=== PATIENT | female | born 1950 | race Caucasian/White ===

== ENCOUNTER 2023-12-04 13:14 | Inpatient (IN) | payer MEDICARE, OTHER ==
--- NOTE | 2023-12-04 15:15 | ED ---
Skin/Abscess/FB HPI - General Chief complaint: Skin/Abscess/Foreign Body Stated complaint: Leg wound Time Seen by Provider: 12/04/23 13:40 Source: EMS Mode of arrival: EMS Limitations: no limitations - History of Present Illness Initial comments: 73-year-old female presents emergency department with abdominal wound. She reports that on Saturday she noted that she began having some drainage from her abdominal wall. She has been attempting to cover this area but it consistently continues to drain. She denies any pain at the site. No fevers. Does admit to some generalized weakness. No history of cancer. She denies any chest pain or shortness of breath. She states that she has not been eating or drinking. She has been sitting in her chair. Normally has a friend who obtains groceries for her. EMS found the patient to have extremely malodorous drainage from her abdominal wall. Also large sacral wound is noted. No other alleviating, precipitating or modifying factors - Related Data Home Medications Medication Instructions Recorded Confirmed No Known Home Medications 12/04/23 12/04/23 Allergies Allergy/AdvReac Type Severity Reaction Status Date / Time latex Allergy Rash/Hives Verified 12/04/23 17:49 Review of Systems ROS Statement: Those systems with pertinent positive or pertinent negative responses have been documented in the HPI. ROS Other: All systems not noted in ROS Statement are negative. Past Medical History Past Medical History: Unable to Obtain History of Any Multi-Drug Resistant Organisms: None Reported Additional Past Surgical History / Comment(s): R below the knee amputation Past Psychological History: No Psychological Hx Reported - Past Family History Father Additional Family Medical History / Comment(s): Colon Cancer General Exam Limitations: no limitations General appearance: alert, in no apparent distress Head exam: Present: atraumatic, normocephalic, normal inspection Eye exam: Present: normal appearance, PERRL, EOMI. Absent: scleral icterus, conjunctival injection, periorbital swelling ENT exam: Present: normal exam, mucous membranes moist Neck exam: Present: normal inspection. Absent: tenderness, meningismus, lymphadenopathy Respiratory exam: Present: normal lung sounds bilaterally. Absent: respiratory distress, wheezes, rales, rhonchi, stridor Cardiovascular Exam: Present: regular rate, normal rhythm, normal heart sounds. Absent: systolic murmur, diastolic murmur, rubs, gallop, clicks GI/Abdominal exam: Present: other (through and through defect left lower abdominal wall spilling fecal material, malodorous). Absent: distended, guarding, rebound, rigid Extremities exam: Present: normal inspection, full ROM, normal capillary refill. Absent: tenderness, pedal edema, joint swelling, calf tenderness Back exam: Present: normal inspection Neurological exam: Present: alert, oriented X3, CN II-XII intact Psychiatric exam: Present: normal affect, normal mood Skin exam: Present: warm, dry, intact, normal color. Absent: rash Course Vital Signs 12/04/23 12/04/23 12/04/23 13:30 13:35 13:40 Temperature 98.6 F Pulse Rate 89 86 86 Respiratory 15 18 21 Rate Blood Pressure 129/51 119/63 119/63 O2 Sat by Pulse 96 Oximetry 12/04/23 12/04/23 12/04/23 18:48 19:19 20:52 Temperature Pulse Rate 81 80 Respiratory 18 14 Rate Blood Pressure 87/42 96/43 94/43 O2 Sat by Pulse 97 94 L Oximetry 12/04/23 12/04/23 12/04/23 21:18 22:00 22:20 Temperature Pulse Rate 85 79 79 Respiratory 16 16 22 Rate Blood Pressure 86/58 91/41 73/40 O2 Sat by Pulse 100 97 97 Oximetry 12/04/23 12/04/23 12/04/23 22:25 23:08 23:30 Temperature Pulse Rate 81 79 81 Respiratory 17 18 16 Rate Blood Pressure 86/38 89/39 84/54 O2 Sat by Pulse 97 98 97 Oximetry 12/05/23 12/05/23 12/05/23 01:00 02:00 04:00 Temperature Pulse Rate 82 79 84 Respiratory 18 18 18 Rate Blood Pressure 81/36 91/40 98/42 O2 Sat by Pulse 98 98 96 Oximetry 12/05/23 12/05/23 12/05/23 05:00 06:24 07:00 Temperature Pulse Rate 82 92 87 Respiratory 18 18 18 Rate Blood Pressure 99/50 101/52 102/51 O2 Sat by Pulse 98 95 97 Oximetry 12/05/23 12/05/23 12/05/23 09:17 11:00 13:40 Temperature Pulse Rate 85 85 78 Respiratory 18 18 18 Rate Blood Pressure 97/46 104/81 111/51 O2 Sat by Pulse 97 98 98 Oximetry Medical Decision Making - Medical Decision Making Was pt. sent in by a medical professional or institution (, SONAL, QUALITY AUDIT REPRESENTATIVE, urgent care, hospital, or intermediate...) When possible be specific @ -No Did you speak to anyone other than the patient for history (EMS, parent, family, police, friend...)? What history was obtained from this source @ -EMS Did you review nursing and triage notes (agree or disagree)? Why? @ -I reviewed and agree with nursing and triage notes Were old charts reviewed (outside hosp., previous admission, EMS record, old EKG, old radiological studies, urgent care reports/EKG's, intermediate records)? Report findings @ -No old charts were reviewed Differential Diagnosis (chest pain, altered mental status, abdominal pain women, abdominal pain men, vaginal bleeding, weakness, fever, dyspnea, syncope, h eadache, dizziness, GI bleed, back pain, seizure, CVA, palpatations, mental health, musculoskeletal)? @ -diverticulitis, colitis, cancer, coloenteric fistula EKG interpreted by me (3pts min.). @ -Yes and demonstrates sinus rhythm with a rate of 85. MA interval 164. QRS 84. QTc of 443. No acute ST segment elevations or depressions X-rays interpreted by me (1pt min.). @ -None done CT interpreted by me (1pt min.). @ -pending U/S interpreted by me (1pt. min.). @ -None done What testing was considered but not performed or refused? (CT, X-rays, U/S, labs)? Why? @ -None What meds were considered but not given or refused? Why? @ -None Did you discuss the management of the patient with other professionals (professionals i.e. , SONAL, QUALITY AUDIT REPRESENTATIVE, lab, RT, psych nurse, social media developer, farm tractor mechanic, teacher, ground nuclear weapons assembly officer, ed case manager)? Give summary @ -dr barakat who will follow up on ordered CT Was smoking cessation discussed for >3mins.? @ -No Was critical care preformed (if so, how long)? @ -No Were there social determinants of health that impacted care today? How? (Homelessness, low income, unemployed, alcoholism, drug addiction, transportation, low edu. Level, literacy, decrease access to med. care, prison, rehab)? @ -patient doesn't see a doctor Was there de-escalation of care discussed even if they declined (Discuss DNR or withdrawal of care, Hospice)? DNR status @ -No What co-morbidities impacted this encounter? (DM, HTN, Smoking, COPD, CAD, Cancer, CVA, ARF, Chemo, Hep., AIDS, mental health diagnosis, sleep apnea, morbid obesity)? @ -None Was patient admitted / discharged? Hospital course, mention meds given and route, prescriptions, significant lab abnormalities, going to OR and other pertinent info. @ -admitted. labs and ct ordered. patient administered antibiotics. she will be signed out to dr. barakat pending ct read Undiagnosed new problem with uncertain prognosis? @ -yes Drug Therapy requiring intensive monitoring for toxicity (Heparin, Nitro, Insulin, Cardizem)? @ -No Were any procedures done? @ -No Diagnosis/symptom? @ -acute coloenteric fistula, leukocytosis Acute, or Chronic, or Acute on Chronic? @ -acute Uncomplicated (without systemic symptoms) or Complicated (systemic symptoms)? @ -complicated Side effects of treatment? @ -No Exacerbation, Progression, or Severe Exacerbation? @ -No Poses a threat to life or bodily function? How? (Chest pain, USA, SC, pneumonia, PE, COPD, DKA, ARF, appy, cholecystitis, CVA, Diverticulitis, Homicidal, Svetlana cidal, threat to staff... and all critical care pts) @ -yes, patient has high risk of sepsis - Lab Data Result diagrams: 12/06/23 21:21 12/06/23 21:21 Lab Results 12/04/23 12/04/23 12/04/23 Range/Units 13:44 13:44 13:44 WBC 23.4 H (3.8-10.6) k/uL RBC 3.27 L (3.80-5.40) m/uL Hgb 7.4 L (11.4-16.0) gm/dL Hct 24.6 L (34.0-46.0) % MCV 75.3 L (80.0-100.0) fL MCH 22.7 L (25.0-35.0) pg MCHC 30.1 L (31.0-37.0) g/dL RDW 20.5 H (11.5-15.5) % Plt Count 763 H (150-450) k/uL MPV 6.8 Neutrophils % 94 % Lymphocytes % 4 % Monocytes % 1 % Eosinophils % 1 % Basophils % 0 % Neutrophils # 22.0 H (1.3-7.7) k/uL Lymphocytes # 0.9 L (1.0-4.8) k/uL Monocytes # 0.3 (0-1.0) k/uL Eosinophils # 0.1 (0-0.7) k/uL Basophils # 0.0 (0-0.2) k/uL Hypochromasia Marked Anisocytosis Moderate Microcytosis Moderate Sodium 139 (137-145) mmol/L Potassium 2.9 L (3.5-5.1) mmol/L Chloride 107 (98-107) mmol/L Carbon Dioxide 25 (22-30) mmol/L Anion Gap 7 mmol/L BUN 16 (7-17) mg/dL Creatinine 0.77 (0.52-1.04) mg/dL Est GFR (CKD-EPI)AfAm 89 (>60 ml/min/1.73 sqM) Est GFR (CKD-EPI)NonAf 77 (>60 ml/min/1.73 sqM) Glucose 89 (74-99) mg/dL Plasma Lactic Acid Festus (0.7-2.0) mmol/L Calcium 7.6 L (8.4-10.2) mg/dL Total Bilirubin 0.4 (0.2-1.3) mg/dL AST 16 (14-36) U/L ALT 7 (4-34) U/L Alkaline Phosphatase 169 H (38-126) U/L Troponin I (0.000-0.034) ng/mL Total Protein 4.9 L (6.3-8.2) g/dL Albumin 2.0 L (3.5-5.0) g/dL Lipase <10 L (23-300) U/L Urine Color Yellow Urine Appearance Cloudy H (Clear) Urine pH 5.5 (5.0-8.0) Ur Specific Ariton 1.020 (1.001-1.035) Urine Protein 1+ H (Negative) Urine Glucose (UA) Negative (Negative) Urine Ketones 1+ H (Negative) Urine Blood Large H (Negative) Urine Nitrite Positive H (Negative) Urine Bilirubin Negative (Negative) Urine Urobilinogen 2.0 (<2.0) mg/dL Ur Leukocyte Esterase Large H (Negative) Urine RBC 8 H (0-5) /hpf Urine WBC 13 H (0-5) /hpf Ur Squamous Epith Cells 1 (0-4) /hpf Urine Bacteria Many H (None) /hpf Urine Mucus Moderate H (None) /hpf Blood Type Confirm 12/04/23 12/04/23 12/04/23 Range/Units 13:44 13:44 13:44 WBC (3.8-10.6) k/uL RBC (3.80-5.40) m/uL Hgb (11.4-16.0) gm/dL Hct (34.0-46.0) % MCV (80.0-100.0) fL MCH (25.0-35.0) pg MCHC (31.0-37.0) g/dL RDW (11.5-15.5) % Plt Count (150-450) k/uL MPV Neutrophils % % Lymphocytes % % Monocytes % % Eosinophils % % Basophils % % Neutrophils # (1.3-7.7) k/uL Lymphocytes # (1.0-4.8) k/uL Monocytes # (0-1.0) k/uL Eosinophils # (0-0.7) k/uL Basophils # (0-0.2) k/uL Hypochromasia Anisocytosis Microcytosis Sodium (137-145) mmol/L Potassium (3.5-5.1) mmol/L Chloride (98-107) mmol/L Carbon Dioxide (22-30) mmol/L Anion Gap mmol/L BUN (7-17) mg/dL Creatinine (0.52-1.04) mg/dL Est GFR (CKD-EPI)AfAm (>60 ml/min/1.73 sqM) Est GFR (CKD-EPI)NonAf (>60 ml/min/1.73 sqM) Glucose (74-99) mg/dL Plasma Lactic Acid Festus 0.9 (0.7-2.0) mmol/L Calcium (8.4-10.2) mg/dL Total Bilirubin (0.2-1.3) mg/dL AST (14-36) U/L ALT (4-34) U/L Alkaline Phosphatase (38-126) U/L Troponin I <0.012 (0.000-0.034) ng/mL Total Protein (6.3-8.2) g/dL Albumin (3.5-5.0) g/dL Lipase (23-300) U/L Urine Color Urine Appearance (Clear) Urine pH (5.0-8.0) Ur Specific Ariton (1.001-1.035) Urine Protein (Negative) Urine Glucose (UA) (Negative) Urine Ketones (Negative) Urine Blood (Negative) Urine Nitrite (Negative) Urine Bilirubin (Negative) Urine Urobilinogen (<2.0) mg/dL Ur Leukocyte Esterase (Negative) Urine RBC (0-5) /hpf Urine WBC (0-5) /hpf Ur Squamous Epith Cells (0-4) /hpf Urine Bacteria (None) /hpf Urine Mucus (None) /hpf Blood Type Confirm A Positive Disposition Clinical Impression: Bricelyn-enteric fistula Disposition: ADMITTED IP TO THIS [facility] Condition: Critical Is patient prescribed a controlled substance at d/c from ED?: No
[2023-12-04 15:34] LABS: Anisocytosis Moderate; Basophils % (A) 0 %; Eosinophils # (A) 0.1 k/uL (0-0.7); Eosinophils % (A) 1 %; HCT 24.6 % (34.0-46.0); HGB 7.4 gm/dL (11.4-16.0); Hypochromasia Marked; Lymphocytes # (A) 0.9 k/uL (1.0-4.8); Lymphocytes % (A) 4 %; MCH 22.7 pg (25.0-35.0); MCHC 30.1 g/dL (31.0-37.0); MCV 75.3 fL (80.0-100.0); Mean Platelet Volume 6.8; Microcytosis Moderate; Monocytes # (A) 0.3 k/uL (0-1.0); Monocytes % (A) 1 %; Neutrophils % (A) 94 %; Platelet Count 763 k/uL (150-450); RBC 3.27 m/uL (3.80-5.40); RDW 20.5 % (11.5-15.5); WBC 23.4 k/uL (3.8-10.6)
[2023-12-04] MEDS: SODIUM CHLORIDE 0.9% 1,000 ML IV STA (15:38)
[2023-12-04 16:04] LABS: ALT 7 U/L (4-34); AST 16 U/L (14-36); African American GFR (CKD) 89 (>60 ml/min/1.73 sqM); Alkaline Phosphatase 169 U/L (38-126); Anion Gap 7 mmol/L; Blood Urea Nitrogen 16 mg/dL (7-17); Calcium 7.6 mg/dL (8.4-10.2); Carbon Dioxide 25 mmol/L (22-30); Chloride 107 mmol/L (98-107); Glucose 89 mg/dL (74-99); Lipase <10 U/L (23-300); Non-African American GFR(CKD) 77 (>60 ml/min/1.73 sqM); Potassium 2.9 mmol/L (3.5-5.1); Sodium 139 mmol/L (137-145); Total Bilirubin 0.4 mg/dL (0.2-1.3); Total Protein 4.9 g/dL (6.3-8.2)
[2023-12-04] MEDS: PIPERACILLIN-TAZOBACTAM 3.375 GM in SODIUM CHLORIDE 0.9% 100 ML IVPB STA (17:51)
[2023-12-04 17:54] LABS: Appearance,Urine Cloudy (Clear); Bacteria,Urine Many /hpf; Bilirubin,Urine Negative (Negative); Blood,Urine Large (Negative); Color,Urine Yellow; Glucose,Urine (UA) Negative (Negative); Ketones,Urine 1+ (Negative); Leukocyte Esterase,Urine Large (Negative); Mucus,Urine Moderate /hpf; Nitrite,Urine Positive (Negative); PH, Urine 5.5 (5.0-8.0); Protein,Urine 1+ (Negative); RBC,Urine 8 /hpf (0-5); Squamous Epithelial Cell,Urine 1 /hpf (0-4); WBC,Urine 13 /hpf (0-5)
--- NOTE | 2023-12-04 18:01 | CT ---
EXAMINATION TYPE: CT abdomen pelvis w con DATE OF EXAM: 12/04/2023 COMPARISON: NONE HISTORY: 73-year-old female Pain/drainage coming from wound on lower stomach, cancer. TECHNIQUE: Contiguous axial scanning of the abdomen and pelvis following administration of 100 ml Iso jelena 300 IV contrast. Delayed images through the kidneys and coronal/sagittal reconstructions perform ed. CT DLP: 1004.3 mGycm Automated exposure control for dose reduction was used. FINDINGS: The heart is normal size without pericardial effusion. Mild generalized anasarca unchanged. Gallbladder mildly hydropic without any surrounding inflammation. Multiple gallstones measuring up to 1.7 cm. Hydrocele related to fasting state. Some focal fat along the anterior falciform ligament. Portal venous system is patent. No biliary duct al dilatation. A 2.1 cm left adrenal nodule is noted. A 1.3 cm right adrenal nodule. Right kidney, spleen, and atrophic pancreas show no gross abnormality. Left-sided renal cortical cysts, largest measuring 4.4 cm. No dilated small bowel, free fluid, or free air. No mesenteric or retroperitoneal lymphadenopathy. Normal appendix. Scattered mild stool. There is moderate circumferential wall thickening extending from the mid sigmoid colon to the rectum and some scattered sigmoid colonic diverticulosis also noted. Possible subtle intermural phlegmon, fo r example, axial image 67 and coronal image 43 also containing small foci of air, coronal image 44. Bladder is partially distended and demonstrates focal tenting along the dome of the bladder where the re may be a fistulous tract extending superiorly to a 3 cm loculated air. There may be a second fistu lous communication with the subjacent thickened mid sigmoid colon, coronal image 36 and 37. Possible additional fistulous communication extending laterally from the thickened sigmoid colon in t he left inguinal region where the patient's wound is present, axial images 67 and 68 and coronal imag e 33. Uterus surgically absent. Questionable visualization of small bilateral ovaries. An additional midline sacral decubitus ulcer is noted. This is a nearly full-thickness wound at the l evel of the coccyx without any john osseous erosion seen at this time. Moderate multilevel spondylotic change in the lumbar spine. IMPRESSION: 1. MODERATELY THICKENED MID TO DISTAL SIGMOID COLON AND RECTUM, POSSIBLE SUBACUTE DIVERTICULITIS/COLI TIS. SOME SCATTERED INTRAMURAL PHLEGMON MAY BE PRESENT. 2. POSSIBLE FISTULOUS COMMUNICATION EXTENDING SUPERIORLY FROM THE THICKENED MID SIGMOID COLON TO A 3 CM LOCULE OF AIR. ANOTHER POSSIBLE FISTULOUS COMMUNICATION FROM THIS LOCULE OF AIR DOWN TO THE DOME O F THE BLADDER. 3. A THIRD POSSIBLE FISTULA (ENTEROCUTANEOUS) EXTENDING FROM THE LEFT LATERAL WALL OF THE MID SIGMOID TO THE LEFT INGUINAL REGION WHERE THE PATIENT'S WOUND IS LOCATED. 4. ADDITIONAL DEEP MIDLINE SACRAL DECUBITUS ULCER. THIS IS A FULL-THICKNESS ULCER CONTACTING THE UNDE RLYING COCCYX. NO JOHN BONY DESTRUCTION IS SEEN TO CLEARLY INDICATE A CONTIGUOUS OSTEOMYELITIS AT TH IS TIME. CAREFUL SURVEILLANCE FOLLOW-UP IS ADVISED FOR IMPENDING OSTEOMYELITIS. 5. RECOMMEND THREE-MONTH FOLLOW-UP ADRENAL MASS PROTOCOL CT TO REASSESS THE 2.1 CM LEFT ADRENAL NODUL E AND 1.3 CM RIGHT ADRENAL NODULE . 6. CHOLELITHIASIS, GENERALIZED ANASARCA CHANGE.
[2023-12-04] MEDS ORDERED: NALOXONE 0.4 MG/ML 1 ML VIAL IV PRN (18:04)
[2023-12-04] MEDS ORDERED: Potassium Replacement Protocol 1 EACH MISC MISCELLANE PRN ×2 (18:55→19:17)
[2023-12-04] MEDS ORDERED: Magnesium Replacement Protocol 1 EACH MISC MISCELLANE PRN (19:17)
--- NOTE | 2023-12-04 19:44 | P.HPIM ---
History of Present Illness This is a pleasant 73 years old female who presents to the emergency room for lower abdominal fistula drainage, associated with generalized weakness. Patient looks awake alert but tired looking, pale. Feels generally weak. N has mild generalized abdominal pain and tenderness. No rebound tenderness. Blood with malodorous left lower abdominal fistula drainage with fecal material coming out. Patient also with right rotation. Patient also with unstageable sacral pressure ulcer. With some evidence of cellulitis. Patient is mildly confused. But no headache or weakness in upper or lower patient was hypotensive with a blood pressure/42, currently slightly better 96/43. Potassium is low 2.9, WBC elevated 23,000, hemoglobin 7.4. Creatinine 0.7. Liver enzymes unremarkable. CT of the abdomen pelvis showing sigmoid diverticulitis and proctitis. 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 Please refer to the report for more details. Patient was ordered received normal saline boluses. Currently on Normosol at 130 mL/h She received 1 dose of Zosyn and started on Flagyl. We are going to add cefepime for gram-negative coverage. Review of Systems Review of systems CONSTITUTIONAL: No fever, no malaise, no fatigue. HEENT: No recent visual problems or hearing problems. Denied any sore throat. CARDIOVASCULAR: No orthopnea, PND, no palpitations, no syncope. PULMONARY: No shortness of breath, no cough, no hemoptysis. -GASTROINTESTINAL: As above NEUROLOGICAL: No headaches, no weakness, no numbness. HEMATOLOGICAL: Denies any bleeding or petechiae. GENITOURINARY: Denies any burning micturition, frequency, or urgency. MUSCULOSKELETAL/RHEUMATOLOGICAL: Denies any joint pain, swelling, or any muscle pain. ENDOCRINE: Denies any polyuria or polydipsia. Past Medical History Past Medical History: Unable to Obtain History of Any Multi-Drug Resistant Organisms: None Reported Additional Past Surgical History / Comment(s): R below the knee amputation Past Psychological History: No Psychological Hx Reported Medications and Allergies Home Medications Medication Instructions Recorded Confirmed Type No Known Home Medications 12/04/23 12/04/23 History Allergies Allergy/AdvReac Type Severity Reaction Status Date / Time latex Allergy Rash/Hives Verified 12/04/23 17:49 Physical Exam Vitals: Vital Signs Temp Pulse Resp BP Pulse Ox 12/04/23 13:35 98.6 F 86 18 119/63 96 Intake and Output 12/03/23 12/04/23 12/04/23 22:59 06:59 14:59 Other: Weight 81.647 kg -GENERAL: The patient is alert and oriented x3, confused, not in any acute distress. Well developed, well nourished. -HEENT: Pupils are round and equally reacting to light. EOMI. No scleral icterus. No conjunctival pallor. Normocephalic, atraumatic. No pharyngeal saray thema. No thyromegaly. CARDIOVASCULAR: S1 and S2 present. No murmurs, rubs, or gallops.., With dry mucous membrane PULMONARY: Chest is clear to auscultation, no wheezing , no crackles. -ABDOMEN: Soft, nontender, nondistended, normoactive bowel sounds. No palpable organomegaly. Left lower abdominal fistula with fecal material draining, light brown, looks formed, mildly loose. No blood. No black discoloration. No evidence of cellulitis. No significant tenderness, has generalized tenderness, mild no rebound tenderness. -MUSCULOSKELETAL: No joint swelling or deformity. Unstageable sacral pressure ulcer EXTREMITIES: No cyanosis, clubbing, or pedal edema. NEUROLOGICAL: Gross neurological examination did not reveal any focal deficits. SKIN: No rashes. no petechiae. Results CBC & Chem 7: 12/04/23 13:44 12/04/23 13:44 Assessment and Plan Assessment: Pointed colitis acute sigmoid colitis, diverticulitis with proctitis. With multiple anterior cutaneous and anterior for cycle fistulas, including to the left lower abdominal wall. Severe sepsis with leukocytosis and hypotension, present on admission. Dehydration and hypovolemia. Acute anemia, unknown baseline, chronic microcytic Full-thickness sacral pressure ulcer, with no obvious osseous erosions. Metabolic encephalopathy, with possible elements of delirium Bilateral adrenal nodule, recommend follow-up CT in 3 months. Acute urinary tract infection/cystitis Plan: Continue with IV fluid and monitor vitals Continue with antibiotic, Flagyl and add IV cefepime IV Protonix Keep n.p.o. Surgery team consult already contacted from the emergency room Replace monitor hemoglobin and transfuse for Hb less than 7 tart patient on IV Protonix. Vitamin B 1 2 Check for C. difficile ID team consult Monitor and follow-up blood culture DVT prophylaxis: Hold on anticoagulation now to rule out GI bleed. SCD GI prophylaxis: Protonix Prognosis guarded
[2023-12-04] MEDS: SODIUM CHLORIDE 0.9% 500 ML 500 ML IV ONE (20:08)
[2023-12-04] MEDS: SODIUM CHLORIDE 0.9% 1,000 ML IV SCH (20:15)
[2023-12-04] MEDS: metroNIDAZOLE-NS PMX 500 MG in SALINE 1 100ML.BAG IVPB SCH (20:16)
[2023-12-04 20:31] LABS: Anisocytosis Moderate; Basophils % (A) 0 %; Eosinophils % (A) 0 %; HCT 26.4 % (34.0-46.0); HGB 7.9 gm/dL (11.4-16.0); Hypochromasia Marked; Lymphocytes # (A) 1.1 k/uL (1.0-4.8); Lymphocytes % (A) 4 %; MCH 22.9 pg (25.0-35.0); MCV 76.4 fL (80.0-100.0); Mean Platelet Volume 6.6; Microcytosis Moderate; Monocytes # (A) 0.4 k/uL (0-1.0); Monocytes % (A) 2 %; Neutrophils # (A) 22.1 k/uL (1.3-7.7); Neutrophils % (A) 93 %; Platelet Count 735 k/uL (150-450); RBC 3.46 m/uL (3.80-5.40); RDW 20.5 % (11.5-15.5); WBC 23.7 k/uL (3.8-10.6)
[2023-12-04 20:37] LABS: INR 1.3 (<1.2); Partial Thromboplastin Time 31.8 sec (22.0-30.0); Prothrombin Time 13.8 sec (10.0-12.5)
[2023-12-04 21:20] LABS: African American GFR (CKD) >90 (>60 ml/min/1.73 sqM); Anion Gap 9 mmol/L; Blood Urea Nitrogen 16 mg/dL (7-17); Calcium 7.3 mg/dL (8.4-10.2); Carbon Dioxide 19 mmol/L (22-30); Chloride 110 mmol/L (98-107); Glucose 74 mg/dL (74-99); Non-African American GFR(CKD) 86 (>60 ml/min/1.73 sqM); Potassium 3.2 mmol/L (3.5-5.1); Sodium 138 mmol/L (137-145)
[2023-12-04] MEDS: SODIUM CHLORIDE 0.9% 1,000 ML IV ONE (23:13)
[2023-12-04] MEDS: CEFEPIME 2 GM in SODIUM CHLORIDE 0.9% 100 ML IVPB SCH (23:16)
[2023-12-05 02:14] LABS: Glucose,Whole Blood 85 mg/dL (70-110)
[2023-12-05 03:44] LABS: Erythrocyte Sedimentation Rate 75 mm/Hr (0-30)
--- NOTE | 2023-12-05 07:16 | P.GSCN ---
History of Present Illness Consult date: 12/04/23 History of present illness: Patient seen and evaluated. She reports 1 week ago rupture of drainage from the left lower quadrant. Patient has never had a colonoscopy. No prior cardiac risk assessment. No medical care. She reports mild lower lower quadrant abdominal pain. 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 Severe anemia with sepsis. Recommend immediate cardiac risk assessment. Will need colectomy with colostomy as described. Will need infectious disease management. Close follow-up. Past Medical History Past Medical History: Unable to Obtain History of Any Multi-Drug Resistant Organisms: None Reported Additional Past Surgical History / Comment(s): R below the knee amputation Past Psychological History: No Psychological Hx Reported Medications and Allergies Home Medications Medication Instructions Recorded Confirmed Type No Known Home Medications 12/04/23 12/04/23 History Allergies Allergy/AdvReac Type Severity Reaction Status Date / Time latex Allergy Rash/Hives Verified 12/04/23 17:49 Surgical - Exam Vital Signs Pulse Resp BP 89 15 129/51 12/04/23 13:30 12/04/23 13:30 12/04/23 13:30 Results - Labs 12/04/23 20:08 12/04/23 20:08 Abnormal Lab Results - Last 24 Hours (Table) 12/04/23 12/04/23 12/04/23 Range/Units 13:44 13:44 13:44 WBC 23.4 H (3.8-10.6) k/uL RBC 3.27 L (3.80-5.40) m/uL Hgb 7.4 L (11.4-16.0) gm/dL Hct 24.6 L (34.0-46.0) % MCV 75.3 L (80.0-100.0) fL MCH 22.7 L (25.0-35.0) pg MCHC 30.1 L (31.0-37.0) g/dL RDW 20.5 H (11.5-15.5) % Plt Count 763 H (150-450) k/uL Neutrophils # 22.0 H (1.3-7.7) k/uL Lymphocytes # 0.9 L (1.0-4.8) k/uL ESR (0-30) mm/Hr PT (10.0-12.5) sec INR (<1.2) APTT (22.0-30.0) sec Potassium 2.9 L (3.5-5.1) mmol/L Chloride (98-107) mmol/L Carbon Dioxide (22-30) mmol/L Calcium 7.6 L (8.4-10.2) mg/dL Alkaline Phosphatase 169 H (38-126) U/L C-Reactive Protein (<1.0) mg/dL Total Protein 4.9 L (6.3-8.2) g/dL Albumin 2.0 L (3.5-5.0) g/dL Lipase <10 L (23-300) U/L Urine Appearance Cloudy H (Clear) Urine Protein 1+ H (Negative) Urine Ketones 1+ H (Negative) Urine Blood Large H (Negative) Urine Nitrite Positive H (Negative) Ur Leukocyte Esterase Large H (Negative) Urine RBC 8 H (0-5) /hpf Urine WBC 13 H (0-5) /hpf Urine Bacteria Many H (None) /hpf Urine Mucus Moderate H (None) /hpf 12/04/23 12/04/23 12/04/23 Range/Units 20:08 20:08 20:08 WBC 23.7 H (3.8-10.6) k/uL RBC 3.46 L (3.80-5.40) m/uL Hgb 7.9 L (11.4-16.0) gm/dL Hct 26.4 L (34.0-46.0) % MCV 76.4 L (80.0-100.0) fL MCH 22.9 L (25.0-35.0) pg MCHC 30.0 L (31.0-37.0) g/dL RDW 20.5 H (11.5-15.5) % Plt Count 735 H (150-450) k/uL Neutrophils # 22.1 H (1.3-7.7) k/uL Lymphocytes # (1.0-4.8) k/uL ESR 75 H (0-30) mm/Hr PT 13.8 H (10.0-12.5) sec INR 1.3 H (<1.2) APTT 31.8 H (22.0-30.0) sec Potassium 3.2 L (3.5-5.1) mmol/L Chloride 110 H (98-107) mmol/L Carbon Dioxide 19 L (22-30) mmol/L Calcium 7.3 L (8.4-10.2) mg/dL Alkaline Phosphatase (38-126) U/L C-Reactive Protein 25.0 H (<1.0) mg/dL Total Protein (6.3-8.2) g/dL Albumin (3.5-5.0) g/dL Lipase (23-300) U/L Urine Appearance (Clear) Urine Protein (Negative) Urine Ketones (Negative) Urine Blood (Negative) Urine Nitrite (Negative) Ur Leukocyte Esterase (Negative) Urine RBC (0-5) /hpf Urine WBC (0-5) /hpf Urine Bacteria (None) /hpf Urine Mucus (None) /hpf Diabetes panel 12/04/23 12/04/23 Range/Units 13:44 20:08 Sodium 139 138 (137-145) mmol/L Potassium 2.9 L 3.2 L (3.5-5.1) mmol/L Chloride 107 110 H (98-107) mmol/L Carbon Dioxide 25 19 L (22-30) mmol/L BUN 16 16 (7-17) mg/dL Creatinine 0.77 0.71 (0.52-1.04) mg/dL Glucose 89 74 (74-99) mg/dL Calcium 7.6 L 7.3 L (8.4-10.2) mg/dL AST 16 (14-36) U/L ALT 7 (4-34) U/L Alkaline Phosphatase 169 H (38-126) U/L Total Protein 4.9 L (6.3-8.2) g/dL Albumin 2.0 L (3.5-5.0) g/dL Calcium panel 12/04/23 12/04/23 Range/Units 13:44 20:08 Calcium 7.6 L 7.3 L (8.4-10.2) mg/dL Albumin 2.0 L (3.5-5.0) g/dL Pituitary panel 12/04/23 12/04/23 Range/Units 13:44 20:08 Sodium 139 138 (137-145) mmol/L Potassium 2.9 L 3.2 L (3.5-5.1) mmol/L Chloride 107 110 H (98-107) mmol/L Carbon Dioxide 25 19 L (22-30) mmol/L BUN 16 16 (7-17) mg/dL Creatinine 0.77 0.71 (0.52-1.04) mg/dL Glucose 89 74 (74-99) mg/dL Calcium 7.6 L 7.3 L (8.4-10.2) mg/dL Adrenal panel 12/04/23 12/04/23 Range/Units 13:44 20:08 Sodium 139 138 (137-145) mmol/L Potassium 2.9 L 3.2 L (3.5-5.1) mmol/L Chloride 107 110 H (98-107) mmol/L Carbon Dioxide 25 19 L (22-30) mmol/L BUN 16 16 (7-17) mg/dL Creatinine 0.77 0.71 (0.52-1.04) mg/dL Glucose 89 74 (74-99) mg/dL Calcium 7.6 L 7.3 L (8.4-10.2) mg/dL Total Bilirubin 0.4 (0.2-1.3) mg/dL AST 16 (14-36) U/L ALT 7 (4-34) U/L Alkaline Phosphatase 169 H (38-126) U/L Total Protein 4.9 L (6.3-8.2) g/dL Albumin 2.0 L (3.5-5.0) g/dL
[2023-12-05] MEDS: PANTOPRAZOLE 40 MG/10 ML VIAL IVP SCH (09:14)
[2023-12-05 09:21] LABS: Glucose,Whole Blood 65 mg/dL (70-110)
--- NOTE | 2023-12-05 09:43 | P.PN ---
Subjective This is a pleasant 73 years old female who presents to the emergency room for lower abdominal fistula drainage, associated with generalized weakness. Patient looks awake alert but tired looking, pale. Feels generally weak. N has mild generalized abdominal pain and tenderness. No rebound tenderness. Blood with malodorous left lower abdominal fistula drainage with fecal material coming out. Patient also with right rotation. Patient also with unstageable sacral pressure ulcer. With some evidence of cellulitis. Patient is mildly confused. But no headache or weakness in upper or lower patient was hypotensive with a blood pressure/42, currently slightly better 96/43. Potassium is low 2.9, WBC elevated 23,000, hemoglobin 7.4. Creatinine 0.7. Liver enzymes unremarkable. CT of the abdomen pelvis showing sigmoid diverticulitis and proctitis. 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 Please refer to the report for more details. Patient was ordered received normal saline boluses. Currently on Normosol at 130 mL/h She received 1 dose of Zosyn and started on Flagyl. We are going to add cefepime for gram-negative coverage. 12/05/2023 Patient is awake and alert, generally weak and tired, mildly drowsy Denies abdominal pain or tenderness, she has fistula in the left lower abdomen She denies chest pain or dyspnea. No headache dizziness weakness or numbness. No breathing difficulty. And currently she is saturating well on room air. Blood pressure is still on the low side.but is improving while on IV fluid Glucose 65 and her fluids changed to D5 normal saline at 1 30 mL/h She is currently covered with cefepime and IV Flagyl and IV Protonix She has leukocytosis of 23,000, hemoglobin stable 7.9, low potassium been replaced. Magnesium is normal 2.0. B12 541, Elevated ESR 75 and CRP 25 Patient at moderate risk for her multiple medical problems. Because of this ec hocardiogram was requested and cardiology consulted for preop evaluation. Review of systems CONSTITUTIONAL: No fever, no malaise, no fatigue. HEENT: No recent visual problems or hearing problems. Denied any sore throat. CARDIOVASCULAR: No orthopnea, PND, no palpitations, no syncope. PULMONARY: No shortness of breath, no cough, no hemoptysis. GASTROINTESTINAL:no nausea, no vomiting, no abdominal pain. Normoactive bowel sounds. NEUROLOGICAL: No headaches, no weakness, no numbness. Active Medications Generic Name Dose Route Start Last Admin Trade Name Freq PRN Reason Stop Dose Admin Acetaminophen 650 mg 12/04/23 18:04 Acetaminophen Tab 325 Mg Tab PO Q6HR PRN Mild Pain or Fever > 100.5 Metronidazole 500 mg/ IV 100 mls @ 100 mls/hr 12/04/23 19:00 12/05/23 04:39 Solution IVPB 100 mls/hr Q8H [facility] Administration Protocol Cefepime HCl 2 gm/ Sodium 100 mls @ 25 mls/hr 12/05/23 00:00 12/05/23 09:16 Chloride IVPB 25 mls/hr Q8HR [facility] Administration Protocol Dextrose/Sodium Chloride 1,000 mls @ 130 mls/hr 12/05/23 09:45 Dextrose 5%-Ns Iv Soln IV .[id number] [facility] Miscellaneous Information 1 each 12/04/23 19:17 Potassium Replacement Protocol 1 Each Misc MISCELLANE DAILY PRN Per Protocol Protocol Miscellaneous Information 1 each 12/04/23 19:17 Magnesium Replacement Protocol 1 Each Misc MISCELLANE DAILY PRN Per Protocol Protocol Miscellaneous Information 1 each 12/04/23 18:55 Potassium Replacement Protocol 1 Each Misc MISCELLANE DAILY PRN Per Protocol Protocol Morphine Sulfate 4 mg 12/04/23 18:04 Morphine Sulfate 4 Mg/Ml Syringe IV Q4HR PRN Severe Pain (Scale 7 to 10) Naloxone HCl 0.2 mg 12/04/23 18:04 Naloxone 0.4 Mg/Ml 1 Ml Vial IV Q2M PRN Opioid Reversal Pantoprazole Sodium 40 mg 12/05/23 09:00 12/05/23 09:14 Pantoprazole 40 Mg/10 Ml Vial IVP 40 mg DAILY [facility] Administration Objective - Vital Signs Vital signs: Vital Signs Temp 98.6 F 12/04/23 13:35 Pulse 85 12/05/23 09:17 Resp 18 12/05/23 09:17 BP 97/46 12/05/23 09:17 Pulse Ox 97 12/05/23 09:17 FiO2 Intake & Output 12/04/23 12/05/23 12/05/23 18:59 06:59 18:59 Weight 81.647 kg - Exam -GENERAL: The patient is alert and oriented x3, mildly drowsy not in any acute distress. Well developed, well nourished. HEENT: Pupils are round and equally reacting to light. EOMI. No scleral icterus. No conjunctival pallor. Normocephalic, atraumatic. No pharyngeal erythema. No thyromegaly. CARDIOVASCULAR: S1 and S2 present. No murmurs, rubs, or gallops. PULMONARY: Chest is clear to auscultation, no wheezing , no crackles. -ABDOMEN: Soft, nontender, nondistended, normoactive bowel sounds. No palpable organomegaly. Left lower abdominal war fecal fistula MUSCULOSKELETAL: No joint swelling or deformity. -EXTREMITIES: No cyanosis, clubbing, or pedal edema. Right knee amputation, old NEUROLOGICAL: Gross neurological examination did not reveal any focal deficits. SKIN: No rashes. no petechiae. - Labs CBC & Chem 7: 12/04/23 20:08 12/04/23 20:08 Labs: Abnormal Lab Results - Last 24 Hours (Table) 12/04/23 12/04/23 12/04/23 Range/Units 13:44 13:44 13:44 WBC 23.4 H (3.8-10.6) k/uL RBC 3.27 L (3.80-5.40) m/uL Hgb 7.4 L (11.4-16.0) gm/dL Hct 24.6 L (34.0-46.0) % MCV 75.3 L (80.0-100.0) fL MCH 22.7 L (25.0-35.0) pg MCHC 30.1 L (31.0-37.0) g/dL RDW 20.5 H (11.5-15.5) % Plt Count 763 H (150-450) k/uL Neutrophils # 22.0 H (1.3-7.7) k/uL Lymphocytes # 0.9 L (1.0-4.8) k/uL ESR (0-30) mm/Hr PT (10.0-12.5) sec INR (<1.2) APTT (22.0-30.0) sec Potassium 2.9 L (3.5-5.1) mmol/L Chloride (98-107) mmol/L Carbon Dioxide (22-30) mmol/L POC Glucose (mg/dL) (70-110) mg/dL Calcium 7.6 L (8.4-10.2) mg/dL Alkaline Phosphatase 169 H (38-126) U/L C-Reactive Protein (<1.0) mg/dL Total Protein 4.9 L (6.3-8.2) g/dL Albumin 2.0 L (3.5-5.0) g/dL Lipase <10 L (23-300) U/L Urine Appearance Cloudy H (Clear) Urine Protein 1+ H (Negative) Urine Ketones 1+ H (Negative) Urine Blood Large H (Negative) Urine Nitrite Positive H (Negative) Ur Leukocyte Esterase Large H (Negative) Urine RBC 8 H (0-5) /hpf Urine WBC 13 H (0-5) /hpf Urine Bacteria Many H (None) /hpf Urine Mucus Moderate H (None) /hpf 12/04/23 12/04/23 12/04/23 Range/Units 20:08 20:08 20:08 WBC 23.7 H (3.8-10.6) k/uL RBC 3.46 L (3.80-5.40) m/uL Hgb 7.9 L (11.4-16.0) gm/dL Hct 26.4 L (34.0-46.0) % MCV 76.4 L (80.0-100.0) fL MCH 22.9 L (25.0-35.0) pg MCHC 30.0 L (31.0-37.0) g/dL RDW 20.5 H (11.5-15.5) % Plt Count 735 H (150-450) k/uL Neutrophils # 22.1 H (1.3-7.7) k/uL Lymphocytes # (1.0-4.8) k/uL ESR 75 H (0-30) mm/Hr PT 13.8 H (10.0-12.5) sec INR 1.3 H (<1.2) APTT 31.8 H (22.0-30.0) sec Potassium 3.2 L (3.5-5.1) mmol/L Chloride 110 H (98-107) mmol/L Carbon Dioxide 19 L (22-30) mmol/L POC Glucose (mg/dL) (70-110) mg/dL Calcium 7.3 L (8.4-10.2) mg/dL Alkaline Phosphatase (38-126) U/L C-Reactive Protein 25.0 H (<1.0) mg/dL Total Protein (6.3-8.2) g/dL Albumin (3.5-5.0) g/dL Lipase (23-300) U/L Urine Appearance (Clear) Urine Protein (Negative) Urine Ketones (Negative) Urine Blood (Negative) Urine Nitrite (Negative) Ur Leukocyte Esterase (Negative) Urine RBC (0-5) /hpf Urine WBC (0-5) /hpf Urine Bacteria (None) /hpf Urine Mucus (None) /hpf 12/05/23 Range/Units 09:20 WBC (3.8-10.6) k/uL RBC (3.80-5.40) m/uL Hgb (11.4-16.0) gm/dL Hct (34.0-46.0) % MCV (80.0-100.0) fL MCH (25.0-35.0) pg MCHC (31.0-37.0) g/dL RDW (11.5-15.5) % Plt Count (150-450) k/uL Neutrophils # (1.3-7.7) k/uL Lymphocytes # (1.0-4.8) k/uL ESR (0-30) mm/Hr PT (10.0-12.5) sec INR (<1.2) APTT (22.0-30.0) sec Potassium (3.5-5.1) mmol/L Chloride (98-107) mmol/L Carbon Dioxide (22-30) mmol/L POC Glucose (mg/dL) 65 L (70-110) mg/dL Calcium (8.4-10.2) mg/dL Alkaline Phosphatase (38-126) U/L C-Reactive Protein (<1.0) mg/dL Total Protein (6.3-8.2) g/dL Albumin (3.5-5.0) g/dL Lipase (23-300) U/L Urine Appearance (Clear) Urine Protein (Negative) Urine Ketones (Negative) Urine Blood (Negative) Urine Nitrite (Negative) Ur Leukocyte Esterase (Negative) Urine RBC (0-5) /hpf Urine WBC (0-5) /hpf Urine Bacteria (None) /hpf Urine Mucus (None) /hpf Assessment and Plan Assessment: Acute sigmoid sigmoid colitis, diverticulitis with proctitis. With multiple entero-cutaneous and entero-vesical fistulas, including to the left lower abdominal wall. Severe sepsis with leukocytosis and hypotension, present on admission. Dehydration and hypovolemia. Acute anemia, unknown baseline, chronic microcytic Full-thickness sacral pressure ulcer, with no obvious osseous erosions. Metabolic encephalopathy, with possible elements of delirium Bilateral adrenal nodule, recommend follow-up CT in 3 months. Acute urinary tract infection/cystitis. possible Plan: Continue with IV fluid and monitor vitals Continue with antibiotic, Flagyl and add IV cefepime IV Protonix Keep n.p.o. Surgery team consult already contacted from the emergency room Replace monitor hemoglobin and transfuse for Hb less than 7 tart patient on IV Protonix. Cardiology team consult on check echocardiogram ID team consult Monitor and follow-up blood culture DVT prophylaxis: sc heparin, SCD GI prophylaxis: Protonix Prognosis guarded
[2023-12-05] MEDS: DEXTROSE 5%-0.9% NACL 1,000 ML IV SCH (09:48)
[2023-12-05 10:38] LABS: Glucose,Whole Blood 85 mg/dL (70-110)
[2023-12-05 11:11] LABS: HCT 26.1 % (37.2-46.3); HGB 7.6 g/dL (12.0-15.0); MCH 22.3 pg (27.0-32.0); MCHC 29.1 g/dL (32.0-37.0); MCV 76.5 FL (80.0-97.0); Mean Platelet Volume 8.9 FL (9.5-12.2); NRBC Per 100 WBC 0 X 10*3/uL (0.00-0.01); Platelet Count 691 X 10*3/uL (140-440); RBC 3.41 X 10*6/uL (4.10-5.20); RDW 23.3 % (11.5-14.5); WBC 27.63 X 10*3/uL (4.50-10.00)
--- NOTE | 2023-12-05 11:28 | CA ---
Transthoracic Echo Report Name: Michelle Roca Age: 73 Gender: F : 1950 Exam Date: 12/05/2023 09:22 Exam Location: [facility] Ht (in): 67 Wt (lb): 180 Ordering Physician: Carolyne Felipe MD Attending/Referring Phys: Matteo KELLOGG Channel Cementer Rosemary Willoughby RDCS Procedure CPT: Indications: abnormal ekg, chest pain Cardiac Hx: Technical Quality: Fair Contrast 1: Total Dose (mL): Contrast 2: Total Dose (mL): MEASUREMENTS (Male / Female) Normal Values 2D ECHO LV Diastolic Diameter PLAX 4.3 cm 4.2 - 5.9 / 3.9 - 5.3 cm LV Systolic Diameter PLAX 3.2 cm IVS Diastolic Thickness 1.1 cm 0.6 - 1.0 / 0.6 - 0.9 cm LVPW Diastolic Thickness 1.2 cm 0.6 - 1.0 / 0.6 - 0.9 cm LV Relative Wall Thickness 0.5 RV Internal Dim ED PLAX 3.3 cm LA Volume 85.0 cm??? 18 - 58 / 22 - 52 cm??? LA Volume Index 42.9 cm???/m??? 16 - 28 cm???/m??? M-MODE Aortic Root Diameter MM 2.2 cm LA Systolic Diameter MM 4.0 cm LA Ao Ratio MM 1.9 AV Cusp Separation MM 1.6 cm DOPPLER AV Peak Velocity 250.6 cm/s AV Peak Gradient 25.1 mmHg AV Mean Velocity 168.8 cm/s AV Mean Gradient 13.3 mmHg AV Velocity Time Integral 49.5 cm LVOT Peak Velocity 160.1 cm/s LVOT Peak Gradient 10.2 mmHg LVOT Velocity Time Integral 33.7 cm MV Area PHT 3.2 cm??? Mitral E Point Velocity 75.9 cm/s Mitral A Point Velocity 97.7 cm/s Mitral E to A Ratio 0.8 MV Deceleration Time 238.5 ms MV E' Velocity 10.3 cm/s Mitral E to MV E' Ratio 7.4 TR Peak Velocity 320.9 cm/s TR Peak Gradient 41.2 mmHg Right Ventricular Systolic Press 46.2 mmHg FINDINGS Left Ventricle Mildly increased left ventricular wall thickness. Left ventricular cavity size normal. Normal left ventricular systolic function with no obvious regional wall motion abnormalities. Left ventricular ejection fraction is estimated at 55-60 %. Right Ventricle Normal right ventricular size and function. Mild pulmonary hypertension. Right Atrium Mild right atrial dilatation. Left Atrium Severely increased left atrial volume. Mildly increased left atrial area. Interatrial septal aneurysm. Mitral Valve Structurally normal mitral valve. Mild mitral annular calcification. Mild-to- moderate mitral regurgitation. Aortic Valve Trileaflet aortic valve. No aortic valve stenosis or regurgitation. Tricuspid Valve Structurally normal tricuspid valve. [id number] tricuspid regurgitation. Pulmonic Valve Structurally normal pulmonic valve. Trace pulmonic regurgitation. Pericardium No pericardial effusion. Aorta Normal size aortic root and proximal ascending aorta. CONCLUSIONS Normal LV function Mild to moderate mitral regurgitation Aneurysmal interatrial septum Previewed by: Dr. Rd Chapin MD (Electronically Signed) Final Date: 05 December 2023 11:27
[2023-12-05 11:30] LABS: ALT 7 U/L (8-44); AST 14 U/L (13-35); Albumin 2.1 g/dL (3.8-4.9); Albumin/Globulin Ratio 0.88 Ratio (1.60-3.17); Alkaline Phosphatase 134 U/L (41-126); Bilirubin, Conjugated <0.20 mg/dL (0.20-0.40); Blood Urea Nitrogen 15.2 mg/dL (9.0-27.0); Carbon Dioxide 20.4 mmol/L (21.6-31.8); Chloride 111 mmol/L (96-109); Globulin 2.4 g/dL (1.6-3.3); Glucose 64 mg/dL (70-110); Magnesium 1.9 mg/dL (1.5-2.4); Potassium 2.9 mmol/L (3.5-5.5); Sodium 143 mmol/L (135-145); Total Bilirubin <0.2 mg/dL (0.3-1.2); Total Protein 4.5 g/dL (6.2-8.2)
--- NOTE | 2023-12-05 11:37 | P.CRDCN ---
History of Present Illness History of present illness: HISTORY OF PRESENT ILLNESS: This is a 73-year-old female with a past medical history significant for right below the knee amputation. Patient does not follow with a supply chain manager. We have been asked to see the patient in consultation for cardiac risk assessment. Patient examined at the bedside in the emergency room. Patient presented to the hospital with a chief complaint of an abdominal wound. 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 Patient is scheduled to undergo colectomy with colostomy with Dr. Felipe. Patient denies chest pain or pressure. She denies shortness of breath. Vital signs are stable. DIAGNOSTICS: - EKG reveals sinus mechanism with no signs of acute ischemia. - Laboratory data: WBC 23.7. Hemoglobin 7.9. Platelet count 735. Sodium 138. Potassium 3.2. BUN 16. Creatinine 0.71. Troponin negative x 1. - Current home cardiac medications include none. - Echocardiogram completed this admission revealed ejection fraction 55 to 60%, mild pulmonary hypertension, mild to moderate mitral regurgitation, and aneurysmal intraatrial septum REVIEW OF SYSTEMS: At the time of my exam: CONSTITUTIONAL: Denies fever or chills. HEENT: Denies blurred vision, vision changes, or eye pain. Denies hemoptysis CARDIOVASCULAR: Denies chest pain. Denies orthopnea. Denies PND. Denies palpitations RESPIRATORY: Denies shortness of breath. GASTROINTESTINAL: Denies abdominal pain. Denies nausea or vomiting. Reports wound to abdomen. HEMATOLOGIC: Denies bleeding disorders. GENITOURINARY: Denies any blood in urine. SKIN: Denies pruitis. Denies rash. PHYSICAL EXAM: VITAL SIGNS: Reviewed. GENERAL: Well-developed in no acute distress. HEENT: Head is normocephalic. Pupils are equal, round. Sclerae anicteric. Mucous membranes of the mouth are moist. Neck supple. No JVD or thyromegaly LUNGS: Respirations even and unlabored. Lungs essentially clear to auscultation bilaterally. HEART: Regular rate and rhythm. S1 and S2 heard. ABDOMEN: Soft. Nondistended. Nontender. Wound noted to abdomen with dressing present. EXTREMITIES: Normal range of motion. No clubbing or cyanosis. Peripheral pulses intact. No lower extremity edema NEUROLOGIC: Awake and alert. 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 Felipe There are no absolute contraindications for patient to proceed with surgery from a cardiac standpoint Nurse practitioner note has been reviewed by physician. Signing provider agrees with the documented findings, assessment, and plan of care documented by FOUNDER [employer] CEO as a scribe. Past Medical History Past Medical History: Unable to Obtain History of Any Multi-Drug Resistant Organisms: None Reported Additional Past Surgical History / Comment(s): R below the knee amputation Past Psychological History: No Psychological Hx Reported Medications and Allergies Home Medications Medication Instructions Recorded Confirmed Type No Known Home Medications 12/04/23 12/04/23 History Allergies Allergy/AdvReac Type Severity Reaction Status Date / Time latex Allergy Rash/Hives Verified 12/04/23 17:49 Physical Exam Vitals: Vital Signs Temp Pulse Resp BP Pulse Ox 12/05/23 09:17 85 18 97/46 97 12/05/23 07:00 87 18 102/51 97 12/05/23 06:24 92 18 101/52 95 12/05/23 05:00 82 18 99/50 98 12/05/23 04:00 84 18 98/42 96 12/05/23 02:00 79 18 91/40 98 12/05/23 01:00 82 18 81/36 98 12/04/23 23:30 81 16 84/54 97 12/04/23 23:08 79 18 89/39 98 12/04/23 22:25 81 17 86/38 97 12/04/23 22:20 79 22 73/40 97 12/04/23 22:00 79 16 91/41 97 12/04/23 21:18 85 16 86/58 100 12/04/23 20:52 80 14 94/43 94 L 12/04/23 19:19 96/43 12/04/23 18:48 81 18 87/42 97 12/04/23 13:40 86 21 119/63 12/04/23 13:35 98.6 F 86 18 119/63 96 12/04/23 13:30 89 15 129/51 Results 12/05/23 07:12 12/05/23 07:12 Cardiac Enzymes 12/04/23 12/04/23 Range/Units 13:44 13:44 AST 16 (14-36) U/L Troponin I <0.012 (0.000-0.034) ng/mL Coagulation 12/04/23 Range/Units 20:08 PT 13.8 H (10.0-12.5) sec APTT 31.8 H (22.0-30.0) sec CBC 12/04/23 12/04/23 Range/Units 13:44 20:08 WBC 23.4 H 23.7 H (3.8-10.6) k/uL RBC 3.27 L 3.46 L (3.80-5.40) m/uL Hgb 7.4 L 7.9 L (11.4-16.0) gm/dL Hct 24.6 L 26.4 L (34.0-46.0) % Plt Count 763 H 735 H (150-450) k/uL Comprehensive Metabolic Panel 12/04/23 12/04/23 Range/Units 13:44 20:08 Sodium 139 138 (137-145) mmol/L Potassium 2.9 L 3.2 L (3.5-5.1) mmol/L Chloride 107 110 H (98-107) mmol/L Carbon Dioxide 25 19 L (22-30) mmol/L BUN 16 16 (7-17) mg/dL Creatinine 0.77 0.71 (0.52-1.04) mg/dL Glucose 89 74 (74-99) mg/dL Calcium 7.6 L 7.3 L (8.4-10.2) mg/dL AST 16 (14-36) U/L ALT 7 (4-34) U/L Alkaline Phosphatase 169 H (38-126) U/L Total Protein 4.9 L (6.3-8.2) g/dL Albumin 2.0 L (3.5-5.0) g/dL Current Medications Generic Name Dose Route Start Last Admin Trade Name Freq PRN Reason Stop Dose Admin Acetaminophen 650 mg 12/04/23 18:04 Acetaminophen Tab 325 Mg Tab PO Q6HR PRN Mild Pain or Fever > 100.5 Heparin Sodium (Porcine) 5,000 unit 12/05/23 21:00 Heparin Sodium,Porcine 5,000 Unit/Ml 1 Ml Vial SQ Q12HR [facility] Metronidazole 500 mg/ IV 100 mls @ 100 mls/hr 12/04/23 19:00 12/05/23 04:39 Solution IVPB 100 mls/hr Q8H [facility] Administration Protocol Cefepime HCl 2 gm/ Sodium 100 mls @ 25 mls/hr 12/05/23 00:00 12/05/23 09:16 Chloride IVPB 25 mls/hr Q8HR [facility] Administration Protocol Dextrose/Sodium Chloride 1,000 mls @ 130 mls/hr 12/05/23 09:45 12/05/23 09:48 Dextrose 5%-Ns Iv Soln IV 130 mls/hr .[id number] [facility] Administration Miscellaneous Information 1 each 12/04/23 19:17 Potassium Replacement Protocol 1 Each Misc MISCELLANE DAILY PRN Per Protocol Protocol Miscellaneous Information 1 each 12/04/23 19:17 Magnesium Replacement Protocol 1 Each Misc MISCELLANE DAILY PRN Per Protocol Protocol Miscellaneous Information 1 each 12/04/23 18:55 Potassium Replacement Protocol 1 Each Misc MISCELLANE DAILY PRN Per Protocol Protocol Morphine Sulfate 4 mg 12/04/23 18:04 Morphine Sulfate 4 Mg/Ml Syringe IV Q4HR PRN Severe Pain (Scale 7 to 10) Naloxone HCl 0.2 mg 12/04/23 18:04 Naloxone 0.4 Mg/Ml 1 Ml Vial IV Q2M PRN Opioid Reversal Pantoprazole Sodium 40 mg 12/05/23 09:00 12/05/23 09:14 Pantoprazole 40 Mg/10 Ml Vial IVP 40 mg DAILY [facility] Administration 12/04/23 20:08 12/04/23 20:08
[2023-12-05 12:02] LABS: Acanthocytes 2+; Basophils # (A) 0.04 X 10*3/uL (0.00-0.10); Basophils % (A) 0.1 %; Eosinophils # (A) 0.01 X 10*3/uL (0.04-0.35); Eosinophils % (A) 0 %; Lymphocytes % (A) 3.3 %; Monocytes # (A) 0.71 X 10*3/uL (0.20-1.00); Monocytes % (A) 2.6 %; Neutrophils # (A) 25.75 X 10*3/uL (1.80-7.70); Neutrophils % (A) 93.2 %
[2023-12-05 15:02] LABS: Glucose,Whole Blood 88 mg/dL (70-110)
--- NOTE | 2023-12-05 15:32 | P.PN ---
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 Patient has drainage from skin fistula. Ostomy bag over fistula. Patient denies any nausea or vomiting. Patient reports she is very thirsty. Afebrile. Patient evaluated by cardiology for cardiac risk assessment. They reported there is no absolute contraindication for surgery. Afebrile. Hypotension improving with fluids. WBC is up from 23-27.63 hemoglobin 7.6 platelets 691 potassium 2.9 creatinine 0.8 glucose 64 magnesium 1.9 stool for occult blood positive. PHYSICAL EXAM: VITAL SIGNS: Reviewed GENERAL: Well-developed in no acute distress. HEENT: No sclera icterus. Extraocular movements grossly intact. Moist buccal mucosa. Head is atraumatic, normocephalic. Hears conversational speech. No nasal drainage. NECK: Supple without lymphadenopathy. CHEST: Non-labored respirations and equal bilateral excursions. CARDIOVASCULAR: Palpable 2+ radial pulses. ABDOMEN: Soft. Nondistended. Tenderness palpation left lower quadrant. Skin fistula with significant amount of drainage noted MUSCULOSKELETAL: No clubbing or cyanosis. NEUROLOGIC: No focal or lateralizing signs. Cranial nerves II through XII grossly intact. PSYCH: Appropriate affect. Alert and oriented to person, place and time. SKIN: Well perfused. Good skin turgor. ASSESSMENT: 1. 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 Sepsis 3. Hypokalemia 4. Anemia PLAN: -Surgery canceled for today. Patient is hypokalemic. Plan for open laparotomy with ostomy tomorrow 12/06/[address] Felipe -Continue to correct hypokalemia -Continue antibiotics -Repeat labs in a.m. -Start clear liquid diet -N.p.o. after midnight -Continue IV fluids -Continue pain management Physician Boat Joiner note has been reviewed by physician. Signing provider agrees with the documented findings, assessment, and plan of care. Objective - Vital Signs Vital signs: Vital Signs Temp 97.5 F L 12/05/23 14:51 Pulse 81 12/05/23 14:51 Resp 17 12/05/23 14:51 BP 91/50 12/05/23 14:51 Pulse Ox 98 12/05/23 14:51 FiO2 Intake & Output 12/04/23 12/05/23 12/05/23 18:59 06:59 18:59 Weight 81.647 kg 81.647 kg - Labs CBC & Chem 7: 12/05/23 07:12 12/05/23 07:12 Labs: Abnormal Lab Results - Last 24 Hours (Table) 12/04/23 12/04/23 12/04/23 Range/Units 13:44 13:44 13:44 WBC 23.4 H (3.8-10.6) k/uL RBC 3.27 L (3.80-5.40) m/uL Hgb 7.4 L (11.4-16.0) gm/dL Hct 24.6 L (34.0-46.0) % MCV 75.3 L (80.0-100.0) fL MCH 22.7 L (25.0-35.0) pg MCHC 30.1 L (31.0-37.0) g/dL RDW 20.5 H (11.5-15.5) % Plt Count 763 H (150-450) k/uL MPV (9.5-12.2) FL Immature Gran # (0.00-0.04) X 10*3/uL Neutrophils # 22.0 H (1.3-7.7) k/uL Lymphocytes # 0.9 L (1.0-4.8) k/uL Eosinophils # (0.04-0.35) X 10*3/uL Acanthocytes (Spur) ESR (0-30) mm/Hr PT (10.0-12.5) sec INR (<1.2) APTT (22.0-30.0) sec Potassium 2.9 L (3.5-5.1) mmol/L Chloride (98-107) mmol/L Carbon Dioxide (22-30) mmol/L Glucose (70-110) mg/dL POC Glucose (mg/dL) (70-110) mg/dL Calcium 7.6 L (8.4-10.2) mg/dL Total Bilirubin (0.3-1.2) mg/dL ALT (8-44) U/L Alkaline Phosphatase 169 H (38-126) U/L C-Reactive Protein (<1.0) mg/dL Total Protein 4.9 L (6.3-8.2) g/dL Albumin 2.0 L (3.5-5.0) g/dL Albumin/Globulin Ratio (1.60-3.17) Ratio Lipase <10 L (23-300) U/L Urine Appearance Cloudy H (Clear) Urine Protein 1+ H (Negative) Urine Ketones 1+ H (Negative) Urine Blood Large H (Negative) Urine Nitrite Positive H (Negative) Ur Leukocyte Esterase Large H (Negative) Urine RBC 8 H (0-5) /hpf Urine WBC 13 H (0-5) /hpf Urine Bacteria Many H (None) /hpf Urine Mucus Moderate H (None) /hpf Stool Occult Blood (Negative) 12/04/23 12/04/23 12/04/23 Range/Units 19:15 20:08 20:08 WBC 23.7 H (3.8-10.6) k/uL RBC 3.46 L (3.80-5.40) m/uL Hgb 7.9 L (11.4-16.0) gm/dL Hct 26.4 L (34.0-46.0) % MCV 76.4 L (80.0-100.0) fL MCH 22.9 L (25.0-35.0) pg MCHC 30.0 L (31.0-37.0) g/dL RDW 20.5 H (11.5-15.5) % Plt Count 735 H (150-450) k/uL MPV (9.5-12.2) FL Immature Gran # (0.00-0.04) X 10*3/uL Neutrophils # 22.1 H (1.3-7.7) k/uL Lymphocytes # (1.0-4.8) k/uL Eosinophils # (0.04-0.35) X 10*3/uL Acanthocytes (Spur) ESR 75 H (0-30) mm/Hr PT 13.8 H (10.0-12.5) sec INR 1.3 H (<1.2) APTT 31.8 H (22.0-30.0) sec Potassium (3.5-5.1) mmol/L Chloride (98-107) mmol/L Carbon Dioxide (22-30) mmol/L Glucose (70-110) mg/dL POC Glucose (mg/dL) (70-110) mg/dL Calcium (8.4-10.2) mg/dL Total Bilirubin (0.3-1.2) mg/dL ALT (8-44) U/L Alkaline Phosphatase (38-126) U/L C-Reactive Protein (<1.0) mg/dL Total Protein (6.3-8.2) g/dL Albumin (3.5-5.0) g/dL Albumin/Globulin Ratio (1.60-3.17) Ratio Lipase (23-300) U/L Urine Appearance (Clear) Urine Protein (Negative) Urine Ketones (Negative) Urine Blood (Negative) Urine Nitrite (Negative) Ur Leukocyte Esterase (Negative) Urine RBC (0-5) /hpf Urine WBC (0-5) /hpf Urine Bacteria (None) /hpf Urine Mucus (None) /hpf Stool Occult Blood Positive H (Negative) 12/04/23 12/05/23 12/05/23 Range/Units 20:08 07:12 07:12 WBC 27.63 H (3.8-10.6) k/uL RBC 3.41 L (3.80-5.40) m/uL Hgb 7.6 L (11.4-16.0) gm/dL Hct 26.1 L (34.0-46.0) % MCV 76.5 L (80.0-100.0) fL MCH 22.3 L (25.0-35.0) pg MCHC 29.1 L (31.0-37.0) g/dL RDW 23.3 H (11.5-15.5) % Plt Count 691 H (150-450) k/uL MPV 8.9 L (9.5-12.2) FL Immature Gran # 0.22 H (0.00-0.04) X 10*3/uL Neutrophils # 25.75 H (1.3-7.7) k/uL Lymphocytes # (1.0-4.8) k/uL Eosinophils # 0.01 L (0.04-0.35) X 10*3/uL Acanthocytes (Spur) 2+ A ESR (0-30) mm/Hr PT (10.0-12.5) sec INR (<1.2) APTT (22.0-30.0) sec Potassium 3.2 L 2.9 L (3.5-5.1) mmol/L Chloride 110 H 111 H (98-107) mmol/L Carbon Dioxide 19 L 20.4 L (22-30) mmol/L Glucose 64 L (70-110) mg/dL POC Glucose (mg/dL) (70-110) mg/dL Calcium 7.3 L 7.0 L (8.4-10.2) mg/dL Total Bilirubin <0.2 L (0.3-1.2) mg/dL ALT 7 L (8-44) U/L Alkaline Phosphatase 134 H (38-126) U/L C-Reactive Protein 25.0 H (<1.0) mg/dL Total Protein 4.5 L (6.3-8.2) g/dL Albumin 2.1 L (3.5-5.0) g/dL Albumin/Globulin Ratio 0.88 L (1.60-3.17) Ratio Lipase (23-300) U/L Urine Appearance (Clear) Urine Protein (Negative) Urine Ketones (Negative) Urine Blood (Negative) Urine Nitrite (Negative) Ur Leukocyte Esterase (Negative) Urine RBC (0-5) /hpf Urine WBC (0-5) /hpf Urine Bacteria (None) /hpf Urine Mucus (None) /hpf Stool Occult Blood (Negative) 12/05/23 Range/Units 09:20 WBC (3.8-10.6) k/uL RBC (3.80-5.40) m/uL Hgb (11.4-16.0) gm/dL Hct (34.0-46.0) % MCV (80.0-100.0) fL MCH (25.0-35.0) pg MCHC (31.0-37.0) g/dL RDW (11.5-15.5) % Plt Count (150-450) k/uL MPV (9.5-12.2) FL Immature Gran # (0.00-0.04) X 10*3/uL Neutrophils # (1.3-7.7) k/uL Lymphocytes # (1.0-4.8) k/uL Eosinophils # (0.04-0.35) X 10*3/uL Acanthocytes (Spur) ESR (0-30) mm/Hr PT (10.0-12.5) sec INR (<1.2) APTT (22.0-30.0) sec Potassium (3.5-5.1) mmol/L Chloride (98-107) mmol/L Carbon Dioxide (22-30) mmol/L Glucose (70-110) mg/dL POC Glucose (mg/dL) 65 L (70-110) mg/dL Calcium (8.4-10.2) mg/dL Total Bilirubin (0.3-1.2) mg/dL ALT (8-44) U/L Alkaline Phosphatase (38-126) U/L C-Reactive Protein (<1.0) mg/dL Total Protein (6.3-8.2) g/dL Albumin (3.5-5.0) g/dL Albumin/Globulin Ratio (1.60-3.17) Ratio Lipase (23-300) U/L Urine Appearance (Clear) Urine Protein (Negative) Urine Ketones (Negative) Urine Blood (Negative) Urine Nitrite (Negative) Ur Leukocyte Esterase (Negative) Urine RBC (0-5) /hpf Urine WBC (0-5) /hpf Urine Bacteria (None) /hpf Urine Mucus (None) /hpf Stool Occult Blood (Negative)
[2023-12-05] MEDS ORDERED: LIDOCAINE 1% INJ 10MG/ML (20 ML MDV) ONE (15:57)
[2023-12-05] MEDS: LIDOCAINE 1% INJ 10MG/ML (20 ML MDV) SQ ONE (16:15)
[2023-12-05 16:20] LABS: % Iron Saturation 6.73 (12.00-45.00)
--- NOTE | 2023-12-05 16:34 | P.OP ---
Date of Procedure: 12/05/23 Preoperative Diagnosis: Need for long-term IV antibiotic therapy. Postoperative Diagnosis: Same. Procedure(s) Performed: Insertion of a PICC line with ultrasound and fluoroscopic guidance. Anesthesia: local (1% Xylocaine.) Surgeon: Ja Dailey Estimated Blood Loss (ml): 5 IV fluids (ml): 0 Urine output (ml): 0 Pathology: none sent Condition: stable Disposition: no change Indications for Procedure: Patient is a 71-year-old female who has a lower extremity wound who is in need of long-term intravenously administered antibiotic therapy as an outpatient. Patient is thus offered a PICC line for outpatient IV antibiotic therapy. Description of Procedure: Patient was brought to the cardiac catheterization laboratory. The left upper extremity was sterilely prepped and draped in usual manner. Utilizing ultrasound the basilic vein was identified. 1% Xylocaine was utilized for local anesthesia tissues overlying the basilic vein. Through this anesthetized area with the aid of ultrasound a micropuncture needle was utilized to cannulate the vein. Once cannulated soft tipped guidewire was advanced into the vein. The needle was withdrawn and a micropuncture sheath and dilator were advanced over the guidewire. Guidewire was withdrawn as well as the dilator and the PICC guidewires were advanced into the central venous system and it measured 45 cm to the atrial level. The catheter was then cut to the 45 cm length and advanced over the guidewire. The sheath was peeled away and the guidewire was removed. Fluoroscopy demonstrated the catheter to be in good position. Blood was easily aspirated through the catheter and was then flushed with heparinized saline solution. The catheter was secured to the skin with nylon suture. Appropriate dressings were applied. Patient tolerated the procedure well and was returned to her room in satisfactory and stable condition. Total fluoroscopy time: 6 seconds.
[2023-12-05] MEDS: POTASSIUM CHLORIDE ER 20 MEQ TAB.ER PO SCH (16:40)
[2023-12-05 17:06] LABS: Glucose,Whole Blood 91 mg/dL (70-110)
[2023-12-05] MEDS: HEPARIN SODIUM,PORCINE 5,000 UNIT/ML 1 ML VIAL SQ SCH (20:39)
[2023-12-05] MEDS: metroNIDAZOLE-NS PMX 500 MG in SALINE 1 100ML.BAG IVPB SCH (20:43)
--- NOTE | 2023-12-05 22:36 | P.CONS ---
History of Present Illness - Reason for Consult Consult date: 12/05/23 Sacral pressure ulcer and colitis Requesting physician: Tong E Sheet - Chief Complaint Painful ulcer to the back and drainage from the left abdomen x days - History of Present Illness Patient is a 73-year-old female who was brought into the ER at [facility] for the patient complaining of generalized weakness has been complaining of pain to the sacral area and a draining sinus from the left lower abdominal patient symptom has been getting worse for couple of weeks mostly complaining of pain to the sacral area describing it to be sharp moderate intensity without any radiation and the patient also complaining of a malodorous drainage from the left lower abdominal area that initially started with a blood and now fecal material is coming out patient denies high-grade fever or any chills with this, the patient has been evaluated on presentation to the hospital patient was afebrile and no fever has been recorded subsequently patient was not tachycardic or hypotensive no significant hypoxemia documented patient did have a white count of 27.63 creatinine has been normal liver isms are normal CRP elevated at 25 urine has been positive blood cultures obtained which are currently pending patient did have a CT of abdominal pelvis moderately thickened mid to distal sigmoid colon and rectum and there was a fistulous communication to the dome of the bladder as well as to the left lateral wall of the mid sigmoid colon to the left inguinal area patient was started on cefepime and Scott infectious disease was consulted for further management of antibiotic therapy Review of Systems Positive point and negatives has been mentioned in the HPI, complete review of systems was performed and all other systems are negative Past Medical History Past Medical History: Unable to Obtain History of Any Multi-Drug Resistant Organisms: None Reported Additional Past Surgical History / Comment(s): R below the knee amputation Past Psychological History: No Psychological Hx Reported - Past Family History Father Additional Family Medical History / Comment(s): Colon Cancer Medications and Allergies Home Medications Medication Instructions Recorded Confirmed Type Acetaminophen Tab [Tylenol] 650 mg PO Q6HR PRN tab 01/01/24 Rx Amiodarone [Cordarone] 200 mg PO DAILY tab 01/01/24 Rx Ampicillin-Sulbactam [Unasyn 3 gm 3 gm IVPB Q6HR 21 Days #84 each 01/01/24 Rx vial] Ferrous Sulfate [Feosol] 325 mg PO DAILY #30 tab 01/01/24 Rx Folic Acid 1 mg PO DAILY@1200 tab 01/01/24 Rx Furosemide [Lasix] 40 mg PO DAILY #30 tablet 01/01/24 Rx HYDROcodone/APAP 5-325MG [Lucan 1 each PO Q6HR PRN #4 tab 01/01/24 Rx 5-325] Heparin Sodium,Porcine (1 ml) 5,000 unit SQ Q12HR each 01/01/24 Rx [Heparin Sodium] Multivitamins, Thera [Multivitamin 1 each PO DAILY@1200 tab 01/01/24 Rx (formulary)] Nystatin 100,000 Unit/gm Powd 1 applic TOPICAL BID each 01/01/24 Rx [Mycostatin Powder] Thiamine [Vitamin B-1] 100 mg PO DAILY@1200 tab 01/01/24 Rx guaiFENesin SYRUP 100MG/5ML 400 mg PO TID PRN ml 01/01/24 Rx [Robitussin] Allergies Allergy/AdvReac Type Severity Reaction Status Date / Time latex Allergy Rash/Hives Verified 12/26/23 14:03 Physical Exam Vitals: Vital Signs Temp Pulse Resp BP Pulse Ox 12/05/23 09:17 85 18 97/46 97 12/05/23 07:00 87 18 102/51 97 12/05/23 06:24 92 18 101/52 95 12/05/23 05:00 82 18 99/50 98 12/05/23 04:00 84 18 98/42 96 12/05/23 02:00 79 18 91/40 98 12/05/23 01:00 82 18 81/36 98 12/04/23 23:30 81 16 84/54 97 12/04/23 23:08 79 18 89/39 98 12/04/23 22:25 81 17 86/38 97 12/04/23 22:20 79 22 73/40 97 12/04/23 22:00 79 16 91/41 97 12/04/23 21:18 85 16 86/58 100 12/04/23 20:52 80 14 94/43 94 L 12/04/23 19:19 96/43 12/04/23 18:48 81 18 87/42 97 12/04/23 13:40 86 21 119/63 12/04/23 13:35 98.6 F 86 18 119/63 96 12/04/23 13:30 89 15 129/51 GENERAL DESCRIPTION: Elderly female lying in bed, no distress. No tachypnea or accessory muscle of respiration use. HEENT: Shows Pallor , no scleral icterus. Oral mucous membrane is dry. NECK: Trachea central, no thyromegaly. LUNGS: Unlabored breathing. Clear to auscultation anteriorly. No wheeze or crackle. HEART: S1, S2, regular rate and rhythm. No loud murmur ABDOMEN: Soft, did have a draining sinus to the left lower abdominal area with some tenderness EXTREMITIES: No edema of feet. SKIN: Patient did have a stage III sacral ulcer with some slough tissue but no redness or foul-smelling drainage NEUROLOGICAL: The patient is awake, alert,mood and affect normal. Results CBC & Chem 7: 12/31/23 06:07 12/31/23 06:07 Labs: Abnormal Lab Results - Last 24 Hours (Table) 12/04/23 12/04/23 12/04/23 Range/Units 13:44 13:44 13:44 WBC 23.4 H (3.8-10.6) k/uL RBC 3.27 L (3.80-5.40) m/uL Hgb 7.4 L (11.4-16.0) gm/dL Hct 24.6 L (34.0-46.0) % MCV 75.3 L (80.0-100.0) fL MCH 22.7 L (25.0-35.0) pg MCHC 30.1 L (31.0-37.0) g/dL RDW 20.5 H (11.5-15.5) % Plt Count 763 H (150-450) k/uL Neutrophils # 22.0 H (1.3-7.7) k/uL Lymphocytes # 0.9 L (1.0-4.8) k/uL ESR (0-30) mm/Hr PT (10.0-12.5) sec INR (<1.2) APTT (22.0-30.0) sec Potassium 2.9 L (3.5-5.1) mmol/L Chloride (98-107) mmol/L Carbon Dioxide (22-30) mmol/L POC Glucose (mg/dL) (70-110) mg/dL Calcium 7.6 L (8.4-10.2) mg/dL Alkaline Phosphatase 169 H (38-126) U/L C-Reactive Protein (<1.0) mg/dL Total Protein 4.9 L (6.3-8.2) g/dL Albumin 2.0 L (3.5-5.0) g/dL Lipase <10 L (23-300) U/L Urine Appearance Cloudy H (Clear) Urine Protein 1+ H (Negative) Urine Ketones 1+ H (Negative) Urine Blood Large H (Negative) Urine Nitrite Positive H (Negative) Ur Leukocyte Esterase Large H (Negative) Urine RBC 8 H (0-5) /hpf Urine WBC 13 H (0-5) /hpf Urine Bacteria Many H (None) /hpf Urine Mucus Moderate H (None) /hpf 12/04/23 12/04/23 12/04/23 Range/Units 20:08 20:08 20:08 WBC 23.7 H (3.8-10.6) k/uL RBC 3.46 L (3.80-5.40) m/uL Hgb 7.9 L (11.4-16.0) gm/dL Hct 26.4 L (34.0-46.0) % MCV 76.4 L (80.0-100.0) fL MCH 22.9 L (25.0-35.0) pg MCHC 30.0 L (31.0-37.0) g/dL RDW 20.5 H (11.5-15.5) % Plt Count 735 H (150-450) k/uL Neutrophils # 22.1 H (1.3-7.7) k/uL Lymphocytes # (1.0-4.8) k/uL ESR 75 H (0-30) mm/Hr PT 13.8 H (10.0-12.5) sec INR 1.3 H (<1.2) APTT 31.8 H (22.0-30.0) sec Potassium 3.2 L (3.5-5.1) mmol/L Chloride 110 H (98-107) mmol/L Carbon Dioxide 19 L (22-30) mmol/L POC Glucose (mg/dL) (70-110) mg/dL Calcium 7.3 L (8.4-10.2) mg/dL Alkaline Phosphatase (38-126) U/L C-Reactive Protein 25.0 H (<1.0) mg/dL Total Protein (6.3-8.2) g/dL Albumin (3.5-5.0) g/dL Lipase (23-300) U/L Urine Appearance (Clear) Urine Protein (Negative) Urine Ketones (Negative) Urine Blood (Negative) Urine Nitrite (Negative) Ur Leukocyte Esterase (Negative) Urine RBC (0-5) /hpf Urine WBC (0-5) /hpf Urine Bacteria (None) /hpf Urine Mucus (None) /hpf 12/05/23 Range/Units 09:20 WBC (3.8-10.6) k/uL RBC (3.80-5.40) m/uL Hgb (11.4-16.0) gm/dL Hct (34.0-46.0) % MCV (80.0-100.0) fL MCH (25.0-35.0) pg MCHC (31.0-37.0) g/dL RDW (11.5-15.5) % Plt Count (150-450) k/uL Neutrophils # (1.3-7.7) k/uL Lymphocytes # (1.0-4.8) k/uL ESR (0-30) mm/Hr PT (10.0-12.5) sec INR (<1.2) APTT (22.0-30.0) sec Potassium (3.5-5.1) mmol/L Chloride (98-107) mmol/L Carbon Dioxide (22-30) mmol/L POC Glucose (mg/dL) 65 L (70-110) mg/dL Calcium (8.4-10.2) mg/dL Alkaline Phosphatase (38-126) U/L C-Reactive Protein (<1.0) mg/dL Total Protein (6.3-8.2) g/dL Albumin (3.5-5.0) g/dL Lipase (23-300) U/L Urine Appearance (Clear) Urine Protein (Negative) Urine Ketones (Negative) Urine Blood (Negative) Urine Nitrite (Negative) Ur Leukocyte Esterase (Negative) Urine RBC (0-5) /hpf Urine WBC (0-5) /hpf Urine Bacteria (None) /hpf Urine Mucus (None) /hpf Assessment and Plan (1) Riva-enteric fistula Status: Acute Code(s): K63.2 - FISTULA OF INTESTINE SNOMED Code(s): 848856855 (2) Diverticulitis Status: Acute Code(s): K57.92 - DVTRCLI OF INTEST, PART UNSP, W/O PERF OR ABSCESS W/O BLEED SNOMED Code(s): 431761901 (3) Leukocytosis Status: Acute Code(s): D72.829 - ELEVATED WHITE BLOOD CELL COUNT, UNSPECIFIED SNOMED Code(s): 170795222 Plan: 1patient with complicated diverticulitis with evidence of fistulous communication to the skin left lower quadrant area and concern for possible extension to the bladder, will need to cover for the polymicrobial jessie associated with such condition including enteric gram-negative both aerobes and anaerobes 2-patient also have a stage III sacral pressure ulcer but no significant s urrounding cellulitis 3-patient will need extensive surgery and deep culture at the time of surgical procedure 4-cefepime and Flagyl should provide adequate antibiotic coverage at this point and will be continued We will follow on clinical condition and cultures to further adjust medication if needed Thank you for this consultation we will follow the patient along with you Dictation was produced using [employer] dictation software. please excuse any grammatical, word or spelling errors. Time with Patient: Greater than 30
[2023-12-06 02:45] LABS: Glucose,Whole Blood 119 mg/dL (70-110)
[2023-12-06 06:52] LABS: Anisocytosis Moderate; Basophils % (A) 0 %; Eosinophils % (A) 0 %; HCT 26.6 % (34.0-46.0); HGB 7.9 gm/dL (11.4-16.0); Hypochromasia Marked; Lymphocytes % (A) 4 %; MCH 23.2 pg (25.0-35.0); MCHC 29.6 g/dL (31.0-37.0); MCV 78.5 fL (80.0-100.0); Mean Platelet Volume 7.3; Microcytosis Slight; Monocytes # (A) 0.9 k/uL (0-1.0); Monocytes % (A) 4 %; Neutrophils # (A) 20.8 k/uL (1.3-7.7); Neutrophils % (A) 91 %; Platelet Count 699 k/uL (150-450); RDW 20.7 % (11.5-15.5); WBC 22.8 k/uL (3.8-10.6)
--- NOTE | 2023-12-06 08:45 | IR ---
EXAMINATION TYPE: IR cvc insert >=5 years Intraoperative/procedural fluoroscopic services were provid ed. CLINICAL INDICATION:Female, 73 years old with history of ABX, 45cm, left basilic vein, 0.1min fluoro, 0.5104Vanr1; , [facility] Total fluoroscopy time is 0.1 min. DAP: 0.0793 Gycm2 Please see the operative/procedural note for further details.
[2023-12-06] MEDS: SODIUM FERRIC GLUCONAT-SUCROSE 125 MG in SODIUM CHLORIDE 0.9% 100 ML IVPB ONE (09:10)
[2023-12-06 09:14] LABS: Blood Urea Nitrogen 17.5 mg/dL (9.0-27.0); Calcium 7.3 mg/dL (8.7-10.3); Carbon Dioxide 19.1 mmol/L (21.6-31.8); Chloride 113 mmol/L (96-109); Glucose 116 mg/dL (70-110); Potassium 3.4 mmol/L (3.5-5.5); Sodium 143 mmol/L (135-145)
[2023-12-06] MEDS: MIDODRINE 5 MG TAB PO SCH (10:05)
[2023-12-06] MEDS: SODIUM CHLORIDE 0.9% 500 ML 500 ML IV ONE (10:16)
--- NOTE | 2023-12-06 10:20 | P.CONS ---
History of Present Illness - Reason for Consult Consult date: 12/06/23 wound care - History of Present Illness This is a 73-year-old patient with past medical history significant for right below the knee amputation. Patient is being seen for unstageable pressure ulcer to the left buttocks. Ulceration has significant amount of eschar in place with tunneling noted at 3 cm. Patient does not know how long the ulceration has been there. She is a poor historian. Review Of Systems: Constitutional: No fever, no chills, no night sweats. No weight change. No weakness, fatigue or lethargy. No daytime sleepiness. Integumentary:reports wounds, no lesions. No rash or pruritus. No unusual br uising. No change in hair or nails. Physical exam: General Appearance: Alert, cooperative, no distress, appears stated age. Skin: See HPI all other Skin color, texture, tugor normal, no rashes or lesions. Neurologic: Alert oriented x3 Assessment: 1. Unstageable pressure ulcer left buttocks Plan: 1. Apply honey gel and bordered foam to the site. Patient would benefit from debridement to remove eschar and possible negative pressure wound VAC placement. Prognosis is guarded. Thank you for the consultation any questions please contact the wound care center DNP note has been reviewed and discussed with Dr. Hines and the impression and plan of care has been directed as dictated. Past Medical History Past Medical History: Unable to Obtain Additional Past Medical History / Comment(s): Sepsis History of Any Multi-Drug Resistant Organisms: None Reported Additional Past Surgical History / Comment(s): R below the knee amputation Past Psychological History: No Psychological Hx Reported - Past Family History Father Additional Family Medical History / Comment(s): Colon Cancer Medications and Allergies Home Medications Medication Instructions Recorded Confirmed Type No Known Home Medications 12/04/23 12/04/23 History Allergies Allergy/AdvReac Type Severity Reaction Status Date / Time latex Allergy Rash/Hives Verified 12/04/23 17:49 Physical Exam Vitals: Vital Signs Temp Pulse Pulse Resp BP BP Pulse Ox 12/06/23 09:55 97.7 F 78 20 68/32 95 12/06/23 09:18 81/40 12/06/23 06:55 97.6 F 80 18 96/54 91 L 12/06/23 02:00 98.2 F 82 87/55 96 12/05/23 20:00 98.2 F 83 88/50 98 12/05/23 14:51 97.5 F L 81 17 91/50 98 12/05/23 13:40 78 18 111/51 98 12/05/23 11:00 85 18 104/81 98 Intake and Output 12/05/23 12/06/23 12/06/23 22:59 06:59 14:59 Intake Total 1340 Output Total 800 Balance -800 1340 Intake: Intake, IV Titration 1340 Amount Cefepime 2 gm In Sodium 100 Chloride 0.9% 100 ml @ 25 mls/hr IVPB Q8HR [facility] Rx# :[id number] Dextrose 5%-0.9% NaCl 1, 1040 000 ml @ 130 mls/hr IV . Q7H42M [facility] Rx#:[id number] metroNIDAZOLE-NS PMX 500 200 mg In Saline 1 100ml.bag @ 100 mls/hr IVPB Q8H [facility] Rx#:[id number] Output: Urine 800 Other: Voiding Method Indwelling Catheter # Bowel Movements 1 Results CBC & Chem 7: 12/06/23 06:05 12/06/23 06:05 Labs: Abnormal Lab Results - Last 24 Hours (Table) 12/04/23 12/05/23 12/05/23 Range/Units 19:15 07:12 07:12 WBC 27.63 H (4.50-10.00) X 10*3/uL RBC 3.41 L (4.10-5.20) X 10*6/uL Hgb 7.6 L (12.0-15.0) g/dL Hct 26.1 L (37.2-46.3) % MCV 76.5 L (80.0-97.0) FL MCH 22.3 L (27.0-32.0) pg MCHC 29.1 L (32.0-37.0) g/dL RDW 23.3 H (11.5-14.5) % Plt Count 691 H (140-440) X 10*3/uL MPV 8.9 L (9.5-12.2) FL Immature Gran # 0.22 H (0.00-0.04) X 10*3/uL Neutrophils # 25.75 H (1.80-7.70) X 10*3/uL Eosinophils # 0.01 L (0.04-0.35) X 10*3/uL Acanthocytes (Spur) 2+ A Potassium 2.9 L (3.5-5.5) mmol/L Chloride 111 H (96-109) mmol/L Carbon Dioxide 20.4 L (21.6-31.8) mmol/L Glucose 64 L (70-110) mg/dL POC Glucose (mg/dL) (70-110) mg/dL Calcium 7.0 L (8.7-10.3) mg/dL Iron (50-170) UG/DL TIBC (228-460) UG/DL % Saturation (12.00-45.00) Transferrin (204.0-354.0) mg/dL Total Bilirubin <0.2 L (0.3-1.2) mg/dL ALT 7 L (8-44) U/L Alkaline Phosphatase 134 H (41-126) U/L Total Protein 4.5 L (6.2-8.2) g/dL Albumin 2.1 L (3.8-4.9) g/dL Albumin/Globulin Ratio 0.88 L (1.60-3.17) Ratio Stool Occult Blood Positive H (Negative) 12/05/23 12/06/23 12/06/23 Range/Units 09:52 02:43 06:05 WBC 22.8 H (4.50-10.00) X 10*3/uL RBC 3.40 L (4.10-5.20) X 10*6/uL Hgb 7.9 L (12.0-15.0) g/dL Hct 26.6 L (37.2-46.3) % MCV 78.5 L (80.0-97.0) FL MCH 23.2 L (27.0-32.0) pg MCHC 29.6 L (32.0-37.0) g/dL RDW 20.7 H (11.5-14.5) % Plt Count 699 H (140-440) X 10*3/uL MPV (9.5-12.2) FL Immature Gran # (0.00-0.04) X 10*3/uL Neutrophils # 20.8 H (1.80-7.70) X 10*3/uL Eosinophils # (0.04-0.35) X 10*3/uL Acanthocytes (Spur) Potassium (3.5-5.5) mmol/L Chloride (96-109) mmol/L Carbon Dioxide (21.6-31.8) mmol/L Glucose (70-110) mg/dL POC Glucose (mg/dL) 119 H (70-110) mg/dL Calcium (8.7-10.3) mg/dL Iron 7 L (50-170) UG/DL TIBC 104 L (228-460) UG/DL % Saturation 6.73 L (12.00-45.00) Transferrin 74.4 L (204.0-354.0) mg/dL Total Bilirubin (0.3-1.2) mg/dL ALT (8-44) U/L Alkaline Phosphatase (41-126) U/L Total Protein (6.2-8.2) g/dL Albumin (3.8-4.9) g/dL Albumin/Globulin Ratio (1.60-3.17) Ratio Stool Occult Blood (Negative) 12/06/23 Range/Units 06:05 WBC (4.50-10.00) X 10*3/uL RBC (4.10-5.20) X 10*6/uL Hgb (12.0-15.0) g/dL Hct (37.2-46.3) % MCV (80.0-97.0) FL MCH (27.0-32.0) pg MCHC (32.0-37.0) g/dL RDW (11.5-14.5) % Plt Count (140-440) X 10*3/uL MPV (9.5-12.2) FL Immature Gran # (0.00-0.04) X 10*3/uL Neutrophils # (1.80-7.70) X 10*3/uL Eosinophils # (0.04-0.35) X 10*3/uL Acanthocytes (Spur) Potassium 3.4 L (3.5-5.5) mmol/L Chloride 113 H (96-109) mmol/L Carbon Dioxide 19.1 L (21.6-31.8) mmol/L Glucose 116 H (70-110) mg/dL POC Glucose (mg/dL) (70-110) mg/dL Calcium 7.3 L (8.7-10.3) mg/dL Iron (50-170) UG/DL TIBC (228-460) UG/DL % Saturation (12.00-45.00) Transferrin (204.0-354.0) mg/dL Total Bilirubin (0.3-1.2) mg/dL ALT (8-44) U/L Alkaline Phosphatase (41-126) U/L Total Protein (6.2-8.2) g/dL Albumin (3.8-4.9) g/dL Albumin/Globulin Ratio (1.60-3.17) Ratio Stool Occult Blood (Negative) Microbiology - Last 24 Hours (Table) 12/04/23 15:45 Blood Culture - Preliminary Blood 12/04/23 16:00 Blood Culture - Preliminary Blood Assessment and Plan (1) Unstageable pressure ulcer of left buttock Current Visit: Yes Status: Acute Code(s): L89.320 - PRESSURE ULCER OF LEFT BUTTOCK, UNSTAGEABLE SNOMED Code(s): 14112295596961861
[2023-12-06] MEDS: POTASSIUM CHLORIDE ER 20 MEQ TAB.ER PO STA (10:37)
[2023-12-06] MEDS: SODIUM CHLORIDE 0.9% 1,000 ML IV ONE ×3 (11:13→21:29)
[2023-12-06 11:38] LABS: Glucose,Whole Blood 126 mg/dL (70-110)
--- NOTE | 2023-12-06 12:41 | P.PN ---
Subjective This is a pleasant 73 years old female who presents to the emergency room for lower abdominal fistula drainage, associated with generalized weakness. Patient looks awake alert but tired looking, pale. Feels generally weak. N has mild generalized abdominal pain and tenderness. No rebound tenderness. Blood with malodorous left lower abdominal fistula drainage with fecal material coming out. Patient also with right rotation. Patient also with unstageable sacral pressure ulcer. With some evidence of cellulitis. Patient is mildly confused. But no headache or weakness in upper or lower patient was hypotensive with a blood pressure/42, currently slightly better 96/43. Potassium is low 2.9, WBC elevated 23,000, hemoglobin 7.4. Creatinine 0.7. Liver enzymes unremarkable. CT of the abdomen pelvis showing sigmoid diverticulitis and proctitis. 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 Please refer to the report for more details. Patient was ordered received normal saline boluses. Currently on Normosol at 130 mL/h She received 1 dose of Zosyn and started on Flagyl. We are going to add cefepime for gram-negative coverage. 12/05/2023 Patient is awake and alert, generally weak and tired, mildly drowsy Denies abdominal pain or tenderness, she has fistula in the left lower abdomen She denies chest pain or dyspnea. No headache dizziness weakness or numbness. No breathing difficulty. And currently she is saturating well on room air. Blood pressure is still on the low side.but is improving while on IV fluid Glucose 65 and her fluids changed to D5 normal saline at 1 30 mL/h She is currently covered with cefepime and IV Flagyl and IV Protonix She has leukocytosis of 23,000, hemoglobin stable 7.9, low potassium been replaced. Magnesium is normal 2.0. B12 541, Elevated ESR 75 and CRP 25 Patient at moderate risk for her multiple medical problems. Because of this ec hocardiogram was requested and cardiology consulted for preop evaluation. 12/06/2023 Patient remains awake and oriented, mildly lethargic Patient today was supposed to go for surgery to fix her enteric fistula Blood pressure was on the low side this morning I got a call from the bedside nurse blood pressure was 68/32, a bolus of normal saline is provided as well as midodrine Blood pressure a little low after first bolus, where going to give her another bolus of 1 L follow-up with the blood pressure. 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 [employer] Operator eval into the patient for preop assessment and there is no contraindication to proceed with surgery. Patient remains on normal saline with 30 mL/h, cefepime, IV Flagyl and IV Protonix Review of systems CONSTITUTIONAL: No fever, no malaise, no fatigue. HEENT: No recent visual problems or hearing problems. Denied any sore throat. CARDIOVASCULAR: No orthopnea, PND, no palpitations, no syncope. PULMONARY: No shortness of breath, no cough, no hemoptysis. Active Medications Generic Name Dose Route Start Last Admin Trade Name Freq PRN Reason Stop Dose Admin Acetaminophen 650 mg 12/04/23 18:04 Acetaminophen Tab 325 Mg Tab PO Q6HR PRN Mild Pain or Fever > 100.5 Heparin Sodium (Porcine) 5,000 unit 12/05/23 21:00 12/06/23 09:16 Heparin Sodium,Porcine 5,000 Unit/Ml 1 Ml Vial SQ Not Given Q12HR [facility] Cefepime HCl 2 gm/ Sodium 100 mls @ 25 mls/hr 12/05/23 00:00 12/06/23 12:20 Chloride IVPB 25 mls/hr Q8HR [facility] Administration Protocol Dextrose/Sodium Chloride 1,000 mls @ 130 mls/hr 12/05/23 09:45 12/06/23 09:16 Dextrose 5%-Ns Iv Soln IV 130 mls/hr .Q7H42M [facility] Administration Metronidazole 500 mg/ IV 100 mls @ 100 mls/hr 12/05/23 22:00 12/06/23 05:29 Solution IVPB 100 mls/hr Q8H [facility] Administration Protocol Midodrine 5 mg 12/06/23 10:00 12/06/23 11:09 Midodrine 5 Mg Tab PO Not Given AC-TID [facility] Miscellaneous Information 1 each 12/04/23 19:17 Potassium Replacement Protocol 1 Each Misc MISCELLANE DAILY PRN Per Protocol Protocol Miscellaneous Information 1 each 12/04/23 19:17 Magnesium Replacement Protocol 1 Each Misc MISCELLANE DAILY PRN Per Protocol Protocol Miscellaneous Information 1 each 12/04/23 18:55 Potassium Replacement Protocol 1 Each Misc MISCELLANE DAILY PRN Per Protocol Protocol Morphine Sulfate 4 mg 12/04/23 18:04 Morphine Sulfate 4 Mg/Ml Syringe IV Q4HR PRN Severe Pain (Scale 7 to 10) Naloxone HCl 0.2 mg 12/04/23 18:04 Naloxone 0.4 Mg/Ml 1 Ml Vial IV Q2M PRN Opioid Reversal Pantoprazole Sodium 40 mg 12/05/23 09:00 12/06/23 10:05 Pantoprazole 40 Mg/10 Ml Vial IVP 40 mg DAILY [facility] Administration Objective - Vital Signs Vital signs: Vital Signs Temp 97.7 F 12/06/23 09:55 Pulse 80 12/06/23 11:06 Resp 20 12/06/23 11:06 BP 68/32 12/06/23 09:55 Pulse Ox 95 12/06/23 09:55 FiO2 Intake & Output 12/05/23 12/06/23 12/06/23 18:59 06:59 18:59 Intake Total 1340 Output Total 800 Balance -800 1340 Weight 81.647 kg Intake: Intake, IV Titration 1340 Amount Cefepime 2 gm In Sodium 100 Chloride 0.9% 100 ml @ 25 mls/hr IVPB Q8HR [facility] Rx# :[id number] Dextrose 5%-0.9% NaCl 1, 1040 000 ml @ 130 mls/hr IV . Q7H42M [facility] Rx#:[id number] metroNIDAZOLE-NS PMX 500 200 mg In Saline 1 100ml.bag @ 100 mls/hr IVPB Q8H [facility] Rx#:[id number] Output: Urine 800 Other: Voiding Method Indwelling Catheter Indwelling Catheter # Bowel Movements 1 - Exam -GENERAL: The patient is alert and oriented x3, mildly drowsy not in any acute distress. Well developed, well nourished. HEENT: Pupils are round and equally reacting to light. EOMI. No scleral icterus. No conjunctival pallor. Normocephalic, atraumatic. No pharyngeal erythema. No thyromegaly. CARDIOVASCULAR: S1 and S2 present. No murmurs, rubs, or gallops. PULMONARY: Chest is clear to auscultation, no wheezing , no crackles. -ABDOMEN: Soft, nontender, nondistended, normoactive bowel sounds. No palpable organomegaly. Left lower abdominal war fecal fistula MUSCULOSKELETAL: No joint swelling or deformity. -EXTREMITIES: No cyanosis, clubbing, or pedal edema. Right knee amputation, old NEUROLOGICAL: Gross neurological examination did not reveal any focal deficits. SKIN: No rashes. no petechiae. - Labs CBC & Chem 7: 12/06/23 06:05 12/06/23 06:05 Labs: Abnormal Lab Results - Last 24 Hours (Table) 12/04/23 12/05/23 12/06/23 Range/Units 19:15 09:52 02:43 WBC (3.8-10.6) k/uL RBC (3.80-5.40) m/uL Hgb (11.4-16.0) gm/dL Hct (34.0-46.0) % MCV (80.0-100.0) fL MCH (25.0-35.0) pg MCHC (31.0-37.0) g/dL RDW (11.5-15.5) % Plt Count (150-450) k/uL Neutrophils # (1.3-7.7) k/uL Potassium (3.5-5.5) mmol/L Chloride (96-109) mmol/L Carbon Dioxide (21.6-31.8) mmol/L Glucose (70-110) mg/dL POC Glucose (mg/dL) 119 H (70-110) mg/dL Calcium (8.7-10.3) mg/dL Iron 7 L (50-170) UG/DL TIBC 104 L (228-460) UG/DL % Saturation 6.73 L (12.00-45.00) Transferrin 74.4 L (204.0-354.0) mg/dL Stool Occult Blood Positive H (Negative) 12/06/23 12/06/23 12/06/23 Range/Units 06:05 06:05 11:35 WBC 22.8 H (3.8-10.6) k/uL RBC 3.40 L (3.80-5.40) m/uL Hgb 7.9 L (11.4-16.0) gm/dL Hct 26.6 L (34.0-46.0) % MCV 78.5 L (80.0-100.0) fL MCH 23.2 L (25.0-35.0) pg MCHC 29.6 L (31.0-37.0) g/dL RDW 20.7 H (11.5-15.5) % Plt Count 699 H (150-450) k/uL Neutrophils # 20.8 H (1.3-7.7) k/uL Potassium 3.4 L (3.5-5.5) mmol/L Chloride 113 H (96-109) mmol/L Carbon Dioxide 19.1 L (21.6-31.8) mmol/L Glucose 116 H (70-110) mg/dL POC Glucose (mg/dL) 126 H (70-110) mg/dL Calcium 7.3 L (8.7-10.3) mg/dL Iron (50-170) UG/DL TIBC (228-460) UG/DL % Saturation (12.00-45.00) Transferrin (204.0-354.0) mg/dL Stool Occult Blood (Negative) Microbiology - Last 24 Hours (Table) 12/04/23 15:45 Blood Culture - Preliminary Blood 12/04/23 16:00 Blood Culture - Preliminary Blood Assessment and Plan Assessment: Acute sigmoid sigmoid colitis, diverticulitis with proctitis. With multiple entero-cutaneous and entero-vesical fistulas, including to the left lower abdominal wall. Severe sepsis with leukocytosis and hypotension, present on admission. Dehydration and hypovolemia. Acute anemia, unknown baseline, chronic microcytic Full-thickness sacral pressure ulcer, with no obvious osseous erosions. Metabolic encephalopathy, with possible elements of delirium Bilateral adrenal nodule, recommend follow-up CT in 3 months. Acute urinary tract infection/cystitis. possible Plan: Continue with IV fluid and monitor vitals Continue with antibiotic, Flagyl and add IV cefepime IV Protonix Keep n.p.o. Surgery team consult already contacted from the emergency room Replace monitor hemoglobin and transfuse for Hb less than 7 tart patient on IV Protonix. Cardiology team consult on check echocardiogram ID team consult Monitor and follow-up blood culture DVT prophylaxis: sc heparin, SCD GI prophylaxis: Protonix Prognosis guarded
--- NOTE | 2023-12-06 13:56 | PN ---
PROGRESS NOTE SUBJECTIVE: A 73-year-old lady with history of right below-knee amputation, who presented to hospital with fistula and is to undergo surgery by Dr. Hardy, who consulted us for preop cardiac evaluation. On an echocardiogram I performed she has normal LV systolic function. She is otherwise free of symptoms today. She is to have surgery later today. Blood pressure is on the lower side and she is has received midodrine and is receiving fluid boluses. OBJECTIVE: VITAL SIGNS: On exam, blood pressure is 90/60. CHEST: Reveals good air entry bilaterally. HEART: Reveals first and second heart sounds. No gallop. EXTREMITIES: Did not reveal any edema. ASSESSMENT AND PLAN: Preop cardiac evaluation. The patient is at increased but acceptable risk for surgery under anesthesia. Continue with fluid boluses and midodrine as needed for hypotension. MMODL / IJN: [id number] /
[2023-12-06] MEDS: IV FLUID CONTINUATION 1,000 ML IV ONE (15:16)
--- NOTE | 2023-12-06 15:41 | P.PN ---
Subjective Progress Note Date: 12/06/23 Principal diagnosis: Reason for follow-up is complicated diverticulitis with colocutaneous fistula Patient is a 73-year-old female who was brought into the ER at [facility] for the patient complaining of generalized weakness patient noticed to have sacral pressure ulcer and also complicate diverticulitis with a fistula to the left lower abdominal wall. On today's visit that is 12/06/2023,the patient denies any fever or any chills, patient is breathing comfortably on room air, the patient denies chest pain shortness of breath and no significant cough, patient denies abdominal pain, no nausea vomiting has been complaining of pain mostly to the sacral wound area. Patient white count is down to 22.8, creatinine is 1.0 urine is growing gram-negative blood cultures are pending Objective - Vital Signs Vital signs: Vital Signs Temp 97 F L 12/06/23 15:16 Pulse 72 12/06/23 15:16 Resp 14 12/06/23 15:16 BP 86/51 12/06/23 15:16 Pulse Ox 99 12/06/23 15:16 FiO2 Intake & Output 12/05/23 12/06/23 12/06/23 18:59 06:59 18:59 Intake Total 1340 Output Total 800 600 Balance -800 1340 -600 Weight 81.647 kg 81.647 kg Intake: Intake, IV Titration 1340 Amount Cefepime 2 gm In Sodium 100 Chloride 0.9% 100 ml @ 25 mls/hr IVPB Q8HR [facility] Rx# :[id number] Dextrose 5%-0.9% NaCl 1, 1040 000 ml @ 130 mls/hr IV . Q7H42M [facility] Rx#:[id number] metroNIDAZOLE-NS PMX 500 200 mg In Saline 1 100ml.bag @ 100 mls/hr IVPB Q8H [facility] Rx#:[id number] Output: Urine 800 600 Other: Voiding Method Indwelling Catheter Indwelling Catheter # Bowel Movements 1 - Exam GENERAL DESCRIPTION: An elderly female lying in bed in no distress RESPIRATORY SYSTEM: Unlabored breathing , decreased breath sounds at bases HEART: S1 S2 regular rate and rhythm , ABDOMEN: Soft , no tenderness EXTREMITIES: No edema feet - Labs CBC & Chem 7: 12/06/23 06:05 12/06/23 06:05 Labs: Abnormal Lab Results - Last 24 Hours (Table) 12/05/23 12/06/23 12/06/23 Range/Units 09:52 02:43 06:05 WBC 22.8 H (3.8-10.6) k/uL RBC 3.40 L (3.80-5.40) m/uL Hgb 7.9 L (11.4-16.0) gm/dL Hct 26.6 L (34.0-46.0) % MCV 78.5 L (80.0-100.0) fL MCH 23.2 L (25.0-35.0) pg MCHC 29.6 L (31.0-37.0) g/dL RDW 20.7 H (11.5-15.5) % Plt Count 699 H (150-450) k/uL Neutrophils # 20.8 H (1.3-7.7) k/uL Potassium (3.5-5.5) mmol/L Chloride (96-109) mmol/L Carbon Dioxide (21.6-31.8) mmol/L Glucose (70-110) mg/dL POC Glucose (mg/dL) 119 H (70-110) mg/dL Calcium (8.7-10.3) mg/dL Iron 7 L (50-170) UG/DL TIBC 104 L (228-460) UG/DL % Saturation 6.73 L (12.00-45.00) Transferrin 74.4 L (204.0-354.0) mg/dL 12/06/23 12/06/23 Range/Units 06:05 11:35 WBC (3.8-10.6) k/uL RBC (3.80-5.40) m/uL Hgb (11.4-16.0) gm/dL Hct (34.0-46.0) % MCV (80.0-100.0) fL MCH (25.0-35.0) pg MCHC (31.0-37.0) g/dL RDW (11.5-15.5) % Plt Count (150-450) k/uL Neutrophils # (1.3-7.7) k/uL Potassium 3.4 L (3.5-5.5) mmol/L Chloride 113 H (96-109) mmol/L Carbon Dioxide 19.1 L (21.6-31.8) mmol/L Glucose 116 H (70-110) mg/dL POC Glucose (mg/dL) 126 H (70-110) mg/dL Calcium 7.3 L (8.7-10.3) mg/dL Iron (50-170) UG/DL TIBC (228-460) UG/DL % Saturation (12.00-45.00) Transferrin (204.0-354.0) mg/dL Microbiology - Last 24 Hours (Table) 12/04/23 23:44 Urine Culture - Preliminary Urine,Catheterized Gram Neg Bacilli 12/04/23 15:45 Blood Culture - Preliminary Blood 12/04/23 16:00 Blood Culture - Preliminary Blood Assessment and Plan (1) Diverticulitis of intestine, part unspecified, without perforation or abscess without bleeding Current Visit: Yes Status: Acute Code(s): K57.92 - DVTRCLI OF INTEST, PART UNSP, W/O PERF OR ABSCESS W/O BLEED SNOMED Code(s): 496884540 (2) Leukocytosis Current Visit: Yes Status: Acute Code(s): D72.829 - ELEVATED WHITE BLOOD CELL COUNT, UNSPECIFIED SNOMED Code(s): 300862054 Plan: 1patient with complicated diverticulitis with evidence of fistulous communication to the skin left lower quadrant area and concern for possible extension to the bladder, will need to cover for the polymicrobial jessie associated with such condition including enteric gram-negative both aerobes and anaerobes 2-patient also have a pressure ulcer but no significant surrounding cellulitis, wound care has been consulted continue local wound care per them 3-patient surgery has been postponed today because of hypokalemia and hypertension, patient to continue with cefepime and Flagyl and monitor clinical course closely Family at the bedside questions answered Dictation was produced using [employer] dictation software. please excuse any grammatical, word or spelling errors. Time with Patient: Less than 30
[2023-12-06] MEDS: MIDAZOLAM 2 MG/2 ML VIAL IVP ONE (16:00)
--- NOTE | 2023-12-06 16:08 | P.PN ---
Subjective Progress Note Date: 12/06/23 CHIEF COMPLAINT: Left lower quadrant colonic fistula HISTORY OF PRESENT ILLNESS: The patient is a 64-lync-dlb-year-old female with no previous medical care and extremely hard of hearing who presents with leukocytosis including left lower quadrant abdominal pain. In the last 6 hours, patient has been hypotensive with persistent leukocytosis and intermittent fevers consistent with septic shock. She has barely responded to 3 L normal saline bolus. Urgent surgical aspiration described to the patient and family. Cardiac risk assessment has been obtained ROS: No reports of nausea and vomiting. No new chest pain. No productive sputum PHYSICAL EXAM: VITAL SIGNS: Reviewed CONSTITUTIONAL: Well developed and in no acute distress. EYES: Conjuctivae without sclera icterus. Extraocular movements grossly intact. HEAD, EARS, NOSE, THROAT: Moist buccal mucosa. Head is atraumatic, normocephalic . Extremely hard of hearing. No nasal drainage. RESPIRATORY: Non-labored respirations and equal bilateral excursions. CARDIOVASCULAR: Palpable 2+ radial pulses. ABDOMEN: Ostomy at the left lower quadrant with fecal matter imaging through skin from [place] cutaneous fistula MUSCULOSKELETAL: No gross deformity of the lower extremities noted. No clubbing. No cyanosis. SKIN: Good skin turgor. Well perfused. NEUROLOGIC: Cranial nerves II through XII grossly intact. No focal or lateralizing signs. PSYCH: Appropriate affect. Alert and oriented to person, place and time. CLINICAL LABS: Reviewed. WBC elevated at 22,000. Hemoglobin less than 8.0, anemic. Iron panel confirms chronic iron deficiency anemia. ECHO: Reviewed left ventricular ejection fraction over 55% with intraseptal an eurysm of the atrial wall. ASSESSMENT: 1. 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 Sensorineural hearing loss, moderate to extreme 3. No previous medical care 4. Severe iron deficiency anemia PLAN: 1. Due to patient persistent hypotension despite fluid bolus and septic shock, arterial line and invasive lines being placed perioperatively 2. Discussion with user experience lead and anesthesiologist performed with postoperative recovery in intensive care unit. 3. Overall, prognosis guarded and patient extremely high risk. Objective - Vital Signs Vital signs: Vital Signs Temp 97 F L 12/06/23 15:16 Pulse 72 12/06/23 15:16 Resp 14 12/06/23 15:16 BP 86/51 12/06/23 15:16 Pulse Ox 99 12/06/23 15:16 FiO2 Intake & Output 12/05/23 12/06/23 12/06/23 18:59 06:59 18:59 Intake Total 1340 Output Total 800 600 Balance -800 1340 -600 Weight 81.647 kg 81.647 kg Intake: Intake, IV Titration 1340 Amount Cefepime 2 gm In Sodium 100 Chloride 0.9% 100 ml @ 25 mls/hr IVPB Q8HR [facility] Rx# :[id number] Dextrose 5%-0.9% NaCl 1, 1040 000 ml @ 130 mls/hr IV . Q7H42M [facility] Rx#:[id number] metroNIDAZOLE-NS PMX 500 200 mg In Saline 1 100ml.bag @ 100 mls/hr IVPB Q8H [facility] Rx#:[id number] Output: Urine 800 600 Other: Voiding Method Indwelling Catheter Indwelling Catheter # Bowel Movements 1 - Labs CBC & Chem 7: 12/06/23 06:05 12/06/23 06:05 Labs: Abnormal Lab Results - Last 24 Hours (Table) 12/05/23 12/06/23 12/06/23 Range/Units 09:52 02:43 06:05 WBC 22.8 H (3.8-10.6) k/uL RBC 3.40 L (3.80-5.40) m/uL Hgb 7.9 L (11.4-16.0) gm/dL Hct 26.6 L (34.0-46.0) % MCV 78.5 L (80.0-100.0) fL MCH 23.2 L (25.0-35.0) pg MCHC 29.6 L (31.0-37.0) g/dL RDW 20.7 H (11.5-15.5) % Plt Count 699 H (150-450) k/uL Neutrophils # 20.8 H (1.3-7.7) k/uL Potassium (3.5-5.5) mmol/L Chloride (96-109) mmol/L Carbon Dioxide (21.6-31.8) mmol/L Glucose (70-110) mg/dL POC Glucose (mg/dL) 119 H (70-110) mg/dL Calcium (8.7-10.3) mg/dL Iron 7 L (50-170) UG/DL TIBC 104 L (228-460) UG/DL % Saturation 6.73 L (12.00-45.00) Transferrin 74.4 L (204.0-354.0) mg/dL 12/06/23 12/06/23 Range/Units 06:05 11:35 WBC (3.8-10.6) k/uL RBC (3.80-5.40) m/uL Hgb (11.4-16.0) gm/dL Hct (34.0-46.0) % MCV (80.0-100.0) fL MCH (25.0-35.0) pg MCHC (31.0-37.0) g/dL RDW (11.5-15.5) % Plt Count (150-450) k/uL Neutrophils # (1.3-7.7) k/uL Potassium 3.4 L (3.5-5.5) mmol/L Chloride 113 H (96-109) mmol/L Carbon Dioxide 19.1 L (21.6-31.8) mmol/L Glucose 116 H (70-110) mg/dL POC Glucose (mg/dL) 126 H (70-110) mg/dL Calcium 7.3 L (8.7-10.3) mg/dL Iron (50-170) UG/DL TIBC (228-460) UG/DL % Saturation (12.00-45.00) Transferrin (204.0-354.0) mg/dL Microbiology - Last 24 Hours (Table) 12/04/23 23:44 Urine Culture - Preliminary Urine,Catheterized Gram Neg Bacilli 12/04/23 15:45 Blood Culture - Preliminary Blood 12/04/23 16:00 Blood Culture - Preliminary Blood
--- NOTE | 2023-12-06 16:34 | P.ANPRN ---
Procedure Note - Anesthesia - Invasive Line Right Arterial Line Time Out Performed: Yes Date of Procedure: 12/06/23 Time of Procedure: 15:40 Location of Patient: PreOp Preparation: Sterile Prep Arterial Line Location: Radial Ultrasound Used: Yes Purpose - Visualization and Identification of Vasculature: Yes Image Stored and Saved: Yes Narrative: Invasive line placement per sterile protocol utilized.
[2023-12-06] MEDS ORDERED: ETOMIDATE 2 MG/ML 10 ML VIAL ONE (16:36)
[2023-12-06] MEDS ORDERED: SUCCINYLCHOLINE CHLORIDE 200 MG/10 ML VIAL IV ONE (16:36)
[2023-12-06] MEDS ORDERED: PHENYLEPHRINE 10 MG/ML VIAL ONE (16:36)
[2023-12-06] MEDS ORDERED: ROCURONIUM 10 MG/ML (5 ML VIAL) IV ONE (16:36)
[2023-12-06] MEDS ORDERED: SODIUM BICARB 8.4% 50 ML SYR (1 MEQ/ML) ONE (16:36)
[2023-12-06] MEDS ORDERED: fentaNYL (PF) 50 MCG/ML 2 ML AMP ONE (16:36)
[2023-12-06] MEDS ORDERED: CALCIUM CHLORIDE 100 MG/ML 10 ML SYRINGE ONE (16:36)
[2023-12-06] MEDS ORDERED: LIDOCAINE 1% INJ 10MG/ML (20 ML MDV) ONE (16:36)
--- NOTE | 2023-12-06 16:36 | P.ANPRN ---
Procedure Note - Anesthesia - Invasive Line Right Central Line Time Out Performed: Yes Date of Procedure: 12/06/23 Time of Procedure: 15:51 Location of Patient: PreOp Central Line Location: Internal Jugular Ultrasound Used: Yes Purpose - Visualization and Identification of Vasculature: Yes Image Stored and Saved: Yes Narrative: Invasive line placement per sterile protocol utilized.
[2023-12-06 16:40] LABS: ABG Base Excess -4.7 mmol/L; ABG HCO3 20 mmol/L (21-25); ABG Oxygen Saturation 95.4 % (94-97); ABG PCO2 29 mmHg (35-45); ABG PH 7.43 (7.35-7.45); ABG PO2 73 mmHg (83-108); ABG TCO2 21 mmol/L (19-24); Allen Test Performed? Yes
[2023-12-06] MEDS: LACTATED RINGERS 1,000 ML IV ONE (16:41)
--- NOTE | 2023-12-06 16:57 | XR ---
EXAMINATION TYPE: XR chest 1V portable DATE OF EXAM: 12/06/2023 4:43 PM CLINICAL INDICATION:Female, 73 years old with history of POST CENTRAL LINE; [facility] COMPARISON: None TECHNIQUE: XR chest 1V portable Frontal view of the chest. FINDINGS: Lungs/Pleura: There is no evidence of pleural effusion, focal consolidation, or pneumothorax. Pulmonary vascularity: Unremarkable. Heart/mediastinum: Cardiomediastinal silhouette is unremarkable. Musculoskeletal: No acute osseous pathology. Other findings: None Lines/Tubes: Right internal jugular central venous catheter with distal tip at the cavoatrial junction. Left-sided PICC with distal tip at the superior vena cava. IMPRESSION: 1. No acute cardiopulmonary disease/process. 2. Support lines in appropriate position.
[2023-12-06 19:52] LABS: Glucose,Whole Blood 113 mg/dL (70-110)
[2023-12-06 20:33] LABS: ABG Base Excess -6.6 mmol/L; ABG HCO3 21 mmol/L (21-25); ABG Oxygen Saturation 98.1 % (94-97); ABG PCO2 51 mmHg (35-45); ABG PH 7.22 (7.35-7.45); ABG PO2 255 mmHg (83-108); ABG TCO2 23 mmol/L (19-24)
[2023-12-06 20:36] LABS: Allen Test Performed? no
[2023-12-06] MEDS: propofoL 100 ML IV ONE (20:45)
--- NOTE | 2023-12-06 21:23 | P.CNPUL ---
History of Present Illness Consult date: 12/06/23 Chief complaint: laparotomy exploratory History of present illness: This is a 74-year-old female patient who was brought into the intensive care unit after an extensive abdominal surgery. The patient underwent exploratory laparotomy and sigmoid colectomy and diverging colostomy. The patient was emergently taken to the operating room this afternoon as the patient was becoming hypotensive and she had developed persistent leukocytosis intermittent fevers consistent with sepsis and septic shock. The patient was also becoming hypotensive despite being resuscitated with IV fluids and the patient preoperatively received a total of 3 L of IV fluids. An emergent surgical exploration was indicated. 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 At this point in time, the patient is sedated and the patient is currently on p ropofol. She is intubated on mechanical ventilator and she is on assist-control mode at a rate of 12, tidal volume of 400, FiO2 of 100% and a PEEP of 5. Chest x-ray shows a right IJ triple-lumen catheter. ET tube is in good location. No airspace disease or consolidation. The blood gases showed a pH of 7.22 with a pCO2 of 51 and pO2 of 255. The patient is currently on no pressors and urine ou tput is quite diminished in the order of 10 to 20 cc since arrival from the operating room. The patient is on IV cefepime and Flagyl. Received a total of 2 unit PRBC intraop Review of Systems ROS unobtainable: due to endotracheal tube Past Medical History Past Medical History: Unable to Obtain Additional Past Medical History / Comment(s): impaired hearing and the previous right BKA History of Any Multi-Drug Resistant Organisms: None Reported Additional Past Surgical History / Comment(s): R below the knee amputation Past Psychological History: No Psychological Hx Reported - Past Family History Father Additional Family Medical History / Comment(s): Colon Cancer Medications and Allergies Home Medications Medication Instructions Recorded Confirmed Type No Known Home Medications 12/04/23 12/04/23 History Allergies Allergy/AdvReac Type Severity Reaction Status Date / Time latex Allergy Rash/Hives Verified 12/04/23 17:49 Physical Exam Vitals: Vital Signs Temp Pulse Pulse Resp BP BP Pulse Ox 12/06/23 20:03 12/06/23 20:00 98.1 F 80 14 106/52 98 12/06/23 19:48 12/06/23 16:35 72 16 102/48 100 12/06/23 16:20 71 16 76/34 100 12/06/23 15:16 97 F L 72 14 86/51 99 12/06/23 15:15 97.6 F 78 16 85/49 96 12/06/23 14:00 77/42 12/06/23 11:06 80 20 12/06/23 10:30 70 80/41 12/06/23 09:55 97.7 F 78 20 68/32 95 12/06/23 09:18 81/40 12/06/23 06:55 97.6 F 80 18 96/54 91 L 12/06/23 02:00 98.2 F 82 87/55 96 FiO2 12/06/23 20:03 100 12/06/23 20:00 100 12/06/23 19:48 100 12/06/23 16:35 12/06/23 16:20 12/06/23 15:16 12/06/23 15:15 12/06/23 14:00 12/06/23 11:06 12/06/23 10:30 12/06/23 09:55 12/06/23 09:18 12/06/23 06:55 12/06/23 02:00 Intake and Output 12/06/23 12/06/23 12/06/23 06:59 14:59 22:59 Intake Total 1340 620 Output Total 600 Balance 1340 20 Intake: IV 0 Intake, IV Titration 1340 Amount Cefepime 2 gm In Sodium 100 Chloride 0.9% 100 ml @ 25 mls/hr IVPB Q8HR [facility] Rx# :[id number] Dextrose 5%-0.9% NaCl 1, 1040 000 ml @ 130 mls/hr IV . Q7H42M [facility] Rx#:[id number] metroNIDAZOLE-NS PMX 500 200 mg In Saline 1 100ml.bag @ 100 mls/hr IVPB Q8H [facility] Rx#:[id number] Blood Product 620 Rc As-1 Unit 310 [id number] Rc As-1 Unit 310 [id number] Output: Urine 600 Other: Voiding Method Indwelling Catheter Indwelling Catheter # Bowel Movements 1 Weight 81.647 kg General appearance the patient is sedated and patient is calm. NG tube are both in place and the patient has been adequately sedated with propofol. Head exam was generally normal. There was no scleral icterus or corneal arcus. Mucous membranes were moist. Neck was supple and without jugular venous distension, thyromegaly, or carotid bruits. Carotids were easily palpable bilaterally. There was no adenopathy. Patient has a right IJ triple-lumen catheter in place. Lungs were clear to auscultation and percussion, and with normal diaphragmatic excursion. No wheezes or rales were noted. Cardiac exam revealed the PMI to be normally situated and sized. The rhythm was regular and no extrasystoles were noted during several minutes of auscultation. The first and second heart sounds were normal and physiologic splitting of the second heart sound was noted. There were no murmurs, rubs, clicks, or gallops. Abdomen is soft. Bowel sounds are hypoactive/absent. There is a mid abdominal wound and the surgical scar is clean and the wound VAC has been applied. No direct tenderness. No rebound tenderness. Extremities reveal a below-knee amputation on the right. The patient also has a wound in the left groin at the site of the enterocutaneous fistula and the wound has been debrided. Pulses are present in the present limbs. No cyanosis or clubbing. Neurologically, the patient is sedated. Results - Laboratory Findings CBC and BMP: 12/06/23 06:05 12/06/23 06:05 ABG ABG pH 7.22 (7.35-7.45) L 12/06/23 20:32 ABG pCO2 51 mmHg (35-45) H 12/06/23 20:32 ABG pO2 255 mmHg (83-108) H 12/06/23 20:32 ABG O2 Saturation 98.1 % (94-97) H 12/06/23 20:32 PT/INR, D-dimer PT 13.8 sec (10.0-12.5) H 12/04/23 20:08 INR 1.3 (<1.2) H 12/04/23 20:08 Abnormal lab findings: Abnormal Labs 12/04/23 12/04/23 12/04/23 13:44 13:44 13:44 WBC 23.4 H RBC 3.27 L Hgb 7.4 L Hct 24.6 L MCV 75.3 L MCH 22.7 L MCHC 30.1 L RDW 20.5 H Plt Count 763 H MPV Immature Gran # Neutrophils # 22.0 H Lymphocytes # 0.9 L Eosinophils # Acanthocytes (Spur) ESR PT INR APTT ABG pH ABG pCO2 ABG pO2 ABG HCO3 ABG O2 Saturation Potassium 2.9 L Chloride Carbon Dioxide Glucose POC Glucose (mg/dL) Calcium 7.6 L Iron TIBC % Saturation Transferrin Total Bilirubin ALT Alkaline Phosphatase 169 H C-Reactive Protein Total Protein 4.9 L Albumin 2.0 L Albumin/Globulin Ratio Lipase <10 L Urine Appearance Cloudy H Urine Protein 1+ H Urine Ketones 1+ H Urine Blood Large H Urine Nitrite Positive H Ur Leukocyte Esterase Large H Urine RBC 8 H Urine WBC 13 H Urine Bacteria Many H Urine Mucus Moderate H Stool Occult Blood Crossmatch 12/04/23 12/04/23 12/04/23 18:28 19:15 20:08 WBC RBC Hgb Hct MCV MCH MCHC RDW Plt Count MPV Immature Gran # Neutrophils # Lymphocytes # Eosinophils # Acanthocytes (Spur) ESR PT 13.8 H INR 1.3 H APTT 31.8 H ABG pH ABG pCO2 ABG pO2 ABG HCO3 ABG O2 Saturation Potassium Chloride Carbon Dioxide Glucose POC Glucose (mg/dL) Calcium Iron TIBC % Saturation Transferrin Total Bilirubin ALT Alkaline Phosphatase C-Reactive Protein Total Protein Albumin Albumin/Globulin Ratio Lipase Urine Appearance Urine Protein Urine Ketones Urine Blood Urine Nitrite Ur Leukocyte Esterase Urine RBC Urine WBC Urine Bacteria Urine Mucus Stool Occult Blood Positive H Crossmatch See Detail 12/04/23 12/04/23 12/05/23 20:08 20:08 07:12 WBC 23.7 H RBC 3.46 L Hgb 7.9 L Hct 26.4 L MCV 76.4 L MCH 22.9 L MCHC 30.0 L RDW 20.5 H Plt Count 735 H MPV Immature Gran # Neutrophils # 22.1 H Lymphocytes # Eosinophils # Acanthocytes (Spur) ESR 75 H PT INR APTT ABG pH ABG pCO2 ABG pO2 ABG HCO3 ABG O2 Saturation Potassium 3.2 L 2.9 L Chloride 110 H 111 H Carbon Dioxide 19 L 20.4 L Glucose 64 L POC Glucose (mg/dL) Calcium 7.3 L 7.0 L Iron TIBC % Saturation Transferrin Total Bilirubin <0.2 L ALT 7 L Alkaline Phosphatase 134 H C-Reactive Protein 25.0 H Total Protein 4.5 L Albumin 2.1 L Albumin/Globulin Ratio 0.88 L Lipase Urine Appearance Urine Protein Urine Ketones Urine Blood Urine Nitrite Ur Leukocyte Esterase Urine RBC Urine WBC Urine Bacteria Urine Mucus Stool Occult Blood Crossmatch 12/05/23 12/05/23 12/05/23 07:12 09:20 09:52 WBC 27.63 H RBC 3.41 L Hgb 7.6 L Hct 26.1 L MCV 76.5 L MCH 22.3 L MCHC 29.1 L RDW 23.3 H Plt Count 691 H MPV 8.9 L Immature Gran # 0.22 H Neutrophils # 25.75 H Lymphocytes # Eosinophils # 0.01 L Acanthocytes (Spur) 2+ A ESR PT INR APTT ABG pH ABG pCO2 ABG pO2 ABG HCO3 ABG O2 Saturation Potassium Chloride Carbon Dioxide Glucose POC Glucose (mg/dL) 65 L Calcium Iron 7 L TIBC 104 L % Saturation 6.73 L Transferrin 74.4 L Total Bilirubin ALT Alkaline Phosphatase C-Reactive Protein Total Protein Albumin Albumin/Globulin Ratio Lipase Urine Appearance Urine Protein Urine Ketones Urine Blood Urine Nitrite Ur Leukocyte Esterase Urine RBC Urine WBC Urine Bacteria Urine Mucus Stool Occult Blood Crossmatch 12/06/23 12/06/23 12/06/23 02:43 06:05 06:05 WBC 22.8 H RBC 3.40 L Hgb 7.9 L Hct 26.6 L MCV 78.5 L MCH 23.2 L MCHC 29.6 L RDW 20.7 H Plt Count 699 H MPV Immature Gran # Neutrophils # 20.8 H Lymphocytes # Eosinophils # Acanthocytes (Spur) ESR PT INR APTT ABG pH ABG pCO2 ABG pO2 ABG HCO3 ABG O2 Saturation Potassium 3.4 L Chloride 113 H Carbon Dioxide 19.1 L Glucose 116 H POC Glucose (mg/dL) 119 H Calcium 7.3 L Iron TIBC % Saturation Transferrin Total Bilirubin ALT Alkaline Phosphatase C-Reactive Protein Total Protein Albumin Albumin/Globulin Ratio Lipase Urine Appearance Urine Protein Urine Ketones Urine Blood Urine Nitrite Ur Leukocyte Esterase Urine RBC Urine WBC Urine Bacteria Urine Mucus Stool Occult Blood Crossmatch 12/06/23 12/06/23 12/06/23 11:35 16:36 19:50 WBC RBC Hgb Hct MCV MCH MCHC RDW Plt Count MPV Immature Gran # Neutrophils # Lymphocytes # Eosinophils # Acanthocytes (Spur) ESR PT INR APTT ABG pH ABG pCO2 29 L ABG pO2 73 L ABG HCO3 20 L ABG O2 Saturation Potassium Chloride Carbon Dioxide Glucose POC Glucose (mg/dL) 126 H 113 H Calcium Iron TIBC % Saturation Transferrin Total Bilirubin ALT Alkaline Phosphatase C-Reactive Protein Total Protein Albumin Albumin/Globulin Ratio Lipase Urine Appearance Urine Protein Urine Ketones Urine Blood Urine Nitrite Ur Leukocyte Esterase Urine RBC Urine WBC Urine Bacteria Urine Mucus Stool Occult Blood Crossmatch 12/06/23 20:32 WBC RBC Hgb Hct MCV MCH MCHC RDW Plt Count MPV Immature Gran # Neutrophils # Lymphocytes # Eosinophils # Acanthocytes (Spur) ESR PT INR APTT ABG pH 7.22 L ABG pCO2 51 H ABG pO2 255 H ABG HCO3 ABG O2 Saturation 98.1 H Potassium Chloride Carbon Dioxide Glucose POC Glucose (mg/dL) Calcium Iron TIBC % Saturation Transferrin Total Bilirubin ALT Alkaline Phosphatase C-Reactive Protein Total Protein Albumin Albumin/Globulin Ratio Lipase Urine Appearance Urine Protein Urine Ketones Urine Blood Urine Nitrite Ur Leukocyte Esterase Urine RBC Urine WBC Urine Bacteria Urine Mucus Stool Occult Blood Crossmatch - Diagnostic Findings Chest x-ray: image reviewed Assessment and Plan Plan: Septic shock secondary to complication of a perforated diverticulitis and development of a colocutaneous fistula. Patient underwent a total laparotomy, colectomy and diverting colostomy and debridement of a cutaneous fistula. Pat ient is currently postop day #0 Sepsis secondary to above, adequately resuscitated and the patient is currently on no pressors Leukocytosis Acute hypercapnic/hypoxic respiratory failure, and the patient has been kept intubated postop. Chest x-ray was normal. Blood gas was noted. Oxygenation is stable for now. The patient continues to have some respiratory acidosis while being on a mechanical ventilator. Chest x-ray findings are stable Previous right below-knee amputation Unstageable pressure ulcer on the left buttocks with significant eschar in place with tunneling noted up to 3 cm in size. Hydropic gallbladder with multiple gallstones Left adrenal nodule 2.1 cm Right adrenal nodule 1.3 cm Left renal cortical cyst measuring 4.4 cm Mild generalized anasarca Plan Continue vent support and decrease respiratory rate to 24 gradually down FiO2 to maintain saturation above 90% keep the patient sedated on propofol Give the patient another bolus of normal saline and start normal citrate of 100 cc an hour Use norepinephrine if needed continue cefepime and Flagyl combination Monitor cultures including blood culture Monitor the white cell count Keep NG tube in place to monitor the output Monitor functionality of the colostomy Wound care to the unstageable left coccygeal/buttocks and the patient will be having chronic gel applied with subsequent debridement and possible wound VAC to that area Heparin subcu for DVT prophylaxis IV Protonix Will continue to follow along with the surgical team. The patient will be kept in the ICU for now. She will be kept intubated overnight.
[2023-12-06] MEDS: SODIUM CHLORIDE 0.9% 1,000 ML IV SCH (21:29)
[2023-12-06] MEDS: CHLORHEXIDINE GLUCONATE 15 ML CUP MUCOUS MEM SCH (21:40)
[2023-12-06 22:10] LABS: Anisocytosis Moderate; Basophils % (A) 0 %; Eosinophils % (A) 0 %; HCT 35.2 % (34.0-46.0); HGB 10.8 gm/dL (11.4-16.0); Hypochromasia Marked; Lymphocytes # (A) 0.8 k/uL (1.0-4.8); Lymphocytes % (A) 3 %; MCH 25.5 pg (25.0-35.0); MCHC 30.7 g/dL (31.0-37.0); MCV 83.2 fL (80.0-100.0); Microcytosis Slight; Monocytes # (A) 0.4 k/uL (0-1.0); Monocytes % (A) 1 %; Neutrophils # (A) 27.8 k/uL (1.3-7.7); Neutrophils % (A) 96 %; Platelet Count 547 k/uL (150-450); Poikilocytosis Slight; RBC 4.23 m/uL (3.80-5.40); RDW 20.2 % (11.5-15.5)
--- NOTE | 2023-12-06 22:17 | P.OP ---
Date of Procedure: 12/06/23 Description of Procedure: SURGEON: JANIS ELENA MD PREOPERATIVE DIAGNOSES: 1. Septic shock 2. Colocutaneous fistula, left lower quadrant 3. Lack of general medical care 4. Complicated left groin wound POSTOPERATIVE DIAGNOSES: 1. Septic shock 2. 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 Lack of general medical care 4. Complicated left groin wound, 4 cm 5. Intermesenteric abscess, pelvis 6. Left inguinal hernia OPERATION: 1. Exploratory laparotomy with sigmoid colectomy 2. Takedown of colocutaneous fistula, left lower quadrant 3. Left inguinal hernia repair without mesh 4. Descending colostomy creation with defunctionalized rectum, Magaña's procedure 5. Peritoneal lavage 1 L 6. Application of universal incisional wound VAC, Prevena 30-cm 7. Debridement of left inguinal complicated using water jet pulse lavage, 3 L normal saline. Anesthesia: GETA, Estimated Blood Loss (ml): 100 Pathology: Sigmoid colon Condition: Guarded Disposition: Intensive care unit COMPLICATIONS: None. FINDINGS: 1. Purulent complicated left groin wound 4 x 2 cm, left inguinal area 2. Sigmoid colon fistula via left inguinal hernia to skin 3. Colocutaneous fistula takedown with rectal stump tagged with 2-0 Prolene 4. Intermesenteric abscess, pelvis divided due to perforated sigmoid diverticulitis 5. Distended gallbladder 6. Small caliber descending colon with small caliber ostomy 7. Septic shock requiring placement of arterial line preoperatively INDICATIONS: The patient is a 73-year-old female who presented to the hospital with left lower quadrant pain including draining purulent left inguinal complicated wound full of stool. Patient has been absent for medical care for over 20+ years. Presented with leukocytosis. Cardiac risk assessment was obtained. Attempted optimization prior to surgery was performed. Patient went into septic shock despite antibiotics and with persistent hypotension despite volume replacement. Exploratory laparotomy, sigmoid colectomy, ostomy creation including placement of invasive lines and recovery in intensive care unit was described to the patient and her family. Patient agreed to proceed with surgery. Informed consent was obtained. DESCRIPTION: An arterial line was placed perioperatively. Patient was brought to the operating room.The patient was placed in supine position whereby general induction wasperformed. Abdomen had been prepped and draped in the standard sterile fashion with placement of nasogastric tube.Gill catheter was previously present. Ioban draping was also placed to minimize any contamination to the skin. A timeout protocol was performed. Next, using #10 blade, the abdomen was entered along the midline whereby an incision was made just above the umbilicus down to the pubis. The peritoneum was entered. Next, self-retaining retractor was placed. The abdomen was explored where along the lower midline, intermesenteric abscess of the pelvis was found. The small bowel was unremarkable. The sigmoid colon was found adherent to the left pelvis. The descending colon was also mobilized along the white line of Toldt. The sigmoid colon was mobilized along the medial and lateral attachments with care to avoid any injury to the ureters along the usual anatomical landmarks. Proximal to the left lower quadrant colocutaneous fistula, a window was created on the mesentery. The colon was divided using a powered Ethicon stapler 60 mm, green staple load. The rest of the descending colon and rectum was dissected free from surrounding tissue. Sigmoid mesentery was mobilized. Distal to the colocutaneous fistula, the colon was edematous. Initial firing was performed using a powered 60-mm stapler black load followed by curved contour stapler, green load. The rectal stump was oversewn using 2-0 V-Loc suture. The externalized rectum was at using 2-0 Prolene. At the left inguinal canal, the colon was mobilized from the left pelvis. Small fistula was found from a left inguinal hernia and divided. Small purulent drainage was found. The left inguinal hernia was oversewn with 2-0 V-Loc, green close in the left inguinal hernia. The left round ligament was most in the process. The bladder and uterus was intact. The descending colon was prepared for maturation of a colostomy. Next, the rest of the colon was mobilized down to the rectum. Next, attention was brought to delivering and creating the descending colostomy. A point along the abdominal wall and rectus muscle was selected for colostomy. Leeanne was used to elevate the skin and a #10 blade was taken across in tangential manner to create the skin defect of approximately quarter-size. The fat of the skin was mobilized using a small rich. The rectus muscle was identified and scored with a cruciate scoring of electro- Bovie cautery. Next, using a muscle-splitting technique with a hemostat, the peritoneum was entered. The peritoneum was widened such that 2 fingerbreadths could easily pass for delivering and evaginating the descending portion of the colon through the skin. The abdominal cavity was copiously irrigated using 1 liter of warm normal saline solution until completely clear and dry. The midline incision was closed using double-stranded 0 PDS. Next, the subcutaneous tissue was copiously irrigated with normal saline and dilute hydrogen peroxide. Skin was closed using stainless skin umang. Attention was brought to preparation of the colostomy. The staple edge was divided and removed. Next quadrant sutures at 12 o'clock, 3 o'clock, 6 o'clock, and 9 o'clock position was made using serosa, mucosal and dermal bites using 3-0 Vicryl. Interrupted 3-0 Vicryl was placed in between all quadrants sutures to completely mature the ostomy. Hemostasis was checked. A Coloplast was then placed. At the left groin, a small 5 mm defect was found and closed using umang. The wound was explored revealing a pocket of 8 cm medial to lateral and 4 cm superior to inferior subcutaneous pocket of the left groin. The wound eroded to the muscle. The wound was debrided using water jet pulse lavage 3 L normal saline until clear. The skin defect was 4 cm x 2 cm. A vacuum system was prepared to close the space. An universal incisional wound VAC system was applied along the midline and extended to the left groin. At the end of the procedure, needle, sponge, and instrument count had been verified correct by surgical nurse practitioner. The patient's family was updated on level of care.
[2023-12-06 22:18] LABS: ALT 10 U/L (4-34); AST 25 U/L (14-36); African American GFR (CKD) 82 (>60 ml/min/1.73 sqM); Albumin 1.5 g/dL (3.5-5.0); Albumin/Globulin Ratio 0.6; Alkaline Phosphatase 132 U/L (38-126); Anion Gap 3 mmol/L; Blood Urea Nitrogen 15 mg/dL (7-17); Calcium 7.5 mg/dL (8.4-10.2); Carbon Dioxide 19 mmol/L (22-30); Chloride 121 mmol/L (98-107); Globulin 2.4 g/dL; Glucose 105 mg/dL (74-99); Magnesium 1.7 mg/dL (1.6-2.3); Non-African American GFR(CKD) 71 (>60 ml/min/1.73 sqM); Phosphorus 3.4 mg/dL (2.5-4.5); Potassium 3.2 mmol/L (3.5-5.1); Sodium 143 mmol/L (137-145); Total Bilirubin 0.4 mg/dL (0.2-1.3); Total Protein 3.9 g/dL (6.3-8.2)
[2023-12-06] MEDS ORDERED: Potassium Replacement Protocol 1 EACH MISC MISCELLANE PRN (22:34)
[2023-12-06] MEDS: POTASSIUM CHLORIDE 20 MEQ in WATER FOR INJECTION 1 100ML.BAG IVPB SCH (22:54)
[2023-12-06] MEDS: MAGNESIUM SULFATE-D5W PMX 1 GM in DEXTROSE/WATER 1 100ML.BAG IVPB ONE (22:54)
[2023-12-07] MEDS: NOREPINEPHRINE 4 MG in SODIUM CHLORIDE 0.9% 250 ML IV SCH (00:06)
[2023-12-07] MEDS: CEFEPIME 2 GM in SODIUM CHLORIDE 0.9% 100 ML IVPB SCH (00:30)
[2023-12-07 01:21] LABS: Glucose,Whole Blood 115 mg/dL (70-110)
[2023-12-07 05:54] LABS: ABG Base Excess -6.8 mmol/L; ABG HCO3 18 mmol/L (21-25); ABG Oxygen Saturation 97.4 % (94-97); ABG PCO2 31 mmHg (35-45); ABG PH 7.38 (7.35-7.45); ABG PO2 119 mmHg (83-108); ABG TCO2 19 mmol/L (19-24)
[2023-12-07 06:05] LABS: Glucose,Whole Blood 96 mg/dL (70-110)
--- NOTE | 2023-12-07 06:05 | XR ---
EXAMINATION TYPE: XR chest 1V portable DATE OF EXAM: 12/07/2023 CLINICAL HISTORY: Difficulty breathing progress study. TECHNIQUE: Single AP portable semiupright view of the chest is obtained. COMPARISON: Chest x-ray from one day earlier FINDINGS: There is new endotracheal tube terminating at level of the clavicles approximately 4 to 5 c m above the odilon. There is new orogastric tube projecting below diaphragm. There is stable right in ternal jugular central venous catheter. Stable left-sided PICC line. Stable small bilateral pleural effusions. Cardiac silhouette size stable and within normal limits. Os seous structures are intact. IMPRESSION: 1. New endotracheal and orogastric tubes satisfactory position. 2. Small bilateral pleural effusions with associated left basilar opacity favoring compressive atelec tasis redemonstrated. No significant change from one day earlier.
[2023-12-07 06:14] LABS: Allen Test Performed? no
[2023-12-07 07:20] LABS: Anisocytosis Moderate; HCT 34.7 % (34.0-46.0); HGB 10.7 gm/dL (11.4-16.0); Hypochromasia Marked; MCHC 30.7 g/dL (31.0-37.0); MCV 81.4 fL (80.0-100.0); Mean Platelet Volume 6.9; Microcytosis Slight; Platelet Count 499 k/uL (150-450); Poikilocytosis Moderate; RBC 4.26 m/uL (3.80-5.40); RDW 20.6 % (11.5-15.5); WBC 37.4 k/uL (3.8-10.6)
[2023-12-07 07:43] LABS: Anisocytosis (M) Present; Hypochromasia (M) Present; Lymphocytes # (M) 1.12 k/uL (1.0-4.8); Monocytes # (M) 0.37 k/uL (0-1.0); Neutrophils % (M) 96 %; Nucleated Red Blood Cells 0 /100 WBC (0-0); Polychromasia Present; Total Cells Counted 100
[2023-12-07 08:01] LABS: African American GFR (CKD) 80 (>60 ml/min/1.73 sqM); Anion Gap 4 mmol/L; Blood Urea Nitrogen 16 mg/dL (7-17); Calcium 7.3 mg/dL (8.4-10.2); Carbon Dioxide 17 mmol/L (22-30); Chloride 122 mmol/L (98-107); Glucose 98 mg/dL (74-99); Magnesium 1.9 mg/dL (1.6-2.3); Non-African American GFR(CKD) 69 (>60 ml/min/1.73 sqM); Potassium 3.6 mmol/L (3.5-5.1); Sodium 143 mmol/L (137-145)
--- NOTE | 2023-12-07 08:03 | P.PN ---
Subjective Progress Note Date: 12/07/23 This is a 74-year-old female patient who was brought into the intensive care unit after an extensive abdominal surgery. The patient underwent exploratory laparotomy and sigmoid colectomy and diverging colostomy. The patient was emergently taken to the operating room this afternoon as the patient was be coming hypotensive and she had developed persistent leukocytosis intermittent fevers consistent with sepsis and septic shock. The patient was also becoming hypotensive despite being resuscitated with IV fluids and the patient preoperatively received a total of 3 L of IV fluids. An emergent surgical exploration was indicated. 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 At this point in time, the patient is sedated and the patient is currently on propofol. She is intubated on mechanical ventilator and she is on assist- control mode at a rate of 12, tidal volume of 400, FiO2 of 100% and a PEEP of 5. Chest x-ray shows a right IJ triple-lumen catheter. ET tube is in good loc ation. No airspace disease or consolidation. The blood gases showed a pH of 7.22 with a pCO2 of 51 and pO2 of 255. The patient is currently on no pressors and urine output is quite diminished in the order of 10 to 20 cc since arrival from the operating room. The patient is on IV cefepime and Flagyl. Received a total of 2 unit PRBC intraop 12/07/2023, I am seeing the patient for a follow-up in the intensive care unit. The patient is currently postop day #1. The patient remains intubated on the mechanical ventilator. This morning, the patient is on propofol which is running at 30 mcg/kg/min. She was resuscitated with IV fluids. She was maintained on normal saline at rate of 150 cc an hour and norepinephrine was also added overnight and currently norepinephrine is running at 0.07 mcg/kg/min. Her urine output is in the order of 10 to 20 cc an hour. Overall fluid balance over the past 24 hours has been +3.6 L. The patient remains on a combination of cefepime and Flagyl. The blood work from today shows a WBC count of 37.4, hemoglobin 10.7 and platelet count of 499. BUN is at 15 with a creatinine of 0.8. Sodium is at 143 from yesterday. Repeat electrolytes are still pending for now. Meanwhile, the patient remains intubated on mechanical ventilator. This morning, she is on assist-control mode at rate of 24, tidal volume of 400, FiO2 is at 55% with a PEEP of 5. The blood gas shows a pH of 7.38 with a pCO2 of 31 and pO2 of 119. Review of the chest x-ray from this morning shows adequate positioning of the orotracheal tube. This may need to be pushed in by 1 cm. The patient has a small atelectasis/left-sided pleural effusion. Otherwise, the right lung is essentially clear at this point in time. Antibiotic coverage includes a combination of cefepime and Flagyl. The patient will need Dilaudid for pain control. She is on heparin subcu for DVT prophylaxis. She is resting comfortably in bed. No other significant events overnight. Currently she is afebrile. The wound VAC is in place. Colostomy site is not fully functional at this point in time. Abdomen is soft. Objective - Vital Signs Vital signs: Vital Signs Temp 97.3 F L 12/07/23 00:00 Pulse 86 12/07/23 07:00 Resp 24 12/07/23 07:00 BP 92/60 12/07/23 07:00 Pulse Ox 98 12/07/23 07:00 FiO2 55 12/07/23 07:30 Intake & Output 12/06/23 12/07/23 12/07/23 18:59 06:59 18:59 Intake Total 1220 3433.647 Output Total 600 418 Balance 620 3015.647 Weight 81.647 kg 90.7 kg Intake: IV 600 3249 Cefepime 2 gm In Sodium 100 Chloride 0.9% 100 ml @ 25 mls/hr IVPB Q8HR [facility] Rx# :[id number] Magnesium Sulfate-D5w Pmx 100 1 gm In Dextrose/Water 1 100ml.bag @ 100 mls/hr IVPB ONCE ONE Rx#: [id number] Potassium Chloride 20 meq 200 In Water For Injection 1 100ml.bag @ 50 mls/hr IVPB Q2H [facility] Rx#: [id number] Sodium Chloride 0.9% 1, 1650 000 ml @ 150 mls/hr IV . Q6H40M [facility] Rx#:[id number] Sodium Chloride 0.9% 1, 999 000 ml @ 999 mls/hr IV . Q1H1M [facility] Rx#:[id number] metroNIDAZOLE-NS PMX 500 200 mg In Saline 1 100ml.bag @ 100 mls/hr IVPB Q8H [facility] Rx#:[id number] Intake, IV Titration 184.647 Amount Norepinephrine 4 mg In 22.501 Sodium Chloride 0.9% 250 ml @ 0.03 MCG/KG/MIN 9. 332 mls/hr IV .Q24H [facility] Rx#:[id number] propofoL 1,000 mg In 162.146 Empty Bag 1 bag @ 15 MCG/ KG/MIN 7.348 mls/hr IV . [id number] [facility] Rx#:[id number] Blood Product 620 Rc As-1 Unit 310 [id number] Rc As-1 Unit 310 [id number] Output: Urine 600 318 Estimated Blood Loss 100 Other: Voiding Method Indwelling Catheter Indwelling Catheter ABP, PAP, CO, CI - Last Documented Arterial Blood Pressure 50/39 - Exam General appearance the patient is sedated and patient is calm. NG tube are both in place and the patient has been adequately sedated with propofol. Head exam was generally normal. There was no scleral icterus or corneal arcus. Mucous membranes were moist. Neck was supple and without jugular venous distension, thyromegaly, or carotid bruits. Carotids were easily palpable bilaterally. There was no adenopathy. Patient has a right IJ triple-lumen catheter in place. Lungs were clear to auscultation and percussion, and with normal diaphragmatic excursion. No wheezes or rales were noted. Cardiac exam revealed the PMI to be normally situated and sized. The rhythm was regular and no extrasystoles were noted during several minutes of auscultation. The first and second heart sounds were normal and physiologic splitting of the second heart sound was noted. There were no murmurs, rubs, clicks, or gallops. Abdomen is soft. Bowel sounds are hypoactive/absent. There is a mid abdominal wound and the surgical scar is clean and the wound VAC has been applied. No direct tenderness. No rebound tenderness. Extremities reveal a below-knee amputation on the right. The patient also has a wound in the left groin at the site of the enterocutaneous fistula and the wound has been debrided. Pulses are present in the present limbs. No cyanosis or clubbing. Neurologically, the patient is sedated. - Labs CBC & Chem 7: 12/07/23 06:26 12/06/23 21:21 Labs: Abnormal Lab Results - Last 24 Hours (Table) 12/04/23 12/06/23 12/06/23 Range/Units 18:28 06:05 11:35 WBC (3.8-10.6) k/uL Hgb (11.4-16.0) gm/dL MCHC (31.0-37.0) g/dL RDW (11.5-15.5) % Plt Count (150-450) k/uL Neutrophils # (1.3-7.7) k/uL Neutrophils # (Manual) (1.3-7.7) k/uL Lymphocytes # (1.0-4.8) k/uL ABG pH (7.35-7.45) ABG pCO2 (35-45) mmHg ABG pO2 (83-108) mmHg ABG HCO3 (21-25) mmol/L ABG O2 Saturation (94-97) % Potassium 3.4 L (3.5-5.5) mmol/L Chloride 113 H (96-109) mmol/L Carbon Dioxide 19.1 L (21.6-31.8) mmol/L Glucose 116 H (70-110) mg/dL POC Glucose (mg/dL) 126 H (70-110) mg/dL Calcium 7.3 L (8.7-10.3) mg/dL Alkaline Phosphatase (38-126) U/L Total Protein (6.3-8.2) g/dL Albumin (3.5-5.0) g/dL Crossmatch See Detail 12/06/23 12/06/23 12/06/23 Range/Units 16:36 19:50 20:32 WBC (3.8-10.6) k/uL Hgb (11.4-16.0) gm/dL MCHC (31.0-37.0) g/dL RDW (11.5-15.5) % Plt Count (150-450) k/uL Neutrophils # (1.3-7.7) k/uL Neutrophils # (Manual) (1.3-7.7) k/uL Lymphocytes # (1.0-4.8) k/uL ABG pH 7.22 L (7.35-7.45) ABG pCO2 29 L 51 H (35-45) mmHg ABG pO2 73 L 255 H (83-108) mmHg ABG HCO3 20 L (21-25) mmol/L ABG O2 Saturation 98.1 H (94-97) % Potassium (3.5-5.5) mmol/L Chloride (96-109) mmol/L Carbon Dioxide (21.6-31.8) mmol/L Glucose (70-110) mg/dL POC Glucose (mg/dL) 113 H (70-110) mg/dL Calcium (8.7-10.3) mg/dL Alkaline Phosphatase (38-126) U/L Total Protein (6.3-8.2) g/dL Albumin (3.5-5.0) g/dL Crossmatch 12/06/23 12/06/23 12/07/23 Range/Units 21:21 21:21 01:19 WBC 29.0 H (3.8-10.6) k/uL Hgb 10.8 L (11.4-16.0) gm/dL MCHC 30.7 L (31.0-37.0) g/dL RDW 20.2 H (11.5-15.5) % Plt Count 547 H (150-450) k/uL Neutrophils # 27.8 H (1.3-7.7) k/uL Neutrophils # (Manual) (1.3-7.7) k/uL Lymphocytes # 0.8 L (1.0-4.8) k/uL ABG pH (7.35-7.45) ABG pCO2 (35-45) mmHg ABG pO2 (83-108) mmHg ABG HCO3 (21-25) mmol/L ABG O2 Saturation (94-97) % Potassium 3.2 L (3.5-5.5) mmol/L Chloride 121 H (96-109) mmol/L Carbon Dioxide 19 L (21.6-31.8) mmol/L Glucose 105 H (70-110) mg/dL POC Glucose (mg/dL) 115 H (70-110) mg/dL Calcium 7.5 L (8.7-10.3) mg/dL Alkaline Phosphatase 132 H (38-126) U/L Total Protein 3.9 L (6.3-8.2) g/dL Albumin 1.5 L (3.5-5.0) g/dL Crossmatch 12/07/23 12/07/23 Range/Units 05:53 06:26 WBC 37.4 H (3.8-10.6) k/uL Hgb 10.7 L (11.4-16.0) gm/dL MCHC 30.7 L (31.0-37.0) g/dL RDW 20.6 H (11.5-15.5) % Plt Count 499 H (150-450) k/uL Neutrophils # (1.3-7.7) k/uL Neutrophils # (Manual) 35.90 H (1.3-7.7) k/uL Lymphocytes # (1.0-4.8) k/uL ABG pH (7.35-7.45) ABG pCO2 31 L (35-45) mmHg ABG pO2 119 H (83-108) mmHg ABG HCO3 18 L (21-25) mmol/L ABG O2 Saturation 97.4 H (94-97) % Potassium (3.5-5.5) mmol/L Chloride (96-109) mmol/L Carbon Dioxide (21.6-31.8) mmol/L Glucose (70-110) mg/dL POC Glucose (mg/dL) (70-110) mg/dL Calcium (8.7-10.3) mg/dL Alkaline Phosphatase (38-126) U/L Total Protein (6.3-8.2) g/dL Albumin (3.5-5.0) g/dL Crossmatch Microbiology - Last 24 Hours (Table) 12/04/23 16:00 Blood Culture Gram Stain - Preliminary Blood Blood Culture - Preliminary 12/04/23 15:45 Blood Culture - Preliminary Blood 12/04/23 23:44 Urine Culture - Preliminary Urine,Catheterized Gram Neg Bacilli Assessment and Plan Plan: Septic shock secondary to complication of a perforated diverticulitis and development of a colocutaneous fistula. Patient underwent a total laparotomy, colectomy and diverting colostomy and debridement of a cutaneous fistula. Patient is currently postop day #1. This was a complication of a sigmoid diverticulitis. Noted the patient had developed colocutaneous fistula and the patient had a complicated left groin wound that was around 4 cm in size and the fistula was taken down intraoperatively. Patient also underwent a peritoneal la vage with a total of 1 L, descending colostomy creation and a Magaña's pouch. Currently the patient has a incisional wound VAC in place. Sepsis secondary to above, adequately resuscitated and the patient is currently on low-dose norepinephrine. The patient is also on normal saline at rate of 150 cc an hour Leukocytosis, secondary to above Acute hypercapnic/hypoxic respiratory failure, and the patient has been kept intubated postop. Chest x-ray is showing a small atelectasis/effusion left lung base. Blood gas shows improvement in oxygenation and improvement in the acid- base status. Previous right below-knee amputation Unstageable pressure ulcer on the left buttocks with significant eschar in place with tunneling noted up to 3 cm in size. Hydropic gallbladder with multiple gallstones Left adrenal nodule 2.1 cm Right adrenal nodule 1.3 cm Left renal cortical cyst measuring 4.4 cm Mild generalized anasarca Plan Continue vent support and no ventilator changes for today. keep the patient sedated on propofol Give the patient another bolus of normal saline and start normal saline at rate of 150 cc an hour r Use norepinephrine i for hemodynamic support continue cefepime and Flagyl combination Monitor cultures including blood culture Monitor the white cell count Monitor intra-abdominal cultures Keep NG tube in place to monitor the output Monitor functionality of the colostomy and keep the wound VAC in place Add Dilaudid for pain control 1 mg every 3 hours Not ready for any weaning at this point in time. Will discuss nutrition with general surgery The patient has a right IJ triple-lumen catheter in the left upper extremity PICC line Wound care to the unstageable left coccygeal/buttocks and the patient will be having chronic gel applied with subsequent debridement and possible wound VAC to that area Heparin subcu for DVT prophylaxis IV Protonix Will continue to follow along with the surgical team. The patient will be kept in the ICU for now. Critical care evaluation >30 min Time with Patient: Greater than 30
[2023-12-07] MEDS: MAGNESIUM SULFATE-D5W PMX 1 GM in DEXTROSE/WATER 1 100ML.BAG IVPB ONE (10:07)
[2023-12-07] MEDS: POTASSIUM CHLORIDE 10 MEQ in WATER FOR INJECTION 1 100ML.BAG IVPB SCH (10:08)
[2023-12-07 10:27] LABS: Glucose,Whole Blood 121 mg/dL (70-110)
--- NOTE | 2023-12-07 11:42 | P.PN ---
Subjective Progress Note Date: 12/07/23 No acute events overnight. Patient remains intubated and sedated on pressor support. Fevers documented per nursing staff Objective - Vital Signs Vital signs: Vital Signs Temp 97.6 F 12/07/23 08:00 Pulse 101 H 12/07/23 11:00 Resp 17 12/07/23 11:00 BP 94/70 12/07/23 11:00 Pulse Ox 97 12/07/23 11:00 FiO2 50 12/07/23 11:25 Intake & Output 12/06/23 12/07/23 12/07/23 18:59 06:59 18:59 Intake Total 1220 3433.647 1126.574 Output Total 600 418 59 Balance 620 3015.647 1067.574 Weight 81.647 kg 90.7 kg Intake: IV 600 3249 900 Cefepime 2 gm In Sodium 100 Chloride 0.9% 100 ml @ 25 mls/hr IVPB Q8HR [facility] Rx# :[id number] Magnesium Sulfate-D5w Pmx 100 100 1 gm In Dextrose/Water 1 100ml.bag @ 100 mls/hr IVPB ONCE ONE Rx#: [id number] Potassium Chloride 20 meq 200 200 In Water For Injection 1 100ml.bag @ 50 mls/hr IVPB Q2H [facility] Rx#: [id number] Sodium Chloride 0.9% 1, 1650 600 000 ml @ 150 mls/hr IV . Q6H40M [facility] Rx#:[id number] Sodium Chloride 0.9% 1, 999 000 ml @ 999 mls/hr IV . Q1H1M [facility] Rx#:[id number] metroNIDAZOLE-NS PMX 500 200 mg In Saline 1 100ml.bag @ 100 mls/hr IVPB Q8H [facility] Rx#:[id number] Intake, IV Titration 184.647 226.574 Amount Norepinephrine 4 mg In 22.501 168.035 Sodium Chloride 0.9% 250 ml @ 0.03 MCG/KG/MIN 9. 332 mls/hr IV .Q24H [facility] Rx#:[id number] propofoL 1,000 mg In 162.146 58.539 Empty Bag 1 bag @ 15 MCG/ KG/MIN 7.348 mls/hr IV . [id number] [facility] Rx#:[id number] Blood Product 620 Rc As-1 Unit 310 [id number] Rc As-1 Unit 310 [id number] Output: Urine 600 318 59 Estimated Blood Loss 100 Other: Voiding Method Indwelling Catheter Indwelling Catheter ABP, PAP, CO, CI - Last Documented Arterial Blood Pressure 77/74 - Exam Gen: Intubated and Sedated Pulm: mechincally ventillated Cardio: RRR on telemetry Abd: soft, moderately distended, no wincing to palpation. No guarding/rebound/rigidity Incisions: C/D/I no erythema or drainage seen Ostomy: pink and patent, small amount of stool seen, no gas appreciated in ostomy appliance Gill: intact producing dark yellow UOP Extrem: no edema seen - Labs CBC & Chem 7: 12/07/23 06:26 12/07/23 06:26 Labs: Abnormal Lab Results - Last 24 Hours (Table) 12/04/23 12/06/23 12/06/23 Range/Units 18:28 11:35 16:36 WBC (3.8-10.6) k/uL Hgb (11.4-16.0) gm/dL MCHC (31.0-37.0) g/dL RDW (11.5-15.5) % Plt Count (150-450) k/uL Neutrophils # (1.3-7.7) k/uL Neutrophils # (Manual) (1.3-7.7) k/uL Lymphocytes # (1.0-4.8) k/uL ABG pH (7.35-7.45) ABG pCO2 29 L (35-45) mmHg ABG pO2 73 L (83-108) mmHg ABG HCO3 20 L (21-25) mmol/L ABG O2 Saturation (94-97) % Potassium (3.5-5.1) mmol/L Chloride (98-107) mmol/L Carbon Dioxide (22-30) mmol/L Glucose (74-99) mg/dL POC Glucose (mg/dL) 126 H (70-110) mg/dL Calcium (8.4-10.2) mg/dL Alkaline Phosphatase (38-126) U/L Total Protein (6.3-8.2) g/dL Albumin (3.5-5.0) g/dL Crossmatch See Detail 12/06/23 12/06/23 12/06/23 Range/Units 19:50 20:32 21:21 WBC 29.0 H (3.8-10.6) k/uL Hgb 10.8 L (11.4-16.0) gm/dL MCHC 30.7 L (31.0-37.0) g/dL RDW 20.2 H (11.5-15.5) % Plt Count 547 H (150-450) k/uL Neutrophils # 27.8 H (1.3-7.7) k/uL Neutrophils # (Manual) (1.3-7.7) k/uL Lymphocytes # 0.8 L (1.0-4.8) k/uL ABG pH 7.22 L (7.35-7.45) ABG pCO2 51 H (35-45) mmHg ABG pO2 255 H (83-108) mmHg ABG HCO3 (21-25) mmol/L ABG O2 Saturation 98.1 H (94-97) % Potassium (3.5-5.1) mmol/L Chloride (98-107) mmol/L Carbon Dioxide (22-30) mmol/L Glucose (74-99) mg/dL POC Glucose (mg/dL) 113 H (70-110) mg/dL Calcium (8.4-10.2) mg/dL Alkaline Phosphatase (38-126) U/L Total Protein (6.3-8.2) g/dL Albumin (3.5-5.0) g/dL Crossmatch 12/06/23 12/07/23 12/07/23 Range/Units 21:21 01:19 05:53 WBC (3.8-10.6) k/uL Hgb (11.4-16.0) gm/dL MCHC (31.0-37.0) g/dL RDW (11.5-15.5) % Plt Count (150-450) k/uL Neutrophils # (1.3-7.7) k/uL Neutrophils # (Manual) (1.3-7.7) k/uL Lymphocytes # (1.0-4.8) k/uL ABG pH (7.35-7.45) ABG pCO2 31 L (35-45) mmHg ABG pO2 119 H (83-108) mmHg ABG HCO3 18 L (21-25) mmol/L ABG O2 Saturation 97.4 H (94-97) % Potassium 3.2 L (3.5-5.1) mmol/L Chloride 121 H (98-107) mmol/L Carbon Dioxide 19 L (22-30) mmol/L Glucose 105 H (74-99) mg/dL POC Glucose (mg/dL) 115 H (70-110) mg/dL Calcium 7.5 L (8.4-10.2) mg/dL Alkaline Phosphatase 132 H (38-126) U/L Total Protein 3.9 L (6.3-8.2) g/dL Albumin 1.5 L (3.5-5.0) g/dL Crossmatch 12/07/23 12/07/23 12/07/23 Range/Units 06:26 06:26 10:26 WBC 37.4 H (3.8-10.6) k/uL Hgb 10.7 L (11.4-16.0) gm/dL MCHC 30.7 L (31.0-37.0) g/dL RDW 20.6 H (11.5-15.5) % Plt Count 499 H (150-450) k/uL Neutrophils # (1.3-7.7) k/uL Neutrophils # (Manual) 35.90 H (1.3-7.7) k/uL Lymphocytes # (1.0-4.8) k/uL ABG pH (7.35-7.45) ABG pCO2 (35-45) mmHg ABG pO2 (83-108) mmHg ABG HCO3 (21-25) mmol/L ABG O2 Saturation (94-97) % Potassium (3.5-5.1) mmol/L Chloride 122 H (98-107) mmol/L Carbon Dioxide 17 L (22-30) mmol/L Glucose (74-99) mg/dL POC Glucose (mg/dL) 121 H (70-110) mg/dL Calcium 7.3 L (8.4-10.2) mg/dL Alkaline Phosphatase (38-126) U/L Total Protein (6.3-8.2) g/dL Albumin (3.5-5.0) g/dL Crossmatch Microbiology - Last 24 Hours (Table) 12/04/23 16:00 Blood Culture Gram Stain - Preliminary Blood Blood Culture - Preliminary 12/04/23 15:45 Blood Culture - Preliminary Blood 12/04/23 23:44 Urine Culture - Preliminary Urine,Catheterized Gram Neg Bacilli Assessment and Plan Assessment: Patient is a 73 year old female who is s/p Gabriel's procedure for perforated diverticulitis Plan: -NPO -IVF -IV abx -PRN pain and nausea control -Wean pressor support as tolerated -DVT/GI PPx -Wean vent as tolerated Cooper Westfall MD General Surgery
--- NOTE | 2023-12-07 13:08 | P.PN ---
Subjective Progress Note Date: 12/07/23 Principal diagnosis: Reason for follow-up is complicated diverticulitis with colocutaneous fistula Patient is a 73-year-old female who was brought into the ER at [facility] for the patient complaining of generalized weakness patient noticed to have sacral pressure ulcer and also complicate diverticulitis with a fistula to the left lower abdominal wall.Patient was taken to the OR on 12/06/2023 and this patient was status post exploratory laparotomy with sigmoid colectomy takedown of the colocutaneous fistula left inguinal hernia repair and peritoneal lavage. On today's visit that is 12/07/2023 the patient is on the vent postsurgery the patient is afebrile patient is currently requiring pressor to maintain her blood pressure patient is on 50% FiO2 no significant purulent secretions through the ET or any other changes reported by the nursing staff Patient did have a white count of 37.4 creatinine 0.85 blood culture with gram- positive bacilli Objective - Vital Signs Vital signs: Vital Signs Temp 96.6 F L 12/07/23 12:00 Pulse 82 12/07/23 13:00 Resp 25 H 12/07/23 13:00 BP 114/52 12/07/23 13:00 Pulse Ox 96 12/07/23 13:00 FiO2 85 12/07/23 12:00 Intake & Output 12/06/23 12/07/23 12/07/23 18:59 06:59 18:59 Intake Total 1220 3433.647 1621.899 Output Total 600 418 87 Balance 620 3015.647 1534.899 Weight 81.647 kg 90.7 kg Intake: IV 600 3249 1300 Cefepime 2 gm In Sodium 100 Chloride 0.9% 100 ml @ 25 mls/hr IVPB Q8HR [facility] Rx# :[id number] Magnesium Sulfate-D5w Pmx 100 100 1 gm In Dextrose/Water 1 100ml.bag @ 100 mls/hr IVPB ONCE ONE Rx#: [id number] Potassium Chloride 20 meq 200 200 In Water For Injection 1 100ml.bag @ 50 mls/hr IVPB Q2H [facility] Rx#: [id number] Sodium Chloride 0.9% 1, 1650 900 000 ml @ 150 mls/hr IV . Q6H40M [facility] Rx#:[id number] Sodium Chloride 0.9% 1, 999 000 ml @ 999 mls/hr IV . Q1H1M [facility] Rx#:[id number] metroNIDAZOLE-NS PMX 500 200 100 mg In Saline 1 100ml.bag @ 100 mls/hr IVPB Q8H [facility] Rx#:[id number] Intake, IV Titration 184.647 321.899 Amount Norepinephrine 4 mg In 22.501 224.496 Sodium Chloride 0.9% 250 ml @ 0.03 MCG/KG/MIN 9. 332 mls/hr IV .Q24H [facility] Rx#:[id number] propofoL 1,000 mg In 162.146 97.403 Empty Bag 1 bag @ 15 MCG/ KG/MIN 7.348 mls/hr IV . [id number] [facility] Rx#:[id number] Blood Product 620 Rc As-1 Unit 310 [id number] Rc As-1 Unit 310 [id number] Output: Urine 600 318 87 Estimated Blood Loss 100 Other: Voiding Method Indwelling Catheter Indwelling Catheter ABP, PAP, CO, CI - Last Documented Arterial Blood Pressure 44/44 - Exam GENERAL DESCRIPTION: An elderly female lying in bed in no distress RESPIRATORY SYSTEM: Unlabored breathing , decreased breath sounds at bases HEART: S1 S2 regular rate and rhythm , ABDOMEN: Soft , no tenderness EXTREMITIES: No edema feet - Labs CBC & Chem 7: 12/07/23 06:26 12/07/23 06:26 Labs: Abnormal Lab Results - Last 24 Hours (Table) 12/04/23 12/06/23 12/06/23 Range/Units 18:28 16:36 19:50 WBC (3.8-10.6) k/uL Hgb (11.4-16.0) gm/dL MCHC (31.0-37.0) g/dL RDW (11.5-15.5) % Plt Count (150-450) k/uL Neutrophils # (1.3-7.7) k/uL Neutrophils # (Manual) (1.3-7.7) k/uL Lymphocytes # (1.0-4.8) k/uL ABG pH (7.35-7.45) ABG pCO2 29 L (35-45) mmHg ABG pO2 73 L (83-108) mmHg ABG HCO3 20 L (21-25) mmol/L ABG O2 Saturation (94-97) % Potassium (3.5-5.1) mmol/L Chloride (98-107) mmol/L Carbon Dioxide (22-30) mmol/L Glucose (74-99) mg/dL POC Glucose (mg/dL) 113 H (70-110) mg/dL Calcium (8.4-10.2) mg/dL Alkaline Phosphatase (38-126) U/L Total Protein (6.3-8.2) g/dL Albumin (3.5-5.0) g/dL Crossmatch See Detail 12/06/23 12/06/23 12/06/23 Range/Units 20:32 21:21 21:21 WBC 29.0 H (3.8-10.6) k/uL Hgb 10.8 L (11.4-16.0) gm/dL MCHC 30.7 L (31.0-37.0) g/dL RDW 20.2 H (11.5-15.5) % Plt Count 547 H (150-450) k/uL Neutrophils # 27.8 H (1.3-7.7) k/uL Neutrophils # (Manual) (1.3-7.7) k/uL Lymphocytes # 0.8 L (1.0-4.8) k/uL ABG pH 7.22 L (7.35-7.45) ABG pCO2 51 H (35-45) mmHg ABG pO2 255 H (83-108) mmHg ABG HCO3 (21-25) mmol/L ABG O2 Saturation 98.1 H (94-97) % Potassium 3.2 L (3.5-5.1) mmol/L Chloride 121 H (98-107) mmol/L Carbon Dioxide 19 L (22-30) mmol/L Glucose 105 H (74-99) mg/dL POC Glucose (mg/dL) (70-110) mg/dL Calcium 7.5 L (8.4-10.2) mg/dL Alkaline Phosphatase 132 H (38-126) U/L Total Protein 3.9 L (6.3-8.2) g/dL Albumin 1.5 L (3.5-5.0) g/dL Crossmatch 12/07/23 12/07/23 12/07/23 Range/Units 01:19 05:53 06:26 WBC 37.4 H (3.8-10.6) k/uL Hgb 10.7 L (11.4-16.0) gm/dL MCHC 30.7 L (31.0-37.0) g/dL RDW 20.6 H (11.5-15.5) % Plt Count 499 H (150-450) k/uL Neutrophils # (1.3-7.7) k/uL Neutrophils # (Manual) 35.90 H (1.3-7.7) k/uL Lymphocytes # (1.0-4.8) k/uL ABG pH (7.35-7.45) ABG pCO2 31 L (35-45) mmHg ABG pO2 119 H (83-108) mmHg ABG HCO3 18 L (21-25) mmol/L ABG O2 Saturation 97.4 H (94-97) % Potassium (3.5-5.1) mmol/L Chloride (98-107) mmol/L Carbon Dioxide (22-30) mmol/L Glucose (74-99) mg/dL POC Glucose (mg/dL) 115 H (70-110) mg/dL Calcium (8.4-10.2) mg/dL Alkaline Phosphatase (38-126) U/L Total Protein (6.3-8.2) g/dL Albumin (3.5-5.0) g/dL Crossmatch 12/07/23 12/07/23 Range/Units 06:26 10:26 WBC (3.8-10.6) k/uL Hgb (11.4-16.0) gm/dL MCHC (31.0-37.0) g/dL RDW (11.5-15.5) % Plt Count (150-450) k/uL Neutrophils # (1.3-7.7) k/uL Neutrophils # (Manual) (1.3-7.7) k/uL Lymphocytes # (1.0-4.8) k/uL ABG pH (7.35-7.45) ABG pCO2 (35-45) mmHg ABG pO2 (83-108) mmHg ABG HCO3 (21-25) mmol/L ABG O2 Saturation (94-97) % Potassium (3.5-5.1) mmol/L Chloride 122 H (98-107) mmol/L Carbon Dioxide 17 L (22-30) mmol/L Glucose (74-99) mg/dL POC Glucose (mg/dL) 121 H (70-110) mg/dL Calcium 7.3 L (8.4-10.2) mg/dL Alkaline Phosphatase (38-126) U/L Total Protein (6.3-8.2) g/dL Albumin (3.5-5.0) g/dL Crossmatch Microbiology - Last 24 Hours (Table) 12/04/23 16:00 Blood Culture Gram Stain - Preliminary Blood Blood Culture - Preliminary 12/04/23 15:45 Blood Culture - Preliminary Blood 12/04/23 23:44 Urine Culture - Preliminary Urine,Catheterized Gram Neg Bacilli Assessment and Plan (1) Diverticulitis of intestine, part unspecified, without perforation or abscess without bleeding Current Visit: Yes Status: Acute Code(s): K57.92 - DVTRCLI OF INTEST, PART UNSP, W/O PERF OR ABSCESS W/O BLEED SNOMED Code(s): 163672765 (2) Leukocytosis Current Visit: Yes Status: Acute Code(s): D72.829 - ELEVATED WHITE BLOOD CELL COUNT, UNSPECIFIED SNOMED Code(s): 546227299 Plan: 1patient with complicated diverticulitis with evidence of fistulous communication to the skin left lower quadrant area and concern for possible extension to the bladder, will need to cover for the polymicrobial jessie associated with such condition including enteric gram-negative both aerobes and anaerobes 2-patient also have a pressure ulcer but no significant surrounding cellulitis, wound care has been consulted continue local wound care per them 3-patient is status post extensive surgery including 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, patient to continue with cefepime and Flagyl and monitor clinical course closely Prognosis guarded Dictation was produced using [employer] dictation software. please excuse any grammatical, word or spelling errors. Time with Patient: Less than 30
--- NOTE | 2023-12-07 14:44 | P.PCN ---
Date of Procedure: 12/07/23 Preoperative Diagnosis: Septic shock Postoperative Diagnosis: Same Procedure(s) Performed: Arterial line Anesthesia: local Surgeon: Tre Reeec Estimated Blood Loss (ml): 0 Pathology: none sent Condition: critical Disposition: ICU Operative Findings: Indication: Hemodynamic monitoring. A time-out was completed verifying correct patient, procedure, site, positioning, and implant(s) or special equipment if applicable. Allens test was performed to ensure adequate perfusion. The patients left wrist was prepped and draped in sterile fashion. 1% Lidocaine was used to anesthetize the area. An 18G Arrow arterial line was introduced into the left radial artery. The catheter was threaded over the guide wire and the needle was removed with appropriate pulsatile blood return. Blood loss was minimal. The catheter was then sutured in place to the skin and a sterile dressing applied. Perfusion to the extremity distal to the point of catheter insertion was checked and found to be adequate. The patient tolerated the procedure well and there were no complications.
[2023-12-07] MEDS: HYDROmorphone 1 MG/ML 1 ML SYRINGE IVP PRN (15:24)
[2023-12-07 18:02] LABS: Glucose,Whole Blood 113 mg/dL (70-110)
[2023-12-07 21:08] LABS: Glucose,Whole Blood 118 mg/dL (70-110)
[2023-12-08] MEDS: DEXTROSE 5% IN WATER 100 ML with AMIODARONE 150 MG IV ONE ×2 (00:28→07:47)
[2023-12-08] MEDS: AMIODARONE 360 MG in DEXTROSE 5% IN WATER 200 ML IV ONE (00:40)
[2023-12-08 04:04] LABS: Glucose,Whole Blood 140 mg/dL (70-110)
[2023-12-08 05:13] LABS: ABG Base Excess -11.7 mmol/L; ABG HCO3 15 mmol/L (21-25); ABG PCO2 32 mmHg (35-45); ABG PH 7.28 (7.35-7.45); ABG PO2 105 mmHg (83-108); ABG TCO2 16 mmol/L (19-24)
[2023-12-08 05:52] LABS: African American GFR (CKD) 80 (>60 ml/min/1.73 sqM); Anion Gap 6 mmol/L; Anisocytosis Moderate; Blood Urea Nitrogen 17 mg/dL (7-17); Calcium 7.2 mg/dL (8.4-10.2); Carbon Dioxide 12 mmol/L (22-30); Chloride 125 mmol/L (98-107); Glucose 139 mg/dL (74-99); HCT 39.6 % (34.0-46.0); HGB 12.1 gm/dL (11.4-16.0); Hypochromasia Marked; MCH 25.5 pg (25.0-35.0); MCHC 30.6 g/dL (31.0-37.0); MCV 83.6 fL (80.0-100.0); Magnesium 1.9 mg/dL (1.6-2.3); Mean Platelet Volume 7.1; Microcytosis Slight; Non-African American GFR(CKD) 70 (>60 ml/min/1.73 sqM); Platelet Count 412 k/uL (150-450); Poikilocytosis Moderate; Potassium 3.4 mmol/L (3.5-5.1); RBC 4.74 m/uL (3.80-5.40); RDW 20.8 % (11.5-15.5); Sodium 143 mmol/L (137-145); WBC 33.3 k/uL (3.8-10.6)
[2023-12-08 05:55] LABS: Allen Test Performed? no
[2023-12-08] MEDS: NOREPINEPHRINE 8 MG in SODIUM CHLORIDE 0.9% 250 ML IV SCH (06:04)
[2023-12-08 06:43] LABS: Glucose,Whole Blood 127 mg/dL (70-110)
[2023-12-08] MEDS: POTASSIUM CHLORIDE 20 MEQ in WATER FOR INJECTION 1 100ML.BAG IVPB SCH (06:54)
[2023-12-08] MEDS: MAGNESIUM SULFATE-D5W PMX 1 GM in DEXTROSE/WATER 1 100ML.BAG IVPB ONE ×2 (06:54→20:14)
[2023-12-08] MEDS: AMIODARONE 450 MG in DEXTROSE 5% IN WATER 250 ML IV SCH (06:55)
[2023-12-08 07:41] LABS: Anisocytosis (M) Present; Eosinophils # (M) 0.33 k/uL (0-0.7); Hypochromasia (M) Present; Lymphocytes # (M) 1.67 k/uL (1.0-4.8); Neutrophils % (M) 91 %; Nucleated Red Blood Cells 0 /100 WBC (0-0); Total Cells Counted 100
[2023-12-08] MEDS: SODIUM CHLORIDE 0.9% 1,000 ML IV ONE ×2 (07:45→09:07)
--- NOTE | 2023-12-08 07:55 | P.PN ---
Subjective Progress Note Date: 12/08/23 This is a 74-year-old female patient who was brought into the intensive care unit after an extensive abdominal surgery. The patient underwent exploratory laparotomy and sigmoid colectomy and diverging colostomy. The patient was emergently taken to the operating room this afternoon as the patient was be coming hypotensive and she had developed persistent leukocytosis intermittent fevers consistent with sepsis and septic shock. The patient was also becoming hypotensive despite being resuscitated with IV fluids and the patient preoperatively received a total of 3 L of IV fluids. An emergent surgical exploration was indicated. 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 At this point in time, the patient is sedated and the patient is currently on propofol. She is intubated on mechanical ventilator and she is on assist- control mode at a rate of 12, tidal volume of 400, FiO2 of 100% and a PEEP of 5. Chest x-ray shows a right IJ triple-lumen catheter. ET tube is in good loc ation. No airspace disease or consolidation. The blood gases showed a pH of 7.22 with a pCO2 of 51 and pO2 of 255. The patient is currently on no pressors and urine output is quite diminished in the order of 10 to 20 cc since arrival from the operating room. The patient is on IV cefepime and Flagyl. Received a total of 2 unit PRBC intraop 12/07/2023, I am seeing the patient for a follow-up in the intensive care unit. The patient is currently postop day #1. The patient remains intubated on the mechanical ventilator. This morning, the patient is on propofol which is running at 30 mcg/kg/min. She was resuscitated with IV fluids. She was maintained on normal saline at rate of 150 cc an hour and norepinephrine was also added overnight and currently norepinephrine is running at 0.07 mcg/kg/min. Her urine output is in the order of 10 to 20 cc an hour. Overall fluid balance over the past 24 hours has been +3.6 L. The patient remains on a combination of cefepime and Flagyl. The blood work from today shows a WBC count of 37.4, hemoglobin 10.7 and platelet count of 499. BUN is at 15 with a creatinine of 0.8. Sodium is at 143 from yesterday. Repeat electrolytes are still pending for now. Meanwhile, the patient remains intubated on mechanical ventilator. This morning, she is on assist-control mode at rate of 24, tidal volume of 400, FiO2 is at 55% with a PEEP of 5. The blood gas shows a pH of 7.38 with a pCO2 of 31 and pO2 of 119. Review of the chest x-ray from this morning shows adequate positioning of the orotracheal tube. This may need to be pushed in by 1 cm. The patient has a small atelectasis/left-sided pleural effusion. Otherwise, the right lung is essentially clear at this point in time. Antibiotic coverage includes a combination of cefepime and Flagyl. The patient will need Dilaudid for pain control. She is on heparin subcu for DVT prophylaxis. She is resting comfortably in bed. No other significant events overnight. Currently she is afebrile. The wound VAC is in place. Colostomy site is not fully functional at this point in time. Abdomen is soft. 12/08/2023, the patient remains intubated on mechanical ventilator and she is in the intensive care unit postop day #2. The patient remains on a mechanical ventilator. She is currently on assist-control mode with rate of 24, tidal volume of 400, FiO2 of 50% with a PEEP of 5. The blood gases from this morning showed a pH of 7.28 with a pCO2 of 32 and pO2 of 105. The chest x-ray was reviewed and shows evidence of left basilar effusion/atelectasis. Orotracheal tube is in good location. The patient is triple-lumen catheter in her right IJ. Unfortunately, at around 3 AM this morning, the patient went into A-fib RVR and the patient became profoundly hypotensive. The patient progressively required higher dose of norepinephrine and currently norepinephrine is running at 0.2 mcg /kg/min and her mean arterial pressure is around 64. At the same time, the patient received treatment for her new onset atrial fibrillation. She was given an amiodarone bolus and currently she is on amiodarone at 0.5 mg/min. Based on her underlying hypotension. The patient was thought to hemodynamically unstable with A-fib RVR. The patient received cardioversion on 3 separate occasions using 120 J, 150 J and 200 J. Those attempts failed and the patient remained in atrial fibrillation. Her current heart rate is running at around 150 beats a minute, irregular. Urine output has dropped and the patient is producing only 10 cc an hour. At the same time, the patient's white cell count is up to 33.3 with a hemoglobin 12.1 and platelet count of 412. NG tube is in place. Output is minimal. Abdomen remains soft. The wound VAC is still in place. There is some liquidy stool material in the colostomy bag. No abdominal distention. The patient has been developing progressive edema and upper extremities in the left lower extremity. 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 Rest of the electrolytes show a sodium level of 143, serum bicarb is down to 12, anion gap is at 6, BUN is at 17 with a creatinine of 0.8. Magnesium level is at 1.9 with a calcium level of 7.9. The patient remains on IV cefepime and Flagyl. Urine culture from 12/04/2023 was positive for Klebsiella pneumoniae. She is currently afebrile. Propofol is running at 35 mcg/kg/min. The patient has been adequately sedated for now. Objective - Vital Signs Vital signs: Vital Signs Temp 97.8 F 12/08/23 04:00 Pulse 154 H 12/08/23 07:00 Resp 24 12/08/23 07:00 BP 113/57 12/07/23 19:00 Pulse Ox 90 L 12/08/23 07:00 FiO2 50 12/08/23 07:22 Intake & Output 12/07/23 12/08/23 12/08/23 18:59 06:59 18:59 Intake Total 2556.622 2764.946 355.056 Output Total 167 230 10 Balance 2389.622 2534.946 345.056 Weight 93.8 kg Intake: IV 0 1800 300 Magnesium Sulfate-D5w Pmx 100 1 gm In Dextrose/Water 1 100ml.bag @ 100 mls/hr IVPB ONCE ONE Rx#: [id number] Magnesium Sulfate-D5w Pmx 100 1 gm In Dextrose/Water 1 100ml.bag @ 100 mls/hr IVPB ONCE ONE Rx#: [id number] Potassium Chloride 20 meq 200 In Water For Injection 1 100ml.bag @ 50 mls/hr IVPB Q2H [facility] Rx#: [id number] Potassium Chloride 20 meq 50 In Water For Injection 1 100ml.bag @ 50 mls/hr IVPB Q2H [facility] Rx#: [id number] Sodium Chloride 0.9% 1, 1650 1800 150 000 ml @ 150 mls/hr IV . Q6H40M [facility] Rx#:[id number] metroNIDAZOLE-NS PMX 500 100 mg In Saline 1 100ml.bag @ 100 mls/hr IVPB Q8H [facility] Rx#:[id number] Intake, IV Titration 506.622 964.946 55.056 Amount Norepinephrine 4 mg In 321.448 771.482 Sodium Chloride 0.9% 250 ml @ 0.03 MCG/KG/MIN 9. 332 mls/hr IV .Q24H [facility] Rx#:[id number] Norepinephrine 8 mg In 55.056 Sodium Chloride 0.9% 250 ml @ 0.03 MCG/KG/MIN 5. 445 mls/hr IV .Q24H [facility] Rx#:[id number] propofoL 1,000 mg In 185.174 193.464 Empty Bag 1 bag @ 15 MCG/ KG/MIN 7.348 mls/hr IV . Q84A24L [facility] Rx#:[id number] Output: Urine 167 230 10 Other: Voiding Method Indwelling Catheter Indwelling Catheter ABP, PAP, CO, CI - Last Documented Arterial Blood Pressure 110/53 - Exam General appearance the patient is sedated and patient is calm. NG tube are both in place and the patient has been adequately sedated with propofol. Head exam was generally normal. There was no scleral icterus or corneal arcus. Mucous membranes were moist. Neck was supple and without jugular venous distension, thyromegaly, or carotid bruits. Carotids were easily palpable bilaterally. There was no adenopathy. Patient has a right IJ triple-lumen catheter in place. Lungs were clear to auscultation and percussion, and with normal diaphragmatic excursion. No wheezes or rales were noted. Cardiac exam revealed the PMI to be normally situated and sized. The rhythm was regular and no extrasystoles were noted during several minutes of auscultation. The first and second heart sounds were normal and physiologic splitting of the second heart sound was noted. There were no murmurs, rubs, clicks, or gallops. Abdomen is soft. Bowel sounds are hypoactive/absent. There is a mid abdominal wound and the surgical scar is clean and the wound VAC has been applied. No direct tenderness. No rebound tenderness. Extremities reveal a below-knee amputation on the right. The patient also has a wound in the left groin at the site of the enterocutaneous fistula and the wound has been debrided. Pulses are present in the present limbs. No cyanosis or clubbing. Neurologically, the patient is sedated. - Labs CBC & Chem 7: 12/08/23 05:28 12/08/23 05:28 Labs: Abnormal Lab Results - Last 24 Hours (Table) 12/07/23 12/07/23 12/07/23 Range/Units 06:26 10:26 18:01 WBC (3.8-10.6) k/uL MCHC (31.0-37.0) g/dL RDW (11.5-15.5) % Neutrophils # (Manual) (1.3-7.7) k/uL ABG pH (7.35-7.45) ABG pCO2 (35-45) mmHg ABG HCO3 (21-25) mmol/L ABG Total CO2 (19-24) mmol/L Potassium (3.5-5.1) mmol/L Chloride 122 H (98-107) mmol/L Carbon Dioxide 17 L (22-30) mmol/L Glucose (74-99) mg/dL POC Glucose (mg/dL) 121 H 113 H (70-110) mg/dL Calcium 7.3 L (8.4-10.2) mg/dL 12/07/23 12/08/23 12/08/23 Range/Units 21:07 04:02 05:12 WBC (3.8-10.6) k/uL MCHC (31.0-37.0) g/dL RDW (11.5-15.5) % Neutrophils # (Manual) (1.3-7.7) k/uL ABG pH 7.28 L (7.35-7.45) ABG pCO2 32 L (35-45) mmHg ABG HCO3 15 L (21-25) mmol/L ABG Total CO2 16 L (19-24) mmol/L Potassium (3.5-5.1) mmol/L Chloride (98-107) mmol/L Carbon Dioxide (22-30) mmol/L Glucose (74-99) mg/dL POC Glucose (mg/dL) 118 H 140 H (70-110) mg/dL Calcium (8.4-10.2) mg/dL 12/08/23 12/08/23 12/08/23 Range/Units 05:28 05:28 06:42 WBC 33.3 H (3.8-10.6) k/uL MCHC 30.6 L (31.0-37.0) g/dL RDW 20.8 H (11.5-15.5) % Neutrophils # (Manual) 30.30 H (1.3-7.7) k/uL ABG pH (7.35-7.45) ABG pCO2 (35-45) mmHg ABG HCO3 (21-25) mmol/L ABG Total CO2 (19-24) mmol/L Potassium 3.4 L (3.5-5.1) mmol/L Chloride 125 H (98-107) mmol/L Carbon Dioxide 12 L (22-30) mmol/L Glucose 139 H (74-99) mg/dL POC Glucose (mg/dL) 127 H (70-110) mg/dL Calcium 7.2 L (8.4-10.2) mg/dL Microbiology - Last 24 Hours (Table) 12/04/23 15:45 Blood Culture - Preliminary Blood 12/04/23 23:44 Urine Culture - Preliminary Urine,Catheterized Klebsiella pneumoniae Assessment and Plan Plan: Septic shock secondary to complication of a perforated diverticulitis and development of a colocutaneous fistula. Patient underwent a total laparotomy, colectomy and diverting colostomy and debridement of a cutaneous fistula. Patient is currently postop day #2. This was a complication of a sigmoid diverticulitis. Noted the patient had developed colocutaneous fistula and the patient had a complicated left groin wound that was around 4 cm in size and the fistula was taken down intraoperatively. Patient also underwent a peritoneal lavage with a total of 1 L, descending colostomy creation and a Magaña's pouch. Currently the patient has a incisional wound VAC in place. Sepsis with profound hypotension. The patient is quite hemodynamically unstable at this point in time. Pressors are running at a higher dose of 0.2 mcg/kg/min. New onset A-fib with RVR, the patient's heart rate has been unresponsive to amiodarone. The patient also failed cardioversion. Currently amiodarone drip is running at 0.5 mg/min. Leukocytosis, secondary to above Non-anion gap metabolic acidosis Acute hypercapnic/hypoxic respiratory failure, and the patient has been kept intubated postop. Chest x-ray is showing a small atelectasis/effusion left lung base. Previous right below-knee amputation Unstageable pressure ulcer on the left buttocks with significant eschar in place with tunneling noted up to 3 cm in size. Hydropic gallbladder with multiple gallstones Left adrenal nodule 2.1 cm Right adrenal nodule 1.3 cm Left renal cortical cyst measuring 4.4 cm Mild generalized anasarca Plan Continue vent support and no ventilator changes for today. keep the patient sedated on propofol Give the patient a total of 2 L of normal saline bolus and start the patient on a bicarb infusion at rate of 150 cc an hour Use norepinephrine for hemodynamic support continue amiodarone drip at 0.5 mg/min, give the patient additional dose of 150 mg of IV amiodarone bolus Add vasopressin for hemodynamic support at physiologic dose Antibiotic modification will be done and the patient will be covered with a combination of meropenem, Flagyl and daptomycin will be also added Repeat blood cultures Obtained lactic acid level Keep the patient n.p.o. for now Obtain a 2D echocardiogram Keep NG tube in place to monitor the output Monitor functionality of the colostomy and keep the wound VAC in place Dilaudid for pain control 1 mg every 3 hours The patient has a right IJ triple-lumen catheter in the left upper extremity PICC line Wound care to the unstageable left coccygeal/buttocks and the patient will be having chronic gel applied with subsequent debridement and possible wound VAC to that area Heparin subcu for DVT prophylaxis IV Protonix Will continue to follow along with the surgical team. The patient will be kept in the ICU for now. Critical care evaluation >30 min Time with Patient: Greater than 30
[2023-12-08] MEDS ORDERED: VANCOMYCIN IV PER PHARMACY 1 EACH MISC MISCELLANE PRN (07:57)
[2023-12-08] MEDS: VASOPRESSIN 20 UNIT in SODIUM CHLORIDE 0.9% 50 ML IV SCH (08:09)
[2023-12-08] MEDS: DEXTROSE 5% IN WATER 1,000 ML with SODIUM BICARB (1 MEQ/ML) 150 ML IV SCH (08:11)
[2023-12-08] MEDS: VANCOMYCIN 1,500 MG in SODIUM CHLORIDE 0.9% 500 ML 500 ML IVPB SCH (08:11)
[2023-12-08] MEDS: MEROPENEM 1 GM in SODIUM CHLORIDE 0.9% 100 ML IVPB SCH (08:12)
--- NOTE | 2023-12-08 08:58 | XR ---
EXAM: XR chest 1V portable CLINICAL INDICATION:Female, 73 years old with history of Tube placement; [facility] COMPARISON: 12/07/2023 and 12/06/2023 TECHNIQUE: Chest single view. FINDINGS: Lines/tubes/devices: ET tube tip just below the level of the clavicles about 5.1 cm above odilon. NG/ OG tube traverses below the diaphragm, tip terminating over the gastric body. Left arm PICC with its tip over the mid SVC. Right IJ central venous line with its tip over the mid to superior SVC. EKG jackie ds and other extrinsic structures overlie the chest. Cardiomediastinum: Cardiac silhouette appears normal in size. Stable mediastinal silhouette. Atherosclerotic calcifications of the aorta. Vasculature: No increased pulmonary vasculature. Lungs/pleura: Right lung remains clear. Right costophrenic angle is relatively sharp. Similar appearance of pleural /parenchymal opacity in the left lung base. Bones/soft tissues: Bony thorax appears grossly unchanged as seen. Regional soft tissues appear unremarkable. IMPRESSION: 1. Lines and tubes in place, as above. 2. Stable left basilar opacity, likely small to moderate pleural effusion with adjacent atelectasis/ airspace disease.
[2023-12-08 09:26] LABS: Glucose,Whole Blood 151 mg/dL (70-110)
--- NOTE | 2023-12-08 10:24 | P.PN ---
Subjective Progress Note Date: 12/08/23 Principal diagnosis: Reason for follow-up is complicated diverticulitis with colocutaneous fistula Patient is a 73-year-old female who was brought into the ER at [facility] for the patient complaining of generalized weakness patient noticed to have sacral pressure ulcer and also complicate diverticulitis with a fistula to the left lower abdominal wall.Patient was taken to the OR on 12/06/2023 and this patient was status post exploratory laparotomy with sigmoid colectomy takedown of the colocutaneous fistula left inguinal hernia repair and peritoneal lavage. On today's visit that is 12/08/2023, the patient continues to be afebrile, the patient is on 50% FiO2 and no significant appearance the patient to the ED reported by nursing staff, the Pt remains to be on pressor support quite well this morning, no significant purulent secretions through the ET or any other changes reported by the nursing staff. Patient white count is slightly down to 33.3 from 37.4 yesterday, creatinine 0.84, blood culture with gram-negative bacilli, urine with Klebsiella pneumoniae Objective - Vital Signs Vital signs: Vital Signs Temp 97.5 F L 12/08/23 08:00 Pulse 129 H 12/08/23 10:00 Resp 24 12/08/23 10:00 BP 135/78 12/08/23 10:00 Pulse Ox 100 12/08/23 10:00 FiO2 50 12/08/23 08:15 Intake & Output 12/07/23 12/08/23 12/08/23 18:59 06:59 18:59 Intake Total 2556.622 2764.946 3733.307 Output Total 167 230 368 Balance 2389.622 2534.946 3365.307 Weight 93.8 kg Intake: IV 0 1800 3501 Dextrose 5% in Water 1, 450 000 ml @ 150 mls/hr IV . Q7H40M [facility] with Sodium Bicarb (1 Meq/ml) 150 ml Rx#:[id number] Magnesium Sulfate-D5w Pmx 100 1 gm In Dextrose/Water 1 100ml.bag @ 100 mls/hr IVPB ONCE ONE Rx#: [id number] Magnesium Sulfate-D5w Pmx 100 1 gm In Dextrose/Water 1 100ml.bag @ 100 mls/hr IVPB ONCE ONE Rx#: [id number] Meropenem 1 gm In Sodium 100 Chloride 0.9% 100 ml @ 33 .3 mls/hr IVPB Q8HR [facility] Rx#:[id number] Potassium Chloride 20 meq 200 In Water For Injection 1 100ml.bag @ 50 mls/hr IVPB Q2H [facility] Rx#: [id number] Potassium Chloride 20 meq 200 In Water For Injection 1 100ml.bag @ 50 mls/hr IVPB Q2H [facility] Rx#: [id number] Sodium Chloride 0.9% 1, 1650 1800 150 000 ml @ 150 mls/hr IV . Q6H40M [facility] Rx#:[id number] Sodium Chloride 0.9% 1, 1000 000 ml @ 999 mls/hr IV . Q1H1M [facility] Rx#:[id number] Sodium Chloride 0.9% 1, 1000 000 ml @ 999 mls/hr IV . Q1H1M [facility] Rx#:[id number] Vancomycin 1,500 mg In 501 Sodium Chloride 0.9% 500 ml 500 ml @ 167 mls/hr IVPB Q12HR [facility] Rx#: [id number] metroNIDAZOLE-NS PMX 500 100 mg In Saline 1 100ml.bag @ 100 mls/hr IVPB Q8H [facility] Rx#:[id number] Intake, IV Titration 506.622 964.946 232.307 Amount Norepinephrine 4 mg In 321.448 771.482 Sodium Chloride 0.9% 250 ml @ 0.03 MCG/KG/MIN 9. 332 mls/hr IV .Q24H [facility] Rx#:[id number] Norepinephrine 8 mg In 162.294 Sodium Chloride 0.9% 250 ml @ 0.03 MCG/KG/MIN 5. 445 mls/hr IV .Q24H [facility] Rx#:[id number] propofoL 1,000 mg In 185.174 193.464 70.013 Empty Bag 1 bag @ 15 MCG/ KG/MIN 7.348 mls/hr IV . [id number] [facility] Rx#:[id number] Output: Gastric Drainage 150 Urine 167 230 218 Other: Voiding Method Indwelling Catheter Indwelling Catheter Indwelling Catheter ABP, PAP, CO, CI - Last Documented Arterial Blood Pressure 121/57 - Exam GENERAL DESCRIPTION: An elderly female intubated on the vent RESPIRATORY SYSTEM: Unlabored breathing , decreased breath sounds at bases HEART: S1 S2 regular rate and rhythm , ABDOMEN: Soft , no tenderness EXTREMITIES: No edema feet - Labs CBC & Chem 7: 12/08/23 05:28 12/08/23 05:28 Labs: Abnormal Lab Results - Last 24 Hours (Table) 12/07/23 12/07/23 12/07/23 Range/Units 10:26 18:01 21:07 WBC (3.8-10.6) k/uL MCHC (31.0-37.0) g/dL RDW (11.5-15.5) % Neutrophils # (Manual) (1.3-7.7) k/uL ABG pH (7.35-7.45) ABG pCO2 (35-45) mmHg ABG HCO3 (21-25) mmol/L ABG Total CO2 (19-24) mmol/L Potassium (3.5-5.1) mmol/L Chloride (98-107) mmol/L Carbon Dioxide (22-30) mmol/L Glucose (74-99) mg/dL POC Glucose (mg/dL) 121 H 113 H 118 H (70-110) mg/dL Calcium (8.4-10.2) mg/dL 12/08/23 12/08/23 12/08/23 Range/Units 04:02 05:12 05:28 WBC (3.8-10.6) k/uL MCHC (31.0-37.0) g/dL RDW (11.5-15.5) % Neutrophils # (Manual) (1.3-7.7) k/uL ABG pH 7.28 L (7.35-7.45) ABG pCO2 32 L (35-45) mmHg ABG HCO3 15 L (21-25) mmol/L ABG Total CO2 16 L (19-24) mmol/L Potassium 3.4 L (3.5-5.1) mmol/L Chloride 125 H (98-107) mmol/L Carbon Dioxide 12 L (22-30) mmol/L Glucose 139 H (74-99) mg/dL POC Glucose (mg/dL) 140 H (70-110) mg/dL Calcium 7.2 L (8.4-10.2) mg/dL 12/08/23 12/08/23 12/08/23 Range/Units 05:28 06:42 09:25 WBC 33.3 H (3.8-10.6) k/uL MCHC 30.6 L (31.0-37.0) g/dL RDW 20.8 H (11.5-15.5) % Neutrophils # (Manual) 30.30 H (1.3-7.7) k/uL ABG pH (7.35-7.45) ABG pCO2 (35-45) mmHg ABG HCO3 (21-25) mmol/L ABG Total CO2 (19-24) mmol/L Potassium (3.5-5.1) mmol/L Chloride (98-107) mmol/L Carbon Dioxide (22-30) mmol/L Glucose (74-99) mg/dL POC Glucose (mg/dL) 127 H 151 H (70-110) mg/dL Calcium (8.4-10.2) mg/dL Microbiology - Last 24 Hours (Table) 12/04/23 15:45 Blood Culture - Preliminary Blood 12/04/23 23:44 Urine Culture - Preliminary Urine,Catheterized Klebsiella pneumoniae Assessment and Plan (1) Diverticulitis of intestine, part unspecified, without perforation or a bscess without bleeding Current Visit: Yes Status: Acute Code(s): K57.92 - DVTRCLI OF INTEST, PART UNSP, W/O PERF OR ABSCESS W/O BLEED SNOMED Code(s): 252454543 (2) Leukocytosis Current Visit: Yes Status: Acute Code(s): D72.829 - ELEVATED WHITE BLOOD CELL COUNT, UNSPECIFIED SNOMED Code(s): 407234778 (3) Sepsis Current Visit: Yes Status: Acute Code(s): A41.9 - SEPSIS, UNSPECIFIED ORGANISM SNOMED Code(s): 01042894 (4) Gram-negative bacteremia Current Visit: Yes Status: Acute Code(s): R78.81 - BACTEREMIA SNOMED Code(s): 924794454728 Plan: 1patient with complicated diverticulitis with evidence of fistulous communication to the skin left lower quadrant area and concern for possible exte nsion to the bladder, will need to cover for the polymicrobial jessie associated with such condition including enteric gram-negative both aerobes and anaerobes 2-patient also have a pressure ulcer but no significant surrounding cellulitis, wound care has been consulted continue local wound care per them 3gram-negative 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 with ID sensitivities pending 3-patient is status post extensive surgery including 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 5patient antibiotic has been adjusted to meropenem by pulmonary per Suggestion of the pharmacist we will wait for the ID of this pathogen vancomycin has been added as well discontinue Flagyl will repeat blood cultures document clearance of bacteremia Prognosis remains to be guarded Dictation was produced using [employer] dictation software. please excuse any grammatical, word or spelling errors. Time with Patient: Greater than 30
--- NOTE | 2023-12-08 10:59 | P.PN ---
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 Ostomy is functioning this morning. Patient went into atrial fibrillation with rapid ventricular response this morning. Discussion with nurse also revealed incisional wound VAC no longer working in the past 2 hours. Patient's antibiotic has been adjusted. She has full ventilatory support. Patient was an uric. Now she is making urine. ROS: No reports of nausea and vomiting. No new chest pain. No productive sputum PHYSICAL EXAM: VITAL SIGNS: Reviewed CONSTITUTIONAL: Well developed and in no acute distress. EYES: Conjuctivae without sclera icterus. Extraocular movements grossly intact. HEAD, EARS, NOSE, THROAT: Moist buccal mucosa. Head is atraumatic, normocephalic. Extremely hard of hearing. No nasal drainage. RESPIRATORY: Non-labored respirations and equal bilateral excursions. CARDIOVASCULAR: Palpable 2+ radial pulses. ABDOMEN: Ostomy functioning with stool. Midline dressing with incisional wound VAC suction malfunction. MUSCULOSKELETAL: Has right [id number] amputation. SKIN: Good skin turgor. Well perfused. NEUROLOGIC: Cranial nerves II through XII grossly intact. No focal or lateralizing signs. PSYCH: Appropriate affect. Alert and oriented to person, place and time. CLINICAL LABS: Reviewed. WBC elevated over 30,000. ASSESSMENT: 1. 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 Sensorineural hearing loss, moderate to extreme 3. No previous medical care 4. Severe iron deficiency anemia 5. Generalized malnutrition 6. Oliguric PLAN: 1. Continue ICU care due to multiple pressures and septic shock 2. May start enteral tube feeds via OG tube 3. Connect incisional wound VAC system to wall suction high suction, continuous due to moderate anticipated drainage 4. Overall, prognosis guarded. Nurse in contact with family regarding care. 5. Please notate on patient's bedside extremely hard of hearing. Objective - Vital Signs Vital signs: Vital Signs Temp 97.5 F L 12/08/23 08:00 Pulse 129 H 12/08/23 10:00 Resp 24 12/08/23 10:00 BP 135/78 12/08/23 10:00 Pulse Ox 100 12/08/23 10:00 FiO2 50 12/08/23 08:15 Intake & Output 12/07/23 12/08/23 12/08/23 18:59 06:59 18:59 Intake Total 2556.622 2764.946 3733.307 Output Total 167 230 368 Balance 2389.622 2534.946 3365.307 Weight 93.8 kg Intake: IV 2050 1800 3501 Dextrose 5% in Water 1, 450 000 ml @ 150 mls/hr IV . Q7H40M [facility] with Sodium Bicarb (1 Meq/ml) 150 ml Rx#:[id number] Magnesium Sulfate-D5w Pmx 100 1 gm In Dextrose/Water 1 100ml.bag @ 100 mls/hr IVPB ONCE ONE Rx#: [id number] Magnesium Sulfate-D5w Pmx 100 1 gm In Dextrose/Water 1 100ml.bag @ 100 mls/hr IVPB ONCE ONE Rx#: [id number] Meropenem 1 gm In Sodium 100 Chloride 0.9% 100 ml @ 33 .3 mls/hr IVPB Q8HR REPLACED BY [facility] Rx#:[id number] Potassium Chloride 20 meq 200 In Water For Injection 1 100ml.bag @ 50 mls/hr IVPB Q2H [facility] Rx#: [id number] Potassium Chloride 20 meq 200 In Water For Injection 1 100ml.bag @ 50 mls/hr IVPB Q2H REPLACED BY [facility] Rx#: [id number] Sodium Chloride 0.9% 1, 1650 1800 150 000 ml @ 150 mls/hr IV . Q6H40M REPLACED BY [facility] Rx#:[id number] Sodium Chloride 0.9% 1, 1000 000 ml @ 999 mls/hr IV . Q1H1M ONE Rx#:[id number] Sodium Chloride 0.9% 1, 1000 000 ml @ 999 mls/hr IV . Q1H1M ONE Rx#:[id number] Vancomycin 1,500 mg In 501 Sodium Chloride 0.9% 500 ml 500 ml @ 167 mls/hr IVPB Q12HR REPLACED BY [facility] Rx#: [id number] metroNIDAZOLE-NS PMX 500 100 mg In Saline 1 100ml.bag @ 100 mls/hr IVPB Q8H REPLACED BY [facility] Rx#:[id number] Intake, IV Titration 506.622 964.946 232.307 Amount Norepinephrine 4 mg In 321.448 771.482 Sodium Chloride 0.9% 250 ml @ 0.03 MCG/KG/MIN 9. 332 mls/hr IV .Q24H [facility] Rx#:[id number] Norepinephrine 8 mg In 162.294 Sodium Chloride 0.9% 250 ml @ 0.03 MCG/KG/MIN 5. 445 mls/hr IV .Q24H [facility] Rx#:[id number] propofoL 1,000 mg In 185.174 193.464 70.013 Empty Bag 1 bag @ 15 MCG/ KG/MIN 7.348 mls/hr IV . [id number] [facility] Rx#:[id number] Output: Gastric Drainage 150 Urine 167 230 218 Other: Voiding Method Indwelling Catheter Indwelling Catheter Indwelling Catheter ABP, PAP, CO, CI - Last Documented Arterial Blood Pressure 121/57 - Labs CBC & Chem 7: 12/08/23 05:28 12/08/23 05:28 Labs: Abnormal Lab Results - Last 24 Hours (Table) 12/07/23 12/07/23 12/08/23 Range/Units 18:01 21:07 04:02 WBC (3.8-10.6) k/uL MCHC (31.0-37.0) g/dL RDW (11.5-15.5) % Neutrophils # (Manual) (1.3-7.7) k/uL ABG pH (7.35-7.45) ABG pCO2 (35-45) mmHg ABG HCO3 (21-25) mmol/L ABG Total CO2 (19-24) mmol/L Potassium (3.5-5.1) mmol/L Chloride (98-107) mmol/L Carbon Dioxide (22-30) mmol/L Glucose (74-99) mg/dL POC Glucose (mg/dL) 113 H 118 H 140 H (70-110) mg/dL Calcium (8.4-10.2) mg/dL 12/08/23 12/08/23 12/08/23 Range/Units 05:12 05:28 05:28 WBC 33.3 H (3.8-10.6) k/uL MCHC 30.6 L (31.0-37.0) g/dL RDW 20.8 H (11.5-15.5) % Neutrophils # (Manual) 30.30 H (1.3-7.7) k/uL ABG pH 7.28 L (7.35-7.45) ABG pCO2 32 L (35-45) mmHg ABG HCO3 15 L (21-25) mmol/L ABG Total CO2 16 L (19-24) mmol/L Potassium 3.4 L (3.5-5.1) mmol/L Chloride 125 H (98-107) mmol/L Carbon Dioxide 12 L (22-30) mmol/L Glucose 139 H (74-99) mg/dL POC Glucose (mg/dL) (70-110) mg/dL Calcium 7.2 L (8.4-10.2) mg/dL 12/08/23 12/08/23 Range/Units 06:42 09:25 WBC (3.8-10.6) k/uL MCHC (31.0-37.0) g/dL RDW (11.5-15.5) % Neutrophils # (Manual) (1.3-7.7) k/uL ABG pH (7.35-7.45) ABG pCO2 (35-45) mmHg ABG HCO3 (21-25) mmol/L ABG Total CO2 (19-24) mmol/L Potassium (3.5-5.1) mmol/L Chloride (98-107) mmol/L Carbon Dioxide (22-30) mmol/L Glucose (74-99) mg/dL POC Glucose (mg/dL) 127 H 151 H (70-110) mg/dL Calcium (8.4-10.2) mg/dL Microbiology - Last 24 Hours (Table) 12/04/23 15:45 Blood Culture - Preliminary Blood 12/04/23 23:44 Urine Culture - Preliminary Urine,Catheterized Klebsiella pneumoniae
[2023-12-08] MEDS: HEPARIN SOD,PORK IN 0.45% NACL 25,000 UNIT in 0.45% NACL 1 250ML.BAG IV SCH (11:45)
[2023-12-08 11:57] LABS: Glucose,Whole Blood 182 mg/dL (70-110)
[2023-12-08 12:13] LABS: INR 1.4 (<1.2); Partial Thromboplastin Time 42.9 sec (22.0-30.0); Prothrombin Time 14.1 sec (10.0-12.5)
[2023-12-08 15:41] LABS: Glucose,Whole Blood 201 mg/dL (70-110)
--- NOTE | 2023-12-08 16:03 | P.PN ---
Subjective Progress Note Date: 12/08/23 Principal diagnosis: Atrial fibrillation This is a 73-year-old female patient was admitted to the hospital initially with perforated diverticulitis complicated by Colocutaneous fistula and subsequently she underwent surgery. The surgery was complicated by cardiogenic shock. The patient currently is on 2 vasopressors including vasopressin's as well as norepinephrine. We initially seen the patient and signed off on her before. We saw her for preop cardiac assessment for noncardiac surgery. We requested to see the patient again because she developed atrial fibrillation with RVR. Her pressure continues to be low. She was started on amiodarone IV which I would agree on. She also was started on heparin IV which I would agree on. The echo during the hospital stay showed mildly impaired LV function with EF around 45%. Another echo was requested and performed and we are in process to have the results. The examination is remarkable for the patient being intubated on mechanical ventilation currently on 2 vasopressors as well as regular rate and rhythm with a distant heart sounds and diminished breathing sounds bilaterally Assessment Perforated diverticulitis complicated by [place] cutaneous fistula status post surgery Septic shock Paroxysmal atrial fibrillation and this is a new diagnosis to the patient Multiple comorbid conditions Cardiomyopathy on the most recent echocardiogram Plan Agree with the amiodarone and heparin Consider switching the patient to oral amiodarone Consider switching the patient to oral anticoagulation down the line if there is no need for any further surgical intervention Follow-up on the most recent echocardiogram Objective - Vital Signs Vital signs: Vital Signs Temp 97.5 F L 12/08/23 12:00 Pulse 72 12/08/23 15:42 Resp 24 12/08/23 15:00 BP 133/93 12/08/23 15:00 Pulse Ox 100 12/08/23 15:00 FiO2 50 12/08/23 15:42 Intake & Output 12/07/23 12/08/23 12/08/23 18:59 06:59 18:59 Intake Total 2556.622 2764.946 4694.865 Output Total 167 230 656 Balance 2389.622 2534.946 4038.865 Weight 93.8 kg Intake: IV 2049 1800 4251 Dextrose 5% in Water 1, 1200 000 ml @ 150 mls/hr IV . Q7H40M [facility] with Sodium Bicarb (1 Meq/ml) 150 ml Rx#:[id number] Magnesium Sulfate-D5w Pmx 100 1 gm In Dextrose/Water 1 100ml.bag @ 100 mls/hr IVPB ONCE ONE Rx#: [id number] Magnesium Sulfate-D5w Pmx 100 1 gm In Dextrose/Water 1 100ml.bag @ 100 mls/hr IVPB ONCE ONE Rx#: [id number] Meropenem 1 gm In Sodium 100 Chloride 0.9% 100 ml @ 33 .3 mls/hr IVPB Q8HR ON LICENSE OF [facility] Rx#:[id number] Potassium Chloride 20 meq 200 In Water For Injection 1 100ml.bag @ 50 mls/hr IVPB Q2H ON LICENSE OF [facility] Rx#: [id number] Potassium Chloride 20 meq 200 In Water For Injection 1 100ml.bag @ 50 mls/hr IVPB Q2H ON LICENSE OF [facility] Rx#: [id number] Sodium Chloride 0.9% 1, 1650 1800 150 000 ml @ 150 mls/hr IV . Q6H40M ON LICENSE OF [facility] Rx#:[id number] Sodium Chloride 0.9% 1, 1000 000 ml @ 999 mls/hr IV . Q1H1M ONE Rx#:[id number] Sodium Chloride 0.9% 1, 1000 000 ml @ 999 mls/hr IV . Q1H1M ONE Rx#:[id number] Vancomycin 1,500 mg In 501 Sodium Chloride 0.9% 500 ml 500 ml @ 167 mls/hr IVPB Q12HR ON LICENSE OF [facility] Rx#: [id number] metroNIDAZOLE-NS PMX 500 100 mg In Saline 1 100ml.bag @ 100 mls/hr IVPB Q8H ON LICENSE OF [facility] Rx#:[id number] Intake, IV Titration 506.622 964.946 393.865 Amount Norepinephrine 4 mg In 321.448 771.482 Sodium Chloride 0.9% 250 ml @ 0.03 MCG/KG/MIN 9. 332 mls/hr IV .Q24H ON LICENSE OF [facility] Rx#:[id number] Norepinephrine 8 mg In 233.835 Sodium Chloride 0.9% 250 ml @ 0.03 MCG/KG/MIN 5. 445 mls/hr IV .Q24H ON LICENSE OF [facility] Rx#:[id number] propofoL 1,000 mg In 185.174 193.464 160.030 Empty Bag 1 bag @ 15 MCG/ KG/MIN 7.348 mls/hr IV . [id number] ON LICENSE OF [facility] Rx#:[id number] Tube Feeding 20 Other 30 Output: Gastric Drainage 150 Drainage 20 Abdomen 20 Urine 167 230 486 Other: Voiding Method Indwelling Catheter Indwelling Catheter Indwelling Catheter ABP, PAP, CO, CI - Last Documented Arterial Blood Pressure 121/61 - Labs CBC & Chem 7: 12/08/23 05:28 12/08/23 05:28 Labs: Abnormal Lab Results - Last 24 Hours (Table) 12/07/23 12/07/23 12/08/23 Range/Units 18:01 21:07 04:02 WBC (3.8-10.6) k/uL MCHC (31.0-37.0) g/dL RDW (11.5-15.5) % Neutrophils # (Manual) (1.3-7.7) k/uL PT (10.0-12.5) sec INR (<1.2) APTT (22.0-30.0) sec ABG pH (7.35-7.45) ABG pCO2 (35-45) mmHg ABG HCO3 (21-25) mmol/L ABG Total CO2 (19-24) mmol/L Potassium (3.5-5.1) mmol/L Chloride (98-107) mmol/L Carbon Dioxide (22-30) mmol/L Glucose (74-99) mg/dL POC Glucose (mg/dL) 113 H 118 H 140 H (70-110) mg/dL Calcium (8.4-10.2) mg/dL 12/08/23 12/08/23 12/08/23 Range/Units 05:12 05:28 05:28 WBC 33.3 H (3.8-10.6) k/uL MCHC 30.6 L (31.0-37.0) g/dL RDW 20.8 H (11.5-15.5) % Neutrophils # (Manual) 30.30 H (1.3-7.7) k/uL PT (10.0-12.5) sec INR (<1.2) APTT (22.0-30.0) sec ABG pH 7.28 L (7.35-7.45) ABG pCO2 32 L (35-45) mmHg ABG HCO3 15 L (21-25) mmol/L ABG Total CO2 16 L (19-24) mmol/L Potassium 3.4 L (3.5-5.1) mmol/L Chloride 125 H (98-107) mmol/L Carbon Dioxide 12 L (22-30) mmol/L Glucose 139 H (74-99) mg/dL POC Glucose (mg/dL) (70-110) mg/dL Calcium 7.2 L (8.4-10.2) mg/dL 12/08/23 12/08/23 12/08/23 Range/Units 06:42 09:25 11:56 WBC (3.8-10.6) k/uL MCHC (31.0-37.0) g/dL RDW (11.5-15.5) % Neutrophils # (Manual) (1.3-7.7) k/uL PT (10.0-12.5) sec INR (<1.2) APTT (22.0-30.0) sec ABG pH (7.35-7.45) ABG pCO2 (35-45) mmHg ABG HCO3 (21-25) mmol/L ABG Total CO2 (19-24) mmol/L Potassium (3.5-5.1) mmol/L Chloride (98-107) mmol/L Carbon Dioxide (22-30) mmol/L Glucose (74-99) mg/dL POC Glucose (mg/dL) 127 H 151 H 182 H (70-110) mg/dL Calcium (8.4-10.2) mg/dL 12/08/23 12/08/23 Range/Units 11:57 15:39 WBC (3.8-10.6) k/uL MCHC (31.0-37.0) g/dL RDW (11.5-15.5) % Neutrophils # (Manual) (1.3-7.7) k/uL PT 14.1 H (10.0-12.5) sec INR 1.4 H (<1.2) APTT 42.9 H (22.0-30.0) sec ABG pH (7.35-7.45) ABG pCO2 (35-45) mmHg ABG HCO3 (21-25) mmol/L ABG Total CO2 (19-24) mmol/L Potassium (3.5-5.1) mmol/L Chloride (98-107) mmol/L Carbon Dioxide (22-30) mmol/L Glucose (74-99) mg/dL POC Glucose (mg/dL) 201 H (70-110) mg/dL Calcium (8.4-10.2) mg/dL Microbiology - Last 24 Hours (Table) 12/04/23 23:44 Urine Culture - Final Urine,Catheterized Klebsiella pneumoniae 12/04/23 15:45 Blood Culture - Preliminary Blood
[2023-12-08 18:40] LABS: ALT 8 U/L (4-34); AST 18 U/L (14-36); African American GFR (CKD) >90 (>60 ml/min/1.73 sqM); Albumin 1.2 g/dL (3.5-5.0); Alkaline Phosphatase 134 U/L (38-126); Anion Gap 4 mmol/L; Blood Urea Nitrogen 15 mg/dL (7-17); Calcium 6.6 mg/dL (8.4-10.2); Carbon Dioxide 15 mmol/L (22-30); Chloride 122 mmol/L (98-107); Glucose 211 mg/dL (74-99); Magnesium 1.8 mg/dL (1.6-2.3); Non-African American GFR(CKD) 89 (>60 ml/min/1.73 sqM); Sodium 141 mmol/L (137-145); Total Bilirubin 0.6 mg/dL (0.2-1.3); Total Protein 3.4 g/dL (6.3-8.2)
[2023-12-08 19:39] LABS: Potassium 3.4 mmol/L (3.5-5.1)
--- NOTE | 2023-12-08 19:41 | CA ---
Transthoracic Echo Report Name: Michelle Roca Age: 73 Gender: F : 1950 Exam Date: 12/08/2023 09:34 Exam Location: [facility] Ht (in): 67 Wt (lb): 206 Ordering Physician: Tre Reece MD Attending/Referring Phys: Nurse Auditor ML Procedure CPT: Indications: LV function Cardiac Hx: Technical Quality: Contrast 1: Total Dose (mL): Contrast 2: Total Dose (mL): MEASUREMENTS (Male / Female) Normal Values 2D ECHO LV Diastolic Diameter PLAX 2.9 cm 4.2 - 5.9 / 3.9 - 5.3 cm LV Systolic Diameter PLAX 1.6 cm IVS Diastolic Thickness 1.2 cm 0.6 - 1.0 / 0.6 - 0.9 cm LVPW Diastolic Thickness 1.2 cm 0.6 - 1.0 / 0.6 - 0.9 cm LV Relative Wall Thickness 0.9 DOPPLER Mitral E Point Velocity 105.7 cm/s Mitral A Point Velocity 45.0 cm/s Mitral E to A Ratio 2.3 MV Deceleration Time 149.6 ms FINDINGS Left Ventricle Mildly increased septal wall thickness. Mildly increased posterior wall thickness. EF is at 50% Right Ventricle Right Atrium Left Atrium Mitral Valve Aortic Valve Tricuspid Valve Pulmonic Valve Pericardium Aorta CONCLUSIONS Limited study, previous echo recorded on 12/05/2023. Low-normal LV systolic function with EF at 50% Mild to moderate MR Previewed by: Dr. Domenic Barker MD (Electronically Signed) Final Date: 08 December 2023 19:41
[2023-12-08] MEDS: POTASSIUM BICARBONATE/CIT AC 20 MEQ TABLET.EFF NG-TUBE SCH (20:15)
[2023-12-08 21:24] LABS: Glucose,Whole Blood 244 mg/dL (70-110)
[2023-12-08] MEDS: ALBUMIN HUMAN 25% 50 ML in EMPTY BAG 1 BAG IVPB SCH (21:36)
--- NOTE | 2023-12-08 21:43 | P.PN ---
Subjective This is a pleasant 73 years old female who presents to the emergency room for lower abdominal fistula drainage, associated with generalized weakness. Patient looks awake alert but tired looking, pale. Feels generally weak. N has mild generalized abdominal pain and tenderness. No rebound tenderness. Blood with malodorous left lower abdominal fistula drainage with fecal material coming out. Patient also with right rotation. Patient also with unstageable sacral pressure ulcer. With some evidence of cellulitis. Patient is mildly confused. But no headache or weakness in upper or lower patient was hypotensive with a blood pressure/42, currently slightly better 96/43. Potassium is low 2.9, WBC elevated 23,000, hemoglobin 7.4. Creatinine 0.7. Liver enzymes unremarkable. CT of the abdomen pelvis showing sigmoid diverticulitis and proctitis. 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 Please refer to the report for more details. Patient was ordered received normal saline boluses. Currently on Normosol at 130 mL/h She received 1 dose of Zosyn and started on Flagyl. We are going to add cefepime for gram-negative coverage. 12/05/2023 Patient is awake and alert, generally weak and tired, mildly drowsy Denies abdominal pain or tenderness, she has fistula in the left lower abdomen She denies chest pain or dyspnea. No headache dizziness weakness or numbness. No breathing difficulty. And currently she is saturating well on room air. Blood pressure is still on the low side.but is improving while on IV fluid Glucose 65 and her fluids changed to D5 normal saline at 1 30 mL/h She is currently covered with cefepime and IV Flagyl and IV Protonix She has leukocytosis of 23,000, hemoglobin stable 7.9, low potassium been replaced. Magnesium is normal 2.0. B12 541, Elevated ESR 75 and CRP 25 Patient at moderate risk for her multiple medical problems. Because of this ec hocardiogram was requested and cardiology consulted for preop evaluation. 12/06/2023 Patient remains awake and oriented, mildly lethargic Patient today was supposed to go for surgery to fix her enteric fistula Blood pressure was on the low side this morning I got a call from the bedside nurse blood pressure was 68/32, a bolus of normal saline is provided as well as midodrine Blood pressure a little low after first bolus, where going to give her another bolus of 1 L follow-up with the blood pressure. 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 [employer] eval into the patient for preop assessment and there is no contraindication to proceed with surgery. Patient remains on normal saline with 30 mL/h, cefepime, IV Flagyl and IV Protonix 12/07/2023 Patient s/p sigmoid colectomy and taken down the fistula with peritoneal lavage, creatinine descending colostomy pouch with rectum Gabriel procedure by surgery team Postoperatively and perioperatively patient was hypotensive, after the procedure she got intubated and sent to the intensive care unit and started on pressors Patient remains on excessive hydration She is making about 10 to 20 mL of urine output She remains on broad-spectrum antibiotics with IV cefepime and Flagyl Patient labs and vitals are reviewed Active Medications Generic Name Dose Route Start Last Admin Trade Name Freq PRN Reason Stop Dose Admin Acetaminophen 650 mg 12/04/23 18:04 Acetaminophen Tab 325 Mg Tab PO Q6HR PRN Mild Pain or Fever > 100.5 Amiodarone HCl 400 mg 12/09/23 09:00 Amiodarone 200 Mg Tab NG-TUBE 12/14/23 21:00 BID HARRIS Chlorhexidine Gluconate 15 ml 12/06/23 21:00 12/08/23 20:15 Chlorhexidine Gluconate 15 Ml Cup MUCOUS MEM 15 ml BID HARRIS Administration Heparin Sodium (Porcine) 0 unit 12/08/23 11:28 Heparin Sodium 1,000 Un/Ml (10ml Vl) IV PER PROTOCOL PRN Low PTT Protocol Hydromorphone HCl 1 mg 12/07/23 07:57 12/08/23 03:00 Hydromorphone 1 Mg/Ml 1 Ml Syringe IVP 1 mg Q3HR PRN Administration Pain Propofol 1,000 mg/ IV Solution 100 mls @ 7.348 mls/hr 12/06/23 20:00 12/08/23 20:17 IV 35 mcg/kg/min .[id number] HARRIS 17.146 mls/hr Administration Protocol 15 MCG/KG/MIN Amiodarone HCl 450 mg/ 250 mls @ 16.667 mls/hr 12/08/23 07:00 12/08/23 06:55 Dextrose/Water IV 12/09/23 00:59 0.5 mg/min .Q15H HARRIS 16.667 mls/hr Administration Protocol 0.5 MG/MIN Norepinephrine Bitartrate 8 mg 258 mls @ 5.445 mls/hr 12/08/23 06:00 12/08/23 19:13 / Sodium Chloride IV Infused .Q24H HARRIS Titration Protocol 0.03 MCG/KG/MIN Meropenem 1 gm/ Sodium 100 mls @ 33.3 mls/hr 12/08/23 08:00 12/08/23 15:29 Chloride IVPB 33.3 mls/hr Q8HR HARRIS Administration Protocol Vasopressin 20 unit/ Sodium 51 mls @ 4.59 mls/hr 12/08/23 08:00 12/08/23 17:37 Chloride IV 0.03 units/min .Q11H7M HARRIS 4.59 mls/hr Administration Protocol 0.03 UNITS/MIN Sodium Bicarbonate 150 ml/ 1,150 mls @ 150 mls/hr 12/08/23 08:00 12/08/23 15:31 Dextrose/Water IV 150 mls/hr .Q7H40M HARRIS Administration Vancomycin HCl 1,500 mg/ 500 mls @ 167 mls/hr 12/08/23 09:00 12/08/23 20:15 Sodium Chloride IVPB 167 mls/hr Q12HR HARRIS Administration Heparin Sodium/Sodium Chloride 250 mls @ 10 mls/hr 12/08/23 11:30 12/08/23 20:45 25,000 unit/ Sodium Chloride IV 6.66 units/kg/hr .Q24H HARRIS 6.247 mls/hr Titration Protocol 10.661 UNITS/KG/HR Albumin Human 50 ml/ IV 50 mls @ 50 mls/hr 12/08/23 21:30 12/08/23 21:36 Solution IVPB 12/08/23 23:29 50 mls/hr Q1H HARRIS Administration Insulin Aspart 0 unit 12/08/23 21:00 Insulin Aspart (Novolog) 100 Unit/Ml Vial SQ ACHS HARRIS Protocol Midodrine 5 mg 12/06/23 10:00 12/08/23 17:37 Midodrine 5 Mg Tab PO 5 mg AC-TID HARIRS Administration Miscellaneous Information 1 each 12/04/23 19:17 Magnesium Replacement Protocol 1 Each Misc MISCELLANE DAILY PRN Per Protocol Protocol Miscellaneous Information 1 each 12/06/23 22:34 Potassium Replacement Protocol 1 Each Misc MISCELLANE DAILY PRN Per Protocol Protocol Morphine Sulfate 4 mg 12/04/23 18:04 Morphine Sulfate 4 Mg/Ml Syringe IV Q4HR PRN Severe Pain (Scale 7 to 10) Naloxone HCl 0.2 mg 12/04/23 18:04 Naloxone 0.4 Mg/Ml 1 Ml Vial IV Q2M PRN Opioid Reversal Pantoprazole Sodium 40 mg 12/05/23 09:00 12/08/23 08:27 Pantoprazole 40 Mg/10 Ml Vial IVP 40 mg DAILY HARRIS Administration Objective - Vital Signs Vital signs: Vital Signs Temp 97.6 F 12/07/23 08:00 Pulse 101 H 12/07/23 11:00 Resp 17 12/07/23 11:00 BP 94/70 12/07/23 11:00 Pulse Ox 97 12/07/23 11:00 FiO2 85 12/07/23 08:00 Intake & Output 12/06/23 12/07/23 12/07/23 18:59 06:59 18:59 Intake Total 1220 3433.647 1126.574 Output Total 600 418 59 Balance 620 3015.647 1067.574 Weight 81.647 kg 90.7 kg Intake: IV 600 3249 900 Cefepime 2 gm In Sodium 100 Chloride 0.9% 100 ml @ 25 mls/hr IVPB Q8HR [facility] Rx# :[id number] Magnesium Sulfate-D5w Pmx 100 100 1 gm In Dextrose/Water 1 100ml.bag @ 100 mls/hr IVPB ONCE ONE Rx#: [id number] Potassium Chloride 20 meq 200 200 In Water For Injection 1 100ml.bag @ 50 mls/hr IVPB Q2H [facility] Rx#: [id number] Sodium Chloride 0.9% 1, 1650 600 000 ml @ 150 mls/hr IV . Q6H40M [facility] Rx#:[id number] Sodium Chloride 0.9% 1, 999 000 ml @ 999 mls/hr IV . Q1H1M ONE Rx#:[id number] metroNIDAZOLE-NS PMX 500 200 mg In Saline 1 100ml.bag @ 100 mls/hr IVPB Q8H [facility] Rx#:[id number] Intake, IV Titration 184.647 226.574 Amount Norepinephrine 4 mg In 22.501 168.035 Sodium Chloride 0.9% 250 ml @ 0.03 MCG/KG/MIN 9. 332 mls/hr IV .Q24H [facility] Rx#:[id number] propofoL 1,000 mg In 162.146 58.539 Empty Bag 1 bag @ 15 MCG/ KG/MIN 7.348 mls/hr IV . [id number] [facility] Rx#:[id number] Blood Product 620 Rc As-1 Unit 310 [id number] Rc As-1 Unit 310 [id number] Output: Urine 600 318 59 Estimated Blood Loss 100 Other: Voiding Method Indwelling Catheter Indwelling Catheter ABP, PAP, CO, CI - Last Documented Arterial Blood Pressure 77/74 - Exam -GENERAL: The patient is intubated and sedated HEENT: Pupils are round and equally reacting to light. EOMI. No scleral icterus. No conjunctival pallor. Normocephalic, atraumatic. No pharyngeal erythema. No thyromegaly. CARDIOVASCULAR: S1 and S2 present. No murmurs, rubs, or gallops. PULMONARY: Chest is clear to auscultation, no wheezing , no crackles. -ABDOMEN: Soft, nontender, nondistended, normoactive bowel sounds. No palpable organomegaly. Left lower abdominal colostomy bag MUSCULOSKELETAL: No joint swelling or deformity. -EXTREMITIES: No cyanosis, clubbing, or pedal edema. Right knee amputation, old NEUROLOGICAL: Gross neurological examination did not reveal any focal deficits. SKIN: No rashes. no petechiae. - Labs CBC & Chem 7: 12/08/23 05:28 12/08/23 17:40 Labs: Abnormal Lab Results - Last 24 Hours (Table) 12/04/23 12/06/23 12/06/23 Range/Units 18:28 11:35 16:36 WBC (3.8-10.6) k/uL Hgb (11.4-16.0) gm/dL MCHC (31.0-37.0) g/dL RDW (11.5-15.5) % Plt Count (150-450) k/uL Neutrophils # (1.3-7.7) k/uL Neutrophils # (Manual) (1.3-7.7) k/uL Lymphocytes # (1.0-4.8) k/uL ABG pH (7.35-7.45) ABG pCO2 29 L (35-45) mmHg ABG pO2 73 L (83-108) mmHg ABG HCO3 20 L (21-25) mmol/L ABG O2 Saturation (94-97) % Potassium (3.5-5.1) mmol/L Chloride (98-107) mmol/L Carbon Dioxide (22-30) mmol/L Glucose (74-99) mg/dL POC Glucose (mg/dL) 126 H (70-110) mg/dL Calcium (8.4-10.2) mg/dL Alkaline Phosphatase (38-126) U/L Total Protein (6.3-8.2) g/dL Albumin (3.5-5.0) g/dL Crossmatch See Detail 12/06/23 12/06/23 12/06/23 Range/Units 19:50 20:32 21:21 WBC 29.0 H (3.8-10.6) k/uL Hgb 10.8 L (11.4-16.0) gm/dL MCHC 30.7 L (31.0-37.0) g/dL RDW 20.2 H (11.5-15.5) % Plt Count 547 H (150-450) k/uL Neutrophils # 27.8 H (1.3-7.7) k/uL Neutrophils # (Manual) (1.3-7.7) k/uL Lymphocytes # 0.8 L (1.0-4.8) k/uL ABG pH 7.22 L (7.35-7.45) ABG pCO2 51 H (35-45) mmHg ABG pO2 255 H (83-108) mmHg ABG HCO3 (21-25) mmol/L ABG O2 Saturation 98.1 H (94-97) % Potassium (3.5-5.1) mmol/L Chloride (98-107) mmol/L Carbon Dioxide (22-30) mmol/L Glucose (74-99) mg/dL POC Glucose (mg/dL) 113 H (70-110) mg/dL Calcium (8.4-10.2) mg/dL Alkaline Phosphatase (38-126) U/L Total Protein (6.3-8.2) g/dL Albumin (3.5-5.0) g/dL Crossmatch 12/06/23 12/07/23 12/07/23 Range/Units 21:21 01:19 05:53 WBC (3.8-10.6) k/uL Hgb (11.4-16.0) gm/dL MCHC (31.0-37.0) g/dL RDW (11.5-15.5) % Plt Count (150-450) k/uL Neutrophils # (1.3-7.7) k/uL Neutrophils # (Manual) (1.3-7.7) k/uL Lymphocytes # (1.0-4.8) k/uL ABG pH (7.35-7.45) ABG pCO2 31 L (35-45) mmHg ABG pO2 119 H (83-108) mmHg ABG HCO3 18 L (21-25) mmol/L ABG O2 Saturation 97.4 H (94-97) % Potassium 3.2 L (3.5-5.1) mmol/L Chloride 121 H (98-107) mmol/L Carbon Dioxide 19 L (22-30) mmol/L Glucose 105 H (74-99) mg/dL POC Glucose (mg/dL) 115 H (70-110) mg/dL Calcium 7.5 L (8.4-10.2) mg/dL Alkaline Phosphatase 132 H (38-126) U/L Total Protein 3.9 L (6.3-8.2) g/dL Albumin 1.5 L (3.5-5.0) g/dL Crossmatch 12/07/23 12/07/23 12/07/23 Range/Units 06:26 06:26 10:26 WBC 37.4 H (3.8-10.6) k/uL Hgb 10.7 L (11.4-16.0) gm/dL MCHC 30.7 L (31.0-37.0) g/dL RDW 20.6 H (11.5-15.5) % Plt Count 499 H (150-450) k/uL Neutrophils # (1.3-7.7) k/uL Neutrophils # (Manual) 35.90 H (1.3-7.7) k/uL Lymphocytes # (1.0-4.8) k/uL ABG pH (7.35-7.45) ABG pCO2 (35-45) mmHg ABG pO2 (83-108) mmHg ABG HCO3 (21-25) mmol/L ABG O2 Saturation (94-97) % Potassium (3.5-5.1) mmol/L Chloride 122 H (98-107) mmol/L Carbon Dioxide 17 L (22-30) mmol/L Glucose (74-99) mg/dL POC Glucose (mg/dL) 121 H (70-110) mg/dL Calcium 7.3 L (8.4-10.2) mg/dL Alkaline Phosphatase (38-126) U/L Total Protein (6.3-8.2) g/dL Albumin (3.5-5.0) g/dL Crossmatch Microbiology - Last 24 Hours (Table) 12/04/23 16:00 Blood Culture Gram Stain - Preliminary Blood Blood Culture - Preliminary 12/04/23 15:45 Blood Culture - Preliminary Blood 12/04/23 23:44 Urine Culture - Preliminary Urine,Catheterized Gram Neg Bacilli Assessment and Plan Assessment: Acute sigmoid sigmoid colitis, diverticulitis with proctitis. With multiple entero-cutaneous and entero-vesical fistulas, including to the left lower abdominal wall. Septic shock Acute hypoxic respiratory failure requiring intubation and mechanical ventilation Acute kidney injury Acute anemia, unknown baseline, chronic microcytic. Status post 2 units of blood transfusion currently improved Full-thickness sacral pressure ulcer, with no obvious osseous erosions. Metabolic encephalopathy, with possible elements of delirium Bilateral adrenal nodule, recommend follow-up CT in 3 months. Acute urinary tract infection/cystitis. Culture is growing Klebsiella Anasarca With severe hypoalbuminemia Plan: Continue with IV fluid and monitor vitals. Continue with pressors Continue with ICU management with pulmonary/critical care team consult Continue with mechanical ventilation Continue with antibiotic, ID team on the case Continue with wound care and wound VAC in place with surgery team following closely Cardiology team following closely IV Protonix Monitor and follow-up blood culture DVT prophylaxis: heparin, SCD GI prophylaxis: Protonix Prognosis guarded,
--- NOTE | 2023-12-08 21:45 | P.PN ---
Subjective This is a pleasant 73 years old female who presents to the emergency room for lower abdominal fistula drainage, associated with generalized weakness. Patient looks awake alert but tired looking, pale. Feels generally weak. N has mild generalized abdominal pain and tenderness. No rebound tenderness. Blood with malodorous left lower abdominal fistula drainage with fecal material coming out. Patient also with right rotation. Patient also with unstageable sacral pressure ulcer. With some evidence of cellulitis. Patient is mildly confused. But no headache or weakness in upper or lower patient was hypotensive with a blood pressure/42, currently slightly better 96/43. Potassium is low 2.9, WBC elevated 23,000, hemoglobin 7.4. Creatinine 0.7. Liver enzymes unremarkable. CT of the abdomen pelvis showing sigmoid diverticulitis and proctitis. 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 Please refer to the report for more details. Patient was ordered received normal saline boluses. Currently on Normosol at 130 mL/h She received 1 dose of Zosyn and started on Flagyl. We are going to add cefepime for gram-negative coverage. 12/05/2023 Patient is awake and alert, generally weak and tired, mildly drowsy Denies abdominal pain or tenderness, she has fistula in the left lower abdomen She denies chest pain or dyspnea. No headache dizziness weakness or numbness. No breathing difficulty. And currently she is saturating well on room air. Blood pressure is still on the low side.but is improving while on IV fluid Glucose 65 and her fluids changed to D5 normal saline at 1 30 mL/h She is currently covered with cefepime and IV Flagyl and IV Protonix She has leukocytosis of 23,000, hemoglobin stable 7.9, low potassium been replaced. Magnesium is normal 2.0. B12 541, Elevated ESR 75 and CRP 25 Patient at moderate risk for her multiple medical problems. Because of this ec hocardiogram was requested and cardiology consulted for preop evaluation. 12/06/2023 Patient remains awake and oriented, mildly lethargic Patient today was supposed to go for surgery to fix her enteric fistula Blood pressure was on the low side this morning I got a call from the bedside nurse blood pressure was 68/32, a bolus of normal saline is provided as well as midodrine Blood pressure a little low after first bolus, where going to give her another bolus of 1 L follow-up with the blood pressure. 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 Gin Operator eval into the patient for preop assessment and there is no contraindication to proceed with surgery. Patient remains on normal saline with 30 mL/h, cefepime, IV Flagyl and IV Protonix 12/07/2023 Patient s/p sigmoid colectomy and taken down the fistula with peritoneal lavage, creatinine descending colostomy pouch with rectum Gabriel procedure by surgery team Postoperatively and perioperatively patient was hypotensive, after the procedure she got intubated and sent to the intensive care unit and started on pressors Patient remains on excessive hydration She is making about 10 to 20 mL of urine output She remains on broad-spectrum antibiotics with IV cefepime and Flagyl Patient labs and vitals are reviewed 12/08/2023 Patient remains in the ICU in critical condition product planner around 3:00 she 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 Patient was started on amiodarone and heparin drip Also patient abdomen soft but she is becoming more anuric She still intubated on mechanical ventilation with assist-control Her leukocytosis is worse at 33,000 urine cultures grewing Klebsiella. Blood cultures positive for gram negative bacilli Her antibiotics was adjusted to meropenem and IV vancomycin. Her fluids running normal saline changed to sodium bicarb at 150 mL/h She is still on IV Protonix Her albumin is low so they are going to give her 1 dose of albumin IV if no imp rovement Review of systems: Unable to obtain due to intubation Active Medications Generic Name Dose Route Start Last Admin Trade Name Joséq PRN Reason Stop Dose Admin Acetaminophen 650 mg 12/04/23 18:04 Acetaminophen Tab 325 Mg Tab PO Q6HR PRN Mild Pain or Fever > 100.5 Amiodarone HCl 400 mg 12/09/23 09:00 Amiodarone 200 Mg Tab NG-TUBE 12/14/23 21:00 BID H[facility]IS Chlorhexidine Gluconate 15 ml 12/06/23 21:00 12/08/23 20:15 Chlorhexidine Gluconate 15 Ml Cup MUCOUS MEM 15 ml BID HARRIS Administration Heparin Sodium (Porcine) 0 unit 12/08/23 11:28 Heparin Sodium 1,000 Un/Ml (10ml Vl) IV PER PROTOCOL PRN Low PTT Protocol Hydromorphone HCl 1 mg 12/07/23 07:57 12/08/23 03:00 Hydromorphone 1 Mg/Ml 1 Ml Syringe IVP 1 mg Q3HR PRN Administration Pain Propofol 1,000 mg/ IV Solution 100 mls @ 7.348 mls/hr 12/06/23 20:00 12/08/23 20:17 IV 35 mcg/kg/min .[id number] HARRIS 17.146 mls/hr Administration Protocol 15 MCG/KG/MIN Amiodarone HCl 450 mg/ 250 mls @ 16.667 mls/hr 12/08/23 07:00 12/08/23 06:55 Dextrose/Water IV 12/09/23 00:59 0.5 mg/min .Q15H [facility]IS 16.667 mls/hr Administration Protocol 0.5 MG/MIN Norepinephrine Bitartrate 8 mg 258 mls @ 5.445 mls/hr 12/08/23 06:00 12/08/23 19:13 / Sodium Chloride IV Infused .Q24H [facility] Titration Protocol 0.03 MCG/KG/MIN Meropenem 1 gm/ Sodium 100 mls @ 33.3 mls/hr 12/08/23 08:00 12/08/23 15:29 Chloride IVPB 33.3 mls/hr Q8HR [facility] Administration Protocol Vasopressin 20 unit/ Sodium 51 mls @ 4.59 mls/hr 12/08/23 08:00 12/08/23 17:37 Chloride IV 0.03 units/min .Q11H7M [facility] 4.59 mls/hr Administration Protocol 0.03 UNITS/MIN Sodium Bicarbonate 150 ml/ 1,150 mls @ 150 mls/hr 12/08/23 08:00 12/08/23 15:31 Dextrose/Water IV 150 mls/hr .Q7H40M [facility] Administration Vancomycin HCl 1,500 mg/ 500 mls @ 167 mls/hr 12/08/23 09:00 12/08/23 20:15 Sodium Chloride IVPB 167 mls/hr Q12HR [facility] Administration Heparin Sodium/Sodium Chloride 250 mls @ 10 mls/hr 12/08/23 11:30 12/08/23 20:45 25,000 unit/ Sodium Chloride IV 6.66 units/kg/hr .Q24H [facility] 6.247 mls/hr Titration Protocol 10.661 UNITS/KG/HR Albumin Human 50 ml/ IV 50 mls @ 50 mls/hr 12/08/23 21:30 Solution IVPB 12/08/23 23:29 Q1H [facility] Midodrine 5 mg 12/06/23 10:00 12/08/23 17:37 Midodrine 5 Mg Tab PO 5 mg AC-TID [facility]IS Administration Miscellaneous Information 1 each 12/04/23 19:17 Magnesium Replacement Protocol 1 Each Misc MISCELLANE DAILY PRN Per Protocol Protocol Miscellaneous Information 1 each 12/06/23 22:34 Potassium Replacement Protocol 1 Each Misc MISCELLANE DAILY PRN Per Protocol Protocol Morphine Sulfate 4 mg 12/04/23 18:04 Morphine Sulfate 4 Mg/Ml Syringe IV Q4HR PRN Severe Pain (Scale 7 to 10) Naloxone HCl 0.2 mg 12/04/23 18:04 Naloxone 0.4 Mg/Ml 1 Ml Vial IV Q2M PRN Opioid Reversal Pantoprazole Sodium 40 mg 12/05/23 09:00 12/08/23 08:27 Pantoprazole 40 Mg/10 Ml Vial IVP 40 mg DAILY [facility]ARRIS Administration Objective - Vital Signs Vital signs: Vital Signs Temp 97.5 F L 12/08/23 08:00 Pulse 130 H 12/08/23 11:00 Resp 24 12/08/23 11:00 BP 125/80 12/08/23 11:00 Pulse Ox 100 12/08/23 11:00 FiO2 50 12/08/23 11:34 Intake & Output 12/07/23 12/08/23 12/08/23 18:59 06:59 18:59 Intake Total 2556.622 2764.946 3760.260 Output Total 167 230 368 Balance 2389.622 2534.946 3392.260 Weight 93.8 kg Intake: IV 2050 1800 3501 Dextrose 5% in Water 1, 450 000 ml @ 150 mls/hr IV . Q7H40M [facility] with Sodium Bicarb (1 Meq/ml) 150 ml Rx#:[id number] Magnesium Sulfate-D5w Pmx 100 1 gm In Dextrose/Water 1 100ml.bag @ 100 mls/hr IVPB ONCE ONE Rx#: [id number] Magnesium Sulfate-D5w Pmx 100 1 gm In Dextrose/Water 1 100ml.bag @ 100 mls/hr IVPB ONCE ONE Rx#: [id number] Meropenem 1 gm In Sodium 100 Chloride 0.9% 100 ml @ 33 .3 mls/hr IVPB Q8HR [facility] Rx#:[id number] Potassium Chloride 20 meq 200 In Water For Injection 1 100ml.bag @ 50 mls/hr IVPB Q2H [facility] Rx#: [id number] Potassium Chloride 20 meq 200 In Water For Injection 1 100ml.bag @ 50 mls/hr IVPB Q2H [facility] Rx#: [id number] Sodium Chloride 0.9% 1, 1650 1800 150 000 ml @ 150 mls/hr IV . Q6H40M [facility] Rx#:[id number] Sodium Chloride 0.9% 1, 1000 000 ml @ 999 mls/hr IV . Q1H1M [facility] Rx#:[id number] Sodium Chloride 0.9% 1, 1000 000 ml @ 999 mls/hr IV . Q1H1M [facility] Rx#:[id number] Vancomycin 1,500 mg In 501 Sodium Chloride 0.9% 500 ml 500 ml @ 167 mls/hr IVPB Q12HR [facility] Rx#: [id number] metroNIDAZOLE-NS PMX 500 100 mg In Saline 1 100ml.bag @ 100 mls/hr IVPB Q8H [facility] Rx#:[id number] Intake, IV Titration 506.622 964.946 259.260 Amount Norepinephrine 4 mg In 321.448 771.482 Sodium Chloride 0.9% 250 ml @ 0.03 MCG/KG/MIN 9. 332 mls/hr IV .Q24H [facility] Rx#:[id number] Norepinephrine 8 mg In 189.247 Sodium Chloride 0.9% 250 ml @ 0.03 MCG/KG/MIN 5. 445 mls/hr IV .Q24H [facility] Rx#:[id number] propofoL 1,000 mg In 185.174 193.464 70.013 Empty Bag 1 bag @ 15 MCG/ KG/MIN 7.348 mls/hr IV . [id number] [facility] Rx#:[id number] Output: Gastric Drainage 150 Urine 167 230 218 Other: Voiding Method Indwelling Catheter Indwelling Catheter Indwelling Catheter ABP, PAP, CO, CI - Last Documented Arterial Blood Pressure 127/63 - Exam -GENERAL: The patient is intubated and sedated HEENT: Pupils are round and equally reacting to light. EOMI. No scleral icterus. No conjunctival pallor. Normocephalic, atraumatic. No pharyngeal erythema. No thyromegaly. CARDIOVASCULAR: S1 and S2 present. No murmurs, rubs, or gallops. PULMONARY: Chest is clear to auscultation, no wheezing , no crackles. -ABDOMEN: Soft, nontender, nondistended, normoactive bowel sounds. No palpable organomegaly. Left lower abdominal colostomy bag MUSCULOSKELETAL: No joint swelling or deformity. -EXTREMITIES: No cyanosis, clubbing, or pedal edema. Right knee amputation, old NEUROLOGICAL: Gross neurological examination did not reveal any focal deficits. SKIN: No rashes. no petechiae. - Labs CBC & Chem 7: 12/08/23 05:28 12/08/23 17:40 Labs: Abnormal Lab Results - Last 24 Hours (Table) 12/07/23 12/07/23 12/08/23 Range/Units 18:01 21:07 04:02 WBC (3.8-10.6) k/uL MCHC (31.0-37.0) g/dL RDW (11.5-15.5) % Neutrophils # (Manual) (1.3-7.7) k/uL ABG pH (7.35-7.45) ABG pCO2 (35-45) mmHg ABG HCO3 (21-25) mmol/L ABG Total CO2 (19-24) mmol/L Potassium (3.5-5.1) mmol/L Chloride (98-107) mmol/L Carbon Dioxide (22-30) mmol/L Glucose (74-99) mg/dL POC Glucose (mg/dL) 113 H 118 H 140 H (70-110) mg/dL Calcium (8.4-10.2) mg/dL 12/08/23 12/08/23 12/08/23 Range/Units 05:12 05:28 05:28 WBC 33.3 H (3.8-10.6) k/uL MCHC 30.6 L (31.0-37.0) g/dL RDW 20.8 H (11.5-15.5) % Neutrophils # (Manual) 30.30 H (1.3-7.7) k/uL ABG pH 7.28 L (7.35-7.45) ABG pCO2 32 L (35-45) mmHg ABG HCO3 15 L (21-25) mmol/L ABG Total CO2 16 L (19-24) mmol/L Potassium 3.4 L (3.5-5.1) mmol/L Chloride 125 H (98-107) mmol/L Carbon Dioxide 12 L (22-30) mmol/L Glucose 139 H (74-99) mg/dL POC Glucose (mg/dL) (70-110) mg/dL Calcium 7.2 L (8.4-10.2) mg/dL 12/08/23 12/08/23 Range/Units 06:42 09:25 WBC (3.8-10.6) k/uL MCHC (31.0-37.0) g/dL RDW (11.5-15.5) % Neutrophils # (Manual) (1.3-7.7) k/uL ABG pH (7.35-7.45) ABG pCO2 (35-45) mmHg ABG HCO3 (21-25) mmol/L ABG Total CO2 (19-24) mmol/L Potassium (3.5-5.1) mmol/L Chloride (98-107) mmol/L Carbon Dioxide (22-30) mmol/L Glucose (74-99) mg/dL POC Glucose (mg/dL) 127 H 151 H (70-110) mg/dL Calcium (8.4-10.2) mg/dL Microbiology - Last 24 Hours (Table) 12/04/23 15:45 Blood Culture - Preliminary Blood 12/04/23 23:44 Urine Culture - Preliminary Urine,Catheterized Klebsiella pneumoniae Assessment and Plan Assessment: Acute sigmoid sigmoid colitis, diverticulitis with proctitis. With multiple entero-cutaneous and entero-vesical fistulas, including to the left lower abdominal wall. Septic shock Acute hypoxic respiratory failure requiring intubation and mechanical ventilation Gram-negative bacteremia Acute kidney injury, oliguric Acute anemia, unknown baseline, chronic microcytic Full-thickness sacral pressure ulcer, with no obvious osseous erosions. Metabolic encephalopathy, with possible elements of delirium Bilateral adrenal nodule, recommend follow-up CT in 3 months. Acute urinary tract infection/cystitis. Culture is growing Klebsiella Anasarca With severe hypoalbuminemia Plan: Continue with IV fluid and monitor vitals. currently on sodium bicarb at 150 Continue with antibiotic, meropenem and IV vancomycin, ID team on the case Continue with wound care and wound VAC in place with surgery team following closely Patient remains intubated on mechanical ventilation with pulmonary/critical care team consult Cardiology team following closely IV Protonix Give albumin for hypoalbuminemia Monitor and follow-up blood culture DVT prophylaxis: heparin, SCD GI prophylaxis: Protonix Prognosis guarded,
[2023-12-08] MEDS: INSULIN ASPART (NovoLOG) 100 UNIT/ML VIAL SQ SCH (21:47)
[2023-12-09] MEDS ORDERED: ZINC OXIDE PASTE (Z-GUARD) 1 APPLIC TOPICAL PRN (03:33)
[2023-12-09 03:50] LABS: Glucose,Whole Blood 205 mg/dL (70-110)
[2023-12-09 03:52] LABS: Anisocytosis Moderate; Basophils % (A) 0 %; Eosinophils # (A) 0.4 k/uL (0-0.7); Eosinophils % (A) 1 %; HCT 31.1 % (34.0-46.0); Hypochromasia Marked; Lymphocytes # (A) 1.7 k/uL (1.0-4.8); Lymphocytes % (A) 6 %; MCH 26.1 pg (25.0-35.0); MCHC 31.3 g/dL (31.0-37.0); MCV 83.2 fL (80.0-100.0); Mean Platelet Volume 7.8; Microcytosis Slight; Monocytes % (A) 4 %; Neutrophils # (A) 25.3 k/uL (1.3-7.7); Neutrophils % (A) 89 %; Platelet Count 284 k/uL (150-450); Poikilocytosis Moderate; RBC 3.74 m/uL (3.80-5.40); RDW 21.3 % (11.5-15.5); WBC 28.5 k/uL (3.8-10.6)
[2023-12-09 03:53] LABS: HGB 9.8 gm/dL (11.4-16.0)
[2023-12-09 04:02] LABS: INR 1.4 (<1.2); Prothrombin Time 14.7 sec (10.0-12.5)
[2023-12-09 04:07] LABS: African American GFR (CKD) >90 (>60 ml/min/1.73 sqM); Anion Gap 8 mmol/L; Blood Urea Nitrogen 15 mg/dL (7-17); Calcium 6.6 mg/dL (8.4-10.2); Carbon Dioxide 16 mmol/L (22-30); Chloride 117 mmol/L (98-107); Glucose 183 mg/dL (74-99); Non-African American GFR(CKD) 90 (>60 ml/min/1.73 sqM); Sodium 141 mmol/L (137-145)
[2023-12-09] MEDS: POTASSIUM CHLORIDE 20 MEQ in WATER FOR INJECTION 1 100ML.BAG IVPB SCH (04:47)
[2023-12-09 05:44] LABS: ABG Base Excess -4.2 mmol/L; ABG HCO3 21 mmol/L (21-25); ABG PCO2 35 mmHg (35-45); ABG PH 7.39 (7.35-7.45); ABG PO2 128 mmHg (83-108); ABG TCO2 22 mmol/L (19-24)
[2023-12-09 06:06] LABS: Glucose,Whole Blood 163 mg/dL (70-110)
--- NOTE | 2023-12-09 07:49 | XR ---
EXAMINATION TYPE: XR chest 1V portable DATE OF EXAM: 12/09/2023 COMPARISON: 12/08/2023 HISTORY: SOB, Follow Up FINDINGS: Indwelling tubes and catheters are unchanged. No change in bibasilar opacities. Stable appearance of the cardio-mediastinal structures at this time. Pleural effusion unchanged. IMPRESSION: 1. Stable portable chest. Clinical correlation and follow up until resolution is recommended.
[2023-12-09] MEDS: AMIODARONE 200 MG TAB NG-TUBE SCH (08:31)
[2023-12-09 08:50] LABS: Albumin 1.5 g/dL (3.5-5.0); Bilirubin, Delta 0.4 mg/dL (0.0-0.2); Total Bilirubin 0.4 mg/dL (0.2-1.3); Total Protein 3.6 g/dL (6.3-8.2)
[2023-12-09] MEDS: ALBUMIN HUMAN 25% 50 ML in EMPTY BAG 1 BAG IVPB SCH (10:50)
[2023-12-09 11:40] LABS: Glucose,Whole Blood 209 mg/dL (70-110)
[2023-12-09] MEDS: INSULIN ASPART (NovoLOG) 100 UNIT/ML VIAL SQ SCH (11:43)
--- NOTE | 2023-12-09 12:36 | P.PN ---
Subjective Progress Note Date: 12/09/23 Principal diagnosis: Abdominal sepsis, diverticulitis, gram-negative bacteremia This is a 74-year-old female patient who was brought into the intensive care unit after an extensive abdominal surgery. The patient underwent exploratory laparotomy and sigmoid colectomy and diverging colostomy. The patient was emergently taken to the operating room this afternoon as the patient was becoming hypotensive and she had developed persistent leukocytosis intermittent fevers consistent with sepsis and septic shock. The patient was also becoming hypotensive despite being resuscitated with IV fluids and the patient preoperatively received a total of 3 L of IV fluids. An emergent surgical exploration was indicated. 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 At this point in time, the patient is sedated and the patient is currently on propofol. She is intubated on mechanical ventilator and she is on assist- control mode at a rate of 12, tidal volume of 400, FiO2 of 100% and a PEEP of 5. Chest x-ray shows a right IJ triple-lumen catheter. ET tube is in good location. No airspace disease or consolidation. The blood gases showed a pH of 7.22 with a pCO2 of 51 and pO2 of 255. The patient is currently on no pressors and urine output is quite diminished in the order of 10 to 20 cc since arrival from the operating room. The patient is on IV cefepime and Flagyl. Received a total of 2 unit PRBC intraop 12/07/2023, I am seeing the patient for a follow-up in the intensive care unit. The patient is currently postop day #1. The patient remains intubated on the mechanical ventilator. This morning, the patient is on propofol which is running at 30 mcg/kg/min. She was resuscitated with IV fluids. She was maintained on normal saline at rate of 150 cc an hour and norepinephrine was also added overnight and currently norepinephrine is running at 0.07 mcg/kg/min. Her urine output is in the order of 10 to 20 cc an hour. Overall fluid balance over the past 24 hours has been +3.6 L. The patient remains on a combination of cefepime and Flagyl. The blood work from today shows a WBC count of 37.4, hemoglobin 10.7 and platelet count of 499. BUN is at 15 with a creatinine of 0.8. Sodium is at 143 from yesterday. Repeat electrolytes are still pending for now. Meanwhile, the patient remains intubated on mechanical ventilator. This morning, she is on assist-control mode at rate of 24, tidal volume of 400, FiO2 is at 55% with a PEEP of 5. The blood gas shows a pH of 7.38 with a pCO2 of 31 and pO2 of 119. Review of the chest x-ray from this morning shows adequate positioning of the orotracheal tube. This may need to be pushed in by 1 cm. The patient has a small atelectasis/left-sided pleural effusion. Otherwise, the right lung is essentially clear at this point in time. Antibiotic coverage includes a combination of cefepime and Flagyl. The patient will need Dilaudid for pain control. She is on heparin subcu for DVT prophy laxis. She is resting comfortably in bed. No other significant events overnight. Currently she is afebrile. The wound VAC is in place. Colostomy site is not fully functional at this point in time. Abdomen is soft. 12/08/2023, the patient remains intubated on mechanical ventilator and she is in the intensive care unit postop day #2. The patient remains on a mechanical ventilator. She is currently on assist-control mode with rate of 24, tidal volume of 400, FiO2 of 50% with a PEEP of 5. The blood gases from this morning showed a pH of 7.28 with a pCO2 of 32 and pO2 of 105. The chest x-ray was reviewed and shows evidence of left basilar effusion/atelectasis. Orotracheal tube is in good location. The patient is triple-lumen catheter in her right IJ. Unfortunately, at around 3 AM this morning, the patient went into A-fib RVR and the patient became profoundly hypotensive. The patient progressively required higher dose of norepinephrine and currently norepinephrine is running at 0.2 mcg/kg/min and her mean arterial pressure is around 64. At the same time, the patient received treatment for her new onset atrial fibrillation. She was given an amiodarone bolus and currently she is on amiodarone at 0.5 mg/min. Based on her underlying hypotension. The patient was thought to hemodynamically unstable with A-fib RVR. The patient received cardioversion on 3 separate occasions using 120 J, 150 J and 200 J. Those attempts failed and the patient remained in atrial fibrillation. Her current heart rate is running at around 150 beats a minute, irregular. Urine output has dropped and the patient is producing only 10 cc an hour. At the same time, the patient's white cell count is up to 33.3 with a hemoglobin 12.1 and platelet count of 412. NG tube is in place. Output is minimal. Abdomen remains soft. The wound VAC is still in place. There is some liquidy stool material in the colostomy bag. No abdominal distention. The patient has been developing progressive edema and upper extremities in the left lower extremity. 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 Rest of the electrolytes show a sodium level of 143, serum bicarb is down to 12, anion gap is at 6, BUN is at 17 with a creatinine of 0.8. Magnesium level is at 1.9 with a calcium level of 7.9. The patient remains on IV cefepime and Flagyl. Urine culture from 12/04/2023 was positive for Klebsiella pneumoniae. She is currently afebrile. Propofol is running at 35 mcg/kg/min. The patient has been adequately sedated for now. Patient was reevaluated today on 12/09/2023, remains intubated and mechanically ventilated. On assist-control rate of 24 tidal volume 400 FiO2 50% and PEEP of 5. ABG showed a pO2 of 128 pCO2 35 pH 7.39. His FiO2 was cut down to 40% instead of 50%. Patient remained on multiple drips including norepinephrine, 0.04 mcg/kg/min, propofol at 35 mcg/kg/min, vasopressin at 0.03 units/min, D5W with 3 A of bicarb running at 150 cc/h. Patient is receiving vancomycin and Merrem. Patient has a left IJ triple-lumen catheter and left radial arterial line. Urine is positive Klebsiella, blood cultures were noted to be also positive for gram-negative bacilli. Most likely Klebsiella. Patient is on Merrem and she is on vancomycin patient is now postoperative day #3. Patient received 2 units of packed RBCs, since admission, hemoglobin now is 9.8, hemoglobin went as low as 7.4 on 12/04 labs today showed PTT of 57.4, basic metabolic profile is normal except for low potassium of 3.0 bicarb is 16, renal profile is normal WBC count is 28.5 hemoglobin is 9.8 urine cultures are positive for Klebsiella pneumoniae. Nutrition hicks the patient is receiving vit al HP 10 cc/h. Patient remains in atrial fibrillation, rate seems to be reasonably controlled Objective - Vital Signs Vital signs: Vital Signs Temp 96.3 F L 12/09/23 08:00 Pulse 79 12/09/23 11:00 Resp 25 H 12/09/23 11:00 BP 105/54 12/09/23 11:00 Pulse Ox 92 L 12/09/23 11:00 FiO2 40 12/09/23 11:09 Intake & Output 12/08/23 12/09/23 12/09/23 18:59 06:59 18:59 Intake Total 5368.717 3582.719 1351.011 Output Total 757 396 210 Balance 4611.717 3186.719 1141.011 Weight 101.4 kg Intake: IV 4800.9 2700 1150 Albumin Human 25% 50 ml 100 50 In Empty Bag 1 bag @ 50 mls/hr IVPB Q1H [facility] Rx#: [id number] Dextrose 5% in Water 1, 1650 1800 300 000 ml @ 150 mls/hr IV . Q7H40M [facility] with Sodium Bicarb (1 Meq/ml) 150 ml Rx#:[id number] Magnesium Sulfate-D5w Pmx 100 100 1 gm In Dextrose/Water 1 100ml.bag @ 100 mls/hr IVPB ONCE ONE Rx#: [id number] Meropenem 1 gm In Sodium 199.9 99 100 Chloride 0.9% 100 ml @ 33 .3 mls/hr IVPB Q8HR [facility] Rx#:[id number] Potassium Chloride 20 meq 200 100 200 In Water For Injection 1 100ml.bag @ 50 mls/hr IVPB Q2H [facility] Rx#: [id number] Sodium Chloride 0.9% 1, 150 000 ml @ 150 mls/hr IV . Q6H40M [facility] Rx#:[id number] Sodium Chloride 0.9% 1, 1000 000 ml @ 999 mls/hr IV . Q1H1M [facility] Rx#:[id number] Sodium Chloride 0.9% 1, 1000 000 ml @ 999 mls/hr IV . Q1H1M [facility] Rx#:[id number] Vancomycin 1,500 mg In 501 501 500 Sodium Chloride 0.9% 500 ml 500 ml @ 167 mls/hr IVPB Q12HR [facility] Rx#: [id number] Intake, IV Titration 507.817 672.719 71.011 Amount Amiodarone 450 mg In 304.729 Dextrose 5% in Water 250 ml @ 0.5 MG/MIN 16.667 mls/hr IV .Q15H [facility] Rx#: [id number] Heparin Sod,Pork in 0.45% 70.5 46.228 NaCl 25,000 unit In 0.45 % NaCl 1 250ml.bag @ 10. 661 UNITS/KG/HR 10 mls/hr IV .Q24H [facility] Rx#: [id number] Norepinephrine 8 mg In 233.835 74.744 28.677 Sodium Chloride 0.9% 250 ml @ 0.03 MCG/KG/MIN 5. 445 mls/hr IV .Q24H [facility] Rx#:[id number] Vasopressin 20 unit In 43.452 51 Sodium Chloride 0.9% 50 ml @ 0.03 UNITS/MIN 4.59 mls/hr IV .Q11H7M [facility] Rx# :[id number] propofoL 1,000 mg In 160.030 196.018 42.334 Empty Bag 1 bag @ 15 MCG/ KG/MIN 7.348 mls/hr IV . [id number] [facility] Rx#:[id number] Tube Feeding 30 120 40 Other 30 90 90 Output: Gastric Drainage 150 Drainage 20 100 Abdomen 20 100 Urine 587 396 110 Other: Voiding Method Indwelling Catheter Indwelling Catheter Indwelling Catheter ABP, PAP, CO, CI - Last Documented Arterial Blood Pressure 135/55 - Exam General: Reveals 71-year-old female intubated mechanically ventilated sedated Skin: Skin is warm and dry and no rashes or lesions are noted. Eye: Pupils are equal, round and reactive to light, extra-ocular movements are intact; there is normal conjunctiva bilaterally. Ears, nose, mouth and throat: There are moist mucous membranes and no oral lesions. Endotracheal tube and orogastric tube are intact Neck: The neck is supple, there is no tenderness or JVD. Cardiovascular: There is a regular rate and rhythm. No murmur, rub or gallop is appreciated. Respiratory: Chest breath sound bilaterally no crackles rhonchi or wheezes Gastrointestinal: Bowel sounds are hypoactive/absent. There is a mid abdominal wound and the surgical scar is clean and the wound VAC has been applied. No direct tenderness. No rebound tenderness. Musculoskeletal: Right above-knee amputation is noted otherwise unremarkable. Neurological: Could not assess, patient is sedated. Psychiatric: Not assessed - Labs CBC & Chem 7: 12/09/23 02:30 12/09/23 02:30 Labs: Abnormal Lab Results - Last 24 Hours (Table) 12/04/23 12/08/23 12/08/23 Range/Units 18:28 15:39 17:40 WBC (3.8-10.6) k/uL RBC (3.80-5.40) m/uL Hgb (11.4-16.0) gm/dL Hct (34.0-46.0) % RDW (11.5-15.5) % Neutrophils # (1.3-7.7) k/uL PT (10.0-12.5) sec INR (<1.2) APTT (22.0-30.0) sec ABG pO2 (83-108) mmHg ABG O2 Saturation (94-97) % Potassium 3.4 L (3.5-5.1) mmol/L Chloride 122 H (98-107) mmol/L Carbon Dioxide 15 L (22-30) mmol/L Glucose 211 H (74-99) mg/dL POC Glucose (mg/dL) 201 H (70-110) mg/dL Calcium 6.6 L (8.4-10.2) mg/dL Delta Bilirubin (0.0-0.2) mg/dL Alkaline Phosphatase 134 H (38-126) U/L Total Protein 3.4 L (6.3-8.2) g/dL Albumin 1.2 L (3.5-5.0) g/dL Crossmatch See Detail 12/08/23 12/08/23 12/09/23 Range/Units 17:40 21:23 02:30 WBC 28.5 H (3.8-10.6) k/uL RBC 3.74 L (3.80-5.40) m/uL Hgb 9.8 L D (11.4-16.0) gm/dL Hct 31.1 L (34.0-46.0) % RDW 21.3 H (11.5-15.5) % Neutrophils # 25.3 H (1.3-7.7) k/uL PT (10.0-12.5) sec INR (<1.2) APTT >200.0 H* (22.0-30.0) sec ABG pO2 (83-108) mmHg ABG O2 Saturation (94-97) % Potassium (3.5-5.1) mmol/L Chloride (98-107) mmol/L Carbon Dioxide (22-30) mmol/L Glucose (74-99) mg/dL POC Glucose (mg/dL) 244 H (70-110) mg/dL Calcium (8.4-10.2) mg/dL Delta Bilirubin (0.0-0.2) mg/dL Alkaline Phosphatase (38-126) U/L Total Protein (6.3-8.2) g/dL Albumin (3.5-5.0) g/dL Crossmatch 12/09/23 12/09/23 12/09/23 Range/Units 02:30 02:30 02:30 WBC (3.8-10.6) k/uL RBC (3.80-5.40) m/uL Hgb (11.4-16.0) gm/dL Hct (34.0-46.0) % RDW (11.5-15.5) % Neutrophils # (1.3-7.7) k/uL PT 14.7 H (10.0-12.5) sec INR 1.4 H (<1.2) APTT 85.0 H (22.0-30.0) sec ABG pO2 (83-108) mmHg ABG O2 Saturation (94-97) % Potassium 3.0 L (3.5-5.1) mmol/L Chloride 117 H (98-107) mmol/L Carbon Dioxide 16 L (22-30) mmol/L Glucose 183 H (74-99) mg/dL POC Glucose (mg/dL) (70-110) mg/dL Calcium 6.6 L (8.4-10.2) mg/dL Delta Bilirubin 0.4 H (0.0-0.2) mg/dL Alkaline Phosphatase (38-126) U/L Total Protein 3.6 L (6.3-8.2) g/dL Albumin 1.5 L (3.5-5.0) g/dL Crossmatch 12/09/23 12/09/23 12/09/23 Range/Units 03:48 05:40 06:05 WBC (3.8-10.6) k/uL RBC (3.80-5.40) m/uL Hgb (11.4-16.0) gm/dL Hct (34.0-46.0) % RDW (11.5-15.5) % Neutrophils # (1.3-7.7) k/uL PT (10.0-12.5) sec INR (<1.2) APTT (22.0-30.0) sec ABG pO2 128 H (83-108) mmHg ABG O2 Saturation 98.0 H (94-97) % Potassium (3.5-5.1) mmol/L Chloride (98-107) mmol/L Carbon Dioxide (22-30) mmol/L Glucose (74-99) mg/dL POC Glucose (mg/dL) 205 H 163 H (70-110) mg/dL Calcium (8.4-10.2) mg/dL Delta Bilirubin (0.0-0.2) mg/dL Alkaline Phosphatase (38-126) U/L Total Protein (6.3-8.2) g/dL Albumin (3.5-5.0) g/dL Crossmatch 12/09/23 12/09/23 Range/Units 10:00 11:38 WBC (3.8-10.6) k/uL RBC (3.80-5.40) m/uL Hgb (11.4-16.0) gm/dL Hct (34.0-46.0) % RDW (11.5-15.5) % Neutrophils # (1.3-7.7) k/uL PT (10.0-12.5) sec INR (<1.2) APTT 57.4 H (22.0-30.0) sec ABG pO2 (83-108) mmHg ABG O2 Saturation (94-97) % Potassium (3.5-5.1) mmol/L Chloride (98-107) mmol/L Carbon Dioxide (22-30) mmol/L Glucose (74-99) mg/dL POC Glucose (mg/dL) 209 H (70-110) mg/dL Calcium (8.4-10.2) mg/dL Delta Bilirubin (0.0-0.2) mg/dL Alkaline Phosphatase (38-126) U/L Total Protein (6.3-8.2) g/dL Albumin (3.5-5.0) g/dL Crossmatch Microbiology - Last 24 Hours (Table) 12/07/23 11:32 Gram Stain - Preliminary Sputum 12/04/23 23:44 Urine Culture - Final Urine,Catheterized Klebsiella pneumoniae Assessment and Plan Assessment: Impression: Status post exploratory laparotomy colectomy and diverting colostomy and debridement of cutaneous fistula postoperative day #3 Abdominal sepsis and septic shock New onset atrial fibrillation with RVR Gram-negative bacteremia Klebsiella pneumonia urinary tract infection Leukocytosis secondary to above Acute hypoxic and hypercapnic respiratory failure secondary to above Left basilar atelectasis and effusion None anion gap metabolic acidosis, on bicarb drip. History of previous right above-knee amputation Left buttocks unstageable pressure ulcer Hydropic gallbladder with multiple gallstones Adrenal nodules Recommendation: Continue ventilatory support, cut down FiO2 down to 40%. Continue hemodynamic support, patient is requiring norepinephrine and vasopressin Continue antibiotics as per infectious disease on the case. Patient is now on Merrem and vancomycin Continue nutritional support Continue bicarb drip for now. Continue GI and DVT prophylaxis continue amiodarone and heparin for atrial fibrillation Daily assessment of weaning and sedation interruption including today with assessment of mental status Continue to monitor in the ICU Daily labs and daily x-rays of the chest while intubated and mechanically ventilated Patient remains critically ill. Critical care time is over 30 minutes Time with Patient: Greater than 30
--- NOTE | 2023-12-09 14:34 | P.PN ---
Subjective Progress Note Date: 12/09/23 CHIEF COMPLAINT: Perforated diverticular disease with fistulization to the skin HISTORY OF PRESENT ILLNESS: The patient is a 84-djkn-dna-year-old female status post exploratory laparotomy, Magaña's procedure for colocutaneous fistula and septic shock. Patient remains in the ICU intubated and on mechanical ventilation. Patient off of sedation this morning. She still requiring the levo and vasopressin. Also remains on IV heparin. She did have SVT yesterday. She has follow-up with cardiology. They did start her on tube feeds at 10 mL/h. Afebrile. WBC is down from 33-28 hemoglobin 12 down to 9.8 PHYSICAL EXAM: VITAL SIGNS: Reviewed GENERAL: no acute distress. HEENT: No sclera icterus. Extraocular movements grossly intact. Moist buccal mucosa. Head is atraumatic, normocephalic. Hears conversational speech. No nasal drainage. NECK: Supple without lymphadenopathy. CHEST: Non-labored respirations and equal bilateral excursions. CARDIOVASCULAR: Palpable 2+ radial pulses. ABDOMEN: Soft. Nondistended. Prevana wound vac intact and to wall suction. Stoma beefy red. Stool in ostomy bag MUSCULOSKELETAL: No clubbing or cyanosis. NEUROLOGIC: No focal or lateralizing signs. Cranial nerves II through XII grossly intact. PSYCH: Intubated SKIN: Well perfused. Good skin turgor. ASSESSMENT: 1. 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 Sensorineural hearing loss, moderate to extreme 3. No previous medical care 4. Severe iron deficiency anemia 5. Generalized malnutrition 6. Oliguric PLAN: -Continue ICU management -Vent management per critical care service -Continue tube feeds through NG tube -Continue Prevana wound VAC system to high wall suction -Continue pain management -Continue antibiotics Physician Computer System Specialist note has been reviewed by physician. Signing provider agrees with the documented findings, assessment, and plan of care. Objective - Vital Signs Vital signs: Vital Signs Temp 96.7 F L 12/09/23 12:00 Pulse 81 12/09/23 13:45 Resp 39 H 12/09/23 13:45 BP 118/60 12/09/23 13:45 Pulse Ox 97 12/09/23 13:45 FiO2 40 12/09/23 12:00 Intake & Output 12/08/23 12/09/23 12/09/23 18:59 06:59 18:59 Intake Total 5368.717 3582.719 1515.574 Output Total 757 396 270 Balance 4611.717 3186.719 1245.574 Weight 101.4 kg 101.4 kg Intake: IV 4800.9 2700 1200 Albumin Human 25% 50 ml 100 100 In Empty Bag 1 bag @ 50 mls/hr IVPB Q1H [facility] Rx#: [id number] Dextrose 5% in Water 1, 1650 1800 300 000 ml @ 150 mls/hr IV . Q7H40M [facility] with Sodium Bicarb (1 Meq/ml) 150 ml Rx#:[id number] Magnesium Sulfate-D5w Pmx 100 100 1 gm In Dextrose/Water 1 100ml.bag @ 100 mls/hr IVPB ONCE ONE Rx#: [id number] Meropenem 1 gm In Sodium 199.9 99 100 Chloride 0.9% 100 ml @ 33 .3 mls/hr IVPB Q8HR [facility] Rx#:[id number] Potassium Chloride 20 meq 200 100 200 In Water For Injection 1 100ml.bag @ 50 mls/hr IVPB Q2H [facility] Rx#: [id number] Sodium Chloride 0.9% 1, 150 000 ml @ 150 mls/hr IV . Q6H40M [facility] Rx#:[id number] Sodium Chloride 0.9% 1, 1000 000 ml @ 999 mls/hr IV . Q1H1M [facility] Rx#:[id number] Sodium Chloride 0.9% 1, 1000 000 ml @ 999 mls/hr IV . Q1H1M [facility] Rx#:[id number] Vancomycin 1,500 mg In 501 501 500 Sodium Chloride 0.9% 500 ml 500 ml @ 167 mls/hr IVPB Q12HR [facility] Rx#: [id number] Intake, IV Titration 507.817 672.719 95.574 Amount Amiodarone 450 mg In 304.729 Dextrose 5% in Water 250 ml @ 0.5 MG/MIN 16.667 mls/hr IV .Q15H [facility] Rx#: [id number] Heparin Sod,Pork in 0.45% 70.5 46.228 NaCl 25,000 unit In 0.45 % NaCl 1 250ml.bag @ 10. 661 UNITS/KG/HR 10 mls/hr IV .Q24H [facility] Rx#: [id number] Norepinephrine 8 mg In 233.835 74.744 53.240 Sodium Chloride 0.9% 250 ml @ 0.03 MCG/KG/MIN 5. 445 mls/hr IV .Q24H [facility] Rx#:[id number] Vasopressin 20 unit In 43.452 51 Sodium Chloride 0.9% 50 ml @ 0.03 UNITS/MIN 4.59 mls/hr IV .Q11H7M [facility] Rx# :[id number] propofoL 1,000 mg In 160.030 196.018 42.334 Empty Bag 1 bag @ 15 MCG/ KG/MIN 7.348 mls/hr IV . [id number] [facility] Rx#:[id number] Tube Feeding 30 120 80 Other 30 90 140 Output: Gastric Drainage 150 Drainage 20 100 Abdomen 20 100 Urine 587 396 170 Other: Voiding Method Indwelling Catheter Indwelling Catheter Indwelling Catheter ABP, PAP, CO, CI - Last Documented Arterial Blood Pressure 112/43 - Labs CBC & Chem 7: 12/09/23 02:30 12/09/23 02:30 Labs: Abnormal Lab Results - Last 24 Hours (Table) 12/04/23 12/08/23 12/08/23 Range/Units 18:28 15:39 17:40 WBC (3.8-10.6) k/uL RBC (3.80-5.40) m/uL Hgb (11.4-16.0) gm/dL Hct (34.0-46.0) % RDW (11.5-15.5) % Neutrophils # (1.3-7.7) k/uL PT (10.0-12.5) sec INR (<1.2) APTT (22.0-30.0) sec ABG pO2 (83-108) mmHg ABG O2 Saturation (94-97) % Potassium 3.4 L (3.5-5.1) mmol/L Chloride 122 H (98-107) mmol/L Carbon Dioxide 15 L (22-30) mmol/L Glucose 211 H (74-99) mg/dL POC Glucose (mg/dL) 201 H (70-110) mg/dL Calcium 6.6 L (8.4-10.2) mg/dL Delta Bilirubin (0.0-0.2) mg/dL Alkaline Phosphatase 134 H (38-126) U/L Total Protein 3.4 L (6.3-8.2) g/dL Albumin 1.2 L (3.5-5.0) g/dL Crossmatch See Detail 12/08/23 12/08/23 12/09/23 Range/Units 17:40 21:23 02:30 WBC 28.5 H (3.8-10.6) k/uL RBC 3.74 L (3.80-5.40) m/uL Hgb 9.8 L D (11.4-16.0) gm/dL Hct 31.1 L (34.0-46.0) % RDW 21.3 H (11.5-15.5) % Neutrophils # 25.3 H (1.3-7.7) k/uL PT (10.0-12.5) sec INR (<1.2) APTT >200.0 H* (22.0-30.0) sec ABG pO2 (83-108) mmHg ABG O2 Saturation (94-97) % Potassium (3.5-5.1) mmol/L Chloride (98-107) mmol/L Carbon Dioxide (22-30) mmol/L Glucose (74-99) mg/dL POC Glucose (mg/dL) 244 H (70-110) mg/dL Calcium (8.4-10.2) mg/dL Delta Bilirubin (0.0-0.2) mg/dL Alkaline Phosphatase (38-126) U/L Total Protein (6.3-8.2) g/dL Albumin (3.5-5.0) g/dL Crossmatch 12/09/23 12/09/23 12/09/23 Range/Units 02:30 02:30 02:30 WBC (3.8-10.6) k/uL RBC (3.80-5.40) m/uL Hgb (11.4-16.0) gm/dL Hct (34.0-46.0) % RDW (11.5-15.5) % Neutrophils # (1.3-7.7) k/uL PT 14.7 H (10.0-12.5) sec INR 1.4 H (<1.2) APTT 85.0 H (22.0-30.0) sec ABG pO2 (83-108) mmHg ABG O2 Saturation (94-97) % Potassium 3.0 L (3.5-5.1) mmol/L Chloride 117 H (98-107) mmol/L Carbon Dioxide 16 L (22-30) mmol/L Glucose 183 H (74-99) mg/dL POC Glucose (mg/dL) (70-110) mg/dL Calcium 6.6 L (8.4-10.2) mg/dL Delta Bilirubin 0.4 H (0.0-0.2) mg/dL Alkaline Phosphatase (38-126) U/L Total Protein 3.6 L (6.3-8.2) g/dL Albumin 1.5 L (3.5-5.0) g/dL Crossmatch 12/09/23 12/09/23 12/09/23 Range/Units 03:48 05:40 06:05 WBC (3.8-10.6) k/uL RBC (3.80-5.40) m/uL Hgb (11.4-16.0) gm/dL Hct (34.0-46.0) % RDW (11.5-15.5) % Neutrophils # (1.3-7.7) k/uL PT (10.0-12.5) sec INR (<1.2) APTT (22.0-30.0) sec ABG pO2 128 H (83-108) mmHg ABG O2 Saturation 98.0 H (94-97) % Potassium (3.5-5.1) mmol/L Chloride (98-107) mmol/L Carbon Dioxide (22-30) mmol/L Glucose (74-99) mg/dL POC Glucose (mg/dL) 205 H 163 H (70-110) mg/dL Calcium (8.4-10.2) mg/dL Delta Bilirubin (0.0-0.2) mg/dL Alkaline Phosphatase (38-126) U/L Total Protein (6.3-8.2) g/dL Albumin (3.5-5.0) g/dL Crossmatch 12/09/23 12/09/23 Range/Units 10:00 11:38 WBC (3.8-10.6) k/uL RBC (3.80-5.40) m/uL Hgb (11.4-16.0) gm/dL Hct (34.0-46.0) % RDW (11.5-15.5) % Neutrophils # (1.3-7.7) k/uL PT (10.0-12.5) sec INR (<1.2) APTT 57.4 H (22.0-30.0) sec ABG pO2 (83-108) mmHg ABG O2 Saturation (94-97) % Potassium (3.5-5.1) mmol/L Chloride (98-107) mmol/L Carbon Dioxide (22-30) mmol/L Glucose (74-99) mg/dL POC Glucose (mg/dL) 209 H (70-110) mg/dL Calcium (8.4-10.2) mg/dL Delta Bilirubin (0.0-0.2) mg/dL Alkaline Phosphatase (38-126) U/L Total Protein (6.3-8.2) g/dL Albumin (3.5-5.0) g/dL Crossmatch Microbiology - Last 24 Hours (Table) 12/07/23 11:32 Gram Stain - Preliminary Sputum 12/04/23 23:44 Urine Culture - Final Urine,Catheterized Klebsiella pneumoniae
--- NOTE | 2023-12-09 15:41 | P.PN ---
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 The surgery was complicated by cardiogenic shock. The patient currently is on 2 vasopressors including vasopressin's as well as norepinephrine. We initially seen the patient and signed off on her before. We saw her for preop cardiac assessment for noncardiac surgery. We requested to see the patient again because she developed atrial fibrillation with RVR. Her pressure continues to be low. She was started on amiodarone IV which I would agree on. She also was started on heparin IV which I would agree on. The echo during the hospital stay showed mildly impaired LV function with EF around 45%. Another echo was requested and performed and we are in process to have the results. The examination is remarkable for the patient being intubated on mechanical ventilation currently on 2 vasopressors as well as regular rate and rhythm with a distant heart sounds and diminished breathing sounds bilaterally Progress note 12/09/2023 Patient is on Levophed 0.05, vasopressin 0.03. Patient has continued to be in sinus rhythm in last 24 hours with no atrial fibrillation activity. Left ostomy and a midline in place. Echo shows an EF of 50%, mild to moderate MR Labs shows hemoglobin 9.8, sodium 141, potassium 3.0, creatinine 0.6 Assessment Perforated diverticulitis complicated by [place] cutaneous fistula status post surgery Septic shock Paroxysmal atrial fibrillation and this is a new diagnosis to the patient Multiple comorbid conditions Plan Continue amiodarone 400 mg twice daily for 7 days (12/15/23). After 7 days cut down to 200 mg twice daily. Continue IV heparin drip. Once patient is extubated and have more recovery and we do not anticipate any procedures, will transition to oral anticoagulation Due to being off pressors. Once off pressors, will add low-dose metoprolol Objective - Vital Signs Vital signs: Vital Signs Temp 96.7 F L 12/09/23 12:00 Pulse 84 12/09/23 15:00 Resp 25 H 12/09/23 15:00 BP 119/54 12/09/23 15:00 Pulse Ox 97 12/09/23 15:00 FiO2 40 12/09/23 15:00 Intake & Output 12/08/23 12/09/23 12/09/23 18:59 06:59 18:59 Intake Total 5368.717 3582.719 2305.574 Output Total 757 396 330 Balance 4611.717 3186.719 1975.574 Weight 101.4 kg 101.4 kg Intake: IV 4800.9 2700 1950 Albumin Human 25% 50 ml 100 100 In Empty Bag 1 bag @ 50 mls/hr IVPB Q1H [facility] Rx#: [id number] Dextrose 5% in Water 1, 1650 1800 1050 000 ml @ 150 mls/hr IV . Q7H40M [facility] with Sodium Bicarb (1 Meq/ml) 150 ml Rx#:[id number] Magnesium Sulfate-D5w Pmx 100 100 1 gm In Dextrose/Water 1 100ml.bag @ 100 mls/hr IVPB ONCE [facility] Rx#: [id number] Meropenem 1 gm In Sodium 199.9 99 100 Chloride 0.9% 100 ml @ 33 .3 mls/hr IVPB Q8HR [facility] Rx#:[id number] Potassium Chloride 20 meq 200 100 200 In Water For Injection 1 100ml.bag @ 50 mls/hr IVPB Q2H [facility] Rx#: [id number] Sodium Chloride 0.9% 1, 150 000 ml @ 150 mls/hr IV . Q6H40M [facility] Rx#:[id number] Sodium Chloride 0.9% 1, 1000 000 ml @ 999 mls/hr IV . Q1H1M [facility] Rx#:[id number] Sodium Chloride 0.9% 1, 1000 000 ml @ 999 mls/hr IV . Q1H1M [facility] Rx#:[id number] Vancomycin 1,500 mg In 501 501 500 Sodium Chloride 0.9% 500 ml 500 ml @ 167 mls/hr IVPB Q12HR [facility] Rx#: [id number] Intake, IV Titration 507.817 672.719 95.574 Amount Amiodarone 450 mg In 304.729 Dextrose 5% in Water 250 ml @ 0.5 MG/MIN 16.667 mls/hr IV .Q15H [facility] Rx#: [id number] Heparin Sod,Pork in 0.45% 70.5 46.228 NaCl 25,000 unit In 0.45 % NaCl 1 250ml.bag @ 10. 661 UNITS/KG/HR 10 mls/hr IV .Q24H [facility] Rx#: [id number] Norepinephrine 8 mg In 233.835 74.744 53.240 Sodium Chloride 0.9% 250 ml @ 0.03 MCG/KG/MIN 5. 445 mls/hr IV .Q24H [facility] Rx#:[id number] Vasopressin 20 unit In 43.452 51 Sodium Chloride 0.9% 50 ml @ 0.03 UNITS/MIN 4.59 mls/hr IV .Q11H7M [facility] Rx# :[id number] propofoL 1,000 mg In 160.030 196.018 42.334 Empty Bag 1 bag @ 15 MCG/ KG/MIN 7.348 mls/hr IV . [id number] [facility] Rx#:[id number] Tube Feeding 30 120 120 Other 30 90 140 Output: Gastric Drainage 150 Drainage 20 100 Abdomen 20 100 Urine 587 396 230 Other: Voiding Method Indwelling Catheter Indwelling Catheter Indwelling Catheter ABP, PAP, CO, CI - Last Documented Arterial Blood Pressure 112/44 - Labs CBC & Chem 7: 12/09/23 02:30 12/09/23 02:30 Labs: Abnormal Lab Results - Last 24 Hours (Table) 12/04/23 12/08/23 12/08/23 Range/Units 18:28 15:39 17:40 WBC (3.8-10.6) k/uL RBC (3.80-5.40) m/uL Hgb (11.4-16.0) gm/dL Hct (34.0-46.0) % RDW (11.5-15.5) % Neutrophils # (1.3-7.7) k/uL PT (10.0-12.5) sec INR (<1.2) APTT (22.0-30.0) sec ABG pO2 (83-108) mmHg ABG O2 Saturation (94-97) % Potassium 3.4 L (3.5-5.1) mmol/L Chloride 122 H (98-107) mmol/L Carbon Dioxide 15 L (22-30) mmol/L Glucose 211 H (74-99) mg/dL POC Glucose (mg/dL) 201 H (70-110) mg/dL Calcium 6.6 L (8.4-10.2) mg/dL Delta Bilirubin (0.0-0.2) mg/dL Alkaline Phosphatase 134 H (38-126) U/L Total Protein 3.4 L (6.3-8.2) g/dL Albumin 1.2 L (3.5-5.0) g/dL Crossmatch See Detail 12/08/23 12/08/23 12/09/23 Range/Units 17:40 21:23 02:30 WBC 28.5 H (3.8-10.6) k/uL RBC 3.74 L (3.80-5.40) m/uL Hgb 9.8 L D (11.4-16.0) gm/dL Hct 31.1 L (34.0-46.0) % RDW 21.3 H (11.5-15.5) % Neutrophils # 25.3 H (1.3-7.7) k/uL PT (10.0-12.5) sec INR (<1.2) APTT >200.0 H* (22.0-30.0) sec ABG pO2 (83-108) mmHg ABG O2 Saturation (94-97) % Potassium (3.5-5.1) mmol/L Chloride (98-107) mmol/L Carbon Dioxide (22-30) mmol/L Glucose (74-99) mg/dL POC Glucose (mg/dL) 244 H (70-110) mg/dL Calcium (8.4-10.2) mg/dL Delta Bilirubin (0.0-0.2) mg/dL Alkaline Phosphatase (38-126) U/L Total Protein (6.3-8.2) g/dL Albumin (3.5-5.0) g/dL Crossmatch 12/09/23 12/09/23 12/09/23 Range/Units 02:30 02:30 02:30 WBC (3.8-10.6) k/uL RBC (3.80-5.40) m/uL Hgb (11.4-16.0) gm/dL Hct (34.0-46.0) % RDW (11.5-15.5) % Neutrophils # (1.3-7.7) k/uL PT 14.7 H (10.0-12.5) sec INR 1.4 H (<1.2) APTT 85.0 H (22.0-30.0) sec ABG pO2 (83-108) mmHg ABG O2 Saturation (94-97) % Potassium 3.0 L (3.5-5.1) mmol/L Chloride 117 H (98-107) mmol/L Carbon Dioxide 16 L (22-30) mmol/L Glucose 183 H (74-99) mg/dL POC Glucose (mg/dL) (70-110) mg/dL Calcium 6.6 L (8.4-10.2) mg/dL Delta Bilirubin 0.4 H (0.0-0.2) mg/dL Alkaline Phosphatase (38-126) U/L Total Protein 3.6 L (6.3-8.2) g/dL Albumin 1.5 L (3.5-5.0) g/dL Crossmatch 12/09/23 12/09/23 12/09/23 Range/Units 03:48 05:40 06:05 WBC (3.8-10.6) k/uL RBC (3.80-5.40) m/uL Hgb (11.4-16.0) gm/dL Hct (34.0-46.0) % RDW (11.5-15.5) % Neutrophils # (1.3-7.7) k/uL PT (10.0-12.5) sec INR (<1.2) APTT (22.0-30.0) sec ABG pO2 128 H (83-108) mmHg ABG O2 Saturation 98.0 H (94-97) % Potassium (3.5-5.1) mmol/L Chloride (98-107) mmol/L Carbon Dioxide (22-30) mmol/L Glucose (74-99) mg/dL POC Glucose (mg/dL) 205 H 163 H (70-110) mg/dL Calcium (8.4-10.2) mg/dL Delta Bilirubin (0.0-0.2) mg/dL Alkaline Phosphatase (38-126) U/L Total Protein (6.3-8.2) g/dL Albumin (3.5-5.0) g/dL Crossmatch 12/09/23 12/09/23 Range/Units 10:00 11:38 WBC (3.8-10.6) k/uL RBC (3.80-5.40) m/uL Hgb (11.4-16.0) gm/dL Hct (34.0-46.0) % RDW (11.5-15.5) % Neutrophils # (1.3-7.7) k/uL PT (10.0-12.5) sec INR (<1.2) APTT 57.4 H (22.0-30.0) sec ABG pO2 (83-108) mmHg ABG O2 Saturation (94-97) % Potassium (3.5-5.1) mmol/L Chloride (98-107) mmol/L Carbon Dioxide (22-30) mmol/L Glucose (74-99) mg/dL POC Glucose (mg/dL) 209 H (70-110) mg/dL Calcium (8.4-10.2) mg/dL Delta Bilirubin (0.0-0.2) mg/dL Alkaline Phosphatase (38-126) U/L Total Protein (6.3-8.2) g/dL Albumin (3.5-5.0) g/dL Crossmatch Microbiology - Last 24 Hours (Table) 12/07/23 11:32 Gram Stain - Preliminary Sputum Sputum Culture - Preliminary Romelia albicans 12/04/23 23:44 Urine Culture - Final Urine,Catheterized Klebsiella pneumoniae
[2023-12-09 15:49] LABS: African American GFR (CKD) >90 (>60 ml/min/1.73 sqM); Anion Gap 4 mmol/L; Blood Urea Nitrogen 14 mg/dL (7-17); Calcium 6.8 mg/dL (8.4-10.2); Carbon Dioxide 20 mmol/L (22-30); Chloride 115 mmol/L (98-107); Glucose 114 mg/dL (74-99); Magnesium 1.8 mg/dL (1.6-2.3); Non-African American GFR(CKD) >90 (>60 ml/min/1.73 sqM); Potassium 3.5 mmol/L (3.5-5.1); Sodium 139 mmol/L (137-145)
[2023-12-09] MEDS ORDERED: Magnesium Replacement Protocol 1 EACH MISC MISCELLANE PRN (16:36)
[2023-12-09] MEDS: MAGNESIUM SULFATE-D5W PMX 1 GM in DEXTROSE/WATER 1 100ML.BAG IVPB ONE (16:47)
[2023-12-09] MEDS: POTASSIUM BICARBONATE/CIT AC 20 MEQ TABLET.EFF NG-TUBE SCH (16:47)
[2023-12-09 18:09] LABS: Glucose,Whole Blood 145 mg/dL (70-110)
--- NOTE | 2023-12-09 19:34 | P.PN ---
Subjective This is a pleasant 73 years old female who presents to the emergency room for lower abdominal fistula drainage, associated with generalized weakness. Patient looks awake alert but tired looking, pale. Feels generally weak. N has mild generalized abdominal pain and tenderness. No rebound tenderness. Blood with malodorous left lower abdominal fistula drainage with fecal material coming out. Patient also with right rotation. Patient also with unstageable sacral pressure ulcer. With some evidence of cellulitis. Patient is mildly confused. But no headache or weakness in upper or lower patient was hypotensive with a blood pressure/42, currently slightly better 96/43. Potassium is low 2.9, WBC elevated 23,000, hemoglobin 7.4. Creatinine 0.7. Liver enzymes unremarkable. CT of the abdomen pelvis showing sigmoid diverticulitis and proctitis. 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 Please refer to the report for more details. Patient was ordered received normal saline boluses. Currently on Normosol at 130 mL/h She received 1 dose of Zosyn and started on Flagyl. We are going to add cefepime for gram-negative coverage. 12/05/2023 Patient is awake and alert, generally weak and tired, mildly drowsy Denies abdominal pain or tenderness, she has fistula in the left lower abdomen She denies chest pain or dyspnea. No headache dizziness weakness or numbness. No breathing difficulty. And currently she is saturating well on room air. Blood pressure is still on the low side.but is improving while on IV fluid Glucose 65 and her fluids changed to D5 normal saline at 1 30 mL/h She is currently covered with cefepime and IV Flagyl and IV Protonix She has leukocytosis of 23,000, hemoglobin stable 7.9, low potassium been replaced. Magnesium is normal 2.0. B12 541, Elevated ESR 75 and CRP 25 Patient at moderate risk for her multiple medical problems. Because of this ec hocardiogram was requested and cardiology consulted for preop evaluation. 12/06/2023 Patient remains awake and oriented, mildly lethargic Patient today was supposed to go for surgery to fix her enteric fistula Blood pressure was on the low side this morning I got a call from the bedside nurse blood pressure was 68/32, a bolus of normal saline is provided as well as midodrine Blood pressure a little low after first bolus, where going to give her another bolus of 1 L follow-up with the blood pressure. 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 [employer] eval into the patient for preop assessment and there is no contraindication to proceed with surgery. Patient remains on normal saline with 30 mL/h, cefepime, IV Flagyl and IV Protonix 12/07/2023 Patient s/p sigmoid colectomy and taken down the fistula with peritoneal lavage, creatinine descending colostomy pouch with rectum Gabriel procedure by surgery team Postoperatively and perioperatively patient was hypotensive, after the procedure she got intubated and sent to the intensive care unit and started on pressors Patient remains on excessive hydration She is making about 10 to 20 mL of urine output She remains on broad-spectrum antibiotics with IV cefepime and Flagyl Patient labs and vitals are reviewed 12/08/2023 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 Patient was started on amiodarone and heparin drip Also patient abdomen soft but she is becoming more anuric She still intubated on mechanical ventilation with assist-control Her leukocytosis is worse at 33,000 urine cultures grewing Klebsiella. Blood cultures positive for gram negative bacilli Her antibiotics was adjusted to meropenem and IV vancomycin. Her fluids running normal saline changed to sodium bicarb at 150 mL/h She is still on IV Protonix Her albumin is low so they are going to give her 1 dose of albumin IV if no imp rovement 12/09/2023 Patient remains in the ICU intubated and sedated She was still on pressors this morning on Levophed at 0.09, bicarbonate drip at 150 mL also vasopressin 0.03. She still has wound VAC in his abdomen. Patient blood pressure started improving 115/45 Potassium 3.4, WBC trending down to 28,000, hemoglobin 9.8. Albumin is 1.5 and patient 2 more bags of albumin 25 g to support her system as she has anasarca and significant swelling of the lower extremities. Patient remains also on broad-spectrum antibiotics with IV vancomycin and meropenem. She is also on Protonix. Discussed with staff. Review of systems: Unable to obtain due to intubation Active Medications Generic Name Dose Route Start Last Admin Trade Name Freq PRN Reason Stop Dose Admin Acetaminophen 650 mg 12/04/23 18:04 Acetaminophen Tab 325 Mg Tab PO Q6HR PRN Mild Pain or Fever > 100.5 Amiodarone HCl 400 mg 12/09/23 09:00 12/09/23 08:31 Amiodarone 200 Mg Tab NG-TUBE 12/14/23 21:00 400 mg BID [facility] Administration Chlorhexidine Gluconate 15 ml 12/06/23 21:00 12/09/23 08:31 Chlorhexidine Gluconate 15 Ml Cup MUCOUS MEM 15 ml BID [facility] Administration Heparin Sodium (Porcine) 0 unit 12/08/23 11:28 Heparin Sodium 1,000 Un/Ml (10ml Vl) IV PER PROTOCOL PRN Low PTT Protocol Hydromorphone HCl 1 mg 12/07/23 07:57 12/08/23 03:00 Hydromorphone 1 Mg/Ml 1 Ml Syringe IVP 1 mg Q3HR PRN Administration Pain Propofol 1,000 mg/ IV Solution 100 mls @ 7.348 mls/hr 12/06/23 20:00 12/09/23 17:03 IV 15 mcg/kg/min .[id number] [facility] 7.348 mls/hr Administration Protocol 15 MCG/KG/MIN Norepinephrine Bitartrate 8 mg 258 mls @ 5.445 mls/hr 12/08/23 06:00 12/09/23 18:59 / Sodium Chloride IV 0.03 mcg/kg/min .Q24H [facility] 5.445 mls/hr Titration Protocol 0.03 MCG/KG/MIN Meropenem 1 gm/ Sodium 100 mls @ 33.3 mls/hr 12/08/23 08:00 12/09/23 16:13 Chloride IVPB 33.3 mls/hr Q8HR [facility] Administration Protocol Vasopressin 20 unit/ Sodium 51 mls @ 4.59 mls/hr 12/08/23 08:00 12/09/23 16:12 Chloride IV 0.03 units/min .Q11H7M [facility] 4.59 mls/hr Administration Protocol 0.03 UNITS/MIN Sodium Bicarbonate 150 ml/ 1,150 mls @ 150 mls/hr 12/08/23 08:00 12/09/23 14:00 Dextrose/Water IV 150 mls/hr .Q7H40M [facility] Administration Vancomycin HCl 1,500 mg/ 500 mls @ 167 mls/hr 12/08/23 09:00 12/09/23 08:32 Sodium Chloride IVPB 167 mls/hr Q12HR [facility] Administration Heparin Sodium/Sodium Chloride 250 mls @ 10 mls/hr 12/08/23 11:30 12/09/23 11:40 25,000 unit/ Sodium Chloride IV Not Given .Q24H [facility] Protocol 10.661 UNITS/KG/HR Insulin Aspart 0 unit 12/09/23 12:00 12/09/23 18:19 Insulin Aspart (Novolog) 100 Unit/Ml Vial SQ Not Given Q6H [facility] Protocol Midodrine 5 mg 12/06/23 10:00 12/09/23 16:55 Midodrine 5 Mg Tab PO 5 mg AC-TID [facility] Administration Miscellaneous Information 1 each 12/04/23 19:17 Magnesium Replacement Protocol 1 Each Misc MISCELLANE DAILY PRN Per Protocol Protocol Miscellaneous Information 1 each 12/06/23 22:34 Potassium Replacement Protocol 1 Each Misc MISCELLANE DAILY PRN Per Protocol Protocol Miscellaneous Information 0 each 12/10/23 08:00 Vancomycin Trough Due 1 Each Misc MISCELLANE 12/10/23 08:01 DIRECTED ONE Miscellaneous Information 1 each 12/09/23 16:36 Magnesium Replacement Protocol 1 Each Misc MISCELLANE DAILY PRN Per Protocol Protocol Morphine Sulfate 4 mg 12/04/23 18:04 Morphine Sulfate 4 Mg/Ml Syringe IV Q4HR PRN Severe Pain (Scale 7 to 10) Naloxone HCl 0.2 mg 12/04/23 18:04 Naloxone 0.4 Mg/Ml 1 Ml Vial IV Q2M PRN Opioid Reversal Pantoprazole Sodium 40 mg 12/05/23 09:00 12/09/23 08:31 Pantoprazole 40 Mg/10 Ml Vial IVP 40 mg DAILY [facility] Administration Petrolatum 1 applic 12/09/23 03:33 Zinc Oxide Paste (Z-Guard) 1 Applic TOPICAL BID PRN [facility] Protocol Objective - Vital Signs Vital signs: Vital Signs Temp 96.3 F L 12/09/23 08:00 Pulse 78 12/09/23 10:15 Resp 27 H 12/09/23 10:15 BP 97/55 12/09/23 10:15 Pulse Ox 95 12/09/23 10:15 FiO2 40 12/09/23 08:17 Intake & Output 12/08/23 12/09/23 12/09/23 18:59 06:59 18:59 Intake Total 5368.717 3582.719 1291.011 Output Total 757 396 190 Balance 4611.717 3186.719 1101.011 Weight 101.4 kg Intake: IV 4800.9 2700 1100 Albumin Human 25% 50 ml 100 In Empty Bag 1 bag @ 50 mls/hr IVPB Q1H [facility] Rx#: [id number] Dextrose 5% in Water 1, 1650 1800 300 000 ml @ 150 mls/hr IV . Q7H40M [facility] with Sodium Bicarb (1 Meq/ml) 150 ml Rx#:[id number] Magnesium Sulfate-D5w Pmx 100 100 1 gm In Dextrose/Water 1 100ml.bag @ 100 mls/hr IVPB ONCE [facility] Rx#: [id number] Meropenem 1 gm In Sodium 199.9 99 100 Chloride 0.9% 100 ml @ 33 .3 mls/hr IVPB Q8HR [facility] Rx#:[id number] Potassium Chloride 20 meq 200 100 200 In Water For Injection 1 100ml.bag @ 50 mls/hr IVPB Q2H [facility] Rx#: [id number] Sodium Chloride 0.9% 1, 150 000 ml @ 150 mls/hr IV . Q6H40M [facility] Rx#:[id number] Sodium Chloride 0.9% 1, 1000 000 ml @ 999 mls/hr IV . Q1H1M [facility] Rx#:[id number] Sodium Chloride 0.9% 1, 1000 000 ml @ 999 mls/hr IV . Q1H1M [facility] Rx#:[id number] Vancomycin 1,500 mg In 501 501 500 Sodium Chloride 0.9% 500 ml 500 ml @ 167 mls/hr IVPB Q12HR [facility] Rx#: [id number] Intake, IV Titration 507.817 672.719 71.011 Amount Amiodarone 450 mg In 304.729 Dextrose 5% in Water 250 ml @ 0.5 MG/MIN 16.667 mls/hr IV .Q15H [facility] Rx#: [id number] Heparin Sod,Pork in 0.45% 70.5 46.228 NaCl 25,000 unit In 0.45 % NaCl 1 250ml.bag @ 10. 661 UNITS/KG/HR 10 mls/hr IV .Q24H [facility] Rx#: [id number] Norepinephrine 8 mg In 233.835 74.744 28.677 Sodium Chloride 0.9% 250 ml @ 0.03 MCG/KG/MIN 5. 445 mls/hr IV .Q24H [facility] Rx#:[id number] Vasopressin 20 unit In 43.452 51 Sodium Chloride 0.9% 50 ml @ 0.03 UNITS/MIN 4.59 mls/hr IV .Q11H7M [facility] Rx# :[id number] propofoL 1,000 mg In 160.030 196.018 42.334 Empty Bag 1 bag @ 15 MCG/ KG/MIN 7.348 mls/hr IV . [id number] [facility] Rx#:[id number] Tube Feeding 30 120 30 Other 30 90 90 Output: Gastric Drainage 150 Drainage 20 100 Abdomen 20 100 Urine 587 396 90 Other: Voiding Method Indwelling Catheter Indwelling Catheter Indwelling Catheter ABP, PAP, CO, CI - Last Documented Arterial Blood Pressure 98/43 - Labs CBC & Chem 7: 12/09/23 02:30 12/09/23 15:10 Labs: Abnormal Lab Results - Last 24 Hours (Table) 12/04/23 12/08/23 12/08/23 Range/Units 18:28 11:56 11:57 WBC (3.8-10.6) k/uL RBC (3.80-5.40) m/uL Hgb (11.4-16.0) gm/dL Hct (34.0-46.0) % RDW (11.5-15.5) % Neutrophils # (1.3-7.7) k/uL PT 14.1 H (10.0-12.5) sec INR 1.4 H (<1.2) APTT 42.9 H (22.0-30.0) sec ABG pO2 (83-108) mmHg ABG O2 Saturation (94-97) % Potassium (3.5-5.1) mmol/L Chloride (98-107) mmol/L Carbon Dioxide (22-30) mmol/L Glucose (74-99) mg/dL POC Glucose (mg/dL) 182 H (70-110) mg/dL Calcium (8.4-10.2) mg/dL Delta Bilirubin (0.0-0.2) mg/dL Alkaline Phosphatase (38-126) U/L Total Protein (6.3-8.2) g/dL Albumin (3.5-5.0) g/dL Crossmatch See Detail 12/08/23 12/08/23 12/08/23 Range/Units 15:39 17:40 17:40 WBC (3.8-10.6) k/uL RBC (3.80-5.40) m/uL Hgb (11.4-16.0) gm/dL Hct (34.0-46.0) % RDW (11.5-15.5) % Neutrophils # (1.3-7.7) k/uL PT (10.0-12.5) sec INR (<1.2) APTT >200.0 H* (22.0-30.0) sec ABG pO2 (83-108) mmHg ABG O2 Saturation (94-97) % Potassium 3.4 L (3.5-5.1) mmol/L Chloride 122 H (98-107) mmol/L Carbon Dioxide 15 L (22-30) mmol/L Glucose 211 H (74-99) mg/dL POC Glucose (mg/dL) 201 H (70-110) mg/dL Calcium 6.6 L (8.4-10.2) mg/dL Delta Bilirubin (0.0-0.2) mg/dL Alkaline Phosphatase 134 H (38-126) U/L Total Protein 3.4 L (6.3-8.2) g/dL Albumin 1.2 L (3.5-5.0) g/dL Crossmatch 12/08/23 12/09/23 12/09/23 Range/Units 21:23 02:30 02:30 WBC 28.5 H (3.8-10.6) k/uL RBC 3.74 L (3.80-5.40) m/uL Hgb 9.8 L D (11.4-16.0) gm/dL Hct 31.1 L (34.0-46.0) % RDW 21.3 H (11.5-15.5) % Neutrophils # 25.3 H (1.3-7.7) k/uL PT 14.7 H (10.0-12.5) sec INR 1.4 H (<1.2) APTT 85.0 H (22.0-30.0) sec ABG pO2 (83-108) mmHg ABG O2 Saturation (94-97) % Potassium (3.5-5.1) mmol/L Chloride (98-107) mmol/L Carbon Dioxide (22-30) mmol/L Glucose (74-99) mg/dL POC Glucose (mg/dL) 244 H (70-110) mg/dL Calcium (8.4-10.2) mg/dL Delta Bilirubin (0.0-0.2) mg/dL Alkaline Phosphatase (38-126) U/L Total Protein (6.3-8.2) g/dL Albumin (3.5-5.0) g/dL Crossmatch 12/09/23 12/09/23 12/09/23 Range/Units 02:30 02:30 03:48 WBC (3.8-10.6) k/uL RBC (3.80-5.40) m/uL Hgb (11.4-16.0) gm/dL Hct (34.0-46.0) % RDW (11.5-15.5) % Neutrophils # (1.3-7.7) k/uL PT (10.0-12.5) sec INR (<1.2) APTT (22.0-30.0) sec ABG pO2 (83-108) mmHg ABG O2 Saturation (94-97) % Potassium 3.0 L (3.5-5.1) mmol/L Chloride 117 H (98-107) mmol/L Carbon Dioxide 16 L (22-30) mmol/L Glucose 183 H (74-99) mg/dL POC Glucose (mg/dL) 205 H (70-110) mg/dL Calcium 6.6 L (8.4-10.2) mg/dL Delta Bilirubin 0.4 H (0.0-0.2) mg/dL Alkaline Phosphatase (38-126) U/L Total Protein 3.6 L (6.3-8.2) g/dL Albumin 1.5 L (3.5-5.0) g/dL Crossmatch 12/09/23 12/09/23 12/09/23 Range/Units 05:40 06:05 10:00 WBC (3.8-10.6) k/uL RBC (3.80-5.40) m/uL Hgb (11.4-16.0) gm/dL Hct (34.0-46.0) % RDW (11.5-15.5) % Neutrophils # (1.3-7.7) k/uL PT (10.0-12.5) sec INR (<1.2) APTT 57.4 H (22.0-30.0) sec ABG pO2 128 H (83-108) mmHg ABG O2 Saturation 98.0 H (94-97) % Potassium (3.5-5.1) mmol/L Chloride (98-107) mmol/L Carbon Dioxide (22-30) mmol/L Glucose (74-99) mg/dL POC Glucose (mg/dL) 163 H (70-110) mg/dL Calcium (8.4-10.2) mg/dL Delta Bilirubin (0.0-0.2) mg/dL Alkaline Phosphatase (38-126) U/L Total Protein (6.3-8.2) g/dL Albumin (3.5-5.0) g/dL Crossmatch Microbiology - Last 24 Hours (Table) 12/07/23 11:32 Gram Stain - Preliminary Sputum 12/04/23 23:44 Urine Culture - Final Urine,Catheterized Klebsiella pneumoniae Assessment and Plan Assessment: Acute sigmoid sigmoid colitis, diverticulitis with proctitis. With multiple entero-cutaneous and entero-vesical fistulas, including to the left lower abdominal wall. Septic shock Acute hypoxic respiratory failure requiring intubation and mechanical ventilation Gram-negative bacteremia A-fib and RVR Acute kidney injury, oliguric Acute anemia, unknown baseline, chronic microcytic Full-thickness sacral pressure ulcer, with no obvious osseous erosions. Metabolic encephalopathy, with possible elements of delirium Bilateral adrenal nodule, recommend follow-up CT in 3 months. Acute urinary tract infection/cystitis. Culture is growing Klebsiella Anasarca With severe hypoalbuminemia Plan: Continue with IV fluid and monitor vitals. 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
[2023-12-10 00:21] LABS: Glucose,Whole Blood 175 mg/dL (70-110)
[2023-12-10 04:22] LABS: African American GFR (CKD) >90 (>60 ml/min/1.73 sqM); Anion Gap -2 mmol/L; Blood Urea Nitrogen 13 mg/dL (7-17); Carbon Dioxide 27 mmol/L (22-30); Chloride 112 mmol/L (98-107); Glucose 144 mg/dL (74-99); Magnesium 1.8 mg/dL (1.6-2.3); Non-African American GFR(CKD) >90 (>60 ml/min/1.73 sqM); Potassium 2.8 mmol/L (3.5-5.1); Sodium 137 mmol/L (137-145)
[2023-12-10 04:40] LABS: Calcium 6.4 mg/dL (8.4-10.2)
[2023-12-10] MEDS: MAGNESIUM SULFATE-D5W PMX 1 GM in DEXTROSE/WATER 1 100ML.BAG IVPB ONE ×2 (04:49→22:10)
[2023-12-10] MEDS: POTASSIUM CHLORIDE 20 MEQ in WATER FOR INJECTION 1 100ML.BAG IVPB SCH (04:49)
[2023-12-10 05:13] LABS: Anisocytosis Moderate; Basophils % (A) 0 %; Eosinophils # (A) 0.2 k/uL (0-0.7); Eosinophils % (A) 1 %; HCT 28.1 % (34.0-46.0); HGB 9.1 gm/dL (11.4-16.0); Hypochromasia Marked; Lymphocytes # (A) 1.5 k/uL (1.0-4.8); Lymphocytes % (A) 8 %; MCH 26.2 pg (25.0-35.0); MCHC 32.5 g/dL (31.0-37.0); MCV 80.7 fL (80.0-100.0); Mean Platelet Volume 8.1; Microcytosis Slight; Monocytes # (A) 0.9 k/uL (0-1.0); Monocytes % (A) 4 %; Neutrophils # (A) 17.1 k/uL (1.3-7.7); Neutrophils % (A) 87 %; Platelet Count 253 k/uL (150-450); Poikilocytosis Slight; RBC 3.49 m/uL (3.80-5.40); RDW 21.3 % (11.5-15.5); WBC 19.7 k/uL (3.8-10.6)
[2023-12-10] MEDS: CALCIUM GLUCONATE IN NACL 1 GM in SALINE 1 100ML.BAG IVPB ONE (06:11)
[2023-12-10] MEDS: DEXTROSE 5% IN WATER 100 ML with AMIODARONE 150 MG IV ONE (06:16)
[2023-12-10 06:43] LABS: Glucose,Whole Blood 202 mg/dL (70-110)
[2023-12-10] MEDS: DILTIAZEM DRIP BOLUS FROM BAG 1 MG SOLN IV ONE (07:11)
[2023-12-10] MEDS: DILTIAZEM 125 MG in SODIUM CHLORIDE 0.9% 100 ML IV SCH (07:11)
[2023-12-10] MEDS: CISATRACURIUM 2 MG/ML 5 ML VIAL IV ONE (07:20)
[2023-12-10] MEDS: VANCOMYCIN TROUGH DUE 1 EACH MISC MISCELLANE ONE (07:58)
--- NOTE | 2023-12-10 08:12 | XR ---
EXAMINATION TYPE: XR chest 1V portable DATE OF EXAM: 12/10/2023 HISTORY: Status post bronchoscopy COMPARISON: 12/10/2023 TECHNIQUE: Single view of the chest is submitted. FINDINGS: Demonstrated are scattered senescent parenchymal change. Much improved aeration throughout the left lung with left suprahilar atelectasis and/or infiltrate. U nderlying mass is not excluded. Small right basilar effusion. Endotracheal tube, NG tube and right-sided central venous line as well as left-sided PICC line are un changed. The heart is stable. Hilar and mediastinal structures are within normal limits. Degenerative changes are seen of the dorsal spine. IMPRESSION: 1. Much improved aeration throughout the left lung with left suprahilar atelectasis and/or infiltrat e. Underlying mass is not excluded. Small right basilar effusion.
--- NOTE | 2023-12-10 08:27 | XR ---
EXAMINATION TYPE: XR chest 1V portable DATE OF EXAM: 12/10/2023 HISTORY: Shortness of breath. COMPARISON: 12/09/2023 TECHNIQUE: Single view of the chest is submitted. FINDINGS: Demonstrated are scattered senescent parenchymal change. Complete opacification left hemithorax. The right lung is clear. Indwelling tubes and catheters are u nchanged. The heart is stable. Hilar and mediastinal structures are within normal limits. Degenerative changes are seen of the dorsal spine. IMPRESSION: 1. Complete opacification left hemithorax. The right lung is clear. Indwelling tubes and catheters a re unchanged.
[2023-12-10 09:33] LABS: ABG Base Excess 3.9 mmol/L; ABG HCO3 29 mmol/L (21-25); ABG PCO2 48 mmHg (35-45); ABG PH 7.39 (7.35-7.45); ABG TCO2 30 mmol/L (19-24)
[2023-12-10 09:37] LABS: ABG Oxygen Saturation 87.6 % (94-97); ABG PO2 55 mmHg (83-108); Allen Test Performed? no
[2023-12-10] MEDS: POTASSIUM BICARBONATE/CIT AC 20 MEQ TABLET.EFF NG-TUBE SCH ×2 (09:58→13:27)
[2023-12-10 11:38] LABS: Glucose,Whole Blood 133 mg/dL (70-110)
--- NOTE | 2023-12-10 12:18 | P.PN ---
Subjective Progress Note Date: 12/10/23 Principal diagnosis: Abdominal sepsis, diverticulitis, gram-negative bacteremia This is a 74-year-old female patient who was brought into the intensive care unit after an extensive abdominal surgery. The patient underwent exploratory laparotomy and sigmoid colectomy and diverging colostomy. The patient was emergently taken to the operating room this afternoon as the patient was becoming hypotensive and she had developed persistent leukocytosis intermittent fevers consistent with sepsis and septic shock. The patient was also becoming hypotensive despite being resuscitated with IV fluids and the patient preoperatively received a total of 3 L of IV fluids. An emergent surgical exploration was indicated. 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 At this point in time, the patient is sedated and the patient is currently on propofol. She is intubated on mechanical ventilator and she is on assist- control mode at a rate of 12, tidal volume of 400, FiO2 of 100% and a PEEP of 5. Chest x-ray shows a right IJ triple-lumen catheter. ET tube is in good location. No airspace disease or consolidation. The blood gases showed a pH of 7.22 with a pCO2 of 51 and pO2 of 255. The patient is currently on no pressors and urine output is quite diminished in the order of 10 to 20 cc since arrival from the operating room. The patient is on IV cefepime and Flagyl. Received a total of 2 unit PRBC intraop 12/07/2023, I am seeing the patient for a follow-up in the intensive care unit. The patient is currently postop day #1. The patient remains intubated on the mechanical ventilator. This morning, the patient is on propofol which is running at 30 mcg/kg/min. She was resuscitated with IV fluids. She was maintained on normal saline at rate of 150 cc an hour and norepinephrine was also added overnight and currently norepinephrine is running at 0.07 mcg/kg/min. Her urine output is in the order of 10 to 20 cc an hour. Overall fluid balance over the past 24 hours has been +3.6 L. The patient remains on a combination of cefepime and Flagyl. The blood work from today shows a WBC count of 37.4, hemoglobin 10.7 and platelet count of 499. BUN is at 15 with a creatinine of 0.8. Sodium is at 143 from yesterday. Repeat electrolytes are still pending for now. Meanwhile, the patient remains intubated on mechanical ventilator. This morning, she is on assist-control mode at rate of 24, tidal volume of 400, FiO2 is at 55% with a PEEP of 5. The blood gas shows a pH of 7.38 with a pCO2 of 31 and pO2 of 119. Review of the chest x-ray from this morning shows adequate positioning of the orotracheal tube. This may need to be pushed in by 1 cm. The patient has a small atelectasis/left-sided pleural effusion. Otherwise, the right lung is essentially clear at this point in time. Antibiotic coverage includes a combination of cefepime and Flagyl. The patient will need Dilaudid for pain control. She is on heparin subcu for DVT prophy laxis. She is resting comfortably in bed. No other significant events overnight. Currently she is afebrile. The wound VAC is in place. Colostomy site is not fully functional at this point in time. Abdomen is soft. 12/08/2023, the patient remains intubated on mechanical ventilator and she is in the intensive care unit postop day #2. The patient remains on a mechanical ventilator. She is currently on assist-control mode with rate of 24, tidal volume of 400, FiO2 of 50% with a PEEP of 5. The blood gases from this morning showed a pH of 7.28 with a pCO2 of 32 and pO2 of 105. The chest x-ray was reviewed and shows evidence of left basilar effusion/atelectasis. Orotracheal tube is in good location. The patient is triple-lumen catheter in her right IJ. Unfortunately, at around 3 AM this morning, the patient went into A-fib RVR and the patient became profoundly hypotensive. The patient progressively required higher dose of norepinephrine and currently norepinephrine is running at 0.2 mcg/kg/min and her mean arterial pressure is around 64. At the same time, the patient received treatment for her new onset atrial fibrillation. She was given an amiodarone bolus and currently she is on amiodarone at 0.5 mg/min. Based on her underlying hypotension. The patient was thought to hemodynamically unstable with A-fib RVR. The patient received cardioversion on 3 separate occasions using 120 J, 150 J and 200 J. Those attempts failed and the patient remained in atrial fibrillation. Her current heart rate is running at around 150 beats a minute, irregular. Urine output has dropped and the patient is producing only 10 cc an hour. At the same time, the patient's white cell count is up to 33.3 with a hemoglobin 12.1 and platelet count of 412. NG tube is in place. Output is minimal. Abdomen remains soft. The wound VAC is still in place. There is some liquidy stool material in the colostomy bag. No abdominal distention. The patient has been developing progressive edema and upper extremities in the left lower extremity. 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 Rest of the electrolytes show a sodium level of 143, serum bicarb is down to 12, anion gap is at 6, BUN is at 17 with a creatinine of 0.8. Magnesium level is at 1.9 with a calcium level of 7.9. The patient remains on IV cefepime and Flagyl. Urine culture from 12/04/2023 was positive for Klebsiella pneumoniae. She is currently afebrile. Propofol is running at 35 mcg/kg/min. The patient has been adequately sedated for now. Patient was reevaluated today on 12/09/2023, remains intubated and mechanically ventilated. On assist-control rate of 24 tidal volume 400 FiO2 50% and PEEP of 5. ABG showed a pO2 of 128 pCO2 35 pH 7.39. His FiO2 was cut down to 40% instead of 50%. Patient remained on multiple drips including norepinephrine, 0.04 mcg/kg/min, propofol at 35 mcg/kg/min, vasopressin at 0.03 units/min, D5W with 3 A of bicarb running at 150 cc/h. Patient is receiving vancomycin and Merrem. Patient has a left IJ triple-lumen catheter and left radial arterial line. Urine is positive Klebsiella, blood cultures were noted to be also positive for gram-negative bacilli. Most likely Klebsiella. Patient is on Merrem and she is on vancomycin patient is now postoperative day #3. Patient received 2 units of packed RBCs, since admission, hemoglobin now is 9.8, hemoglobin went as low as 7.4 on 12/04 labs today showed PTT of 57.4, basic metabolic profile is normal except for low potassium of 3.0 bicarb is 16, renal profile is normal WBC count is 28.5 hemoglobin is 9.8 urine cultures are positive for Klebsiella pneumoniae. Nutrition hicks the patient is receiving vit al HP 10 cc/h. Patient remains in atrial fibrillation, rate seems to be reasonably controlled Patient was reevaluated today on 12/10/2023, remains in the ICU, intubated and mechanically ventilated. Earlier this morning I was made aware of the patient's chest x-ray showing complete collapse of the left lung, and tracheal deviation to the ipsilateral side. This was clearly consistent with mucous plugging involving the left mainstem bronchus. Hence the patient underwent bronchoscopy, suctioning of the mucous plugs, and bronchoalveolar lavage of the left upper lobe lingula and left lower lobe. Please refer to the full operative report regarding this procedure. Patient remains intubated, mechanically ventilated, she is on assist-control rate of 24 tidal volume 400 FiO2 is now 50% PEEP of 10 and I cut it down to 8. Patient remains on multiple drips including norepinephrine at 0.06 mcg/kg/min vasopressin at 0.04 units/h, bicarb drip which I have discontinued today, Cardizem drip at 5 mg/h. Patient is also on heparin drip, propofol at 15 mcg/kg/min. Antibiotics hicks remains on Merrem for Klebsiella infection involving urine and blood. Chest x-ray as noted above, patient had complete opacification of the left lung, however after bronchoscopy and BAL significant improvement was noted and aeration of left lung significantly improved. ABG this morning on 40% showed a pO2 of 55 pCO2 48 and pH of 7.39 BBC count is 19.7, improving hemoglobin is 9.1. Platelets 253. ASIC metabolic profile is normal and renal profile is normal Objective - Vital Signs Vital signs: Vital Signs Temp 97.7 F 12/10/23 08:00 Pulse 156 H 12/10/23 11:00 Resp 24 12/10/23 11:00 BP 124/96 12/10/23 11:00 Pulse Ox 91 L 12/10/23 11:00 FiO2 50 12/10/23 10:29 Intake & Output 12/09/23 12/10/23 12/10/23 18:59 06:59 18:59 Intake Total 3027.587 3436.272 1458.102 Output Total 680 755 195 Balance 2347.587 2681.272 1263.102 Weight 101.4 kg 104.9 kg Intake: IV 2350 2700 1102 0.9 40 Albumin Human 25% 50 ml 100 In Empty Bag 1 bag @ 50 mls/hr IVPB Q1H [facility] Rx#: [id number] Calcium Gluconate in NaCl 100 1 gm In Saline 1 100ml. bag @ 100 mls/hr IVPB ONCE ONE Rx#:[id number] Dextrose 5% in Water 1, 1350 1800 450 000 ml @ 150 mls/hr IV . Q7H40M [facility] with Sodium Bicarb (1 Meq/ml) 150 ml Rx#:[id number] Magnesium Sulfate-D5w Pmx 100 1 gm In Dextrose/Water 1 100ml.bag @ 100 mls/hr IVPB ONCE ONE Rx#: [id number] Meropenem 1 gm In Sodium 200 100 100 Chloride 0.9% 100 ml @ 33 .3 mls/hr IVPB Q8HR [facility] Rx#:[id number] Potassium Chloride 20 meq 200 In Water For Injection 1 100ml.bag @ 50 mls/hr IVPB Q2H [facility] Rx#: [id number] Potassium Chloride 20 meq 100 In Water For Injection 1 100ml.bag @ 50 mls/hr IVPB Q2H [facility] Rx#: [id number] Vancomycin 1,500 mg In 500 500 500 Sodium Chloride 0.9% 500 ml 500 ml @ 167 mls/hr IVPB Q12HR [facility] Rx#: [id number] pressure bag 12 Intake, IV Titration 237.587 262.272 198.102 Amount Diltiazem 125 mg In 22.5 Sodium Chloride 0.9% 100 ml @ 5 MG/HR 5 mls/hr IV .Q24H [facility] Rx#:[id number] Heparin Sod,Pork in 0.45% 114.739 NaCl 25,000 unit In 0.45 % NaCl 1 250ml.bag @ 10. 661 UNITS/KG/HR 10 mls/hr IV .Q24H [facility] Rx#: [id number] Norepinephrine 8 mg In 99.553 52.635 50.549 Sodium Chloride 0.9% 250 ml @ 0.03 MCG/KG/MIN 5. 445 mls/hr IV .Q24H [facility] Rx#:[id number] Vasopressin 20 unit In 51 43.095 48.144 Sodium Chloride 0.9% 50 ml @ 0.03 UNITS/MIN 4.59 mls/hr IV .Q11H7M [facility] Rx# :[id number] propofoL 1,000 mg In 87.034 51.803 76.909 Empty Bag 1 bag @ 15 MCG/ KG/MIN 7.348 mls/hr IV . [id number] [facility] Rx#:[id number] Tube Feeding 180 384 128 Other 260 90 30 Output: Drainage 150 150 Abdomen 150 150 Urine 380 605 195 Stool 150 Other: Voiding Method Indwelling Catheter Indwelling Catheter ABP, PAP, CO, CI - Last Documented Arterial Blood Pressure 106/51 - Exam General: Reveals 71-year-old female intubated mechanically ventilated sedated Skin: No rashes. Eye: Pupils are equal, round and reactive to light, extra-ocular movements are intact; there is normal conjunctiva bilaterally. Ears, nose, mouth and throat: There are moist mucous membranes and no oral lesions. Neck: The neck is supple, there is no tenderness or JVD. Cardiovascular: There is a regular rate and rhythm. No murmur, rub or gallop is appreciated. Respiratory: Diminished breath sounds on the left side, right side is clear. Gastrointestinal: Bowel sounds are hypoactive/absent. There is a mid abdominal wound and the surgical scar is clean and the wound VAC has been applied. No direct tenderness. No rebound tenderness. Musculoskeletal: Right above-knee amputation is noted otherwise unremarkable. Neurological: Could not assess, patient is sedated. Psychiatric: Not assessed - Labs CBC & Chem 7: 12/10/23 03:54 12/10/23 11:45 Labs: Abnormal Lab Results - Last 24 Hours (Table) 12/09/23 12/09/23 12/10/23 Range/Units 15:10 18:08 00:20 WBC (3.8-10.6) k/uL RBC (3.80-5.40) m/uL Hgb (11.4-16.0) gm/dL Hct (34.0-46.0) % RDW (11.5-15.5) % Neutrophils # (1.3-7.7) k/uL APTT (22.0-30.0) sec ABG pCO2 (35-45) mmHg ABG pO2 (83-108) mmHg ABG HCO3 (21-25) mmol/L ABG Total CO2 (19-24) mmol/L ABG O2 Saturation (94-97) % Potassium (3.5-5.1) mmol/L Chloride 115 H (98-107) mmol/L Carbon Dioxide 20 L (22-30) mmol/L Glucose 114 H (74-99) mg/dL POC Glucose (mg/dL) 145 H 175 H (70-110) mg/dL Calcium 6.8 L (8.4-10.2) mg/dL 12/10/23 12/10/23 12/10/23 Range/Units 03:54 03:54 03:54 WBC 19.7 H (3.8-10.6) k/uL RBC 3.49 L (3.80-5.40) m/uL Hgb 9.1 L (11.4-16.0) gm/dL Hct 28.1 L (34.0-46.0) % RDW 21.3 H (11.5-15.5) % Neutrophils # 17.1 H (1.3-7.7) k/uL APTT 55.7 H (22.0-30.0) sec ABG pCO2 (35-45) mmHg ABG pO2 (83-108) mmHg ABG HCO3 (21-25) mmol/L ABG Total CO2 (19-24) mmol/L ABG O2 Saturation (94-97) % Potassium 2.8 L (3.5-5.1) mmol/L Chloride 112 H (98-107) mmol/L Carbon Dioxide (22-30) mmol/L Glucose 144 H (74-99) mg/dL POC Glucose (mg/dL) (70-110) mg/dL Calcium 6.4 L* (8.4-10.2) mg/dL 12/10/23 12/10/23 12/10/23 Range/Units 06:42 09:31 11:36 WBC (3.8-10.6) k/uL RBC (3.80-5.40) m/uL Hgb (11.4-16.0) gm/dL Hct (34.0-46.0) % RDW (11.5-15.5) % Neutrophils # (1.3-7.7) k/uL APTT (22.0-30.0) sec ABG pCO2 48 H (35-45) mmHg ABG pO2 55 L* (83-108) mmHg ABG HCO3 29 H (21-25) mmol/L ABG Total CO2 30 H (19-24) mmol/L ABG O2 Saturation 87.6 L (94-97) % Potassium (3.5-5.1) mmol/L Chloride (98-107) mmol/L Carbon Dioxide (22-30) mmol/L Glucose (74-99) mg/dL POC Glucose (mg/dL) 202 H 133 H (70-110) mg/dL Calcium (8.4-10.2) mg/dL Microbiology - Last 24 Hours (Table) 12/09/23 16:45 Gram Stain - Preliminary Aspirate 12/04/23 15:45 Blood Culture - Final Blood 12/08/23 08:46 Blood Culture - Preliminary Blood 12/04/23 16:00 Blood Culture Gram Stain - Final Blood Blood Culture - Preliminary 12/07/23 11:32 Gram Stain - Preliminary Sputum Sputum Culture - Preliminary Romelia albicans Assessment and Plan Assessment: Impression: Status post exploratory laparotomy colectomy and diverting colostomy and debridement of cutaneous fistula postoperative day 4 Abdominal sepsis and septic shock New onset atrial fibrillation with RVR Gram-negative bacteremia Klebsiella pneumonia urinary tract infection Leukocytosis secondary to above, improving. Acute hypoxic and hypercapnic respiratory failure secondary to above Left basilar atelectasis and effusion None anion gap metabolic acidosis, resolved, bicarb drip was discontinued today History of previous right above-knee amputation Left buttocks unstageable pressure ulcer Hydropic gallbladder with multiple gallstones Adrenal nodules Left lung collapse secondary to mucous plugging, status post bronchoscopy mucous plug suctioning and lavage of left lung, done 12/10/2023 Recommendation: Continue ventilatory support, decrease PEEP to 8 continue FiO2 at 50% Continue hemodynamic support, patient is requiring norepinephrine and vasopressin hopefully taper down and discontinue norepinephrine if possible today. Continue antibiotics as per infectious disease on the case. Patient is now on Merrem, vancomycin was discontinued Continue nutritional support Continue bicarb drip. Continue GI and DVT prophylaxis continue amiodarone and heparin for atrial fibrillation Daily assessment of weaning and sedation interruption including today with as sessment of mental status Patient does not seem to be ready for weaning considering all the medical issues and the relative hemodynamic instability requiring pressors Patient remains critically ill. Critical care time is over 30 minutes Time with Patient: Greater than 30
--- NOTE | 2023-12-10 12:26 | P.PN ---
Subjective Progress Note Date: 12/09/23 Principal diagnosis: Reason for follow-up is complicated diverticulitis with colocutaneous fistula Patient is a 73-year-old female who was brought into the ER at [facility] for the patient complaining of generalized weakness patient noticed to have sacral pressure ulcer and also complicate diverticulitis with a fistula to the left lower abdominal wall.Patient was taken to the OR on 12/06/2023 and this patient was status post exploratory laparotomy with sigmoid colectomy takedown of the colocutaneous fistula left inguinal hernia repair and peritoneal lavage. On today's visit that is 12/09/2023, Patient is afebrile patient is on the vent with FiO2 of 40% no significant purulent secretions through the ET or any other changes reported by the nursing staff the patient remains to be pressor dependent. Patient white count is 28.5 less than yesterday of 33.7, creatinine is 0.60 Objective - Vital Signs Vital signs: Vital Signs Temp 96.3 F L 12/09/23 08:00 Pulse 79 12/09/23 11:00 Resp 25 H 12/09/23 11:00 BP 105/54 12/09/23 11:00 Pulse Ox 92 L 12/09/23 11:00 FiO2 40 12/09/23 11:09 Intake & Output 12/08/23 12/09/23 12/09/23 18:59 06:59 18:59 Intake Total 5368.717 3582.719 1351.011 Output Total 757 396 210 Balance 4611.717 3186.719 1141.011 Weight 101.4 kg Intake: IV 4800.9 2700 1150 Albumin Human 25% 50 ml 100 50 In Empty Bag 1 bag @ 50 mls/hr IVPB Q1H [facility] Rx#: [id number] Dextrose 5% in Water 1, 1650 1800 300 000 ml @ 150 mls/hr IV . Q7H40M [facility] with Sodium Bicarb (1 Meq/ml) 150 ml Rx#:[id number] Magnesium Sulfate-D5w Pmx 100 100 1 gm In Dextrose/Water 1 100ml.bag @ 100 mls/hr IVPB ONCE [facility] Rx#: [id number] Meropenem 1 gm In Sodium 199.9 99 100 Chloride 0.9% 100 ml @ 33 .3 mls/hr IVPB Q8HR [facility] Rx#:[id number] Potassium Chloride 20 meq 200 100 200 In Water For Injection 1 100ml.bag @ 50 mls/hr IVPB Q2H [facility] Rx#: [id number] Sodium Chloride 0.9% 1, 150 000 ml @ 150 mls/hr IV . Q6H40M [facility] Rx#:[id number] Sodium Chloride 0.9% 1, 1000 000 ml @ 999 mls/hr IV . Q1H1M [facility] Rx#:[id number] Sodium Chloride 0.9% 1, 1000 000 ml @ 999 mls/hr IV . Q1H1M [facility] Rx#:[id number] Vancomycin 1,500 mg In 501 501 500 Sodium Chloride 0.9% 500 ml 500 ml @ 167 mls/hr IVPB Q12HR [facility] Rx#: [id number] Intake, IV Titration 507.817 672.719 71.011 Amount Amiodarone 450 mg In 304.729 Dextrose 5% in Water 250 ml @ 0.5 MG/MIN 16.667 mls/hr IV .Q15H [facility] Rx#: [id number] Heparin Sod,Pork in 0.45% 70.5 46.228 NaCl 25,000 unit In 0.45 % NaCl 1 250ml.bag @ 10. 661 UNITS/KG/HR 10 mls/hr IV .Q24H [facility] Rx#: [id number] Norepinephrine 8 mg In 233.835 74.744 28.677 Sodium Chloride 0.9% 250 ml @ 0.03 MCG/KG/MIN 5. 445 mls/hr IV .Q24H [facility] Rx#:[id number] Vasopressin 20 unit In 43.452 51 Sodium Chloride 0.9% 50 ml @ 0.03 UNITS/MIN 4.59 mls/hr IV .Q11H7M [facility] Rx# :[id number] propofoL 1,000 mg In 160.030 196.018 42.334 Empty Bag 1 bag @ 15 MCG/ KG/MIN 7.348 mls/hr IV . Q58L16U [facility] Rx#:[id number] Tube Feeding 30 120 40 Other 30 90 90 Output: Gastric Drainage 150 Drainage 20 100 Abdomen 20 100 Urine 587 396 110 Other: Voiding Method Indwelling Catheter Indwelling Catheter Indwelling Catheter ABP, PAP, CO, CI - Last Documented Arterial Blood Pressure 135/55 - Exam GENERAL DESCRIPTION: An elderly female intubated on the vent RESPIRATORY SYSTEM: Unlabored breathing , decreased breath sounds at bases HEART: S1 S2 regular rate and rhythm , ABDOMEN: Soft , no tenderness EXTREMITIES: No edema feet - Labs CBC & Chem 7: 12/10/23 03:54 12/10/23 11:45 Labs: Abnormal Lab Results - Last 24 Hours (Table) 12/04/23 12/08/23 12/08/23 Range/Units 18:28 11:57 15:39 WBC (3.8-10.6) k/uL RBC (3.80-5.40) m/uL Hgb (11.4-16.0) gm/dL Hct (34.0-46.0) % RDW (11.5-15.5) % Neutrophils # (1.3-7.7) k/uL PT 14.1 H (10.0-12.5) sec INR 1.4 H (<1.2) APTT 42.9 H (22.0-30.0) sec ABG pO2 (83-108) mmHg ABG O2 Saturation (94-97) % Potassium (3.5-5.1) mmol/L Chloride (98-107) mmol/L Carbon Dioxide (22-30) mmol/L Glucose (74-99) mg/dL POC Glucose (mg/dL) 201 H (70-110) mg/dL Calcium (8.4-10.2) mg/dL Delta Bilirubin (0.0-0.2) mg/dL Alkaline Phosphatase (38-126) U/L Total Protein (6.3-8.2) g/dL Albumin (3.5-5.0) g/dL Crossmatch See Detail 12/08/23 12/08/23 12/08/23 Range/Units 17:40 17:40 21:23 WBC (3.8-10.6) k/uL RBC (3.80-5.40) m/uL Hgb (11.4-16.0) gm/dL Hct (34.0-46.0) % RDW (11.5-15.5) % Neutrophils # (1.3-7.7) k/uL PT (10.0-12.5) sec INR (<1.2) APTT >200.0 H* (22.0-30.0) sec ABG pO2 (83-108) mmHg ABG O2 Saturation (94-97) % Potassium 3.4 L (3.5-5.1) mmol/L Chloride 122 H (98-107) mmol/L Carbon Dioxide 15 L (22-30) mmol/L Glucose 211 H (74-99) mg/dL POC Glucose (mg/dL) 244 H (70-110) mg/dL Calcium 6.6 L (8.4-10.2) mg/dL Delta Bilirubin (0.0-0.2) mg/dL Alkaline Phosphatase 134 H (38-126) U/L Total Protein 3.4 L (6.3-8.2) g/dL Albumin 1.2 L (3.5-5.0) g/dL Crossmatch 12/09/23 12/09/23 12/09/23 Range/Units 02:30 02:30 02:30 WBC 28.5 H (3.8-10.6) k/uL RBC 3.74 L (3.80-5.40) m/uL Hgb 9.8 L D (11.4-16.0) gm/dL Hct 31.1 L (34.0-46.0) % RDW 21.3 H (11.5-15.5) % Neutrophils # 25.3 H (1.3-7.7) k/uL PT 14.7 H (10.0-12.5) sec INR 1.4 H (<1.2) APTT 85.0 H (22.0-30.0) sec ABG pO2 (83-108) mmHg ABG O2 Saturation (94-97) % Potassium 3.0 L (3.5-5.1) mmol/L Chloride 117 H (98-107) mmol/L Carbon Dioxide 16 L (22-30) mmol/L Glucose 183 H (74-99) mg/dL POC Glucose (mg/dL) (70-110) mg/dL Calcium 6.6 L (8.4-10.2) mg/dL Delta Bilirubin (0.0-0.2) mg/dL Alkaline Phosphatase (38-126) U/L Total Protein (6.3-8.2) g/dL Albumin (3.5-5.0) g/dL Crossmatch 12/09/23 12/09/23 12/09/23 Range/Units 02:30 03:48 05:40 WBC (3.8-10.6) k/uL RBC (3.80-5.40) m/uL Hgb (11.4-16.0) gm/dL Hct (34.0-46.0) % RDW (11.5-15.5) % Neutrophils # (1.3-7.7) k/uL PT (10.0-12.5) sec INR (<1.2) APTT (22.0-30.0) sec ABG pO2 128 H (83-108) mmHg ABG O2 Saturation 98.0 H (94-97) % Potassium (3.5-5.1) mmol/L Chloride (98-107) mmol/L Carbon Dioxide (22-30) mmol/L Glucose (74-99) mg/dL POC Glucose (mg/dL) 205 H (70-110) mg/dL Calcium (8.4-10.2) mg/dL Delta Bilirubin 0.4 H (0.0-0.2) mg/dL Alkaline Phosphatase (38-126) U/L Total Protein 3.6 L (6.3-8.2) g/dL Albumin 1.5 L (3.5-5.0) g/dL Crossmatch 12/09/23 12/09/23 12/09/23 Range/Units 06:05 10:00 11:38 WBC (3.8-10.6) k/uL RBC (3.80-5.40) m/uL Hgb (11.4-16.0) gm/dL Hct (34.0-46.0) % RDW (11.5-15.5) % Neutrophils # (1.3-7.7) k/uL PT (10.0-12.5) sec INR (<1.2) APTT 57.4 H (22.0-30.0) sec ABG pO2 (83-108) mmHg ABG O2 Saturation (94-97) % Potassium (3.5-5.1) mmol/L Chloride (98-107) mmol/L Carbon Dioxide (22-30) mmol/L Glucose (74-99) mg/dL POC Glucose (mg/dL) 163 H 209 H (70-110) mg/dL Calcium (8.4-10.2) mg/dL Delta Bilirubin (0.0-0.2) mg/dL Alkaline Phosphatase (38-126) U/L Total Protein (6.3-8.2) g/dL Albumin (3.5-5.0) g/dL Crossmatch Microbiology - Last 24 Hours (Table) 12/07/23 11:32 Gram Stain - Preliminary Sputum 12/04/23 23:44 Urine Culture - Final Urine,Catheterized Klebsiella pneumoniae Assessment and Plan (1) Diverticulitis of intestine, part unspecified, without perforation or abscess without bleeding Current Visit: Yes Status: Acute Code(s): K57.92 - DVTRCLI OF INTEST, PART UNSP, W/O PERF OR ABSCESS W/O BLEED SNOMED Code(s): 831984757 (2) Leukocytosis Current Visit: Yes Status: Acute Code(s): D72.829 - ELEVATED WHITE BLOOD CELL COUNT, UNSPECIFIED SNOMED Code(s): 590042283 (3) Sepsis Current Visit: Yes Status: Acute Code(s): A41.9 - SEPSIS, UNSPECIFIED ORGANISM SNOMED Code(s): 43046772 (4) Gram-negative bacteremia Current Visit: Yes Status: Acute Code(s): R78.81 - BACTEREMIA SNOMED Code(s): 679782031977 Plan: 1patient with complicated diverticulitis with evidence of fistulous communication to the skin left lower quadrant area and concern for possible extension to the bladder, will need to cover for the polymicrobial jessie associated with such condition including enteric gram-negative both aerobes and anaerobes 2-patient also have a pressure ulcer but no significant surrounding cellulitis, wound care has been consulted continue local wound care per them 3gram-negative 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 with ID sensitivities pending 3-patient is status post extensive surgery including 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 5patient to continue with meropenem, vancomycin while waiting for the culture to finalize and monitor clinical course closely Dictation was produced using [employer] dictation software. please excuse any grammatical, word or spelling errors. Time with Patient: Less than 30
--- NOTE | 2023-12-10 12:27 | P.PN ---
Subjective Progress Note Date: 12/10/23 Principal diagnosis: Reason for follow-up is complicated diverticulitis with colocutaneous fistula Patient is a 73-year-old female who was brought into the ER at [facility] for the patient complaining of generalized weakness patient noticed to have sacral pressure ulcer and also complicate diverticulitis with a fistula to the left lower abdominal wall.Patient was taken to the OR on 12/06/2023 and this patient was status post exploratory laparotomy with sigmoid colectomy takedown of the colocutaneous fistula left inguinal hernia repair and peritoneal lavage. On today's visit that is 12/10/2023,the patient did have a low-grade fever 100.3 at midnight patient is afebrile since then patient remains to be intubated on the vent did have bronchoscopy this morning with lavage patient requiring less pressor support with the nursing staff also reported foul-smelling sacral pressure ulcer patient is currently on the vent FiO2 at 50%. Her patient white count is down to 19.7 and creatinine is stable at 0.56, final on the blood culture still pending repeat blood culture so far pending Objective - Vital Signs Vital signs: Vital Signs Temp 97.7 F 12/10/23 08:00 Pulse 156 H 12/10/23 11:00 Resp 24 12/10/23 11:00 BP 124/96 12/10/23 11:00 Pulse Ox 91 L 12/10/23 11:00 FiO2 50 12/10/23 10:29 Intake & Output 12/09/23 12/10/23 12/10/23 18:59 06:59 18:59 Intake Total 3027.587 3436.272 1458.102 Output Total 680 755 195 Balance 2347.587 2681.272 1263.102 Weight 101.4 kg 104.9 kg Intake: IV 2350 2700 1102 0.9 40 Albumin Human 25% 50 ml 100 In Empty Bag 1 bag @ 50 mls/hr IVPB Q1H [facility] Rx#: [id number] Calcium Gluconate in NaCl 100 1 gm In Saline 1 100ml. bag @ 100 mls/hr IVPB ONCE [facility] Rx#:[id number] Dextrose 5% in Water 1, 1350 1800 450 000 ml @ 150 mls/hr IV . Q7H40M [facility] with Sodium Bicarb (1 Meq/ml) 150 ml Rx#:[id number] Magnesium Sulfate-D5w Pmx 100 1 gm In Dextrose/Water 1 100ml.bag @ 100 mls/hr IVPB ONCE [facility] Rx#: [id number] Meropenem 1 gm In Sodium 200 100 100 Chloride 0.9% 100 ml @ 33 .3 mls/hr IVPB Q8HR [facility] Rx#:[id number] Potassium Chloride 20 meq 200 In Water For Injection 1 100ml.bag @ 50 mls/hr IVPB Q2H [facility] Rx#: [id number] Potassium Chloride 20 meq 100 In Water For Injection 1 100ml.bag @ 50 mls/hr IVPB Q2H [facility] Rx#: [id number] Vancomycin 1,500 mg In 500 500 500 Sodium Chloride 0.9% 500 ml 500 ml @ 167 mls/hr IVPB Q12HR [facility] Rx#: [id number] pressure bag 12 Intake, IV Titration 237.587 262.272 198.102 Amount Diltiazem 125 mg In 22.5 Sodium Chloride 0.9% 100 ml @ 5 MG/HR 5 mls/hr IV .Q24H [facility] Rx#:[id number] Heparin Sod,Pork in 0.45% 114.739 NaCl 25,000 unit In 0.45 % NaCl 1 250ml.bag @ 10. 661 UNITS/KG/HR 10 mls/hr IV .Q24H [facility] Rx#: [id number] Norepinephrine 8 mg In 99.553 52.635 50.549 Sodium Chloride 0.9% 250 ml @ 0.03 MCG/KG/MIN 5. 445 mls/hr IV .Q24H [facility] Rx#:[id number] Vasopressin 20 unit In 51 43.095 48.144 Sodium Chloride 0.9% 50 ml @ 0.03 UNITS/MIN 4.59 mls/hr IV .Q11H7M [facility] Rx# :[id number] propofoL 1,000 mg In 87.034 51.803 76.909 Empty Bag 1 bag @ 15 MCG/ KG/MIN 7.348 mls/hr IV . [id number] [facility] Rx#:[id number] Tube Feeding 180 384 128 Other 260 90 30 Output: Drainage 150 150 Abdomen 150 150 Urine 380 605 195 Stool 150 Other: Voiding Method Indwelling Catheter Indwelling Catheter ABP, PAP, CO, CI - Last Documented Arterial Blood Pressure 106/51 - Exam GENERAL DESCRIPTION: An elderly female intubated on the vent RESPIRATORY SYSTEM: Unlabored breathing , decreased breath sounds at bases HEART: S1 S2 regular rate and rhythm , ABDOMEN: Soft , no tenderness EXTREMITIES: No edema feet - Labs CBC & Chem 7: 12/10/23 03:54 12/10/23 11:45 Labs: Abnormal Lab Results - Last 24 Hours (Table) 12/09/23 12/09/23 12/10/23 Range/Units 15:10 18:08 00:20 WBC (3.8-10.6) k/uL RBC (3.80-5.40) m/uL Hgb (11.4-16.0) gm/dL Hct (34.0-46.0) % RDW (11.5-15.5) % Neutrophils # (1.3-7.7) k/uL APTT (22.0-30.0) sec ABG pCO2 (35-45) mmHg ABG pO2 (83-108) mmHg ABG HCO3 (21-25) mmol/L ABG Total CO2 (19-24) mmol/L ABG O2 Saturation (94-97) % Potassium (3.5-5.1) mmol/L Chloride 115 H (98-107) mmol/L Carbon Dioxide 20 L (22-30) mmol/L Glucose 114 H (74-99) mg/dL POC Glucose (mg/dL) 145 H 175 H (70-110) mg/dL Calcium 6.8 L (8.4-10.2) mg/dL 12/10/23 12/10/23 12/10/23 Range/Units 03:54 03:54 03:54 WBC 19.7 H (3.8-10.6) k/uL RBC 3.49 L (3.80-5.40) m/uL Hgb 9.1 L (11.4-16.0) gm/dL Hct 28.1 L (34.0-46.0) % RDW 21.3 H (11.5-15.5) % Neutrophils # 17.1 H (1.3-7.7) k/uL APTT 55.7 H (22.0-30.0) sec ABG pCO2 (35-45) mmHg ABG pO2 (83-108) mmHg ABG HCO3 (21-25) mmol/L ABG Total CO2 (19-24) mmol/L ABG O2 Saturation (94-97) % Potassium 2.8 L (3.5-5.1) mmol/L Chloride 112 H (98-107) mmol/L Carbon Dioxide (22-30) mmol/L Glucose 144 H (74-99) mg/dL POC Glucose (mg/dL) (70-110) mg/dL Calcium 6.4 L* (8.4-10.2) mg/dL 12/10/23 12/10/23 12/10/23 Range/Units 06:42 09:31 11:36 WBC (3.8-10.6) k/uL RBC (3.80-5.40) m/uL Hgb (11.4-16.0) gm/dL Hct (34.0-46.0) % RDW (11.5-15.5) % Neutrophils # (1.3-7.7) k/uL APTT (22.0-30.0) sec ABG pCO2 48 H (35-45) mmHg ABG pO2 55 L* (83-108) mmHg ABG HCO3 29 H (21-25) mmol/L ABG Total CO2 30 H (19-24) mmol/L ABG O2 Saturation 87.6 L (94-97) % Potassium (3.5-5.1) mmol/L Chloride (98-107) mmol/L Carbon Dioxide (22-30) mmol/L Glucose (74-99) mg/dL POC Glucose (mg/dL) 202 H 133 H (70-110) mg/dL Calcium (8.4-10.2) mg/dL Microbiology - Last 24 Hours (Table) 12/09/23 16:45 Gram Stain - Preliminary Aspirate 12/04/23 15:45 Blood Culture - Final Blood 12/08/23 08:46 Blood Culture - Preliminary Blood 12/04/23 16:00 Blood Culture Gram Stain - Final Blood Blood Culture - Preliminary 12/07/23 11:32 Gram Stain - Preliminary Sputum Sputum Culture - Preliminary Romelia albicans Assessment and Plan (1) Diverticulitis of intestine, part unspecified, without perforation or abs cess without bleeding Current Visit: Yes Status: Acute Code(s): K57.92 - DVTRCLI OF INTEST, PART UNSP, W/O PERF OR ABSCESS W/O BLEED SNOMED Code(s): 428271769 (2) Leukocytosis Current Visit: Yes Status: Acute Code(s): D72.829 - ELEVATED WHITE BLOOD CELL COUNT, UNSPECIFIED SNOMED Code(s): 256266427 (3) Sepsis Current Visit: Yes Status: Acute Code(s): A41.9 - SEPSIS, UNSPECIFIED ORGANISM SNOMED Code(s): 21645158 (4) Gram-negative bacteremia Current Visit: Yes Status: Acute Code(s): R78.81 - BACTEREMIA SNOMED Code(s): 927853957425 Plan: 1patient with complicated diverticulitis with evidence of fistulous communication to the skin left lower quadrant area and concern for possible extension to the bladder, will need to cover for the polymicrobial jessie associated with such condition including enteric gram-negative both aerobes and anaerobes 2-patient also have a pressure ulcer but no significant surrounding cellulitis, wound care has been consulted continue local wound care per them 3gram-negative 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 with ID sensitivities pending 3-patient is status post extensive surgery including 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 5patient sputum culture grew Romelia patient is status post bronchoscopy with culture this morning results will be followed for now continue with the meropenem and vancomycin adjust antibiotic further on the basis of BAL culture Dictation was produced using [email or web address] dictation software. please excuse any grammatical, word or spelling errors. Time with Patient: Less than 30
--- NOTE | 2023-12-10 12:38 | OP ---
OPERATIVE REPORT DATE OF SERVICE : PROCEDURES PERFORMED: Emergent bronchoscopy and bronchoalveolar lavage, suctioning of mucus plugs from left mainstem bronchus and left lower lobe as well as left upper lobe and lingula. PREOPERATIVE DIAGNOSIS: Left lung collapse with indication of mucus plugging involving the left mainstem bronchus. POSTOPERATIVE DIAGNOSIS: Left lung collapse with indication of mucus plugging involving the left mainstem bronchus. ANESTHESIA USED: The patient was already on mechanical ventilation, and she received. She was on the propofol drip, received 10 mg of Nimbex just prior to the procedure. DESCRIPTION OF PROCEDURE: The patient was placed in a supine position, an adapter was applied to the endotracheal tube and connected to mechanical ventilation. FiO2 was placed at 100% during the bronchoscopy procedure. In the meantime, we monitored her O2 saturation continuously, blood pressure was continuously monitored via arterial line, and pulse oximetry was continuously monitored. The bronchoscope was placed through the adapter down to the distal end of the endotracheal tube. As we reached the distal end of the endotracheal tube, I could visualize mucous plugs in the left mainstem bronchus. Bronchoalveolar lavage was done and suctioning of mucus plugs from the left mainstem bronchus was done. Also lavage of the left upper lobe lingula and left lower lobe until all cleared from mucus plugging. Then we moved to the right side, examination of the right side showed no evidence of any significant secretions, hence did not require any BAL or suctioning of secretions. The procedure was well tolerated, fluid was sent for different diagnostic studies. Chest x-ray postoperatively showed significant improvement in aeration of the left lung. MMODL / IJN: [id number] /
--- NOTE | 2023-12-10 13:02 | P.PN ---
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 Patient remains in the ICU intubated and on mechanical ventilation. Patient remains on Levophed and vasopressin. She had A-fib with RVR currently on Cardizem and amiodarone. She had bronchoscopy this morning. She is on tube feeds for nutrition support. She did have a low-grade temp of 100.3 last night. WBC is down from 28-19 hemoglobin 9.1 potassium 2.8 and being replaced. PHYSICAL EXAM: VITAL SIGNS: Reviewed GENERAL: no acute distress. HEENT: No sclera icterus. Extraocular movements grossly intact. Moist buccal mucosa. Head is atraumatic, normocephalic. Hears conversational speech. No nasal drainage. NECK: Supple without lymphadenopathy. CHEST: Non-labored respirations and equal bilateral excursions. CARDIOVASCULAR: Palpable 2+ radial pulses. ABDOMEN: Soft. Nondistended. Prevana wound vac intact and to wall suction. S hola beefy red. Stool in ostomy bag MUSCULOSKELETAL: No clubbing or cyanosis. NEUROLOGIC: No focal or lateralizing signs. Cranial nerves II through XII grossly intact. PSYCH: Intubated SKIN: Well perfused. Good skin turgor. ASSESSMENT: 1. 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 Sensorineural hearing loss, moderate to extreme 3. No previous medical care 4. Severe iron deficiency anemia 5. Generalized malnutrition 6. Oliguric 7. Atrial fibrillation with rapid ventricular response PLAN: -Continue ICU management -Vent management per critical care service -Continue tube feeds through NG tube -Continue Prevana wound VAC system to high wall suction -Continue pain management -Continue antibiotics Physician Department Coordinator note has been reviewed by physician. Signing provider agrees with the documented findings, assessment, and plan of care. Objective - Vital Signs Vital signs: Vital Signs Temp 97.7 F 12/10/23 08:00 Pulse 156 H 12/10/23 11:00 Resp 24 12/10/23 11:00 BP 124/96 12/10/23 11:00 Pulse Ox 91 L 12/10/23 11:00 FiO2 50 12/10/23 10:29 Intake & Output 12/09/23 12/10/23 12/10/23 18:59 06:59 18:59 Intake Total 3027.587 3436.272 1458.102 Output Total 680 755 195 Balance 2347.587 2681.272 1263.102 Weight 101.4 kg 104.9 kg Intake: IV 2350 2700 1102 0.9 40 Albumin Human 25% 50 ml 100 In Empty Bag 1 bag @ 50 mls/hr IVPB Q1H [facility] Rx#: [id number] Calcium Gluconate in NaCl 100 1 gm In Saline 1 100ml. bag @ 100 mls/hr IVPB ONCE ONE Rx#:[id number] Dextrose 5% in Water 1, 1350 1800 450 000 ml @ 150 mls/hr IV . Q7H40M [facility] with Sodium Bicarb (1 Meq/ml) 150 ml Rx#:[id number] Magnesium Sulfate-D5w Pmx 100 1 gm In Dextrose/Water 1 100ml.bag @ 100 mls/hr IVPB ONCE ONE Rx#: [id number] Meropenem 1 gm In Sodium 200 100 100 Chloride 0.9% 100 ml @ 33 .3 mls/hr IVPB Q8HR [facility] Rx#:[id number] Potassium Chloride 20 meq 200 In Water For Injection 1 100ml.bag @ 50 mls/hr IVPB Q2H [facility] Rx#: [id number] Potassium Chloride 20 meq 100 In Water For Injection 1 100ml.bag @ 50 mls/hr IVPB Q2H [facility] Rx#: [id number] Vancomycin 1,500 mg In 500 500 500 Sodium Chloride 0.9% 500 ml 500 ml @ 167 mls/hr IVPB Q12HR [facility] Rx#: [id number] pressure bag 12 Intake, IV Titration 237.587 262.272 198.102 Amount Diltiazem 125 mg In 22.5 Sodium Chloride 0.9% 100 ml @ 5 MG/HR 5 mls/hr IV .Q24H [facility] Rx#:[id number] Heparin Sod,Pork in 0.45% 114.739 NaCl 25,000 unit In 0.45 % NaCl 1 250ml.bag @ 10. 661 UNITS/KG/HR 10 mls/hr IV .Q24H [facility] Rx#: [id number] Norepinephrine 8 mg In 99.553 52.635 50.549 Sodium Chloride 0.9% 250 ml @ 0.03 MCG/KG/MIN 5. 445 mls/hr IV .Q24H [facility] Rx#:[id number] Vasopressin 20 unit In 51 43.095 48.144 Sodium Chloride 0.9% 50 ml @ 0.03 UNITS/MIN 4.59 mls/hr IV .Q11H7M [facility] Rx# :[id number] propofoL 1,000 mg In 87.034 51.803 76.909 Empty Bag 1 bag @ 15 MCG/ KG/MIN 7.348 mls/hr IV . [id number] [facility] Rx#:[id number] Tube Feeding 180 384 128 Other 260 90 30 Output: Drainage 150 150 Abdomen 150 150 Urine 380 605 195 Stool 150 Other: Voiding Method Indwelling Catheter Indwelling Catheter ABP, PAP, CO, CI - Last Documented Arterial Blood Pressure 106/51 - Labs CBC & Chem 7: 12/10/23 03:54 12/10/23 11:45 Labs: Abnormal Lab Results - Last 24 Hours (Table) 12/09/23 12/09/23 12/10/23 Range/Units 15:10 18:08 00:20 WBC (3.8-10.6) k/uL RBC (3.80-5.40) m/uL Hgb (11.4-16.0) gm/dL Hct (34.0-46.0) % RDW (11.5-15.5) % Neutrophils # (1.3-7.7) k/uL APTT (22.0-30.0) sec ABG pCO2 (35-45) mmHg ABG pO2 (83-108) mmHg ABG HCO3 (21-25) mmol/L ABG Total CO2 (19-24) mmol/L ABG O2 Saturation (94-97) % Potassium (3.5-5.1) mmol/L Chloride 115 H (98-107) mmol/L Carbon Dioxide 20 L (22-30) mmol/L Glucose 114 H (74-99) mg/dL POC Glucose (mg/dL) 145 H 175 H (70-110) mg/dL Calcium 6.8 L (8.4-10.2) mg/dL 12/10/23 12/10/23 12/10/23 Range/Units 03:54 03:54 03:54 WBC 19.7 H (3.8-10.6) k/uL RBC 3.49 L (3.80-5.40) m/uL Hgb 9.1 L (11.4-16.0) gm/dL Hct 28.1 L (34.0-46.0) % RDW 21.3 H (11.5-15.5) % Neutrophils # 17.1 H (1.3-7.7) k/uL APTT 55.7 H (22.0-30.0) sec ABG pCO2 (35-45) mmHg ABG pO2 (83-108) mmHg ABG HCO3 (21-25) mmol/L ABG Total CO2 (19-24) mmol/L ABG O2 Saturation (94-97) % Potassium 2.8 L (3.5-5.1) mmol/L Chloride 112 H (98-107) mmol/L Carbon Dioxide (22-30) mmol/L Glucose 144 H (74-99) mg/dL POC Glucose (mg/dL) (70-110) mg/dL Calcium 6.4 L* (8.4-10.2) mg/dL 12/10/23 12/10/23 12/10/23 Range/Units 06:42 09:31 11:36 WBC (3.8-10.6) k/uL RBC (3.80-5.40) m/uL Hgb (11.4-16.0) gm/dL Hct (34.0-46.0) % RDW (11.5-15.5) % Neutrophils # (1.3-7.7) k/uL APTT (22.0-30.0) sec ABG pCO2 48 H (35-45) mmHg ABG pO2 55 L* (83-108) mmHg ABG HCO3 29 H (21-25) mmol/L ABG Total CO2 30 H (19-24) mmol/L ABG O2 Saturation 87.6 L (94-97) % Potassium (3.5-5.1) mmol/L Chloride (98-107) mmol/L Carbon Dioxide (22-30) mmol/L Glucose (74-99) mg/dL POC Glucose (mg/dL) 202 H 133 H (70-110) mg/dL Calcium (8.4-10.2) mg/dL Microbiology - Last 24 Hours (Table) 12/09/23 16:45 Gram Stain - Preliminary Aspirate 12/04/23 15:45 Blood Culture - Final Blood 12/08/23 08:46 Blood Culture - Preliminary Blood 12/04/23 16:00 Blood Culture Gram Stain - Final Blood Blood Culture - Preliminary 12/07/23 11:32 Gram Stain - Preliminary Sputum Sputum Culture - Preliminary Romelia albicans
--- NOTE | 2023-12-10 16:45 | P.PN ---
Subjective Progress Note Date: 12/10/23 Atrial fibrillation This is a 73-year-old female patient was admitted to the hospital initially with perforated diverticulitis complicated by Colocutaneous fistula and subsequently she underwent surgery. The surgery was complicated by cardiogenic shock. The patient currently is on 2 vasopressors including vasopressin's as well as norepinephrine. We initially seen the patient and signed off on her before. We saw her for preop cardiac assessment for noncardiac surgery. We requested to see the patient again because she developed atrial fibrillation with RVR. Her pressure continues to be low. She was started on amiodarone IV which I would agree on. She also was started on heparin IV which I would agree on. The echo during the hospital stay showed mildly impaired LV function with EF around 45%. Another echo was requested and performed and we are in process to have the results. The examination is remarkable for the patient being intubated on mechanical ventilation currently on 2 vasopressors as well as regular rate and rhythm with a distant heart sounds and diminished breathing sounds bilaterally Progress note 12/09/2023 Patient is on Levophed 0.05, vasopressin 0.03. Patient has continued to be in sinus rhythm in last 24 hours with no atrial fibrillation activity. Left ostomy and a midline in place. Echo shows an EF of 50%, mild to moderate MR Labs shows hemoglobin 9.8, sodium 141, potassium 3.0, creatinine 0.6 12/10/2023 Patient is on norepinephrine 0.04, vasopressin 0.04, Cardizem 5. Admitted to atrial fibrillation last night. Patient is continue to be on p.o. amiodarone and IV heparin drip. Labs shows hemoglobin 9.1, WBC 19.7, creatinine 0.5 Assessment Perforated diverticulitis complicated by [place] cutaneous fistula status post surgery Septic shock Paroxysmal atrial fibrillation and this is a new diagnosis to the patient Multiple comorbid conditions Plan Continue amiodarone 400 mg twice daily for 7 days (12/15/23). After 7 days cut down to 200 mg twice daily. Continue IV heparin drip. Once patient is extubated and have more recovery and we do not anticipate any procedures, will transition to oral anticoagulation Discontinue Cardizem. Only do Cardizem if heart rate is sustaining above 130 to 140 bpm. Cut down norepinephrine first and then vasopressin if needed. Once off pressors, will add low-dose metoprolol Objective - Vital Signs Vital signs: Vital Signs Temp 97.7 F 12/10/23 16:00 Pulse 68 12/10/23 16:00 Resp 24 12/10/23 16:00 BP 108/48 12/10/23 14:00 Pulse Ox 99 12/10/23 16:00 FiO2 50 12/10/23 15:32 Intake & Output 12/09/23 12/10/23 12/10/23 18:59 06:59 18:59 Intake Total 3027.587 3436.272 1926.413 Output Total 680 755 345 Balance 2347.587 2681.272 1581.413 Weight 101.4 kg 104.9 kg 104.9 kg Intake: IV 2350 2700 1267 0.9 90 Albumin Human 25% 50 ml 100 In Empty Bag 1 bag @ 50 mls/hr IVPB Q1H [facility] Rx#: [id number] Calcium Gluconate in NaCl 100 1 gm In Saline 1 100ml. bag @ 100 mls/hr IVPB ONCE ONE Rx#:[id number] Dextrose 5% in Water 1, 1350 1800 450 000 ml @ 150 mls/hr IV . Q7H40M [facility] with Sodium Bicarb (1 Meq/ml) 150 ml Rx#:[id number] Magnesium Sulfate-D5w Pmx 100 1 gm In Dextrose/Water 1 100ml.bag @ 100 mls/hr IVPB ONCE ONE Rx#: [id number] Meropenem 1 gm In Sodium 200 100 200 Chloride 0.9% 100 ml @ 33 .3 mls/hr IVPB Q8HR [facility] Rx#:[id number] Potassium Chloride 20 meq 200 In Water For Injection 1 100ml.bag @ 50 mls/hr IVPB Q2H [facility] Rx#: [id number] Potassium Chloride 20 meq 100 In Water For Injection 1 100ml.bag @ 50 mls/hr IVPB Q2H [facility] Rx#: [id number] Vancomycin 1,500 mg In 500 500 500 Sodium Chloride 0.9% 500 ml 500 ml @ 167 mls/hr IVPB Q12HR [facility] Rx#: [id number] pressure bag 27 Intake, IV Titration 237.587 262.272 270.413 Amount Diltiazem 125 mg In 22.5 Sodium Chloride 0.9% 100 ml @ Titrate IV .Q24H [facility] Rx#:[id number] Heparin Sod,Pork in 0.45% 114.739 NaCl 25,000 unit In 0.45 % NaCl 1 250ml.bag @ 10. 661 UNITS/KG/HR 10 mls/hr IV .Q24H [facility] Rx#: [id number] Norepinephrine 8 mg In 99.553 52.635 83.794 Sodium Chloride 0.9% 250 ml @ 0.03 MCG/KG/MIN 5. 445 mls/hr IV .Q24H [facility] Rx#:[id number] Vasopressin 20 unit In 51 43.095 87.210 Sodium Chloride 0.9% 50 ml @ 0.03 UNITS/MIN 4.59 mls/hr IV .Q11H7M [facility] Rx# :[id number] propofoL 1,000 mg In 87.034 51.803 76.909 Empty Bag 1 bag @ 15 MCG/ KG/MIN 7.348 mls/hr IV . [id number] [facility] Rx#:[id number] Tube Feeding 180 384 299 Other 260 90 90 Output: Drainage 150 150 Abdomen 150 150 Urine 380 605 345 Stool 150 Other: Voiding Method Indwelling Catheter Indwelling Catheter Indwelling Catheter ABP, PAP, CO, CI - Last Documented Arterial Blood Pressure 114/57 - Labs CBC & Chem 7: 12/10/23 03:54 12/10/23 11:45 Labs: Abnormal Lab Results - Last 24 Hours (Table) 12/09/23 12/10/23 12/10/23 Range/Units 18:08 00:20 03:54 WBC (3.8-10.6) k/uL RBC (3.80-5.40) m/uL Hgb (11.4-16.0) gm/dL Hct (34.0-46.0) % RDW (11.5-15.5) % Neutrophils # (1.3-7.7) k/uL APTT (22.0-30.0) sec ABG pCO2 (35-45) mmHg ABG pO2 (83-108) mmHg ABG HCO3 (21-25) mmol/L ABG Total CO2 (19-24) mmol/L ABG O2 Saturation (94-97) % Potassium 2.8 L (3.5-5.1) mmol/L Chloride 112 H (98-107) mmol/L Glucose 144 H (74-99) mg/dL POC Glucose (mg/dL) 145 H 175 H (70-110) mg/dL Calcium 6.4 L* (8.4-10.2) mg/dL 12/10/23 12/10/23 12/10/23 Range/Units 03:54 03:54 06:42 WBC 19.7 H (3.8-10.6) k/uL RBC 3.49 L (3.80-5.40) m/uL Hgb 9.1 L (11.4-16.0) gm/dL Hct 28.1 L (34.0-46.0) % RDW 21.3 H (11.5-15.5) % Neutrophils # 17.1 H (1.3-7.7) k/uL APTT 55.7 H (22.0-30.0) sec ABG pCO2 (35-45) mmHg ABG pO2 (83-108) mmHg ABG HCO3 (21-25) mmol/L ABG Total CO2 (19-24) mmol/L ABG O2 Saturation (94-97) % Potassium (3.5-5.1) mmol/L Chloride (98-107) mmol/L Glucose (74-99) mg/dL POC Glucose (mg/dL) 202 H (70-110) mg/dL Calcium (8.4-10.2) mg/dL 12/10/23 12/10/23 Range/Units 09:31 11:36 WBC (3.8-10.6) k/uL RBC (3.80-5.40) m/uL Hgb (11.4-16.0) gm/dL Hct (34.0-46.0) % RDW (11.5-15.5) % Neutrophils # (1.3-7.7) k/uL APTT (22.0-30.0) sec ABG pCO2 48 H (35-45) mmHg ABG pO2 55 L* (83-108) mmHg ABG HCO3 29 H (21-25) mmol/L ABG Total CO2 30 H (19-24) mmol/L ABG O2 Saturation 87.6 L (94-97) % Potassium (3.5-5.1) mmol/L Chloride (98-107) mmol/L Glucose (74-99) mg/dL POC Glucose (mg/dL) 133 H (70-110) mg/dL Calcium (8.4-10.2) mg/dL Microbiology - Last 24 Hours (Table) 12/07/23 11:32 Gram Stain - Final Sputum Sputum Culture - Final Romelia albicans 12/09/23 16:45 Gram Stain - Preliminary Aspirate 12/04/23 15:45 Blood Culture - Final Blood 12/08/23 08:46 Blood Culture - Preliminary Blood 12/04/23 16:00 Blood Culture Gram Stain - Final Blood Blood Culture - Preliminary
[2023-12-10 18:06] LABS: Glucose,Whole Blood 127 mg/dL (70-110)
--- NOTE | 2023-12-10 19:03 | P.PN ---
Subjective This is a pleasant 73 years old female who presents to the emergency room for lower abdominal fistula drainage, associated with generalized weakness. Patient looks awake alert but tired looking, pale. Feels generally weak. N has mild generalized abdominal pain and tenderness. No rebound tenderness. Blood with malodorous left lower abdominal fistula drainage with fecal material coming out. Patient also with right rotation. Patient also with unstageable sacral pressure ulcer. With some evidence of cellulitis. Patient is mildly confused. But no headache or weakness in upper or lower patient was hypotensive with a blood pressure/42, currently slightly better 96/43. Potassium is low 2.9, WBC elevated 23,000, hemoglobin 7.4. Creatinine 0.7. Liver enzymes unremarkable. CT of the abdomen pelvis showing sigmoid diverticulitis and proctitis. 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 Please refer to the report for more details. Patient was ordered received normal saline boluses. Currently on Normosol at 130 mL/h She received 1 dose of Zosyn and started on Flagyl. We are going to add cefepime for gram-negative coverage. 12/05/2023 Patient is awake and alert, generally weak and tired, mildly drowsy Denies abdominal pain or tenderness, she has fistula in the left lower abdomen She denies chest pain or dyspnea. No headache dizziness weakness or numbness. No breathing difficulty. And currently she is saturating well on room air. Blood pressure is still on the low side.but is improving while on IV fluid Glucose 65 and her fluids changed to D5 normal saline at 1 30 mL/h She is currently covered with cefepime and IV Flagyl and IV Protonix She has leukocytosis of 23,000, hemoglobin stable 7.9, low potassium been replaced. Magnesium is normal 2.0. B12 541, Elevated ESR 75 and CRP 25 Patient at moderate risk for her multiple medical problems. Because of this ec hocardiogram was requested and cardiology consulted for preop evaluation. 12/06/2023 Patient remains awake and oriented, mildly lethargic Patient today was supposed to go for surgery to fix her enteric fistula Blood pressure was on the low side this morning I got a call from the bedside nurse blood pressure was 68/32, a bolus of normal saline is provided as well as midodrine Blood pressure a little low after first bolus, where going to give her another bolus of 1 L follow-up with the blood pressure. 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 Plant Etiologist eval into the patient for preop assessment and there is no contraindication to proceed with surgery. Patient remains on normal saline with 30 mL/h, cefepime, IV Flagyl and IV Protonix 12/07/2023 Patient s/p sigmoid colectomy and taken down the fistula with peritoneal lavage, creatinine descending colostomy pouch with rectum Gabriel procedure by surgery team Postoperatively and perioperatively patient was hypotensive, after the procedure she got intubated and sent to the intensive care unit and started on pressors Patient remains on excessive hydration She is making about 10 to 20 mL of urine output She remains on broad-spectrum antibiotics with IV cefepime and Flagyl Patient labs and vitals are reviewed 12/08/2023 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 Patient was started on amiodarone and heparin drip Also patient abdomen soft but she is becoming more anuric She still intubated on mechanical ventilation with assist-control Her leukocytosis is worse at 33,000 urine cultures grewing Klebsiella. Blood cultures positive for gram negative bacilli Her antibiotics was adjusted to meropenem and IV vancomycin. Her fluids running normal saline changed to sodium bicarb at 150 mL/h She is still on IV Protonix Her albumin is low so they are going to give her 1 dose of albumin IV if no imp rovement 12/09/2023 Patient remains in the ICU intubated and sedated She was still on pressors this morning on Levophed at 0.09, bicarbonate drip at 150 mL also vasopressin 0.03. She still has wound VAC in his abdomen. Patient blood pressure started improving 115/45 Potassium 3.4, WBC trending down to 28,000, hemoglobin 9.8. Albumin is 1.5 and patient 2 more bags of albumin 25 g to support her system as she has anasarca and significant swelling of the lower extremities. Patient remains also on broad-spectrum antibiotics with IV vancomycin and meropenem. She is also on Protonix. Discussed with staff. 12/10/2023 pt remains in the icu intubated and sedated pt chest xray showing left hemilthorax collapse pt requiring pressors, planning to wean down if possible c'w treatment for a fib with amiodaron and heparin drip still on broad spectrum antibioitc Review of systems: Unable to obtain due to intubation Active Medications Generic Name Dose Route Start Last Admin Trade Name Freq PRN Reason Stop Dose Admin Acetaminophen 650 mg 12/04/23 18:04 Acetaminophen Tab 325 Mg Tab PO Q6HR PRN Mild Pain or Fever > 100.5 Amiodarone HCl 400 mg 12/09/23 09:00 12/10/23 08:10 Amiodarone 200 Mg Tab NG-TUBE 12/14/23 21:00 400 mg BID [facility] Administration Chlorhexidine Gluconate 15 ml 12/06/23 21:00 12/10/23 08:10 Chlorhexidine Gluconate 15 Ml Cup MUCOUS MEM 15 ml BID [facility] Administration Heparin Sodium (Porcine) 0 unit 12/08/23 11:28 Heparin Sodium 1,000 Un/Ml (10ml Vl) IV PER PROTOCOL PRN Low PTT Protocol Hydromorphone HCl 1 mg 12/07/23 07:57 12/10/23 02:36 Hydromorphone 1 Mg/Ml 1 Ml Syringe IVP 1 mg Q3HR PRN Administration Pain Propofol 1,000 mg/ IV Solution 100 mls @ 7.348 mls/hr 12/06/23 20:00 12/10/23 10:46 IV 15 mcg/kg/min .[id number] [facility] 7.348 mls/hr Titration Protocol 15 MCG/KG/MIN Norepinephrine Bitartrate 8 mg 258 mls @ 5.445 mls/hr 12/08/23 06:00 12/10/23 16:29 / Sodium Chloride IV 0.02 mcg/kg/min .Q24H [facility] 3.63 mls/hr Titration Protocol 0.03 MCG/KG/MIN Meropenem 1 gm/ Sodium 100 mls @ 33.3 mls/hr 12/08/23 08:00 12/10/23 15:51 Chloride IVPB 33.3 mls/hr Q8HR [facility] Administration Protocol Vasopressin 20 unit/ Sodium 51 mls @ 4.59 mls/hr 12/08/23 08:00 12/10/23 14:22 Chloride IV 0.04 units/min .Q11H7M [facility] 6.12 mls/hr Administration Protocol 0.03 UNITS/MIN Heparin Sodium/Sodium Chloride 250 mls @ 10 mls/hr 12/08/23 11:30 12/10/23 06:24 25,000 unit/ Sodium Chloride IV 4.66 units/kg/hr .Q24H [facility] 4.371 mls/hr Administration Protocol 10.661 UNITS/KG/HR Diltiazem HCl 125 mg/ Sodium 125 mls @ 0 mls/hr 12/10/23 07:30 12/10/23 11:41 Chloride IV 0 mg/hr .Q24H [facility] 0 mls/hr Titration Titrate Vancomycin HCl 1,250 mg/ 250 mls @ 125 mls/hr 12/10/23 21:00 Sodium Chloride IVPB Q12HR [facility] Insulin Aspart 0 unit 12/09/23 12:00 12/10/23 18:05 Insulin Aspart (Novolog) 100 Unit/Ml Vial SQ Not Given Q6H [facility] Protocol Midodrine 5 mg 12/06/23 10:00 12/10/23 18:09 Midodrine 5 Mg Tab PO 5 mg AC-TID [facility] Administration Miscellaneous Information 1 each 12/04/23 19:17 Magnesium Replacement Protocol 1 Each Misc MISCELLANE DAILY PRN Per Protocol Protocol Miscellaneous Information 1 each 12/06/23 22:34 Potassium Replacement Protocol 1 Each Misc MISCELLANE DAILY PRN Per Protocol Protocol Morphine Sulfate 4 mg 12/04/23 18:04 Morphine Sulfate 4 Mg/Ml Syringe IV Q4HR PRN Severe Pain (Scale 7 to 10) Naloxone HCl 0.2 mg 12/04/23 18:04 Naloxone 0.4 Mg/Ml 1 Ml Vial IV Q2M PRN Opioid Reversal Pantoprazole Sodium 40 mg 12/05/23 09:00 12/10/23 08:09 Pantoprazole 40 Mg/10 Ml Vial IVP 40 mg DAILY [facility] Administration Petrolatum 1 applic 12/09/23 03:33 Zinc Oxide Paste (Z-Guard) 1 Applic TOPICAL BID PRN Wound Healing Protocol Objective - Vital Signs Vital signs: Vital Signs Temp 98.5 F 12/10/23 04:00 Pulse 154 H 12/10/23 07:00 Resp 24 12/10/23 07:00 BP 115/70 12/10/23 07:00 Pulse Ox 100 12/10/23 07:00 FiO2 50 12/10/23 10:29 Intake & Output 12/09/23 12/10/23 12/10/23 18:59 06:59 18:59 Intake Total 3027.587 3436.272 348.159 Output Total 680 755 60 Balance 2347.587 2681.272 288.159 Weight 101.4 kg 104.9 kg Intake: IV 2350 2700 150 Albumin Human 25% 50 ml 100 In Empty Bag 1 bag @ 50 mls/hr IVPB Q1H [facility] Rx#: [id number] Calcium Gluconate in NaCl 100 1 gm In Saline 1 100ml. bag @ 100 mls/hr IVPB ONCE ONE Rx#:[id number] Dextrose 5% in Water 1, 1350 1800 150 000 ml @ 150 mls/hr IV . Q7H40M [facility] with Sodium Bicarb (1 Meq/ml) 150 ml Rx#:[id number] Magnesium Sulfate-D5w Pmx 100 1 gm In Dextrose/Water 1 100ml.bag @ 100 mls/hr IVPB ONCE ONE Rx#: [id number] Meropenem 1 gm In Sodium 200 100 Chloride 0.9% 100 ml @ 33 .3 mls/hr IVPB Q8HR [facility] Rx#:[id number] Potassium Chloride 20 meq 200 In Water For Injection 1 100ml.bag @ 50 mls/hr IVPB Q2H [facility] Rx#: [id number] Potassium Chloride 20 meq 100 In Water For Injection 1 100ml.bag @ 50 mls/hr IVPB Q2H [facility] Rx#: [id number] Vancomycin 1,500 mg In 500 500 Sodium Chloride 0.9% 500 ml 500 ml @ 167 mls/hr IVPB Q12HR [facility] Rx#: [id number] Intake, IV Titration 237.587 262.272 166.159 Amount Heparin Sod,Pork in 0.45% 114.739 NaCl 25,000 unit In 0.45 % NaCl 1 250ml.bag @ 10. 661 UNITS/KG/HR 10 mls/hr IV .Q24H [facility] Rx#: [id number] Norepinephrine 8 mg In 99.553 52.635 44.045 Sodium Chloride 0.9% 250 ml @ 0.03 MCG/KG/MIN 5. 445 mls/hr IV .Q24H [facility] Rx#:[id number] Vasopressin 20 unit In 51 43.095 48.144 Sodium Chloride 0.9% 50 ml @ 0.03 UNITS/MIN 4.59 mls/hr IV .Q11H7M [facility] Rx# :[id number] propofoL 1,000 mg In 87.034 51.803 73.97 Empty Bag 1 bag @ 15 MCG/ KG/MIN 7.348 mls/hr IV . [id number] [facility] Rx#:[id number] Tube Feeding 180 384 32 Other 260 90 Output: Drainage 150 150 Abdomen 150 150 Urine 380 605 60 Stool 150 Other: Voiding Method Indwelling Catheter Indwelling Catheter ABP, PAP, CO, CI - Last Documented Arterial Blood Pressure 108/62 - Exam -GENERAL: The patient is intubated and sedated HEENT: Pupils are round and equally reacting to light. EOMI. No scleral icterus. No conjunctival pallor. Normocephalic, atraumatic. No pharyngeal erythema. No thyromegaly. CARDIOVASCULAR: S1 and S2 present. No murmurs, rubs, or gallops. PULMONARY: Chest is clear to auscultation, no wheezing , no crackles. -ABDOMEN: Soft, nontender, nondistended, normoactive bowel sounds. No palpable organomegaly. Left lower abdominal colostomy bag MUSCULOSKELETAL: No joint swelling or deformity. -EXTREMITIES: No cyanosis, clubbing, or pedal edema. Right knee amputation, old NEUROLOGICAL: Gross neurological examination did not reveal any focal deficits. SKIN: No rashes. no petechiae. - Labs CBC & Chem 7: 12/10/23 03:54 12/10/23 11:45 Labs: Abnormal Lab Results - Last 24 Hours (Table) 12/09/23 12/09/23 12/09/23 Range/Units 11:38 15:10 18:08 WBC (3.8-10.6) k/uL RBC (3.80-5.40) m/uL Hgb (11.4-16.0) gm/dL Hct (34.0-46.0) % RDW (11.5-15.5) % Neutrophils # (1.3-7.7) k/uL APTT (22.0-30.0) sec ABG pCO2 (35-45) mmHg ABG pO2 (83-108) mmHg ABG HCO3 (21-25) mmol/L ABG Total CO2 (19-24) mmol/L ABG O2 Saturation (94-97) % Potassium (3.5-5.1) mmol/L Chloride 115 H (98-107) mmol/L Carbon Dioxide 20 L (22-30) mmol/L Glucose 114 H (74-99) mg/dL POC Glucose (mg/dL) 209 H 145 H (70-110) mg/dL Calcium 6.8 L (8.4-10.2) mg/dL 12/10/23 12/10/23 12/10/23 Range/Units 00:20 03:54 03:54 WBC (3.8-10.6) k/uL RBC (3.80-5.40) m/uL Hgb (11.4-16.0) gm/dL Hct (34.0-46.0) % RDW (11.5-15.5) % Neutrophils # (1.3-7.7) k/uL APTT 55.7 H (22.0-30.0) sec ABG pCO2 (35-45) mmHg ABG pO2 (83-108) mmHg ABG HCO3 (21-25) mmol/L ABG Total CO2 (19-24) mmol/L ABG O2 Saturation (94-97) % Potassium 2.8 L (3.5-5.1) mmol/L Chloride 112 H (98-107) mmol/L Carbon Dioxide (22-30) mmol/L Glucose 144 H (74-99) mg/dL POC Glucose (mg/dL) 175 H (70-110) mg/dL Calcium 6.4 L* (8.4-10.2) mg/dL 12/10/23 12/10/23 12/10/23 Range/Units 03:54 06:42 09:31 WBC 19.7 H (3.8-10.6) k/uL RBC 3.49 L (3.80-5.40) m/uL Hgb 9.1 L (11.4-16.0) gm/dL Hct 28.1 L (34.0-46.0) % RDW 21.3 H (11.5-15.5) % Neutrophils # 17.1 H (1.3-7.7) k/uL APTT (22.0-30.0) sec ABG pCO2 48 H (35-45) mmHg ABG pO2 55 L* (83-108) mmHg ABG HCO3 29 H (21-25) mmol/L ABG Total CO2 30 H (19-24) mmol/L ABG O2 Saturation 87.6 L (94-97) % Potassium (3.5-5.1) mmol/L Chloride (98-107) mmol/L Carbon Dioxide (22-30) mmol/L Glucose (74-99) mg/dL POC Glucose (mg/dL) 202 H (70-110) mg/dL Calcium (8.4-10.2) mg/dL Microbiology - Last 24 Hours (Table) 12/04/23 15:45 Blood Culture - Final Blood 12/08/23 08:46 Blood Culture - Preliminary Blood 12/04/23 16:00 Blood Culture Gram Stain - Final Blood Blood Culture - Preliminary 12/07/23 11:32 Gram Stain - Preliminary Sputum Sputum Culture - Preliminary Romelia albicans Assessment and Plan Assessment: Acute sigmoid sigmoid colitis, diverticulitis with proctitis. With multiple entero-cutaneous and entero-vesical fistulas, including to the left lower abdominal wall. Septic shock Acute hypoxic respiratory failure requiring intubation and mechanical ventilation Gram-negative bacteremia A-fib and RVR Acute kidney injury, oliguric Acute anemia, unknown baseline, chronic microcytic Full-thickness sacral pressure ulcer, with no obvious osseous erosions. Metabolic encephalopathy, with possible elements of delirium Bilateral adrenal nodule, recommend follow-up CT in 3 months. Acute urinary tract infection/cystitis. Culture is growing Klebsiella Anasarca With severe hypoalbuminemia Plan: Continue with IV fluid and monitor vitals. currently on sodium bicarb at 150 Continue with antibiotic, meropenem and IV vancomycin, ID team on the case Continue with wound care and wound VAC in place with surgery team following closely Patient remains intubated on mechanical ventilation with pulmonary/critical care team consult Cardiology team following closely Continue with amiodarone pills and heparin drip per toolroom helper IV Protonix Give albumin for hypoalbuminemia Monitor and follow-up blood culture DVT prophylaxis: heparin, SCD GI prophylaxis: Protonix Prognosis guarded,
[2023-12-10 19:35] LABS: Appearance,BF Cloudy (Clear); RBC, Body Fluid 70 /UL (0-2000)
[2023-12-10] MEDS: VANCOMYCIN 1,250 MG in SODIUM CHLORIDE 0.9% 250 ML IVPB SCH (20:16)
[2023-12-10 20:45] LABS: African American GFR (CKD) >90 (>60 ml/min/1.73 sqM); Anion Gap -2 mmol/L; Blood Urea Nitrogen 15 mg/dL (7-17); Calcium 6.6 mg/dL (8.4-10.2); Carbon Dioxide 27 mmol/L (22-30); Chloride 111 mmol/L (98-107); Glucose 149 mg/dL (74-99); Magnesium 1.9 mg/dL (1.6-2.3); Non-African American GFR(CKD) >90 (>60 ml/min/1.73 sqM); Potassium 3.9 mmol/L (3.5-5.1); Sodium 136 mmol/L (137-145)
[2023-12-10] MEDS: POTASSIUM CHLORIDE 10 MEQ in WATER FOR INJECTION 1 100ML.BAG IVPB SCH (22:09)
[2023-12-10 23:53] LABS: Glucose,Whole Blood 148 mg/dL (70-110)
[2023-12-11 00:18] LABS: Glucose,Whole Blood 191 mg/dL (70-110)
[2023-12-11 04:16] LABS: Anisocytosis Moderate; Basophils % (A) 0 %; Eosinophils # (A) 0.2 k/uL (0-0.7); Eosinophils % (A) 1 %; HCT 31.9 % (34.0-46.0); HGB 9.9 gm/dL (11.4-16.0); Hypochromasia Marked; Lymphocytes # (A) 1.2 k/uL (1.0-4.8); Lymphocytes % (A) 6 %; MCH 25.5 pg (25.0-35.0); MCV 82.3 fL (80.0-100.0); Mean Platelet Volume 8.3; Microcytosis Slight; Monocytes # (A) 0.4 k/uL (0-1.0); Monocytes % (A) 2 %; Neutrophils # (A) 18.4 k/uL (1.3-7.7); Neutrophils % (A) 90 %; Platelet Count 235 k/uL (150-450); Poikilocytosis Slight; RBC 3.88 m/uL (3.80-5.40); RDW 21.1 % (11.5-15.5); WBC 20.4 k/uL (3.8-10.6)
[2023-12-11 04:22] LABS: ALT 8 U/L (4-34); AST 13 U/L (14-36); African American GFR (CKD) >90 (>60 ml/min/1.73 sqM); Albumin 1.6 g/dL (3.5-5.0); Alkaline Phosphatase 123 U/L (38-126); Anion Gap -1 mmol/L; Bilirubin, Delta 0.4 mg/dL (0.0-0.2); Bilirubin,Unconjugated 0.2 mg/dL (0.0-1.1); Blood Urea Nitrogen 16 mg/dL (7-17); Calcium 6.7 mg/dL (8.4-10.2); Carbon Dioxide 27 mmol/L (22-30); Chloride 110 mmol/L (98-107); Glucose 135 mg/dL (74-99); Non-African American GFR(CKD) >90 (>60 ml/min/1.73 sqM); Sodium 136 mmol/L (137-145); Total Bilirubin 0.6 mg/dL (0.2-1.3); Total Protein 3.6 g/dL (6.3-8.2)
[2023-12-11] MEDS: HEPARIN SODIUM 1,000 UN/ML (10ML VL) IV PRN (04:34)
[2023-12-11] MEDS: POTASSIUM CHLORIDE 10 MEQ in WATER FOR INJECTION 1 100ML.BAG IVPB SCH (05:04)
[2023-12-11 05:50] LABS: Glucose,Whole Blood 154 mg/dL (70-110)
[2023-12-11 05:57] LABS: ABG Base Excess 5.4 mmol/L; ABG HCO3 29 mmol/L (21-25); ABG Oxygen Saturation 97.6 % (94-97); ABG PCO2 39 mmHg (35-45); ABG PH 7.48 (7.35-7.45); ABG PO2 96 mmHg (83-108); ABG TCO2 30 mmol/L (19-24); Allen Test Performed? Yes
--- NOTE | 2023-12-11 07:35 | XR ---
EXAMINATION TYPE: XR chest 1V portable DATE OF EXAM: 12/11/2023 COMPARISON: 12/10/2023 HISTORY: SOB, Follow Up FINDINGS: Indwelling tubes and catheters are unchanged. No change in bibasilar opacities. Improving aeration left upper lobe. Stable appearance of the cardio-mediastinal structures at this time. Pleural effusion unchanged. IMPRESSION: 1. Stable portable chest. Clinical correlation and follow up until resolution is recommended.
[2023-12-11] MEDS: FUROSEMIDE 10 MG/ML 4 ML VIAL IV STA (08:48)
[2023-12-11 09:54] LABS: Nucleated Cells, Body Fluid 280 /UL
[2023-12-11 12:07] LABS: Glucose,Whole Blood 169 mg/dL (70-110)
--- NOTE | 2023-12-11 12:33 | P.PN ---
Subjective Progress Note Date: 12/11/23 Principal diagnosis: Abdominal sepsis, diverticulitis, gram-negative bacteremia This is a 74-year-old female patient who was brought into the intensive care unit after an extensive abdominal surgery. The patient underwent exploratory laparotomy and sigmoid colectomy and diverging colostomy. The patient was emergently taken to the operating room this afternoon as the patient was becoming hypotensive and she had developed persistent leukocytosis intermittent fevers consistent with sepsis and septic shock. The patient was also becoming hypotensive despite being resuscitated with IV fluids and the patient preoperatively received a total of 3 L of IV fluids. An emergent surgical exploration was indicated. 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 At this point in time, the patient is sedated and the patient is currently on propofol. She is intubated on mechanical ventilator and she is on assist- control mode at a rate of 12, tidal volume of 400, FiO2 of 100% and a PEEP of 5. Chest x-ray shows a right IJ triple-lumen catheter. ET tube is in good location. No airspace disease or consolidation. The blood gases showed a pH of 7.22 with a pCO2 of 51 and pO2 of 255. The patient is currently on no pressors and urine output is quite diminished in the order of 10 to 20 cc since arrival from the operating room. The patient is on IV cefepime and Flagyl. Received a total of 2 unit PRBC intraop 12/07/2023, I am seeing the patient for a follow-up in the intensive care unit. The patient is currently postop day #1. The patient remains intubated on the mechanical ventilator. This morning, the patient is on propofol which is running at 30 mcg/kg/min. She was resuscitated with IV fluids. She was maintained on normal saline at rate of 150 cc an hour and norepinephrine was also added overnight and currently norepinephrine is running at 0.07 mcg/kg/min. Her urine output is in the order of 10 to 20 cc an hour. Overall fluid balance over the past 24 hours has been +3.6 L. The patient remains on a combination of cefepime and Flagyl. The blood work from today shows a WBC count of 37.4, hemoglobin 10.7 and platelet count of 499. BUN is at 15 with a creatinine of 0.8. Sodium is at 143 from yesterday. Repeat electrolytes are still pending for now. Meanwhile, the patient remains intubated on mechanical ventilator. This morning, she is on assist-control mode at rate of 24, tidal volume of 400, FiO2 is at 55% with a PEEP of 5. The blood gas shows a pH of 7.38 with a pCO2 of 31 and pO2 of 119. Review of the chest x-ray from this morning shows adequate positioning of the orotracheal tube. This may need to be pushed in by 1 cm. The patient has a small atelectasis/left-sided pleural effusion. Otherwise, the right lung is essentially clear at this point in time. Antibiotic coverage includes a combination of cefepime and Flagyl. The patient will need Dilaudid for pain control. She is on heparin subcu for DVT prophy laxis. She is resting comfortably in bed. No other significant events overnight. Currently she is afebrile. The wound VAC is in place. Colostomy site is not fully functional at this point in time. Abdomen is soft. 12/08/2023, the patient remains intubated on mechanical ventilator and she is in the intensive care unit postop day #2. The patient remains on a mechanical ventilator. She is currently on assist-control mode with rate of 24, tidal volume of 400, FiO2 of 50% with a PEEP of 5. The blood gases from this morning showed a pH of 7.28 with a pCO2 of 32 and pO2 of 105. The chest x-ray was reviewed and shows evidence of left basilar effusion/atelectasis. Orotracheal tube is in good location. The patient is triple-lumen catheter in her right IJ. Unfortunately, at around 3 AM this morning, the patient went into A-fib RVR and the patient became profoundly hypotensive. The patient progressively required higher dose of norepinephrine and currently norepinephrine is running at 0.2 mcg/kg/min and her mean arterial pressure is around 64. At the same time, the patient received treatment for her new onset atrial fibrillation. She was given an amiodarone bolus and currently she is on amiodarone at 0.5 mg/min. Based on her underlying hypotension. The patient was thought to hemodynamically unstable with A-fib RVR. The patient received cardioversion on 3 separate occasions using 120 J, 150 J and 200 J. Those attempts failed and the patient remained in atrial fibrillation. Her current heart rate is running at around 150 beats a minute, irregular. Urine output has dropped and the patient is producing only 10 cc an hour. At the same time, the patient's white cell count is up to 33.3 with a hemoglobin 12.1 and platelet count of 412. NG tube is in place. Output is minimal. Abdomen remains soft. The wound VAC is still in place. There is some liquidy stool material in the colostomy bag. No abdominal distention. The patient has been developing progressive edema and upper extremities in the left lower extremity. 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 Rest of the electrolytes show a sodium level of 143, serum bicarb is down to 12, anion gap is at 6, BUN is at 17 with a creatinine of 0.8. Magnesium level is at 1.9 with a calcium level of 7.9. The patient remains on IV cefepime and Flagyl. Urine culture from 12/04/2023 was positive for Klebsiella pneumoniae. She is currently afebrile. Propofol is running at 35 mcg/kg/min. The patient has been adequately sedated for now. Patient was reevaluated today on 12/09/2023, remains intubated and mechanically ventilated. On assist-control rate of 24 tidal volume 400 FiO2 50% and PEEP of 5. ABG showed a pO2 of 128 pCO2 35 pH 7.39. His FiO2 was cut down to 40% instead of 50%. Patient remained on multiple drips including norepinephrine, 0.04 mcg/kg/min, propofol at 35 mcg/kg/min, vasopressin at 0.03 units/min, D5W with 3 A of bicarb running at 150 cc/h. Patient is receiving vancomycin and Merrem. Patient has a left IJ triple-lumen catheter and left radial arterial line. Urine is positive Klebsiella, blood cultures were noted to be also positive for gram-negative bacilli. Most likely Klebsiella. Patient is on Merrem and she is on vancomycin patient is now postoperative day #3. Patient received 2 units of packed RBCs, since admission, hemoglobin now is 9.8, hemoglobin went as low as 7.4 on 12/04 labs today showed PTT of 57.4, basic metabolic profile is normal except for low potassium of 3.0 bicarb is 16, renal profile is normal WBC count is 28.5 hemoglobin is 9.8 urine cultures are positive for Klebsiella pneumoniae. Nutrition hicks the patient is receiving vit al HP 10 cc/h. Patient remains in atrial fibrillation, rate seems to be reasonably controlled Patient was reevaluated today on 12/10/2023, remains in the ICU, intubated and mechanically ventilated. Earlier this morning I was made aware of the patient's chest x-ray showing complete collapse of the left lung, and tracheal deviation to the ipsilateral side. This was clearly consistent with mucous plugging involving the left mainstem bronchus. Hence the patient underwent bronchoscopy, suctioning of the mucous plugs, and bronchoalveolar lavage of the left upper lobe lingula and left lower lobe. Please refer to the full operative report regarding this procedure. Patient remains intubated, mechanically ventilated, she is on assist-control rate of 24 tidal volume 400 FiO2 is now 50% PEEP of 10 and I cut it down to 8. Patient remains on multiple drips including norepinephrine at 0.06 mcg/kg/min vasopressin at 0.04 units/h, bicarb drip which I have discontinued today, Cardizem drip at 5 mg/h. Patient is also on heparin drip, propofol at 15 mcg/kg/min. Antibiotics hicks remains on Merrem for Klebsiella infection involving urine and blood. Chest x-ray as noted above, patient had complete opacification of the left lung, however after bronchoscopy and BAL significant improvement was noted and aeration of left lung significantly improved. ABG this morning on 40% showed a pO2 of 55 pCO2 48 and pH of 7.39 BBC count is 19.7, improving hemoglobin is 9.1. Platelets 253. ASIC metabolic profile is normal and renal profile is normal Patient was placed today on 12/11/2023, remains in the ICU, intubated and mechanically ventilated, sedated. On assist-control rate of 24 tidal volume 400 FiO2 50% and PEEP of 8 patient is requiring hemodynamic support with vasopressin 0.04 units, norepinephrine at 0.03 mcg/kg/min, patient is nutritionally supported with vital HP at 53 mL/h. ABG showed a pO2 of 96 pCO2 39 pH of 7.48. Patient remains on vancomycin and Merrem, urine output is about 40 cc/h hence I recommended Lasix to be given today 40 mg IV push x 1. Patient has a functioning ostomy, and she continues to have a wound VAC in place. CODE STATUS has been changed to DNR, yesterday, the patient underwent a bronchoscopy for complete opacification of the left lung, cultures from the BAL are pending, on today's chest x-ray there is minimal atelectasis in the left midlung, left lung remains relatively fully expanded Objective - Vital Signs Vital signs: Vital Signs Temp 99.7 F H 12/11/23 08:00 Pulse 90 12/11/23 11:00 Resp 27 H 12/11/23 11:00 BP 113/65 12/11/23 10:30 Pulse Ox 96 12/11/23 11:00 FiO2 45 12/11/23 11:07 Intake & Output 12/10/23 12/11/23 12/11/23 18:59 06:59 18:59 Intake Total 7128.369 8399.947 436.550 Output Total 146 318 9860 Balance 8715.022 4453.947 -783.450 Weight 104.9 kg 104.9 kg Intake: IV 1287 1100 100 0.9 110 200 100 Dextrose 5% in Water 1, 450 000 ml @ 150 mls/hr IV . Q7H40M [facility] with Sodium Bicarb (1 Meq/ml) 150 ml Rx#:[id number] Magnesium Sulfate-D5w Pmx 100 1 gm In Dextrose/Water 1 100ml.bag @ 100 mls/hr IVPB ONCE ONE Rx#: [id number] Meropenem 1 gm In Sodium 200 Chloride 0.9% 100 ml @ 33 .3 mls/hr IVPB Q8HR [facility] Rx#:[id number] Potassium Chloride 10 meq 300 In Water For Injection 1 100ml.bag @ 100 mls/hr IVPB Q1H [facility] Rx#: [id number] Vancomycin 1,500 mg In 500 500 Sodium Chloride 0.9% 500 ml 500 ml @ 167 mls/hr IVPB Q12HR [facility] Rx#: [id number] pressure bag 27 Intake, IV Titration 270.413 375.947 51.550 Amount Diltiazem 125 mg In 22.5 Sodium Chloride 0.9% 100 ml @ Titrate IV .Q24H [facility] Rx#:[id number] Heparin Sod,Pork in 0.45% 96.963 NaCl 25,000 unit In 0.45 % NaCl 1 250ml.bag @ 10. 661 UNITS/KG/HR 10 mls/hr IV .Q24H [facility] Rx#: [id number] Norepinephrine 8 mg In 83.794 41.08 38.569 Sodium Chloride 0.9% 250 ml @ 0.03 MCG/KG/MIN 5. 445 mls/hr IV .Q24H [facility] Rx#:[id number] Vasopressin 20 unit In 87.210 89.352 Sodium Chloride 0.9% 50 ml @ 0.03 UNITS/MIN 4.59 mls/hr IV .Q11H7M [facility] Rx# :[id number] propofoL 1,000 mg In 76.909 148.552 12.981 Empty Bag 1 bag @ 15 MCG/ KG/MIN 7.348 mls/hr IV . [id number] [facility] Rx#:[id number] Tube Feeding 299 523 265 Other 90 90 20 Output: Drainage 200 Abdomen 200 Urine 420 380 920 Stool 300 Other: Voiding Method Indwelling Catheter Indwelling Catheter Indwelling Catheter ABP, PAP, CO, CI - Last Documented Arterial Blood Pressure 102/47 - Exam General: Reveals 71-year-old female intubated mechanically ventilated sedated, patient will be given a sedation holiday today to assess mental status. Skin: No rashes. Eye: Pupils are equal, round and reactive to light, extra-ocular movements are intact; there is normal conjunctiva bilaterally. Ears, nose, mouth and throat: There are moist mucous membranes and no oral lesions. Neck: The neck is supple, there is no tenderness or JVD. Cardiovascular: There is a regular rate and rhythm. No murmur, rub or gallop is appreciated. Respiratory: Good breath sound bilaterally no crackles rhonchi or wheezes Gastrointestinal: Bowel sounds are hypoactive/absent. There is a mid abdominal wound and the surgical scar is clean and the wound VAC noted. Musculoskeletal: Right above-knee amputation is noted otherwise unremarkable. Neurological: Could not assess, patient is sedated. Psychiatric: Not assessed - Labs CBC & Chem 7: 12/11/23 03:53 12/11/23 03:53 Labs: Abnormal Lab Results - Last 24 Hours (Table) 12/10/23 12/10/23 12/10/23 Range/Units 07:20 18:04 19:50 WBC (3.8-10.6) k/uL Hgb (11.4-16.0) gm/dL Hct (34.0-46.0) % RDW (11.5-15.5) % Neutrophils # (1.3-7.7) k/uL APTT (22.0-30.0) sec ABG pH (7.35-7.45) ABG HCO3 (21-25) mmol/L ABG Total CO2 (19-24) mmol/L ABG O2 Saturation (94-97) % Sodium 136 L (137-145) mmol/L Chloride 111 H (98-107) mmol/L Creatinine 0.51 L (0.52-1.04) mg/dL Glucose 149 H (74-99) mg/dL POC Glucose (mg/dL) 127 H (70-110) mg/dL Calcium 6.6 L (8.4-10.2) mg/dL Delta Bilirubin (0.0-0.2) mg/dL AST (14-36) U/L Total Protein (6.3-8.2) g/dL Albumin (3.5-5.0) g/dL Fluid Appearance Cloudy A (Clear) 12/10/23 12/11/23 12/11/23 Range/Units 23:51 00:17 03:53 WBC 20.4 H (3.8-10.6) k/uL Hgb 9.9 L (11.4-16.0) gm/dL Hct 31.9 L (34.0-46.0) % RDW 21.1 H (11.5-15.5) % Neutrophils # 18.4 H (1.3-7.7) k/uL APTT (22.0-30.0) sec ABG pH (7.35-7.45) ABG HCO3 (21-25) mmol/L ABG Total CO2 (19-24) mmol/L ABG O2 Saturation (94-97) % Sodium (137-145) mmol/L Chloride (98-107) mmol/L Creatinine (0.52-1.04) mg/dL Glucose (74-99) mg/dL POC Glucose (mg/dL) 148 H 191 H (70-110) mg/dL Calcium (8.4-10.2) mg/dL Delta Bilirubin (0.0-0.2) mg/dL AST (14-36) U/L Total Protein (6.3-8.2) g/dL Albumin (3.5-5.0) g/dL Fluid Appearance (Clear) 12/11/23 12/11/23 12/11/23 Range/Units 03:53 03:53 05:47 WBC (3.8-10.6) k/uL Hgb (11.4-16.0) gm/dL Hct (34.0-46.0) % RDW (11.5-15.5) % Neutrophils # (1.3-7.7) k/uL APTT 36.6 H (22.0-30.0) sec ABG pH 7.48 H (7.35-7.45) ABG HCO3 29 H (21-25) mmol/L ABG Total CO2 30 H (19-24) mmol/L ABG O2 Saturation 97.6 H (94-97) % Sodium 136 L (137-145) mmol/L Chloride 110 H (98-107) mmol/L Creatinine 0.51 L (0.52-1.04) mg/dL Glucose 135 H (74-99) mg/dL POC Glucose (mg/dL) (70-110) mg/dL Calcium 6.7 L (8.4-10.2) mg/dL Delta Bilirubin 0.4 H (0.0-0.2) mg/dL AST 13 L (14-36) U/L Total Protein 3.6 L (6.3-8.2) g/dL Albumin 1.6 L (3.5-5.0) g/dL Fluid Appearance (Clear) 12/11/23 12/11/23 12/11/23 Range/Units 05:48 10:50 12:06 WBC (3.8-10.6) k/uL Hgb (11.4-16.0) gm/dL Hct (34.0-46.0) % RDW (11.5-15.5) % Neutrophils # (1.3-7.7) k/uL APTT 50.2 H (22.0-30.0) sec ABG pH (7.35-7.45) ABG HCO3 (21-25) mmol/L ABG Total CO2 (19-24) mmol/L ABG O2 Saturation (94-97) % Sodium (137-145) mmol/L Chloride (98-107) mmol/L Creatinine (0.52-1.04) mg/dL Glucose (74-99) mg/dL POC Glucose (mg/dL) 154 H 169 H (70-110) mg/dL Calcium (8.4-10.2) mg/dL Delta Bilirubin (0.0-0.2) mg/dL AST (14-36) U/L Total Protein (6.3-8.2) g/dL Albumin (3.5-5.0) g/dL Fluid Appearance (Clear) Microbiology - Last 24 Hours (Table) 12/10/23 07:20 Gram Stain - Preliminary Bronchoalviolar Lavage - Left Bronchial Washings Culture - Preliminary 12/09/23 16:45 Gram Stain - Preliminary Aspirate Body Fluid Culture - Preliminary Romelia albicans 12/08/23 08:46 Blood Culture - Preliminary Blood 12/07/23 11:32 Gram Stain - Final Sputum Sputum Culture - Final Romelia albicans Assessment and Plan Assessment: Impression: Status post exploratory laparotomy colectomy and diverting colostomy and debridement of cutaneous fistula postoperative day #5 Abdominal sepsis and septic shock New onset atrial fibrillation with RVR Gram-negative bacteremia Klebsiella pneumonia urinary tract infection Leukocytosis secondary to above, improving. Acute hypoxic and hypercapnic respiratory failure secondary to above Left basilar atelectasis and effusion None anion gap metabolic acidosis, resolved, bicarb drip was discontinued today History of previous right above-knee amputation Left buttocks unstageable pressure ulcer Hydropic gallbladder with multiple gallstones Adrenal nodules Left lung collapse secondary to mucous plugging, status post bronchoscopy mucous plug suctioning and lavage of left lung, done 12/10/2023 Recommendation: Continue ventilatory changes and vent settings made today. Continue hemodynamic support, patient is requiring norepinephrine and vasopressin Continue antibiotics as per infectious disease on the case. Merrem and vancomycin Continue nutritional support, patient is on enteral feeding Continue GI and DVT prophylaxis continue amiodarone and heparin for atrial fibrillation, patient is in sinus rhythm today Daily assessment of weaning and sedation interruption including today with assessment of mental status, this will be attempted again of sedation to assess mental status, patient is not ready for any weaning trials Patient does not seem to be ready for weaning considering all the medical issues and the relative hemodynamic instability requiring pressors Patient remains critically ill. Critical care time is over 30 minutes Time with Patient: Greater than 30
--- NOTE | 2023-12-11 12:41 | P.PN ---
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 The surgery was complicated by cardiogenic shock. The patient currently is on 2 vasopressors including vasopressin's as well as norepinephrine. We initially seen the patient and signed off on her before. We saw her for preop cardiac assessment for noncardiac surgery. We requested to see the patient again because she developed atrial fibrillation with RVR. Her pressure continues to be low. She was started on amiodarone IV which I would agree on. She also was started on heparin IV which I would agree on. The echo during the hospital stay showed mildly impaired LV function with EF around 45%. Another echo was requested and performed and we are in process to have the results. The examination is remarkable for the patient being intubated on mechanical ventilation currently on 2 vasopressors as well as regular rate and rhythm with a distant heart sounds and diminished breathing sounds bilaterally Progress note 12/09/2023 Patient is on Levophed 0.05, vasopressin 0.03. Patient has continued to be in sinus rhythm in last 24 hours with no atrial fibrillation activity. Left ostomy and a midline in place. Echo shows an EF of 50%, mild to moderate MR Labs shows hemoglobin 9.8, sodium 141, potassium 3.0, creatinine 0.6 12/10/2023 Patient is on norepinephrine 0.04, vasopressin 0.04, Cardizem 5. Admitted to atrial fibrillation last night. Patient is continue to be on p.o. amiodarone and IV heparin drip. Labs shows hemoglobin 9.1, WBC 19.7, creatinine 0.5 12/11/23 BP 104/45, heart rate 85 bpm. Patient intermittently goes into atrial fibrillation on and off but does not sustain in atrial fibrillation. Currently patient is in sinus rhythm. Hemoglobin 9.9, WBC 20, creatinine 0.5 Patient is still on norepinephrine and vasopressin. Will try to wean her off norepinephrine today. Patient has failed weaning trial today. Patient is no code Assessment Perforated diverticulitis complicated by [employer] cutaneous fistula status post surgery Septic shock Paroxysmal atrial fibrillation and this is a new diagnosis to the patient Multiple comorbid conditions Plan Continue amiodarone 400 mg twice daily for 7 days (12/15/23). After 7 days cut down to 200 mg twice daily. Continue IV heparin drip. Once patient is extubated and have more recovery and we do not anticipate any procedures, will transition to oral anticoagulation Discontinue Cardizem. Only do Cardizem if heart rate is sustaining above 130 to 140 bpm. Cut down norepinephrine first and then vasopressin if needed. Once off pressors, will add low-dose metoprolol Objective - Vital Signs Vital signs: Vital Signs Temp 97.6 F 12/11/23 12:00 Pulse 96 12/11/23 12:30 Resp 22 12/11/23 12:30 BP 98/54 12/11/23 12:30 Pulse Ox 97 12/11/23 12:30 FiO2 45 12/11/23 12:37 Intake & Output 12/10/23 12/11/23 12/11/23 18:59 06:59 18:59 Intake Total 1602.717 4776.947 569.550 Output Total 431 386 1835 Balance 2332.745 0492.947 -825.450 Weight 104.9 kg 104.9 kg Intake: IV 1287 1100 120 0.9 110 200 120 Dextrose 5% in Water 1, 450 000 ml @ 150 mls/hr IV . Q7H40M [facility] with Sodium Bicarb (1 Meq/ml) 150 ml Rx#:[id number] Magnesium Sulfate-D5w Pmx 100 1 gm In Dextrose/Water 1 100ml.bag @ 100 mls/hr IVPB ONCE ONE Rx#: [id number] Meropenem 1 gm In Sodium 200 Chloride 0.9% 100 ml @ 33 .3 mls/hr IVPB Q8HR [facility] Rx#:[id number] Potassium Chloride 10 meq 300 In Water For Injection 1 100ml.bag @ 100 mls/hr IVPB Q1H [facility] Rx#: [id number] Vancomycin 1,500 mg In 500 500 Sodium Chloride 0.9% 500 ml 500 ml @ 167 mls/hr IVPB Q12HR [facility] Rx#: [id number] pressure bag 27 Intake, IV Titration 270.413 375.947 51.550 Amount Diltiazem 125 mg In 22.5 Sodium Chloride 0.9% 100 ml @ Titrate IV .Q24H [facility] Rx#:[id number] Heparin Sod,Pork in 0.45% 96.963 NaCl 25,000 unit In 0.45 % NaCl 1 250ml.bag @ 10. 661 UNITS/KG/HR 10 mls/hr IV .Q24H [facility] Rx#: [id number] Norepinephrine 8 mg In 83.794 41.08 38.569 Sodium Chloride 0.9% 250 ml @ 0.03 MCG/KG/MIN 5. 445 mls/hr IV .Q24H [facility] Rx#:[id number] Vasopressin 20 unit In 87.210 89.352 Sodium Chloride 0.9% 50 ml @ 0.03 UNITS/MIN 4.59 mls/hr IV .Q11H7M [facility] Rx# :[id number] propofoL 1,000 mg In 76.909 148.552 12.981 Empty Bag 1 bag @ 15 MCG/ KG/MIN 7.348 mls/hr IV . [id number] [facility] Rx#:[id number] Tube Feeding 299 523 318 Other 90 90 80 Output: Drainage 200 Abdomen 200 Urine 428 828 3917 Stool 300 Other: Voiding Method Indwelling Catheter Indwelling Catheter Indwelling Catheter ABP, PAP, CO, CI - Last Documented Arterial Blood Pressure 104/45 - Labs CBC & Chem 7: 12/11/23 03:53 12/11/23 03:53 Labs: Abnormal Lab Results - Last 24 Hours (Table) 12/10/23 12/10/23 12/10/23 Range/Units 07:20 18:04 19:50 WBC (3.8-10.6) k/uL Hgb (11.4-16.0) gm/dL Hct (34.0-46.0) % RDW (11.5-15.5) % Neutrophils # (1.3-7.7) k/uL APTT (22.0-30.0) sec ABG pH (7.35-7.45) ABG HCO3 (21-25) mmol/L ABG Total CO2 (19-24) mmol/L ABG O2 Saturation (94-97) % Sodium 136 L (137-145) mmol/L Chloride 111 H (98-107) mmol/L Creatinine 0.51 L (0.52-1.04) mg/dL Glucose 149 H (74-99) mg/dL POC Glucose (mg/dL) 127 H (70-110) mg/dL Calcium 6.6 L (8.4-10.2) mg/dL Delta Bilirubin (0.0-0.2) mg/dL AST (14-36) U/L Total Protein (6.3-8.2) g/dL Albumin (3.5-5.0) g/dL Fluid Appearance Cloudy A (Clear) 12/10/23 12/11/23 12/11/23 Range/Units 23:51 00:17 03:53 WBC 20.4 H (3.8-10.6) k/uL Hgb 9.9 L (11.4-16.0) gm/dL Hct 31.9 L (34.0-46.0) % RDW 21.1 H (11.5-15.5) % Neutrophils # 18.4 H (1.3-7.7) k/uL APTT (22.0-30.0) sec ABG pH (7.35-7.45) ABG HCO3 (21-25) mmol/L ABG Total CO2 (19-24) mmol/L ABG O2 Saturation (94-97) % Sodium (137-145) mmol/L Chloride (98-107) mmol/L Creatinine (0.52-1.04) mg/dL Glucose (74-99) mg/dL POC Glucose (mg/dL) 148 H 191 H (70-110) mg/dL Calcium (8.4-10.2) mg/dL Delta Bilirubin (0.0-0.2) mg/dL AST (14-36) U/L Total Protein (6.3-8.2) g/dL Albumin (3.5-5.0) g/dL Fluid Appearance (Clear) 12/11/23 12/11/23 12/11/23 Range/Units 03:53 03:53 05:47 WBC (3.8-10.6) k/uL Hgb (11.4-16.0) gm/dL Hct (34.0-46.0) % RDW (11.5-15.5) % Neutrophils # (1.3-7.7) k/uL APTT 36.6 H (22.0-30.0) sec ABG pH 7.48 H (7.35-7.45) ABG HCO3 29 H (21-25) mmol/L ABG Total CO2 30 H (19-24) mmol/L ABG O2 Saturation 97.6 H (94-97) % Sodium 136 L (137-145) mmol/L Chloride 110 H (98-107) mmol/L Creatinine 0.51 L (0.52-1.04) mg/dL Glucose 135 H (74-99) mg/dL POC Glucose (mg/dL) (70-110) mg/dL Calcium 6.7 L (8.4-10.2) mg/dL Delta Bilirubin 0.4 H (0.0-0.2) mg/dL AST 13 L (14-36) U/L Total Protein 3.6 L (6.3-8.2) g/dL Albumin 1.6 L (3.5-5.0) g/dL Fluid Appearance (Clear) 12/11/23 12/11/23 12/11/23 Range/Units 05:48 10:50 12:06 WBC (3.8-10.6) k/uL Hgb (11.4-16.0) gm/dL Hct (34.0-46.0) % RDW (11.5-15.5) % Neutrophils # (1.3-7.7) k/uL APTT 50.2 H (22.0-30.0) sec ABG pH (7.35-7.45) ABG HCO3 (21-25) mmol/L ABG Total CO2 (19-24) mmol/L ABG O2 Saturation (94-97) % Sodium (137-145) mmol/L Chloride (98-107) mmol/L Creatinine (0.52-1.04) mg/dL Glucose (74-99) mg/dL POC Glucose (mg/dL) 154 H 169 H (70-110) mg/dL Calcium (8.4-10.2) mg/dL Delta Bilirubin (0.0-0.2) mg/dL AST (14-36) U/L Total Protein (6.3-8.2) g/dL Albumin (3.5-5.0) g/dL Fluid Appearance (Clear) Microbiology - Last 24 Hours (Table) 12/10/23 07:20 Gram Stain - Preliminary Bronchoalviolar Lavage - Left Bronchial Washings Culture - Preliminary 12/09/23 16:45 Gram Stain - Preliminary Aspirate Body Fluid Culture - Preliminary Romelia albicans 12/08/23 08:46 Blood Culture - Preliminary Blood 12/07/23 11:32 Gram Stain - Final Sputum Sputum Culture - Final Romelia albicans
--- NOTE | 2023-12-11 15:15 | P.PN ---
Subjective Progress Note Date: 12/11/23 CHIEF COMPLAINT: Perforated diverticular disease with fistulization to the skin HISTORY OF PRESENT ILLNESS: The patient is a 89-[id number]-year-old female status post exploratory laparotomy, Magaña's procedure for colocutaneous fistula and septic shock. Patient remains in the ICU intubated and on mechanical ventilation. Patient did receive a dose of IV Lasix today for low urine output. She is very edematous. Patient remains on Levophed. Ostomy is functioning. Prevana wound vac fluid culture with Romelia albicans PHYSICAL EXAM: VITAL SIGNS: Reviewed GENERAL: no acute distress. HEENT: No sclera icterus. Extraocular movements grossly intact. Moist buccal mucosa. Head is atraumatic, normocephalic. Hears conversational speech. No nasal drainage. NECK: Supple without lymphadenopathy. CHEST: Non-labored respirations and equal bilateral excursions. CARDIOVASCULAR: Palpable 2+ radial pulses. ABDOMEN: Soft. Nondistended. Prevana wound vac intact and to wall suction. Stoma beefy red. Stool in ostomy bag MUSCULOSKELETAL: No clubbing or cyanosis. NEUROLOGIC: No focal or lateralizing signs. Cranial nerves II through XII grossly intact. PSYCH: Intubated SKIN: Well perfused. Good skin turgor. ASSESSMENT: 1. Septic shock 2. 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 Lack of general medical care 4. Complicated left groin wound, 4 cm 5. Intermesenteric abscess, pelvis 6. Left inguinal hernia 7. Oliguric 8. Atrial fibrillation with rapid ventricular response PLAN: -Continue ICU management -Vent management per critical care service -Continue tube feeds through NG tube -Continue Prevana wound VAC system to high wall suction -Wound vac to be changed per Dr. Felipe at bedside tomorrow -Continue pain management -Continue antibiotics per ID service Physician Operator Cavity Pump note has been reviewed by physician. Signing provider agrees with the documented findings, assessment, and plan of care. Objective - Vital Signs Vital signs: Vital Signs Temp 97.6 F 12/11/23 12:00 Pulse 96 12/11/23 12:30 Resp 22 12/11/23 12:30 BP 98/54 12/11/23 12:30 Pulse Ox 97 12/11/23 12:30 FiO2 45 12/11/23 12:37 Intake & Output 0312/11/23 12/11/23 18:59 06:59 18:59 Intake Total 3494.317 0172.947 586.490 Output Total 125 236 9686 Balance 1175.286 0213.947 -808.510 Weight 104.9 kg 104.9 kg Intake: IV 1287 1100 120 0.9 110 200 120 Dextrose 5% in Water 1, 450 000 ml @ 150 mls/hr IV . Q7H40M [facility] with Sodium Bicarb (1 Meq/ml) 150 ml Rx#:[id number] Magnesium Sulfate-D5w Pmx 100 1 gm In Dextrose/Water 1 100ml.bag @ 100 mls/hr IVPB ONCE ONE Rx#: [id number] Meropenem 1 gm In Sodium 200 Chloride 0.9% 100 ml @ 33 .3 mls/hr IVPB Q8HR [facility] Rx#:[id number] Potassium Chloride 10 meq 300 In Water For Injection 1 100ml.bag @ 100 mls/hr IVPB Q1H [facility] Rx#: [id number] Vancomycin 1,500 mg In 500 500 Sodium Chloride 0.9% 500 ml 500 ml @ 167 mls/hr IVPB Q12HR [facility] Rx#: [id number] pressure bag 27 Intake, IV Titration 270.413 375.947 68.490 Amount Diltiazem 125 mg In 22.5 Sodium Chloride 0.9% 100 ml @ Titrate IV .Q24H [facility] Rx#:[id number] Heparin Sod,Pork in 0.45% 96.963 NaCl 25,000 unit In 0.45 % NaCl 1 250ml.bag @ 10. 661 UNITS/KG/HR 10 mls/hr IV .Q24H [facility] Rx#: [id number] Norepinephrine 8 mg In 83.794 41.08 55.509 Sodium Chloride 0.9% 250 ml @ 0.03 MCG/KG/MIN 5. 445 mls/hr IV .Q24H [facility] Rx#:[id number] Vasopressin 20 unit In 87.210 89.352 Sodium Chloride 0.9% 50 ml @ 0.03 UNITS/MIN 4.59 mls/hr IV .Q11H7M [facility] Rx# :[id number] propofoL 1,000 mg In 76.909 148.552 12.981 Empty Bag 1 bag @ 15 MCG/ KG/MIN 7.348 mls/hr IV . [id number] [facility] Rx#:[id number] Tube Feeding 299 523 318 Other 90 90 80 Output: Drainage 200 Abdomen 200 Urine 455 541 8590 Stool 300 Other: Voiding Method Indwelling Catheter Indwelling Catheter Indwelling Catheter ABP, PAP, CO, CI - Last Documented Arterial Blood Pressure 104/45 - Labs CBC & Chem 7: 12/11/23 03:53 12/11/23 03:53 Labs: Abnormal Lab Results - Last 24 Hours (Table) 12/10/23 12/10/23 12/10/23 Range/Units 07:20 18:04 19:50 WBC (3.8-10.6) k/uL Hgb (11.4-16.0) gm/dL Hct (34.0-46.0) % RDW (11.5-15.5) % Neutrophils # (1.3-7.7) k/uL APTT (22.0-30.0) sec ABG pH (7.35-7.45) ABG HCO3 (21-25) mmol/L ABG Total CO2 (19-24) mmol/L ABG O2 Saturation (94-97) % Sodium 136 L (137-145) mmol/L Chloride 111 H (98-107) mmol/L Creatinine 0.51 L (0.52-1.04) mg/dL Glucose 149 H (74-99) mg/dL POC Glucose (mg/dL) 127 H (70-110) mg/dL Calcium 6.6 L (8.4-10.2) mg/dL Delta Bilirubin (0.0-0.2) mg/dL AST (14-36) U/L Total Protein (6.3-8.2) g/dL Albumin (3.5-5.0) g/dL Fluid Appearance Cloudy A (Clear) 12/10/23 12/11/23 12/11/23 Range/Units 23:51 00:17 03:53 WBC 20.4 H (3.8-10.6) k/uL Hgb 9.9 L (11.4-16.0) gm/dL Hct 31.9 L (34.0-46.0) % RDW 21.1 H (11.5-15.5) % Neutrophils # 18.4 H (1.3-7.7) k/uL APTT (22.0-30.0) sec ABG pH (7.35-7.45) ABG HCO3 (21-25) mmol/L ABG Total CO2 (19-24) mmol/L ABG O2 Saturation (94-97) % Sodium (137-145) mmol/L Chloride (98-107) mmol/L Creatinine (0.52-1.04) mg/dL Glucose (74-99) mg/dL POC Glucose (mg/dL) 148 H 191 H (70-110) mg/dL Calcium (8.4-10.2) mg/dL Delta Bilirubin (0.0-0.2) mg/dL AST (14-36) U/L Total Protein (6.3-8.2) g/dL Albumin (3.5-5.0) g/dL Fluid Appearance (Clear) 12/11/23 12/11/23 12/11/23 Range/Units 03:53 03:53 05:47 WBC (3.8-10.6) k/uL Hgb (11.4-16.0) gm/dL Hct (34.0-46.0) % RDW (11.5-15.5) % Neutrophils # (1.3-7.7) k/uL APTT 36.6 H (22.0-30.0) sec ABG pH 7.48 H (7.35-7.45) ABG HCO3 29 H (21-25) mmol/L ABG Total CO2 30 H (19-24) mmol/L ABG O2 Saturation 97.6 H (94-97) % Sodium 136 L (137-145) mmol/L Chloride 110 H (98-107) mmol/L Creatinine 0.51 L (0.52-1.04) mg/dL Glucose 135 H (74-99) mg/dL POC Glucose (mg/dL) (70-110) mg/dL Calcium 6.7 L (8.4-10.2) mg/dL Delta Bilirubin 0.4 H (0.0-0.2) mg/dL AST 13 L (14-36) U/L Total Protein 3.6 L (6.3-8.2) g/dL Albumin 1.6 L (3.5-5.0) g/dL Fluid Appearance (Clear) 12/11/23 12/11/23 12/11/23 Range/Units 05:48 10:50 12:06 WBC (3.8-10.6) k/uL Hgb (11.4-16.0) gm/dL Hct (34.0-46.0) % RDW (11.5-15.5) % Neutrophils # (1.3-7.7) k/uL APTT 50.2 H (22.0-30.0) sec ABG pH (7.35-7.45) ABG HCO3 (21-25) mmol/L ABG Total CO2 (19-24) mmol/L ABG O2 Saturation (94-97) % Sodium (137-145) mmol/L Chloride (98-107) mmol/L Creatinine (0.52-1.04) mg/dL Glucose (74-99) mg/dL POC Glucose (mg/dL) 154 H 169 H (70-110) mg/dL Calcium (8.4-10.2) mg/dL Delta Bilirubin (0.0-0.2) mg/dL AST (14-36) U/L Total Protein (6.3-8.2) g/dL Albumin (3.5-5.0) g/dL Fluid Appearance (Clear) Microbiology - Last 24 Hours (Table) 12/10/23 07:20 Gram Stain - Preliminary Bronchoalviolar Lavage - Left Bronchial Washings Culture - Preliminary 12/09/23 16:45 Gram Stain - Preliminary Aspirate Body Fluid Culture - Preliminary Romelia albicans 12/08/23 08:46 Blood Culture - Preliminary Blood 12/07/23 11:32 Gram Stain - Final Sputum Sputum Culture - Final Romelia albicans
[2023-12-11] MEDS: ANIDULAFUNGIN 200 MG in SODIUM CHLORIDE 0.9% 200 ML IVPB ONE (16:05)
[2023-12-11 17:11] LABS: Glucose,Whole Blood 158 mg/dL (70-110)
--- NOTE | 2023-12-11 21:32 | P.PN ---
Subjective This is a pleasant 73 years old female who presents to the emergency room for lower abdominal fistula drainage, associated with generalized weakness. Patient looks awake alert but tired looking, pale. Feels generally weak. N has mild generalized abdominal pain and tenderness. No rebound tenderness. Blood with malodorous left lower abdominal fistula drainage with fecal material coming out. Patient also with right rotation. Patient also with unstageable sacral pressure ulcer. With some evidence of cellulitis. Patient is mildly confused. But no headache or weakness in upper or lower patient was hypotensive with a blood pressure/42, currently slightly better 96/43. Potassium is low 2.9, WBC elevated 23,000, hemoglobin 7.4. Creatinine 0.7. Liver enzymes unremarkable. CT of the abdomen pelvis showing sigmoid diverticulitis and proctitis. 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 Please refer to the report for more details. Patient was ordered received normal saline boluses. Currently on Normosol at 130 mL/h She received 1 dose of Zosyn and started on Flagyl. We are going to add cefepime for gram-negative coverage. 12/05/2023 Patient is awake and alert, generally weak and tired, mildly drowsy Denies abdominal pain or tenderness, she has fistula in the left lower abdomen She denies chest pain or dyspnea. No headache dizziness weakness or numbness. No breathing difficulty. And currently she is saturating well on room air. Blood pressure is still on the low side.but is improving while on IV fluid Glucose 65 and her fluids changed to D5 normal saline at 1 30 mL/h She is currently covered with cefepime and IV Flagyl and IV Protonix She has leukocytosis of 23,000, hemoglobin stable 7.9, low potassium been replaced. Magnesium is normal 2.0. B12 541, Elevated ESR 75 and CRP 25 Patient at moderate risk for her multiple medical problems. Because of this ec hocardiogram was requested and cardiology consulted for preop evaluation. 12/06/2023 Patient remains awake and oriented, mildly lethargic Patient today was supposed to go for surgery to fix her enteric fistula Blood pressure was on the low side this morning I got a call from the bedside nurse blood pressure was 68/32, a bolus of normal saline is provided as well as midodrine Blood pressure a little low after first bolus, where going to give her another bolus of 1 L follow-up with the blood pressure. 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 Panel Sewer eval into the patient for preop assessment and there is no contraindication to proceed with surgery. Patient remains on normal saline with 30 mL/h, cefepime, IV Flagyl and IV Protonix 12/07/2023 Patient s/p sigmoid colectomy and taken down the fistula with peritoneal lavage, creatinine descending colostomy pouch with rectum Gabriel procedure by surgery team Postoperatively and perioperatively patient was hypotensive, after the procedure she got intubated and sent to the intensive care unit and started on pressors Patient remains on excessive hydration She is making about 10 to 20 mL of urine output She remains on broad-spectrum antibiotics with IV cefepime and Flagyl Patient labs and vitals are reviewed 12/08/2023 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 Patient was started on amiodarone and heparin drip Also patient abdomen soft but she is becoming more anuric She still intubated on mechanical ventilation with assist-control Her leukocytosis is worse at 33,000 urine cultures grewing Klebsiella. Blood cultures positive for gram negative bacilli Her antibiotics was adjusted to meropenem and IV vancomycin. Her fluids running normal saline changed to sodium bicarb at 150 mL/h She is still on IV Protonix Her albumin is low so they are going to give her 1 dose of albumin IV if no imp rovement 12/09/2023 Patient remains in the ICU intubated and sedated She was still on pressors this morning on Levophed at 0.09, bicarbonate drip at 150 mL also vasopressin 0.03. She still has wound VAC in his abdomen. Patient blood pressure started improving 115/45 Potassium 3.4, WBC trending down to 28,000, hemoglobin 9.8. Albumin is 1.5 and patient 2 more bags of albumin 25 g to support her system as she has anasarca and significant swelling of the lower extremities. Patient remains also on broad-spectrum antibiotics with IV vancomycin and meropenem. She is also on Protonix. Discussed with staff. 12/10/2023 pt remains in the icu intubated and sedated pt chest xray showing left hemilthorax collapse pt requiring pressors, planning to wean down if possible c'w treatment for a fib with amiodaron and heparin drip still on broad spectrum antibioitc 12/11/2023 Patient felt to be improving although she still intubated in the ICU in critical condition and followed closely by pulmonary/critical care team Levophed dose decreased from yesterday 0.09 down to 0.03. Bicarb drip was stopped. Vasopressin dose actually slightly increased from 0.03 up to 0.04. Heparin drip was continued. Patient continued on tube feeding Antibiotic with vancomycin and meropenem, Eraxis added today Objective - Vital Signs Vital signs: Vital Signs Temp 97.6 F 12/11/23 12:00 Pulse 96 12/11/23 12:30 Resp 22 12/11/23 12:30 BP 98/54 12/11/23 12:30 Pulse Ox 97 12/11/23 12:30 FiO2 45 12/11/23 12:37 Intake & Output 12/10/23 12/11/23 12/11/23 18:59 06:59 18:59 Intake Total 7787.118 8246.947 569.550 Output Total 113 240 0057 Balance 0477.036 5662.947 -825.450 Weight 104.9 kg 104.9 kg Intake: IV 1287 1100 120 0.9 110 200 120 Dextrose 5% in Water 1, 450 000 ml @ 150 mls/hr IV . Q7H40M [facility] with Sodium Bicarb (1 Meq/ml) 150 ml Rx#:[id number] Magnesium Sulfate-D5w Pmx 100 1 gm In Dextrose/Water 1 100ml.bag @ 100 mls/hr IVPB ONCE ONE Rx#: [id number] Meropenem 1 gm In Sodium 200 Chloride 0.9% 100 ml @ 33 .3 mls/hr IVPB Q8HR [facility] Rx#:[id number] Potassium Chloride 10 meq 300 In Water For Injection 1 100ml.bag @ 100 mls/hr IVPB Q1H [facility] Rx#: [id number] Vancomycin 1,500 mg In 500 500 Sodium Chloride 0.9% 500 ml 500 ml @ 167 mls/hr IVPB Q12HR [facility] Rx#: [id number] pressure bag 27 Intake, IV Titration 270.413 375.947 51.550 Amount Diltiazem 125 mg In 22.5 Sodium Chloride 0.9% 100 ml @ Titrate IV .Q24H [facility] Rx#:[id number] Heparin Sod,Pork in 0.45% 96.963 NaCl 25,000 unit In 0.45 % NaCl 1 250ml.bag @ 10. 661 UNITS/KG/HR 10 mls/hr IV .Q24H [facility] Rx#: [id number] Norepinephrine 8 mg In 83.794 41.08 38.569 Sodium Chloride 0.9% 250 ml @ 0.03 MCG/KG/MIN 5. 445 mls/hr IV .Q24H [facility] Rx#:[id number] Vasopressin 20 unit In 87.210 89.352 Sodium Chloride 0.9% 50 ml @ 0.03 UNITS/MIN 4.59 mls/hr IV .Q11H7M [facility] Rx# :[id number] propofoL 1,000 mg In 76.909 148.552 12.981 Empty Bag 1 bag @ 15 MCG/ KG/MIN 7.348 mls/hr IV . [id number] [facility] Rx#:[id number] Tube Feeding 299 523 318 Other 90 90 80 Output: Drainage 200 Abdomen 200 Urine 575 066 7163 Stool 300 Other: Voiding Method Indwelling Catheter Indwelling Catheter Indwelling Catheter ABP, PAP, CO, CI - Last Documented Arterial Blood Pressure 104/45 - Exam -GENERAL: The patient is intubated and sedated HEENT: Pupils are round and equally reacting to light. EOMI. No scleral icterus. No conjunctival pallor. Normocephalic, atraumatic. No pharyngeal erythema. No thyromegaly. CARDIOVASCULAR: S1 and S2 present. No murmurs, rubs, or gallops. PULMONARY: Chest is clear to auscultation, no wheezing , no crackles. -ABDOMEN: Soft, nontender, nondistended, normoactive bowel sounds. No palpable organomegaly. Left lower abdominal colostomy bag MUSCULOSKELETAL: No joint swelling or deformity. -EXTREMITIES: No cyanosis, clubbing, or pedal edema. Right knee amputation, old NEUROLOGICAL: Gross neurological examination did not reveal any focal deficits. SKIN: No rashes. no petechiae. - Labs CBC & Chem 7: 12/11/23 03:53 12/11/23 03:53 Labs: Abnormal Lab Results - Last 24 Hours (Table) 12/10/23 12/10/23 12/10/23 Range/Units 07:20 18:04 19:50 WBC (3.8-10.6) k/uL Hgb (11.4-16.0) gm/dL Hct (34.0-46.0) % RDW (11.5-15.5) % Neutrophils # (1.3-7.7) k/uL APTT (22.0-30.0) sec ABG pH (7.35-7.45) ABG HCO3 (21-25) mmol/L ABG Total CO2 (19-24) mmol/L ABG O2 Saturation (94-97) % Sodium 136 L (137-145) mmol/L Chloride 111 H (98-107) mmol/L Creatinine 0.51 L (0.52-1.04) mg/dL Glucose 149 H (74-99) mg/dL POC Glucose (mg/dL) 127 H (70-110) mg/dL Calcium 6.6 L (8.4-10.2) mg/dL Delta Bilirubin (0.0-0.2) mg/dL AST (14-36) U/L Total Protein (6.3-8.2) g/dL Albumin (3.5-5.0) g/dL Fluid Appearance Cloudy A (Clear) 12/10/23 12/11/23 12/11/23 Range/Units 23:51 00:17 03:53 WBC 20.4 H (3.8-10.6) k/uL Hgb 9.9 L (11.4-16.0) gm/dL Hct 31.9 L (34.0-46.0) % RDW 21.1 H (11.5-15.5) % Neutrophils # 18.4 H (1.3-7.7) k/uL APTT (22.0-30.0) sec ABG pH (7.35-7.45) ABG HCO3 (21-25) mmol/L ABG Total CO2 (19-24) mmol/L ABG O2 Saturation (94-97) % Sodium (137-145) mmol/L Chloride (98-107) mmol/L Creatinine (0.52-1.04) mg/dL Glucose (74-99) mg/dL POC Glucose (mg/dL) 148 H 191 H (70-110) mg/dL Calcium (8.4-10.2) mg/dL Delta Bilirubin (0.0-0.2) mg/dL AST (14-36) U/L Total Protein (6.3-8.2) g/dL Albumin (3.5-5.0) g/dL Fluid Appearance (Clear) 12/11/23 12/11/23 12/11/23 Range/Units 03:53 03:53 05:47 WBC (3.8-10.6) k/uL Hgb (11.4-16.0) gm/dL Hct (34.0-46.0) % RDW (11.5-15.5) % Neutrophils # (1.3-7.7) k/uL APTT 36.6 H (22.0-30.0) sec ABG pH 7.48 H (7.35-7.45) ABG HCO3 29 H (21-25) mmol/L ABG Total CO2 30 H (19-24) mmol/L ABG O2 Saturation 97.6 H (94-97) % Sodium 136 L (137-145) mmol/L Chloride 110 H (98-107) mmol/L Creatinine 0.51 L (0.52-1.04) mg/dL Glucose 135 H (74-99) mg/dL POC Glucose (mg/dL) (70-110) mg/dL Calcium 6.7 L (8.4-10.2) mg/dL Delta Bilirubin 0.4 H (0.0-0.2) mg/dL AST 13 L (14-36) U/L Total Protein 3.6 L (6.3-8.2) g/dL Albumin 1.6 L (3.5-5.0) g/dL Fluid Appearance (Clear) 12/11/23 12/11/23 12/11/23 Range/Units 05:48 10:50 12:06 WBC (3.8-10.6) k/uL Hgb (11.4-16.0) gm/dL Hct (34.0-46.0) % RDW (11.5-15.5) % Neutrophils # (1.3-7.7) k/uL APTT 50.2 H (22.0-30.0) sec ABG pH (7.35-7.45) ABG HCO3 (21-25) mmol/L ABG Total CO2 (19-24) mmol/L ABG O2 Saturation (94-97) % Sodium (137-145) mmol/L Chloride (98-107) mmol/L Creatinine (0.52-1.04) mg/dL Glucose (74-99) mg/dL POC Glucose (mg/dL) 154 H 169 H (70-110) mg/dL Calcium (8.4-10.2) mg/dL Delta Bilirubin (0.0-0.2) mg/dL AST (14-36) U/L Total Protein (6.3-8.2) g/dL Albumin (3.5-5.0) g/dL Fluid Appearance (Clear) Microbiology - Last 24 Hours (Table) 12/10/23 07:20 Gram Stain - Preliminary Bronchoalviolar Lavage - Left Bronchial Washings Culture - Preliminary 12/09/23 16:45 Gram Stain - Preliminary Aspirate Body Fluid Culture - Preliminary Romelia albicans 12/08/23 08:46 Blood Culture - Preliminary Blood 12/07/23 11:32 Gram Stain - Final Sputum Sputum Culture - Final Romelia albicans Assessment and Plan Assessment: Acute sigmoid sigmoid colitis, diverticulitis with proctitis. With multiple entero-cutaneous and entero-vesical fistulas, including to the left lower abdominal wall. Septic shock Acute hypoxic respiratory failure requiring intubation and mechanical ventilat ion Gram-negative bacteremia A-fib and RVR Acute kidney injury, oliguric Acute anemia, unknown baseline, chronic microcytic Full-thickness sacral pressure ulcer, with no obvious osseous erosions. Metabolic encephalopathy, with possible elements of delirium Bilateral adrenal nodule, recommend follow-up CT in 3 months. Acute urinary tract infection/cystitis. Culture is growing Klebsiella Anasarca With severe hypoalbuminemia Plan: Continue with IV fluid and monitor vitals. 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
[2023-12-12 01:23] LABS: Glucose,Whole Blood 140 mg/dL (70-110)
[2023-12-12 05:18] LABS: Anisocytosis Moderate; Basophils % (A) 0 %; Eosinophils # (A) 0.2 k/uL (0-0.7); Eosinophils % (A) 1 %; HCT 27.3 % (34.0-46.0); HGB 8.6 gm/dL (11.4-16.0); Hypochromasia Marked; Lymphocytes % (A) 6 %; MCH 26.5 pg (25.0-35.0); MCHC 31.6 g/dL (31.0-37.0); MCV 83.7 fL (80.0-100.0); Mean Platelet Volume 8.7; Microcytosis Slight; Monocytes # (A) 0.8 k/uL (0-1.0); Monocytes % (A) 5 %; Neutrophils # (A) 13.9 k/uL (1.3-7.7); Neutrophils % (A) 87 %; Platelet Count 210 k/uL (150-450); RBC 3.26 m/uL (3.80-5.40); WBC 16.1 k/uL (3.8-10.6)
[2023-12-12 05:20] LABS: ABG Base Excess 7.1 mmol/L; ABG HCO3 30 mmol/L (21-25); ABG PCO2 37 mmHg (35-45); ABG PH 7.52 (7.35-7.45); ABG PO2 105 mmHg (83-108); ABG TCO2 31 mmol/L (19-24); Allen Test Performed? Yes
[2023-12-12 05:36] LABS: African American GFR (CKD) >90 (>60 ml/min/1.73 sqM); Anion Gap -3 mmol/L; Blood Urea Nitrogen 23 mg/dL (7-17); Calcium 6.7 mg/dL (8.4-10.2); Carbon Dioxide 27 mmol/L (22-30); Chloride 112 mmol/L (98-107); Glucose 142 mg/dL (74-99); Non-African American GFR(CKD) >90 (>60 ml/min/1.73 sqM); Potassium 3.3 mmol/L (3.5-5.1); Sodium 136 mmol/L (137-145)
[2023-12-12 06:16] LABS: Glucose,Whole Blood 155 mg/dL (70-110)
[2023-12-12] MEDS: POTASSIUM BICARBONATE/CIT AC 20 MEQ TABLET.EFF NG-TUBE SCH (06:24)
--- NOTE | 2023-12-12 07:57 | XR ---
EXAMINATION TYPE: XR chest 1V portable DATE OF EXAM: 12/12/2023 COMPARISON: 12/11/2023 HISTORY: SOB, Follow Up FINDINGS: Indwelling tubes and catheters are unchanged. No change in bibasilar opacities. Stable appearance of the cardio-mediastinal structures at this time. Pleural effusion unchanged. IMPRESSION: 1. Stable portable chest. Clinical correlation and follow up until resolution is recommended.
[2023-12-12 11:55] LABS: Glucose,Whole Blood 154 mg/dL (70-110)
--- NOTE | 2023-12-12 12:16 | P.PN ---
Subjective Progress Note Date: 12/11/23 Principal diagnosis: Reason for follow-up is complicated diverticulitis with colocutaneous fistula Patient is a 73-year-old female who was brought into the ER at [facility] for the patient complaining of generalized weakness patient noticed to have sacral pressure ulcer and also complicate diverticulitis with a fistula to the left lower abdominal wall.Patient was taken to the OR on 12/06/2023 and this patient was status post exploratory laparotomy with sigmoid colectomy takedown of the colocutaneous fistula left inguinal hernia repair and peritoneal lavage. On today's visit that is 12/11/2023,the patient remains to be afebrile, patient is on the vent FiO2 stable at 45%, patient is requiring pressor support to maintain her blood pressure no significant purulent secretion through the ET or any other changes reported by the nursing staff Patient white count is 20.4 creatinine 0.51 abdominal aspirate culture growing Romelia Objective - Vital Signs Vital signs: Vital Signs Temp 99.7 F H 12/11/23 08:00 Pulse 90 12/11/23 11:00 Resp 27 H 12/11/23 11:00 BP 113/65 12/11/23 10:30 Pulse Ox 96 12/11/23 11:00 FiO2 45 12/11/23 11:07 Intake & Output 12/10/23 12/11/23 12/11/23 18:59 06:59 18:59 Intake Total 4610.923 1710.947 436.550 Output Total 981 768 8961 Balance 1265.939 1186.947 -783.450 Weight 104.9 kg 104.9 kg Intake: IV 1287 1100 100 0.9 110 200 100 Dextrose 5% in Water 1, 450 000 ml @ 150 mls/hr IV . Q7H40M [facility] with Sodium Bicarb (1 Meq/ml) 150 ml Rx#:[id number] Magnesium Sulfate-D5w Pmx 100 1 gm In Dextrose/Water 1 100ml.bag @ 100 mls/hr IVPB ONCE ONE Rx#: [id number] Meropenem 1 gm In Sodium 200 Chloride 0.9% 100 ml @ 33 .3 mls/hr IVPB Q8HR [facility] Rx#:[id number] Potassium Chloride 10 meq 300 In Water For Injection 1 100ml.bag @ 100 mls/hr IVPB Q1H [facility] Rx#: [id number] Vancomycin 1,500 mg In 500 500 Sodium Chloride 0.9% 500 ml 500 ml @ 167 mls/hr IVPB Q12HR [facility] Rx#: [id number] pressure bag 27 Intake, IV Titration 270.413 375.947 51.550 Amount Diltiazem 125 mg In 22.5 Sodium Chloride 0.9% 100 ml @ Titrate IV .Q24H [facility] Rx#:[id number] Heparin Sod,Pork in 0.45% 96.963 NaCl 25,000 unit In 0.45 % NaCl 1 250ml.bag @ 10. 661 UNITS/KG/HR 10 mls/hr IV .Q24H [facility] Rx#: [id number] Norepinephrine 8 mg In 83.794 41.08 38.569 Sodium Chloride 0.9% 250 ml @ 0.03 MCG/KG/MIN 5. 445 mls/hr IV .Q24H [facility] Rx#:[id number] Vasopressin 20 unit In 87.210 89.352 Sodium Chloride 0.9% 50 ml @ 0.03 UNITS/MIN 4.59 mls/hr IV .Q11H7M [facility] Rx# :[id number] propofoL 1,000 mg In 76.909 148.552 12.981 Empty Bag 1 bag @ 15 MCG/ KG/MIN 7.348 mls/hr IV . [id number] [facility] Rx#:[id number] Tube Feeding 299 523 265 Other 90 90 20 Output: Drainage 200 Abdomen 200 Urine 420 380 920 Stool 300 Other: Voiding Method Indwelling Catheter Indwelling Catheter Indwelling Catheter ABP, PAP, CO, CI - Last Documented Arterial Blood Pressure 102/47 - Exam GENERAL DESCRIPTION: An elderly female intubated on the vent RESPIRATORY SYSTEM: Unlabored breathing , decreased breath sounds at bases HEART: S1 S2 regular rate and rhythm , ABDOMEN: Soft , no tenderness EXTREMITIES: No edema feet - Labs CBC & Chem 7: 12/12/23 04:54 12/12/23 04:54 Labs: Abnormal Lab Results - Last 24 Hours (Table) 12/10/23 12/10/23 12/10/23 Range/Units 07:20 18:04 19:50 WBC (3.8-10.6) k/uL Hgb (11.4-16.0) gm/dL Hct (34.0-46.0) % RDW (11.5-15.5) % Neutrophils # (1.3-7.7) k/uL APTT (22.0-30.0) sec ABG pH (7.35-7.45) ABG HCO3 (21-25) mmol/L ABG Total CO2 (19-24) mmol/L ABG O2 Saturation (94-97) % Sodium 136 L (137-145) mmol/L Chloride 111 H (98-107) mmol/L Creatinine 0.51 L (0.52-1.04) mg/dL Glucose 149 H (74-99) mg/dL POC Glucose (mg/dL) 127 H (70-110) mg/dL Calcium 6.6 L (8.4-10.2) mg/dL Delta Bilirubin (0.0-0.2) mg/dL AST (14-36) U/L Total Protein (6.3-8.2) g/dL Albumin (3.5-5.0) g/dL Fluid Appearance Cloudy A (Clear) 12/10/23 12/11/23 12/11/23 Range/Units 23:51 00:17 03:53 WBC 20.4 H (3.8-10.6) k/uL Hgb 9.9 L (11.4-16.0) gm/dL Hct 31.9 L (34.0-46.0) % RDW 21.1 H (11.5-15.5) % Neutrophils # 18.4 H (1.3-7.7) k/uL APTT (22.0-30.0) sec ABG pH (7.35-7.45) ABG HCO3 (21-25) mmol/L ABG Total CO2 (19-24) mmol/L ABG O2 Saturation (94-97) % Sodium (137-145) mmol/L Chloride (98-107) mmol/L Creatinine (0.52-1.04) mg/dL Glucose (74-99) mg/dL POC Glucose (mg/dL) 148 H 191 H (70-110) mg/dL Calcium (8.4-10.2) mg/dL Delta Bilirubin (0.0-0.2) mg/dL AST (14-36) U/L Total Protein (6.3-8.2) g/dL Albumin (3.5-5.0) g/dL Fluid Appearance (Clear) 12/11/23 12/11/23 12/11/23 Range/Units 03:53 03:53 05:47 WBC (3.8-10.6) k/uL Hgb (11.4-16.0) gm/dL Hct (34.0-46.0) % RDW (11.5-15.5) % Neutrophils # (1.3-7.7) k/uL APTT 36.6 H (22.0-30.0) sec ABG pH 7.48 H (7.35-7.45) ABG HCO3 29 H (21-25) mmol/L ABG Total CO2 30 H (19-24) mmol/L ABG O2 Saturation 97.6 H (94-97) % Sodium 136 L (137-145) mmol/L Chloride 110 H (98-107) mmol/L Creatinine 0.51 L (0.52-1.04) mg/dL Glucose 135 H (74-99) mg/dL POC Glucose (mg/dL) (70-110) mg/dL Calcium 6.7 L (8.4-10.2) mg/dL Delta Bilirubin 0.4 H (0.0-0.2) mg/dL AST 13 L (14-36) U/L Total Protein 3.6 L (6.3-8.2) g/dL Albumin 1.6 L (3.5-5.0) g/dL Fluid Appearance (Clear) 12/11/23 12/11/23 12/11/23 Range/Units 05:48 10:50 12:06 WBC (3.8-10.6) k/uL Hgb (11.4-16.0) gm/dL Hct (34.0-46.0) % RDW (11.5-15.5) % Neutrophils # (1.3-7.7) k/uL APTT 50.2 H (22.0-30.0) sec ABG pH (7.35-7.45) ABG HCO3 (21-25) mmol/L ABG Total CO2 (19-24) mmol/L ABG O2 Saturation (94-97) % Sodium (137-145) mmol/L Chloride (98-107) mmol/L Creatinine (0.52-1.04) mg/dL Glucose (74-99) mg/dL POC Glucose (mg/dL) 154 H 169 H (70-110) mg/dL Calcium (8.4-10.2) mg/dL Delta Bilirubin (0.0-0.2) mg/dL AST (14-36) U/L Total Protein (6.3-8.2) g/dL Albumin (3.5-5.0) g/dL Fluid Appearance (Clear) Microbiology - Last 24 Hours (Table) 12/10/23 07:20 Gram Stain - Preliminary Bronchoalviolar Lavage - Left Bronchial Washings Culture - Preliminary 12/09/23 16:45 Gram Stain - Preliminary Aspirate Body Fluid Culture - Preliminary Romelia albicans 12/08/23 08:46 Blood Culture - Preliminary Blood 12/07/23 11:32 Gram Stain - Final Sputum Sputum Culture - Final Romelia albicans Assessment and Plan (1) Diverticulitis of intestine, part unspecified, without perforation or abscess without bleeding Current Visit: Yes Status: Acute Code(s): K57.92 - DVTRCLI OF INTEST, PART UNSP, W/O PERF OR ABSCESS W/O BLEED SNOMED Code(s): 812708240 (2) Leukocytosis Current Visit: Yes Status: Acute Code(s): D72.829 - ELEVATED WHITE BLOOD CELL COUNT, UNSPECIFIED SNOMED Code(s): 709976046 (3) Sepsis Current Visit: Yes Status: Acute Code(s): A41.9 - SEPSIS, UNSPECIFIED ORGANISM SNOMED Code(s): 17834772 (4) Gram-negative bacteremia Current Visit: Yes Status: Acute Code(s): R78.81 - BACTEREMIA SNOMED Code(s): 614118809959 Plan: 1patient with complicated diverticulitis with evidence of fistulous communication to the skin left lower quadrant area and concern for possible extension to the bladder, will need to cover for the polymicrobial jessie a ssociated with such condition including enteric gram-negative both aerobes and anaerobes 2-patient also have a pressure ulcer but no significant surrounding cellulitis, wound care has been consulted continue local wound care per them 3gram-negative 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 with ID sensitivities pending, repeat blood culture has been negative so far 3-patient is status post extensive surgery including 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 5patient sputum culture grew Romelia patient is status post bronchoscopy with culture which are currently pending abdominal cultures growing Romelia as well we will continue patient on meropenem and Eraxis and has been unable to use Diflucan because of drug interaction and discontinue vancomycin Dictation was produced using [employer] dictation software. please excuse any grammatical, word or spelling errors.
--- NOTE | 2023-12-12 12:17 | P.PN ---
Subjective Progress Note Date: 12/12/23 Principal diagnosis: Reason for follow-up is complicated diverticulitis with colocutaneous fistula Patient is a 73-year-old female who was brought into the ER at [facility] for the patient complaining of generalized weakness patient noticed to have sacral pressure ulcer and also complicate diverticulitis with a fistula to the left lower abdominal wall.Patient was taken to the OR on 12/06/2023 and this patient was status post exploratory laparotomy with sigmoid colectomy takedown of the colocutaneous fistula left inguinal hernia repair and peritoneal lavage. On today's visit that is 12/12/2023, the patient continues to be afebrile, the patient is intubated on the vent currently on 45% FiO2 no significant purulent secretions through the ET patient is requiring pressor support but they are slowly weaning off and the patient is slowly waking up and apparently responded to the nursing staff and pool nurse. Patient white count is down to 16.1, creatinine 0.48 bronchial lavage sputum culture growing Romelia and abdominal respiratory is Romelia albicans Objective - Vital Signs Vital signs: Vital Signs Temp 97.6 F 12/12/23 12:00 Pulse 65 12/12/23 12:00 Resp 22 12/12/23 12:00 BP 119/51 12/12/23 12:00 Pulse Ox 98 12/12/23 12:00 FiO2 45 12/12/23 12:00 Intake & Output 12/11/23 12/12/23 12/12/23 18:59 06:59 18:59 Intake Total 3948.435 7005.713 668.083 Output Total 2845 1165 180 Balance -1319.222 109.713 488.083 Weight 98 kg Intake: IV 343 273 188 0.9 240 240 120 Meropenem 1 gm In Sodium 100 50 Chloride 0.9% 100 ml @ 33 .3 mls/hr IVPB Q8HR [facility] Rx#:[id number] pressure bag 3 33 18 Intake, IV Titration 436.778 298.713 102.083 Amount Anidulafungin 100 mg In 260 Sodium Chloride 0.9% 100 ml @ 84 mls/hr IVPB DAILY @1600 [facility] Rx#:[id number] Diltiazem 125 mg In 5.833 49.667 Sodium Chloride 0.9% 100 ml @ Titrate IV .Q24H [facility] Rx#:[id number] Heparin Sod,Pork in 0.45% 147.429 26.342 NaCl 25,000 unit In 0.45 % NaCl 1 250ml.bag @ 10. 661 UNITS/KG/HR 10 mls/hr IV .Q24H [facility] Rx#: [id number] Norepinephrine 8 mg In 106.964 56.023 14.184 Sodium Chloride 0.9% 250 ml @ 0.03 MCG/KG/MIN 5. 445 mls/hr IV .Q24H [facility] Rx#:[id number] Vasopressin 20 unit In 51 45.594 61.557 Sodium Chloride 0.9% 50 ml @ 0.03 UNITS/MIN 4.59 mls/hr IV .Q11H7M [facility] Rx# :[id number] propofoL 1,000 mg In 12.981 Empty Bag 1 bag @ 15 MCG/ KG/MIN 7.348 mls/hr IV . [id number] [facility] Rx#:[id number] Tube Feeding 636 583 318 Other 110 120 60 Output: Urine 2345 1015 180 Stool 500 150 Other: Voiding Method Indwelling Catheter Indwelling Catheter Indwelling Catheter ABP, PAP, CO, CI - Last Documented Arterial Blood Pressure 111/40 - Exam GENERAL DESCRIPTION: An elderly female intubated on the vent RESPIRATORY SYSTEM: Unlabored breathing , decreased breath sounds at bases HEART: S1 S2 regular rate and rhythm , ABDOMEN: Soft , no tenderness EXTREMITIES: No edema feet - Labs CBC & Chem 7: 12/12/23 04:54 12/12/23 04:54 Labs: Abnormal Lab Results - Last 24 Hours (Table) 12/11/23 12/12/23 12/12/23 Range/Units 17:09 01:21 04:54 WBC 16.1 H (3.8-10.6) k/uL RBC 3.26 L (3.80-5.40) m/uL Hgb 8.6 L (11.4-16.0) gm/dL Hct 27.3 L (34.0-46.0) % RDW 21.0 H (11.5-15.5) % Neutrophils # 13.9 H (1.3-7.7) k/uL APTT (22.0-30.0) sec ABG pH (7.35-7.45) ABG HCO3 (21-25) mmol/L ABG Total CO2 (19-24) mmol/L ABG O2 Saturation (94-97) % Sodium (137-145) mmol/L Potassium (3.5-5.1) mmol/L Chloride (98-107) mmol/L BUN (7-17) mg/dL Creatinine (0.52-1.04) mg/dL Glucose (74-99) mg/dL POC Glucose (mg/dL) 158 H 140 H (70-110) mg/dL Calcium (8.4-10.2) mg/dL 12/12/23 12/12/23 12/12/23 Range/Units 04:54 05:20 06:14 WBC (3.8-10.6) k/uL RBC (3.80-5.40) m/uL Hgb (11.4-16.0) gm/dL Hct (34.0-46.0) % RDW (11.5-15.5) % Neutrophils # (1.3-7.7) k/uL APTT (22.0-30.0) sec ABG pH 7.52 H (7.35-7.45) ABG HCO3 30 H (21-25) mmol/L ABG Total CO2 31 H (19-24) mmol/L ABG O2 Saturation 98.0 H (94-97) % Sodium 136 L (137-145) mmol/L Potassium 3.3 L (3.5-5.1) mmol/L Chloride 112 H (98-107) mmol/L BUN 23 H (7-17) mg/dL Creatinine 0.48 L (0.52-1.04) mg/dL Glucose 142 H (74-99) mg/dL POC Glucose (mg/dL) 155 H (70-110) mg/dL Calcium 6.7 L (8.4-10.2) mg/dL 12/12/23 12/12/23 Range/Units 06:23 11:53 WBC (3.8-10.6) k/uL RBC (3.80-5.40) m/uL Hgb (11.4-16.0) gm/dL Hct (34.0-46.0) % RDW (11.5-15.5) % Neutrophils # (1.3-7.7) k/uL APTT 36.3 H (22.0-30.0) sec ABG pH (7.35-7.45) ABG HCO3 (21-25) mmol/L ABG Total CO2 (19-24) mmol/L ABG O2 Saturation (94-97) % Sodium (137-145) mmol/L Potassium (3.5-5.1) mmol/L Chloride (98-107) mmol/L BUN (7-17) mg/dL Creatinine (0.52-1.04) mg/dL Glucose (74-99) mg/dL POC Glucose (mg/dL) 154 H (70-110) mg/dL Calcium (8.4-10.2) mg/dL Microbiology - Last 24 Hours (Table) 12/10/23 07:20 Gram Stain - Final Bronchoalviolar Lavage - Left Bronchial Washings Culture - Final Romelia albicans 12/10/23 07:20 Acid Fast Bacilli Smear - Preliminary Bronchoalviolar Lavage - Left 12/08/23 08:46 Blood Culture - Preliminary Blood Assessment and Plan (1) Diverticulitis of intestine, part unspecified, without perforation or abscess without bleeding Current Visit: Yes Status: Acute Code(s): K57.92 - DVTRCLI OF INTEST, PART UNSP, W/O PERF OR ABSCESS W/O BLEED SNOMED Code(s): 674170470 (2) Leukocytosis Current Visit: Yes Status: Acute Code(s): D72.829 - ELEVATED WHITE BLOOD CELL COUNT, UNSPECIFIED SNOMED Code(s): 768821574 (3) Sepsis Current Visit: Yes Status: Acute Code(s): A41.9 - SEPSIS, UNSPECIFIED ORGANISM SNOMED Code(s): 56536362 (4) Gram-negative bacteremia Current Visit: Yes Status: Acute Code(s): R78.81 - BACTEREMIA SNOMED Code( s): 817759883442 Plan: 1patient with complicated diverticulitis with evidence of fistulous communication to the skin left lower quadrant area and concern for possible extension to the bladder, will need to cover for the polymicrobial jessie associated with such condition including enteric gram-negative both aerobes and anaerobes 2-patient also have a pressure ulcer but no significant surrounding cellulitis, wound care has been consulted continue local wound care per them 3gram-negative 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 with ID sensitivities pending , repeat blood culture has been negative so far 3-patient is status post extensive surgery including 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 5patient sputum culture grew Romelia bronchoscopy culture also grew Romelia as well as abdominal culture growing Romelia albicans patient is currently covered with meropenem pending sensitivities of the gram-negative in the blood, Eraxis was added yesterday the patient white count is trending down and we will monitor closely Dictation was produced using [employer] dictation software. please excuse any grammatical, word or spelling errors.
--- NOTE | 2023-12-12 13:08 | P.PN ---
Subjective Progress Note Date: 12/12/23 Principal diagnosis: Abdominal sepsis, diverticulitis, gram-negative bacteremia This is a 74-year-old female patient who was brought into the intensive care unit after an extensive abdominal surgery. The patient underwent exploratory laparotomy and sigmoid colectomy and diverging colostomy. The patient was emergently taken to the operating room this afternoon as the patient was becoming hypotensive and she had developed persistent leukocytosis intermittent fevers consistent with sepsis and septic shock. The patient was also becoming hypotensive despite being resuscitated with IV fluids and the patient preoperatively received a total of 3 L of IV fluids. An emergent surgical exploration was indicated. 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 At this point in time, the patient is sedated and the patient is currently on propofol. She is intubated on mechanical ventilator and she is on assist- control mode at a rate of 12, tidal volume of 400, FiO2 of 100% and a PEEP of 5. Chest x-ray shows a right IJ triple-lumen catheter. ET tube is in good location. No airspace disease or consolidation. The blood gases showed a pH of 7.22 with a pCO2 of 51 and pO2 of 255. The patient is currently on no pressors and urine output is quite diminished in the order of 10 to 20 cc since arrival from the operating room. The patient is on IV cefepime and Flagyl. Received a total of 2 unit PRBC intraop 12/07/2023, I am seeing the patient for a follow-up in the intensive care unit. The patient is currently postop day #1. The patient remains intubated on the mechanical ventilator. This morning, the patient is on propofol which is running at 30 mcg/kg/min. She was resuscitated with IV fluids. She was maintained on normal saline at rate of 150 cc an hour and norepinephrine was also added overnight and currently norepinephrine is running at 0.07 mcg/kg/min. Her urine output is in the order of 10 to 20 cc an hour. Overall fluid balance over the past 24 hours has been +3.6 L. The patient remains on a combination of cefepime and Flagyl. The blood work from today shows a WBC count of 37.4, hemoglobin 10.7 and platelet count of 499. BUN is at 15 with a creatinine of 0.8. Sodium is at 143 from yesterday. Repeat electrolytes are still pending for now. Meanwhile, the patient remains intubated on mechanical ventilator. This morning, she is on assist-control mode at rate of 24, tidal volume of 400, FiO2 is at 55% with a PEEP of 5. The blood gas shows a pH of 7.38 with a pCO2 of 31 and pO2 of 119. Review of the chest x-ray from this morning shows adequate positioning of the orotracheal tube. This may need to be pushed in by 1 cm. The patient has a small atelectasis/left-sided pleural effusion. Otherwise, the right lung is essentially clear at this point in time. Antibiotic coverage includes a combination of cefepime and Flagyl. The patient will need Dilaudid for pain control. She is on heparin subcu for DVT prophy laxis. She is resting comfortably in bed. No other significant events overnight. Currently she is afebrile. The wound VAC is in place. Colostomy site is not fully functional at this point in time. Abdomen is soft. 12/08/2023, the patient remains intubated on mechanical ventilator and she is in the intensive care unit postop day #2. The patient remains on a mechanical ventilator. She is currently on assist-control mode with rate of 24, tidal volume of 400, FiO2 of 50% with a PEEP of 5. The blood gases from this morning showed a pH of 7.28 with a pCO2 of 32 and pO2 of 105. The chest x-ray was reviewed and shows evidence of left basilar effusion/atelectasis. Orotracheal tube is in good location. The patient is triple-lumen catheter in her right IJ. Unfortunately, at around 3 AM this morning, the patient went into A-fib RVR and the patient became profoundly hypotensive. The patient progressively required higher dose of norepinephrine and currently norepinephrine is running at 0.2 mcg/kg/min and her mean arterial pressure is around 64. At the same time, the patient received treatment for her new onset atrial fibrillation. She was given an amiodarone bolus and currently she is on amiodarone at 0.5 mg/min. Based on her underlying hypotension. The patient was thought to hemodynamically unstable with A-fib RVR. The patient received cardioversion on 3 separate occasions using 120 J, 150 J and 200 J. Those attempts failed and the patient remained in atrial fibrillation. Her current heart rate is running at around 150 beats a minute, irregular. Urine output has dropped and the patient is producing only 10 cc an hour. At the same time, the patient's white cell count is up to 33.3 with a hemoglobin 12.1 and platelet count of 412. NG tube is in place. Output is minimal. Abdomen remains soft. The wound VAC is still in place. There is some liquidy stool material in the colostomy bag. No abdominal distention. The patient has been developing progressive edema and upper extremities in the left lower extremity. 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 Rest of the electrolytes show a sodium level of 143, serum bicarb is down to 12, anion gap is at 6, BUN is at 17 with a creatinine of 0.8. Magnesium level is at 1.9 with a calcium level of 7.9. The patient remains on IV cefepime and Flagyl. Urine culture from 12/04/2023 was positive for Klebsiella pneumoniae. She is currently afebrile. Propofol is running at 35 mcg/kg/min. The patient has been adequately sedated for now. Patient was reevaluated today on 12/09/2023, remains intubated and mechanically ventilated. On assist-control rate of 24 tidal volume 400 FiO2 50% and PEEP of 5. ABG showed a pO2 of 128 pCO2 35 pH 7.39. His FiO2 was cut down to 40% instead of 50%. Patient remained on multiple drips including norepinephrine, 0.04 mcg/kg/min, propofol at 35 mcg/kg/min, vasopressin at 0.03 units/min, D5W with 3 A of bicarb running at 150 cc/h. Patient is receiving vancomycin and Merrem. Patient has a left IJ triple-lumen catheter and left radial arterial line. Urine is positive Klebsiella, blood cultures were noted to be also positive for gram-negative bacilli. Most likely Klebsiella. Patient is on Merrem and she is on vancomycin patient is now postoperative day #3. Patient received 2 units of packed RBCs, since admission, hemoglobin now is 9.8, hemoglobin went as low as 7.4 on 12/04 labs today showed PTT of 57.4, basic metabolic profile is normal except for low potassium of 3.0 bicarb is 16, renal profile is normal WBC count is 28.5 hemoglobin is 9.8 urine cultures are positive for Klebsiella pneumoniae. Nutrition hicks the patient is receiving vit al HP 10 cc/h. Patient remains in atrial fibrillation, rate seems to be reasonably controlled Patient was reevaluated today on 12/10/2023, remains in the ICU, intubated and mechanically ventilated. Earlier this morning I was made aware of the patient's chest x-ray showing complete collapse of the left lung, and tracheal deviation to the ipsilateral side. This was clearly consistent with mucous plugging involving the left mainstem bronchus. Hence the patient underwent bronchoscopy, suctioning of the mucous plugs, and bronchoalveolar lavage of the left upper lobe lingula and left lower lobe. Please refer to the full operative report regarding this procedure. Patient remains intubated, mechanically ventilated, she is on assist-control rate of 24 tidal volume 400 FiO2 is now 50% PEEP of 10 and I cut it down to 8. Patient remains on multiple drips including norepinephrine at 0.06 mcg/kg/min vasopressin at 0.04 units/h, bicarb drip which I have discontinued today, Cardizem drip at 5 mg/h. Patient is also on heparin drip, propofol at 15 mcg/kg/min. Antibiotics hicks remains on Merrem for Klebsiella infection involving urine and blood. Chest x-ray as noted above, patient had complete opacification of the left lung, however after bronchoscopy and BAL significant improvement was noted and aeration of left lung significantly improved. ABG this morning on 40% showed a pO2 of 55 pCO2 48 and pH of 7.39 BBC count is 19.7, improving hemoglobin is 9.1. Platelets 253. ASIC metabolic profile is normal and renal profile is normal Patient was placed today on 12/11/2023, remains in the ICU, intubated and mechanically ventilated, sedated. On assist-control rate of 24 tidal volume 400 FiO2 50% and PEEP of 8 patient is requiring hemodynamic support with vasopressin 0.04 units, norepinephrine at 0.03 mcg/kg/min, patient is nutritionally supported with vital HP at 53 mL/h. ABG showed a pO2 of 96 pCO2 39 pH of 7.48. Patient remains on vancomycin and Merrem, urine output is about 40 cc/h hence I recommended Lasix to be given today 40 mg IV push x 1. Patient has a functioning ostomy, and she continues to have a wound VAC in place. CODE STATUS has been changed to DNR, yesterday, the patient underwent a bronchoscopy for complete opacification of the left lung, cultures from the BAL are pending, on today's chest x-ray there is minimal atelectasis in the left midlung, left lung remains relatively fully expanded Patient was reevaluated today on 12/12/2023, remains in the ICU intubated and mechanically ventilated. Patient is still requiring pressors, still on assist- control rate of 24 tidal volume 400 FiO2 45% PEEP is 8 and I cut it down to 6 today. ABG showed a pO2 of 105 pCO2 37 pH of 7.52 patient has been off propofol for the last 24 hours, still receiving heparin, she is on vasopressin at 0.02, and on norepinephrine at 0.01 mcg/kg/min. Antibiotics hicks, patient remains on Merrem and Eraxis. Patient is arousable, opens her eyes, extremely weak, however she is able to squeeze hands only. Continues to have leukocytosis with WBC count of 16.1 hemoglobin is 8.6, basic metabolic profile is normal. Nutrition hicks, patient remains on vital HP at 53/53 cc/h. Plan today on this patient is to continue patient off any sedation, and hopefully give the patient a trial of pressure support and CPAP, I do not believe the patient is ready to be extubated, but will start at least at times of weaning trials with pressure support mode of mechanical ventilation Objective - Vital Signs Vital signs: Vital Signs Temp 97.6 F 12/12/23 12:00 Pulse 65 12/12/23 12:00 Resp 22 12/12/23 12:00 BP 119/51 12/12/23 12:00 Pulse Ox 98 12/12/23 12:00 FiO2 45 12/12/23 12:00 Intake & Output 12/11/23 12/12/23 12/12/23 18:59 06:59 18:59 Intake Total 1701.608 6021.713 678.028 Output Total 2845 1165 180 Balance -1319.222 109.713 498.028 Weight 98 kg Intake: IV 343 273 188 0.9 240 240 120 Meropenem 1 gm In Sodium 100 50 Chloride 0.9% 100 ml @ 33 .3 mls/hr IVPB Q8HR [facility] Rx#:[id number] pressure bag 3 33 18 Intake, IV Titration 436.778 298.713 112.028 Amount Anidulafungin 100 mg In 260 Sodium Chloride 0.9% 100 ml @ 84 mls/hr IVPB DAILY @1600 [facility] Rx#:[id number] Diltiazem 125 mg In 5.833 49.667 Sodium Chloride 0.9% 100 ml @ Titrate IV .Q24H [facility] Rx#:[id number] Heparin Sod,Pork in 0.45% 147.429 26.342 NaCl 25,000 unit In 0.45 % NaCl 1 250ml.bag @ 10. 661 UNITS/KG/HR 10 mls/hr IV .Q24H [facility] Rx#: [id number] Norepinephrine 8 mg In 106.964 56.023 14.184 Sodium Chloride 0.9% 250 ml @ 0.03 MCG/KG/MIN 5. 445 mls/hr IV .Q24H [facility] Rx#:[id number] Vasopressin 20 unit In 51 45.594 71.502 Sodium Chloride 0.9% 50 ml @ 0.03 UNITS/MIN 4.59 mls/hr IV .Q11H7M [facility] Rx# :[id number] propofoL 1,000 mg In 12.981 Empty Bag 1 bag @ 15 MCG/ KG/MIN 7.348 mls/hr IV . [id number] [facility] Rx#:[id number] Tube Feeding 636 583 318 Other 110 120 60 Output: Urine 2345 1015 180 Stool 500 150 Other: Voiding Method Indwelling Catheter Indwelling Catheter Indwelling Catheter ABP, PAP, CO, CI - Last Documented Arterial Blood Pressure 111/40 - Exam General: Reveals 71-year-old female intubated mechanically ventilated off sedation, awake, follows very simple instructions like squeezing hands. Skin: No rashes. Eye: Pupils are equal, round and reactive to light, extra-ocular movements are intact; there is normal conjunctiva bilaterally. Ears, nose, mouth and throat: There are moist mucous membranes and no oral lesions. Endotracheal tube is intact. Neck: The neck is supple, there is no tenderness or JVD. Cardiovascular: Distant S1-S2, no S3 gallop, no murmur. Respiratory: Good breath sound bilaterally no crackles rhonchi or wheezes Abdomen: Bowel sounds are hypoactive/absent. There is a mid abdominal wound and the surgical scar is clean and the wound VAC noted. Colostomy seems to be functional Musculoskeletal: Right above-knee amputation is noted otherwise unremarkable. Neurological: Arousable, follows instructions, but seems to be extremely and profoundly weak Psychiatric: Could not assess - Labs CBC & Chem 7: 12/12/23 04:54 12/12/23 04:54 Labs: Abnormal Lab Results - Last 24 Hours (Table) 12/11/23 12/12/23 12/12/23 Range/Units 17:09 01:21 04:54 WBC 16.1 H (3.8-10.6) k/uL RBC 3.26 L (3.80-5.40) m/uL Hgb 8.6 L (11.4-16.0) gm/dL Hct 27.3 L (34.0-46.0) % RDW 21.0 H (11.5-15.5) % Neutrophils # 13.9 H (1.3-7.7) k/uL APTT (22.0-30.0) sec ABG pH (7.35-7.45) ABG HCO3 (21-25) mmol/L ABG Total CO2 (19-24) mmol/L ABG O2 Saturation (94-97) % Sodium (137-145) mmol/L Potassium (3.5-5.1) mmol/L Chloride (98-107) mmol/L BUN (7-17) mg/dL Creatinine (0.52-1.04) mg/dL Glucose (74-99) mg/dL POC Glucose (mg/dL) 158 H 140 H (70-110) mg/dL Calcium (8.4-10.2) mg/dL 12/12/23 12/12/23 12/12/23 Range/Units 04:54 05:20 06:14 WBC (3.8-10.6) k/uL RBC (3.80-5.40) m/uL Hgb (11.4-16.0) gm/dL Hct (34.0-46.0) % RDW (11.5-15.5) % Neutrophils # (1.3-7.7) k/uL APTT (22.0-30.0) sec ABG pH 7.52 H (7.35-7.45) ABG HCO3 30 H (21-25) mmol/L ABG Total CO2 31 H (19-24) mmol/L ABG O2 Saturation 98.0 H (94-97) % Sodium 136 L (137-145) mmol/L Potassium 3.3 L (3.5-5.1) mmol/L Chloride 112 H (98-107) mmol/L BUN 23 H (7-17) mg/dL Creatinine 0.48 L (0.52-1.04) mg/dL Glucose 142 H (74-99) mg/dL POC Glucose (mg/dL) 155 H (70-110) mg/dL Calcium 6.7 L (8.4-10.2) mg/dL 12/12/23 12/12/23 Range/Units 06:23 11:53 WBC (3.8-10.6) k/uL RBC (3.80-5.40) m/uL Hgb (11.4-16.0) gm/dL Hct (34.0-46.0) % RDW (11.5-15.5) % Neutrophils # (1.3-7.7) k/uL APTT 36.3 H (22.0-30.0) sec ABG pH (7.35-7.45) ABG HCO3 (21-25) mmol/L ABG Total CO2 (19-24) mmol/L ABG O2 Saturation (94-97) % Sodium (137-145) mmol/L Potassium (3.5-5.1) mmol/L Chloride (98-107) mmol/L BUN (7-17) mg/dL Creatinine (0.52-1.04) mg/dL Glucose (74-99) mg/dL POC Glucose (mg/dL) 154 H (70-110) mg/dL Calcium (8.4-10.2) mg/dL Microbiology - Last 24 Hours (Table) 12/10/23 07:20 Gram Stain - Final Bronchoalviolar Lavage - Left Bronchial Washings Culture - Final Romelia albicans 12/10/23 07:20 Acid Fast Bacilli Smear - Preliminary Bronchoalviolar Lavage - Left 12/08/23 08:46 Blood Culture - Preliminary Blood Assessment and Plan Assessment: Impression: Status post exploratory laparotomy colectomy and diverting colostomy and debridement of cutaneous fistula postoperative day #6 Abdominal sepsis and septic shock New onset atrial fibrillation with RVR Gram-negative bacteremia Klebsiella pneumonia urinary tract infection Leukocytosis secondary to above, improving. 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 Merrem and Eraxis. Bronchial washings came back positive for Romelia albicans Continue nutritional support, patient is on enteral feeding, up to goal. 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 Will continue to hold sedation. Patient remains critically ill. Critical care time is over 30 minutes Time with Patient: Greater than 30
--- NOTE | 2023-12-12 13:58 | P.PN ---
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 The surgery was complicated by cardiogenic shock. The patient currently is on 2 vasopressors including vasopressin's as well as norepinephrine. We initially seen the patient and signed off on her before. We saw her for preop cardiac assessment for noncardiac surgery. We requested to see the patient again because she developed atrial fibrillation with RVR. Her pressure continues to be low. She was started on amiodarone IV which I would agree on. She also was started on heparin IV which I would agree on. The echo during the hospital stay showed mildly impaired LV function with EF around 45%. Another echo was requested and performed and we are in process to have the results. The examination is remarkable for the patient being intubated on mechanical ventilation currently on 2 vasopressors as well as regular rate and rhythm with a distant heart sounds and diminished breathing sounds bilaterally Progress note 12/11/23 BP 104/45, heart rate 85 bpm. Patient intermittently goes into atrial fibrillation on and off but does not sustain in atrial fibrillation. Currently patient is in sinus rhythm. Hemoglobin 9.9, WBC 20, creatinine 0.5 Patient is still on norepinephrine and vasopressin. Will try to wean her off norepinephrine today. Patient has failed weaning trial today. Patient is no code 12/12/2023 Patient is on very low pressors norepinephrine 0.02, vasopressin 0.02. Patient has generalized swelling and was in positive fluid balance. She has received 1 dose of IV Lasix 40 mg yesterday. Blood pressure 113/40, pulse 66 bpm. Last night patient did go into atrial fibrillation with RVR for which she was placed on Cardizem drip. Since 10 PM yesterday it has been discontinued. Patient is currently getting sedation vacation and spontaneous breathing trial. No plans for extubation today as per pulmonary team Hemoglobin 8.6, creatinine 0.4, Metabolic alkalosis, ABG 7.5, bicarb 27, anion gap is -3, Impression S/p exploratory laparotomy, colectomy, diverting colostomy, debridement of cutaneous fistula New onset atrial fibrillation, currently sinus rhythm. Having paroxysms on and off Septic shock with gram-negative bacteremia Klebsiella pneumonia and urinary tract infection Ventilator dependent respiratory failure Metabolic alkalosis with negative anion gap Echocardiogram showed EF of 50%, mild to moderate MR, Plan Reduce amiodarone to 200 mg twice daily due to low resting heart rate. Will continue amiodarone as patient still has paroxysms of atrial fibrillation which compromises her hemodynamics. Wean down vasopressin. Continue norepinephrine, continue to wean slowly Discontinue Cardizem. Only do Cardizem if heart rate is sustaining above 130 to 140 bpm. Metabolic alkalosis, vent management, sepsis management as per primary team and ICU team Consider using IV Lasix as needed for maintaining fluid balance. Currently appears clinically volume overloaded Objective - Vital Signs Vital signs: Vital Signs Temp 97.6 F 12/12/23 12:00 Pulse 63 12/12/23 13:00 Resp 17 12/12/23 13:00 BP 114/49 12/12/23 13:00 Pulse Ox 100 12/12/23 13:00 FiO2 45 12/12/23 12:00 Intake & Output 12/11/23 12/12/23 12/12/23 18:59 06:59 18:59 Intake Total 4840.777 9634.713 756.297 Output Total 2845 1165 210 Balance -1319.222 109.713 546.297 Weight 98 kg Intake: IV 343 273 211 0.9 240 240 140 Meropenem 1 gm In Sodium 100 50 Chloride 0.9% 100 ml @ 33 .3 mls/hr IVPB Q8HR [facility] Rx#:[id number] pressure bag 3 33 21 Intake, IV Titration 436.778 298.713 114.297 Amount Anidulafungin 100 mg In 260 Sodium Chloride 0.9% 100 ml @ 84 mls/hr IVPB DAILY @1600 [facility] Rx#:[id number] Diltiazem 125 mg In 5.833 49.667 Sodium Chloride 0.9% 100 ml @ Titrate IV .Q24H [facility] Rx#:[id number] Heparin Sod,Pork in 0.45% 147.429 26.342 NaCl 25,000 unit In 0.45 % NaCl 1 250ml.bag @ 10. 661 UNITS/KG/HR 10 mls/hr IV .Q24H [facility] Rx#: [id number] Norepinephrine 8 mg In 106.964 56.023 16.453 Sodium Chloride 0.9% 250 ml @ 0.03 MCG/KG/MIN 5. 445 mls/hr IV .Q24H [facility] Rx#:[id number] Vasopressin 20 unit In 51 45.594 71.502 Sodium Chloride 0.9% 50 ml @ 0.03 UNITS/MIN 4.59 mls/hr IV .Q11H7M [facility] Rx# :[id number] propofoL 1,000 mg In 12.981 Empty Bag 1 bag @ 15 MCG/ KG/MIN 7.348 mls/hr IV . [id number] [facility] Rx#:[id number] Tube Feeding 636 583 371 Other 110 120 60 Output: Urine 2345 1015 210 Stool 500 150 Other: Voiding Method Indwelling Catheter Indwelling Catheter Indwelling Catheter ABP, PAP, CO, CI - Last Documented Arterial Blood Pressure 98/34 - Labs CBC & Chem 7: 12/12/23 04:54 12/12/23 04:54 Labs: Abnormal Lab Results - Last 24 Hours (Table) 12/11/23 12/12/23 12/12/23 Range/Units 17:09 01:21 04:54 WBC 16.1 H (3.8-10.6) k/uL RBC 3.26 L (3.80-5.40) m/uL Hgb 8.6 L (11.4-16.0) gm/dL Hct 27.3 L (34.0-46.0) % RDW 21.0 H (11.5-15.5) % Neutrophils # 13.9 H (1.3-7.7) k/uL APTT (22.0-30.0) sec ABG pH (7.35-7.45) ABG HCO3 (21-25) mmol/L ABG Total CO2 (19-24) mmol/L ABG O2 Saturation (94-97) % Sodium (137-145) mmol/L Potassium (3.5-5.1) mmol/L Chloride (98-107) mmol/L BUN (7-17) mg/dL Creatinine (0.52-1.04) mg/dL Glucose (74-99) mg/dL POC Glucose (mg/dL) 158 H 140 H (70-110) mg/dL Calcium (8.4-10.2) mg/dL 12/12/23 12/12/23 12/12/23 Range/Units 04:54 05:20 06:14 WBC (3.8-10.6) k/uL RBC (3.80-5.40) m/uL Hgb (11.4-16.0) gm/dL Hct (34.0-46.0) % RDW (11.5-15.5) % Neutrophils # (1.3-7.7) k/uL APTT (22.0-30.0) sec ABG pH 7.52 H (7.35-7.45) ABG HCO3 30 H (21-25) mmol/L ABG Total CO2 31 H (19-24) mmol/L ABG O2 Saturation 98.0 H (94-97) % Sodium 136 L (137-145) mmol/L Potassium 3.3 L (3.5-5.1) mmol/L Chloride 112 H (98-107) mmol/L BUN 23 H (7-17) mg/dL Creatinine 0.48 L (0.52-1.04) mg/dL Glucose 142 H (74-99) mg/dL POC Glucose (mg/dL) 155 H (70-110) mg/dL Calcium 6.7 L (8.4-10.2) mg/dL 12/12/23 12/12/23 Range/Units 06:23 11:53 WBC (3.8-10.6) k/uL RBC (3.80-5.40) m/uL Hgb (11.4-16.0) gm/dL Hct (34.0-46.0) % RDW (11.5-15.5) % Neutrophils # (1.3-7.7) k/uL APTT 36.3 H (22.0-30.0) sec ABG pH (7.35-7.45) ABG HCO3 (21-25) mmol/L ABG Total CO2 (19-24) mmol/L ABG O2 Saturation (94-97) % Sodium (137-145) mmol/L Potassium (3.5-5.1) mmol/L Chloride (98-107) mmol/L BUN (7-17) mg/dL Creatinine (0.52-1.04) mg/dL Glucose (74-99) mg/dL POC Glucose (mg/dL) 154 H (70-110) mg/dL Calcium (8.4-10.2) mg/dL Microbiology - Last 24 Hours (Table) 12/10/23 07:20 Gram Stain - Final Bronchoalviolar Lavage - Left Bronchial Washings Culture - Final Romelia albicans 12/10/23 07:20 Acid Fast Bacilli Smear - Preliminary Bronchoalviolar Lavage - Left 12/08/23 08:46 Blood Culture - Preliminary Blood
--- NOTE | 2023-12-12 14:21 | P.PN ---
Subjective Progress Note Date: 12/12/23 CHIEF COMPLAINT: Perforated diverticular disease with fistulization to the skin HISTORY OF PRESENT ILLNESS: The patient is a 68-[id number]-year-old female status post exploratory laparotomy, Magaña's procedure for colocutaneous fistula and septic shock. Patient remains in the ICU intubated and on mechanical ventilation. Infectious disease did add antifungal to her antibiotic regimen. White count did decrease from 20-16. She is on tube feeds for nutrition support. She still requiring the Levophed and vasopressin. She is on IV heparin. She is undergoing a CPAP trial today. PHYSICAL EXAM: VITAL SIGNS: Reviewed GENERAL: no acute distress. HEENT: No sclera icterus. Extraocular movements grossly intact. Moist buccal mucosa. Head is atraumatic, normocephalic. Hears conversational speech. No nasal drainage. NECK: Supple without lymphadenopathy. CHEST: Non-labored respirations and equal bilateral excursions. CARDIOVASCULAR: Palpable 2+ radial pulses. ABDOMEN: Soft. Nondistended. Prevana wound vac intact and to wall suction. Stoma beefy red. Stool in ostomy bag MUSCULOSKELETAL: No clubbing or cyanosis. NEUROLOGIC: No focal or lateralizing signs. Cranial nerves II through XII grossly intact. PSYCH: Intubated SKIN: Well perfused. Good skin turgor. ASSESSMENT: 1. Septic shock 2. 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 Lack of general medical care 4. Complicated left groin wound, 4 cm 5. Intermesenteric abscess, pelvis 6. Left inguinal hernia 7. Oliguric 8. Atrial fibrillation with rapid ventricular response 9. Hypokalemia PLAN: -Continue ICU management -Vent management per critical care service -Continue tube feeds through NG tube -Continue Prevana wound VAC system to high wall suction -Wound vac to be changed per Dr. Felipe at bedside tomorrow -Continue pain management -Continue antibiotics per ID service -Potassium being replaced Physician Chief Business Officer note has been reviewed by physician. Signing provider agrees with the documented findings, assessment, and plan of care. Objective - Vital Signs Vital signs: Vital Signs Temp 97.6 F 12/12/23 12:00 Pulse 64 12/12/23 14:00 Resp 15 12/12/23 14:00 BP 107/50 12/12/23 14:00 Pulse Ox 94 L 12/12/23 14:00 FiO2 45 12/12/23 12:00 Intake & Output 12/11/23 12/12/23 12/12/23 18:59 06:59 18:59 Intake Total 7462.320 4514.713 832.297 Output Total 2845 1165 240 Balance -1319.222 109.713 592.297 Weight 98 kg Intake: IV 343 273 234 0.9 240 240 160 Meropenem 1 gm In Sodium 100 50 Chloride 0.9% 100 ml @ 33 .3 mls/hr IVPB Q8HR [facility] Rx#:[id number] pressure bag 3 33 24 Intake, IV Titration 436.778 298.713 114.297 Amount Anidulafungin 100 mg In 260 Sodium Chloride 0.9% 100 ml @ 84 mls/hr IVPB DAILY @1600 [facility] Rx#:[id number] Diltiazem 125 mg In 5.833 49.667 Sodium Chloride 0.9% 100 ml @ Titrate IV .Q24H [facility] Rx#:[id number] Heparin Sod,Pork in 0.45% 147.429 26.342 NaCl 25,000 unit In 0.45 % NaCl 1 250ml.bag @ 10. 661 UNITS/KG/HR 10 mls/hr IV .Q24H [facility] Rx#: [id number] Norepinephrine 8 mg In 106.964 56.023 16.453 Sodium Chloride 0.9% 250 ml @ 0.03 MCG/KG/MIN 5. 445 mls/hr IV .Q24H [facility] Rx#:[id number] Vasopressin 20 unit In 51 45.594 71.502 Sodium Chloride 0.9% 50 ml @ 0.03 UNITS/MIN 4.59 mls/hr IV .Q11H7M [facility] Rx# :[id number] propofoL 1,000 mg In 12.981 Empty Bag 1 bag @ 15 MCG/ KG/MIN 7.348 mls/hr IV . [id number] [facility] Rx#:[id number] Tube Feeding 636 583 424 Other 110 120 60 Output: Urine 2345 1015 240 Stool 500 150 Other: Voiding Method Indwelling Catheter Indwelling Catheter Indwelling Catheter ABP, PAP, CO, CI - Last Documented Arterial Blood Pressure 104/34 - Labs CBC & Chem 7: 12/12/23 04:54 12/12/23 04:54 Labs: Abnormal Lab Results - Last 24 Hours (Table) 12/11/23 12/12/23 12/12/23 Range/Units 17:09 01:21 04:54 WBC 16.1 H (3.8-10.6) k/uL RBC 3.26 L (3.80-5.40) m/uL Hgb 8.6 L (11.4-16.0) gm/dL Hct 27.3 L (34.0-46.0) % RDW 21.0 H (11.5-15.5) % Neutrophils # 13.9 H (1.3-7.7) k/uL APTT (22.0-30.0) sec ABG pH (7.35-7.45) ABG HCO3 (21-25) mmol/L ABG Total CO2 (19-24) mmol/L ABG O2 Saturation (94-97) % Sodium (137-145) mmol/L Potassium (3.5-5.1) mmol/L Chloride (98-107) mmol/L BUN (7-17) mg/dL Creatinine (0.52-1.04) mg/dL Glucose (74-99) mg/dL POC Glucose (mg/dL) 158 H 140 H (70-110) mg/dL Calcium (8.4-10.2) mg/dL 12/12/23 12/12/23 12/12/23 Range/Units 04:54 05:20 06:14 WBC (3.8-10.6) k/uL RBC (3.80-5.40) m/uL Hgb (11.4-16.0) gm/dL Hct (34.0-46.0) % RDW (11.5-15.5) % Neutrophils # (1.3-7.7) k/uL APTT (22.0-30.0) sec ABG pH 7.52 H (7.35-7.45) ABG HCO3 30 H (21-25) mmol/L ABG Total CO2 31 H (19-24) mmol/L ABG O2 Saturation 98.0 H (94-97) % Sodium 136 L (137-145) mmol/L Potassium 3.3 L (3.5-5.1) mmol/L Chloride 112 H (98-107) mmol/L BUN 23 H (7-17) mg/dL Creatinine 0.48 L (0.52-1.04) mg/dL Glucose 142 H (74-99) mg/dL POC Glucose (mg/dL) 155 H (70-110) mg/dL Calcium 6.7 L (8.4-10.2) mg/dL 12/12/23 12/12/23 Range/Units 06:23 11:53 WBC (3.8-10.6) k/uL RBC (3.80-5.40) m/uL Hgb (11.4-16.0) gm/dL Hct (34.0-46.0) % RDW (11.5-15.5) % Neutrophils # (1.3-7.7) k/uL APTT 36.3 H (22.0-30.0) sec ABG pH (7.35-7.45) ABG HCO3 (21-25) mmol/L ABG Total CO2 (19-24) mmol/L ABG O2 Saturation (94-97) % Sodium (137-145) mmol/L Potassium (3.5-5.1) mmol/L Chloride (98-107) mmol/L BUN (7-17) mg/dL Creatinine (0.52-1.04) mg/dL Glucose (74-99) mg/dL POC Glucose (mg/dL) 154 H (70-110) mg/dL Calcium (8.4-10.2) mg/dL Microbiology - Last 24 Hours (Table) 12/10/23 07:20 Gram Stain - Final Bronchoalviolar Lavage - Left Bronchial Washings Culture - Final Romelia albicans 12/10/23 07:20 Acid Fast Bacilli Smear - Preliminary Bronchoalviolar Lavage - Left 12/08/23 08:46 Blood Culture - Preliminary Blood
[2023-12-12] MEDS: POTASSIUM BICARBONATE/CIT AC 20 MEQ TABLET.EFF PO SCH ×2 (15:22→16:55)
[2023-12-12] MEDS: ANIDULAFUNGIN 100 MG in SODIUM CHLORIDE 0.9% 100 ML IVPB SCH (15:29)
[2023-12-12 18:00] LABS: Glucose,Whole Blood 115 mg/dL (70-110)
--- NOTE | 2023-12-12 21:53 | P.PN ---
Subjective This is a pleasant 73 years old female who presents to the emergency room for lower abdominal fistula drainage, associated with generalized weakness. Patient looks awake alert but tired looking, pale. Feels generally weak. N has mild generalized abdominal pain and tenderness. No rebound tenderness. Blood with malodorous left lower abdominal fistula drainage with fecal material coming out. Patient also with right rotation. Patient also with unstageable sacral pressure ulcer. With some evidence of cellulitis. Patient is mildly confused. But no headache or weakness in upper or lower patient was hypotensive with a blood pressure/42, currently slightly better 96/43. Potassium is low 2.9, WBC elevated 23,000, hemoglobin 7.4. Creatinine 0.7. Liver enzymes unremarkable. CT of the abdomen pelvis showing sigmoid diverticulitis and proctitis. 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 Please refer to the report for more details. Patient was ordered received normal saline boluses. Currently on Normosol at 130 mL/h She received 1 dose of Zosyn and started on Flagyl. We are going to add cefepime for gram-negative coverage. 12/05/2023 Patient is awake and alert, generally weak and tired, mildly drowsy Denies abdominal pain or tenderness, she has fistula in the left lower abdomen She denies chest pain or dyspnea. No headache dizziness weakness or numbness. No breathing difficulty. And currently she is saturating well on room air. Blood pressure is still on the low side.but is improving while on IV fluid Glucose 65 and her fluids changed to D5 normal saline at 1 30 mL/h She is currently covered with cefepime and IV Flagyl and IV Protonix She has leukocytosis of 23,000, hemoglobin stable 7.9, low potassium been replaced. Magnesium is normal 2.0. B12 541, Elevated ESR 75 and CRP 25 Patient at moderate risk for her multiple medical problems. Because of this ec hocardiogram was requested and cardiology consulted for preop evaluation. 12/06/2023 Patient remains awake and oriented, mildly lethargic Patient today was supposed to go for surgery to fix her enteric fistula Blood pressure was on the low side this morning I got a call from the bedside nurse blood pressure was 68/32, a bolus of normal saline is provided as well as midodrine Blood pressure a little low after first bolus, where going to give her another bolus of 1 L follow-up with the blood pressure. 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 Biology Internship eval into the patient for preop assessment and there is no contraindication to proceed with surgery. Patient remains on normal saline with 30 mL/h, cefepime, IV Flagyl and IV Protonix 12/07/2023 Patient s/p sigmoid colectomy and taken down the fistula with peritoneal lavage, creatinine descending colostomy pouch with rectum Gabriel procedure by surgery team Postoperatively and perioperatively patient was hypotensive, after the procedure she got intubated and sent to the intensive care unit and started on pressors Patient remains on excessive hydration She is making about 10 to 20 mL of urine output She remains on broad-spectrum antibiotics with IV cefepime and Flagyl Patient labs and vitals are reviewed 12/08/2023 Patient remains in the ICU in critical condition 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 Patient was started on amiodarone and heparin drip Also patient abdomen soft but she is becoming more anuric She still intubated on mechanical ventilation with assist-control Her leukocytosis is worse at 33,000 urine cultures grewing Klebsiella. Blood cultures positive for gram negative bacilli Her antibiotics was adjusted to meropenem and IV vancomycin. Her fluids running normal saline changed to sodium bicarb at 150 mL/h She is still on IV Protonix Her albumin is low so they are going to give her 1 dose of albumin IV if no imp rovement 12/09/2023 Patient remains in the ICU intubated and sedated She was still on pressors this morning on Levophed at 0.09, bicarbonate drip at 150 mL also vasopressin 0.03. She still has wound VAC in his abdomen. Patient blood pressure started improving 115/45 Potassium 3.4, WBC trending down to 28,000, hemoglobin 9.8. Albumin is 1.5 and patient 2 more bags of albumin 25 g to support her system as she has anasarca and significant swelling of the lower extremities. Patient remains also on broad-spectrum antibiotics with IV vancomycin and meropenem. She is also on Protonix. Discussed with staff. 12/10/2023 pt remains in the icu intubated and sedated pt chest xray showing left hemilthorax collapse pt requiring pressors, planning to wean down if possible c'w treatment for a fib with amiodaron and heparin drip still on broad spectrum antibioitc 12/11/2023 Patient felt to be improving although she still intubated in the ICU in critical condition and followed closely by pulmonary/critical care team Levophed dose decreased from yesterday 0.09 down to 0.03. Bicarb drip was stopped. Vasopressin dose actually slightly increased from 0.03 up to 0.04. Heparin drip was continued. Patient continued on tube feeding Antibiotic with vancomycin and meropenem, Eraxis added today 12/12/2023 Patient remains intubated in the ICU Patient showing signs of improving gradually. She is requiring less pressors of Levophed today was down to 0.01, she was on vasopressin 0.04 trying to wean it down to 0.0 3 in the morning and see the response of the patient through the day. Her leukocytosis also coming down 20,000 down to 16,000, Patient continued on broad-spectrum antibiotics of meropenem, IV vancomycin and Eraxis. Also she is on oral amiodarone with cardiology following closely. Objective - Vital Signs Vital signs: Vital Signs Temp 97.6 F 12/12/23 12:00 Pulse 65 12/12/23 12:00 Resp 22 12/12/23 12:00 BP 119/51 12/12/23 12:00 Pulse Ox 98 12/12/23 12:00 FiO2 45 12/12/23 12:00 Intake & Output 12/11/23 12/12/23 12/12/23 18:59 06:59 18:59 Intake Total 0127.834 8488.713 668.083 Output Total 2845 1165 180 Balance -1319.222 109.713 488.083 Weight 98 kg Intake: IV 343 273 188 0.9 240 240 120 Meropenem 1 gm In Sodium 100 50 Chloride 0.9% 100 ml @ 33 .3 mls/hr IVPB Q8HR [facility] Rx#:[id number] pressure bag 3 33 18 Intake, IV Titration 436.778 298.713 102.083 Amount Anidulafungin 100 mg In 260 Sodium Chloride 0.9% 100 ml @ 84 mls/hr IVPB DAILY @1600 [facility] Rx#:[id number] Diltiazem 125 mg In 5.833 49.667 Sodium Chloride 0.9% 100 ml @ Titrate IV .Q24H [facility] Rx#:[id number] Heparin Sod,Pork in 0.45% 147.429 26.342 NaCl 25,000 unit In 0.45 % NaCl 1 250ml.bag @ 10. 661 UNITS/KG/HR 10 mls/hr IV .Q24H [facility] Rx#: [id number] Norepinephrine 8 mg In 106.964 56.023 14.184 Sodium Chloride 0.9% 250 ml @ 0.03 MCG/KG/MIN 5. 445 mls/hr IV .Q24H [facility] Rx#:[id number] Vasopressin 20 unit In 51 45.594 61.557 Sodium Chloride 0.9% 50 ml @ 0.03 UNITS/MIN 4.59 mls/hr IV .Q11H7M [facility] Rx# :[id number] propofoL 1,000 mg In 12.981 Empty Bag 1 bag @ 15 MCG/ KG/MIN 7.348 mls/hr IV . [id number] [facility] Rx#:[id number] Tube Feeding 636 583 318 Other 110 120 60 Output: Urine 2345 1015 180 Stool 500 150 Other: Voiding Method Indwelling Catheter Indwelling Catheter Indwelling Catheter ABP, PAP, CO, CI - Last Documented Arterial Blood Pressure 111/40 - Exam -GENERAL: The patient is intubated and sedated HEENT: Pupils are round and equally reacting to light. EOMI. No scleral icterus. No conjunctival pallor. Normocephalic, atraumatic. No pharyngeal erythema. No thyromegaly. CARDIOVASCULAR: S1 and S2 present. No murmurs, rubs, or gallops. PULMONARY: Chest is clear to auscultation, no wheezing , no crackles. -ABDOMEN: Soft, nontender, nondistended, normoactive bowel sounds. No palpable organomegaly. Left lower abdominal colostomy bag MUSCULOSKELETAL: No joint swelling or deformity. -EXTREMITIES: No cyanosis, clubbing, or pedal edema. Right knee amputation, old NEUROLOGICAL: Gross neurological examination did not reveal any focal deficits. SKIN: No rashes. no petechiae. - Labs CBC & Chem 7: 12/12/23 04:54 12/12/23 14:18 Labs: Abnormal Lab Results - Last 24 Hours (Table) 12/11/23 12/12/23 12/12/23 Range/Units 17:09 01:21 04:54 WBC 16.1 H (3.8-10.6) k/uL RBC 3.26 L (3.80-5.40) m/uL Hgb 8.6 L (11.4-16.0) gm/dL Hct 27.3 L (34.0-46.0) % RDW 21.0 H (11.5-15.5) % Neutrophils # 13.9 H (1.3-7.7) k/uL APTT (22.0-30.0) sec ABG pH (7.35-7.45) ABG HCO3 (21-25) mmol/L ABG Total CO2 (19-24) mmol/L ABG O2 Saturation (94-97) % Sodium (137-145) mmol/L Potassium (3.5-5.1) mmol/L Chloride (98-107) mmol/L BUN (7-17) mg/dL Creatinine (0.52-1.04) mg/dL Glucose (74-99) mg/dL POC Glucose (mg/dL) 158 H 140 H (70-110) mg/dL Calcium (8.4-10.2) mg/dL 12/12/23 12/12/23 12/12/23 Range/Units 04:54 05:20 06:14 WBC (3.8-10.6) k/uL RBC (3.80-5.40) m/uL Hgb (11.4-16.0) gm/dL Hct (34.0-46.0) % RDW (11.5-15.5) % Neutrophils # (1.3-7.7) k/uL APTT (22.0-30.0) sec ABG pH 7.52 H (7.35-7.45) ABG HCO3 30 H (21-25) mmol/L ABG Total CO2 31 H (19-24) mmol/L ABG O2 Saturation 98.0 H (94-97) % Sodium 136 L (137-145) mmol/L Potassium 3.3 L (3.5-5.1) mmol/L Chloride 112 H (98-107) mmol/L BUN 23 H (7-17) mg/dL Creatinine 0.48 L (0.52-1.04) mg/dL Glucose 142 H (74-99) mg/dL POC Glucose (mg/dL) 155 H (70-110) mg/dL Calcium 6.7 L (8.4-10.2) mg/dL 12/12/23 12/12/23 Range/Units 06:23 11:53 WBC (3.8-10.6) k/uL RBC (3.80-5.40) m/uL Hgb (11.4-16.0) gm/dL Hct (34.0-46.0) % RDW (11.5-15.5) % Neutrophils # (1.3-7.7) k/uL APTT 36.3 H (22.0-30.0) sec ABG pH (7.35-7.45) ABG HCO3 (21-25) mmol/L ABG Total CO2 (19-24) mmol/L ABG O2 Saturation (94-97) % Sodium (137-145) mmol/L Potassium (3.5-5.1) mmol/L Chloride (98-107) mmol/L BUN (7-17) mg/dL Creatinine (0.52-1.04) mg/dL Glucose (74-99) mg/dL POC Glucose (mg/dL) 154 H (70-110) mg/dL Calcium (8.4-10.2) mg/dL Microbiology - Last 24 Hours (Table) 12/10/23 07:20 Gram Stain - Final Bronchoalviolar Lavage - Left Bronchial Washings Culture - Final Romelia albicans 12/10/23 07:20 Acid Fast Bacilli Smear - Preliminary Bronchoalviolar Lavage - Left 12/08/23 08:46 Blood Culture - Preliminary Blood Assessment and Plan Assessment: Acute sigmoid sigmoid colitis, diverticulitis with proctitis. With multiple entero-cutaneous and entero-vesical fistulas, including to the left lower abdominal wall. Septic shock Acute hypoxic respiratory failure requiring intubation and mechanical ventilation Gram-negative bacteremia A-fib and RVR Acute kidney injury, oliguric Acute anemia, unknown baseline, chronic microcytic Full-thickness sacral pressure ulcer, with no obvious osseous erosions. Metabolic encephalopathy, with possible elements of delirium Bilateral adrenal nodule, recommend follow-up CT in 3 months. Acute urinary tract infection/cystitis. Culture is growing Klebsiella Anasarca With severe hypoalbuminemia Plan: Continue with IV fluid and monitor vitals. currently on sodium bicarb at 150 Continue with antibiotic, meropenem and IV vancomycin, ID team on the case Continue with wound care and wound VAC in place with surgery team following closely Patient remains intubated on mechanical ventilation with pulmonary/critical care team consult Cardiology team following closely Continue with amiodarone pills and heparin drip per private household worker IV Protonix Give albumin for hypoalbuminemia Monitor and follow-up blood culture DVT prophylaxis: heparin, SCD GI prophylaxis: Protonix Prognosis guarded,
[2023-12-12] MEDS: AMIODARONE 200 MG TAB PO SCH (21:56)
[2023-12-13 01:09] LABS: Glucose,Whole Blood 112 mg/dL (70-110)
[2023-12-13 02:52] LABS: African American GFR (CKD) >90 (>60 ml/min/1.73 sqM); Anion Gap -3 mmol/L; Blood Urea Nitrogen 29 mg/dL (7-17); Carbon Dioxide 30 mmol/L (22-30); Chloride 111 mmol/L (98-107); Glucose 113 mg/dL (74-99); Non-African American GFR(CKD) >90 (>60 ml/min/1.73 sqM); Sodium 138 mmol/L (137-145)
[2023-12-13 02:55] LABS: Potassium 5.4 mmol/L (3.5-5.1)
[2023-12-13 05:43] LABS: Anisocytosis Moderate; Basophils # (A) 0.1 k/uL (0-0.2); Basophils % (A) 0 %; Eosinophils # (A) 0.3 k/uL (0-0.7); Eosinophils % (A) 2 %; HCT 26.3 % (34.0-46.0); HGB 8.6 gm/dL (11.4-16.0); Hypochromasia Moderate; Lymphocytes # (A) 1.2 k/uL (1.0-4.8); Lymphocytes % (A) 8 %; MCH 26.6 pg (25.0-35.0); MCHC 32.5 g/dL (31.0-37.0); Mean Platelet Volume 10.1; Microcytosis Slight; Monocytes # (A) 0.5 k/uL (0-1.0); Monocytes % (A) 3 %; Neutrophils # (A) 12.9 k/uL (1.3-7.7); Neutrophils % (A) 86 %; Platelet Count 191 k/uL (150-450); RBC 3.21 m/uL (3.80-5.40); RDW 21.7 % (11.5-15.5); WBC 15.1 k/uL (3.8-10.6)
--- NOTE | 2023-12-13 07:57 | XR ---
EXAMINATION TYPE: XR chest 1V portable DATE OF EXAM: 12/13/2023 COMPARISON: 12/12/2023 HISTORY: SOB, Follow Up FINDINGS: Indwelling tubes and catheters are unchanged. No change in bibasilar opacities. Stable appearance of the cardio-mediastinal structures at this time. Pleural effusion unchanged. IMPRESSION: 1. Stable portable chest. Clinical correlation and follow up until resolution is recommended.
[2023-12-13] MEDS: FUROSEMIDE 10 MG/ML 4 ML VIAL IV STA (09:07)
--- NOTE | 2023-12-13 11:33 | P.PN ---
Subjective Progress Note Date: 12/13/23 Principal diagnosis: Abdominal sepsis, diverticulitis, gram-negative bacteremia This is a 74-year-old female patient who was brought into the intensive care unit after an extensive abdominal surgery. The patient underwent exploratory laparotomy and sigmoid colectomy and diverging colostomy. The patient was emergently taken to the operating room this afternoon as the patient was becoming hypotensive and she had developed persistent leukocytosis intermittent fevers consistent with sepsis and septic shock. The patient was also becoming hypotensive despite being resuscitated with IV fluids and the patient preoperatively received a total of 3 L of IV fluids. An emergent surgical exploration was indicated. 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 At this point in time, the patient is sedated and the patient is currently on propofol. She is intubated on mechanical ventilator and she is on assist- control mode at a rate of 12, tidal volume of 400, FiO2 of 100% and a PEEP of 5. Chest x-ray shows a right IJ triple-lumen catheter. ET tube is in good location. No airspace disease or consolidation. The blood gases showed a pH of 7.22 with a pCO2 of 51 and pO2 of 255. The patient is currently on no pressors and urine output is quite diminished in the order of 10 to 20 cc since arrival from the operating room. The patient is on IV cefepime and Flagyl. Received a total of 2 unit PRBC intraop 12/07/2023, I am seeing the patient for a follow-up in the intensive care unit. The patient is currently postop day #1. The patient remains intubated on the mechanical ventilator. This morning, the patient is on propofol which is running at 30 mcg/kg/min. She was resuscitated with IV fluids. She was maintained on normal saline at rate of 150 cc an hour and norepinephrine was also added overnight and currently norepinephrine is running at 0.07 mcg/kg/min. Her urine output is in the order of 10 to 20 cc an hour. Overall fluid balance over the past 24 hours has been +3.6 L. The patient remains on a combination of cefepime and Flagyl. The blood work from today shows a WBC count of 37.4, hemoglobin 10.7 and platelet count of 499. BUN is at 15 with a creatinine of 0.8. Sodium is at 143 from yesterday. Repeat electrolytes are still pending for now. Meanwhile, the patient remains intubated on mechanical ventilator. This morning, she is on assist-control mode at rate of 24, tidal volume of 400, FiO2 is at 55% with a PEEP of 5. The blood gas shows a pH of 7.38 with a pCO2 of 31 and pO2 of 119. Review of the chest x-ray from this morning shows adequate positioning of the orotracheal tube. This may need to be pushed in by 1 cm. The patient has a small atelectasis/left-sided pleural effusion. Otherwise, the right lung is essentially clear at this point in time. Antibiotic coverage includes a combination of cefepime and Flagyl. The patient will need Dilaudid for pain control. She is on heparin subcu for DVT prophy laxis. She is resting comfortably in bed. No other significant events overnight. Currently she is afebrile. The wound VAC is in place. Colostomy site is not fully functional at this point in time. Abdomen is soft. 12/08/2023, the patient remains intubated on mechanical ventilator and she is in the intensive care unit postop day #2. The patient remains on a mechanical ventilator. She is currently on assist-control mode with rate of 24, tidal volume of 400, FiO2 of 50% with a PEEP of 5. The blood gases from this morning showed a pH of 7.28 with a pCO2 of 32 and pO2 of 105. The chest x-ray was reviewed and shows evidence of left basilar effusion/atelectasis. Orotracheal tube is in good location. The patient is triple-lumen catheter in her right IJ. Unfortunately, at around 3 AM this morning, the patient went into A-fib RVR and the patient became profoundly hypotensive. The patient progressively required higher dose of norepinephrine and currently norepinephrine is running at 0.2 mcg/kg/min and her mean arterial pressure is around 64. At the same time, the patient received treatment for her new onset atrial fibrillation. She was given an amiodarone bolus and currently she is on amiodarone at 0.5 mg/min. Based on her underlying hypotension. The patient was thought to hemodynamically unstable with A-fib RVR. The patient received cardioversion on 3 separate occasions using 120 J, 150 J and 200 J. Those attempts failed and the patient remained in atrial fibrillation. Her current heart rate is running at around 150 beats a minute, irregular. Urine output has dropped and the patient is producing only 10 cc an hour. At the same time, the patient's white cell count is up to 33.3 with a hemoglobin 12.1 and platelet count of 412. NG tube is in place. Output is minimal. Abdomen remains soft. The wound VAC is still in place. There is some liquidy stool material in the colostomy bag. No abdominal distention. The patient has been developing progressive edema and upper extremities in the left lower extremity. 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 Rest of the electrolytes show a sodium level of 143, serum bicarb is down to 12, anion gap is at 6, BUN is at 17 with a creatinine of 0.8. Magnesium level is at 1.9 with a calcium level of 7.9. The patient remains on IV cefepime and Flagyl. Urine culture from 12/04/2023 was positive for Klebsiella pneumoniae. She is currently afebrile. Propofol is running at 35 mcg/kg/min. The patient has been adequately sedated for now. Patient was reevaluated today on 12/09/2023, remains intubated and mechanically ventilated. On assist-control rate of 24 tidal volume 400 FiO2 50% and PEEP of 5. ABG showed a pO2 of 128 pCO2 35 pH 7.39. His FiO2 was cut down to 40% instead of 50%. Patient remained on multiple drips including norepinephrine, 0.04 mcg/kg/min, propofol at 35 mcg/kg/min, vasopressin at 0.03 units/min, D5W with 3 A of bicarb running at 150 cc/h. Patient is receiving vancomycin and Merrem. Patient has a left IJ triple-lumen catheter and left radial arterial line. Urine is positive Klebsiella, blood cultures were noted to be also positive for gram-negative bacilli. Most likely Klebsiella. Patient is on Merrem and she is on vancomycin patient is now postoperative day #3. Patient received 2 units of packed RBCs, since admission, hemoglobin now is 9.8, hemoglobin went as low as 7.4 on 12/04 labs today showed PTT of 57.4, basic metabolic profile is normal except for low potassium of 3.0 bicarb is 16, renal profile is normal WBC count is 28.5 hemoglobin is 9.8 urine cultures are positive for Klebsiella pneumoniae. Nutrition hicks the patient is receiving vit al HP 10 cc/h. Patient remains in atrial fibrillation, rate seems to be reasonably controlled Patient was reevaluated today on 12/10/2023, remains in the ICU, intubated and mechanically ventilated. Earlier this morning I was made aware of the patient's chest x-ray showing complete collapse of the left lung, and tracheal deviation to the ipsilateral side. This was clearly consistent with mucous plugging involving the left mainstem bronchus. Hence the patient underwent bronchoscopy, suctioning of the mucous plugs, and bronchoalveolar lavage of the left upper lobe lingula and left lower lobe. Please refer to the full operative report regarding this procedure. Patient remains intubated, mechanically ventilated, she is on assist-control rate of 24 tidal volume 400 FiO2 is now 50% PEEP of 10 and I cut it down to 8. Patient remains on multiple drips including norepinephrine at 0.06 mcg/kg/min vasopressin at 0.04 units/h, bicarb drip which I have discontinued today, Cardizem drip at 5 mg/h. Patient is also on heparin drip, propofol at 15 mcg/kg/min. Antibiotics hicks remains on Merrem for Klebsiella infection involving urine and blood. Chest x-ray as noted above, patient had complete opacification of the left lung, however after bronchoscopy and BAL significant improvement was noted and aeration of left lung significantly improved. ABG this morning on 40% showed a pO2 of 55 pCO2 48 and pH of 7.39 BBC count is 19.7, improving hemoglobin is 9.1. Platelets 253. ASIC metabolic profile is normal and renal profile is normal Patient was placed today on 12/11/2023, remains in the ICU, intubated and mechanically ventilated, sedated. On assist-control rate of 24 tidal volume 400 FiO2 50% and PEEP of 8 patient is requiring hemodynamic support with vasopressin 0.04 units, norepinephrine at 0.03 mcg/kg/min, patient is nutritionally supported with vital HP at 53 mL/h. ABG showed a pO2 of 96 pCO2 39 pH of 7.48. Patient remains on vancomycin and Merrem, urine output is about 40 cc/h hence I recommended Lasix to be given today 40 mg IV push x 1. Patient has a functioning ostomy, and she continues to have a wound VAC in place. CODE STATUS has been changed to DNR, yesterday, the patient underwent a bronchoscopy for complete opacification of the left lung, cultures from the BAL are pending, on today's chest x-ray there is minimal atelectasis in the left midlung, left lung remains relatively fully expanded Patient was reevaluated today on 12/12/2023, remains in the ICU intubated and mechanically ventilated. Patient is still requiring pressors, still on assist- control rate of 24 tidal volume 400 FiO2 45% PEEP is 8 and I cut it down to 6 today. ABG showed a pO2 of 105 pCO2 37 pH of 7.52 patient has been off propofol for the last 24 hours, still receiving heparin, she is on vasopressin at 0.02, and on norepinephrine at 0.01 mcg/kg/min. Antibiotics hicks, patient remains on Merrem and Eraxis. Patient is arousable, opens her eyes, extremely weak, however she is able to squeeze hands only. Continues to have leukocytosis with WBC count of 16.1 hemoglobin is 8.6, basic metabolic profile is normal. Nutrition hicks, patient remains on vital HP at 53/53 cc/h. Plan today on this patient is to continue patient off any sedation, and hopefully give the patient a trial of pressure support and CPAP, I do not believe the patient is ready to be extubated, but will start at least at times of weaning trials with pressure support mode of mechanical ventilation Patient was evaluated today on 12/13/2023, remains in the ICU, intubated and mechanically ventilated, patient is on assist-control rate of 24 tidal volume 400 FiO2 45% and PEEP of 6. ABG was done this morning. Overall the patient has not shown any significant change in the last few days, remains off sedation, patient is arousable, follows simple instructions like squeezing hands and wiggling toes. Hence I plan to give the patient today a trial of pressure support of 12 and CPAP, patient is still requiring a tiny bit of norepinephrine at 0.01 mcg/kg/min, patient remains on vital HP at 53 cc/h, and on heparin drip. Cardiac hicks, patient is on Merrem. Patient looks edematous and swollen, I recommended Lasix 40 mg IV push x 1 today chest x-ray is showing small left pleural effusion and atelectasis.WBC count is 15.1 hemoglobin 8.6. Basic metabolic profile is normal. BUN and creatinine are normal. Objective - Vital Signs Vital signs: Vital Signs Temp 97.9 F 12/13/23 08:00 Pulse 71 12/13/23 11:00 Resp 21 12/13/23 11:00 BP 96/48 12/13/23 11:00 Pulse Ox 96 12/13/23 11:00 FiO2 45 12/13/23 10:44 Intake & Output 12/12/23 12/13/23 12/13/23 18:59 06:59 18:59 Intake Total 1447.520 893 787.071 Output Total 605 1075 1075 Balance 842.520 -182 -287.929 Weight 95.9 kg Intake: IV 384 220 180 0.9 260 220 80 Meropenem 1 gm In Sodium 100 100 Chloride 0.9% 100 ml @ 33 .3 mls/hr IVPB Q8HR [facility] Rx#:[id number] pressure bag 24 Intake, IV Titration 284.520 282.071 Amount Anidulafungin 200 mg In 130 Sodium Chloride 0.9% 200 ml @ 84 mls/hr IVPB ONCE ONE Rx#:[id number] Heparin Sod,Pork in 0.45% 26.342 203.481 NaCl 25,000 unit In 0.45 % NaCl 1 250ml.bag @ 10. 661 UNITS/KG/HR 10 mls/hr IV .Q24H [facility] Rx#: [id number] Norepinephrine 8 mg In 50.938 78.590 Sodium Chloride 0.9% 250 ml @ 0.03 MCG/KG/MIN 5. 445 mls/hr IV .Q24H [facility] Rx#:[id number] Vasopressin 20 unit In 77.240 Sodium Chloride 0.9% 50 ml @ 0.03 UNITS/MIN 4.59 mls/hr IV .Q11H7M [facility] Rx# :[id number] Tube Feeding 689 583 265 Other 90 90 60 Output: Urine 427 246 8191 Stool 150 Other: Voiding Method Indwelling Catheter Indwelling Catheter ABP, PAP, CO, CI - Last Documented Arterial Blood Pressure 95/53 - Exam General: Reveals 71-year-old female intubated mechanically ventilated, awake, follows very simple instructions but she seems to be generally weak. Skin: No rashes. Eye: Pupils are equal, round and reactive to light, extra-ocular movements are intact; there is normal conjunctiva bilaterally. Ears, nose, mouth and throat: There are moist mucous membranes and no oral lesions. Endotracheal tube is intact. Neck: The neck is supple, there is no tenderness or JVD. Cardiovascular: Distant S1-S2, no S3 gallop, no murmur. Respiratory: Good breath sound bilaterally no crackles rhonchi or wheezes Abdomen: Soft, nontender, no megaly, wound VAC is noted, colostomy is functional. Musculoskeletal: Right above-knee amputation is noted otherwise unremarkable. Swelling noted in both lower extremities Neurological: Arousable, follows instructions, but seems to be extremely and profoundly weak Psychiatric: Could not assess - Labs CBC & Chem 7: 12/13/23 05:04 12/13/23 02:28 Labs: Abnormal Lab Results - Last 24 Hours (Table) 12/12/23 12/12/23 12/12/23 Range/Units 11:53 14:18 14:18 WBC (3.8-10.6) k/uL RBC (3.80-5.40) m/uL Hgb (11.4-16.0) gm/dL Hct (34.0-46.0) % RDW (11.5-15.5) % Neutrophils # (1.3-7.7) k/uL APTT 52.5 H (22.0-30.0) sec Potassium 2.4 L* (3.5-5.1) mmol/L Chloride (98-107) mmol/L BUN (7-17) mg/dL Creatinine (0.52-1.04) mg/dL Glucose (74-99) mg/dL POC Glucose (mg/dL) 154 H (70-110) mg/dL Calcium (8.4-10.2) mg/dL 12/12/23 12/13/23 12/13/23 Range/Units 17:59 01:08 02:28 WBC (3.8-10.6) k/uL RBC (3.80-5.40) m/uL Hgb (11.4-16.0) gm/dL Hct (34.0-46.0) % RDW (11.5-15.5) % Neutrophils # (1.3-7.7) k/uL APTT (22.0-30.0) sec Potassium 5.4 H (3.5-5.1) mmol/L Chloride 111 H (98-107) mmol/L BUN 29 H (7-17) mg/dL Creatinine 0.40 L (0.52-1.04) mg/dL Glucose 113 H (74-99) mg/dL POC Glucose (mg/dL) 115 H 112 H (70-110) mg/dL Calcium 7.0 L (8.4-10.2) mg/dL 12/13/23 12/13/23 Range/Units 05:04 08:20 WBC 15.1 H (3.8-10.6) k/uL RBC 3.21 L (3.80-5.40) m/uL Hgb 8.6 L (11.4-16.0) gm/dL Hct 26.3 L (34.0-46.0) % RDW 21.7 H (11.5-15.5) % Neutrophils # 12.9 H (1.3-7.7) k/uL APTT 35.0 H (22.0-30.0) sec Potassium (3.5-5.1) mmol/L Chloride (98-107) mmol/L BUN (7-17) mg/dL Creatinine (0.52-1.04) mg/dL Glucose (74-99) mg/dL POC Glucose (mg/dL) (70-110) mg/dL Calcium (8.4-10.2) mg/dL Microbiology - Last 24 Hours (Table) 12/09/23 16:45 Gram Stain - Final Aspirate Body Fluid Culture - Final Romelia albicans 12/10/23 07:20 Gram Stain - Final Bronchoalviolar Lavage - Left Bronchial Washings Culture - Final Romelia albicans Assessment and Plan Assessment: Impression: Status post exploratory laparotomy colectomy and diverting colostomy and debridement of cutaneous fistula postoperative day #7 Abdominal sepsis and septic shock New onset atrial fibrillation with RVR Gram-negative bacteremia Klebsiella pneumonia urinary tract infection Leukocytosis secondary to above, improving. 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 Merrem and Eraxis. Bronchial washings came back positive for Romelia albicans Continue enteral feedings/nutritional support Continue amiodarone and heparin Continue GI prophylaxis Continue to hold sedation Patient remains critically ill. Critical care time is over 30 minutes CODE STATUS is DNR, and if the patient is extubated, not to be reintubated as per family's wishes Time with Patient: Greater than 30
[2023-12-13 12:16] LABS: Glucose,Whole Blood 113 mg/dL (70-110)
--- NOTE | 2023-12-13 14:18 | P.PN ---
Subjective This is a pleasant 73 years old female who presents to the emergency room for lower abdominal fistula drainage, associated with generalized weakness. Patient looks awake alert but tired looking, pale. Feels generally weak. N has mild generalized abdominal pain and tenderness. No rebound tenderness. Blood with malodorous left lower abdominal fistula drainage with fecal material coming out. Patient also with right rotation. Patient also with unstageable sacral pressure ulcer. With some evidence of cellulitis. Patient is mildly confused. But no headache or weakness in upper or lower patient was hypotensive with a blood pressure/42, currently slightly better 96/43. Potassium is low 2.9, WBC elevated 23,000, hemoglobin 7.4. Creatinine 0.7. Liver enzymes unremarkable. CT of the abdomen pelvis showing sigmoid diverticulitis and proctitis. 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 Please refer to the report for more details. Patient was ordered received normal saline boluses. Currently on Normosol at 130 mL/h She received 1 dose of Zosyn and started on Flagyl. We are going to add cefepime for gram-negative coverage. 12/05/2023 Patient is awake and alert, generally weak and tired, mildly drowsy Denies abdominal pain or tenderness, she has fistula in the left lower abdomen She denies chest pain or dyspnea. No headache dizziness weakness or numbness. No breathing difficulty. And currently she is saturating well on room air. Blood pressure is still on the low side.but is improving while on IV fluid Glucose 65 and her fluids changed to D5 normal saline at 1 30 mL/h She is currently covered with cefepime and IV Flagyl and IV Protonix She has leukocytosis of 23,000, hemoglobin stable 7.9, low potassium been replaced. Magnesium is normal 2.0. B12 541, Elevated ESR 75 and CRP 25 Patient at moderate risk for her multiple medical problems. Because of this ec hocardiogram was requested and cardiology consulted for preop evaluation. 12/06/2023 Patient remains awake and oriented, mildly lethargic Patient today was supposed to go for surgery to fix her enteric fistula Blood pressure was on the low side this morning I got a call from the bedside nurse blood pressure was 68/32, a bolus of normal saline is provided as well as midodrine Blood pressure a little low after first bolus, where going to give her another bolus of 1 L follow-up with the blood pressure. 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 Portable Irrigation Operator eval into the patient for preop assessment and there is no contraindication to proceed with surgery. Patient remains on normal saline with 30 mL/h, cefepime, IV Flagyl and IV Protonix 12/07/2023 Patient s/p sigmoid colectomy and taken down the fistula with peritoneal lavage, creatinine descending colostomy pouch with rectum Gabriel procedure by surgery team Postoperatively and perioperatively patient was hypotensive, after the procedure she got intubated and sent to the intensive care unit and started on pressors Patient remains on excessive hydration She is making about 10 to 20 mL of urine output She remains on broad-spectrum antibiotics with IV cefepime and Flagyl Patient labs and vitals are reviewed 12/08/2023 Patient remains in the ICU in critical condition blanket maker around 3:00 she 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 Patient was started on amiodarone and heparin drip Also patient abdomen soft but she is becoming more anuric She still intubated on mechanical ventilation with assist-control Her leukocytosis is worse at 33,000 urine cultures grewing Klebsiella. Blood cultures positive for gram negative bacilli Her antibiotics was adjusted to meropenem and IV vancomycin. Her fluids running normal saline changed to sodium bicarb at 150 mL/h She is still on IV Protonix Her albumin is low so they are going to give her 1 dose of albumin IV if no imp rovement 12/09/2023 Patient remains in the ICU intubated and sedated She was still on pressors this morning on Levophed at 0.09, bicarbonate drip at 150 mL also vasopressin 0.03. She still has wound VAC in his abdomen. Patient blood pressure started improving 115/45 Potassium 3.4, WBC trending down to 28,000, hemoglobin 9.8. Albumin is 1.5 and patient 2 more bags of albumin 25 g to support her system as she has anasarca and significant swelling of the lower extremities. Patient remains also on broad-spectrum antibiotics with IV vancomycin and meropenem. She is also on Protonix. Discussed with staff. 12/10/2023 pt remains in the icu intubated and sedated pt chest xray showing left hemilthorax collapse pt requiring pressors, planning to wean down if possible c'w treatment for a fib with amiodaron and heparin drip still on broad spectrum antibioitc 12/11/2023 Patient felt to be improving although she still intubated in the ICU in critical condition and followed closely by pulmonary/critical care team Levophed dose decreased from yesterday 0.09 down to 0.03. Bicarb drip was stopped. Vasopressin dose actually slightly increased from 0.03 up to 0.04. Heparin drip was continued. Patient continued on tube feeding Antibiotic with vancomycin and meropenem, Eraxis added today 12/12/2023 Patient remains intubated in the ICU Patient showing signs of improving gradually. She is requiring less pressors of Levophed today was down to 0.01, she was on vasopressin 0.04 trying to wean it down to 0.0 3 in the morning and see the response of the patient through the day. Her leukocytosis also coming down 20,000 down to 16,000, Patient continued on broad-spectrum antibiotics of meropenem, IV vancomycin and Eraxis. Also she is on oral amiodarone with cardiology following closely. 12/13/2023 Patient remains in the ICU intubated and sedated with pulmonary/critical care team following closely and help with the vent management. Actually today there were trying sedation holiday and patient has been waking up and follows simple commands. Patient could come off pressors today and her blood pressure remained stable. She remains on heparin drip for her A-fib about amiodarone drip switched to oral amiodarone 200 mg by her well surveying engineer Labs look stable or slightly fluctuating. Remains on IV vancomycin, meropenem and Eraxis Objective - Vital Signs Vital signs: Vital Signs Temp 97.9 F 12/13/23 08:00 Pulse 70 12/13/23 09:00 Resp 21 12/13/23 09:00 BP 107/52 12/13/23 09:00 Pulse Ox 98 12/13/23 09:00 FiO2 45 12/13/23 10:44 Intake & Output 12/12/23 12/13/23 12/13/23 18:59 06:59 18:59 Intake Total 1447.520 893 724.071 Output Total 605 1075 450 Balance 842.520 -182 274.071 Weight 95.9 kg Intake: IV 384 220 170 0.9 260 220 70 Meropenem 1 gm In Sodium 100 100 Chloride 0.9% 100 ml @ 33 .3 mls/hr IVPB Q8HR [facility] Rx#:[id number] pressure bag 24 Intake, IV Titration 284.520 282.071 Amount Anidulafungin 200 mg In 130 Sodium Chloride 0.9% 200 ml @ 84 mls/hr IVPB ONCE ONE Rx#:[id number] Heparin Sod,Pork in 0.45% 26.342 203.481 NaCl 25,000 unit In 0.45 % NaCl 1 250ml.bag @ 10. 661 UNITS/KG/HR 10 mls/hr IV .Q24H [facility] Rx#: [id number] Norepinephrine 8 mg In 50.938 78.590 Sodium Chloride 0.9% 250 ml @ 0.03 MCG/KG/MIN 5. 445 mls/hr IV .Q24H [facility] Rx#:[id number] Vasopressin 20 unit In 77.240 Sodium Chloride 0.9% 50 ml @ 0.03 UNITS/MIN 4.59 mls/hr IV .Q11H7M [facility] Rx# :[id number] Tube Feeding 689 583 212 Other 90 90 60 Output: Urine 605 925 450 Stool 150 Other: Voiding Method Indwelling Catheter Indwelling Catheter ABP, PAP, CO, CI - Last Documented Arterial Blood Pressure 95/53 - Exam -GENERAL: The patient is intubated and sedated HEENT: Pupils are round and equally reacting to light. EOMI. No scleral icterus. No conjunctival pallor. Normocephalic, atraumatic. No pharyngeal erythema. No thyromegaly. CARDIOVASCULAR: S1 and S2 present. No murmurs, rubs, or gallops. PULMONARY: Chest is clear to auscultation, no wheezing , no crackles. -ABDOMEN: Soft, nontender, nondistended, normoactive bowel sounds. No palpable organomegaly. Left lower abdominal colostomy bag MUSCULOSKELETAL: No joint swelling or deformity. -EXTREMITIES: No cyanosis, clubbing, or pedal edema. Right knee amputation, old NEUROLOGICAL: Gross neurological examination did not reveal any focal deficits. SKIN: No rashes. no petechiae. - Labs CBC & Chem 7: 12/13/23 05:04 12/13/23 02:28 Labs: Abnormal Lab Results - Last 24 Hours (Table) 12/12/23 12/12/23 12/12/23 Range/Units 11:53 14:18 14:18 WBC (3.8-10.6) k/uL RBC (3.80-5.40) m/uL Hgb (11.4-16.0) gm/dL Hct (34.0-46.0) % RDW (11.5-15.5) % Neutrophils # (1.3-7.7) k/uL APTT 52.5 H (22.0-30.0) sec Potassium 2.4 L* (3.5-5.1) mmol/L Chloride (98-107) mmol/L BUN (7-17) mg/dL Creatinine (0.52-1.04) mg/dL Glucose (74-99) mg/dL POC Glucose (mg/dL) 154 H (70-110) mg/dL Calcium (8.4-10.2) mg/dL 12/12/23 12/13/23 12/13/23 Range/Units 17:59 01:08 02:28 WBC (3.8-10.6) k/uL RBC (3.80-5.40) m/uL Hgb (11.4-16.0) gm/dL Hct (34.0-46.0) % RDW (11.5-15.5) % Neutrophils # (1.3-7.7) k/uL APTT (22.0-30.0) sec Potassium 5.4 H (3.5-5.1) mmol/L Chloride 111 H (98-107) mmol/L BUN 29 H (7-17) mg/dL Creatinine 0.40 L (0.52-1.04) mg/dL Glucose 113 H (74-99) mg/dL POC Glucose (mg/dL) 115 H 112 H (70-110) mg/dL Calcium 7.0 L (8.4-10.2) mg/dL 12/13/23 12/13/23 Range/Units 05:04 08:20 WBC 15.1 H (3.8-10.6) k/uL RBC 3.21 L (3.80-5.40) m/uL Hgb 8.6 L (11.4-16.0) gm/dL Hct 26.3 L (34.0-46.0) % RDW 21.7 H (11.5-15.5) % Neutrophils # 12.9 H (1.3-7.7) k/uL APTT 35.0 H (22.0-30.0) sec Potassium (3.5-5.1) mmol/L Chloride (98-107) mmol/L BUN (7-17) mg/dL Creatinine (0.52-1.04) mg/dL Glucose (74-99) mg/dL POC Glucose (mg/dL) (70-110) mg/dL Calcium (8.4-10.2) mg/dL Microbiology - Last 24 Hours (Table) 12/09/23 16:45 Gram Stain - Final Aspirate Body Fluid Culture - Final Romelia albicans 12/10/23 07:20 Gram Stain - Final Bronchoalviolar Lavage - Left Bronchial Washings Culture - Final Romelia albicans Assessment and Plan Assessment: Acute sigmoid sigmoid colitis, diverticulitis with proctitis. With multiple entero-cutaneous and entero-vesical fistulas, including to the left lower abdominal wall. Septic shock Acute hypoxic respiratory failure requiring intubation and mechanical ventilation Gram-negative bacteremia A-fib and RVR Acute kidney injury, oliguric Acute anemia, unknown baseline, chronic microcytic Full-thickness sacral pressure ulcer, with no obvious osseous erosions. Metabolic encephalopathy, with possible elements of delirium Bilateral adrenal nodule, recommend follow-up CT in 3 months. Acute urinary tract infection/cystitis. Culture is growing Klebsiella Anasarca With severe hypoalbuminemia Plan: Keep monitoring off IV fluids Continue with antibiotic, meropenem and IV vancomycin, Eraxis ID team on the case Continue with wound care and wound VAC in place with surgery team following closely Patient remains intubated on mechanical ventilation with pulmonary/critical care team consult Cardiology team following closely. Continue with heparin drip and oral amiodarone IV Protonix Monitor and follow-up blood culture DVT prophylaxis: heparin, SCD GI prophylaxis: Protonix Prognosis guarded,
--- NOTE | 2023-12-13 14:20 | P.PN ---
Subjective Progress Note Date: 12/13/23 CHIEF COMPLAINT: Perforated diverticular disease with fistulization to the skin HISTORY OF PRESENT ILLNESS: The patient is a 46-gv[age]-year-old female status post exploratory laparotomy, Magaña's procedure for colocutaneous fistula and septic shock. Patient remains in the ICU intubated and on mechanical ventilation. Patient receiving another dose of Lasix today. She is maintained on tube feeds for nutrition support. She is off of the Levophed. She is undergoing a CPAP trial today. Afebrile. WBC down from 16.1-15.1 PHYSICAL EXAM: VITAL SIGNS: Reviewed GENERAL: no acute distress. HEENT: No sclera icterus. Extraocular movements grossly intact. Moist buccal mucosa. Head is atraumatic, normocephalic. Hears conversational speech. No nasal drainage. NECK: Supple without lymphadenopathy. CHEST: Non-labored respirations and equal bilateral excursions. CARDIOVASCULAR: Palpable 2+ radial pulses. ABDOMEN: Soft. Nondistended. Prevana wound vac intact and to wall suction. Stoma beefy red. Stool in ostomy bag. Left lower abdomen below ostomy is also a wound VAC. MUSCULOSKELETAL: No clubbing or cyanosis. NEUROLOGIC: No focal or lateralizing signs. Cranial nerves II through XII grossly intact. PSYCH: Intubated SKIN: Well perfused. Good skin turgor. ASSESSMENT: 1. Septic shock 2. 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 Lack of general medical care 4. Complicated left groin wound, 4 cm 5. Intermesenteric abscess, pelvis 6. Left inguinal hernia 7. Oliguric 8. Atrial fibrillation with rapid ventricular response 9. Hypokalemia resolved PLAN: -Continue ICU management -Vent management per critical care service -Continue tube feeds through NG tube -Continue Prevana wound VAC system to high wall suction -Wound vac to be changed per Dr. Felipe at bedside today -Continue pain management -Continue antibiotics per ID service Physician Information Technology Auditor note has been reviewed by physician. Signing provider agrees with the documented findings, assessment, and plan of care. Objective - Vital Signs Vital signs: Vital Signs Temp 97.9 F 12/13/23 08:00 Pulse 71 12/13/23 11:00 Resp 21 12/13/23 11:00 BP 96/48 12/13/23 11:00 Pulse Ox 96 12/13/23 11:00 FiO2 45 12/13/23 12:10 Intake & Output 12/12/23 12/13/23 12/13/23 18:59 06:59 18:59 Intake Total 1447.520 893 845.071 Output Total 605 1075 1375 Balance 842.520 -182 -529.929 Weight 95.9 kg Intake: IV 384 220 190 0.9 260 220 90 Meropenem 1 gm In Sodium 100 100 Chloride 0.9% 100 ml @ 33 .3 mls/hr IVPB Q8HR [facility] Rx#:[id number] pressure bag 24 Intake, IV Titration 284.520 282.071 Amount Anidulafungin 200 mg In 130 Sodium Chloride 0.9% 200 ml @ 84 mls/hr IVPB ONCE ONE Rx#:[id number] Heparin Sod,Pork in 0.45% 26.342 203.481 NaCl 25,000 unit In 0.45 % NaCl 1 250ml.bag @ 10. 661 UNITS/KG/HR 10 mls/hr IV .Q24H [facility] Rx#: [id number] Norepinephrine 8 mg In 50.938 78.590 Sodium Chloride 0.9% 250 ml @ 0.03 MCG/KG/MIN 5. 445 mls/hr IV .Q24H [facility] Rx#:[id number] Vasopressin 20 unit In 77.240 Sodium Chloride 0.9% 50 ml @ 0.03 UNITS/MIN 4.59 mls/hr IV .Q11H7M [facility] Rx# :[id number] Tube Feeding 689 583 313 Other 90 90 60 Output: Urine 612 892 1692 Stool 150 Other: Voiding Method Indwelling Catheter Indwelling Catheter ABP, PAP, CO, CI - Last Documented Arterial Blood Pressure 95/53 - Labs CBC & Chem 7: 12/13/23 05:04 12/13/23 02:28 Labs: Abnormal Lab Results - Last 24 Hours (Table) 12/12/23 12/12/23 12/12/23 Range/Units 14:18 14:18 17:59 WBC (3.8-10.6) k/uL RBC (3.80-5.40) m/uL Hgb (11.4-16.0) gm/dL Hct (34.0-46.0) % RDW (11.5-15.5) % Neutrophils # (1.3-7.7) k/uL APTT 52.5 H (22.0-30.0) sec Potassium 2.4 L* (3.5-5.1) mmol/L Chloride (98-107) mmol/L BUN (7-17) mg/dL Creatinine (0.52-1.04) mg/dL Glucose (74-99) mg/dL POC Glucose (mg/dL) 115 H (70-110) mg/dL Calcium (8.4-10.2) mg/dL 12/13/23 12/13/23 12/13/23 Range/Units 01:08 02:28 05:04 WBC 15.1 H (3.8-10.6) k/uL RBC 3.21 L (3.80-5.40) m/uL Hgb 8.6 L (11.4-16.0) gm/dL Hct 26.3 L (34.0-46.0) % RDW 21.7 H (11.5-15.5) % Neutrophils # 12.9 H (1.3-7.7) k/uL APTT (22.0-30.0) sec Potassium 5.4 H (3.5-5.1) mmol/L Chloride 111 H (98-107) mmol/L BUN 29 H (7-17) mg/dL Creatinine 0.40 L (0.52-1.04) mg/dL Glucose 113 H (74-99) mg/dL POC Glucose (mg/dL) 112 H (70-110) mg/dL Calcium 7.0 L (8.4-10.2) mg/dL 12/13/23 12/13/23 Range/Units 08:20 12:15 WBC (3.8-10.6) k/uL RBC (3.80-5.40) m/uL Hgb (11.4-16.0) gm/dL Hct (34.0-46.0) % RDW (11.5-15.5) % Neutrophils # (1.3-7.7) k/uL APTT 35.0 H (22.0-30.0) sec Potassium (3.5-5.1) mmol/L Chloride (98-107) mmol/L BUN (7-17) mg/dL Creatinine (0.52-1.04) mg/dL Glucose (74-99) mg/dL POC Glucose (mg/dL) 113 H (70-110) mg/dL Calcium (8.4-10.2) mg/dL Microbiology - Last 24 Hours (Table) 12/10/23 07:20 Fungal Culture - Preliminary Bronchoalviolar Lavage - Left Romelia albicans 12/09/23 16:45 Gram Stain - Final Aspirate Body Fluid Culture - Final Romelia albicans 12/10/23 07:20 Gram Stain - Final Bronchoalviolar Lavage - Left Bronchial Washings Culture - Final Romelia albicans
--- NOTE | 2023-12-13 15:43 | P.PN ---
Subjective Progress Note Date: 12/13/23 Atrial fibrillation This is a 73-year-old female patient was admitted to the hospital initially with perforated diverticulitis complicated by Colocutaneous fistula and subsequently she underwent surgery. The surgery was complicated by cardiogenic shock. The patient currently is on 2 vasopressors including vasopressin's as well as norepinephrine. We initially seen the patient and signed off on her before. We saw her for preop cardiac assessment for noncardiac surgery. We requested to see the patient again because she developed atrial fibrillation with RVR. Her pressure continues to be low. She was started on amiodarone IV which I would agree on. She also was started on heparin IV which I would agree on. The echo during the hospital stay showed mildly impaired LV function with EF around 45%. Another echo was requested and performed and we are in process to have the results. The examination is remarkable for the patient being intubated on mechanical ventilation currently on 2 vasopressors as well as regular rate and rhythm with a distant heart sounds and diminished breathing sounds bilaterally Progress note 12/11/23 BP 104/45, heart rate 85 bpm. Patient intermittently goes into atrial fibrillation on and off but does not sustain in atrial fibrillation. Currently patient is in sinus rhythm. Hemoglobin 9.9, WBC 20, creatinine 0.5 Patient is still on norepinephrine and vasopressin. Will try to wean her off norepinephrine today. Patient has failed weaning trial today. Patient is no code 12/12/2023 Patient is on very low pressors norepinephrine 0.02, vasopressin 0.02. Patient has generalized swelling and was in positive fluid balance. She has received 1 dose of IV Lasix 40 mg yesterday. Blood pressure 113/40, pulse 66 bpm. Last night patient did go into atrial fibrillation with RVR for which she was placed on Cardizem drip. Since 10 PM yesterday it has been discontinued. Patient is currently getting sedation vacation and spontaneous breathing trial. No plans for extubation today as per pulmonary team Hemoglobin 8.6, creatinine 0.4, Metabolic alkalosis, ABG 7.5, bicarb 27, anion gap is -3, 12/13/2023 Patient remains on ventilator support. BP 101/54, heart rate 76, sinus rhythm. Intermittent atrial fibrillation On 0.01 mcg of norepinephrine. Negative fluid balance of 4 L yesterday. Made 3.3 L of urine yesterday. Responded well to IV diuretics. Hemoglobin 8.6, creatinine 0.4 Continues to have bicarb of 30, anion gap of -3. Impression S/p exploratory laparotomy, colectomy, diverting colostomy, debridement of cutaneous fistula New onset atrial fibrillation, currently sinus rhythm. Having paroxysms on and off Septic shock with gram-negative bacteremia Klebsiella pneumonia and urinary tract infection Ventilator dependent respiratory failure Metabolic alkalosis with negative anion gap Echocardiogram showed EF of 50%, mild to moderate MR, Plan Amiodarone to 200 mg twice daily due to low resting heart rate. Will continue amiodarone as patient still has paroxysms of atrial fibrillation which compromises her hemodynamics. Wean down vasopressin. Continue norepinephrine, continue to wean slowly Discontinue Cardizem. Only do Cardizem if heart rate is sustaining above 130 to 140 bpm. Metabolic alkalosis, vent management, sepsis management as per primary team and ICU team Agree with IV Lasix as needed for maintaining fluid balance. Currently appears clinically volume overloaded. Objective - Vital Signs Vital signs: Vital Signs Temp 98.2 F 12/13/23 12:00 Pulse 77 12/13/23 15:15 Resp 21 12/13/23 15:15 BP 101/50 12/13/23 15:15 Pulse Ox 99 12/13/23 15:15 FiO2 35 12/13/23 15:31 Intake & Output 12/12/23 12/13/23 12/13/23 18:59 06:59 18:59 Intake Total 1447.520 893 943.071 Output Total 605 1075 1675 Balance 842.520 -182 -731.929 Weight 95.9 kg 95.9 kg Intake: IV 384 220 210 0.9 260 220 110 Meropenem 1 gm In Sodium 100 100 Chloride 0.9% 100 ml @ 33 .3 mls/hr IVPB Q8HR [facility] Rx#:[id number] pressure bag 24 Intake, IV Titration 284.520 282.071 Amount Anidulafungin 200 mg In 130 Sodium Chloride 0.9% 200 ml @ 84 mls/hr IVPB ONCE ONE Rx#:[id number] Heparin Sod,Pork in 0.45% 26.342 203.481 NaCl 25,000 unit In 0.45 % NaCl 1 250ml.bag @ 10. 661 UNITS/KG/HR 10 mls/hr IV .Q24H [facility] Rx#: [id number] Norepinephrine 8 mg In 50.938 78.590 Sodium Chloride 0.9% 250 ml @ 0.03 MCG/KG/MIN 5. 445 mls/hr IV .Q24H [facility] Rx#:[id number] Vasopressin 20 unit In 77.240 Sodium Chloride 0.9% 50 ml @ 0.03 UNITS/MIN 4.59 mls/hr IV .Q11H7M [facility] Rx# :[id number] Tube Feeding 689 583 361 Other 90 90 90 Output: Urine 253 136 7489 Stool 150 Other: Voiding Method Indwelling Catheter Indwelling Catheter Indwelling Catheter ABP, PAP, CO, CI - Last Documented Arterial Blood Pressure 95/53 - Labs CBC & Chem 7: 12/13/23 05:04 12/13/23 02:28 Labs: Abnormal Lab Results - Last 24 Hours (Table) 12/12/23 12/13/23 12/13/23 Range/Units 17:59 01:08 02:28 WBC (3.8-10.6) k/uL RBC (3.80-5.40) m/uL Hgb (11.4-16.0) gm/dL Hct (34.0-46.0) % RDW (11.5-15.5) % Neutrophils # (1.3-7.7) k/uL APTT (22.0-30.0) sec Potassium 5.4 H (3.5-5.1) mmol/L Chloride 111 H (98-107) mmol/L BUN 29 H (7-17) mg/dL Creatinine 0.40 L (0.52-1.04) mg/dL Glucose 113 H (74-99) mg/dL POC Glucose (mg/dL) 115 H 112 H (70-110) mg/dL Calcium 7.0 L (8.4-10.2) mg/dL 12/13/23 12/13/23 12/13/23 Range/Units 05:04 08:20 12:15 WBC 15.1 H (3.8-10.6) k/uL RBC 3.21 L (3.80-5.40) m/uL Hgb 8.6 L (11.4-16.0) gm/dL Hct 26.3 L (34.0-46.0) % RDW 21.7 H (11.5-15.5) % Neutrophils # 12.9 H (1.3-7.7) k/uL APTT 35.0 H (22.0-30.0) sec Potassium (3.5-5.1) mmol/L Chloride (98-107) mmol/L BUN (7-17) mg/dL Creatinine (0.52-1.04) mg/dL Glucose (74-99) mg/dL POC Glucose (mg/dL) 113 H (70-110) mg/dL Calcium (8.4-10.2) mg/dL Microbiology - Last 24 Hours (Table) 12/10/23 07:20 Fungal Culture - Preliminary Bronchoalviolar Lavage - Left Romelia albicans 12/09/23 16:45 Gram Stain - Final Aspirate Body Fluid Culture - Final Romelia albicans 12/10/23 07:20 Gram Stain - Final Bronchoalviolar Lavage - Left Bronchial Washings Culture - Final Romelia albicans
--- NOTE | 2023-12-13 16:09 | P.PN ---
Subjective Progress Note Date: 12/13/23 Principal diagnosis: Reason for follow-up is complicated diverticulitis with colocutaneous fistula Patient is a 73-year-old female who was brought into the ER at [facility] for the patient complaining of generalized weakness patient noticed to have sacral pressure ulcer and also complicate diverticulitis with a fistula to the left lower abdominal wall.Patient was taken to the OR on 12/06/2023 and this patient was status post exploratory laparotomy with sigmoid colectomy takedown of the colocutaneous fistula left inguinal hernia repair and peritoneal lavage. On today's visit that is 12/13/2023, Patient is afebrile patient is currently on the vent FiO2 35% no significant purulent secretions through the ET on repeat changes reported by the nursing staff. Patient white count is down to 15.1, creatinine 0.40 Objective - Vital Signs Vital signs: Vital Signs Temp 97.9 F 12/13/23 08:00 Pulse 71 12/13/23 11:00 Resp 21 12/13/23 11:00 BP 96/48 12/13/23 11:00 Pulse Ox 96 12/13/23 11:00 FiO2 45 12/13/23 12:10 Intake & Output 12/12/23 12/13/23 12/13/23 18:59 06:59 18:59 Intake Total 1447.520 893 845.071 Output Total 605 1075 1375 Balance 842.520 -182 -529.929 Weight 95.9 kg Intake: IV 384 220 190 0.9 260 220 90 Meropenem 1 gm In Sodium 100 100 Chloride 0.9% 100 ml @ 33 .3 mls/hr IVPB Q8HR [facility] Rx#:[id number] pressure bag 24 Intake, IV Titration 284.520 282.071 Amount Anidulafungin 200 mg In 130 Sodium Chloride 0.9% 200 ml @ 84 mls/hr IVPB ONCE ONE Rx#:[id number] Heparin Sod,Pork in 0.45% 26.342 203.481 NaCl 25,000 unit In 0.45 % NaCl 1 250ml.bag @ 10. 661 UNITS/KG/HR 10 mls/hr IV .Q24H [facility] Rx#: [id number] Norepinephrine 8 mg In 50.938 78.590 Sodium Chloride 0.9% 250 ml @ 0.03 MCG/KG/MIN 5. 445 mls/hr IV .Q24H [facility] Rx#:[id number] Vasopressin 20 unit In 77.240 Sodium Chloride 0.9% 50 ml @ 0.03 UNITS/MIN 4.59 mls/hr IV .Q11H7M [facility] Rx# :[id number] Tube Feeding 689 583 313 Other 90 90 60 Output: Urine 587 131 2693 Stool 150 Other: Voiding Method Indwelling Catheter Indwelling Catheter ABP, PAP, CO, CI - Last Documented Arterial Blood Pressure 95/53 - Exam GENERAL DESCRIPTION: An elderly female intubated on the vent RESPIRATORY SYSTEM: Unlabored breathing , decreased breath sounds at bases HEART: S1 S2 regular rate and rhythm , ABDOMEN: Soft , no tenderness EXTREMITIES: No edema feet - Labs CBC & Chem 7: 12/13/23 05:04 12/13/23 02:28 Labs: Abnormal Lab Results - Last 24 Hours (Table) 12/12/23 12/12/23 12/12/23 Range/Units 14:18 14:18 17:59 WBC (3.8-10.6) k/uL RBC (3.80-5.40) m/uL Hgb (11.4-16.0) gm/dL Hct (34.0-46.0) % RDW (11.5-15.5) % Neutrophils # (1.3-7.7) k/uL APTT 52.5 H (22.0-30.0) sec Potassium 2.4 L* (3.5-5.1) mmol/L Chloride (98-107) mmol/L BUN (7-17) mg/dL Creatinine (0.52-1.04) mg/dL Glucose (74-99) mg/dL POC Glucose (mg/dL) 115 H (70-110) mg/dL Calcium (8.4-10.2) mg/dL 12/13/23 12/13/23 12/13/23 Range/Units 01:08 02:28 05:04 WBC 15.1 H (3.8-10.6) k/uL RBC 3.21 L (3.80-5.40) m/uL Hgb 8.6 L (11.4-16.0) gm/dL Hct 26.3 L (34.0-46.0) % RDW 21.7 H (11.5-15.5) % Neutrophils # 12.9 H (1.3-7.7) k/uL APTT (22.0-30.0) sec Potassium 5.4 H (3.5-5.1) mmol/L Chloride 111 H (98-107) mmol/L BUN 29 H (7-17) mg/dL Creatinine 0.40 L (0.52-1.04) mg/dL Glucose 113 H (74-99) mg/dL POC Glucose (mg/dL) 112 H (70-110) mg/dL Calcium 7.0 L (8.4-10.2) mg/dL 12/13/23 12/13/23 Range/Units 08:20 12:15 WBC (3.8-10.6) k/uL RBC (3.80-5.40) m/uL Hgb (11.4-16.0) gm/dL Hct (34.0-46.0) % RDW (11.5-15.5) % Neutrophils # (1.3-7.7) k/uL APTT 35.0 H (22.0-30.0) sec Potassium (3.5-5.1) mmol/L Chloride (98-107) mmol/L BUN (7-17) mg/dL Creatinine (0.52-1.04) mg/dL Glucose (74-99) mg/dL POC Glucose (mg/dL) 113 H (70-110) mg/dL Calcium (8.4-10.2) mg/dL Microbiology - Last 24 Hours (Table) 12/09/23 16:45 Gram Stain - Final Aspirate Body Fluid Culture - Final Romelia albicans 12/10/23 07:20 Gram Stain - Final Bronchoalviolar Lavage - Left Bronchial Washings Culture - Final Romelia albicans Assessment and Plan (1) Diverticulitis of intestine, part unspecified, without perforation or abscess without bleeding Current Visit: Yes Status: Acute Code(s): K57.92 - DVTRCLI OF INTEST, PART UNSP, W/O PERF OR ABSCESS W/O BLEED SNOMED Code(s): 274431514 (2) Leukocytosis Current Visit: Yes Status: Acute Code(s): D72.829 - ELEVATED WHITE BLOOD CELL COUNT, UNSPECIFIED SNOMED Code(s): 141589546 (3) Sepsis Current Visit: Yes Status: Acute Code(s): A41.9 - SEPSIS, UNSPECIFIED ORGANISM SNOMED Code(s): 29767317 (4) Gram-negative bacteremia Current Visit: Yes Status: Acute Code(s): R78.81 - BACTEREMIA SNOMED Code(s): 731006001967 Plan: 1patient with complicated diverticulitis with evidence of fistulous communication to the skin left lower quadrant area and concern for possible extension to the bladder, will need to cover for the polymicrobial jessie associated with such condition including enteric gram-negative both aerobes and anaerobes 2-patient also have a pressure ulcer but no significant surrounding cellulitis, wound care has been consulted continue local wound care per them 3gram-negative 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 with ID sensitivities pending, repeat blood culture has been negative so far 3-patient is status post extensive surgery including 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 5patient sputum culture grew Romelia bronchoscopy culture also grew Romelia as well as abdominal culture growing Romelia albicans 6-patient to continue with meropenem pending sensitivities of the gram-negative in the blood along with Eraxis and monitor clinical course closely Dictation was produced using [employer] dictation software. please excuse any grammatical, word or spelling errors. Time with Patient: Less than 30
[2023-12-13 18:48] LABS: Glucose,Whole Blood 138 mg/dL (70-110)
[2023-12-13 23:58] LABS: Glucose,Whole Blood 114 mg/dL (70-110)
[2023-12-14 06:44] LABS: Glucose,Whole Blood 110 mg/dL (70-110)
[2023-12-14 07:34] LABS: Anisocytosis Moderate; Basophils % (A) 0 %; Eosinophils # (A) 0.2 k/uL (0-0.7); Eosinophils % (A) 2 %; HCT 27.8 % (34.0-46.0); HGB 8.8 gm/dL (11.4-16.0); Hypochromasia Marked; Lymphocytes # (A) 1.3 k/uL (1.0-4.8); Lymphocytes % (A) 10 %; MCH 26.9 pg (25.0-35.0); MCHC 31.7 g/dL (31.0-37.0); Mean Platelet Volume 9.5; Microcytosis Slight; Monocytes # (A) 0.5 k/uL (0-1.0); Monocytes % (A) 4 %; Neutrophils # (A) 11.3 k/uL (1.3-7.7); Neutrophils % (A) 84 %; Platelet Count 271 k/uL (150-450); RBC 3.27 m/uL (3.80-5.40); RDW 22.2 % (11.5-15.5); WBC 13.5 k/uL (3.8-10.6)
[2023-12-14 08:09] LABS: ALT 18 U/L (4-34); AST 44 U/L (14-36); African American GFR (CKD) >90 (>60 ml/min/1.73 sqM); Albumin 1.7 g/dL (3.5-5.0); Alkaline Phosphatase 147 U/L (38-126); Anion Gap -2 mmol/L; Bilirubin, Delta 0.2 mg/dL (0.0-0.2); Blood Urea Nitrogen 29 mg/dL (7-17); Calcium 7.4 mg/dL (8.4-10.2); Carbon Dioxide 31 mmol/L (22-30); Chloride 110 mmol/L (98-107); Glucose 102 mg/dL (74-99); Non-African American GFR(CKD) >90 (>60 ml/min/1.73 sqM); Potassium 4.1 mmol/L (3.5-5.1); Sodium 139 mmol/L (137-145); Total Bilirubin 0.2 mg/dL (0.2-1.3); Total Protein 3.9 g/dL (6.3-8.2)
--- NOTE | 2023-12-14 09:17 | XR ---
EXAMINATION TYPE: XR chest 1V portable DATE OF EXAM: 12/14/2023 Comparison: 12/23/2023 Clinical History: 73-year-old female Intubated Findings: ET tube tip at the level of the medial clavicular heads. NG tube is in place. Sidehole just below the GE junction. Right IJ CVC tip mid SVC level. Left PICC tip lower SVC level. Patient rotated toward t he left. There is some volume loss in the left hemithorax with retrocardiac and left basilar opacity. Impression: Ongoing small left pleural effusion with prominent adjacent left basilar retrocardiac atelectasis and /or consolidation. Effusion slightly smaller from prior.
[2023-12-14] MEDS: FUROSEMIDE 10 MG/ML 4 ML VIAL IV STA (11:29)
--- NOTE | 2023-12-14 11:31 | P.PN ---
Subjective Progress Note Date: 12/14/23 Atrial fibrillation This is a 73-year-old female patient was admitted to the hospital initially with perforated diverticulitis complicated by Colocutaneous fistula and subsequently she underwent surgery. The surgery was complicated by cardiogenic shock. The patient currently is on 2 vasopressors including vasopressin's as well as norepinephrine. We initially seen the patient and signed off on her before. We saw her for preop cardiac assessment for noncardiac surgery. We requested to see the patient again because she developed atrial fibrillation with RVR. Her pressure continues to be low. She was started on amiodarone IV which I would agree on. She also was started on heparin IV which I would agree on. The echo during the hospital stay showed mildly impaired LV function with EF around 45%. Another echo was requested and performed and we are in process to have the results. The examination is remarkable for the patient being intubated on mechanical ventilation currently on 2 vasopressors as well as regular rate and rhythm with a distant heart sounds and diminished breathing sounds bilaterally Progress note 12/11/23 BP 104/45, heart rate 85 bpm. Patient intermittently goes into atrial fibrillation on and off but does not sustain in atrial fibrillation. Currently patient is in sinus rhythm. Hemoglobin 9.9, WBC 20, creatinine 0.5 Patient is still on norepinephrine and vasopressin. Will try to wean her off norepinephrine today. Patient has failed weaning trial today. Patient is no code 12/12/2023 Patient is on very low pressors norepinephrine 0.02, vasopressin 0.02. Patient has generalized swelling and was in positive fluid balance. She has received 1 dose of IV Lasix 40 mg yesterday. Blood pressure 113/40, pulse 66 bpm. Last night patient did go into atrial fibrillation with RVR for which she was placed on Cardizem drip. Since 10 PM yesterday it has been discontinued. Patient is currently getting sedation vacation and spontaneous breathing trial. No plans for extubation today as per pulmonary team Hemoglobin 8.6, creatinine 0.4, Metabolic alkalosis, ABG 7.5, bicarb 27, anion gap is -3, 12/13/2023 Patient remains on ventilator support. BP 101/54, heart rate 76, sinus rhythm. Intermittent atrial fibrillation On 0.01 mcg of norepinephrine. Negative fluid balance of 4 L yesterday. Made 3.3 L of urine yesterday. Responded well to IV diuretics. Hemoglobin 8.6, creatinine 0.4 Continues to have bicarb of 30, anion gap of -3. 12/14/2023 Patient was successfully extubated and currently is on BiPAP support. She is off pressors. BP 108/48, heart rate 77, currently in normal sinus rhythm. Clinically appears volume overloaded in bilateral lower extremity due to 3+ pitting edema I's and O's 2.7 L of urine last 24 hours. Creatinine 0.49 hemoglobin 8.8, WBC 13.5 Impression S/p exploratory laparotomy, colectomy, diverting colostomy, debridement of cutaneous fistula VDRF s/p extubation 12/14/2023 New onset atrial fibrillation, currently sinus rhythm. Having paroxysms on and off Septic shock with gram-negative bacteremia, resolving Klebsiella pneumonia and urinary tract infection Metabolic alkalosis with negative anion gap Echocardiogram showed EF of 50%, mild to moderate MR, Plan Amiodarone to 200 mg twice daily due to low resting heart rate. Reduce to 200mg daily from 12/19/2023. Monitor liver and thyroid function outpatient with PCP after discharge. Will continue amiodarone as patient still has paroxysms of atrial fibrillation which compromises her hemodynamics. Discontinue Cardizem. Only do Cardizem if heart rate is sustaining above 130 to 140 bpm. Metabolic alkalosis, vent management, sepsis management as per primary team and ICU team Agree with IV Lasix as needed for maintaining fluid balance. Currently appears clinically volume overloaded. Objective - Vital Signs Vital signs: Vital Signs Temp 98.0 F 12/14/23 08:00 Pulse 75 12/14/23 11:00 Resp 18 12/14/23 11:00 BP 103/51 12/14/23 11:00 Pulse Ox 94 L 12/14/23 11:00 FiO2 40 12/14/23 11:06 Intake & Output 12/13/23 12/14/23 12/14/23 18:59 06:59 18:59 Intake Total 1563.563 967.193 470 Output Total 2130 820 195 Balance -566.437 147.193 275 Weight 95.9 kg 95 kg Intake: IV 480 150 170 0.9 180 150 70 Anidulafungin 100 mg In 100 Sodium Chloride 0.9% 100 ml @ 84 mls/hr IVPB DAILY @1600 [facility] Rx#:[id number] Meropenem 1 gm In Sodium 200 100 Chloride 0.9% 100 ml @ 33 .3 mls/hr IVPB Q8HR [facility] Rx#:[id number] Intake, IV Titration 362.563 151.193 Amount Heparin Sod,Pork in 0.45% 283.973 151.193 NaCl 25,000 unit In 0.45 % NaCl 1 250ml.bag @ 10. 661 UNITS/KG/HR 10 mls/hr IV .Q24H [facility] Rx#: [id number] Norepinephrine 8 mg In 78.590 Sodium Chloride 0.9% 250 ml @ 0.03 MCG/KG/MIN 5. 445 mls/hr IV .Q24H [facility] Rx#:[id number] Tube Feeding 601 576 240 Other 120 90 60 Output: Urine 2130 645 195 Stool 175 Other: Voiding Method Indwelling Catheter Indwelling Catheter ABP, PAP, CO, CI - Last Documented Arterial Blood Pressure 95/53 - Labs CBC & Chem 7: 12/14/23 06:48 12/14/23 06:48 Labs: Abnormal Lab Results - Last 24 Hours (Table) 12/13/23 12/13/23 12/13/23 Range/Units 12:15 15:45 18:47 WBC (3.8-10.6) k/uL RBC (3.80-5.40) m/uL Hgb (11.4-16.0) gm/dL Hct (34.0-46.0) % RDW (11.5-15.5) % Neutrophils # (1.3-7.7) k/uL APTT 33.2 H (22.0-30.0) sec Chloride (98-107) mmol/L Carbon Dioxide (22-30) mmol/L BUN (7-17) mg/dL Creatinine (0.52-1.04) mg/dL Glucose (74-99) mg/dL POC Glucose (mg/dL) 113 H 138 H (70-110) mg/dL Calcium (8.4-10.2) mg/dL AST (14-36) U/L Alkaline Phosphatase (38-126) U/L Total Protein (6.3-8.2) g/dL Albumin (3.5-5.0) g/dL 12/13/23 12/14/23 12/14/23 Range/Units 23:56 01:02 06:48 WBC 13.5 H (3.8-10.6) k/uL RBC 3.27 L (3.80-5.40) m/uL Hgb 8.8 L (11.4-16.0) gm/dL Hct 27.8 L (34.0-46.0) % RDW 22.2 H (11.5-15.5) % Neutrophils # 11.3 H (1.3-7.7) k/uL APTT 56.6 H (22.0-30.0) sec Chloride (98-107) mmol/L Carbon Dioxide (22-30) mmol/L BUN (7-17) mg/dL Creatinine (0.52-1.04) mg/dL Glucose (74-99) mg/dL POC Glucose (mg/dL) 114 H (70-110) mg/dL Calcium (8.4-10.2) mg/dL AST (14-36) U/L Alkaline Phosphatase (38-126) U/L Total Protein (6.3-8.2) g/dL Albumin (3.5-5.0) g/dL 24 12/14/23 Range/Units 06:48 06:48 WBC (3.8-10.6) k/uL RBC (3.80-5.40) m/uL Hgb (11.4-16.0) gm/dL Hct (34.0-46.0) % RDW (11.5-15.5) % Neutrophils # (1.3-7.7) k/uL APTT 44.0 H (22.0-30.0) sec Chloride 110 H (98-107) mmol/L Carbon Dioxide 31 H (22-30) mmol/L BUN 29 H (7-17) mg/dL Creatinine 0.49 L (0.52-1.04) mg/dL Glucose 102 H (74-99) mg/dL POC Glucose (mg/dL) (70-110) mg/dL Calcium 7.4 L (8.4-10.2) mg/dL AST 44 H (14-36) U/L Alkaline Phosphatase 147 H (38-126) U/L Total Protein 3.9 L (6.3-8.2) g/dL Albumin 1.7 L (3.5-5.0) g/dL Microbiology - Last 24 Hours (Table) 12/08/23 08:46 Blood Culture - Final Blood 12/10/23 07:20 Fungal Culture - Preliminary Bronchoalviolar Lavage - Left Romelia albicans
[2023-12-14 11:33] LABS: Glucose,Whole Blood 114 mg/dL (70-110)
--- NOTE | 2023-12-14 11:43 | P.PN ---
Subjective Progress Note Date: 12/14/23 Principal diagnosis: Abdominal sepsis, diverticulitis, gram-negative bacteremia This is a 74-year-old female patient who was brought into the intensive care unit after an extensive abdominal surgery. The patient underwent exploratory laparotomy and sigmoid colectomy and diverging colostomy. The patient was emergently taken to the operating room this afternoon as the patient was becoming hypotensive and she had developed persistent leukocytosis intermittent fevers consistent with sepsis and septic shock. The patient was also becoming hypotensive despite being resuscitated with IV fluids and the patient preoperatively received a total of 3 L of IV fluids. An emergent surgical exploration was indicated. 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 At this point in time, the patient is sedated and the patient is currently on propofol. She is intubated on mechanical ventilator and she is on assist- control mode at a rate of 12, tidal volume of 400, FiO2 of 100% and a PEEP of 5. Chest x-ray shows a right IJ triple-lumen catheter. ET tube is in good location. No airspace disease or consolidation. The blood gases showed a pH of 7.22 with a pCO2 of 51 and pO2 of 255. The patient is currently on no pressors and urine output is quite diminished in the order of 10 to 20 cc since arrival from the operating room. The patient is on IV cefepime and Flagyl. Received a total of 2 unit PRBC intraop 12/07/2023, I am seeing the patient for a follow-up in the intensive care unit. The patient is currently postop day #1. The patient remains intubated on the mechanical ventilator. This morning, the patient is on propofol which is running at 30 mcg/kg/min. She was resuscitated with IV fluids. She was maintained on normal saline at rate of 150 cc an hour and norepinephrine was also added overnight and currently norepinephrine is running at 0.07 mcg/kg/min. Her urine output is in the order of 10 to 20 cc an hour. Overall fluid balance over the past 24 hours has been +3.6 L. The patient remains on a combination of cefepime and Flagyl. The blood work from today shows a WBC count of 37.4, hemoglobin 10.7 and platelet count of 499. BUN is at 15 with a creatinine of 0.8. Sodium is at 143 from yesterday. Repeat electrolytes are still pending for now. Meanwhile, the patient remains intubated on mechanical ventilator. This morning, she is on assist-control mode at rate of 24, tidal volume of 400, FiO2 is at 55% with a PEEP of 5. The blood gas shows a pH of 7.38 with a pCO2 of 31 and pO2 of 119. Review of the chest x-ray from this morning shows adequate positioning of the orotracheal tube. This may need to be pushed in by 1 cm. The patient has a small atelectasis/left-sided pleural effusion. Otherwise, the right lung is essentially clear at this point in time. Antibiotic coverage includes a combination of cefepime and Flagyl. The patient will need Dilaudid for pain control. She is on heparin subcu for DVT prophy laxis. She is resting comfortably in bed. No other significant events overnight. Currently she is afebrile. The wound VAC is in place. Colostomy site is not fully functional at this point in time. Abdomen is soft. 12/08/2023, the patient remains intubated on mechanical ventilator and she is in the intensive care unit postop day #2. The patient remains on a mechanical ventilator. She is currently on assist-control mode with rate of 24, tidal volume of 400, FiO2 of 50% with a PEEP of 5. The blood gases from this morning showed a pH of 7.28 with a pCO2 of 32 and pO2 of 105. The chest x-ray was reviewed and shows evidence of left basilar effusion/atelectasis. Orotracheal tube is in good location. The patient is triple-lumen catheter in her right IJ. Unfortunately, at around 3 AM this morning, the patient went into A-fib RVR and the patient became profoundly hypotensive. The patient progressively required higher dose of norepinephrine and currently norepinephrine is running at 0.2 mcg/kg/min and her mean arterial pressure is around 64. At the same time, the patient received treatment for her new onset atrial fibrillation. She was given an amiodarone bolus and currently she is on amiodarone at 0.5 mg/min. Based on her underlying hypotension. The patient was thought to hemodynamically unstable with A-fib RVR. The patient received cardioversion on 3 separate occasions using 120 J, 150 J and 200 J. Those attempts failed and the patient remained in atrial fibrillation. Her current heart rate is running at around 150 beats a minute, irregular. Urine output has dropped and the patient is producing only 10 cc an hour. At the same time, the patient's white cell count is up to 33.3 with a hemoglobin 12.1 and platelet count of 412. NG tube is in place. Output is minimal. Abdomen remains soft. The wound VAC is still in place. There is some liquidy stool material in the colostomy bag. No abdominal distention. The patient has been developing progressive edema and upper extremities in the left lower extremity. 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 Rest of the electrolytes show a sodium level of 143, serum bicarb is down to 12, anion gap is at 6, BUN is at 17 with a creatinine of 0.8. Magnesium level is at 1.9 with a calcium level of 7.9. The patient remains on IV cefepime and Flagyl. Urine culture from 12/04/2023 was positive for Klebsiella pneumoniae. She is currently afebrile. Propofol is running at 35 mcg/kg/min. The patient has been adequately sedated for now. Patient was reevaluated today on 12/09/2023, remains intubated and mechanically ventilated. On assist-control rate of 24 tidal volume 400 FiO2 50% and PEEP of 5. ABG showed a pO2 of 128 pCO2 35 pH 7.39. His FiO2 was cut down to 40% instead of 50%. Patient remained on multiple drips including norepinephrine, 0.04 mcg/kg/min, propofol at 35 mcg/kg/min, vasopressin at 0.03 units/min, D5W with 3 A of bicarb running at 150 cc/h. Patient is receiving vancomycin and Merrem. Patient has a left IJ triple-lumen catheter and left radial arterial line. Urine is positive Klebsiella, blood cultures were noted to be also positive for gram-negative bacilli. Most likely Klebsiella. Patient is on Merrem and she is on vancomycin patient is now postoperative day #3. Patient received 2 units of packed RBCs, since admission, hemoglobin now is 9.8, hemoglobin went as low as 7.4 on 12/04 labs today showed PTT of 57.4, basic metabolic profile is normal except for low potassium of 3.0 bicarb is 16, renal profile is normal WBC count is 28.5 hemoglobin is 9.8 urine cultures are positive for Klebsiella pneumoniae. Nutrition hicks the patient is receiving vit al HP 10 cc/h. Patient remains in atrial fibrillation, rate seems to be reasonably controlled Patient was reevaluated today on 12/10/2023, remains in the ICU, intubated and mechanically ventilated. Earlier this morning I was made aware of the patient's chest x-ray showing complete collapse of the left lung, and tracheal deviation to the ipsilateral side. This was clearly consistent with mucous plugging involving the left mainstem bronchus. Hence the patient underwent bronchoscopy, suctioning of the mucous plugs, and bronchoalveolar lavage of the left upper lobe lingula and left lower lobe. Please refer to the full operative report regarding this procedure. Patient remains intubated, mechanically ventilated, she is on assist-control rate of 24 tidal volume 400 FiO2 is now 50% PEEP of 10 and I cut it down to 8. Patient remains on multiple drips including norepinephrine at 0.06 mcg/kg/min vasopressin at 0.04 units/h, bicarb drip which I have discontinued today, Cardizem drip at 5 mg/h. Patient is also on heparin drip, propofol at 15 mcg/kg/min. Antibiotics hicks remains on Merrem for Klebsiella infection involving urine and blood. Chest x-ray as noted above, patient had complete opacification of the left lung, however after bronchoscopy and BAL significant improvement was noted and aeration of left lung significantly improved. ABG this morning on 40% showed a pO2 of 55 pCO2 48 and pH of 7.39 BBC count is 19.7, improving hemoglobin is 9.1. Platelets 253. ASIC metabolic profile is normal and renal profile is normal Patient was placed today on 12/11/2023, remains in the ICU, intubated and mechanically ventilated, sedated. On assist-control rate of 24 tidal volume 400 FiO2 50% and PEEP of 8 patient is requiring hemodynamic support with vasopressin 0.04 units, norepinephrine at 0.03 mcg/kg/min, patient is nutritionally supported with vital HP at 53 mL/h. ABG showed a pO2 of 96 pCO2 39 pH of 7.48. Patient remains on vancomycin and Merrem, urine output is about 40 cc/h hence I recommended Lasix to be given today 40 mg IV push x 1. Patient has a functioning ostomy, and she continues to have a wound VAC in place. CODE STATUS has been changed to DNR, yesterday, the patient underwent a bronchoscopy for complete opacification of the left lung, cultures from the BAL are pending, on today's chest x-ray there is minimal atelectasis in the left midlung, left lung remains relatively fully expanded Patient was reevaluated today on 12/12/2023, remains in the ICU intubated and mechanically ventilated. Patient is still requiring pressors, still on assist- control rate of 24 tidal volume 400 FiO2 45% PEEP is 8 and I cut it down to 6 today. ABG showed a pO2 of 105 pCO2 37 pH of 7.52 patient has been off propofol for the last 24 hours, still receiving heparin, she is on vasopressin at 0.02, and on norepinephrine at 0.01 mcg/kg/min. Antibiotics hicks, patient remains on Merrem and Eraxis. Patient is arousable, opens her eyes, extremely weak, however she is able to squeeze hands only. Continues to have leukocytosis with WBC count of 16.1 hemoglobin is 8.6, basic metabolic profile is normal. Nutrition hicks, patient remains on vital HP at 53/53 cc/h. Plan today on this patient is to continue patient off any sedation, and hopefully give the patient a trial of pressure support and CPAP, I do not believe the patient is ready to be extubated, but will start at least at times of weaning trials with pressure support mode of mechanical ventilation Patient was evaluated today on 12/13/2023, remains in the ICU, intubated and mechanically ventilated, patient is on assist-control rate of 24 tidal volume 400 FiO2 45% and PEEP of 6. ABG was done this morning. Overall the patient has not shown any significant change in the last few days, remains off sedation, patient is arousable, follows simple instructions like squeezing hands and wiggling toes. Hence I plan to give the patient today a trial of pressure support of 12 and CPAP, patient is still requiring a tiny bit of norepinephrine at 0.01 mcg/kg/min, patient remains on vital HP at 53 cc/h, and on heparin drip. Cardiac hicks, patient is on Merrem. Patient looks edematous and swollen, I recommended Lasix 40 mg IV push x 1 today chest x-ray is showing small left pleural effusion and atelectasis.WBC count is 15.1 hemoglobin 8.6. Basic metabolic profile is normal. BUN and creatinine are normal. Patient presented today on 12/14/2023, patient remains in the ICU, remains intubated and mechanically ventilated, on assist-control rate of 24 tidal volume 400 FiO2 35% and PEEP of 6. ABG not done today. Patient remains on antibiotics in the form of Eraxis and Merrem.Patient had Romelia and bronchoalveolar lavage, and she had Klebsiella pneumonia in her urine chest x-ray continues to show some minimal left basilar atelectasis. WBC count is 13.5 hemoglobin is 8.8, PTT is 44 basic metabolic profile is normal renal profile is normal, patient is not requiring any pressors anymore. Continues to improve with intermittent Lasix and should be given more Lasix today. Patient went on pressure support and CPAP almost 8 hours yesterday, she was transitioned to assist-control mode of mechanical ventilation overnight, and this morning early this morning, she was placed back on pressure support and CPAP. Hence the patient will be extubated to BiPAP, and we will continue to monitor the patient in the ICU. Although patient's CODE STATUS has been changed to no code, and not to reintubate if she fails extubation Objective - Vital Signs Vital signs: Vital Signs Temp 98.0 F 12/14/23 08:00 Pulse 75 12/14/23 11:00 Resp 18 12/14/23 11:00 BP 103/51 12/14/23 11:00 Pulse Ox 94 L 12/14/23 11:00 FiO2 40 12/14/23 11:06 Intake & Output 12/13/23 12/14/23 12/14/23 18:59 06:59 18:59 Intake Total 1563.563 967.193 470 Output Total 2130 820 195 Balance -566.437 147.193 275 Weight 95.9 kg 95 kg Intake: IV 480 150 170 0.9 180 150 70 Anidulafungin 100 mg In 100 Sodium Chloride 0.9% 100 ml @ 84 mls/hr IVPB DAILY @1600 [facility] Rx#:[id number] Meropenem 1 gm In Sodium 200 100 Chloride 0.9% 100 ml @ 33 .3 mls/hr IVPB Q8HR [facility] Rx#:[id number] Intake, IV Titration 362.563 151.193 Amount Heparin Sod,Pork in 0.45% 283.973 151.193 NaCl 25,000 unit In 0.45 % NaCl 1 250ml.bag @ 10. 661 UNITS/KG/HR 10 mls/hr IV .Q24H [facility] Rx#: [id number] Norepinephrine 8 mg In 78.590 Sodium Chloride 0.9% 250 ml @ 0.03 MCG/KG/MIN 5. 445 mls/hr IV .Q24H [facility] Rx#:[id number] Tube Feeding 601 576 240 Other 120 90 60 Output: Urine 2130 645 195 Stool 175 Other: Voiding Method Indwelling Catheter Indwelling Catheter ABP, PAP, CO, CI - Last Documented Arterial Blood Pressure 95/53 - Exam General: Reveals 71-year-old female intubated mechanically ventilated, patient is awake, follows simple instructions. Skin: No rashes. Eye: Pupils are equal, round and reactive to light, extra-ocular movements are intact; there is normal conjunctiva bilaterally. Ears, nose, mouth and throat: There are moist mucous membranes and no oral lesions. Endotracheal tube is intact. Neck: The neck is supple, there is no tenderness or JVD. Cardiovascular: Distant S1-S2, no S3 gallop, no murmur. Respiratory: Slightly diminished breath sounds at the left base, no crackles rhonchi or wheezes Abdomen: Soft, nontender, no megaly, wound VAC is noted, colostomy is functional. Musculoskeletal: Right above-knee amputation is noted otherwise unremarkable. Swelling noted in both lower extremities Neurological: Awake, follows simple instructions. Psychiatric: Normal mood, flat affect, normal mental status for - Labs CBC & Chem 7: 12/14/23 06:48 12/14/23 06:48 Labs: Abnormal Lab Results - Last 24 Hours (Table) 12/13/23 12/13/23 12/13/23 Range/Units 12:15 15:45 18:47 WBC (3.8-10.6) k/uL RBC (3.80-5.40) m/uL Hgb (11.4-16.0) gm/dL Hct (34.0-46.0) % RDW (11.5-15.5) % Neutrophils # (1.3-7.7) k/uL APTT 33.2 H (22.0-30.0) sec Chloride (98-107) mmol/L Carbon Dioxide (22-30) mmol/L BUN (7-17) mg/dL Creatinine (0.52-1.04) mg/dL Glucose (74-99) mg/dL POC Glucose (mg/dL) 113 H 138 H (70-110) mg/dL Calcium (8.4-10.2) mg/dL AST (14-36) U/L Alkaline Phosphatase (38-126) U/L Total Protein (6.3-8.2) g/dL Albumin (3.5-5.0) g/dL 12/13/23 12/14/23 12/14/23 Range/Units 23:56 01:02 06:48 WBC 13.5 H (3.8-10.6) k/uL RBC 3.27 L (3.80-5.40) m/uL Hgb 8.8 L (11.4-16.0) gm/dL Hct 27.8 L (34.0-46.0) % RDW 22.2 H (11.5-15.5) % Neutrophils # 11.3 H (1.3-7.7) k/uL APTT 56.6 H (22.0-30.0) sec Chloride (98-107) mmol/L Carbon Dioxide (22-30) mmol/L BUN (7-17) mg/dL Creatinine (0.52-1.04) mg/dL Glucose (74-99) mg/dL POC Glucose (mg/dL) 114 H (70-110) mg/dL Calcium (8.4-10.2) mg/dL AST (14-36) U/L Alkaline Phosphatase (38-126) U/L Total Protein (6.3-8.2) g/dL Albumin (3.5-5.0) g/dL 12/14/23 12/14/23 12/14/23 Range/Units 06:48 06:48 11:32 WBC (3.8-10.6) k/uL RBC (3.80-5.40) m/uL Hgb (11.4-16.0) gm/dL Hct (34.0-46.0) % RDW (11.5-15.5) % Neutrophils # (1.3-7.7) k/uL APTT 44.0 H (22.0-30.0) sec Chloride 110 H (98-107) mmol/L Carbon Dioxide 31 H (22-30) mmol/L BUN 29 H (7-17) mg/dL Creatinine 0.49 L (0.52-1.04) mg/dL Glucose 102 H (74-99) mg/dL POC Glucose (mg/dL) 114 H (70-110) mg/dL Calcium 7.4 L (8.4-10.2) mg/dL AST 44 H (14-36) U/L Alkaline Phosphatase 147 H (38-126) U/L Total Protein 3.9 L (6.3-8.2) g/dL Albumin 1.7 L (3.5-5.0) g/dL Microbiology - Last 24 Hours (Table) 12/08/23 08:46 Blood Culture - Final Blood 12/10/23 07:20 Fungal Culture - Preliminary Bronchoalviolar Lavage - Left Romelia albicans Assessment and Plan Assessment: Impression: Status post exploratory laparotomy colectomy and diverting colostomy and debridement of cutaneous fistula postoperative day #8 Abdominal sepsis and septic shock New onset atrial fibrillation with RVR Gram-negative bacteremia Klebsiella pneumonia urinary tract infection Leukocytosis secondary to above, improving. 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 No need for norepinephrine today since the patient is hemodynamically stable, this was discontinued Continue Eraxis and Merrem Continue enteral feedings/nutritional support Continue amiodarone and heparin Continue GI prophylaxis Continue to hold sedation and narcotics especially after extubation. Patient remains critically ill. Critical care time is over 30 minutes Will continue to follow Time with Patient: Greater than 30
--- NOTE | 2023-12-14 12:15 | P.PN ---
Subjective This is a pleasant 73 years old female who presents to the emergency room for lower abdominal fistula drainage, associated with generalized weakness. Patient looks awake alert but tired looking, pale. Feels generally weak. N has mild generalized abdominal pain and tenderness. No rebound tenderness. Blood with malodorous left lower abdominal fistula drainage with fecal material coming out. Patient also with right rotation. Patient also with unstageable sacral pressure ulcer. With some evidence of cellulitis. Patient is mildly confused. But no headache or weakness in upper or lower patient was hypotensive with a blood pressure/42, currently slightly better 96/43. Potassium is low 2.9, WBC elevated 23,000, hemoglobin 7.4. Creatinine 0.7. Liver enzymes unremarkable. CT of the abdomen pelvis showing sigmoid diverticulitis and proctitis. 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 Please refer to the report for more details. Patient was ordered received normal saline boluses. Currently on Normosol at 130 mL/h She received 1 dose of Zosyn and started on Flagyl. We are going to add cefepime for gram-negative coverage. 12/05/2023 Patient is awake and alert, generally weak and tired, mildly drowsy Denies abdominal pain or tenderness, she has fistula in the left lower abdomen She denies chest pain or dyspnea. No headache dizziness weakness or numbness. No breathing difficulty. And currently she is saturating well on room air. Blood pressure is still on the low side.but is improving while on IV fluid Glucose 65 and her fluids changed to D5 normal saline at 1 30 mL/h She is currently covered with cefepime and IV Flagyl and IV Protonix She has leukocytosis of 23,000, hemoglobin stable 7.9, low potassium been replaced. Magnesium is normal 2.0. B12 541, Elevated ESR 75 and CRP 25 Patient at moderate risk for her multiple medical problems. Because of this ec hocardiogram was requested and cardiology consulted for preop evaluation. 12/06/2023 Patient remains awake and oriented, mildly lethargic Patient today was supposed to go for surgery to fix her enteric fistula Blood pressure was on the low side this morning I got a call from the bedside nurse blood pressure was 68/32, a bolus of normal saline is provided as well as midodrine Blood pressure a little low after first bolus, where going to give her another bolus of 1 L follow-up with the blood pressure. 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 Geophysical Drafter eval into the patient for preop assessment and there is no contraindication to proceed with surgery. Patient remains on normal saline with 30 mL/h, cefepime, IV Flagyl and IV Protonix 12/07/2023 Patient s/p sigmoid colectomy and taken down the fistula with peritoneal lavage, creatinine descending colostomy pouch with rectum Gabriel procedure by surgery team Postoperatively and perioperatively patient was hypotensive, after the procedure she got intubated and sent to the intensive care unit and started on pressors Patient remains on excessive hydration She is making about 10 to 20 mL of urine output She remains on broad-spectrum antibiotics with IV cefepime and Flagyl Patient labs and vitals are reviewed 12/08/2023 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 Patient was started on amiodarone and heparin drip Also patient abdomen soft but she is becoming more anuric She still intubated on mechanical ventilation with assist-control Her leukocytosis is worse at 33,000 urine cultures grewing Klebsiella. Blood cultures positive for gram negative bacilli Her antibiotics was adjusted to meropenem and IV vancomycin. Her fluids running normal saline changed to sodium bicarb at 150 mL/h She is still on IV Protonix Her albumin is low so they are going to give her 1 dose of albumin IV if no imp rovement 12/09/2023 Patient remains in the ICU intubated and sedated She was still on pressors this morning on Levophed at 0.09, bicarbonate drip at 150 mL also vasopressin 0.03. She still has wound VAC in his abdomen. Patient blood pressure started improving 115/45 Potassium 3.4, WBC trending down to 28,000, hemoglobin 9.8. Albumin is 1.5 and patient 2 more bags of albumin 25 g to support her system as she has anasarca and significant swelling of the lower extremities. Patient remains also on broad-spectrum antibiotics with IV vancomycin and meropenem. She is also on Protonix. Discussed with staff. 12/10/2023 pt remains in the icu intubated and sedated pt chest xray showing left hemilthorax collapse pt requiring pressors, planning to wean down if possible c'w treatment for a fib with amiodaron and heparin drip still on broad spectrum antibioitc 12/11/2023 Patient felt to be improving although she still intubated in the ICU in critical condition and followed closely by pulmonary/critical care team Levophed dose decreased from yesterday 0.09 down to 0.03. Bicarb drip was stopped. Vasopressin dose actually slightly increased from 0.03 up to 0.04. Heparin drip was continued. Patient continued on tube feeding Antibiotic with vancomycin and meropenem, Eraxis added today 12/12/2023 Patient remains intubated in the ICU Patient showing signs of improving gradually. She is requiring less pressors of Levophed today was down to 0.01, she was on vasopressin 0.04 trying to wean it down to 0.0 3 in the morning and see the response of the patient through the day. Her leukocytosis also coming down 20,000 down to 16,000, Patient continued on broad-spectrum antibiotics of meropenem, IV vancomycin and Eraxis. Also she is on oral amiodarone with cardiology following closely. 12/13/2023 Patient remains in the ICU intubated and sedated with pulmonary/critical care team following closely and help with the vent management. Actually today there were trying sedation holiday and patient has been waking up and follows simple commands. Patient could come off pressors today and her blood pressure remained stable. 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 Remains on IV vancomycin, meropenem and Eraxis 12/14/2023 Patient is still intubated in the ICU, she is off sedation. She open eyes to verbal commands and trying to follow commands. She is off pressors She remains on meropenem and Eraxis Patient significantly edematous His heart rate is controlled regarding his A-fib Objective - Vital Signs Vital signs: Vital Signs Temp 98.0 F 12/14/23 08:00 Pulse 75 12/14/23 11:00 Resp 18 12/14/23 11:00 BP 103/51 12/14/23 11:00 Pulse Ox 94 L 12/14/23 11:00 FiO2 40 12/14/23 11:06 Intake & Output 12/13/23 12/14/23 12/14/23 18:59 06:59 18:59 Intake Total 1563.563 967.193 470 Output Total 2130 820 195 Balance -566.437 147.193 275 Weight 95.9 kg 95 kg Intake: IV 480 150 170 0.9 180 150 70 Anidulafungin 100 mg In 100 Sodium Chloride 0.9% 100 ml @ 84 mls/hr IVPB DAILY @1600 [facility] Rx#:[id number] Meropenem 1 gm In Sodium 200 100 Chloride 0.9% 100 ml @ 33 .3 mls/hr IVPB Q8HR [facility] Rx#:[id number] Intake, IV Titration 362.563 151.193 Amount Heparin Sod,Pork in 0.45% 283.973 151.193 NaCl 25,000 unit In 0.45 % NaCl 1 250ml.bag @ 10. 661 UNITS/KG/HR 10 mls/hr IV .Q24H [facility] Rx#: [id number] Norepinephrine 8 mg In 78.590 Sodium Chloride 0.9% 250 ml @ 0.03 MCG/KG/MIN 5. 445 mls/hr IV .Q24H [facility] Rx#:[id number] Tube Feeding 601 576 240 Other 120 90 60 Output: Urine 2130 645 195 Stool 175 Other: Voiding Method Indwelling Catheter Indwelling Catheter ABP, PAP, CO, CI - Last Documented Arterial Blood Pressure 95/53 - Exam -GENERAL: The patient is intubated and sedated HEENT: Pupils are round and equally reacting to light. EOMI. No scleral icterus. No conjunctival pallor. Normocephalic, atraumatic. No pharyngeal erythema. No thyromegaly. CARDIOVASCULAR: S1 and S2 present. No murmurs, rubs, or gallops. PULMONARY: Chest is clear to auscultation, no wheezing , no crackles. -ABDOMEN: Soft, nontender, nondistended, normoactive bowel sounds. No palpable organomegaly. Left lower abdominal colostomy bag MUSCULOSKELETAL: No joint swelling or deformity. -EXTREMITIES: No cyanosis, clubbing, or pedal edema. Right knee amputation, old NEUROLOGICAL: Gross neurological examination did not reveal any focal deficits. SKIN: No rashes. no petechiae. - Labs CBC & Chem 7: 12/14/23 06:48 12/14/23 06:48 Labs: Abnormal Lab Results - Last 24 Hours (Table) 12/13/23 12/13/23 12/13/23 Range/Units 12:15 15:45 18:47 WBC (3.8-10.6) k/uL RBC (3.80-5.40) m/uL Hgb (11.4-16.0) gm/dL Hct (34.0-46.0) % RDW (11.5-15.5) % Neutrophils # (1.3-7.7) k/uL APTT 33.2 H (22.0-30.0) sec Chloride (98-107) mmol/L Carbon Dioxide (22-30) mmol/L BUN (7-17) mg/dL Creatinine (0.52-1.04) mg/dL Glucose (74-99) mg/dL POC Glucose (mg/dL) 113 H 138 H (70-110) mg/dL Calcium (8.4-10.2) mg/dL AST (14-36) U/L Alkaline Phosphatase (38-126) U/L Total Protein (6.3-8.2) g/dL Albumin (3.5-5.0) g/dL 12/13/23 12/14/23 12/14/23 Range/Units 23:56 01:02 06:48 WBC 13.5 H (3.8-10.6) k/uL RBC 3.27 L (3.80-5.40) m/uL Hgb 8.8 L (11.4-16.0) gm/dL Hct 27.8 L (34.0-46.0) % RDW 22.2 H (11.5-15.5) % Neutrophils # 11.3 H (1.3-7.7) k/uL APTT 56.6 H (22.0-30.0) sec Chloride (98-107) mmol/L Carbon Dioxide (22-30) mmol/L BUN (7-17) mg/dL Creatinine (0.52-1.04) mg/dL Glucose (74-99) mg/dL POC Glucose (mg/dL) 114 H (70-110) mg/dL Calcium (8.4-10.2) mg/dL AST (14-36) U/L Alkaline Phosphatase (38-126) U/L Total Protein (6.3-8.2) g/dL Albumin (3.5-5.0) g/dL 12/14/23 12/14/23 12/14/23 Range/Units 06:48 06:48 11:32 WBC (3.8-10.6) k/uL RBC (3.80-5.40) m/uL Hgb (11.4-16.0) gm/dL Hct (34.0-46.0) % RDW (11.5-15.5) % Neutrophils # (1.3-7.7) k/uL APTT 44.0 H (22.0-30.0) sec Chloride 110 H (98-107) mmol/L Carbon Dioxide 31 H (22-30) mmol/L BUN 29 H (7-17) mg/dL Creatinine 0.49 L (0.52-1.04) mg/dL Glucose 102 H (74-99) mg/dL POC Glucose (mg/dL) 114 H (70-110) mg/dL Calcium 7.4 L (8.4-10.2) mg/dL AST 44 H (14-36) U/L Alkaline Phosphatase 147 H (38-126) U/L Total Protein 3.9 L (6.3-8.2) g/dL Albumin 1.7 L (3.5-5.0) g/dL Microbiology - Last 24 Hours (Table) 12/08/23 08:46 Blood Culture - Final Blood 12/10/23 07:20 Fungal Culture - Preliminary Bronchoalviolar Lavage - Left Romelia albicans Assessment and Plan Assessment: Acute sigmoid sigmoid colitis, diverticulitis with proctitis. With multiple entero-cutaneous and entero-vesical fistulas, including to the left lower abdominal wall. Septic shock Acute hypoxic respiratory failure requiring intubation and mechanical ventilation Gram-negative bacteremia A-fib and RVR Acute kidney injury, oliguric Acute anemia, unknown baseline, chronic microcytic Full-thickness sacral pressure ulcer, with no obvious osseous erosions. Metabolic encephalopathy, with possible elements of delirium Bilateral adrenal nodule, recommend follow-up CT in 3 months. Acute urinary tract infection/cystitis. Culture is growing Klebsiella Anasarca With severe hypoalbuminemia Plan: Keep monitoring off IV fluids Continue with antibiotic, meropenem and IV vancomycin, Eraxis ID team on the case Continue with wound care and wound VAC in place with surgery team following closely Patient remains intubated on mechanical ventilation with pulmonary/critical care team consult Cardiology team following closely. Continue with heparin drip and oral amiodarone IV Protonix Monitor and follow-up blood culture DVT prophylaxis: heparin, SCD GI prophylaxis: Protonix Prognosis guarded,
--- NOTE | 2023-12-14 13:20 | P.PN ---
Subjective Progress Note Date: 12/14/23 Objective - Vital Signs Vital signs: Vital Signs Temp 98.0 F 12/14/23 08:00 Pulse 75 12/14/23 11:00 Resp 18 12/14/23 11:00 BP 103/51 12/14/23 11:00 Pulse Ox 94 L 12/14/23 11:00 FiO2 40 12/14/23 11:06 Intake & Output 12/13/23 12/14/23 12/14/23 18:59 06:59 18:59 Intake Total 1563.563 967.193 470 Output Total 2130 820 195 Balance -566.437 147.193 275 Weight 95.9 kg 95 kg Intake: IV 480 150 170 0.9 180 150 70 Anidulafungin 100 mg In 100 Sodium Chloride 0.9% 100 ml @ 84 mls/hr IVPB DAILY @1600 [facility] Rx#:[id number] Meropenem 1 gm In Sodium 200 100 Chloride 0.9% 100 ml @ 33 .3 mls/hr IVPB Q8HR [facility] Rx#:[id number] Intake, IV Titration 362.563 151.193 Amount Heparin Sod,Pork in 0.45% 283.973 151.193 NaCl 25,000 unit In 0.45 % NaCl 1 250ml.bag @ 10. 661 UNITS/KG/HR 10 mls/hr IV .Q24H [facility] Rx#: [id number] Norepinephrine 8 mg In 78.590 Sodium Chloride 0.9% 250 ml @ 0.03 MCG/KG/MIN 5. 445 mls/hr IV .Q24H [facility] Rx#:[id number] Tube Feeding 601 576 240 Other 120 90 60 Output: Urine 2130 645 195 Stool 175 Other: Voiding Method Indwelling Catheter Indwelling Catheter ABP, PAP, CO, CI - Last Documented Arterial Blood Pressure 95/53 - Exam gen: nad cv: rrr pul: non labored currently on bipap abd: soft, ostomy pink patent and producing ext: b/l edema - Labs CBC & Chem 7: 12/14/23 06:48 12/14/23 06:48 Labs: Abnormal Lab Results - Last 24 Hours (Table) 12/13/23 12/13/23 12/13/23 Range/Units 15:45 18:47 23:56 WBC (3.8-10.6) k/uL RBC (3.80-5.40) m/uL Hgb (11.4-16.0) gm/dL Hct (34.0-46.0) % RDW (11.5-15.5) % Neutrophils # (1.3-7.7) k/uL APTT 33.2 H (22.0-30.0) sec Chloride (98-107) mmol/L Carbon Dioxide (22-30) mmol/L BUN (7-17) mg/dL Creatinine (0.52-1.04) mg/dL Glucose (74-99) mg/dL POC Glucose (mg/dL) 138 H 114 H (70-110) mg/dL Calcium (8.4-10.2) mg/dL AST (14-36) U/L Alkaline Phosphatase (38-126) U/L Total Protein (6.3-8.2) g/dL Albumin (3.5-5.0) g/dL 12/14/23 12/14/23 12/14/23 Range/Units 01:02 06:48 06:48 WBC 13.5 H (3.8-10.6) k/uL RBC 3.27 L (3.80-5.40) m/uL Hgb 8.8 L (11.4-16.0) gm/dL Hct 27.8 L (34.0-46.0) % RDW 22.2 H (11.5-15.5) % Neutrophils # 11.3 H (1.3-7.7) k/uL APTT 56.6 H (22.0-30.0) sec Chloride 110 H (98-107) mmol/L Carbon Dioxide 31 H (22-30) mmol/L BUN 29 H (7-17) mg/dL Creatinine 0.49 L (0.52-1.04) mg/dL Glucose 102 H (74-99) mg/dL POC Glucose (mg/dL) (70-110) mg/dL Calcium 7.4 L (8.4-10.2) mg/dL AST 44 H (14-36) U/L Alkaline Phosphatase 147 H (38-126) U/L Total Protein 3.9 L (6.3-8.2) g/dL Albumin 1.7 L (3.5-5.0) g/dL 12/14/23 12/14/23 Range/Units 06:48 11:32 WBC (3.8-10.6) k/uL RBC (3.80-5.40) m/uL Hgb (11.4-16.0) gm/dL Hct (34.0-46.0) % RDW (11.5-15.5) % Neutrophils # (1.3-7.7) k/uL APTT 44.0 H (22.0-30.0) sec Chloride (98-107) mmol/L Carbon Dioxide (22-30) mmol/L BUN (7-17) mg/dL Creatinine (0.52-1.04) mg/dL Glucose (74-99) mg/dL POC Glucose (mg/dL) 114 H (70-110) mg/dL Calcium (8.4-10.2) mg/dL AST (14-36) U/L Alkaline Phosphatase (38-126) U/L Total Protein (6.3-8.2) g/dL Albumin (3.5-5.0) g/dL Microbiology - Last 24 Hours (Table) 12/08/23 08:46 Blood Culture - Final Blood 12/10/23 07:20 Fungal Culture - Preliminary Bronchoalviolar Lavage - Left Romelia albicans Assessment and Plan (1) Diverticulitis Current Visit: Yes Status: Acute Code(s): K57.92 - DVTRCLI OF INTEST, PART UNSP, W/O PERF OR ABSCESS W/O BLEED SNOMED Code(s): 595812559 Plan: 73 pod #[address] [place] -recently extubated currently on bipap -ostomy functioning, no issues -drains has minimal output -continue tube feeding
--- NOTE | 2023-12-14 13:29 | P.PN ---
Subjective Progress Note Date: 12/14/23 Principal diagnosis: Reason for follow-up is complicated diverticulitis with colocutaneous fistula Patient is a 73-year-old female who was brought into the ER at [facility] for the patient complaining of generalized weakness patient noticed to have sacral pressure ulcer and also complicate diverticulitis with a fistula to the left lower abdominal wall.Patient was taken to the OR on 12/06/2023 and this patient was status post exploratory laparotomy with sigmoid colectomy takedown of the colocutaneous fistula left inguinal hernia repair and peritoneal lavage. On today's evaluation that is 12/14/2023, patient did have low-grade fever 100.8 F last night however the patient is afebrile this morning, patient has been extubated this morning patient is currently breathing comfortably on nasal cannula oxygen slightly lethargic and not a very good historian no vomiting diarrhea or any other changes reported by the nursing staff. Patient white count is down to 13.5 creatinine 0.49 Objective - Vital Signs Vital signs: Vital Signs Temp 98.0 F 12/14/23 08:00 Pulse 75 12/14/23 11:00 Resp 18 12/14/23 11:00 BP 103/51 12/14/23 11:00 Pulse Ox 94 L 12/14/23 11:00 FiO2 40 12/14/23 11:06 Intake & Output 12/13/23 12/14/23 12/14/23 18:59 06:59 18:59 Intake Total 1563.563 967.193 666 Output Total 2130 820 795 Balance -566.437 147.193 -129 Weight 95.9 kg 95 kg Intake: IV 480 150 210 0.9 180 150 110 Anidulafungin 100 mg In 100 Sodium Chloride 0.9% 100 ml @ 84 mls/hr IVPB DAILY @1600 [facility] Rx#:[id number] Meropenem 1 gm In Sodium 200 100 Chloride 0.9% 100 ml @ 33 .3 mls/hr IVPB Q8HR [facility] Rx#:[id number] Intake, IV Titration 362.563 151.193 Amount Heparin Sod,Pork in 0.45% 283.973 151.193 NaCl 25,000 unit In 0.45 % NaCl 1 250ml.bag @ 10. 661 UNITS/KG/HR 10 mls/hr IV .Q24H [facility] Rx#: [id number] Norepinephrine 8 mg In 78.590 Sodium Chloride 0.9% 250 ml @ 0.03 MCG/KG/MIN 5. 445 mls/hr IV .Q24H [facility] Rx#:[id number] Tube Feeding 601 576 336 Other 120 90 120 Output: Urine 2130 645 795 Stool 175 Other: Voiding Method Indwelling Catheter Indwelling Catheter ABP, PAP, CO, CI - Last Documented Arterial Blood Pressure 95/53 - Exam GENERAL DESCRIPTION: An elderly female lying in bed in no distress RESPIRATORY SYSTEM: Unlabored breathing , decreased breath sounds at bases HEART: S1 S2 regular rate and rhythm , ABDOMEN: Soft , no tenderness EXTREMITIES: No edema feet - Labs CBC & Chem 7: 12/14/23 06:48 12/14/23 06:48 Labs: Abnormal Lab Results - Last 24 Hours (Table) 12/13/23 12/13/23 12/13/23 Range/Units 15:45 18:47 23:56 WBC (3.8-10.6) k/uL RBC (3.80-5.40) m/uL Hgb (11.4-16.0) gm/dL Hct (34.0-46.0) % RDW (11.5-15.5) % Neutrophils # (1.3-7.7) k/uL APTT 33.2 H (22.0-30.0) sec Chloride (98-107) mmol/L Carbon Dioxide (22-30) mmol/L BUN (7-17) mg/dL Creatinine (0.52-1.04) mg/dL Glucose (74-99) mg/dL POC Glucose (mg/dL) 138 H 114 H (70-110) mg/dL Calcium (8.4-10.2) mg/dL AST (14-36) U/L Alkaline Phosphatase (38-126) U/L Total Protein (6.3-8.2) g/dL Albumin (3.5-5.0) g/dL 12/14/23 12/14/23 12/14/23 Range/Units 01:02 06:48 06:48 WBC 13.5 H (3.8-10.6) k/uL RBC 3.27 L (3.80-5.40) m/uL Hgb 8.8 L (11.4-16.0) gm/dL Hct 27.8 L (34.0-46.0) % RDW 22.2 H (11.5-15.5) % Neutrophils # 11.3 H (1.3-7.7) k/uL APTT 56.6 H (22.0-30.0) sec Chloride 110 H (98-107) mmol/L Carbon Dioxide 31 H (22-30) mmol/L BUN 29 H (7-17) mg/dL Creatinine 0.49 L (0.52-1.04) mg/dL Glucose 102 H (74-99) mg/dL POC Glucose (mg/dL) (70-110) mg/dL Calcium 7.4 L (8.4-10.2) mg/dL AST 44 H (14-36) U/L Alkaline Phosphatase 147 H (38-126) U/L Total Protein 3.9 L (6.3-8.2) g/dL Albumin 1.7 L (3.5-5.0) g/dL 12/14/23 12/14/23 Range/Units 06:48 11:32 WBC (3.8-10.6) k/uL RBC (3.80-5.40) m/uL Hgb (11.4-16.0) gm/dL Hct (34.0-46.0) % RDW (11.5-15.5) % Neutrophils # (1.3-7.7) k/uL APTT 44.0 H (22.0-30.0) sec Chloride (98-107) mmol/L Carbon Dioxide (22-30) mmol/L BUN (7-17) mg/dL Creatinine (0.52-1.04) mg/dL Glucose (74-99) mg/dL POC Glucose (mg/dL) 114 H (70-110) mg/dL Calcium (8.4-10.2) mg/dL AST (14-36) U/L Alkaline Phosphatase (38-126) U/L Total Protein (6.3-8.2) g/dL Albumin (3.5-5.0) g/dL Microbiology - Last 24 Hours (Table) 12/08/23 08:46 Blood Culture - Final Blood 12/10/23 07:20 Fungal Culture - Preliminary Bronchoalviolar Lavage - Left Romelia albicans Assessment and Plan (1) Diverticulitis of intestine, part unspecified, without perforation or abscess without bleeding Current Visit: Yes Status: Acute Code(s): K57.92 - DVTRCLI OF INTEST, PART UNSP, W/O PERF OR ABSCESS W/O BLEED SNOMED Code(s): 645317026 (2) Leukocytosis Current Visit: Yes Status: Acute Code(s): D72.829 - ELEVATED WHITE BLOOD CELL COUNT, UNSPECIFIED SNOMED Code(s): 767267842 (3) Sepsis Current Visit: Yes Status: Acute Code(s): A41.9 - SEPSIS, UNSPECIFIED ORGANISM SNOMED Code(s): 50376358 (4) Gram-negative bacteremia Current Visit: Yes Status: Acute Code(s): R78.81 - BACTEREMIA SNOMED Code(s): 449752259956 Plan: 1patient with complicated diverticulitis with evidence of fistulous communication to the skin left lower quadrant area and concern for possible extension to the bladder, will need to cover for the polymicrobial jessie associated with such condition including enteric gram-negative both aerobes and anaerobes 2-patient also have a pressure ulcer but no significant surrounding cellulitis, wound care has been consulted continue local wound care per them 3gram-negative 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 with ID sensitivities pending, repeat blood culture has been negative so far 3-patient is status post extensive surgery including 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 5patient sputum culture grew Romelia bronchoscopy culture also grew Romelia as well as abdominal culture growing Romelia albicans 6-patient seem to be slowly clinically improving and has been extubated white count is trending down, patient to continue with meropenem pending sensitivities of the gram-negative in the blood along with Eraxis and continue supportive care Dictation was produced using [employer] dictation software. please excuse any grammatical, word or spelling errors. Time with Patient: Less than 30
[2023-12-14 18:02] LABS: Glucose,Whole Blood 118 mg/dL (70-110)
[2023-12-14 23:26] LABS: Glucose,Whole Blood 107 mg/dL (70-110)
[2023-12-15 05:23] LABS: Anisocytosis Moderate; Basophils % (A) 0 %; Eosinophils # (A) 0.3 k/uL (0-0.7); Eosinophils % (A) 3 %; HCT 27.8 % (34.0-46.0); HGB 8.6 gm/dL (11.4-16.0); Hypochromasia Marked; Lymphocytes # (A) 1.2 k/uL (1.0-4.8); Lymphocytes % (A) 11 %; MCH 26.8 pg (25.0-35.0); MCHC 30.9 g/dL (31.0-37.0); MCV 86.5 fL (80.0-100.0); Mean Platelet Volume 9.5; Microcytosis Slight; Monocytes # (A) 0.5 k/uL (0-1.0); Monocytes % (A) 4 %; Neutrophils # (A) 8.8 k/uL (1.3-7.7); Neutrophils % (A) 81 %; Platelet Count 291 k/uL (150-450); RBC 3.21 m/uL (3.80-5.40)
[2023-12-15 05:37] LABS: Glucose,Whole Blood 109 mg/dL (70-110)
[2023-12-15 05:39] LABS: African American GFR (CKD) >90 (>60 ml/min/1.73 sqM); Anion Gap -1 mmol/L; Blood Urea Nitrogen 28 mg/dL (7-17); Calcium 7.5 mg/dL (8.4-10.2); Carbon Dioxide 30 mmol/L (22-30); Chloride 111 mmol/L (98-107); Glucose 100 mg/dL (74-99); Non-African American GFR(CKD) >90 (>60 ml/min/1.73 sqM); Potassium 3.6 mmol/L (3.5-5.1); Sodium 140 mmol/L (137-145)
[2023-12-15] MEDS: POTASSIUM BICARBONATE/CIT AC 20 MEQ TABLET.EFF NG-TUBE SCH (06:18)
[2023-12-15] MEDS: MIDAZOLAM 1 MG/ML 5 ML VIAL IV STA (08:15)
--- NOTE | 2023-12-15 08:26 | XR ---
EXAMINATION TYPE: XR chest 1V portable DATE OF EXAM: 12/15/2023 Comparison: 12/14/2023 Clinical History: 73-year-old female Pleural Effusions/Atelectasis Findings: New white out of the left hemithorax with ipsilateral volume loss. ET tube not well seen. Query extub ation. NG tube in place. Right CVC tip mid SVC. Left PICC tip in SVC. Some hazy density at the right base could represent trace fluid. Impression: 1. New whiteout and volume loss of the left hemithorax. Consider interval left lung collapse with und erlying effusion. 2. ET tube not clearly seen.
[2023-12-15] MEDS: MORPHINE SULFATE 4 MG/ML SYRINGE IV PRN (08:30)
[2023-12-15] MEDS ORDERED: LORazepam 2 MG/ML INJ IV PRN (08:41)
--- NOTE | 2023-12-15 10:01 | XR ---
EXAMINATION TYPE: XR chest 1V portable DATE OF EXAM: 12/15/2023 Comparison: Earlier today Clinical History: 73-year-old female post bronch Findings: Right IJ CVC and left PICC tip is at the mid SVC level. Patient rotated towards the left. There are s mall bilateral pleural effusions. Retrocardiac opacity with interval resolution of the previous left thoracic whiteout. Heart normal size. Impression: 1. Resolution of the previous white out of the left hemithorax. 2. There are small bilateral pleural effusions with adjacent atelectasis and/or consolidation. Ongoin g dense retrocardiac opacity.
[2023-12-15] MEDS: FUROSEMIDE 10 MG/ML 4 ML VIAL IV STA (10:37)
[2023-12-15 11:51] LABS: Glucose,Whole Blood 103 mg/dL (70-110)
--- NOTE | 2023-12-15 11:54 | P.PN ---
Subjective Progress Note Date: 12/15/23 Principal diagnosis: Abdominal sepsis, diverticulitis, gram-negative bacteremia This is a 74-year-old female patient who was brought into the intensive care unit after an extensive abdominal surgery. The patient underwent exploratory laparotomy and sigmoid colectomy and diverging colostomy. The patient was emergently taken to the operating room this afternoon as the patient was becoming hypotensive and she had developed persistent leukocytosis intermittent fevers consistent with sepsis and septic shock. The patient was also becoming hypotensive despite being resuscitated with IV fluids and the patient preoperatively received a total of 3 L of IV fluids. An emergent surgical exploration was indicated. 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 At this point in time, the patient is sedated and the patient is currently on propofol. She is intubated on mechanical ventilator and she is on assist- control mode at a rate of 12, tidal volume of 400, FiO2 of 100% and a PEEP of 5. Chest x-ray shows a right IJ triple-lumen catheter. ET tube is in good location. No airspace disease or consolidation. The blood gases showed a pH of 7.22 with a pCO2 of 51 and pO2 of 255. The patient is currently on no pressors and urine output is quite diminished in the order of 10 to 20 cc since arrival from the operating room. The patient is on IV cefepime and Flagyl. Received a total of 2 unit PRBC intraop 12/07/2023, I am seeing the patient for a follow-up in the intensive care unit. The patient is currently postop day #1. The patient remains intubated on the mechanical ventilator. This morning, the patient is on propofol which is running at 30 mcg/kg/min. She was resuscitated with IV fluids. She was maintained on normal saline at rate of 150 cc an hour and norepinephrine was also added overnight and currently norepinephrine is running at 0.07 mcg/kg/min. Her urine output is in the order of 10 to 20 cc an hour. Overall fluid balance over the past 24 hours has been +3.6 L. The patient remains on a combination of cefepime and Flagyl. The blood work from today shows a WBC count of 37.4, hemoglobin 10.7 and platelet count of 499. BUN is at 15 with a creatinine of 0.8. Sodium is at 143 from yesterday. Repeat electrolytes are still pending for now. Meanwhile, the patient remains intubated on mechanical ventilator. This morning, she is on assist-control mode at rate of 24, tidal volume of 400, FiO2 is at 55% with a PEEP of 5. The blood gas shows a pH of 7.38 with a pCO2 of 31 and pO2 of 119. Review of the chest x-ray from this morning shows adequate positioning of the orotracheal tube. This may need to be pushed in by 1 cm. The patient has a small atelectasis/left-sided pleural effusion. Otherwise, the right lung is essentially clear at this point in time. Antibiotic coverage includes a combination of cefepime and Flagyl. The patient will need Dilaudid for pain control. She is on heparin subcu for DVT prophy laxis. She is resting comfortably in bed. No other significant events overnight. Currently she is afebrile. The wound VAC is in place. Colostomy site is not fully functional at this point in time. Abdomen is soft. 12/08/2023, the patient remains intubated on mechanical ventilator and she is in the intensive care unit postop day #2. The patient remains on a mechanical ventilator. She is currently on assist-control mode with rate of 24, tidal volume of 400, FiO2 of 50% with a PEEP of 5. The blood gases from this morning showed a pH of 7.28 with a pCO2 of 32 and pO2 of 105. The chest x-ray was reviewed and shows evidence of left basilar effusion/atelectasis. Orotracheal tube is in good location. The patient is triple-lumen catheter in her right IJ. Unfortunately, at around 3 AM this morning, the patient went into A-fib RVR and the patient became profoundly hypotensive. The patient progressively required higher dose of norepinephrine and currently norepinephrine is running at 0.2 mcg/kg/min and her mean arterial pressure is around 64. At the same time, the patient received treatment for her new onset atrial fibrillation. She was given an amiodarone bolus and currently she is on amiodarone at 0.5 mg/min. Based on her underlying hypotension. The patient was thought to hemodynamically unstable with A-fib RVR. The patient received cardioversion on 3 separate occasions using 120 J, 150 J and 200 J. Those attempts failed and the patient remained in atrial fibrillation. Her current heart rate is running at around 150 beats a minute, irregular. Urine output has dropped and the patient is producing only 10 cc an hour. At the same time, the patient's white cell count is up to 33.3 with a hemoglobin 12.1 and platelet count of 412. NG tube is in place. Output is minimal. Abdomen remains soft. The wound VAC is still in place. There is some liquidy stool material in the colostomy bag. No abdominal distention. The patient has been developing progressive edema and upper extremities in the left lower extremity. 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 Rest of the electrolytes show a sodium level of 143, serum bicarb is down to 12, anion gap is at 6, BUN is at 17 with a creatinine of 0.8. Magnesium level is at 1.9 with a calcium level of 7.9. The patient remains on IV cefepime and Flagyl. Urine culture from 12/04/2023 was positive for Klebsiella pneumoniae. She is currently afebrile. Propofol is running at 35 mcg/kg/min. The patient has been adequately sedated for now. Patient was reevaluated today on 12/09/2023, remains intubated and mechanically ventilated. On assist-control rate of 24 tidal volume 400 FiO2 50% and PEEP of 5. ABG showed a pO2 of 128 pCO2 35 pH 7.39. His FiO2 was cut down to 40% instead of 50%. Patient remained on multiple drips including norepinephrine, 0.04 mcg/kg/min, propofol at 35 mcg/kg/min, vasopressin at 0.03 units/min, D5W with 3 A of bicarb running at 150 cc/h. Patient is receiving vancomycin and Merrem. Patient has a left IJ triple-lumen catheter and left radial arterial line. Urine is positive Klebsiella, blood cultures were noted to be also positive for gram-negative bacilli. Most likely Klebsiella. Patient is on Merrem and she is on vancomycin patient is now postoperative day #3. Patient received 2 units of packed RBCs, since admission, hemoglobin now is 9.8, hemoglobin went as low as 7.4 on 12/04 labs today showed PTT of 57.4, basic metabolic profile is normal except for low potassium of 3.0 bicarb is 16, renal profile is normal WBC count is 28.5 hemoglobin is 9.8 urine cultures are positive for Klebsiella pneumoniae. Nutrition hicks the patient is receiving vit al HP 10 cc/h. Patient remains in atrial fibrillation, rate seems to be reasonably controlled Patient was reevaluated today on 12/10/2023, remains in the ICU, intubated and mechanically ventilated. Earlier this morning I was made aware of the patient's chest x-ray showing complete collapse of the left lung, and tracheal deviation to the ipsilateral side. This was clearly consistent with mucous plugging involving the left mainstem bronchus. Hence the patient underwent bronchoscopy, suctioning of the mucous plugs, and bronchoalveolar lavage of the left upper lobe lingula and left lower lobe. Please refer to the full operative report regarding this procedure. Patient remains intubated, mechanically ventilated, she is on assist-control rate of 24 tidal volume 400 FiO2 is now 50% PEEP of 10 and I cut it down to 8. Patient remains on multiple drips including norepinephrine at 0.06 mcg/kg/min vasopressin at 0.04 units/h, bicarb drip which I have discontinued today, Cardizem drip at 5 mg/h. Patient is also on heparin drip, propofol at 15 mcg/kg/min. Antibiotics hicks remains on Merrem for Klebsiella infection involving urine and blood. Chest x-ray as noted above, patient had complete opacification of the left lung, however after bronchoscopy and BAL significant improvement was noted and aeration of left lung significantly improved. ABG this morning on 40% showed a pO2 of 55 pCO2 48 and pH of 7.39 BBC count is 19.7, improving hemoglobin is 9.1. Platelets 253. ASIC metabolic profile is normal and renal profile is normal Patient was placed today on 12/11/2023, remains in the ICU, intubated and mechanically ventilated, sedated. On assist-control rate of 24 tidal volume 400 FiO2 50% and PEEP of 8 patient is requiring hemodynamic support with vasopressin 0.04 units, norepinephrine at 0.03 mcg/kg/min, patient is nutritionally supported with vital HP at 53 mL/h. ABG showed a pO2 of 96 pCO2 39 pH of 7.48. Patient remains on vancomycin and Merrem, urine output is about 40 cc/h hence I recommended Lasix to be given today 40 mg IV push x 1. Patient has a functioning ostomy, and she continues to have a wound VAC in place. CODE STATUS has been changed to DNR, yesterday, the patient underwent a bronchoscopy for complete opacification of the left lung, cultures from the BAL are pending, on today's chest x-ray there is minimal atelectasis in the left midlung, left lung remains relatively fully expanded Patient was reevaluated today on 12/12/2023, remains in the ICU intubated and mechanically ventilated. Patient is still requiring pressors, still on assist- control rate of 24 tidal volume 400 FiO2 45% PEEP is 8 and I cut it down to 6 today. ABG showed a pO2 of 105 pCO2 37 pH of 7.52 patient has been off propofol for the last 24 hours, still receiving heparin, she is on vasopressin at 0.02, and on norepinephrine at 0.01 mcg/kg/min. Antibiotics hicks, patient remains on Merrem and Eraxis. Patient is arousable, opens her eyes, extremely weak, however she is able to squeeze hands only. Continues to have leukocytosis with WBC count of 16.1 hemoglobin is 8.6, basic metabolic profile is normal. Nutrition hicks, patient remains on vital HP at 53/53 cc/h. Plan today on this patient is to continue patient off any sedation, and hopefully give the patient a trial of pressure support and CPAP, I do not believe the patient is ready to be extubated, but will start at least at times of weaning trials with pressure support mode of mechanical ventilation Patient was evaluated today on 12/13/2023, remains in the ICU, intubated and mechanically ventilated, patient is on assist-control rate of 24 tidal volume 400 FiO2 45% and PEEP of 6. ABG was done this morning. Overall the patient has not shown any significant change in the last few days, remains off sedation, patient is arousable, follows simple instructions like squeezing hands and wiggling toes. Hence I plan to give the patient today a trial of pressure support of 12 and CPAP, patient is still requiring a tiny bit of norepinephrine at 0.01 mcg/kg/min, patient remains on vital HP at 53 cc/h, and on heparin drip. Cardiac hicks, patient is on Merrem. Patient looks edematous and swollen, I recommended Lasix 40 mg IV push x 1 today chest x-ray is showing small left pleural effusion and atelectasis.WBC count is 15.1 hemoglobin 8.6. Basic metabolic profile is normal. BUN and creatinine are normal. Patient presented today on 12/14/2023, patient remains in the ICU, remains intubated and mechanically ventilated, on assist-control rate of 24 tidal volume 400 FiO2 35% and PEEP of 6. ABG not done today. Patient remains on antibiotics in the form of Eraxis and Merrem.Patient had Romelia and bronchoalveolar lavage, and she had Klebsiella pneumonia in her urine chest x-ray continues to show some minimal left basilar atelectasis. WBC count is 13.5 hemoglobin is 8.8, PTT is 44 basic metabolic profile is normal renal profile is normal, patient is not requiring any pressors anymore. Continues to improve with intermittent Lasix and should be given more Lasix today. Patient went on pressure support and CPAP almost 8 hours yesterday, she was transitioned to assist-control mode of mechanical ventilation overnight, and this morning early this morning, she was placed back on pressure support and CPAP. Hence the patient will be extubated to BiPAP, and we will continue to monitor the patient in the ICU. Although patient's CODE STATUS has been changed to no code, and not to reintubate if she fails extubation patient was reevaluated today on 12/15/2023, remains in the ICU, patient has been on BiPAP all the day yesterday, however at night she was placed on nasal cannula, apparently the patient kept taking her BiPAP off, and the decision was made by the nurses to place on nasal cannula, she tolerated nasal cannula overnight quite well, however this morning her chest x-ray showed complete widening of the left lung. Patient developed mucous plugging again involving the left mainstem bronchus and the left lung,, this required bronchoscopy done at bedside with IV conscious sedation, and I was able to remove all the mucous plugs from the left lung, and follow-up chest x-ray postoperatively showed complete reexpansion of the left lung. Meantime the patient remains on Lasix 40 mg IV push daily and I have been ordering that on a daily basis, patient will receive Ativan on BiPAP to keep her wearing the BiPAP overnight, presently her BiPAP is 16/6/50%. IV fluids at KVO, she is on vital HP at 40 cc/h which will be restarted. Labs today show WBC count of 11 hemoglobin 8.6 hematocrit 27.8 basic metabolic profile is normal renal profile is normal. Patient remains on amiodarone, Eraxis, heparin, Ativan 0.5 mg every 4 hours as needed while she is on BiPAP, she is also on Merrem, pantoprazole 40 mg IV push daily, patient has been off norepinephrine since last night CBC showed WC of 11 hemoglobin 8.6 PTT is 36.7 basic metabolic profile is normal BUN is 28 creatinine 0.44 Objective - Vital Signs Vital signs: Vital Signs Temp 96.2 F L 12/15/23 10:00 Pulse 72 12/15/23 11:00 Resp 16 12/15/23 11:00 BP 91/42 12/15/23 11:00 Pulse Ox 89 L 12/15/23 11:00 FiO2 60 12/15/23 11:35 Intake & Output 12/14/23 12/15/23 12/15/23 17:59 06:59 18:59 Intake Total 519.128 Output Total 475 Balance 44.128 Weight Intake: IV 180 0.9 80 Anidulafungin 100 mg In Sodium Chloride 0.9% 100 ml @ 84 mls/hr IVPB DAILY @1600 [facility] Rx#:[id number] Meropenem 1 gm In Sodium 100 Chloride 0.9% 100 ml @ 33 .3 mls/hr IVPB Q8HR [facility] Rx#:[id number] Intake, IV Titration 87.128 Amount Heparin Sod,Pork in 0.45% 87.128 NaCl 25,000 unit In 0.45 % NaCl 1 250ml.bag @ 10. 661 UNITS/KG/HR 10 mls/hr IV .Q24H [facility] Rx#: [id number] Tube Feeding 192 Other 60 Output: Urine 475 Stool Other: Voiding Method ABP, PAP, CO, CI - Last Documented Arterial Blood Pressure 95/53 - Exam General: Reveals 71-year-old female on BiPAP, seems to be generally weak, not in any distress. Skin: No rashes. Eye: Pupils are equal, round and reactive to light, extra-ocular movements are intact; there is normal conjunctiva bilaterally. Ears, nose, mouth and throat: There are moist mucous membranes and no oral lesions. Endotracheal tube is intact. Neck: The neck is supple, there is no tenderness or JVD. Cardiovascular: Distant S1-S2, no S3 gallop, no murmur. Respiratory: Minich breath sounds on the left side, good breath sounds on the right side Abdomen: Soft, nontender, no megaly, wound VAC is noted, colostomy is functional. Musculoskeletal: Right above-knee amputation is noted otherwise unremarkable. Significant swelling in both lower extremities although the patient has a right above-knee amputation but her thigh seems to be quite swollen and her left lower extremity is quite edematous Neurological: Awake, follows simple instructions. Psychiatric: Normal mood, flat affect, normal mental status for - Labs CBC & Chem 7: 12/15/23 04:29 12/15/23 04:29 Labs: Abnormal Lab Results - Last 24 Hours (Table) 12/14/23 12/14/23 12/14/23 Range/Units 11:32 18:01 18:50 WBC (3.8-10.6) k/uL RBC (3.80-5.40) m/uL Hgb (11.4-16.0) gm/dL Hct (34.0-46.0) % MCHC (31.0-37.0) g/dL RDW (11.5-15.5) % Neutrophils # (1.3-7.7) k/uL APTT 45.2 H (22.0-30.0) sec Chloride (98-107) mmol/L BUN (7-17) mg/dL Creatinine (0.52-1.04) mg/dL Glucose (74-99) mg/dL POC Glucose (mg/dL) 114 H 118 H (70-110) mg/dL Calcium (8.4-10.2) mg/dL 12/15/23 12/15/23 12/15/23 Range/Units 04:29 04:29 04:29 WBC 11.0 H (3.8-10.6) k/uL RBC 3.21 L (3.80-5.40) m/uL Hgb 8.6 L (11.4-16.0) gm/dL Hct 27.8 L (34.0-46.0) % MCHC 30.9 L (31.0-37.0) g/dL RDW 23.0 H (11.5-15.5) % Neutrophils # 8.8 H (1.3-7.7) k/uL APTT 36.7 H (22.0-30.0) sec Chloride 111 H (98-107) mmol/L BUN 28 H (7-17) mg/dL Creatinine 0.44 L (0.52-1.04) mg/dL Glucose 100 H (74-99) mg/dL POC Glucose (mg/dL) (70-110) mg/dL Calcium 7.5 L (8.4-10.2) mg/dL Assessment and Plan Assessment: Impression: Status post exploratory laparotomy colectomy and diverting colostomy and debridement of cutaneous fistula postoperative day #9 Abdominal sepsis and septic shock New onset atrial fibrillation with RVR Gram-negative bacteremia Klebsiella pneumonia urinary tract infection Leukocytosis secondary to above, improving. 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 Continue Eraxis and Merrem Continue enteral feedings/nutritional support Continue amiodarone and heparin Continue GI prophylaxis Continue updrafts and continue chest PT Continue to monitor daily x-rays of the chest. Patient remains critically ill. CODE STATUS is DNR CODE STATUS Critical care time is over 30 minutes, not including the time spent on procedures Will continue to follow Time with Patient: Greater than 30
[2023-12-15] MEDS ORDERED: guaiFENesin 600 MG TABLET.ER PO SCH (12:00)
--- NOTE | 2023-12-15 12:07 | OP ---
OPERATIVE REPORT DATE OF SERVICE : PROCEDURE PERFORMED: Bronchoscopy and bronchoalveolar lavage of the left lung, and mucus plug suctioning from the left mainstem bronchus and from the left upper lobe lingula and left lower lobe. PREOPERATIVE DIAGNOSES: Left lower lobe collapse and suspect mucus plugs involving the left mainstem bronchus. POSTOPERATIVE DIAGNOSES: Left lower lobe collapse and suspect mucus plugs involving the left mainstem bronchus. ANESTHESIA USED: IV conscious sedation including Versed 5 mg IV push and morphine sulfate 4 mg IV push. DESCRIPTION OF PROCEDURE: The patient was placed in a supine position, O2 was applied via a Ventimask and bite block was applied. The patient was already in the ICU, and we are continuously monitoring her O2 saturation, blood pressure was continuously monitored, and cardiac rhythm was continuously monitored. After adequate IV conscious sedation after giving Versed and morphine sulfate, the bronchoscope was advanced through the bite block down to the area of the vocal cords. The area around the vocal cord was suctioned. There was significant whitish secretions which were suctioned easily. Then, the bronchoscope was advanced further down through the vocal cords to the area of the trachea and it was completely full of whitish secretions. These were suctioned, then I went down and examined the left mainstem bronchus, which was also occluded with whitish secretions and mucus plugs. Suctioned and lavaged the left mainstem bronchus, left upper lobe lingula and left lower lobe until cleared completely. I then moved to the right side, there was very minimal secretions, but there were no mucus plugs on the right side. Examination of the right upper lobe, right middle lobe, right lower lobe was done, and then the bronchoscope was pulled out of the airways, procedure was well tolerated, the patient was placed back on BiPAP postprocedure. Chest x-ray postoperatively showed complete re-expansion of the left lung. MMODL / IJN: [id number] /
--- NOTE | 2023-12-15 13:13 | P.PN ---
Subjective Progress Note Date: 12/15/23 Principal diagnosis: Colocutaneous fistula Patient remains extubated. He is on BiPAP still. Had a bronchoscopy this morning because of left lung collapse. Mildly confused. Hemodynamically stable. Nasogastric tube remains in place. Ostomy functioning. Objective - Vital Signs Vital signs: Vital Signs Temp 96.2 F L 12/15/23 10:00 Pulse 73 12/15/23 12:30 Resp 18 12/15/23 12:30 BP 99/59 12/15/23 12:30 Pulse Ox 97 12/15/23 12:30 FiO2 60 12/15/23 11:35 Intake & Output 12/14/23 12/15/23 12/15/23 17:59 06:59 18:59 Intake Total 519.128 Output Total 825 Balance -305.872 Weight Intake: IV 180 0.9 80 Anidulafungin 100 mg In Sodium Chloride 0.9% 100 ml @ 84 mls/hr IVPB DAILY @1600 [facility] Rx#:[id number] Meropenem 1 gm In Sodium 100 Chloride 0.9% 100 ml @ 33 .3 mls/hr IVPB Q8HR [facility] Rx#:[id number] Intake, IV Titration 87.128 Amount Heparin Sod,Pork in 0.45% 87.128 NaCl 25,000 unit In 0.45 % NaCl 1 250ml.bag @ 10. 661 UNITS/KG/HR 10 mls/hr IV .Q24H [facility] Rx#: [id number] Tube Feeding 192 Other 60 Output: Urine 475 Stool 350 Other: Voiding Method ABP, PAP, CO, CI - Last Documented Arterial Blood Pressure 95/53 - Exam Abdomen: Soft, Basilia and wound VAC in place, ostomy functioning - Labs CBC & Chem 7: 12/15/23 04:29 12/15/23 04:29 Labs: Abnormal Lab Results - Last 24 Hours (Table) 12/14/23 12/14/23 12/15/23 Range/Units 18:01 18:50 04:29 WBC (3.8-10.6) k/uL RBC (3.80-5.40) m/uL Hgb (11.4-16.0) gm/dL Hct (34.0-46.0) % MCHC (31.0-37.0) g/dL RDW (11.5-15.5) % Neutrophils # (1.3-7.7) k/uL APTT 45.2 H 36.7 H (22.0-30.0) sec Chloride (98-107) mmol/L BUN (7-17) mg/dL Creatinine (0.52-1.04) mg/dL Glucose (74-99) mg/dL POC Glucose (mg/dL) 118 H (70-110) mg/dL Calcium (8.4-10.2) mg/dL 12/15/23 12/15/23 Range/Units 04:29 04:29 WBC 11.0 H (3.8-10.6) k/uL RBC 3.21 L (3.80-5.40) m/uL Hgb 8.6 L (11.4-16.0) gm/dL Hct 27.8 L (34.0-46.0) % MCHC 30.9 L (31.0-37.0) g/dL RDW 23.0 H (11.5-15.5) % Neutrophils # 8.8 H (1.3-7.7) k/uL APTT (22.0-30.0) sec Chloride 111 H (98-107) mmol/L BUN 28 H (7-17) mg/dL Creatinine 0.44 L (0.52-1.04) mg/dL Glucose 100 H (74-99) mg/dL POC Glucose (mg/dL) (70-110) mg/dL Calcium 7.5 L (8.4-10.2) mg/dL Assessment and Plan (1) Bellamy-enteric fistula Narrative/Plan: 73-year-old female stable at this time after extubation 2 days ago. Respiratory status remains marginal however. No plans for reintubation. Continue optimization of pulmonary status. Continue antibiotics. Continue gastric decompression. Will follow. Current Visit: Yes Status: Acute Code(s): K63.2 - FISTULA OF INTESTINE SNOMED Code(s): 995991253
--- NOTE | 2023-12-15 13:46 | P.PN ---
Subjective This is a pleasant 73 years old female who presents to the emergency room for lower abdominal fistula drainage, associated with generalized weakness. Patient looks awake alert but tired looking, pale. Feels generally weak. N has mild generalized abdominal pain and tenderness. No rebound tenderness. Blood with malodorous left lower abdominal fistula drainage with fecal material coming out. Patient also with right rotation. Patient also with unstageable sacral pressure ulcer. With some evidence of cellulitis. Patient is mildly confused. But no headache or weakness in upper or lower patient was hypotensive with a blood pressure/42, currently slightly better 96/43. Potassium is low 2.9, WBC elevated 23,000, hemoglobin 7.4. Creatinine 0.7. Liver enzymes unremarkable. CT of the abdomen pelvis showing sigmoid diverticulitis and proctitis. 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 Please refer to the report for more details. Patient was ordered received normal saline boluses. Currently on Normosol at 130 mL/h She received 1 dose of Zosyn and started on Flagyl. We are going to add cefepime for gram-negative coverage. 12/05/2023 Patient is awake and alert, generally weak and tired, mildly drowsy Denies abdominal pain or tenderness, she has fistula in the left lower abdomen She denies chest pain or dyspnea. No headache dizziness weakness or numbness. No breathing difficulty. And currently she is saturating well on room air. Blood pressure is still on the low side.but is improving while on IV fluid Glucose 65 and her fluids changed to D5 normal saline at 1 30 mL/h She is currently covered with cefepime and IV Flagyl and IV Protonix She has leukocytosis of 23,000, hemoglobin stable 7.9, low potassium been replaced. Magnesium is normal 2.0. B12 541, Elevated ESR 75 and CRP 25 Patient at moderate risk for her multiple medical problems. Because of this ec hocardiogram was requested and cardiology consulted for preop evaluation. 12/06/2023 Patient remains awake and oriented, mildly lethargic Patient today was supposed to go for surgery to fix her enteric fistula Blood pressure was on the low side this morning I got a call from the bedside nurse blood pressure was 68/32, a bolus of normal saline is provided as well as midodrine Blood pressure a little low after first bolus, where going to give her another bolus of 1 L follow-up with the blood pressure. 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 Surgery Attendant eval into the patient for preop assessment and there is no contraindication to proceed with surgery. Patient remains on normal saline with 30 mL/h, cefepime, IV Flagyl and IV Protonix 12/07/2023 Patient s/p sigmoid colectomy and taken down the fistula with peritoneal lavage, creatinine descending colostomy pouch with rectum Gabriel procedure by surgery team Postoperatively and perioperatively patient was hypotensive, after the procedure she got intubated and sent to the intensive care unit and started on pressors Patient remains on excessive hydration She is making about 10 to 20 mL of urine output She remains on broad-spectrum antibiotics with IV cefepime and Flagyl Patient labs and vitals are reviewed 12/08/2023 Patient remains in the ICU in 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 Patient was started on amiodarone and heparin drip Also patient abdomen soft but she is becoming more anuric She still intubated on mechanical ventilation with assist-control Her leukocytosis is worse at 33,000 urine cultures grewing Klebsiella. Blood cultures positive for gram negative bacilli Her antibiotics was adjusted to meropenem and IV vancomycin. Her fluids running normal saline changed to sodium bicarb at 150 mL/h She is still on IV Protonix Her albumin is low so they are going to give her 1 dose of albumin IV if no imp rovement 12/09/2023 Patient remains in the ICU intubated and sedated She was still on pressors this morning on Levophed at 0.09, bicarbonate drip at 150 mL also vasopressin 0.03. She still has wound VAC in his abdomen. Patient blood pressure started improving 115/45 Potassium 3.4, WBC trending down to 28,000, hemoglobin 9.8. Albumin is 1.5 and patient 2 more bags of albumin 25 g to support her system as she has anasarca and significant swelling of the lower extremities. Patient remains also on broad-spectrum antibiotics with IV vancomycin and meropenem. She is also on Protonix. Discussed with staff. 12/10/2023 pt remains in the icu intubated and sedated pt chest xray showing left hemilthorax collapse pt requiring pressors, planning to wean down if possible c'w treatment for a fib with amiodaron and heparin drip still on broad spectrum antibioitc 12/11/2023 Patient felt to be improving although she still intubated in the ICU in critical condition and followed closely by pulmonary/critical care team Levophed dose decreased from yesterday 0.09 down to 0.03. Bicarb drip was stopped. Vasopressin dose actually slightly increased from 0.03 up to 0.04. Heparin drip was continued. Patient continued on tube feeding Antibiotic with vancomycin and meropenem, Eraxis added today 12/12/2023 Patient remains intubated in the ICU Patient showing signs of improving gradually. She is requiring less pressors of Levophed today was down to 0.01, she was on vasopressin 0.04 trying to wean it down to 0.0 3 in the morning and see the response of the patient through the day. Her leukocytosis also coming down 20,000 down to 16,000, Patient continued on broad-spectrum antibiotics of meropenem, IV vancomycin and Eraxis. Also she is on oral amiodarone with cardiology following closely. 12/13/2023 Patient remains in the ICU intubated and sedated with pulmonary/critical care team following closely and help with the vent management. Actually today there were trying sedation holiday and patient has been waking up and follows simple commands. Patient could come off pressors today and her blood pressure remained stable. 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 Remains on IV vancomycin, meropenem and Eraxis 12/14/2023 Patient is still intubated in the ICU, she is off sedation. She open eyes to verbal commands and trying to follow commands. She is off pressors She remains on meropenem and Eraxis Patient significantly edematous His heart rate is controlled regarding his A-fib 12/15/2023 Patient remains in the ICU. She is s/p extubation today. Blood she has left lung collapse so she underwent bronchoscopy with Dr. More and postprocedure x- ray showing expanded left lung as before. Patient continues on BiPAP for now. She needed short time off Levophed but stopped. Her blood pressure is supported. She continues to improve slowly and gradually. WBC count down to 15 down to 11,000. Afebrile. She is continued on meropenem and Eraxis She is on heparin drip for new onset A-fib and RVR on admission Objective - Vital Signs Vital signs: Vital Signs Temp 96.2 F L 12/15/23 10:00 Pulse 73 12/15/23 10:00 Resp 19 12/15/23 10:00 BP 95/50 12/15/23 10:00 Pulse Ox 99 12/15/23 10:00 FiO2 50 12/15/23 10:00 Intake & Output 12/14/23 12/15/23 12/15/23 17:59 06:59 18:59 Intake Total 341.128 Output Total 325 Balance 16.128 Weight Intake: IV 80 0.9 80 Anidulafungin 100 mg In Sodium Chloride 0.9% 100 ml @ 84 mls/hr IVPB DAILY @1600 [facility] Rx#:[id number] Meropenem 1 gm In Sodium Chloride 0.9% 100 ml @ 33 .3 mls/hr IVPB Q8HR [facility] Rx#:[id number] Intake, IV Titration 87.128 Amount Heparin Sod,Pork in 0.45% 87.128 NaCl 25,000 unit In 0.45 % NaCl 1 250ml.bag @ 10. 661 UNITS/KG/HR 10 mls/hr IV .Q24H [facility] Rx#: [id number] Tube Feeding 144 Other 30 Output: Urine 325 Stool Other: Voiding Method ABP, PAP, CO, CI - Last Documented Arterial Blood Pressure 95/53 - Exam -GENERAL: The patient is intubated and sedated HEENT: Pupils are round and equally reacting to light. EOMI. No scleral icterus. No conjunctival pallor. Normocephalic, atraumatic. No pharyngeal erythema. No thyromegaly. CARDIOVASCULAR: S1 and S2 present. No murmurs, rubs, or gallops. PULMONARY: Chest is clear to auscultation, no wheezing , no crackles. -ABDOMEN: Soft, nontender, nondistended, normoactive bowel sounds. No palpable organomegaly. Left lower abdominal colostomy bag MUSCULOSKELETAL: No joint swelling or deformity. -EXTREMITIES: No cyanosis, clubbing, or pedal edema. Right knee amputation, old NEUROLOGICAL: Gross neurological examination did not reveal any focal deficits. SKIN: No rashes. no petechiae. - Labs CBC & Chem 7: 12/15/23 04:29 12/15/23 04:29 Labs: Abnormal Lab Results - Last 24 Hours (Table) 12/14/23 12/14/23 12/14/23 Range/Units 11:32 18:01 18:50 WBC (3.8-10.6) k/uL RBC (3.80-5.40) m/uL Hgb (11.4-16.0) gm/dL Hct (34.0-46.0) % MCHC (31.0-37.0) g/dL RDW (11.5-15.5) % Neutrophils # (1.3-7.7) k/uL APTT 45.2 H (22.0-30.0) sec Chloride (98-107) mmol/L BUN (7-17) mg/dL Creatinine (0.52-1.04) mg/dL Glucose (74-99) mg/dL POC Glucose (mg/dL) 114 H 118 H (70-110) mg/dL Calcium (8.4-10.2) mg/dL 12/15/23 12/15/23 12/15/23 Range/Units 04:29 04:29 04:29 WBC 11.0 H (3.8-10.6) k/uL RBC 3.21 L (3.80-5.40) m/uL Hgb 8.6 L (11.4-16.0) gm/dL Hct 27.8 L (34.0-46.0) % MCHC 30.9 L (31.0-37.0) g/dL RDW 23.0 H (11.5-15.5) % Neutrophils # 8.8 H (1.3-7.7) k/uL APTT 36.7 H (22.0-30.0) sec Chloride 111 H (98-107) mmol/L BUN 28 H (7-17) mg/dL Creatinine 0.44 L (0.52-1.04) mg/dL Glucose 100 H (74-99) mg/dL POC Glucose (mg/dL) (70-110) mg/dL Calcium 7.5 L (8.4-10.2) mg/dL Assessment and Plan Assessment: Acute sigmoid sigmoid colitis, diverticulitis with proctitis. With multiple entero-cutaneous and entero-vesical fistulas, including to the left lower abdominal wall. Septic shock. Improved Acute hypoxic respiratory failure requiring intubation and mechanical ventilation. S/p extubation on 12/24 Klebsiella bacteremia A-fib and RVR Acute kidney injury, Improved no more need for dialysis Acute anemia, unknown baseline, chronic microcytic Full-thickness sacral pressure ulcer, with no obvious osseous erosions. Metabolic encephalopathy, with possible elements of delirium Bilateral adrenal nodule, recommend follow-up CT in 3 months. Acute urinary tract infection/cystitis. Culture is growing Klebsiella Anasarca With severe hypoalbuminemia Plan: Continue with oxygen therapy Continue with antibiotic, meropenem and Eraxis ID team on the case. Continue with wound care and wound VAC in place with surgery team following closely pulmonary/critical care team consult Cardiology team following closely. Continue with heparin drip and oral a miodarone IV Protonix Monitor and follow-up blood culture DVT prophylaxis: heparin, SCD GI prophylaxis: Protonix Prognosis guarded,
[2023-12-15] MEDS: guaiFENesin SYRUP 100MG/5ML 200 MG/10 ML CUP PO SCH (13:55)
--- NOTE | 2023-12-15 14:18 | P.PN ---
Subjective Progress Note Date: 12/15/23 Principal diagnosis: Reason for follow-up is complicated diverticulitis with colocutaneous fistula Patient is a 73-year-old female who was brought into the ER at [facility] for the patient complaining of generalized weakness patient noticed to have sacral pressure ulcer and also complicate diverticulitis with a fistula to the left lower abdominal wall.Patient was taken to the OR on 12/06/2023 and this patient was status post exploratory laparotomy with sigmoid colectomy takedown of the colocutaneous fistula left inguinal hernia repair and peritoneal lavage. On today's evaluation that is 12/15/2023,the patient is afebrile, patient is slightly lethargic currently on a BiPAP with FiO2 of 55%, the patient did have a bronchoscopy and removal of the left-sided mucous plugging this morning by pulmonary patient is currently off the pressor support no other changes reported by the nursing staff. Patient white count is down to 11,000, creatinine 0.44 BAL with Romelia Objective - Vital Signs Vital signs: Vital Signs Temp 97.3 F L 12/15/23 13:00 Pulse 74 12/15/23 13:30 Resp 32 H 12/15/23 13:30 BP 109/56 12/15/23 13:30 Pulse Ox 95 12/15/23 13:30 FiO2 55 12/15/23 13:00 Intake & Output 12/14/23 12/15/23 12/15/23 17:59 06:59 18:59 Intake Total 693.128 Output Total 2200 Balance -1506.872 Weight Intake: IV 210 0.9 110 Anidulafungin 100 mg In Sodium Chloride 0.9% 100 ml @ 84 mls/hr IVPB DAILY @1600 [facility] Rx#:[id number] Meropenem 1 gm In Sodium 100 Chloride 0.9% 100 ml @ 33 .3 mls/hr IVPB Q8HR [facility] Rx#:[id number] Intake, IV Titration 87.128 Amount Heparin Sod,Pork in 0.45% 87.128 NaCl 25,000 unit In 0.45 % NaCl 1 250ml.bag @ 10. 661 UNITS/KG/HR 10 mls/hr IV .Q24H [facility] Rx#: [id number] Tube Feeding 336 Other 60 Output: Urine 1850 Stool 350 Other: Voiding Method ABP, PAP, CO, CI - Last Documented Arterial Blood Pressure 95/53 - Exam GENERAL DESCRIPTION: An elderly female lying in bed in no distress RESPIRATORY SYSTEM: Unlabored breathing , decreased breath sounds at bases HEART: S1 S2 regular rate and rhythm , ABDOMEN: Soft , no tenderness EXTREMITIES: No edema feet - Labs CBC & Chem 7: 12/15/23 04:29 12/15/23 04:29 Labs: Abnormal Lab Results - Last 24 Hours (Table) 12/14/23 12/14/23 12/15/23 Range/Units 18:01 18:50 04:29 WBC (3.8-10.6) k/uL RBC (3.80-5.40) m/uL Hgb (11.4-16.0) gm/dL Hct (34.0-46.0) % MCHC (31.0-37.0) g/dL RDW (11.5-15.5) % Neutrophils # (1.3-7.7) k/uL APTT 45.2 H 36.7 H (22.0-30.0) sec Chloride (98-107) mmol/L BUN (7-17) mg/dL Creatinine (0.52-1.04) mg/dL Glucose (74-99) mg/dL POC Glucose (mg/dL) 118 H (70-110) mg/dL Calcium (8.4-10.2) mg/dL 12/15/23 12/15/23 Range/Units 04:29 04:29 WBC 11.0 H (3.8-10.6) k/uL RBC 3.21 L (3.80-5.40) m/uL Hgb 8.6 L (11.4-16.0) gm/dL Hct 27.8 L (34.0-46.0) % MCHC 30.9 L (31.0-37.0) g/dL RDW 23.0 H (11.5-15.5) % Neutrophils # 8.8 H (1.3-7.7) k/uL APTT (22.0-30.0) sec Chloride 111 H (98-107) mmol/L BUN 28 H (7-17) mg/dL Creatinine 0.44 L (0.52-1.04) mg/dL Glucose 100 H (74-99) mg/dL POC Glucose (mg/dL) (70-110) mg/dL Calcium 7.5 L (8.4-10.2) mg/dL Assessment and Plan (1) Diverticulitis of intestine, part unspecified, without perforation or abscess without bleeding Current Visit: Yes Status: Acute Code(s): K57.92 - DVTRCLI OF INTEST, PART UNSP, W/O PERF OR ABSCESS W/O BLEED SNOMED Code(s): 081543070 (2) Leukocytosis Current Visit: Yes Status: Acute Code(s): D72.829 - ELEVATED WHITE BLOOD CELL COUNT, UNSPECIFIED SNOMED Code(s): 735700009 (3) Sepsis Current Visit: Yes Status: Acute Code(s): A41.9 - SEPSIS, UNSPECIFIED ORG ANISM SNOMED Code(s): 64082611 (4) Gram-negative bacteremia Current Visit: Yes Status: Acute Code(s): R78.81 - BACTEREMIA SNOMED Code(s): 396618977979 Plan: 1patient with complicated diverticulitis with evidence of fistulous communication to the skin left lower quadrant area and concern for possible extension to the bladder, will need to cover for the polymicrobial jessie associated with such condition including enteric gram-negative both aerobes and anaerobes 2-patient also have a pressure ulcer but no significant surrounding cellulitis, wound care has been consulted continue local wound care per them 3gram-negative 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 with ID sensitivities pending, repeat blood culture has been negative so far 3-patient is status post extensive surgery including 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 5patient sputum culture grew Romelia bronchoscopy culture also grew Romelia as well as abdominal culture growing Romelia albicans 6-patient remains to be afebrile and white count is trending down, patient to continue with meropenem along with Eraxis will discuss with the micro lab in a.m. about the final on the blood culture Dictation was produced using [employer] dictation software. please excuse any grammatical, word or spelling errors.
--- NOTE | 2023-12-15 14:32 | P.PN ---
Subjective Progress Note Date: 12/15/23 Atrial fibrillation This is a 73-year-old female patient was admitted to the hospital initially with perforated diverticulitis complicated by Colocutaneous fistula and subsequently she underwent surgery. The surgery was complicated by cardiogenic shock. The patient currently is on 2 vasopressors including vasopressin's as well as norepinephrine. We initially seen the patient and signed off on her before. We saw her for preop cardiac assessment for noncardiac surgery. We requested to see the patient again because she developed atrial fibrillation with RVR. Her pressure continues to be low. She was started on amiodarone IV which I would agree on. She also was started on heparin IV which I would agree on. The echo during the hospital stay showed mildly impaired LV function with EF around 45%. Another echo was requested and performed and we are in process to have the results. The examination is remarkable for the patient being intubated on mechanical ventilation currently on 2 vasopressors as well as regular rate and rhythm with a distant heart sounds and diminished breathing sounds bilaterally Progress note 12/11/23 BP 104/45, heart rate 85 bpm. Patient intermittently goes into atrial fibrillation on and off but does not sustain in atrial fibrillation. Currently patient is in sinus rhythm. Hemoglobin 9.9, WBC 20, creatinine 0.5 Patient is still on norepinephrine and vasopressin. Will try to wean her off norepinephrine today. Patient has failed weaning trial today. Patient is no code 12/12/2023 Patient is on very low pressors norepinephrine 0.02, vasopressin 0.02. Patient has generalized swelling and was in positive fluid balance. She has received 1 dose of IV Lasix 40 mg yesterday. Blood pressure 113/40, pulse 66 bpm. Last night patient did go into atrial fibrillation with RVR for which she was placed on Cardizem drip. Since 10 PM yesterday it has been discontinued. Patient is currently getting sedation vacation and spontaneous breathing trial. No plans for extubation today as per pulmonary team Hemoglobin 8.6, creatinine 0.4, Metabolic alkalosis, ABG 7.5, bicarb 27, anion gap is -3, 12/13/2023 Patient remains on ventilator support. BP 101/54, heart rate 76, sinus rhythm. Intermittent atrial fibrillation On 0.01 mcg of norepinephrine. Negative fluid balance of 4 L yesterday. Made 3.3 L of urine yesterday. Responded well to IV diuretics. Hemoglobin 8.6, creatinine 0.4 Continues to have bicarb of 30, anion gap of -3. 12/14/2023 Patient was successfully extubated and currently is on BiPAP support. She is off pressors. BP 108/48, heart rate 77, currently in normal sinus rhythm. Clinically appears volume overloaded in bilateral lower extremity due to 3+ pitting edema I's and O's 2.7 L of urine last 24 hours. Creatinine 0.49 hemoglobin 8.8, WBC 13.5 12/15/2023 Patient had bronchoscopy done today. Currently on BiPAP support. Patient is able to follow commands. More oriented as compared to yesterday. Hemodynamically stable no further atrial fibrillation's. Swelling has improved yesterday but still appears volume overloaded. Renal function stable Impression S/p exploratory laparotomy, colectomy, diverting colostomy, debridement of cutaneous fistula VDRF s/p extubation 12/14/2023 New onset atrial fibrillation, currently sinus rhythm. Having paroxysms on and off Septic shock with gram-negative bacteremia, resolving Klebsiella pneumonia and urinary tract infection Metabolic alkalosis with negative anion gap Echocardiogram showed EF of 50%, mild to moderate MR, Plan Amiodarone to 200 mg twice daily due to low resting heart rate. Reduce to 200mg daily from 12/19/2023. Monitor liver and thyroid function outpatient with PCP a fter discharge. Will continue amiodarone as patient still has paroxysms of atrial fibrillation which compromises her hemodynamics. Discontinue Cardizem. Only do Cardizem if heart rate is sustaining above 130 to 140 bpm. Metabolic alkalosis, vent management, sepsis management as per primary team and ICU team Agree with IV Lasix as needed for maintaining fluid balance. Currently appears clinically volume overloaded. Objective - Vital Signs Vital signs: Vital Signs Temp 97.3 F L 12/15/23 13:00 Pulse 74 12/15/23 13:30 Resp 32 H 12/15/23 13:30 BP 109/56 12/15/23 13:30 Pulse Ox 95 12/15/23 13:30 FiO2 55 12/15/23 13:00 Intake & Output 12/14/23 12/15/23 12/15/23 17:59 06:59 18:59 Intake Total 693.128 Output Total 2200 Balance -1506.872 Weight Intake: IV 210 0.9 110 Anidulafungin 100 mg In Sodium Chloride 0.9% 100 ml @ 84 mls/hr IVPB DAILY @1600 [facility] Rx#:[id number] Meropenem 1 gm In Sodium 100 Chloride 0.9% 100 ml @ 33 .3 mls/hr IVPB Q8HR [facility] Rx#:[id number] Intake, IV Titration 87.128 Amount Heparin Sod,Pork in 0.45% 87.128 NaCl 25,000 unit In 0.45 % NaCl 1 250ml.bag @ 10. 661 UNITS/KG/HR 10 mls/hr IV .Q24H [facility] Rx#: [id number] Tube Feeding 336 Other 60 Output: Urine 1850 Stool 350 Other: Voiding Method ABP, PAP, CO, CI - Last Documented Arterial Blood Pressure 95/53 - Labs CBC & Chem 7: 12/15/23 04:29 12/15/23 04:29 Labs: Abnormal Lab Results - Last 24 Hours (Table) 12/14/23 12/14/23 12/15/23 Range/Units 18:01 18:50 04:29 WBC (3.8-10.6) k/uL RBC (3.80-5.40) m/uL Hgb (11.4-16.0) gm/dL Hct (34.0-46.0) % MCHC (31.0-37.0) g/dL RDW (11.5-15.5) % Neutrophils # (1.3-7.7) k/uL APTT 45.2 H 36.7 H (22.0-30.0) sec Chloride (98-107) mmol/L BUN (7-17) mg/dL Creatinine (0.52-1.04) mg/dL Glucose (74-99) mg/dL POC Glucose (mg/dL) 118 H (70-110) mg/dL Calcium (8.4-10.2) mg/dL 12/15/23 12/15/23 12/15/23 Range/Units 04:29 04:29 13:55 WBC 11.0 H (3.8-10.6) k/uL RBC 3.21 L (3.80-5.40) m/uL Hgb 8.6 L (11.4-16.0) gm/dL Hct 27.8 L (34.0-46.0) % MCHC 30.9 L (31.0-37.0) g/dL RDW 23.0 H (11.5-15.5) % Neutrophils # 8.8 H (1.3-7.7) k/uL APTT 72.4 H (22.0-30.0) sec Chloride 111 H (98-107) mmol/L BUN 28 H (7-17) mg/dL Creatinine 0.44 L (0.52-1.04) mg/dL Glucose 100 H (74-99) mg/dL POC Glucose (mg/dL) (70-110) mg/dL Calcium 7.5 L (8.4-10.2) mg/dL
[2023-12-15] MEDS: IPRATROPIUM-ALBUTEROL 3 ML NEB INHALATION SCH (14:33)
[2023-12-15 18:40] LABS: Glucose,Whole Blood 116 mg/dL (70-110)
[2023-12-15 23:43] LABS: Glucose,Whole Blood 116 mg/dL (70-110)
[2023-12-16 05:06] LABS: Anisocytosis Marked; Basophils % (A) 0 %; Eosinophils # (A) 0.3 k/uL (0-0.7); Eosinophils % (A) 3 %; HCT 25.6 % (34.0-46.0); HGB 7.9 gm/dL (11.4-16.0); Hypochromasia Moderate; Lymphocytes # (A) 1.2 k/uL (1.0-4.8); Lymphocytes % (A) 12 %; MCH 26.7 pg (25.0-35.0); MCHC 30.9 g/dL (31.0-37.0); MCV 86.3 fL (80.0-100.0); Macrocytosis Slight; Mean Platelet Volume 8.8; Microcytosis Slight; Monocytes # (A) 0.4 k/uL (0-1.0); Monocytes % (A) 3 %; Neutrophils # (A) 8.7 k/uL (1.3-7.7); Neutrophils % (A) 82 %; Platelet Count 338 k/uL (150-450); RBC 2.97 m/uL (3.80-5.40); RDW 24.5 % (11.5-15.5); WBC 10.7 k/uL (3.8-10.6)
[2023-12-16 05:50] LABS: African American GFR (CKD) >90 (>60 ml/min/1.73 sqM); Anion Gap -5 mmol/L; Blood Urea Nitrogen 29 mg/dL (7-17); Calcium 7.4 mg/dL (8.4-10.2); Carbon Dioxide 35 mmol/L (22-30); Chloride 109 mmol/L (98-107); Glucose 109 mg/dL (74-99); Non-African American GFR(CKD) >90 (>60 ml/min/1.73 sqM); Potassium 3.7 mmol/L (3.5-5.1); Sodium 139 mmol/L (137-145)
[2023-12-16] MEDS ORDERED: Potassium Replacement Protocol 1 EACH MISC MISCELLANE PRN (06:22)
[2023-12-16] MEDS: POTASSIUM BICARBONATE/CIT AC 20 MEQ TABLET.EFF NG-TUBE SCH (06:45)
--- NOTE | 2023-12-16 07:46 | P.PN ---
Subjective Progress Note Date: 12/16/23 PROGRESS NOTE The patient is a 73-year-old female who presented for an exploratory laparotomy sigmoid colectomy, diverting colostomy who had postoperative hypotension. She had episodes of atrial fibrillation. She is extubated on BiPAP, feeling better. Her blood pressure stable. Continues to be in sinus mechanism. Her urinary output is good. She denies any dizziness or palpitations. She underwent bronchoscopy for left lung collapse. She had no further episodes of atrial fibrillation. Her echocardiogram showed ejection fraction of 50%. She had mild to moderate mitral regurgitation. Medications: Amiodarone 200 mg twice a day, IV heparin, Eraxis, meropenem PHYSICAL EXAMINATION: Blood pressure 100/49 heart rate 70 LUNGS: Decreased breath sounds on the left HEART: [Regular rate and rhythm, S1, S2. No S3. Systolic ejection murmur] ABDOMEN: [Soft, nontender, no organomegaly, dry] EXTREMETIES: [+2 on the left edema status post right AKA] LAB: Hemoglobin 7.9, WBC 10.7, BUN 29, creatinine 0.49 IMPRESSION: 1. Status post abdominal surgery 2. Paroxysmal atrial fibrillation 3. Right lung collapse status post bronchoscopy 4. Status post right AKA 5. Fluid overload PLAN: 1. Continue amiodarone and decrease to once a day on December 18 2. Change to oral anticoagulation if no further intervention is scheduled 3. Follow renal functions 4. IV diuretics Objective - Vital Signs Vital signs: Vital Signs Temp 98.0 F 12/16/23 04:00 Pulse 76 12/16/23 07:00 Resp 21 12/16/23 07:00 BP 100/49 12/16/23 07:00 Pulse Ox 97 12/16/23 07:00 FiO2 40 12/16/23 07:00 Intake & Output 12/15/23 12/16/23 12/16/23 18:59 06:59 18:59 Intake Total 1366.000 240 Output Total 2580 552 Balance -1214.000 -312 Weight 97 kg Intake: IV 450 240 0.9 150 240 Anidulafungin 100 mg In 100 Sodium Chloride 0.9% 100 ml @ 84 mls/hr IVPB DAILY @1600 [facility] Rx#:[id number] Meropenem 1 gm In Sodium 200 Chloride 0.9% 100 ml @ 33 .3 mls/hr IVPB Q8HR [facility] Rx#:[id number] Intake, IV Titration 250.000 Amount Heparin Sod,Pork in 0.45% 250.000 NaCl 25,000 unit In 0.45 % NaCl 1 250ml.bag @ 10. 661 UNITS/KG/HR 10 mls/hr IV .Q24H [facility] Rx#: [id number] Tube Feeding 576 Other 90 Output: Urine 2230 552 Stool 350 Other: Voiding Method Indwelling Catheter Indwelling Catheter ABP, PAP, CO, CI - Last Documented Arterial Blood Pressure 95/53 - Labs CBC & Chem 7: 12/16/23 05:00 12/16/23 05:00 Labs: Abnormal Lab Results - Last 24 Hours (Table) 12/15/23 12/15/23 12/15/23 Range/Units 13:55 18:38 23:39 WBC (3.8-10.6) k/uL RBC (3.80-5.40) m/uL Hgb (11.4-16.0) gm/dL Hct (34.0-46.0) % MCHC (31.0-37.0) g/dL RDW (11.5-15.5) % Neutrophils # (1.3-7.7) k/uL APTT 72.4 H (22.0-30.0) sec Chloride (98-107) mmol/L Carbon Dioxide (22-30) mmol/L BUN (7-17) mg/dL Creatinine (0.52-1.04) mg/dL Glucose (74-99) mg/dL POC Glucose (mg/dL) 116 H 116 H (70-110) mg/dL Calcium (8.4-10.2) mg/dL 12/16/23 12/16/23 12/16/23 Range/Units 05:00 05:00 05:00 WBC 10.7 H (3.8-10.6) k/uL RBC 2.97 L (3.80-5.40) m/uL Hgb 7.9 L (11.4-16.0) gm/dL Hct 25.6 L (34.0-46.0) % MCHC 30.9 L (31.0-37.0) g/dL RDW 24.5 H (11.5-15.5) % Neutrophils # 8.7 H (1.3-7.7) k/uL APTT 68.8 H (22.0-30.0) sec Chloride 109 H (98-107) mmol/L Carbon Dioxide 35 H (22-30) mmol/L BUN 29 H (7-17) mg/dL Creatinine 0.49 L (0.52-1.04) mg/dL Glucose 109 H (74-99) mg/dL POC Glucose (mg/dL) (70-110) mg/dL Calcium 7.4 L (8.4-10.2) mg/dL
--- NOTE | 2023-12-16 07:55 | XR ---
EXAMINATION TYPE: XR chest 1V portable DATE OF EXAM: 12/16/2023 Comparison: 12/15/2023 Clinical History: 73-year-old female ICU follow-up, recurrent mucous plugging Findings: Right IJ CVC tip and left PICC tip both at the mid SVC level. Heart normal size. Some interval worsen ing aeration at the left lower lung with increasing size of a now moderate effusion and with adjacent opacity. Aeration at the right base is improving. Impression: Interval worsening aeration and volume loss at the left lower lung. Suspect increasing atelectasis an d now moderate effusion.
[2023-12-16] MEDS: FUROSEMIDE 10 MG/ML 4 ML VIAL IV STA (08:02)
--- NOTE | 2023-12-16 11:40 | P.PN ---
Subjective Progress Note Date: 12/16/23 This is a 74-year-old female patient who was brought into the intensive care unit after an extensive abdominal surgery. The patient underwent exploratory laparotomy and sigmoid colectomy and diverging colostomy. The patient was emergently taken to the operating room this afternoon as the patient was bec oming hypotensive and she had developed persistent leukocytosis intermittent fevers consistent with sepsis and septic shock. The patient was also becoming hypotensive despite being resuscitated with IV fluids and the patient preoperatively received a total of 3 L of IV fluids. An emergent surgical exploration was indicated. 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 At this point in time, the patient is sedated and the patient is currently on propofol. She is intubated on mechanical ventilator and she is on assist- control mode at a rate of 12, tidal volume of 400, FiO2 of 100% and a PEEP of 5. Chest x-ray shows a right IJ triple-lumen catheter. ET tube is in good loca tion. No airspace disease or consolidation. The blood gases showed a pH of 7.22 with a pCO2 of 51 and pO2 of 255. The patient is currently on no pressors and urine output is quite diminished in the order of 10 to 20 cc since arrival from the operating room. The patient is on IV cefepime and Flagyl. Received a total of 2 unit PRBC intraop 12/07/2023, I am seeing the patient for a follow-up in the intensive care unit. The patient is currently postop day #1. The patient remains intubated on the mechanical ventilator. This morning, the patient is on propofol which is running at 30 mcg/kg/min. She was resuscitated with IV fluids. She was maintained on normal saline at rate of 150 cc an hour and norepinephrine was also added overnight and currently norepinephrine is running at 0.07 mcg/kg/min. Her urine output is in the order of 10 to 20 cc an hour. Overall fluid balance over the past 24 hours has been +3.6 L. The patient remains on a combination of cefepime and Flagyl. The blood work from today shows a WBC count of 37.4, hemoglobin 10.7 and platelet count of 499. BUN is at 15 with a creatinine of 0.8. Sodium is at 143 from yesterday. Repeat electrolytes are still pending for now. Meanwhile, the patient remains intubated on mechanical ventilator. This morning, she is on assist-control mode at rate of 24, tidal volume of 400, FiO2 is at 55% with a PEEP of 5. The blood gas shows a pH of 7.38 with a pCO2 of 31 and pO2 of 119. Review of the chest x-ray from this morning shows adequate positioning of the orotracheal tube. This may need to be pushed in by 1 cm. The patient has a small atelectasis/left-sided pleural effusion. Otherwise, the right lung is essentially clear at this point in time. Antibiotic coverage includes a combination of cefepime and Flagyl. The patient will need Dilaudid for pain control. She is on heparin subcu for DVT prophylaxis. She is resting comfortably in bed. No other significant events overnight. Currently she is afebrile. The wound VAC is in place. Colostomy site is not fully functional at this point in time. Abdomen is soft. 12/08/2023, the patient remains intubated on mechanical ventilator and she is in the intensive care unit postop day #2. The patient remains on a mechanical ventilator. She is currently on assist-control mode with rate of 24, tidal volume of 400, FiO2 of 50% with a PEEP of 5. The blood gases from this morning showed a pH of 7.28 with a pCO2 of 32 and pO2 of 105. The chest x-ray was r eviewed and shows evidence of left basilar effusion/atelectasis. Orotracheal tube is in good location. The patient is triple-lumen catheter in her right IJ. Unfortunately, at around 3 AM this morning, the patient went into A-fib RVR and the patient became profoundly hypotensive. The patient progressively required higher dose of norepinephrine and currently norepinephrine is running at 0.2 mcg/kg/min and her mean arterial pressure is around 64. At the same time, the patient received treatment for her new onset atrial fibrillation. She was given an amiodarone bolus and currently she is on amiodarone at 0.5 mg/min. Based on her underlying hypotension. The patient was thought to hemodynamically unstable with A-fib RVR. The patient received cardioversion on 3 separate occasions using 120 J, 150 J and 200 J. Those attempts failed and the patient remained in atrial fibrillation. Her current heart rate is running at around 150 beats a minute, irregular. Urine output has dropped and the patient is producing only 10 cc an hour. At the same time, the patient's white cell count is up to 33.3 with a hemoglobin 12.1 and platelet count of 412. NG tube is in place. Output is minimal. Abdomen remains soft. The wound VAC is still in place. There is some liquidy stool material in the colostomy bag. No abdominal distention. The patient has been developing progressive edema and upper extremities in the left lower extremity. 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 Rest of the electrolytes show a sodium level of 143, serum bicarb is down to 12, anion gap is at 6, BUN is at 17 with a creatinine of 0.8. Magnesium level is at 1.9 with a calcium level of 7.9. The patient remains on IV cefepime and Flagyl. Urine culture from 12/04/2023 was positive for Klebsiella pneumoniae. She is currently afebrile. Propofol is running at 35 mcg/kg/min. The patient has been adequately sedated for now. Patient was reevaluated today on 12/09/2023, remains intubated and mechanically ventilated. On assist-control rate of 24 tidal volume 400 FiO2 50% and PEEP of 5. ABG showed a pO2 of 128 pCO2 35 pH 7.39. His FiO2 was cut down to 40% instead of 50%. Patient remained on multiple drips including norepinephrine, 0.04 mcg/kg/min, propofol at 35 mcg/kg/min, vasopressin at 0.03 units/min, D5W with 3 A of bicarb running at 150 cc/h. Patient is receiving vancomycin and Merrem. Patient has a left IJ triple-lumen catheter and left radial arterial line. Urine is positive Klebsiella, blood cultures were noted to be also positive for gram-negative bacilli. Most likely Klebsiella. Patient is on Merrem and she is on vancomycin patient is now postoperative day #3. Patient received 2 units of packed RBCs, since admission, hemoglobin now is 9.8, hemoglobin went as low as 7.4 on 12/04 labs today showed PTT of 57.4, basic metabolic profile is normal except for low potassium of 3.0 bicarb is 16, renal profile is normal WBC count is 28.5 hemoglobin is 9.8 urine cultures are positive for Klebsiella pneumoniae. Nutrition hicks the patient is receiving vital HP 10 cc/h. Patient remains in atrial fibrillation, rate seems to be reasonably controlled Patient was reevaluated today on 12/10/2023, remains in the ICU, intubated and mechanically ventilated. Earlier this morning I was made aware of the patient's chest x-ray showing complete collapse of the left lung, and tracheal deviation to the ipsilateral side. This was clearly consistent with mucous plugging involving the left mainstem bronchus. Hence the patient underwent bronchoscopy, suctioning of the mucous plugs, and bronchoalveolar lavage of the left upper lobe lingula and left lower lobe. Please refer to the full operative report regarding this procedure. Patient remains intubated, mechanically ventilated, she is on assist-control rate of 24 tidal volume 400 FiO2 is now 50% PEEP of 10 and I cut it down to 8. Patient remains on multiple drips including norepinephrine at 0.06 mcg/kg/min vasopressin at 0.04 units/h, bicarb drip which I have discontinued today, Cardizem drip at 5 mg/h. Patient is also on heparin drip, propofol at 15 mcg/kg/min. Antibiotics hicks remains on Merrem for Kle bsiella infection involving urine and blood. Chest x-ray as noted above, patient had complete opacification of the left lung, however after bronchoscopy and BAL significant improvement was noted and aeration of left lung significantly improved. ABG this morning on 40% showed a pO2 of 55 pCO2 48 and pH of 7.39 BBC count is 19.7, improving hemoglobin is 9.1. Platelets 253. ASIC metabolic profile is normal and renal profile is normal Patient was placed today on 12/11/2023, remains in the ICU, intubated and mechanically ventilated, sedated. On assist-control rate of 24 tidal volume 400 FiO2 50% and PEEP of 8 patient is requiring hemodynamic support with vasopressin 0.04 units, norepinephrine at 0.03 mcg/kg/min, patient is nutritionally supported with vital HP at 53 mL/h. ABG showed a pO2 of 96 pCO2 39 pH of 7.48. Patient remains on vancomycin and Merrem, urine output is about 40 cc/h hence I recommended Lasix to be given today 40 mg IV push x 1. Patient has a functioning ostomy, and she continues to have a wound VAC in place. CODE STATUS has been changed to DNR, yesterday, the patient underwent a bronchoscopy for complete opacification of the left lung, cultures from the BAL are pending, on today's chest x-ray there is minimal atelectasis in the left midlung, left lung remains relatively fully expanded Patient was reevaluated today on 12/12/2023, remains in the ICU intubated and mechanically ventilated. Patient is still requiring pressors, still on assist- control rate of 24 tidal volume 400 FiO2 45% PEEP is 8 and I cut it down to 6 today. ABG showed a pO2 of 105 pCO2 37 pH of 7.52 patient has been off propofol for the last 24 hours, still receiving heparin, she is on vasopressin at 0.02, and on norepinephrine at 0.01 mcg/kg/min. Antibiotics hicks, patient remains on Merrem and Eraxis. Patient is arousable, opens her eyes, extremely weak, however she is able to squeeze hands only. Continues to have leukocytosis with WBC count of 16.1 hemoglobin is 8.6, basic metabolic profile is normal. Nutrition hicks, patient remains on vital HP at 53/53 cc/h. Plan today on this patient is to continue patient off any sedation, and hopefully give the patient a trial of pressure support and CPAP, I do not believe the patient is ready to be extubated, but will start at least at times of weaning trials with pressure support mode of mechanical ventilation Patient was evaluated today on 12/13/2023, remains in the ICU, intubated and mechanically ventilated, patient is on assist-control rate of 24 tidal volume 400 FiO2 45% and PEEP of 6. ABG was done this morning. Overall the patient has not shown any significant change in the last few days, remains off sedation, pat ient is arousable, follows simple instructions like squeezing hands and wiggling toes. Hence I plan to give the patient today a trial of pressure support of 12 and CPAP, patient is still requiring a tiny bit of norepinephrine at 0.01 mcg/kg/min, patient remains on vital HP at 53 cc/h, and on heparin drip. Cardiac hicks, patient is on Merrem. Patient looks edematous and swollen, I recommended Lasix 40 mg IV push x 1 today chest x-ray is showing small left pleural effusion and atelectasis.WBC count is 15.1 hemoglobin 8.6. Basic metabolic profile is normal. BUN and creatinine are normal. Patient presented today on 12/14/2023, patient remains in the ICU, remains intubated and mechanically ventilated, on assist-control rate of 24 tidal volume 400 FiO2 35% and PEEP of 6. ABG not done today. Patient remains on antibiotics in the form of Eraxis and Merrem.Patient had Romelia and bronchoalveolar lavage, and she had Klebsiella pneumonia in her urine chest x-ray continues to show some minimal left basilar atelectasis. WBC count is 13.5 hemoglobin is 8.8, PTT is 44 basic metabolic profile is normal renal profile is normal, patient is not requiring any pressors anymore. Continues to improve with intermittent Lasix and should be given more Lasix today. Patient went on pressure support and CPAP almost 8 hours yesterday, she was transitioned to assist-control mode of mechanical ventilation overnight, and this morning early this morning, she was placed back on pressure support and CPAP. Hence the patient will be extubated to BiPAP, and we will continue to monitor the patient in the ICU. Although patient's CODE STATUS has been changed to no code, and not to reintubate if she fails extubation patient was reevaluated today on 12/15/2023, remains in the ICU, patient has been on BiPAP all the day yesterday, however at night she was placed on nasal cannula, apparently the patient kept taking her BiPAP off, and the decision was made by the nurses to place on nasal cannula, she tolerated nasal cannula overnight quite well, however this morning her chest x-ray showed complete wi dening of the left lung. Patient developed mucous plugging again involving the left mainstem bronchus and the left lung,, this required bronchoscopy done at bedside with IV conscious sedation, and I was able to remove all the mucous plugs from the left lung, and follow-up chest x-ray postoperatively showed complete reexpansion of the left lung. Meantime the patient remains on Lasix 40 mg IV push daily and I have been ordering that on a daily basis, patient will receive Ativan on BiPAP to keep her wearing the BiPAP overnight, presently her BiPAP is 16/6/50%. IV fluids at KVO, she is on vital HP at 40 cc/h which will be restarted. Labs today show WBC count of 11 hemoglobin 8.6 hematocrit 27.8 basic metabolic profile is normal renal profile is normal. Patient remains on amiodarone, Eraxis, heparin, Ativan 0.5 mg every 4 hours as needed while she is on BiPAP, she is also on Merrem, pantoprazole 40 mg IV push daily, patient has been off norepinephrine since last night CBC showed WC of 11 hemoglobin 8.6 PTT is 36.7 basic metabolic profile is normal BUN is 28 creatinine 0.44 The patient is seen today December 16, 2023 in follow-up in the intensive care unit. She is currently sitting up in bed. Awake. Currently on BiPAP 12/ and 40% FiO2. She remains on a heparin drip. Normal saline it keep mean open. Chest x-ray continues to show worsening aeration and volume loss in the left lower lung. She is status post 2 units of packed red blood cells this admission. Current hemoglobin 7.9. Platelets 338. White count 10.7. Sodium 139. Potassium 3.7. Bicarb 35. BUN 29. Creatinine 0.49. Glucose 109. She continues on bronchodilators. Eraxis and meropenem. She is receiving chest physiotherapy in an attempt to keep the left lung open. She did undergo bedside bronchoscopy yesterday with improved aeration however within 24 hours there is new left lower lobe collapse. She is not to be reintubated and remains a DO NOT RESUSCITATE CODE STATUS. Objective - Vital Signs Vital signs: Vital Signs Temp 97.9 F 12/16/23 08:00 Pulse 76 12/16/23 11:00 Resp 15 12/16/23 11:00 BP 99/60 12/16/23 11:00 Pulse Ox 98 12/16/23 11:00 FiO2 40 12/16/23 08:00 Intake & Output 12/15/23 12/16/23 12/16/23 18:59 06:59 18:59 Intake Total 1366.000 240 410 Output Total 2580 552 1650 Balance -1214.000 -312 -1240 Weight 97 kg 97 kg Intake: IV 450 240 180 0.9 150 240 80 Anidulafungin 100 mg In 100 Sodium Chloride 0.9% 100 ml @ 84 mls/hr IVPB DAILY @1600 [facility] Rx#:[id number] Meropenem 1 gm In Sodium 200 100 Chloride 0.9% 100 ml @ 33 .3 mls/hr IVPB Q8HR [facility] Rx#:[id number] Intake, IV Titration 250.000 Amount Heparin Sod,Pork in 0.45% 250.000 NaCl 25,000 unit In 0.45 % NaCl 1 250ml.bag @ 10. 661 UNITS/KG/HR 10 mls/hr IV .Q24H [facility] Rx#: [id number] Tube Feeding 576 200 Other 90 30 Output: Urine 2230 552 1650 Stool 350 Other: Voiding Method Indwelling Catheter Indwelling Catheter Indwelling Catheter ABP, PAP, CO, CI - Last Documented Arterial Blood Pressure 95/53 - Exam GENERAL EXAM: Alert, 73-year-old female, on BiPAP 12/6 and 40% FiO2, fairly comfortable in no apparent distress. HEAD: Normocephalic. EYES: Normal reaction of pupils, equal size. NOSE: Clear with pink turbinates. THROAT: No erythema or exudates. NECK: No masses, no JVD. CHEST: No chest wall deformity. LUNGS: Equal air entry with crackles, diminished in the left lung base. CVS: S1 and S2 normal with no audible murmur, irregular rhythm. ABDOMEN: No hepatosplenomegaly, normal bowel sounds, no guarding or rigidity. SPINE: No scoliosis or deformity SKIN: No rashes CENTRAL NERVOUS SYSTEM: No focal deficits, tone is normal in all 4 extremities. EXTREMITIES: Right [id number] amputation. Significant swelling of the left lower extremity. Peripheral pulses are intact. - Labs CBC & Chem 7: 12/16/23 05:00 12/16/23 05:00 Labs: Abnormal Lab Results - Last 24 Hours (Table) 12/15/23 12/15/23 12/15/23 Range/Units 13:55 18:38 23:39 WBC (3.8-10.6) k/uL RBC (3.80-5.40) m/uL Hgb (11.4-16.0) gm/dL Hct (34.0-46.0) % MCHC (31.0-37.0) g/dL RDW (11.5-15.5) % Neutrophils # (1.3-7.7) k/uL APTT 72.4 H (22.0-30.0) sec Chloride (98-107) mmol/L Carbon Dioxide (22-30) mmol/L BUN (7-17) mg/dL Creatinine (0.52-1.04) mg/dL Glucose (74-99) mg/dL POC Glucose (mg/dL) 116 H 116 H (70-110) mg/dL Calcium (8.4-10.2) mg/dL 12/16/23 12/16/23 12/16/23 Range/Units 05:00 05:00 05:00 WBC 10.7 H (3.8-10.6) k/uL RBC 2.97 L (3.80-5.40) m/uL Hgb 7.9 L (11.4-16.0) gm/dL Hct 25.6 L (34.0-46.0) % MCHC 30.9 L (31.0-37.0) g/dL RDW 24.5 H (11.5-15.5) % Neutrophils # 8.7 H (1.3-7.7) k/uL APTT 68.8 H (22.0-30.0) sec Chloride 109 H (98-107) mmol/L Carbon Dioxide 35 H (22-30) mmol/L BUN 29 H (7-17) mg/dL Creatinine 0.49 L (0.52-1.04) mg/dL Glucose 109 H (74-99) mg/dL POC Glucose (mg/dL) (70-110) mg/dL Calcium 7.4 L (8.4-10.2) mg/dL Assessment and Plan Assessment: Status post exploratory laparotomy colectomy and diverting colostomy and debridement of cutaneous fistula December 06, 2023 Abdominal sepsis and septic shock New onset atrial fibrillation with RVR Gram-negative bacteremia Klebsiella pneumonia urinary tract infection Leukocytosis secondary to above, improving. Acute hypoxic and hypercapnic respiratory failure secondary to above Left lung collapse secondary to mucous plugging, status post bronchoscopy and lavage of left lung, done 12/10/2023, also done on 12/15/2023 None anion gap metabolic acidosis, resolved, bicarb drip was discontinued today History of previous right above-knee amputation Left buttocks unstageable pressure ulcer Hydropic gallbladder with multiple gallstones Adrenal nodules Strongly suspect critical illness polyneuropathy Plan: The patient was seen and evaluated Chest x-ray, labs and medications reviewed Continue BiPAP support for now Continue chest physiotherapy Continue bronchodilators Continue antibiotics Continue diuretics Remains on a heparin drip Overall prognosis is quite poor DNI/DNR CODE STATUS We will continue to follow I have personally seen and examined the patient, performed the documentation and the assessment and plan as written. Number of minutes spent on the visit: 10.
[2023-12-16 11:42] LABS: Glucose,Whole Blood 109 mg/dL (70-110)
--- NOTE | 2023-12-16 14:20 | P.PN ---
Subjective Progress Note Date: 12/16/23 CHIEF COMPLAINT: Perforated diverticular disease with fistulization to the skin HISTORY OF PRESENT ILLNESS: The patient is a 48-eihi-[id number]-year-old female status post exploratory laparotomy, Magaña's procedure for colocutaneous fistula and septic shock. Patient on BiPAP. She is off of blood pressure support. She is on tube feeds for nutrition support. Afebrile. WBC is down from 11-10.7 Hgb 7.9 platelets 338 sodium is 139 potassium 3.7 creatinine 0.49 Patient received another dose of IV Lasix today PHYSICAL EXAM: VITAL SIGNS: Reviewed GENERAL: no acute distress. HEENT: No sclera icterus. Extraocular movements grossly intact. Moist buccal mucosa. Head is atraumatic, normocephalic. Hears conversational speech. No nasal drainage. NECK: Supple without lymphadenopathy. CHEST: Non-labored respirations and equal bilateral excursions. CARDIOVASCULAR: Palpable 2+ radial pulses. ABDOMEN: Soft. Nondistended. Prevana wound vac intact and to wall suction. Stoma beefy red. Stool in ostomy bag. Left lower abdomen below ostomy is also a wound VAC. MUSCULOSKELETAL: No clubbing or cyanosis. NEUROLOGIC: No focal or lateralizing signs. Cranial nerves II through XII grossly intact. PSYCH: Intubated SKIN: Well perfused. Good skin turgor. ASSESSMENT: 1. Septic shock 2. 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 Lack of general medical care 4. Complicated left groin wound, 4 cm 5. Intermesenteric abscess, pelvis 6. Left inguinal hernia 7. 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 Signing provider agrees with the documented findings, assessment, and plan of care. Objective - Vital Signs Vital signs: Vital Signs Temp 97.9 F 12/16/23 08:00 Pulse 79 12/16/23 13:00 Resp 23 12/16/23 13:00 BP 102/55 12/16/23 13:00 Pulse Ox 98 12/16/23 13:00 FiO2 40 12/16/23 11:26 Intake & Output 12/15/23 12/16/2324 18:59 06:59 18:59 Intake Total 1366.000 240 840 Output Total 2580 552 2100 Balance -1214.000 -312 -1260 Weight 97 kg 97 kg Intake: IV 450 240 220 0.9 150 240 120 Anidulafungin 100 mg In 100 Sodium Chloride 0.9% 100 ml @ 84 mls/hr IVPB DAILY @1600 [facility] Rx#:[id number] Meropenem 1 gm In Sodium 200 100 Chloride 0.9% 100 ml @ 33 .3 mls/hr IVPB Q8HR [facility] Rx#:[id number] Intake, IV Titration 250.000 250 Amount Heparin Sod,Pork in 0.45% 250.000 250 NaCl 25,000 unit In 0.45 % NaCl 1 250ml.bag @ 10. 661 UNITS/KG/HR 10 mls/hr IV .Q24H [facility] Rx#: [id number] Tube Feeding 576 310 Other 90 60 Output: Urine 2230 552 2100 Stool 350 Other: Voiding Method Indwelling Catheter Indwelling Catheter Indwelling Catheter ABP, PAP, CO, CI - Last Documented Arterial Blood Pressure 95/53 - Labs CBC & Chem 7: 12/16/23 05:00 12/16/23 05:00 Labs: Abnormal Lab Results - Last 24 Hours (Table) 12/15/23 12/15/23 12/15/23 Range/Units 13:55 18:38 23:39 WBC (3.8-10.6) k/uL RBC (3.80-5.40) m/uL Hgb (11.4-16.0) gm/dL Hct (34.0-46.0) % MCHC (31.0-37.0) g/dL RDW (11.5-15.5) % Neutrophils # (1.3-7.7) k/uL APTT 72.4 H (22.0-30.0) sec Chloride (98-107) mmol/L Carbon Dioxide (22-30) mmol/L BUN (7-17) mg/dL Creatinine (0.52-1.04) mg/dL Glucose (74-99) mg/dL POC Glucose (mg/dL) 116 H 116 H (70-110) mg/dL Calcium (8.4-10.2) mg/dL 12/16/23 12/16/23 12/16/23 Range/Units 05:00 05:00 05:00 WBC 10.7 H (3.8-10.6) k/uL RBC 2.97 L (3.80-5.40) m/uL Hgb 7.9 L (11.4-16.0) gm/dL Hct 25.6 L (34.0-46.0) % MCHC 30.9 L (31.0-37.0) g/dL RDW 24.5 H (11.5-15.5) % Neutrophils # 8.7 H (1.3-7.7) k/uL APTT 68.8 H (22.0-30.0) sec Chloride 109 H (98-107) mmol/L Carbon Dioxide 35 H (22-30) mmol/L BUN 29 H (7-17) mg/dL Creatinine 0.49 L (0.52-1.04) mg/dL Glucose 109 H (74-99) mg/dL POC Glucose (mg/dL) (70-110) mg/dL Calcium 7.4 L (8.4-10.2) mg/dL
[2023-12-16 17:49] LABS: Glucose,Whole Blood 112 mg/dL (70-110)
[2023-12-16 23:06] LABS: Glucose,Whole Blood 122 mg/dL (70-110)
--- NOTE | 2023-12-16 23:19 | P.PN ---
Subjective Progress Note Date: 12/16/23 Principal diagnosis: Reason for follow-up is complicated diverticulitis with colocutaneous fistula Patient is a 73-year-old female who was brought into the ER at [facility] for the patient complaining of generalized weakness patient noticed to have sacral pressure ulcer and also complicate diverticulitis with a fistula to the left lower abdominal wall.Patient was taken to the OR on 12/06/2023 and this patient was status post exploratory laparotomy with sigmoid colectomy takedown of the colocutaneous fistula left inguinal hernia repair and peritoneal lavage. On today's evaluation that is 12/16/2023,the patient remains to be afebrile, patient is on BiPAP requiring 40% supplemental oxygen patient seem to be slightly more awake and try to answer some question no vomiting diarrhea with the changes reported by the nursing staff. The patient white count is down to 10.7, creatinine 0.49 Objective - Vital Signs Vital signs: Vital Signs Temp 97.9 F 12/16/23 08:00 Pulse 79 12/16/23 12:00 Resp 20 12/16/23 12:00 BP 97/42 12/16/23 12:00 Pulse Ox 97 12/16/23 12:00 FiO2 40 12/16/23 11:26 Intake & Output 12/15/23 12/16/23 12/16/23 18:59 06:59 18:59 Intake Total 1366.000 240 515 Output Total 2580 552 1925 Balance -1214.000 -312 -1410 Weight 97 kg 97 kg Intake: IV 450 240 200 0.9 150 240 100 Anidulafungin 100 mg In 100 Sodium Chloride 0.9% 100 ml @ 84 mls/hr IVPB DAILY @1600 [facility] Rx#:[id number] Meropenem 1 gm In Sodium 200 100 Chloride 0.9% 100 ml @ 33 .3 mls/hr IVPB Q8HR [facility] Rx#:[id number] Intake, IV Titration 250.000 Amount Heparin Sod,Pork in 0.45% 250.000 NaCl 25,000 unit In 0.45 % NaCl 1 250ml.bag @ 10. 661 UNITS/KG/HR 10 mls/hr IV .Q24H [facility] Rx#: [id number] Tube Feeding 576 255 Other 90 60 Output: Urine 2230 552 1925 Stool 350 Other: Voiding Method Indwelling Catheter Indwelling Catheter Indwelling Catheter ABP, PAP, CO, CI - Last Documented Arterial Blood Pressure 95/53 - Exam GENERAL DESCRIPTION: An elderly female lying in bed in no distress RESPIRATORY SYSTEM: Unlabored breathing , decreased breath sounds at bases HEART: S1 S2 regular rate and rhythm , ABDOMEN: Soft , no tenderness EXTREMITIES: No edema feet - Labs CBC & Chem 7: 12/16/23 05:00 12/16/23 05:00 Labs: Abnormal Lab Results - Last 24 Hours (Table) 12/15/23 12/15/23 12/15/23 Range/Units 13:55 18:38 23:39 WBC (3.8-10.6) k/uL RBC (3.80-5.40) m/uL Hgb (11.4-16.0) gm/dL Hct (34.0-46.0) % MCHC (31.0-37.0) g/dL RDW (11.5-15.5) % Neutrophils # (1.3-7.7) k/uL APTT 72.4 H (22.0-30.0) sec Chloride (98-107) mmol/L Carbon Dioxide (22-30) mmol/L BUN (7-17) mg/dL Creatinine (0.52-1.04) mg/dL Glucose (74-99) mg/dL POC Glucose (mg/dL) 116 H 116 H (70-110) mg/dL Calcium (8.4-10.2) mg/dL 12/16/23 12/16/23 12/16/23 Range/Units 05:00 05:00 05:00 WBC 10.7 H (3.8-10.6) k/uL RBC 2.97 L (3.80-5.40) m/uL Hgb 7.9 L (11.4-16.0) gm/dL Hct 25.6 L (34.0-46.0) % MCHC 30.9 L (31.0-37.0) g/dL RDW 24.5 H (11.5-15.5) % Neutrophils # 8.7 H (1.3-7.7) k/uL APTT 68.8 H (22.0-30.0) sec Chloride 109 H (98-107) mmol/L Carbon Dioxide 35 H (22-30) mmol/L BUN 29 H (7-17) mg/dL Creatinine 0.49 L (0.52-1.04) mg/dL Glucose 109 H (74-99) mg/dL POC Glucose (mg/dL) (70-110) mg/dL Calcium 7.4 L (8.4-10.2) mg/dL Assessment and Plan (1) Diverticulitis of intestine, part unspecified, without perforation or abscess without bleeding Current Visit: Yes Status: Acute Code(s): K57.92 - DVTRCLI OF INTEST, PART UNSP, W/O PERF OR ABSCESS W/O BLEED SNOMED Code(s): 766984794 (2) Leukocytosis Current Visit: Yes Status: Acute Code(s): D72.829 - ELEVATED WHITE BLOOD CELL COUNT, UNSPECIFIED SNOMED Code(s): 106506956 (3) Sepsis Current Visit: Yes Status: Acute Code(s): A41.9 - SEPSIS, UNSPECIFIED ORGANISM SNOMED Code(s): 91827329 (4) Gram-negative bacteremia Current Visit: Yes Status: Acute Code(s): R78.81 - BACTEREMIA SNOMED Code(s): 874506407648 Plan: 1patient with complicated diverticulitis with evidence of fistulous communication to the skin left lower quadrant area and concern for possible extension to the bladder, will need to cover for the polymicrobial jessie associated with such condition including enteric gram-negative both aerobes and anaerobes 2-patient also have a pressure ulcer but no significant surrounding cellulitis, wound care has been consulted continue local wound care per them 3gram-negative 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 with ID sensitivities pending, repeat blood culture has been negative so far 3-patient is status post extensive surgery including 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 5patient sputum culture grew Romelia bronchoscopy culture also grew Romelia as well as abdominal culture growing Romelia albicans 6-patient remains to be afebrile and white count almost normalized, patient is currently covered with meropenem along with Eraxis and monitor clinical course closely Dictation was produced using [employer] dictation software. please excuse any grammatical, word or spelling errors.
[2023-12-17 04:54] LABS: Anisocytosis Marked; Basophils % (A) 0 %; Eosinophils # (A) 0.3 k/uL (0-0.7); Eosinophils % (A) 3 %; HCT 26.5 % (34.0-46.0); HGB 8.1 gm/dL (11.4-16.0); Hypochromasia Moderate; Lymphocytes % (A) 10 %; MCH 26.5 pg (25.0-35.0); MCHC 30.6 g/dL (31.0-37.0); MCV 86.6 fL (80.0-100.0); Macrocytosis Slight; Mean Platelet Volume 8.5; Microcytosis Slight; Monocytes # (A) 0.3 k/uL (0-1.0); Monocytes % (A) 3 %; Neutrophils # (A) 8.3 k/uL (1.3-7.7); Neutrophils % (A) 83 %; Platelet Count 373 k/uL (150-450); RBC 3.06 m/uL (3.80-5.40); RDW 24.6 % (11.5-15.5)
[2023-12-17 05:17] LABS: Chloride 107 mmol/L (98-107)
[2023-12-17 05:18] LABS: African American GFR (CKD) >90 (>60 ml/min/1.73 sqM); Anion Gap 0 mmol/L; Blood Urea Nitrogen 28 mg/dL (7-17); Calcium 7.8 mg/dL (8.4-10.2); Carbon Dioxide 32 mmol/L (22-30); Glucose 113 mg/dL (74-99); Non-African American GFR(CKD) >90 (>60 ml/min/1.73 sqM); Potassium 3.6 mmol/L (3.5-5.1); Sodium 139 mmol/L (137-145)
[2023-12-17 05:55] LABS: Glucose,Whole Blood 119 mg/dL (70-110)
[2023-12-17] MEDS: POTASSIUM BICARBONATE/CIT AC 20 MEQ TABLET.EFF NG-TUBE SCH (06:18)
--- NOTE | 2023-12-17 07:50 | P.PN ---
Subjective Progress Note Date: 12/17/23 PROGRESS NOTE The patient is a 73-year-old female who presented for an exploratory laparotomy sigmoid colectomy, diverting colostomy who had postoperative hypotension. She had episodes of atrial fibrillation. She is extubated on BiPAP, feeling better. Her blood pressure stable. Continues to be in sinus mechanism. Her urinary output is good. She denies any dizziness or palpitations. She underwent bronchoscopy for left lung collapse. She had no further episodes of atrial fibrillation. Her echocardiogram showed ejection fraction of 50%. She had mild to moderate mitral regurgitation. December 16: The patient continues to be on the BiPAP. She is hemodynamically stable. Continues to be on IV heparin. Her chest x-ray shows total collapse of the left lung. She has no evidence of atrial fibrillation. Her urine output is stable. There is no evidence of malignant arrhythmia. Medications: Amiodarone 200 mg twice a day, IV heparin, Eraxis, meropenem PHYSICAL EXAMINATION: Blood pressure 102/50 heart rate 76 LUNGS: Decreased breath sounds on the left HEART: Regular rate and rhythm, S1, S2. No S3. Systolic ejection murmur ABDOMEN: Soft, nontender, no organomegaly, dry EXTREMETIES: +2 on the left edema status post right AKA LAB: Hemoglobin 8.1, WBC 10.0, BUN 28, creatinine 0.51 IMPRESSION: 1. Status post abdominal surgery 2. Paroxysmal atrial fibrillation 3. Left lung collapse status post bronchoscopy x 2 in the past 4. Status post right AKA 5. Fluid overload PLAN: 1. Continue amiodarone and decrease to once a day on December 18 2. Change to oral anticoagulation if no further intervention is scheduled 3. Follow renal functions 4. IV diuretics 5. Probable bronchoscopy today to remove probable mucous plug 6. Prognosis is guarded Objective - Vital Signs Vital signs: Vital Signs Temp 98.5 F 12/17/23 04:00 Pulse 75 12/17/23 06:00 Resp 25 H 12/17/23 06:00 BP 92/52 12/17/23 06:00 Pulse Ox 98 12/17/23 06:00 FiO2 40 12/17/23 04:30 Intake & Output 12/16/23 12/17/23 12/17/23 18:59 06:59 18:59 Intake Total 1425 1113.837 Output Total 2485 1100 Balance -1060 13.837 Weight 97 kg 92.8 kg Intake: IV 500 240 0.9 200 240 Anidulafungin 100 mg In 100 Sodium Chloride 0.9% 100 ml @ 84 mls/hr IVPB DAILY @1600 [facility] Rx#:[id number] Meropenem 1 gm In Sodium 200 Chloride 0.9% 100 ml @ 33 .3 mls/hr IVPB Q8HR [facility] Rx#:[id number] Intake, IV Titration 250 243.837 Amount Heparin Sod,Pork in 0.45% 250 243.837 NaCl 25,000 unit In 0.45 % NaCl 1 250ml.bag @ 10. 661 UNITS/KG/HR 10 mls/hr IV .Q24H [facility] Rx#: [id number] Tube Feeding 585 600 Other 90 30 Output: Urine 2485 850 Stool 250 Other: Voiding Method Indwelling Catheter Indwelling Catheter ABP, PAP, CO, CI - Last Documented Arterial Blood Pressure 95/53 - Labs CBC & Chem 7: 12/17/23 04:06 12/17/23 04:06 Labs: Abnormal Lab Results - Last 24 Hours (Table) 12/16/23 12/16/23 12/17/23 Range/Units 17:47 23:04 04:06 RBC (3.80-5.40) m/uL Hgb (11.4-16.0) gm/dL Hct (34.0-46.0) % MCHC (31.0-37.0) g/dL RDW (11.5-15.5) % Neutrophils # (1.3-7.7) k/uL APTT 51.3 H (22.0-30.0) sec Carbon Dioxide (22-30) mmol/L BUN (7-17) mg/dL Creatinine (0.52-1.04) mg/dL Glucose (74-99) mg/dL POC Glucose (mg/dL) 112 H 122 H (70-110) mg/dL Calcium (8.4-10.2) mg/dL 12/17/23 12/17/23 12/17/23 Range/Units 04:06 04:06 05:54 RBC 3.06 L (3.80-5.40) m/uL Hgb 8.1 L (11.4-16.0) gm/dL Hct 26.5 L (34.0-46.0) % MCHC 30.6 L (31.0-37.0) g/dL RDW 24.6 H (11.5-15.5) % Neutrophils # 8.3 H (1.3-7.7) k/uL APTT (22.0-30.0) sec Carbon Dioxide 32 H (22-30) mmol/L BUN 28 H (7-17) mg/dL Creatinine 0.51 L (0.52-1.04) mg/dL Glucose 113 H (74-99) mg/dL POC Glucose (mg/dL) 119 H (70-110) mg/dL Calcium 7.8 L (8.4-10.2) mg/dL
--- NOTE | 2023-12-17 08:33 | XR ---
EXAMINATION TYPE: XR chest 1V portable DATE OF EXAM: 12/17/2023 Comparison: 12/16/2023 Clinical History: 73-year-old female recurrent mucous plugging Findings: Right IJ CVC tip and left PICC tip both remain in the mid SVC level. NG tube courses below the diaphr agm. Recurrent white out of the left hemithorax with shift of the cardiomediastinum to the left side of the chest. Impression: Recurrent whiteout and volume loss on the left.
--- NOTE | 2023-12-17 10:23 | P.PN ---
Subjective Progress Note Date: 12/16/23 This is a pleasant 73 years old female who presents to the emergency room for lower abdominal fistula drainage, associated with generalized weakness. Patient looks awake alert but tired looking, pale. Feels generally weak. N has mild generalized abdominal pain and tenderness. No rebound tenderness. Blood with malodorous left lower abdominal fistula drainage with fecal material coming out. Patient also with right rotation. Patient also with unstageable sacral pressure ulcer. With some evidence of cellulitis. Patient is mildly confused. But no headache or weakness in upper or lower patient was hypotensive with a blood pressure/42, currently slightly better 96/43. Potassium is low 2.9, WBC elevated 23,000, hemoglobin 7.4. Creatinine 0.7. Liver enzymes unremarkable. CT of the abdomen pelvis showing sigmoid diverticulitis and proctitis. 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 Please refer to the report for more details. Patient was ordered received normal saline boluses. Currently on Normosol at 130 mL/h She received 1 dose of Zosyn and started on Flagyl. We are going to add cefepime for gram-negative coverage. 12/05/2023 Patient is awake and alert, generally weak and tired, mildly drowsy Denies abdominal pain or tenderness, she has fistula in the left lower abdomen She denies chest pain or dyspnea. No headache dizziness weakness or numbness. No breathing difficulty. And currently she is saturating well on room air. Blood pressure is still on the low side.but is improving while on IV fluid Glucose 65 and her fluids changed to D5 normal saline at 1 30 mL/h She is currently covered with cefepime and IV Flagyl and IV Protonix She has leukocytosis of 23,000, hemoglobin stable 7.9, low potassium been replaced. Magnesium is normal 2.0. B12 541, Elevated ESR 75 and CRP 25 Patient at moderate risk for her multiple medical problems. Because of this echocardiogram was requested and cardiology consulted for preop evaluation. 12/06/2023 Patient remains awake and oriented, mildly lethargic Patient today was supposed to go for surgery to fix her enteric fistula Blood pressure was on the low side this morning I got a call from the bedside nurse blood pressure was 68/32, a bolus of normal saline is provided as well as midodrine Blood pressure a little low after first bolus, where going to give her another bolus of 1 L follow-up with the blood pressure. 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 Plating Inspector eval into the patient for preop assessment and there is no contraindication to proceed with surgery. Patient remains on normal saline with 30 mL/h, cefepime, IV Flagyl and IV Protonix 12/07/2023 Patient s/p sigmoid colectomy and taken down the fistula with peritoneal lavage, creatinine descending colostomy pouch with rectum Gabriel procedure by surgery team Postoperatively and perioperatively patient was hypotensive, after the procedure she got intubated and sent to the intensive care unit and started on pressors Patient remains on excessive hydration She is making about 10 to 20 mL of urine output She remains on broad-spectrum antibiotics with IV cefepime and Flagyl Patient labs and vitals are reviewed 12/08/2023 Patient remains in the ICU in critical condition behavior management specialist around 3:00 she 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 Patient was started on amiodarone and heparin drip Also patient abdomen soft but she is becoming more anuric She still intubated on mechanical ventilation with assist-control Her leukocytosis is worse at 33,000 urine cultures grewing Klebsiella. Blood cultures positive for gram negative bacilli Her antibiotics was adjusted to meropenem and IV vancomycin. Her fluids running normal saline changed to sodium bicarb at 150 mL/h She is still on IV Protonix Her albumin is low so they are going to give her 1 dose of albumin IV if no improvement 12/09/2023 Patient remains in the ICU intubated and sedated She was still on pressors this morning on Levophed at 0.09, bicarbonate drip at 150 mL also vasopressin 0.03. She still has wound VAC in his abdomen. Patient blood pressure started improving 115/45 Potassium 3.4, WBC trending down to 28,000, hemoglobin 9.8. Albumin is 1.5 and patient 2 more bags of albumin 25 g to support her system as she has anasarca and significant swelling of the lower extremities. Patient remains also on broad-spectrum antibiotics with IV vancomycin and meropenem. She is also on Protonix. Discussed with staff. 12/10/2023 pt remains in the icu intubated and sedated pt chest xray showing left hemilthorax collapse pt requiring pressors, planning to wean down if possible c'w treatment for a fib with amiodaron and heparin drip still on broad spectrum antibioitc 12/11/2023 Patient felt to be improving although she still intubated in the ICU in critical condition and followed closely by pulmonary/critical care team Levophed dose decreased from yesterday 0.09 down to 0.03. Bicarb drip was stopped. Vasopressin dose actually slightly increased from 0.03 up to 0.04. Heparin drip was continued. Patient continued on tube feeding Antibiotic with vancomycin and meropenem, Eraxis added today 12/12/2023 Patient remains intubated in the ICU Patient showing signs of improving gradually. She is requiring less pressors of Levophed today was down to 0.01, she was on vasopressin 0.04 trying to wean it down to 0.0 3 in the morning and see the response of the patient through the day. Her leukocytosis also coming down 20,000 down to 16,000, Patient continued on broad-spectrum antibiotics of meropenem, IV vancomycin and Eraxis. Also she is on oral amiodarone with cardiology following closely. 12/13/2023 Patient remains in the ICU intubated and sedated with pulmonary/critical care team following closely and help with the vent management. Actually today there were trying sedation holiday and patient has been waking up and follows simple commands. Patient could come off pressors today and her blood pressure remained stable. She remains on heparin drip for her A-fib about amiodarone drip switched to oral amiodarone 200 mg by her motorized squad sergeant Labs look stable or slightly fluctuating. Remains on IV vancomycin, meropenem and Eraxis 12/14/2023 Patient is still intubated in the ICU, she is off sedation. She open eyes to verbal commands and trying to follow commands. She is off pressors She remains on meropenem and Eraxis Patient significantly edematous His heart rate is controlled regarding his A-fib 12/15/2023 Patient remains in the ICU. She is s/p extubation today. Blood she has left lung collapse so she underwent bronchoscopy with Dr. More and postprocedure x- ray showing expanded left lung as before. Patient continues on BiPAP for now. She needed short time off Levophed but stopped. Her blood pressure is supported. She continues to improve slowly and gradually. WBC count down to 15 down to 11,000. Afebrile. She is continued on meropenem and Eraxis She is on heparin drip for new onset A-fib and RVR on admission 12/16/2023 Patient is currently in the MICU. On BiPAP. Awake alert and oriented x 3. Chest x-ray showed interval worsening aeration and volume loss at the left lower lung. Suspect increasing atelectasis and now moderate effusion. Patient was given a dose of IV Lasix today. Denies any complaints of chest pain. Still having shortness of breath. Afebrile. Laboratory data showed WBC 10.7 hemoglobin 7.9 and platelets 338 Sodium 139 potassium 3.7 chloride 109 bicarb 35 BUN 29 creatinine 0.49 and calcium 7.4. Patient is being continued on heparin drip and is also on amiodarone. Cardiology and pulmonary is on board. Current medications reviewed. Objective - Vital Signs Vital signs: Vital Signs Temp 98.0 F 12/16/23 04:00 Pulse 72 12/16/23 08:10 Resp 16 12/16/23 08:10 BP 100/49 12/16/23 07:00 Pulse Ox 97 12/16/23 07:00 FiO2 40 12/16/23 07:53 Intake & Output 12/15/23 12/16/23 12/16/23 18:59 06:59 18:59 Intake Total 1366.000 240 Output Total 2580 552 Balance -1214.000 -312 Weight 97 kg Intake: IV 450 240 0.9 150 240 Anidulafungin 100 mg In 100 Sodium Chloride 0.9% 100 ml @ 84 mls/hr IVPB DAILY @1600 [facility] Rx#:[id number] Meropenem 1 gm In Sodium 200 Chloride 0.9% 100 ml @ 33 .3 mls/hr IVPB Q8HR [facility] Rx#:[id number] Intake, IV Titration 250.000 Amount Heparin Sod,Pork in 0.45% 250.000 NaCl 25,000 unit In 0.45 % NaCl 1 250ml.bag @ 10. 661 UNITS/KG/HR 10 mls/hr IV .Q24H [facility] Rx#: [id number] Tube Feeding 576 Other 90 Output: Urine 2230 552 Stool 350 Other: Voiding Method Indwelling Catheter Indwelling Catheter ABP, PAP, CO, CI - Last Documented Arterial Blood Pressure 95/53 - Exam - Exam -GENERAL: The patient is awake alert and oriented. On BiPAP currently. Bilateral lower extremity HEENT: Pupils are round and equally reacting to light. EOMI. No scleral icterus. No conjunctival pallor. Normocephalic, atraumatic. No pharyngeal erythema. No thyromegaly. CARDIOVASCULAR: S1 and S2 present. No murmurs, rubs, or gallops. PULMONARY: Bibasilar diminished sounds and left basilar coarse sounds., no wheezing. Nonlabored breathing. -ABDOMEN: Soft, nontender, nondistended, normoactive bowel sounds. No palpable organomegaly. Left lower abdominal colostomy bag MUSCULOSKELETAL: No joint swelling or deformity. -EXTREMITIES: No cyanosis, clubbing, bilateral trace pedal edema. Right elbow knee amputation, old NEUROLOGICAL: Gross neurological examination did not reveal any focal deficits. SKIN: No rashes. no petechiae. - Labs CBC & Chem 7: 12/17/23 04:06 12/17/23 04:06 Labs: Abnormal Lab Results - Last 24 Hours (Table) 12/15/23 12/15/23 12/15/23 Range/Units 13:55 18:38 23:39 WBC (3.8-10.6) k/uL RBC (3.80-5.40) m/uL Hgb (11.4-16.0) gm/dL Hct (34.0-46.0) % MCHC (31.0-37.0) g/dL RDW (11.5-15.5) % Neutrophils # (1.3-7.7) k/uL APTT 72.4 H (22.0-30.0) sec Chloride (98-107) mmol/L Carbon Dioxide (22-30) mmol/L BUN (7-17) mg/dL Creatinine (0.52-1.04) mg/dL Glucose (74-99) mg/dL POC Glucose (mg/dL) 116 H 116 H (70-110) mg/dL Calcium (8.4-10.2) mg/dL 12/16/23 12/16/23 12/16/23 Range/Units 05:00 05:00 05:00 WBC 10.7 H (3.8-10.6) k/uL RBC 2.97 L (3.80-5.40) m/uL Hgb 7.9 L (11.4-16.0) gm/dL Hct 25.6 L (34.0-46.0) % MCHC 30.9 L (31.0-37.0) g/dL RDW 24.5 H (11.5-15.5) % Neutrophils # 8.7 H (1.3-7.7) k/uL APTT 68.8 H (22.0-30.0) sec Chloride 109 H (98-107) mmol/L Carbon Dioxide 35 H (22-30) mmol/L BUN 29 H (7-17) mg/dL Creatinine 0.49 L (0.52-1.04) mg/dL Glucose 109 H (74-99) mg/dL POC Glucose (mg/dL) (70-110) mg/dL Calcium 7.4 L (8.4-10.2) mg/dL Assessment and Plan Assessment: Acute sigmoid sigmoid colitis, diverticulitis with proctitis. With multiple entero-cutaneous and entero-vesical fistulas, including to the left lower abdominal wall. Septic shock secondary to above new onset. Improved Acute hypoxic respiratory failure requiring intubation and mechanical ventilation. S/p extubation on 12/24. Patient is currently on BiPAP Left lung collapse secondary to mucous plugging status post bronchoscopy and lavage of left lung. Done on 12/10/2023 and also on 12/15/2023 Klebsiella urinary tract infection New onset A-fib and RVR Acute kidney injury, Improved no more need for dialysis Acute anemia, unknown baseline, chronic microcytic. S/p units of PRBC transfusion Full-thickness sacral pressure ulcer, left buttock. With no obvious osseous e rosions. Metabolic encephalopathy, with possible elements of delirium Bilateral adrenal nodule, recommend follow-up CT in 3 months. Hydropic gallbladder with multiple gallstones Anasarca With severe hypoalbuminemia Suspect critical illness polyneuropathy Patient is currently on BiPAP. Plan: Patient is currently on BiPAP Continue with antibiotic, meropenem and Eraxis ID team on the case. Continue with wound care and wound VAC in place with surgery team following closely pulmonary/critical care team is on board. Continue with heparin drip and oral amiodarone for new onset atrial fibrillation with RVR. Monitor and follow-up blood culture repeat cultures negative. DVT prophylaxis: Patient is on IV heparin, SCD GI prophylaxis: Protonix Prognosis guarded, CODE STATUS DNR/DNI Time with Patient: Greater than 30
--- NOTE | 2023-12-17 11:27 | P.PN ---
Subjective Progress Note Date: 12/17/23 This is a 74-year-old female patient who was brought into the intensive care unit after an extensive abdominal surgery. The patient underwent exploratory laparotomy and sigmoid colectomy and diverging colostomy. The patient was emergently taken to the operating room this afternoon as the patient was bec oming hypotensive and she had developed persistent leukocytosis intermittent fevers consistent with sepsis and septic shock. The patient was also becoming hypotensive despite being resuscitated with IV fluids and the patient preoperatively received a total of 3 L of IV fluids. An emergent surgical exploration was indicated. 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 At this point in time, the patient is sedated and the patient is currently on propofol. She is intubated on mechanical ventilator and she is on assist- control mode at a rate of 12, tidal volume of 400, FiO2 of 100% and a PEEP of 5. Chest x-ray shows a right IJ triple-lumen catheter. ET tube is in good loca tion. No airspace disease or consolidation. The blood gases showed a pH of 7.22 with a pCO2 of 51 and pO2 of 255. The patient is currently on no pressors and urine output is quite diminished in the order of 10 to 20 cc since arrival from the operating room. The patient is on IV cefepime and Flagyl. Received a total of 2 unit PRBC intraop 12/07/2023, I am seeing the patient for a follow-up in the intensive care unit. The patient is currently postop day #1. The patient remains intubated on the mechanical ventilator. This morning, the patient is on propofol which is running at 30 mcg/kg/min. She was resuscitated with IV fluids. She was maintained on normal saline at rate of 150 cc an hour and norepinephrine was also added overnight and currently norepinephrine is running at 0.07 mcg/kg/min. Her urine output is in the order of 10 to 20 cc an hour. Overall fluid balance over the past 24 hours has been +3.6 L. The patient remains on a combination of cefepime and Flagyl. The blood work from today shows a WBC count of 37.4, hemoglobin 10.7 and platelet count of 499. BUN is at 15 with a creatinine of 0.8. Sodium is at 143 from yesterday. Repeat electrolytes are still pending for now. Meanwhile, the patient remains intubated on mechanical ventilator. This morning, she is on assist-control mode at rate of 24, tidal volume of 400, FiO2 is at 55% with a PEEP of 5. The blood gas shows a pH of 7.38 with a pCO2 of 31 and pO2 of 119. Review of the chest x-ray from this morning shows adequate positioning of the orotracheal tube. This may need to be pushed in by 1 cm. The patient has a small atelectasis/left-sided pleural effusion. Otherwise, the right lung is essentially clear at this point in time. Antibiotic coverage includes a combination of cefepime and Flagyl. The patient will need Dilaudid for pain control. She is on heparin subcu for DVT prophylaxis. She is resting comfortably in bed. No other significant events overnight. Currently she is afebrile. The wound VAC is in place. Colostomy site is not fully functional at this point in time. Abdomen is soft. 12/08/2023, the patient remains intubated on mechanical ventilator and she is in the intensive care unit postop day #2. The patient remains on a mechanical ventilator. She is currently on assist-control mode with rate of 24, tidal volume of 400, FiO2 of 50% with a PEEP of 5. The blood gases from this morning showed a pH of 7.28 with a pCO2 of 32 and pO2 of 105. The chest x-ray was r eviewed and shows evidence of left basilar effusion/atelectasis. Orotracheal tube is in good location. The patient is triple-lumen catheter in her right IJ. Unfortunately, at around 3 AM this morning, the patient went into A-fib RVR and the patient became profoundly hypotensive. The patient progressively required higher dose of norepinephrine and currently norepinephrine is running at 0.2 mcg/kg/min and her mean arterial pressure is around 64. At the same time, the patient received treatment for her new onset atrial fibrillation. She was given an amiodarone bolus and currently she is on amiodarone at 0.5 mg/min. Based on her underlying hypotension. The patient was thought to hemodynamically unstable with A-fib RVR. The patient received cardioversion on 3 separate occasions using 120 J, 150 J and 200 J. Those attempts failed and the patient remained in atrial fibrillation. Her current heart rate is running at around 150 beats a minute, irregular. Urine output has dropped and the patient is producing only 10 cc an hour. At the same time, the patient's white cell count is up to 33.3 with a hemoglobin 12.1 and platelet count of 412. NG tube is in place. Output is minimal. Abdomen remains soft. The wound VAC is still in place. There is some liquidy stool material in the colostomy bag. No abdominal distention. The patient has been developing progressive edema and upper extremities in the left lower extremity. 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 Rest of the electrolytes show a sodium level of 143, serum bicarb is down to 12, anion gap is at 6, BUN is at 17 with a creatinine of 0.8. Magnesium level is at 1.9 with a calcium level of 7.9. The patient remains on IV cefepime and Flagyl. Urine culture from 12/04/2023 was positive for Klebsiella pneumoniae. She is currently afebrile. Propofol is running at 35 mcg/kg/min. The patient has been adequately sedated for now. Patient was reevaluated today on 12/09/2023, remains intubated and mechanically ventilated. On assist-control rate of 24 tidal volume 400 FiO2 50% and PEEP of 5. ABG showed a pO2 of 128 pCO2 35 pH 7.39. His FiO2 was cut down to 40% instead of 50%. Patient remained on multiple drips including norepinephrine, 0.04 mcg/kg/min, propofol at 35 mcg/kg/min, vasopressin at 0.03 units/min, D5W with 3 A of bicarb running at 150 cc/h. Patient is receiving vancomycin and Merrem. Patient has a left IJ triple-lumen catheter and left radial arterial line. Urine is positive Klebsiella, blood cultures were noted to be also positive for gram-negative bacilli. Most likely Klebsiella. Patient is on Merrem and she is on vancomycin patient is now postoperative day #3. Patient received 2 units of packed RBCs, since admission, hemoglobin now is 9.8, hemoglobin went as low as 7.4 on 12/04 labs today showed PTT of 57.4, basic metabolic profile is normal except for low potassium of 3.0 bicarb is 16, renal profile is normal WBC count is 28.5 hemoglobin is 9.8 urine cultures are positive for Klebsiella pneumoniae. Nutrition hicks the patient is receiving vital HP 10 cc/h. Patient remains in atrial fibrillation, rate seems to be reasonably controlled Patient was reevaluated today on 12/10/2023, remains in the ICU, intubated and mechanically ventilated. Earlier this morning I was made aware of the patient's chest x-ray showing complete collapse of the left lung, and tracheal deviation to the ipsilateral side. This was clearly consistent with mucous plugging involving the left mainstem bronchus. Hence the patient underwent bronchoscopy, suctioning of the mucous plugs, and bronchoalveolar lavage of the left upper lobe lingula and left lower lobe. Please refer to the full operative report regarding this procedure. Patient remains intubated, mechanically ventilated, she is on assist-control rate of 24 tidal volume 400 FiO2 is now 50% PEEP of 10 and I cut it down to 8. Patient remains on multiple drips including norepinephrine at 0.06 mcg/kg/min vasopressin at 0.04 units/h, bicarb drip which I have discontinued today, Cardizem drip at 5 mg/h. Patient is also on heparin drip, propofol at 15 mcg/kg/min. Antibiotics hicks remains on Merrem for Kle bsiella infection involving urine and blood. Chest x-ray as noted above, patient had complete opacification of the left lung, however after bronchoscopy and BAL significant improvement was noted and aeration of left lung significantly improved. ABG this morning on 40% showed a pO2 of 55 pCO2 48 and pH of 7.39 BBC count is 19.7, improving hemoglobin is 9.1. Platelets 253. ASIC metabolic profile is normal and renal profile is normal Patient was placed today on 12/11/2023, remains in the ICU, intubated and mechanically ventilated, sedated. On assist-control rate of 24 tidal volume 400 FiO2 50% and PEEP of 8 patient is requiring hemodynamic support with vasopressin 0.04 units, norepinephrine at 0.03 mcg/kg/min, patient is nutritionally supported with vital HP at 53 mL/h. ABG showed a pO2 of 96 pCO2 39 pH of 7.48. Patient remains on vancomycin and Merrem, urine output is about 40 cc/h hence I recommended Lasix to be given today 40 mg IV push x 1. Patient has a functioning ostomy, and she continues to have a wound VAC in place. CODE STATUS has been changed to DNR, yesterday, the patient underwent a bronchoscopy for complete opacification of the left lung, cultures from the BAL are pending, on today's chest x-ray there is minimal atelectasis in the left midlung, left lung remains relatively fully expanded Patient was reevaluated today on 12/12/2023, remains in the ICU intubated and mechanically ventilated. Patient is still requiring pressors, still on assist- control rate of 24 tidal volume 400 FiO2 45% PEEP is 8 and I cut it down to 6 today. ABG showed a pO2 of 105 pCO2 37 pH of 7.52 patient has been off propofol for the last 24 hours, still receiving heparin, she is on vasopressin at 0.02, and on norepinephrine at 0.01 mcg/kg/min. Antibiotics hicks, patient remains on Merrem and Eraxis. Patient is arousable, opens her eyes, extremely weak, however she is able to squeeze hands only. Continues to have leukocytosis with WBC count of 16.1 hemoglobin is 8.6, basic metabolic profile is normal. Nutrition hicks, patient remains on vital HP at 53/53 cc/h. Plan today on this patient is to continue patient off any sedation, and hopefully give the patient a trial of pressure support and CPAP, I do not believe the patient is ready to be extubated, but will start at least at times of weaning trials with pressure support mode of mechanical ventilation Patient was evaluated today on 12/13/2023, remains in the ICU, intubated and mechanically ventilated, patient is on assist-control rate of 24 tidal volume 400 FiO2 45% and PEEP of 6. ABG was done this morning. Overall the patient has not shown any significant change in the last few days, remains off sedation, pat ient is arousable, follows simple instructions like squeezing hands and wiggling toes. Hence I plan to give the patient today a trial of pressure support of 12 and CPAP, patient is still requiring a tiny bit of norepinephrine at 0.01 mcg/kg/min, patient remains on vital HP at 53 cc/h, and on heparin drip. Cardiac hicks, patient is on Merrem. Patient looks edematous and swollen, I recommended Lasix 40 mg IV push x 1 today chest x-ray is showing small left pleural effusion and atelectasis.WBC count is 15.1 hemoglobin 8.6. Basic metabolic profile is normal. BUN and creatinine are normal. Patient presented today on 12/14/2023, patient remains in the ICU, remains intubated and mechanically ventilated, on assist-control rate of 24 tidal volume 400 FiO2 35% and PEEP of 6. ABG not done today. Patient remains on antibiotics in the form of Eraxis and Merrem.Patient had Romelia and bronchoalveolar lavage, and she had Klebsiella pneumonia in her urine chest x-ray continues to show some minimal left basilar atelectasis. WBC count is 13.5 hemoglobin is 8.8, PTT is 44 basic metabolic profile is normal renal profile is normal, patient is not requiring any pressors anymore. Continues to improve with intermittent Lasix and should be given more Lasix today. Patient went on pressure support and CPAP almost 8 hours yesterday, she was transitioned to assist-control mode of mechanical ventilation overnight, and this morning early this morning, she was placed back on pressure support and CPAP. Hence the patient will be extubated to BiPAP, and we will continue to monitor the patient in the ICU. Although patient's CODE STATUS has been changed to no code, and not to reintubate if she fails extubation patient was reevaluated today on 12/15/2023, remains in the ICU, patient has been on BiPAP all the day yesterday, however at night she was placed on nasal cannula, apparently the patient kept taking her BiPAP off, and the decision was made by the nurses to place on nasal cannula, she tolerated nasal cannula overnight quite well, however this morning her chest x-ray showed complete wi dening of the left lung. Patient developed mucous plugging again involving the left mainstem bronchus and the left lung,, this required bronchoscopy done at bedside with IV conscious sedation, and I was able to remove all the mucous plugs from the left lung, and follow-up chest x-ray postoperatively showed complete reexpansion of the left lung. Meantime the patient remains on Lasix 40 mg IV push daily and I have been ordering that on a daily basis, patient will receive Ativan on BiPAP to keep her wearing the BiPAP overnight, presently her BiPAP is 16/6/50%. IV fluids at KVO, she is on vital HP at 40 cc/h which will be restarted. Labs today show WBC count of 11 hemoglobin 8.6 hematocrit 27.8 basic metabolic profile is normal renal profile is normal. Patient remains on amiodarone, Eraxis, heparin, Ativan 0.5 mg every 4 hours as needed while she is on BiPAP, she is also on Merrem, pantoprazole 40 mg IV push daily, patient has been off norepinephrine since last night CBC showed WC of 11 hemoglobin 8.6 PTT is 36.7 basic metabolic profile is normal BUN is 28 creatinine 0.44 The patient is seen today December 16, 2023 in follow-up in the intensive care unit. She is currently sitting up in bed. Awake. Currently on BiPAP 12/6 and 40% FiO2. She remains on a heparin drip. Normal saline it keep mean open. Chest x-ray continues to show worsening aeration and volume loss in the left lower lung. She is status post 2 units of packed red blood cells this admission. Current hemoglobin 7.9. Platelets 338. White count 10.7. Sodium 139. Potassium 3.7. Bicarb 35. BUN 29. Creatinine 0.49. Glucose 109. She continues on bronchodilators. Eraxis and meropenem. She is receiving chest physiotherapy in an attempt to keep the left lung open. She did undergo bedside bronchoscopy yesterday with improved aeration however within 24 hours there is new left lower lobe collapse. She is not to be reintubated and remains a DO NOT RESUSCITATE CODE STATUS. The patient is seen today December 17, 2023 in follow-up in the intensive care unit. She is currently resting in bed. She remains on the BiPAP 12/6 and 40% FiO2. Today's chest x-ray shows recurrent complete whiteout of the left lung. Bronchoalveolar wash was positive for Romelia only. White count 10.0. Hemoglobin 8.1. Platelets 373. Sodium 139. Potassium 3.6. Bicarb 32. BUN 28. Creatinine 0.51. Glucose 113. She is continued on DuoNebs, antibiotics in the form of Merrem. Continued on Eraxis. She is on a heparin drip. Continued on oral amiodarone. Objective - Vital Signs Vital signs: Vital Signs Temp 98.2 F 12/17/23 08:00 Pulse 82 12/17/23 08:05 Resp 20 12/17/23 08:05 BP 96/68 12/17/23 08:00 Pulse Ox 98 12/17/23 08:00 FiO2 40 03/12/24 08:00 Intake & Output 12/16/23 12/17/23 12/17/23 18:59 06:59 18:59 Intake Total 1425 1113.837 280 Output Total 2485 1100 100 Balance -1060 13.837 180 Weight 97 kg 92.8 kg Intake: IV 500 240 140 0.9 200 240 40 Anidulafungin 100 mg In 100 Sodium Chloride 0.9% 100 ml @ 84 mls/hr IVPB DAILY @1600 [facility] Rx#:[id number] Meropenem 1 gm In Sodium 200 100 Chloride 0.9% 100 ml @ 33 .3 mls/hr IVPB Q8HR [facility] Rx#:[id number] Intake, IV Titration 250 243.837 Amount Heparin Sod,Pork in 0.45% 250 243.837 NaCl 25,000 unit In 0.45 % NaCl 1 250ml.bag @ 10. 661 UNITS/KG/HR 10 mls/hr IV .Q24H [facility] Rx#: [id number] Tube Feeding 585 600 110 Other 90 30 30 Output: Urine 2485 850 100 Stool 250 Other: Voiding Method Indwelling Catheter Indwelling Catheter Indwelling Catheter ABP, PAP, CO, CI - Last Documented Arterial Blood Pressure 95/53 - Exam GENERAL EXAM: Alert, 73-year-old female, on BiPAP 12/6 and 40% FiO2, in no apparent distress. HEAD: Normocephalic. EYES: Normal reaction of pupils, equal size. NOSE: Clear with pink turbinates. THROAT: No erythema or exudates. NECK: No masses, no JVD. CHEST: No chest wall deformity. LUNGS: Equal air entry with crackles, diminished in the left lung base. CVS: S1 and S2 normal with no audible murmur, irregular rhythm. ABDOMEN: No hepatosplenomegaly, normal bowel sounds, no guarding or rigidity. SPINE: No scoliosis or deformity SKIN: No rashes CENTRAL NERVOUS SYSTEM: No focal deficits, tone is normal in all 4 extremities. EXTREMITIES: Right nywax-twd-fwyw amputation. Significant swelling of the left lower extremity. Peripheral pulses are intact. - Labs CBC & Chem 7: 12/17/23 04:06 12/17/23 04:06 Labs: Abnormal Lab Results - Last 24 Hours (Table) 12/16/23 12/16/23 12/17/23 Range/Units 17:47 23:04 04:06 RBC (3.80-5.40) m/uL Hgb (11.4-16.0) gm/dL Hct (34.0-46.0) % MCHC (31.0-37.0) g/dL RDW (11.5-15.5) % Neutrophils # (1.3-7.7) k/uL APTT 51.3 H (22.0-30.0) sec Carbon Dioxide (22-30) mmol/L BUN (7-17) mg/dL Creatinine (0.52-1.04) mg/dL Glucose (74-99) mg/dL POC Glucose (mg/dL) 112 H 122 H (70-110) mg/dL Calcium (8.4-10.2) mg/dL 12/17/23 12/17/23 12/17/23 Range/Units 04:06 04:06 05:54 RBC 3.06 L (3.80-5.40) m/uL Hgb 8.1 L (11.4-16.0) gm/dL Hct 26.5 L (34.0-46.0) % MCHC 30.6 L (31.0-37.0) g/dL RDW 24.6 H (11.5-15.5) % Neutrophils # 8.3 H (1.3-7.7) k/uL APTT (22.0-30.0) sec Carbon Dioxide 32 H (22-30) mmol/L BUN 28 H (7-17) mg/dL Creatinine 0.51 L (0.52-1.04) mg/dL Glucose 113 H (74-99) mg/dL POC Glucose (mg/dL) 119 H (70-110) mg/dL Calcium 7.8 L (8.4-10.2) mg/dL Assessment and Plan Assessment: Status post exploratory laparotomy colectomy and diverting colostomy and debridement of cutaneous fistula December 06, 2023 Abdominal sepsis and septic shock New onset atrial fibrillation with RVR Klebsiella pneumonia urinary tract infection Leukocytosis secondary to above, improving. 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 Zabala did speak with the patient's sister They will let us know about possible comfort care They state she would not want a trach and PEG Overall prognosis is quite poor DNI/DNR CODE STATUS We will continue to follow I have personally seen and examined the patient, performed the documentation and the assessment and plan as written. Number of minutes spent on the visit: 10.
[2023-12-17 11:57] LABS: Glucose,Whole Blood 122 mg/dL (70-110)
--- NOTE | 2023-12-17 14:22 | P.PN ---
Subjective Progress Note Date: 12/17/23 CHIEF COMPLAINT: Perforated diverticular disease with fistulization to the skin HISTORY OF PRESENT ILLNESS: The patient is a 74-edda-vmd-year-old female status post exploratory laparotomy, Magaña's procedure for colocutaneous fistula and septic shock. Patient on BiPAP. She is on tube feeds via NG tube for nutrition support. Afebrile. WBC 10 HGB 8.1 plt 373. Patient having liquidy stools through the ostomy. The stool is more with thickened today. Chest x-ray with recurrent whiteout of the left lung. Pulmonary service following. They will be discussing with patient's family regarding possible comfort care. PHYSICAL EXAM: VITAL SIGNS: Reviewed GENERAL: no acute distress. HEENT: No sclera icterus. Extraocular movements grossly intact. Moist buccal mucosa. Head is atraumatic, normocephalic. Hears conversational speech. No nasal drainage. NECK: Supple without lymphadenopathy. CHEST: Non-labored respirations and equal bilateral excursions. CARDIOVASCULAR: Palpable 2+ radial pulses. ABDOMEN: Soft. Nondistended. Prevana wound vac intact and to wall suction. Stoma beefy red. Stool in ostomy bag. Left lower abdomen below ostomy is also a wound VAC. MUSCULOSKELETAL: No clubbing or cyanosis. NEUROLOGIC: No focal or lateralizing signs. Cranial nerves II through XII chelsey ssly intact. PSYCH: Intubated SKIN: Well perfused. Good skin turgor. ASSESSMENT: 1. Septic shock 2. 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 Lack of general medical care 4. Complicated left groin wound, 4 cm 5. Intermesenteric abscess, pelvis 6. Left inguinal hernia 7. 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 Signing provider agrees with the documented findings, assessment, and plan of care. Objective - Vital Signs Vital signs: Vital Signs Temp 98.2 F 12/17/23 08:00 Pulse 83 12/17/23 13:00 Resp 27 H 12/17/23 13:00 BP 105/59 12/17/23 13:00 Pulse Ox 96 12/17/23 13:00 FiO2 40 12/17/23 11:28 Intake & Output 12/16/23 12/17/23 12/17/23 18:59 06:59 18:59 Intake Total 1425 1113.837 685 Output Total 2485 1100 710 Balance -1060 13.837 -25 Weight 97 kg 92.8 kg Intake: IV 500 240 240 0.9 200 240 140 Anidulafungin 100 mg In 100 Sodium Chloride 0.9% 100 ml @ 84 mls/hr IVPB DAILY @1600 [facility] Rx#:[id number] Meropenem 1 gm In Sodium 200 100 Chloride 0.9% 100 ml @ 33 .3 mls/hr IVPB Q8HR [facility] Rx#:[id number] Intake, IV Titration 250 243.837 Amount Heparin Sod,Pork in 0.45% 250 243.837 NaCl 25,000 unit In 0.45 % NaCl 1 250ml.bag @ 10. 661 UNITS/KG/HR 10 mls/hr IV .Q24H [facility] Rx#: [id number] Tube Feeding 585 600 385 Other 90 30 60 Output: Urine 2485 850 585 Stool 250 125 Other: Voiding Method Indwelling Catheter Indwelling Catheter Indwelling Catheter ABP, PAP, CO, CI - Last Documented Arterial Blood Pressure 95/53 - Labs CBC & Chem 7: 12/17/23 04:06 12/17/23 04:06 Labs: Abnormal Lab Results - Last 24 Hours (Table) 12/16/23 12/16/23 12/17/23 Range/Units 17:47 23:04 04:06 RBC (3.80-5.40) m/uL Hgb (11.4-16.0) gm/dL Hct (34.0-46.0) % MCHC (31.0-37.0) g/dL RDW (11.5-15.5) % Neutrophils # (1.3-7.7) k/uL APTT 51.3 H (22.0-30.0) sec Carbon Dioxide (22-30) mmol/L BUN (7-17) mg/dL Creatinine (0.52-1.04) mg/dL Glucose (74-99) mg/dL POC Glucose (mg/dL) 112 H 122 H (70-110) mg/dL Calcium (8.4-10.2) mg/dL 12/17/23 12/17/23 12/17/23 Range/Units 04:06 04:06 05:54 RBC 3.06 L (3.80-5.40) m/uL Hgb 8.1 L (11.4-16.0) gm/dL Hct 26.5 L (34.0-46.0) % MCHC 30.6 L (31.0-37.0) g/dL RDW 24.6 H (11.5-15.5) % Neutrophils # 8.3 H (1.3-7.7) k/uL APTT (22.0-30.0) sec Carbon Dioxide 32 H (22-30) mmol/L BUN 28 H (7-17) mg/dL Creatinine 0.51 L (0.52-1.04) mg/dL Glucose 113 H (74-99) mg/dL POC Glucose (mg/dL) 119 H (70-110) mg/dL Calcium 7.8 L (8.4-10.2) mg/dL 12/17/23 Range/Units 11:56 RBC (3.80-5.40) m/uL Hgb (11.4-16.0) gm/dL Hct (34.0-46.0) % MCHC (31.0-37.0) g/dL RDW (11.5-15.5) % Neutrophils # (1.3-7.7) k/uL APTT (22.0-30.0) sec Carbon Dioxide (22-30) mmol/L BUN (7-17) mg/dL Creatinine (0.52-1.04) mg/dL Glucose (74-99) mg/dL POC Glucose (mg/dL) 122 H (70-110) mg/dL Calcium (8.4-10.2) mg/dL
--- NOTE | 2023-12-17 15:26 | P.PN ---
Subjective Progress Note Date: 12/17/23 Principal diagnosis: Reason for follow-up is complicated diverticulitis with colocutaneous fistula Patient is a 73-year-old female who was brought into the ER at [facility] for the patient complaining of generalized weakness patient noticed to have sacral pressure ulcer and also complicate diverticulitis with a fistula to the left lower abdominal wall.Patient was taken to the OR on 12/06/2023 and this patient was status post exploratory laparotomy with sigmoid colectomy takedown of the colocutaneous fistula left inguinal hernia repair and peritoneal lavage. On today's evaluation that is 12/17/2023, the patient continues to be afebrile, the patient is on 5 L nasal cannula oxygen and breathing comfortably, the Pt is more awake and alert today denies having any chest pain or cough, the patient abdominal pain is currently controlled no vomiting or diarrhea reported. Patient white count normalized to 10.0, creatinine 0.51 Objective - Vital Signs Vital signs: Vital Signs Temp 98.2 F 12/17/23 08:00 Pulse 82 12/17/23 12:00 Resp 27 H 12/17/23 12:00 BP 112/59 12/17/23 12:00 Pulse Ox 96 12/17/23 12:00 FiO2 40 12/17/23 11:28 Intake & Output 12/16/23 12/17/23 12/17/23 18:59 06:59 18:59 Intake Total 1425 1113.837 610 Output Total 2485 1100 535 Balance -1060 13.837 75 Weight 97 kg 92.8 kg Intake: IV 500 240 220 0.9 200 240 120 Anidulafungin 100 mg In 100 Sodium Chloride 0.9% 100 ml @ 84 mls/hr IVPB DAILY @1600 [facility] Rx#:[id number] Meropenem 1 gm In Sodium 200 100 Chloride 0.9% 100 ml @ 33 .3 mls/hr IVPB Q8HR [facility] Rx#:[id number] Intake, IV Titration 250 243.837 Amount Heparin Sod,Pork in 0.45% 250 243.837 NaCl 25,000 unit In 0.45 % NaCl 1 250ml.bag @ 10. 661 UNITS/KG/HR 10 mls/hr IV .Q24H [facility] Rx#: [id number] Tube Feeding 585 600 330 Other 90 30 60 Output: Urine 2485 850 410 Stool 250 125 Other: Voiding Method Indwelling Catheter Indwelling Catheter Indwelling Catheter ABP, PAP, CO, CI - Last Documented Arterial Blood Pressure 95/53 - Exam GENERAL DESCRIPTION: An elderly female lying in bed in no distress RESPIRATORY SYSTEM: Unlabored breathing , decreased breath sounds at bases HEART: S1 S2 regular rate and rhythm , ABDOMEN: Soft , no tenderness EXTREMITIES: No edema feet - Labs CBC & Chem 7: 12/17/23 04:06 12/17/23 04:06 Labs: Abnormal Lab Results - Last 24 Hours (Table) 12/16/23 12/16/23 12/17/23 Range/Units 17:47 23:04 04:06 RBC (3.80-5.40) m/uL Hgb (11.4-16.0) gm/dL Hct (34.0-46.0) % MCHC (31.0-37.0) g/dL RDW (11.5-15.5) % Neutrophils # (1.3-7.7) k/uL APTT 51.3 H (22.0-30.0) sec Carbon Dioxide (22-30) mmol/L BUN (7-17) mg/dL Creatinine (0.52-1.04) mg/dL Glucose (74-99) mg/dL POC Glucose (mg/dL) 112 H 122 H (70-110) mg/dL Calcium (8.4-10.2) mg/dL 12/17/23 12/17/23 12/17/23 Range/Units 04:06 04:06 05:54 RBC 3.06 L (3.80-5.40) m/uL Hgb 8.1 L (11.4-16.0) gm/dL Hct 26.5 L (34.0-46.0) % MCHC 30.6 L (31.0-37.0) g/dL RDW 24.6 H (11.5-15.5) % Neutrophils # 8.3 H (1.3-7.7) k/uL APTT (22.0-30.0) sec Carbon Dioxide 32 H (22-30) mmol/L BUN 28 H (7-17) mg/dL Creatinine 0.51 L (0.52-1.04) mg/dL Glucose 113 H (74-99) mg/dL POC Glucose (mg/dL) 119 H (70-110) mg/dL Calcium 7.8 L (8.4-10.2) mg/dL 12/17/23 Range/Units 11:56 RBC (3.80-5.40) m/uL Hgb (11.4-16.0) gm/dL Hct (34.0-46.0) % MCHC (31.0-37.0) g/dL RDW (11.5-15.5) % Neutrophils # (1.3-7.7) k/uL APTT (22.0-30.0) sec Carbon Dioxide (22-30) mmol/L BUN (7-17) mg/dL Creatinine (0.52-1.04) mg/dL Glucose (74-99) mg/dL POC Glucose (mg/dL) 122 H (70-110) mg/dL Calcium (8.4-10.2) mg/dL Assessment and Plan (1) Diverticulitis of intestine, part unspecified, without perforation or abscess without bleeding Current Visit: Yes Status: Acute Code(s): K57.92 - DVTRCLI OF INTEST, PART UNSP, W/O PERF OR ABSCESS W/O BLEED SNOMED Code(s): 794883397 (2) Leukocytosis Current Visit: Yes Status: Acute Code(s): D72.829 - ELEVATED WHITE BLOOD CELL COUNT, UNSPECIFIED SNOMED Code(s): 745332426 (3) Sepsis Current Visit: Yes Status: Acute Code(s): A41.9 - SEPSIS, UNSPECIFIED ORGANISM SNOMED Code(s): 43275520 (4) Gram-negative bacteremia Current Visit: Yes Status: Acute Code(s): R78.81 - BACTEREMIA SNOMED Code(s): 420850053508 Plan: 1patient with complicated diverticulitis with evidence of fistulous co mmunication to the skin left lower quadrant area and concern for possible extension to the bladder, will need to cover for the polymicrobial jessie associated with such condition including enteric gram-negative both aerobes and anaerobes 2-patient also have a pressure ulcer but no significant surrounding cellulitis, wound care has been consulted continue local wound care per them 3gram-negative 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 with ID sensitivities pending, repeat blood culture has been negative so far 3-patient is status post extensive surgery including 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 5patient sputum culture grew Romelia bronchoscopy culture also grew Romelia as well as abdominal culture growing Romelia albicans 6-patient remains to be afebrile and white count has normalized today down to 10,000 7- patient is currently covered with meropenem along with Eraxis, family at bedside questions were answered Dictation was produced using [employer] dictation software. please excuse any grammatical, word or spelling errors. Time with Patient: Less than 30
[2023-12-17 18:07] LABS: Glucose,Whole Blood 130 mg/dL (70-110)
[2023-12-17 23:50] LABS: Glucose,Whole Blood 130 mg/dL (70-110)
[2023-12-18 05:06] LABS: African American GFR (CKD) >90 (>60 ml/min/1.73 sqM); Anion Gap -1 mmol/L; Blood Urea Nitrogen 23 mg/dL (7-17); Calcium 8.1 mg/dL (8.4-10.2); Carbon Dioxide 30 mmol/L (22-30); Chloride 110 mmol/L (98-107); Glucose 92 mg/dL (74-99); Non-African American GFR(CKD) >90 (>60 ml/min/1.73 sqM); Sodium 139 mmol/L (137-145)
[2023-12-18 05:18] LABS: Anisocytosis Moderate; Basophils % (A) 0 %; Eosinophils # (A) 0.5 k/uL (0-0.7); Eosinophils % (A) 5 %; HCT 28.6 % (34.0-46.0); HGB 8.2 gm/dL (11.4-16.0); Hypochromasia Marked; Lymphocytes # (A) 0.9 k/uL (1.0-4.8); Lymphocytes % (A) 10 %; MCH 26.3 pg (25.0-35.0); MCHC 28.8 g/dL (31.0-37.0); MCV 91.2 fL (80.0-100.0); Macrocytosis Slight; Monocytes # (A) 0.3 k/uL (0-1.0); Monocytes % (A) 4 %; Neutrophils % (A) 79 %; Platelet Count 331 k/uL (150-450); RBC 3.13 m/uL (3.80-5.40); RDW 23.5 % (11.5-15.5); WBC 8.9 k/uL (3.8-10.6)
[2023-12-18 06:42] LABS: Glucose,Whole Blood 99 mg/dL (70-110)
--- NOTE | 2023-12-18 07:30 | P.PN ---
Subjective Progress Note Date: 12/18/23 PROGRESS NOTE The patient is a 73-year-old female who presented for an exploratory laparotomy sigmoid colectomy, diverting colostomy who had postoperative hypotension. She had episodes of atrial fibrillation. She is extubated on BiPAP, feeling better. Her blood pressure stable. Continues to be in sinus mechanism. Her urinary output is good. She denies any dizziness or palpitations. She underwent bronchoscopy for left lung collapse. She had no further episodes of atrial fibrillation. Her echocardiogram showed ejection fraction of 50%. She had mild to moderate mitral regurgitation. December 16: The patient continues to be on the BiPAP. She is hemodynamically stable. Continues to be on IV heparin. Her chest x-ray shows total collapse of the left lung. She has no evidence of atrial fibrillation. Her urine output is stable. There is no evidence of malignant arrhythmia. December 17: The patient is feeling well, she denies any chest discomfort or dizziness. According to the nursing staff she has not been using her BiPAP. She continues to have a white out of the left lung. She has declined bronchoscopy. She continues to be in sinus mechanism. Her blood pressure has been stable. Her urine output is stable. Her CODE STATUS has been discussed by the intensive care team with her and her family. Medications: Amiodarone 200 mg twice a day, IV heparin, Eraxis, meropenem PHYSICAL EXAMINATION: Blood pressure 104/54 heart rate 76 LUNGS: Decreased breath sounds on the left HEART: Regular rate and rhythm, S1, S2. No S3. Systolic ejection murmur ABDOMEN: Soft, nontender, no organomegaly, ostomy noted EXTREMETIES: + 3 on the left edema status post right AKA LAB: Hemoglobin 8.2, WBC 8.9, BUN 23, creatinine 0.52 IMPRESSION: 1. Status post abdominal surgery and colostomy 2. Paroxysmal atrial fibrillation, maintaining sinus mechanism 3. Left lung collapse status post bronchoscopy x 2 in the past 4. Status post right AKA 5. Fluid overload PLAN: 1. Continue amiodarone and decrease to once a day on December 18 2. Change to oral anticoagulation if no further intervention is scheduled 3. Follow renal functions 4. IV diuretics 5. Awaiting further plan regarding possible bronchoscopy and CODE STATUS 6. Prognosis is guarded Objective - Vital Signs Vital signs: Vital Signs Temp 98.2 F 12/17/23 08:00 Pulse 78 12/18/23 07:00 Resp 21 12/18/23 07:00 BP 98/48 12/18/23 07:00 Pulse Ox 98 12/18/23 07:00 FiO2 40 12/17/23 11:28 Intake & Output 12/17/23 12/18/23 12/18/23 18:59 06:59 18:59 Intake Total 1095 590 20 Output Total 1245 1090 175 Balance -150 -500 -155 Weight 93.2 kg Intake: IV 540 340 20 0.9 240 240 20 Anidulafungin 100 mg In 100 Sodium Chloride 0.9% 100 ml @ 84 mls/hr IVPB DAILY @1600 [facility] Rx#:[id number] Meropenem 1 gm In Sodium 200 100 Chloride 0.9% 100 ml @ 33 .3 mls/hr IVPB Q8HR [facility] Rx#:[id number] Intake, IV Titration 250 Amount Heparin Sod,Pork in 0.45% 250 NaCl 25,000 unit In 0.45 % NaCl 1 250ml.bag @ 10. 661 UNITS/KG/HR 10 mls/hr IV .Q24H [facility] Rx#: [id number] Tube Feeding 495 Other 60 Output: Urine 895 1090 175 Stool 350 Other: Voiding Method Indwelling Catheter Indwelling Catheter ABP, PAP, CO, CI - Last Documented Arterial Blood Pressure 95/53 - Labs CBC & Chem 7: 12/18/23 04:01 12/18/23 04:01 Labs: Abnormal Lab Results - Last 24 Hours (Table) 12/17/23 12/17/23 12/17/23 Range/Units 11:56 18:06 23:49 RBC (3.80-5.40) m/uL Hgb (11.4-16.0) gm/dL Hct (34.0-46.0) % MCHC (31.0-37.0) g/dL RDW (11.5-15.5) % Lymphocytes # (1.0-4.8) k/uL APTT (22.0-30.0) sec Chloride (98-107) mmol/L BUN (7-17) mg/dL POC Glucose (mg/dL) 122 H 130 H 130 H (70-110) mg/dL Calcium (8.4-10.2) mg/dL 12/18/23 12/18/2312/17/24 Range/Units 04:01 04:01 04:01 RBC 3.13 L (3.80-5.40) m/uL Hgb 8.2 L (11.4-16.0) gm/dL Hct 28.6 L (34.0-46.0) % MCHC 28.8 L (31.0-37.0) g/dL RDW 23.5 H (11.5-15.5) % Lymphocytes # 0.9 L (1.0-4.8) k/uL APTT 48.9 H (22.0-30.0) sec Chloride 110 H (98-107) mmol/L BUN 23 H (7-17) mg/dL POC Glucose (mg/dL) (70-110) mg/dL Calcium 8.1 L (8.4-10.2) mg/dL
[2023-12-18] MEDS: FUROSEMIDE 10 MG/ML 4 ML VIAL IV SCH (08:00)
--- NOTE | 2023-12-18 08:56 | XR ---
EXAMINATION TYPE: XR chest 1V portable DATE OF EXAM: 12/18/2023 Comparison: 12/17/2023 Clinical History: 73-year-old female recurrent mucous plugging Findings: Left PICC tip and right IJ CVC tip both at the mid SVC level. Ongoing complete whiteout and volume lo ss throughout the left hemithorax. Right lung and pleural space remain clear. Impression: Ongoing complete whiteout and volume loss of the left hemithorax.
--- NOTE | 2023-12-18 09:55 | P.PN ---
Subjective Progress Note Date: 12/18/23 This is a 74-year-old female patient who was brought into the intensive care unit after an extensive abdominal surgery. The patient underwent exploratory laparotomy and sigmoid colectomy and diverging colostomy. The patient was emergently taken to the operating room this afternoon as the patient was bec oming hypotensive and she had developed persistent leukocytosis intermittent fevers consistent with sepsis and septic shock. The patient was also becoming hypotensive despite being resuscitated with IV fluids and the patient preoperatively received a total of 3 L of IV fluids. An emergent surgical exploration was indicated. 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 At this point in time, the patient is sedated and the patient is currently on propofol. She is intubated on mechanical ventilator and she is on assist- control mode at a rate of 12, tidal volume of 400, FiO2 of 100% and a PEEP of 5. Chest x-ray shows a right IJ triple-lumen catheter. ET tube is in good loca tion. No airspace disease or consolidation. The blood gases showed a pH of 7.22 with a pCO2 of 51 and pO2 of 255. The patient is currently on no pressors and urine output is quite diminished in the order of 10 to 20 cc since arrival from the operating room. The patient is on IV cefepime and Flagyl. Received a total of 2 unit PRBC intraop 12/07/2023, I am seeing the patient for a follow-up in the intensive care unit. The patient is currently postop day #1. The patient remains intubated on the mechanical ventilator. This morning, the patient is on propofol which is running at 30 mcg/kg/min. She was resuscitated with IV fluids. She was maintained on normal saline at rate of 150 cc an hour and norepinephrine was also added overnight and currently norepinephrine is running at 0.07 mcg/kg/min. Her urine output is in the order of 10 to 20 cc an hour. Overall fluid balance over the past 24 hours has been +3.6 L. The patient remains on a combination of cefepime and Flagyl. The blood work from today shows a WBC count of 37.4, hemoglobin 10.7 and platelet count of 499. BUN is at 15 with a creatinine of 0.8. Sodium is at 143 from yesterday. Repeat electrolytes are still pending for now. Meanwhile, the patient remains intubated on mechanical ventilator. This morning, she is on assist-control mode at rate of 24, tidal volume of 400, FiO2 is at 55% with a PEEP of 5. The blood gas shows a pH of 7.38 with a pCO2 of 31 and pO2 of 119. Review of the chest x-ray from this morning shows adequate positioning of the orotracheal tube. This may need to be pushed in by 1 cm. The patient has a small atelectasis/left-sided pleural effusion. Otherwise, the right lung is essentially clear at this point in time. Antibiotic coverage includes a combination of cefepime and Flagyl. The patient will need Dilaudid for pain control. She is on heparin subcu for DVT prophylaxis. She is resting comfortably in bed. No other significant events overnight. Currently she is afebrile. The wound VAC is in place. Colostomy site is not fully functional at this point in time. Abdomen is soft. 12/08/2023, the patient remains intubated on mechanical ventilator and she is in the intensive care unit postop day #2. The patient remains on a mechanical ventilator. She is currently on assist-control mode with rate of 24, tidal volume of 400, FiO2 of 50% with a PEEP of 5. The blood gases from this morning showed a pH of 7.28 with a pCO2 of 32 and pO2 of 105. The chest x-ray was r eviewed and shows evidence of left basilar effusion/atelectasis. Orotracheal tube is in good location. The patient is triple-lumen catheter in her right IJ. Unfortunately, at around 3 AM this morning, the patient went into A-fib RVR and the patient became profoundly hypotensive. The patient progressively required higher dose of norepinephrine and currently norepinephrine is running at 0.2 mcg/kg/min and her mean arterial pressure is around 64. At the same time, the patient received treatment for her new onset atrial fibrillation. She was given an amiodarone bolus and currently she is on amiodarone at 0.5 mg/min. Based on her underlying hypotension. The patient was thought to hemodynamically unstable with A-fib RVR. The patient received cardioversion on 3 separate occasions using 120 J, 150 J and 200 J. Those attempts failed and the patient remained in atrial fibrillation. Her current heart rate is running at around 150 beats a minute, irregular. Urine output has dropped and the patient is producing only 10 cc an hour. At the same time, the patient's white cell count is up to 33.3 with a hemoglobin 12.1 and platelet count of 412. NG tube is in place. Output is minimal. Abdomen remains soft. The wound VAC is still in place. There is some liquidy stool material in the colostomy bag. No abdominal distention. The patient has been developing progressive edema and upper extremities in the left lower extremity. 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 Rest of the electrolytes show a sodium level of 143, serum bicarb is down to 12, anion gap is at 6, BUN is at 17 with a creatinine of 0.8. Magnesium level is at 1.9 with a calcium level of 7.9. The patient remains on IV cefepime and Flagyl. Urine culture from 12/04/2023 was positive for Klebsiella pneumoniae. She is currently afebrile. Propofol is running at 35 mcg/kg/min. The patient has been adequately sedated for now. Patient was reevaluated today on 12/09/2023, remains intubated and mechanically ventilated. On assist-control rate of 24 tidal volume 400 FiO2 50% and PEEP of 5. ABG showed a pO2 of 128 pCO2 35 pH 7.39. His FiO2 was cut down to 40% instead of 50%. Patient remained on multiple drips including norepinephrine, 0.04 mcg/kg/min, propofol at 35 mcg/kg/min, vasopressin at 0.03 units/min, D5W with 3 A of bicarb running at 150 cc/h. Patient is receiving vancomycin and Merrem. Patient has a left IJ triple-lumen catheter and left radial arterial line. Urine is positive Klebsiella, blood cultures were noted to be also positive for gram-negative bacilli. Most likely Klebsiella. Patient is on Merrem and she is on vancomycin patient is now postoperative day #3. Patient received 2 units of packed RBCs, since admission, hemoglobin now is 9.8, hemoglobin went as low as 7.4 on 12/04 labs today showed PTT of 57.4, basic metabolic profile is normal except for low potassium of 3.0 bicarb is 16, renal profile is normal WBC count is 28.5 hemoglobin is 9.8 urine cultures are positive for Klebsiella pneumoniae. Nutrition hicks the patient is receiving vital HP 10 cc/h. Patient remains in atrial fibrillation, rate seems to be reasonably controlled Patient was reevaluated today on 12/10/2023, remains in the ICU, intubated and mechanically ventilated. Earlier this morning I was made aware of the patient's chest x-ray showing complete collapse of the left lung, and tracheal deviation to the ipsilateral side. This was clearly consistent with mucous plugging involving the left mainstem bronchus. Hence the patient underwent bronchoscopy, suctioning of the mucous plugs, and bronchoalveolar lavage of the left upper lobe lingula and left lower lobe. Please refer to the full operative report regarding this procedure. Patient remains intubated, mechanically ventilated, she is on assist-control rate of 24 tidal volume 400 FiO2 is now 50% PEEP of 10 and I cut it down to 8. Patient remains on multiple drips including norepinephrine at 0.06 mcg/kg/min vasopressin at 0.04 units/h, bicarb drip which I have discontinued today, Cardizem drip at 5 mg/h. Patient is also on heparin drip, propofol at 15 mcg/kg/min. Antibiotics hicks remains on Merrem for Kle bsiella infection involving urine and blood. Chest x-ray as noted above, patient had complete opacification of the left lung, however after bronchoscopy and BAL significant improvement was noted and aeration of left lung significantly improved. ABG this morning on 40% showed a pO2 of 55 pCO2 48 and pH of 7.39 BBC count is 19.7, improving hemoglobin is 9.1. Platelets 253. ASIC metabolic profile is normal and renal profile is normal Patient was placed today on 12/11/2023, remains in the ICU, intubated and mechanically ventilated, sedated. On assist-control rate of 24 tidal volume 400 FiO2 50% and PEEP of 8 patient is requiring hemodynamic support with vasopressin 0.04 units, norepinephrine at 0.03 mcg/kg/min, patient is nutritionally supported with vital HP at 53 mL/h. ABG showed a pO2 of 96 pCO2 39 pH of 7.48. Patient remains on vancomycin and Merrem, urine output is about 40 cc/h hence I recommended Lasix to be given today 40 mg IV push x 1. Patient has a functioning ostomy, and she continues to have a wound VAC in place. CODE STATUS has been changed to DNR, yesterday, the patient underwent a bronchoscopy for complete opacification of the left lung, cultures from the BAL are pending, on today's chest x-ray there is minimal atelectasis in the left midlung, left lung remains relatively fully expanded Patient was reevaluated today on 12/12/2023, remains in the ICU intubated and mechanically ventilated. Patient is still requiring pressors, still on assist- control rate of 24 tidal volume 400 FiO2 45% PEEP is 8 and I cut it down to 6 today. ABG showed a pO2 of 105 pCO2 37 pH of 7.52 patient has been off propofol for the last 24 hours, still receiving heparin, she is on vasopressin at 0.02, and on norepinephrine at 0.01 mcg/kg/min. Antibiotics hicks, patient remains on Merrem and Eraxis. Patient is arousable, opens her eyes, extremely weak, however she is able to squeeze hands only. Continues to have leukocytosis with WBC count of 16.1 hemoglobin is 8.6, basic metabolic profile is normal. Nutrition hicks, patient remains on vital HP at 53/53 cc/h. Plan today on this patient is to continue patient off any sedation, and hopefully give the patient a trial of pressure support and CPAP, I do not believe the patient is ready to be extubated, but will start at least at times of weaning trials with pressure support mode of mechanical ventilation Patient was evaluated today on 12/13/2023, remains in the ICU, intubated and mechanically ventilated, patient is on assist-control rate of 24 tidal volume 400 FiO2 45% and PEEP of 6. ABG was done this morning. Overall the patient has not shown any significant change in the last few days, remains off sedation, pat ient is arousable, follows simple instructions like squeezing hands and wiggling toes. Hence I plan to give the patient today a trial of pressure support of 12 and CPAP, patient is still requiring a tiny bit of norepinephrine at 0.01 mcg/kg/min, patient remains on vital HP at 53 cc/h, and on heparin drip. Cardiac hicks, patient is on Merrem. Patient looks edematous and swollen, I recommended Lasix 40 mg IV push x 1 today chest x-ray is showing small left pleural effusion and atelectasis.WBC count is 15.1 hemoglobin 8.6. Basic metabolic profile is normal. BUN and creatinine are normal. Patient presented today on 12/14/2023, patient remains in the ICU, remains intubated and mechanically ventilated, on assist-control rate of 24 tidal volume 400 FiO2 35% and PEEP of 6. ABG not done today. Patient remains on antibiotics in the form of Eraxis and Merrem.Patient had Romelia and bronchoalveolar lavage, and she had Klebsiella pneumonia in her urine chest x-ray continues to show some minimal left basilar atelectasis. WBC count is 13.5 hemoglobin is 8.8, PTT is 44 basic metabolic profile is normal renal profile is normal, patient is not requiring any pressors anymore. Continues to improve with intermittent Lasix and should be given more Lasix today. Patient went on pressure support and CPAP almost 8 hours yesterday, she was transitioned to assist-control mode of mechanical ventilation overnight, and this morning early this morning, she was placed back on pressure support and CPAP. Hence the patient will be extubated to BiPAP, and we will continue to monitor the patient in the ICU. Although patient's CODE STATUS has been changed to no code, and not to reintubate if she fails extubation patient was reevaluated today on 12/15/2023, remains in the ICU, patient has been on BiPAP all the day yesterday, however at night she was placed on nasal cannula, apparently the patient kept taking her BiPAP off, and the decision was made by the nurses to place on nasal cannula, she tolerated nasal cannula overnight quite well, however this morning her chest x-ray showed complete wi dening of the left lung. Patient developed mucous plugging again involving the left mainstem bronchus and the left lung,, this required bronchoscopy done at bedside with IV conscious sedation, and I was able to remove all the mucous plugs from the left lung, and follow-up chest x-ray postoperatively showed complete reexpansion of the left lung. Meantime the patient remains on Lasix 40 mg IV push daily and I have been ordering that on a daily basis, patient will receive Ativan on BiPAP to keep her wearing the BiPAP overnight, presently her BiPAP is 16/6/50%. IV fluids at KVO, she is on vital HP at 40 cc/h which will be restarted. Labs today show WBC count of 11 hemoglobin 8.6 hematocrit 27.8 basic metabolic profile is normal renal profile is normal. Patient remains on amiodarone, Eraxis, heparin, Ativan 0.5 mg every 4 hours as needed while she is on BiPAP, she is also on Merrem, pantoprazole 40 mg IV push daily, patient has been off norepinephrine since last night CBC showed WC of 11 hemoglobin 8.6 PTT is 36.7 basic metabolic profile is normal BUN is 28 creatinine 0.44 The patient is seen today December 16, 2023 in follow-up in the intensive care unit. She is currently sitting up in bed. Awake. Currently on BiPAP 12/6 and 40% FiO2. She remains on a heparin drip. Normal saline it keep mean open. Chest x-ray continues to show worsening aeration and volume loss in the left lower lung. She is status post 2 units of packed red blood cells this admission. Current hemoglobin 7.9. Platelets 338. White count 10.7. Sodium 139. Potassium 3.7. Bicarb 35. BUN 29. Creatinine 0.49. Glucose 109. She continues on bronchodilators. Eraxis and meropenem. She is receiving chest physiotherapy in an attempt to keep the left lung open. She did undergo bedside bronchoscopy yesterday with improved aeration however within 24 hours there is new left lower lobe collapse. She is not to be reintubated and remains a DO NOT RESUSCITATE CODE STATUS. The patient is seen today December 17, 2023 in follow-up in the intensive care unit. She is currently resting in bed. She remains on the BiPAP 12/6 and 40% FiO2. Today's chest x-ray shows recurrent complete whiteout of the left lung. Bronchoalveolar wash was positive for Romelia only. White count 10.0. Hemoglobin 8.1. Platelets 373. Sodium 139. Potassium 3.6. Bicarb 32. BUN 28. Creatinine 0.51. Glucose 113. She is continued on DuoNebs, antibiotics in the form of Merrem. Continued on Eraxis. She is on a heparin drip. Continued on oral amiodarone. The patient is seen today December 18, 2023 in follow-up in the intensive care unit. She is sitting up in bed. Awake and alert in no acute distress. She remains on a heparin drip. She remains on normal saline at KVO. She is currently on oxygen at 5 L/min per nasal cannula with O2 saturations in the upper 90s. She is afebrile. Hemodynamically stable. Chest x-ray continues to show ongoing complete whiteout with volume loss of the left hemithorax. She has decided not to wear the BiPAP, not to be reintubated, no bronchoscopy procedures. She is continued on Eraxis and meropenem. Remains on bronchodilators. Objective - Vital Signs Vital signs: Vital Signs Temp 98.0 F 12/18/23 08:00 Pulse 77 12/18/23 09:00 Resp 22 12/18/23 09:00 BP 97/56 12/18/23 09:00 Pulse Ox 98 12/18/23 09:00 FiO2 40 12/17/23 11:28 Intake & Output 12/17/23 12/18/23 12/18/23 18:59 06:59 18:59 Intake Total 1095 590 160 Output Total 1245 1090 815 Balance -150 -500 -655 Weight 93.2 kg Intake: IV 540 340 160 0.9 240 240 60 Anidulafungin 100 mg In 100 Sodium Chloride 0.9% 100 ml @ 84 mls/hr IVPB DAILY @1600 [facility] Rx#:[id number] Meropenem 1 gm In Sodium 200 100 100 Chloride 0.9% 100 ml @ 33 .3 mls/hr IVPB Q8HR [facility] Rx#:[id number] Intake, IV Titration 250 Amount Heparin Sod,Pork in 0.45% 250 NaCl 25,000 unit In 0.45 % NaCl 1 250ml.bag @ 10. 661 UNITS/KG/HR 10 mls/hr IV .Q24H [facility] Rx#: [id number] Tube Feeding 495 Other 60 Output: Urine 895 1090 715 Stool 350 100 Other: Voiding Method Indwelling Catheter Indwelling Catheter Indwelling Catheter ABP, PAP, CO, CI - Last Documented Arterial Blood Pressure 95/53 - Exam GENERAL EXAM: Alert, oriented 73-year-old female, on 5 L nasal cannula, in no apparent distress. HEAD: Normocephalic. EYES: Normal reaction of pupils, equal size. NOSE: Clear with pink turbinates. THROAT: No erythema or exudates. NECK: No masses, no JVD. CHEST: No chest wall deformity. LUNGS: Equal air entry with crackles, diminished in the left lung base. CVS: S1 and S2 normal with no audible murmur, irregular rhythm. ABDOMEN: No hepatosplenomegaly, normal bowel sounds, no guarding or rigidity. SPINE: No scoliosis or deformity SKIN: No rashes CENTRAL NERVOUS SYSTEM: No focal deficits, tone is normal in all 4 extremities. EXTREMITIES: Right [id number] amputation. Significant swelling of the left lower extremity. Peripheral pulses are intact. - Labs CBC & Chem 7: 12/18/23 04:01 12/18/23 04:01 Labs: Abnormal Lab Results - Last 24 Hours (Table) 12/17/23 12/17/23 12/17/23 Range/Units 11:56 18:06 23:49 RBC (3.80-5.40) m/uL Hgb (11.4-16.0) gm/dL Hct (34.0-46.0) % MCHC (31.0-37.0) g/dL RDW (11.5-15.5) % Lymphocytes # (1.0-4.8) k/uL APTT (22.0-30.0) sec Chloride (98-107) mmol/L BUN (7-17) mg/dL POC Glucose (mg/dL) 122 H 130 H 130 H (70-110) mg/dL Calcium (8.4-10.2) mg/dL 12/18/23 12/18/23 12/18/23 Range/Units 04:01 04:01 04:01 RBC 3.13 L (3.80-5.40) m/uL Hgb 8.2 L (11.4-16.0) gm/dL Hct 28.6 L (34.0-46.0) % MCHC 28.8 L (31.0-37.0) g/dL RDW 23.5 H (11.5-15.5) % Lymphocytes # 0.9 L (1.0-4.8) k/uL APTT 48.9 H (22.0-30.0) sec Chloride 110 H (98-107) mmol/L BUN 23 H (7-17) mg/dL POC Glucose (mg/dL) (70-110) mg/dL Calcium 8.1 L (8.4-10.2) mg/dL Assessment and Plan Assessment: Status post exploratory laparotomy colectomy and diverting colostomy and debri jackie of cutaneous fistula December 06, 2023 Abdominal sepsis and septic shock New onset atrial fibrillation with RVR, currently on a heparin drip Klebsiella pneumonia urinary tract infection Leukocytosis secondary to above, improving. Recurrent left lung collapse secondary to mucous plugging, status post bronchoscopy and lavage of left lung, done 12/10/2023, also done on 12/15/2023 Acute hypoxic and hypercapnic respiratory failure secondary to above None anion gap metabolic acidosis, resolved, bicarb drip was discontinued today History of previous right above-knee amputation Left buttocks unstageable pressure ulcer Hydropic gallbladder with multiple gallstones Adrenal nodules Strongly suspect critical illness polyneuropathy Plan: The patient was seen and evaluated Chest x-ray, labs and medications reviewed Recurrent complete whiteout of the left lung Patient has declined BiPAP, bronchoscopy, reintubation She is a DNR CODE STATUS Prognosis remains poor Currently on 5 L nasal cannula Continue bronchodilators and antibiotic We will continue to follow I have personally seen and examined the patient, performed the documentation and the assessment and plan as written. Number of minutes spent on the visit: 10.
--- NOTE | 2023-12-18 10:47 | P.PN ---
Subjective Progress Note Date: 12/17/23 This is a pleasant 73 years old female who presents to the emergency room for lower abdominal fistula drainage, associated with generalized weakness. Patient looks awake alert but tired looking, pale. Feels generally weak. N has mild generalized abdominal pain and tenderness. No rebound tenderness. Blood with malodorous left lower abdominal fistula drainage with fecal material coming out. Patient also with right rotation. Patient also with unstageable sacral pressure ulcer. With some evidence of cellulitis. Patient is mildly confused. But no headache or weakness in upper or lower patient was hypotensive with a blood pressure/42, currently slightly better 96/43. Potassium is low 2.9, WBC elevated 23,000, hemoglobin 7.4. Creatinine 0.7. Liver enzymes unremarkable. CT of the abdomen pelvis showing sigmoid diverticulitis and proctitis. 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 Please refer to the report for more details. Patient was ordered received normal saline boluses. Currently on Normosol at 130 mL/h She received 1 dose of Zosyn and started on Flagyl. We are going to add cefepime for gram-negative coverage. 12/05/2023 Patient is awake and alert, generally weak and tired, mildly drowsy Denies abdominal pain or tenderness, she has fistula in the left lower abdomen She denies chest pain or dyspnea. No headache dizziness weakness or numbness. No breathing difficulty. And currently she is saturating well on room air. Blood pressure is still on the low side.but is improving while on IV fluid Glucose 65 and her fluids changed to D5 normal saline at 1 30 mL/h She is currently covered with cefepime and IV Flagyl and IV Protonix She has leukocytosis of 23,000, hemoglobin stable 7.9, low potassium been replaced. Magnesium is normal 2.0. B12 541, Elevated ESR 75 and CRP 25 Patient at moderate risk for her multiple medical problems. Because of this echocardiogram was requested and cardiology consulted for preop evaluation. 12/06/2023 Patient remains awake and oriented, mildly lethargic Patient today was supposed to go for surgery to fix her enteric fistula Blood pressure was on the low side this morning I got a call from the bedside nurse blood pressure was 68/32, a bolus of normal saline is provided as well as midodrine Blood pressure a little low after first bolus, where going to give her another bolus of 1 L follow-up with the blood pressure. 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 [facility] Care Home Mother eval into the patient for preop assessment and there is no contraindication to proceed with surgery. Patient remains on normal saline with 30 mL/h, cefepime, IV Flagyl and IV Protonix 12/07/2023 Patient s/p sigmoid colectomy and taken down the fistula with peritoneal lavage, creatinine descending colostomy pouch with rectum Gabriel procedure by surgery team Postoperatively and perioperatively patient was hypotensive, after the procedure she got intubated and sent to the intensive care unit and started on pressors Patient remains on excessive hydration She is making about 10 to 20 mL of urine output She remains on broad-spectrum antibiotics with IV cefepime and Flagyl Patient labs and vitals are reviewed 12/08/2023 Patient remains in the ICU in critical condition winding operator around 3:00 she 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 Patient was started on amiodarone and heparin drip Also patient abdomen soft but she is becoming more anuric She still intubated on mechanical ventilation with assist-control Her leukocytosis is worse at 33,000 urine cultures grewing Klebsiella. Blood cultures positive for gram negative bacilli Her antibiotics was adjusted to meropenem and IV vancomycin. Her fluids running normal saline changed to sodium bicarb at 150 mL/h She is still on IV Protonix Her albumin is low so they are going to give her 1 dose of albumin IV if no improvement 12/09/2023 Patient remains in the ICU intubated and sedated She was still on pressors this morning on Levophed at 0.09, bicarbonate drip at 150 mL also vasopressin 0.03. She still has wound VAC in his abdomen. Patient blood pressure started improving 115/45 Potassium 3.4, WBC trending down to 28,000, hemoglobin 9.8. Albumin is 1.5 and patient 2 more bags of albumin 25 g to support her system as she has anasarca and significant swelling of the lower extremities. Patient remains also on broad-spectrum antibiotics with IV vancomycin and meropenem. She is also on Protonix. Discussed with staff. 12/10/2023 pt remains in the icu intubated and sedated pt chest xray showing left hemilthorax collapse pt requiring pressors, planning to wean down if possible c'w treatment for a fib with amiodaron and heparin drip still on broad spectrum antibioitc 12/11/2023 Patient felt to be improving although she still intubated in the ICU in critical condition and followed closely by pulmonary/critical care team Levophed dose decreased from yesterday 0.09 down to 0.03. Bicarb drip was stopped. Vasopressin dose actually slightly increased from 0.03 up to 0.04. Heparin drip was continued. Patient continued on tube feeding Antibiotic with vancomycin and meropenem, Eraxis added today 12/12/2023 Patient remains intubated in the ICU Patient showing signs of improving gradually. She is requiring less pressors of Levophed today was down to 0.01, she was on vasopressin 0.04 trying to wean it down to 0.0 3 in the morning and see the response of the patient through the day. Her leukocytosis also coming down 20,000 down to 16,000, Patient continued on broad-spectrum antibiotics of meropenem, IV vancomycin and Eraxis. Also she is on oral amiodarone with cardiology following closely. 12/13/2023 Patient remains in the ICU intubated and sedated with pulmonary/critical care team following closely and help with the vent management. Actually today there were trying sedation holiday and patient has been waking up and follows simple commands. Patient could come off pressors today and her blood pressure remained stable. She remains on heparin drip for her A-fib about amiodarone drip switched to oral amiodarone 200 mg by her career coordinator Labs look stable or slightly fluctuating. Remains on IV vancomycin, meropenem and Eraxis 12/14/2023 Patient is still intubated in the ICU, she is off sedation. She open eyes to verbal commands and trying to follow commands. She is off pressors She remains on meropenem and Eraxis Patient significantly edematous His heart rate is controlled regarding his A-fib 12/15/2023 Patient remains in the ICU. She is s/p extubation today. Blood she has left lung collapse so she underwent bronchoscopy with Dr. More and postprocedure x- ray showing expanded left lung as before. Patient continues on BiPAP for now. She needed short time off Levophed but stopped. Her blood pressure is supported. She continues to improve slowly and gradually. WBC count down to 15 down to 11,000. Afebrile. She is continued on meropenem and Eraxis She is on heparin drip for new onset A-fib and RVR on admission 12/16/2023 Patient is currently in the MICU. On BiPAP. Awake alert and oriented x 3. Chest x-ray showed interval worsening aeration and volume loss at the left lower lung. Suspect increasing atelectasis and now moderate effusion. Patient was given a dose of IV Lasix today. Denies any complaints of chest pain. Still having shortness of breath. Afebrile. Laboratory data showed WBC 10.7 hemoglobin 7.9 and platelets 338 Sodium 139 potassium 3.7 chloride 109 bicarb 35 BUN 29 creatinine 0.49 and calcium 7.4. Patient is being continued on heparin drip and is also on amiodarone. Cardiology and pulmonary is on board. 12/17/2023 Patient is in the MICU. Still requiring BiPAP at 40% FiO2. Otherwise patient is awake alert and oriented. Afebrile. Chest x-ray today showed recurrent whiteout and volume loss on the left. Patient is being continued on antibiotics in the form of meropenem and also on IV Lasix. Heparin drip due to atrial fibrillation and also on amiodarone. Patient is on micafungin due to Romelia albicans growing in the bronchoalveolar lavage. Urine cultures on 12/04/2023 showed Klebsiella pneumonia. Laboratory data showed WBC 10.0 hemoglobin 8.1 and platelets 373 Bicarb is 32 potassium 3.6 BUN 28 and creatinine 0.51 and blood sugar 113 and calcium is 10.8. Pulmonary cardiology and ID is on board. Current medications reviewed. Objective - Vital Signs Vital signs: Vital Signs Temp 98.2 F 12/17/23 08:00 Pulse 82 12/17/23 08:05 Resp 20 12/17/23 08:05 BP 96/68 12/17/23 08:00 Pulse Ox 98 12/17/23 08:00 FiO2 40 12/17/23 08:00 Intake & Output 12/16/23 12/17/23 12/17/23 18:59 06:59 18:59 Intake Total 1425 1113.837 280 Output Total 2485 1100 100 Balance -1060 13.837 180 Weight 97 kg 92.8 kg Intake: IV 500 240 140 0.9 200 240 40 Anidulafungin 100 mg In 100 Sodium Chloride 0.9% 100 ml @ 84 mls/hr IVPB DAILY @1600 [facility] Rx#:[id number] Meropenem 1 gm In Sodium 200 100 Chloride 0.9% 100 ml @ 33 .3 mls/hr IVPB Q8HR [facility] Rx#:[id number] Intake, IV Titration 250 243.837 Amount Heparin Sod,Pork in 0.45% 250 243.837 NaCl 25,000 unit In 0.45 % NaCl 1 250ml.bag @ 10. 661 UNITS/KG/HR 10 mls/hr IV .Q24H [facility] Rx#: [id number] Tube Feeding 585 600 110 Other 90 30 30 Output: Urine 2485 850 100 Stool 250 Other: Voiding Method Indwelling Catheter Indwelling Catheter Indwelling Catheter ABP, PAP, CO, CI - Last Documented Arterial Blood Pressure 95/53 - Exam - Exam -GENERAL: The patient is awake alert and oriented. On BiPAP currently. Bilateral lower extremity HEENT: Pupils are round and equally reacting to light. EOMI. No scleral icterus. No conjunctival pallor. Normocephalic, atraumatic. No pharyngeal erythema. No thyromegaly. CARDIOVASCULAR: S1 and S2 present. No murmurs, rubs, or gallops. PULMONARY: Bibasilar diminished sounds and left basilar coarse sounds., no wheezing. Nonlabored breathing. -ABDOMEN: Soft, nontender, nondistended, normoactive bowel sounds. No palpable organomegaly. Left lower abdominal colostomy bag MUSCULOSKELETAL: No joint swelling or deformity. -EXTREMITIES: No cyanosis, clubbing, bilateral trace pedal edema. Right elbow knee amputation, old NEUROLOGICAL: Gross neurological examination did not reveal any focal deficits. SKIN: No rashes. no petechiae. - Labs CBC & Chem 7: 12/18/23 04:01 12/18/23 04:01 Labs: Abnormal Lab Results - Last 24 Hours (Table) 12/16/23 12/16/23 12/17/23 Range/Units 17:47 23:04 04:06 RBC (3.80-5.40) m/uL Hgb (11.4-16.0) gm/dL Hct (34.0-46.0) % MCHC (31.0-37.0) g/dL RDW (11.5-15.5) % Neutrophils # (1.3-7.7) k/uL APTT 51.3 H (22.0-30.0) sec Carbon Dioxide (22-30) mmol/L BUN (7-17) mg/dL Creatinine (0.52-1.04) mg/dL Glucose (74-99) mg/dL POC Glucose (mg/dL) 112 H 122 H (70-110) mg/dL Calcium (8.4-10.2) mg/dL 12/17/23 12/17/23 12/17/23 Range/Units 04:06 04:06 05:54 RBC 3.06 L (3.80-5.40) m/uL Hgb 8.1 L (11.4-16.0) gm/dL Hct 26.5 L (34.0-46.0) % MCHC 30.6 L (31.0-37.0) g/dL RDW 24.6 H (11.5-15.5) % Neutrophils # 8.3 H (1.3-7.7) k/uL APTT (22.0-30.0) sec Carbon Dioxide 32 H (22-30) mmol/L BUN 28 H (7-17) mg/dL Creatinine 0.51 L (0.52-1.04) mg/dL Glucose 113 H (74-99) mg/dL POC Glucose (mg/dL) 119 H (70-110) mg/dL Calcium 7.8 L (8.4-10.2) mg/dL Assessment and Plan Assessment: Acute sigmoid sigmoid colitis, diverticulitis with proctitis. With multiple entero-cutaneous and entero-vesical fistulas, including to the left lower abdominal wall. Septic shock secondary to above new onset. Improved Acute hypoxic respiratory failure requiring intubation and mechanical ventilation. S/p extubation on 12/24. Patient is currently on BiPAP Left lung collapse secondary to mucous plugging status post bronchoscopy and lavage of left lung. Done on 12/10/2023 and also on 12/15/2023 Klebsiella urinary tract infection New onset A-fib and RVR Acute kidney injury, Improved no more need for dialysis Acute anemia, unknown baseline, chronic microcytic. S/p units of PRBC transfusion Full-thickness sacral pressure ulcer, left buttock. With no obvious osseous erosions. Metabolic encephalopathy, with possible elements of delirium Bilateral adrenal nodule, recommend follow-up CT in 3 months. Hydropic gallbladder with multiple gallstones Anasarca With severe hypoalbuminemia Suspect critical illness polyneuropathy Patient is currently on BiPAP. Plan: Patient is currently on BiPAP Continue with antibiotic, meropenem and Eraxis ID team on the case. Continue with wound care and wound VAC in place with surgery team following closely pulmonary/critical care team is on board. Continue with heparin drip and oral amiodarone for new onset atrial fibrillation with RVR. Being changed to oral anticoagulation. Monitor and follow-up blood culture repeat cultures negative. DVT prophylaxis: Patient is on IV heparin, SCD GI prophylaxis: Protonix Prognosis guarded, CODE STATUS DNR/DNI Prognosis is poor at this time. Discussed with the patient and her family at bedside. Patient's sister does want to go for tracheostomy. Time with Patient: Greater than 30
[2023-12-18] MEDS: APIXABAN 5 MG TAB PO SCH (10:55)
--- NOTE | 2023-12-18 13:26 | P.PN ---
Subjective Progress Note Date: 12/18/23 CHIEF COMPLAINT: Perforated diverticular disease with fistulization to the skin HISTORY OF PRESENT ILLNESS: The patient is a 15-[id number]-[id number]-year-old female status post exploratory laparotomy, Magaña's procedure for colocutaneous fistula and septic shock. Patient is currently a no code. She has declined use of the BiPAP. She requested that the NG tube be removed and she be started on diet. Patient currently on a low fiber diet. Currently on nasal cannula. Ostomy is functioning. She reports no pain. Patient is high risk of aspiration. Patient and family are aware. She was evaluated by speech therapy. PHYSICAL EXAM: VITAL SIGNS: Reviewed GENERAL: no acute distress. HEENT: No sclera icterus. Extraocular movements grossly intact. Moist buccal mucosa. Head is atraumatic, normocephalic. Hears conversational speech. No nasal drainage. NECK: Supple without lymphadenopathy. CHEST: Non-labored respirations and equal bilateral excursions. CARDIOVASCULAR: Palpable 2+ radial pulses. ABDOMEN: Soft. Nondistended. Prevana wound vac intact and to wall suction. Stoma beefy red. Stool in ostomy bag. Left lower abdomen below ostomy is also a wound VAC. MUSCULOSKELETAL: No clubbing or cyanosis. NEUROLOGIC: No focal or lateralizing signs. Cranial nerves II through XII grossly intact. PSYCH: Intubated SKIN: Well perfused. Good skin turgor. ASSESSMENT: 1. Septic shock 2. 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 Lack of general medical care 4. Complicated left groin wound, 4 cm 5. Intermesenteric abscess, pelvis 6. Left inguinal hernia 7. Atrial fibrillation with rapid ventricular response 8. Complete opacification of left lung PLAN: -Continue ICU management -Patient started on low fiber diet yesterday. Patient and family are aware she is high risk for aspiration -Patient and patient's family decided to no longer use the BiPAP. They do not want mechanical ventilation and they do not want any additional bronchoscopies. They did not want NG tube and wanted to start diet even though she is high risk for aspiration. -Continue Prevana wound VAC system to high wall suction -continue wound vac -Continue pain management -Continue antibiotics and antifungal per ID service Physician Special Order Jeweler note has been reviewed by physician. Signing provider agrees with the documented findings, assessment, and plan of care. Objective - Vital Signs Vital signs: Vital Signs Temp 98.0 F 12/18/23 08:00 Pulse 80 12/18/23 12:00 Resp 24 12/18/23 12:00 BP 97/56 12/18/23 12:00 Pulse Ox 97 12/18/23 12:00 FiO2 40 12/17/23 11:28 Intake & Output 12/17/23 12/18/23 12/18/23 18:59 06:59 18:59 Intake Total 1095 590 220 Output Total 1245 1090 2115 Balance -150 -500 -1895 Weight 93.2 kg Intake: IV 540 340 220 0.9 240 240 120 Anidulafungin 100 mg In 100 Sodium Chloride 0.9% 100 ml @ 84 mls/hr IVPB DAILY @1600 [facility] Rx#:[id number] Meropenem 1 gm In Sodium 200 100 100 Chloride 0.9% 100 ml @ 33 .3 mls/hr IVPB Q8HR [facility] Rx#:[id number] Intake, IV Titration 250 Amount Heparin Sod,Pork in 0.45% 250 NaCl 25,000 unit In 0.45 % NaCl 1 250ml.bag @ 10. 661 UNITS/KG/HR 10 mls/hr IV .Q24H [facility] Rx#: [id number] Tube Feeding 495 Other 60 Output: Urine 895 1090 2015 Stool 350 100 Other: Voiding Method Indwelling Catheter Indwelling Catheter Indwelling Catheter ABP, PAP, CO, CI - Last Documented Arterial Blood Pressure 95/53 - Labs CBC & Chem 7: 12/18/23 04:01 12/18/23 04:01 Labs: Abnormal Lab Results - Last 24 Hours (Table) 12/17/23 12/17/23 12/18/23 Range/Units 18:06 23:49 04:01 RBC (3.80-5.40) m/uL Hgb (11.4-16.0) gm/dL Hct (34.0-46.0) % MCHC (31.0-37.0) g/dL RDW (11.5-15.5) % Lymphocytes # (1.0-4.8) k/uL APTT 48.9 H (22.0-30.0) sec Chloride (98-107) mmol/L BUN (7-17) mg/dL POC Glucose (mg/dL) 130 H 130 H (70-110) mg/dL Calcium (8.4-10.2) mg/dL 12/18/23 12/18/23 Range/Units 04:01 04:01 RBC 3.13 L (3.80-5.40) m/uL Hgb 8.2 L (11.4-16.0) gm/dL Hct 28.6 L (34.0-46.0) % MCHC 28.8 L (31.0-37.0) g/dL RDW 23.5 H (11.5-15.5) % Lymphocytes # 0.9 L (1.0-4.8) k/uL APTT (22.0-30.0) sec Chloride 110 H (98-107) mmol/L BUN 23 H (7-17) mg/dL POC Glucose (mg/dL) (70-110) mg/dL Calcium 8.1 L (8.4-10.2) mg/dL
[2023-12-19 04:23] LABS: Anisocytosis Moderate; Basophils % (A) 0 %; Eosinophils # (A) 0.6 k/uL (0-0.7); Eosinophils % (A) 8 %; HCT 26.7 % (34.0-46.0); HGB 8.3 gm/dL (11.4-16.0); Hypochromasia Marked; Lymphocytes # (A) 0.8 k/uL (1.0-4.8); Lymphocytes % (A) 10 %; MCH 27.2 pg (25.0-35.0); MCHC 31.2 g/dL (31.0-37.0); MCV 87.2 fL (80.0-100.0); Macrocytosis Slight; Mean Platelet Volume 8.1; Microcytosis Slight; Monocytes # (A) 0.3 k/uL (0-1.0); Monocytes % (A) 4 %; Neutrophils # (A) 6.2 k/uL (1.3-7.7); Neutrophils % (A) 77 %; Platelet Count 472 k/uL (150-450); RBC 3.06 m/uL (3.80-5.40); RDW 23.5 % (11.5-15.5); WBC 8.1 k/uL (3.8-10.6)
[2023-12-19 04:49] LABS: African American GFR (CKD) >90 (>60 ml/min/1.73 sqM); Anion Gap 0 mmol/L; Blood Urea Nitrogen 21 mg/dL (7-17); Carbon Dioxide 30 mmol/L (22-30); Chloride 108 mmol/L (98-107); Glucose 84 mg/dL (74-99); Non-African American GFR(CKD) >90 (>60 ml/min/1.73 sqM); Sodium 138 mmol/L (137-145)
--- NOTE | 2023-12-19 07:13 | P.PN ---
Subjective Progress Note Date: 12/19/23 PROGRESS NOTE The patient is a 73-year-old female who presented for an exploratory laparotomy sigmoid colectomy, diverting colostomy who had postoperative hypotension. She had episodes of atrial fibrillation. She is extubated on BiPAP, feeling better. Her blood pressure stable. Continues to be in sinus mechanism. Her urinary output is good. She denies any dizziness or palpitations. She underwent bronchoscopy for left lung collapse. She had no further episodes of atrial fibrillation. Her echocardiogram showed ejection fraction of 50%. She had mild to moderate mitral regurgitation. December 16: The patient continues to be on the BiPAP. She is hemodynamically stable. Continues to be on IV heparin. Her chest x-ray shows total collapse of the left lung. She has no evidence of atrial fibrillation. Her urine output is stable. There is no evidence of malignant arrhythmia. December 17: The patient is feeling well, she denies any chest discomfort or dizziness. According to the nursing staff she has not been using her BiPAP. She continues to have a white out of the left lung. She has declined bronchoscopy. She continues to be in sinus mechanism. Her blood pressure has been stable. Her urine output is stable. Her CODE STATUS has been discussed by the intensive care team with her and her family. December 18: The patient is awake and alert, tired. She is on nasal cannula, her oxygenation is stable. She denies any chest discomfort, dizziness or palpitations. She had an episode of brief nonsustained VT otherwise continues to be in sinus mechanism. Hemodynamically she is stable. Her urine output is stable. The patient is DNR and does not want to use the BiPAP or having any further bronchoscopy. She had complete opacification of the left lung. Medications: Amiodarone 200 mg twice a day, IV heparin, Eraxis, meropenem Lasix 40 mg IV daily PHYSICAL EXAMINATION: Blood pressure 93/40 heart rate 72 LUNGS: Decreased breath sounds on the left HEART: Regular rate and rhythm, S1, S2. No S3. Systolic ejection murmur ABDOMEN: Soft, nontender, no organomegaly, ostomy noted EXTREMETIES: + 3 on the left edema status post right AKA LAB: Hemoglobin 8.3, WBC 8.1, BUN 21, creatinine 1.44 IMPRESSION: 1. Status post abdominal surgery and colostomy 2. Paroxysmal atrial fibrillation, maintaining sinus mechanism 3. Left lung collapse status post bronchoscopy x 2 in the past 4. Status post right AKA 5. Fluid overload PLAN: 1. Decrease amiodarone to 200 mg daily 2. Continue IV diuretics 3. Depending on her progress further recommendations will be made Objective - Vital Signs Vital signs: Vital Signs Temp 97.8 F 12/19/23 04:00 Pulse 72 12/19/23 06:00 Resp 13 12/19/23 06:00 BP 93/36 12/19/23 06:00 Pulse Ox 100 12/19/23 06:00 FiO2 40 12/17/23 11:28 Intake & Output 12/18/23 12/19/23 12/19/23 18:59 06:59 18:59 Intake Total 340 240 Output Total 2655 640 Balance -2315 -400 Weight 93.2 kg 91.6 kg Intake: IV 340 240 0.9 240 240 Meropenem 1 gm In Sodium 100 Chloride 0.9% 100 ml @ 33 .3 mls/hr IVPB Q8HR [facility] Rx#:[id number] Output: Urine 2515 640 Stool 140 Other: Voiding Method Indwelling Catheter Indwelling Catheter ABP, PAP, CO, CI - Last Documented Arterial Blood Pressure 95/53 - Labs CBC & Chem 7: 12/19/23 04:12 12/19/23 04:12 Labs: Abnormal Lab Results - Last 24 Hours (Table) 12/19/23 12/19/23 Range/Units 04:12 04:12 RBC 3.06 L (3.80-5.40) m/uL Hgb 8.3 L (11.4-16.0) gm/dL Hct 26.7 L (34.0-46.0) % RDW 23.5 H (11.5-15.5) % Plt Count 472 H (150-450) k/uL Lymphocytes # 0.8 L (1.0-4.8) k/uL Chloride 108 H (98-107) mmol/L BUN 21 H (7-17) mg/dL Creatinine 0.44 L (0.52-1.04) mg/dL Calcium 8.0 L (8.4-10.2) mg/dL
[2023-12-19] MEDS: AMIODARONE 200 MG TAB PO SCH (09:08)
--- NOTE | 2023-12-19 10:08 | P.PN ---
Subjective Progress Note Date: 12/19/23 This is a 74-year-old female patient who was brought into the intensive care unit after an extensive abdominal surgery. The patient underwent exploratory laparotomy and sigmoid colectomy and diverging colostomy. The patient was emergently taken to the operating room this afternoon as the patient was bec oming hypotensive and she had developed persistent leukocytosis intermittent fevers consistent with sepsis and septic shock. The patient was also becoming hypotensive despite being resuscitated with IV fluids and the patient preoperatively received a total of 3 L of IV fluids. An emergent surgical exploration was indicated. 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 At this point in time, the patient is sedated and the patient is currently on propofol. She is intubated on mechanical ventilator and she is on assist- control mode at a rate of 12, tidal volume of 400, FiO2 of 100% and a PEEP of 5. Chest x-ray shows a right IJ triple-lumen catheter. ET tube is in good loca tion. No airspace disease or consolidation. The blood gases showed a pH of 7.22 with a pCO2 of 51 and pO2 of 255. The patient is currently on no pressors and urine output is quite diminished in the order of 10 to 20 cc since arrival from the operating room. The patient is on IV cefepime and Flagyl. Received a total of 2 unit PRBC intraop 12/07/2023, I am seeing the patient for a follow-up in the intensive care unit. The patient is currently postop day #1. The patient remains intubated on the mechanical ventilator. This morning, the patient is on propofol which is running at 30 mcg/kg/min. She was resuscitated with IV fluids. She was maintained on normal saline at rate of 150 cc an hour and norepinephrine was also added overnight and currently norepinephrine is running at 0.07 mcg/kg/min. Her urine output is in the order of 10 to 20 cc an hour. Overall fluid balance over the past 24 hours has been +3.6 L. The patient remains on a combination of cefepime and Flagyl. The blood work from today shows a WBC count of 37.4, hemoglobin 10.7 and platelet count of 499. BUN is at 15 with a creatinine of 0.8. Sodium is at 143 from yesterday. Repeat electrolytes are still pending for now. Meanwhile, the patient remains intubated on mechanical ventilator. This morning, she is on assist-control mode at rate of 24, tidal volume of 400, FiO2 is at 55% with a PEEP of 5. The blood gas shows a pH of 7.38 with a pCO2 of 31 and pO2 of 119. Review of the chest x-ray from this morning shows adequate positioning of the orotracheal tube. This may need to be pushed in by 1 cm. The patient has a small atelectasis/left-sided pleural effusion. Otherwise, the right lung is essentially clear at this point in time. Antibiotic coverage includes a combination of cefepime and Flagyl. The patient will need Dilaudid for pain control. She is on heparin subcu for DVT prophylaxis. She is resting comfortably in bed. No other significant events overnight. Currently she is afebrile. The wound VAC is in place. Colostomy site is not fully functional at this point in time. Abdomen is soft. 12/08/2023, the patient remains intubated on mechanical ventilator and she is in the intensive care unit postop day #2. The patient remains on a mechanical ventilator. She is currently on assist-control mode with rate of 24, tidal volume of 400, FiO2 of 50% with a PEEP of 5. The blood gases from this morning showed a pH of 7.28 with a pCO2 of 32 and pO2 of 105. The chest x-ray was r eviewed and shows evidence of left basilar effusion/atelectasis. Orotracheal tube is in good location. The patient is triple-lumen catheter in her right IJ. Unfortunately, at around 3 AM this morning, the patient went into A-fib RVR and the patient became profoundly hypotensive. The patient progressively required higher dose of norepinephrine and currently norepinephrine is running at 0.2 mcg/kg/min and her mean arterial pressure is around 64. At the same time, the patient received treatment for her new onset atrial fibrillation. She was given an amiodarone bolus and currently she is on amiodarone at 0.5 mg/min. Based on her underlying hypotension. The patient was thought to hemodynamically unstable with A-fib RVR. The patient received cardioversion on 3 separate occasions using 120 J, 150 J and 200 J. Those attempts failed and the patient remained in atrial fibrillation. Her current heart rate is running at around 150 beats a minute, irregular. Urine output has dropped and the patient is producing only 10 cc an hour. At the same time, the patient's white cell count is up to 33.3 with a hemoglobin 12.1 and platelet count of 412. NG tube is in place. Output is minimal. Abdomen remains soft. The wound VAC is still in place. There is some liquidy stool material in the colostomy bag. No abdominal distention. The patient has been developing progressive edema and upper extremities in the left lower extremity. 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 Rest of the electrolytes show a sodium level of 143, serum bicarb is down to 12, anion gap is at 6, BUN is at 17 with a creatinine of 0.8. Magnesium level is at 1.9 with a calcium level of 7.9. The patient remains on IV cefepime and Flagyl. Urine culture from 12/04/2023 was positive for Klebsiella pneumoniae. She is currently afebrile. Propofol is running at 35 mcg/kg/min. The patient has been adequately sedated for now. Patient was reevaluated today on 12/09/2023, remains intubated and mechanically ventilated. On assist-control rate of 24 tidal volume 400 FiO2 50% and PEEP of 5. ABG showed a pO2 of 128 pCO2 35 pH 7.39. His FiO2 was cut down to 40% instead of 50%. Patient remained on multiple drips including norepinephrine, 0.04 mcg/kg/min, propofol at 35 mcg/kg/min, vasopressin at 0.03 units/min, D5W with 3 A of bicarb running at 150 cc/h. Patient is receiving vancomycin and Merrem. Patient has a left IJ triple-lumen catheter and left radial arterial line. Urine is positive Klebsiella, blood cultures were noted to be also positive for gram-negative bacilli. Most likely Klebsiella. Patient is on Merrem and she is on vancomycin patient is now postoperative day #3. Patient received 2 units of packed RBCs, since admission, hemoglobin now is 9.8, hemoglobin went as low as 7.4 on 12/04 labs today showed PTT of 57.4, basic metabolic profile is normal except for low potassium of 3.0 bicarb is 16, renal profile is normal WBC count is 28.5 hemoglobin is 9.8 urine cultures are positive for Klebsiella pneumoniae. Nutrition hicks the patient is receiving vital HP 10 cc/h. Patient remains in atrial fibrillation, rate seems to be reasonably controlled Patient was reevaluated today on 12/10/2023, remains in the ICU, intubated and mechanically ventilated. Earlier this morning I was made aware of the patient's chest x-ray showing complete collapse of the left lung, and tracheal deviation to the ipsilateral side. This was clearly consistent with mucous plugging involving the left mainstem bronchus. Hence the patient underwent bronchoscopy, suctioning of the mucous plugs, and bronchoalveolar lavage of the left upper lobe lingula and left lower lobe. Please refer to the full operative report regarding this procedure. Patient remains intubated, mechanically ventilated, she is on assist-control rate of 24 tidal volume 400 FiO2 is now 50% PEEP of 10 and I cut it down to 8. Patient remains on multiple drips including norepinephrine at 0.06 mcg/kg/min vasopressin at 0.04 units/h, bicarb drip which I have discontinued today, Cardizem drip at 5 mg/h. Patient is also on heparin drip, propofol at 15 mcg/kg/min. Antibiotics hicks remains on Merrem for Kle bsiella infection involving urine and blood. Chest x-ray as noted above, patient had complete opacification of the left lung, however after bronchoscopy and BAL significant improvement was noted and aeration of left lung significantly improved. ABG this morning on 40% showed a pO2 of 55 pCO2 48 and pH of 7.39 BBC count is 19.7, improving hemoglobin is 9.1. Platelets 253. ASIC metabolic profile is normal and renal profile is normal Patient was placed today on 12/11/2023, remains in the ICU, intubated and mechanically ventilated, sedated. On assist-control rate of 24 tidal volume 400 FiO2 50% and PEEP of 8 patient is requiring hemodynamic support with vasopressin 0.04 units, norepinephrine at 0.03 mcg/kg/min, patient is nutritionally supported with vital HP at 53 mL/h. ABG showed a pO2 of 96 pCO2 39 pH of 7.48. Patient remains on vancomycin and Merrem, urine output is about 40 cc/h hence I recommended Lasix to be given today 40 mg IV push x 1. Patient has a functioning ostomy, and she continues to have a wound VAC in place. CODE STATUS has been changed to DNR, yesterday, the patient underwent a bronchoscopy for complete opacification of the left lung, cultures from the BAL are pending, on today's chest x-ray there is minimal atelectasis in the left midlung, left lung remains relatively fully expanded Patient was reevaluated today on 12/12/2023, remains in the ICU intubated and mechanically ventilated. Patient is still requiring pressors, still on assist- control rate of 24 tidal volume 400 FiO2 45% PEEP is 8 and I cut it down to 6 today. ABG showed a pO2 of 105 pCO2 37 pH of 7.52 patient has been off propofol for the last 24 hours, still receiving heparin, she is on vasopressin at 0.02, and on norepinephrine at 0.01 mcg/kg/min. Antibiotics hicks, patient remains on Merrem and Eraxis. Patient is arousable, opens her eyes, extremely weak, however she is able to squeeze hands only. Continues to have leukocytosis with WBC count of 16.1 hemoglobin is 8.6, basic metabolic profile is normal. Nutrition hicks, patient remains on vital HP at 53/53 cc/h. Plan today on this patient is to continue patient off any sedation, and hopefully give the patient a trial of pressure support and CPAP, I do not believe the patient is ready to be extubated, but will start at least at times of weaning trials with pressure support mode of mechanical ventilation Patient was evaluated today on 12/13/2023, remains in the ICU, intubated and mechanically ventilated, patient is on assist-control rate of 24 tidal volume 400 FiO2 45% and PEEP of 6. ABG was done this morning. Overall the patient has not shown any significant change in the last few days, remains off sedation, pat ient is arousable, follows simple instructions like squeezing hands and wiggling toes. Hence I plan to give the patient today a trial of pressure support of 12 and CPAP, patient is still requiring a tiny bit of norepinephrine at 0.01 mcg/kg/min, patient remains on vital HP at 53 cc/h, and on heparin drip. Cardiac hicks, patient is on Merrem. Patient looks edematous and swollen, I recommended Lasix 40 mg IV push x 1 today chest x-ray is showing small left pleural effusion and atelectasis.WBC count is 15.1 hemoglobin 8.6. Basic metabolic profile is normal. BUN and creatinine are normal. Patient presented today on 12/14/2023, patient remains in the ICU, remains intubated and mechanically ventilated, on assist-control rate of 24 tidal volume 400 FiO2 35% and PEEP of 6. ABG not done today. Patient remains on antibiotics in the form of Eraxis and Merrem.Patient had Romelia and bronchoalveolar lavage, and she had Klebsiella pneumonia in her urine chest x-ray continues to show some minimal left basilar atelectasis. WBC count is 13.5 hemoglobin is 8.8, PTT is 44 basic metabolic profile is normal renal profile is normal, patient is not requiring any pressors anymore. Continues to improve with intermittent Lasix and should be given more Lasix today. Patient went on pressure support and CPAP almost 8 hours yesterday, she was transitioned to assist-control mode of mechanical ventilation overnight, and this morning early this morning, she was placed back on pressure support and CPAP. Hence the patient will be extubated to BiPAP, and we will continue to monitor the patient in the ICU. Although patient's CODE STATUS has been changed to no code, and not to reintubate if she fails extubation patient was reevaluated today on 12/15/2023, remains in the ICU, patient has been on BiPAP all the day yesterday, however at night she was placed on nasal cannula, apparently the patient kept taking her BiPAP off, and the decision was made by the nurses to place on nasal cannula, she tolerated nasal cannula overnight quite well, however this morning her chest x-ray showed complete wi dening of the left lung. Patient developed mucous plugging again involving the left mainstem bronchus and the left lung,, this required bronchoscopy done at bedside with IV conscious sedation, and I was able to remove all the mucous plugs from the left lung, and follow-up chest x-ray postoperatively showed complete reexpansion of the left lung. Meantime the patient remains on Lasix 40 mg IV push daily and I have been ordering that on a daily basis, patient will receive Ativan on BiPAP to keep her wearing the BiPAP overnight, presently her BiPAP is 16/6/50%. IV fluids at KVO, she is on vital HP at 40 cc/h which will be restarted. Labs today show WBC count of 11 hemoglobin 8.6 hematocrit 27.8 basic metabolic profile is normal renal profile is normal. Patient remains on amiodarone, Eraxis, heparin, Ativan 0.5 mg every 4 hours as needed while she is on BiPAP, she is also on Merrem, pantoprazole 40 mg IV push daily, patient has been off norepinephrine since last night CBC showed WC of 11 hemoglobin 8.6 PTT is 36.7 basic metabolic profile is normal BUN is 28 creatinine 0.44 The patient is seen today December 16, 2023 in follow-up in the intensive care unit. She is currently sitting up in bed. Awake. Currently on BiPAP 12/6 and 40% FiO2. She remains on a heparin drip. Normal saline it keep mean open. Chest x-ray continues to show worsening aeration and volume loss in the left lower lung. She is status post 2 units of packed red blood cells this admission. Current hemoglobin 7.9. Platelets 338. White count 10.7. Sodium 139. Potassium 3.7. Bicarb 35. BUN 29. Creatinine 0.49. Glucose 109. She continues on bronchodilators. Eraxis and meropenem. She is receiving chest physiotherapy in an attempt to keep the left lung open. She did undergo bedside bronchoscopy yesterday with improved aeration however within 24 hours there is new left lower lobe collapse. She is not to be reintubated and remains a DO NOT RESUSCITATE CODE STATUS. The patient is seen today December 17, 2023 in follow-up in the intensive care unit. She is currently resting in bed. She remains on the BiPAP 12/6 and 40% FiO2. Today's chest x-ray shows recurrent complete whiteout of the left lung. Bronchoalveolar wash was positive for Romelia only. White count 10.0. Hemoglobin 8.1. Platelets 373. Sodium 139. Potassium 3.6. Bicarb 32. BUN 28. Creatinine 0.51. Glucose 113. She is continued on DuoNebs, antibiotics in the form of Merrem. Continued on Eraxis. She is on a heparin drip. Continued on oral amiodarone. The patient is seen today December 18, 2023 in follow-up in the intensive care unit. She is sitting up in bed. Awake and alert in no acute distress. She remains on a heparin drip. She remains on normal saline at KVO. She is currently on oxygen at 5 L/min per nasal cannula with O2 saturations in the upper 90s. She is afebrile. Hemodynamically stable. Chest x-ray continues to show ongoing complete whiteout with volume loss of the left hemithorax. She has decided not to wear the BiPAP, not to be reintubated, no bronchoscopy procedures. She is continued on Eraxis and meropenem. Remains on bronchodilators. The patient is seen today December 19, 2023 in follow-up in the intensive care unit. She is currently sitting up in bed. Awake and alert in no acute distress. She is maintaining O2 saturations in the 90s on 4 L/min per nasal cannula. She has normal saline at 20 MLS per hour. She is currently in sinus rhythm. She is continued on amiodarone and anticoagulated with Eliquis. Remains on IV diuretics. Remains on Eraxis and meropenem. She is status post 2 units of packed red blood cells this admission. Current hemoglobin 8.3. Platelets 472. White count 8.1. Sodium 138. Potassium 4.0. Bicarb 30. BUN 21. Creatinine 0.44. Glucose 84. Objective - Vital Signs Vital signs: Vital Signs Temp 98.0 F 12/19/23 08:00 Pulse 79 12/19/23 08:00 Resp 20 12/19/23 08:00 BP 98/44 12/19/23 08:00 Pulse Ox 94 L 12/19/23 08:00 FiO2 40 12/17/23 11:28 Intake & Output 12/18/23 12/19/23 12/19/23 18:59 06:59 18:59 Intake Total 340 240 146.6 Output Total 2655 640 225 Balance -2315 -400 -78.4 Weight 93.2 kg 91.6 kg Intake: IV 340 240 146.6 0.9 240 240 80 Meropenem 1 gm In Sodium 100 66.6 Chloride 0.9% 100 ml @ 33 .3 mls/hr IVPB Q8HR [facility] Rx#:[id number] Output: Urine 2515 640 225 Stool 140 Other: Voiding Method Indwelling Catheter Indwelling Catheter Indwelling Catheter ABP, PAP, CO, CI - Last Documented Arterial Blood Pressure 95/53 - Exam GENERAL EXAM: Alert, pleasant 73-year-old female, on 4 L nasal cannula, in no apparent distress. HEAD: Normocephalic. EYES: Normal reaction of pupils, equal size. NOSE: Clear with pink turbinates. THROAT: No erythema or exudates. NECK: No masses, no JVD. CHEST: No chest wall deformity. LUNGS: Equal air entry with crackles, diminished in the left lung base. CVS: S1 and S2 normal with no audible murmur, irregular rhythm. ABDOMEN: No hepatosplenomegaly, normal bowel sounds, no guarding or rigidity. SPINE: No scoliosis or deformity SKIN: No rashes CENTRAL NERVOUS SYSTEM: No focal deficits, tone is normal in all 4 extremities. EXTREMITIES: Right [id number] amputation. Significant swelling of the left lower extremity. Peripheral pulses are intact. - Labs CBC & Chem 7: 12/19/23 04:12 12/19/23 04:12 Labs: Abnormal Lab Results - Last 24 Hours (Table) 12/19/23 12/19/23 Range/Units 04:12 04:12 RBC 3.06 L (3.80-5.40) m/uL Hgb 8.3 L (11.4-16.0) gm/dL Hct 26.7 L (34.0-46.0) % RDW 23.5 H (11.5-15.5) % Plt Count 472 H (150-450) k/uL Lymphocytes # 0.8 L (1.0-4.8) k/uL Chloride 108 H (98-107) mmol/L BUN 21 H (7-17) mg/dL Creatinine 0.44 L (0.52-1.04) mg/dL Calcium 8.0 L (8.4-10.2) mg/dL Assessment and Plan Assessment: Status post exploratory laparotomy, colectomy and diverting colostomy and debridement of cutaneous fistula December 06, 2023 Abdominal sepsis and septic shock New onset atrial fibrillation with RVR, currently on a heparin drip Klebsiella pneumonia urinary tract infection Leukocytosis secondary to above, improving. Recurrent left lung collapse secondary to mucous plugging, status post bronch oscopy and lavage of left lung, done 12/10/2023, also done on 12/15/2023 Acute hypoxic and hypercapnic respiratory failure secondary to above None anion gap metabolic acidosis, resolved, bicarb drip was discontinued today History of previous right above-knee amputation Left buttocks unstageable pressure ulcer Hydropic gallbladder with multiple gallstones Adrenal nodules Strongly suspect critical illness polyneuropathy Plan: The patient was seen and evaluated Labs and medications reviewed Currently on 4 L nasal cannula She declines any further interventions Hospice consult has been placed Will transfer out of the ICU today I have personally seen and examined the patient, performed the documentation and the assessment and plan as written. Number of minutes spent on the visit: 10.
--- NOTE | 2023-12-19 10:35 | P.PN ---
Subjective Progress Note Date: 12/18/23 This is a pleasant 73 years old female who presents to the emergency room for lower abdominal fistula drainage, associated with generalized weakness. Patient looks awake alert but tired looking, pale. Feels generally weak. N has mild generalized abdominal pain and tenderness. No rebound tenderness. Blood with malodorous left lower abdominal fistula drainage with fecal material coming out. Patient also with right rotation. Patient also with unstageable sacral pressure ulcer. With some evidence of cellulitis. Patient is mildly confused. But no headache or weakness in upper or lower patient was hypotensive with a blood pressure/42, currently slightly better 96/43. Potassium is low 2.9, WBC elevated 23,000, hemoglobin 7.4. Creatinine 0.7. Liver enzymes unremarkable. CT of the abdomen pelvis showing sigmoid diverticulitis and proctitis. 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 Please refer to the report for more details. Patient was ordered received normal saline boluses. Currently on Normosol at 130 mL/h She received 1 dose of Zosyn and started on Flagyl. We are going to add cefepime for gram-negative coverage. 12/05/2023 Patient is awake and alert, generally weak and tired, mildly drowsy Denies abdominal pain or tenderness, she has fistula in the left lower abdomen She denies chest pain or dyspnea. No headache dizziness weakness or numbness. No breathing difficulty. And currently she is saturating well on room air. Blood pressure is still on the low side.but is improving while on IV fluid Glucose 65 and her fluids changed to D5 normal saline at 1 30 mL/h She is currently covered with cefepime and IV Flagyl and IV Protonix She has leukocytosis of 23,000, hemoglobin stable 7.9, low potassium been replaced. Magnesium is normal 2.0. B12 541, Elevated ESR 75 and CRP 25 Patient at moderate risk for her multiple medical problems. Because of this echocardiogram was requested and cardiology consulted for preop evaluation. 12/06/2023 Patient remains awake and oriented, mildly lethargic Patient today was supposed to go for surgery to fix her enteric fistula Blood pressure was on the low side this morning I got a call from the bedside nurse blood pressure was 68/32, a bolus of normal saline is provided as well as midodrine Blood pressure a little low after first bolus, where going to give her another bolus of 1 L follow-up with the blood pressure. 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 Mail Clerk eval into the patient for preop assessment and there is no contraindication to proceed with surgery. Patient remains on normal saline with 30 mL/h, cefepime, IV Flagyl and IV Protonix 12/07/2023 Patient s/p sigmoid colectomy and taken down the fistula with peritoneal lavage, creatinine descending colostomy pouch with rectum Gabriel procedure by surgery team Postoperatively and perioperatively patient was hypotensive, after the procedure she got intubated and sent to the intensive care unit and started on pressors Patient remains on excessive hydration She is making about 10 to 20 mL of urine output She remains on broad-spectrum antibiotics with IV cefepime and Flagyl Patient labs and vitals are reviewed 12/08/2023 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 Patient was started on amiodarone and heparin drip Also patient abdomen soft but she is becoming more anuric She still intubated on mechanical ventilation with assist-control Her leukocytosis is worse at 33,000 urine cultures grewing Klebsiella. Blood cultures positive for gram negative bacilli Her antibiotics was adjusted to meropenem and IV vancomycin. Her fluids running normal saline changed to sodium bicarb at 150 mL/h She is still on IV Protonix Her albumin is low so they are going to give her 1 dose of albumin IV if no improvement 12/09/2023 Patient remains in the ICU intubated and sedated She was still on pressors this morning on Levophed at 0.09, bicarbonate drip at 150 mL also vasopressin 0.03. She still has wound VAC in his abdomen. Patient blood pressure started improving 115/45 Potassium 3.4, WBC trending down to 28,000, hemoglobin 9.8. Albumin is 1.5 and patient 2 more bags of albumin 25 g to support her system as she has anasarca and significant swelling of the lower extremities. Patient remains also on broad-spectrum antibiotics with IV vancomycin and meropenem. She is also on Protonix. Discussed with staff. 12/10/2023 pt remains in the icu intubated and sedated pt chest xray showing left hemilthorax collapse pt requiring pressors, planning to wean down if possible c'w treatment for a fib with amiodaron and heparin drip still on broad spectrum antibioitc 12/11/2023 Patient felt to be improving although she still intubated in the ICU in critical condition and followed closely by pulmonary/critical care team Levophed dose decreased from yesterday 0.09 down to 0.03. Bicarb drip was stopped. Vasopressin dose actually slightly increased from 0.03 up to 0.04. Heparin drip was continued. Patient continued on tube feeding Antibiotic with vancomycin and meropenem, Eraxis added today 12/12/2023 Patient remains intubated in the ICU Patient showing signs of improving gradually. She is requiring less pressors of Levophed today was down to 0.01, she was on vasopressin 0.04 trying to wean it down to 0.0 3 in the morning and see the response of the patient through the day. Her leukocytosis also coming down 20,000 down to 16,000, Patient continued on broad-spectrum antibiotics of meropenem, IV vancomycin and Eraxis. Also she is on oral amiodarone with cardiology following closely. 12/13/2023 Patient remains in the ICU intubated and sedated with pulmonary/critical care team following closely and help with the vent management. Actually today there were trying sedation holiday and patient has been waking up and follows simple commands. Patient could come off pressors today and her blood pressure remained stable. She remains on heparin drip for her A-fib about amiodarone drip switched to oral amiodarone 200 mg by her rn float Labs look stable or slightly fluctuating. Remains on IV vancomycin, meropenem and Eraxis 12/14/2023 Patient is still intubated in the ICU, she is off sedation. She open eyes to verbal commands and trying to follow commands. She is off pressors She remains on meropenem and Eraxis Patient significantly edematous His heart rate is controlled regarding his A-fib 12/15/2023 Patient remains in the ICU. She is s/p extubation today. Blood she has left lung collapse so she underwent bronchoscopy with Dr. More and postprocedure x- ray showing expanded left lung as before. Patient continues on BiPAP for now. She needed short time off Levophed but stopped. Her blood pressure is supported. She continues to improve slowly and gradually. WBC count down to 15 down to 11,000. Afebrile. She is continued on meropenem and Eraxis She is on heparin drip for new onset A-fib and RVR on admission 12/16/2023 Patient is currently in the MICU. On BiPAP. Awake alert and oriented x 3. Chest x-ray showed interval worsening aeration and volume loss at the left lower lung. Suspect increasing atelectasis and now moderate effusion. Patient was given a dose of IV Lasix today. Denies any complaints of chest pain. Still having shortness of breath. Afebrile. Laboratory data showed WBC 10.7 hemoglobin 7.9 and platelets 338 Sodium 139 potassium 3.7 chloride 109 bicarb 35 BUN 29 creatinine 0.49 and calcium 7.4. Patient is being continued on heparin drip and is also on amiodarone. Cardiology and pulmonary is on board. 12/17/2023 Patient is in the MICU. Still requiring BiPAP at 40% FiO2. Otherwise patient is awake alert and oriented. Afebrile. Chest x-ray today showed recurrent whiteout and volume loss on the left. Patient is being continued on antibiotics in the form of meropenem and also on IV Lasix. Heparin drip due to atrial fibrillation and also on amiodarone. Patient is on micafungin due to Romelia albicans growing in the bronchoalveolar lavage. Urine cultures on 12/04/2023 showed Klebsiella pneumonia. Laboratory data showed WBC 10.0 hemoglobin 8.1 and platelets 373 Bicarb is 32 potassium 3.6 BUN 28 and creatinine 0.51 and blood sugar 113 and calcium is 10.8. Pulmonary cardiology and ID is on board. 12/18/2023 Patient is currently in the MICU. Awake alert and oriented x 3. Patient is more alert today. On oxygen at 5 L via nasal cannula. Rest patient was being continued heparin drip and also on amiodarone. Chest x-ray showed ongoing complete whiteout and volume loss of left hemithorax. Patient is being continued Lasix 40 mg IV daily and anticoagulation changed to Eliquis. Cardiology and pulmonary is on board. Current medications reviewed. Objective - Vital Signs Vital signs: Vital Signs Temp 98.0 F 12/18/23 08:00 Pulse 73 12/18/23 10:00 Resp 18 03/13/24 10:00 BP 97/56 12/18/23 10:00 Pulse Ox 100 12/18/23 10:00 FiO2 40 12/17/23 11:28 Intake & Output 12/17/23 12/18/23 12/18/23 18:59 06:59 18:59 Intake Total 1095 590 180 Output Total 1245 1090 1490 Balance -150 -500 -1310 Weight 93.2 kg Intake: IV 540 340 180 0.9 240 240 80 Anidulafungin 100 mg In 100 Sodium Chloride 0.9% 100 ml @ 84 mls/hr IVPB DAILY @1600 [facility] Rx#:[id number] Meropenem 1 gm In Sodium 200 100 100 Chloride 0.9% 100 ml @ 33 .3 mls/hr IVPB Q8HR [facility] Rx#:[id number] Intake, IV Titration 250 Amount Heparin Sod,Pork in 0.45% 250 NaCl 25,000 unit In 0.45 % NaCl 1 250ml.bag @ 10. 661 UNITS/KG/HR 10 mls/hr IV .Q24H [facility] Rx#: [id number] Tube Feeding 495 Other 60 Output: Urine 895 1090 1390 Stool 350 100 Other: Voiding Method Indwelling Catheter Indwelling Catheter Indwelling Catheter ABP, PAP, CO, CI - Last Documented Arterial Blood Pressure 95/53 - Exam - Exam -GENERAL: The patient is awake alert and oriented. On BiPAP currently. Bilateral lower extremity HEENT: Pupils are round and equally reacting to light. EOMI. No scleral icterus. No conjunctival pallor. Normocephalic, atraumatic. No pharyngeal erythema. No thyromegaly. CARDIOVASCULAR: S1 and S2 present. No murmurs, rubs, or gallops. PULMONARY: Bibasilar diminished sounds and left basilar coarse sounds., no wheezing. Nonlabored breathing. -ABDOMEN: Soft, nontender, nondistended, normoactive bowel sounds. No palpable organomegaly. Left lower abdominal colostomy bag MUSCULOSKELETAL: No joint swelling or deformity. -EXTREMITIES: No cyanosis, clubbing, bilateral trace pedal edema. Right elbow knee amputation, old NEUROLOGICAL: Gross neurological examination did not reveal any focal deficits. SKIN: No rashes. no petechiae. - Labs CBC & Chem 7: 12/19/23 04:12 12/19/23 04:12 Labs: Abnormal Lab Results - Last 24 Hours (Table) 12/17/23 12/17/23 12/17/23 Range/Units 11:56 18:06 23:49 RBC (3.80-5.40) m/uL Hgb (11.4-16.0) gm/dL Hct (34.0-46.0) % MCHC (31.0-37.0) g/dL RDW (11.5-15.5) % Lymphocytes # (1.0-4.8) k/uL APTT (22.0-30.0) sec Chloride (98-107) mmol/L BUN (7-17) mg/dL POC Glucose (mg/dL) 122 H 130 H 130 H (70-110) mg/dL Calcium (8.4-10.2) mg/dL 12/18/23 12/18/23 12/18/23 Range/Units 04:01 04:01 04:01 RBC 3.13 L (3.80-5.40) m/uL Hgb 8.2 L (11.4-16.0) gm/dL Hct 28.6 L (34.0-46.0) % MCHC 28.8 L (31.0-37.0) g/dL RDW 23.5 H (11.5-15.5) % Lymphocytes # 0.9 L (1.0-4.8) k/uL APTT 48.9 H (22.0-30.0) sec Chloride 110 H (98-107) mmol/L BUN 23 H (7-17) mg/dL POC Glucose (mg/dL) (70-110) mg/dL Calcium 8.1 L (8.4-10.2) mg/dL Assessment and Plan Assessment: Acute sigmoid sigmoid colitis, diverticulitis with proctitis. With multiple entero-cutaneous and entero-vesical fistulas, including to the left lower abdominal wall. Septic shock secondary to above new onset. Improved Acute hypoxic respiratory failure requiring intubation and mechanical ventilati on. S/p extubation on 12/24. Patient is currently on BiPAP Left lung collapse secondary to mucous plugging status post bronchoscopy and lavage of left lung. Done on 12/10/2023 and also on 12/15/2023 Klebsiella urinary tract infection New onset A-fib and RVR Acute kidney injury, Improved no more need for dialysis Acute anemia, unknown baseline, chronic microcytic. S/p units of PRBC transfusion Full-thickness sacral pressure ulcer, left buttock. With no obvious osseous erosions. Metabolic encephalopathy, with possible elements of delirium Bilateral adrenal nodule, recommend follow-up CT in 3 months. Hydropic gallbladder with multiple gallstones Anasarca With severe hypoalbuminemia Suspect critical illness polyneuropathy Patient is currently on BiPAP. Plan: Patient is currently on BiPAP Continue with antibiotic, meropenem and Eraxis ID team on the case. Continue with wound care and wound VAC in place with surgery team following closely Patient is being currently on Lasix 40 mg IV daily. pulmonary/critical care team is on board. Patient is on Eliquis and oral amiodarone for new onset atrial fibrillation with RVR. Heparin drip has been discontinued. Monitor and follow-up blood culture repeat cultures negative. DVT prophylaxis: Patient is on IV heparin, SCD GI prophylaxis: Protonix Prognosis guarded, CODE STATUS DNR/DNI Prognosis is poor at this time. Patient has declined BiPAP, bronchoscopy, reintubation. Time with Patient: Greater than 30
--- NOTE | 2023-12-19 12:04 | P.PN ---
Subjective Progress Note Date: 12/19/23 CHIEF COMPLAINT: Perforated diverticular disease with fistulization to the skin HISTORY OF PRESENT ILLNESS: The patient is a [id number]-year-old female status post exploratory laparotomy, Magaña's procedure for colocutaneous fistula and septic shock. Patient being downgraded to [facility] no telemetry. She is currently tolerating a low fiber diet. There is a hospice meeting scheduled this afternoon. Patient has refused to be placed back on BiPAP, declined NG tube.declines any further interventions. CODE STATUS is no code. Ostomy is functioning. Afebrile. WBC is 8.1 Hgb 8.3 platelets 472 PHYSICAL EXAM: VITAL SIGNS: Reviewed GENERAL: no acute distress. HEENT: No sclera icterus. Extraocular movements grossly intact. Moist buccal mucosa. Head is atraumatic, normocephalic. Hears conversational speech. No nasal drainage. NECK: Supple without lymphadenopathy. CHEST: Non-labored respirations and equal bilateral excursions. CARDIOVASCULAR: Palpable 2+ radial pulses. ABDOMEN: Soft. Nondistended. Prevana wound vac intact and to wall suction. Stoma beefy red. Stool in ostomy bag. Left lower abdomen below ostomy is also a wound VAC. MUSCULOSKELETAL: No clubbing or cyanosis. NEUROLOGIC: No focal or lateralizing signs. Cranial nerves II through XII grossly intact. PSYCH: Intubated ASSESSMENT: 1. Septic shock 2. 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 Lack of general medical care 4. Complicated left groin wound, 4 cm 5. Intermesenteric abscess, pelvis 6. Left inguinal hernia 7. Atrial fibrillation with rapid ventricular response 8. Collapsed left lung with prior bronchoscopy x 2 PLAN: -Patient has scheduled hospice meeting today -Downgrade to [facility] -Continue low fiber diet. Patient and family are aware she is high risk for aspiration -Continue Prevana wound VAC system to high wall suction -continue wound vac -Continue pain management -Continue antibiotics and antifungal per ID service Physician Salon Receptionist note has been reviewed by physician. Signing provider agrees with the documented findings, assessment, and plan of care. Objective - Vital Signs Vital signs: Vital Signs Temp 98.0 F 12/19/23 08:00 Pulse 76 12/19/23 11:00 Resp 20 12/19/23 11:00 BP 98/44 12/19/23 11:00 Pulse Ox 98 12/19/23 11:00 FiO2 40 12/17/23 11:28 Intake & Output 12/18/23 12/19/23 12/19/23 18:59 06:59 18:59 Intake Total 340 240 146.6 Output Total 2655 640 225 Balance -2315 -400 -78.4 Weight 93.2 kg 91.6 kg Intake: IV 340 240 146.6 0.9 240 240 80 Meropenem 1 gm In Sodium 100 66.6 Chloride 0.9% 100 ml @ 33 .3 mls/hr IVPB Q8HR [facility] Rx#:[id number] Output: Urine 5189 640 225 Stool 140 Other: Voiding Method Indwelling Catheter Indwelling Catheter Indwelling Catheter ABP, PAP, CO, CI - Last Documented Arterial Blood Pressure 95/53 - Labs CBC & Chem 7: 12/19/23 04:12 12/19/23 04:12 Labs: Abnormal Lab Results - Last 24 Hours (Table) 12/19/23 12/19/23 Range/Units 04:12 04:12 RBC 3.06 L (3.80-5.40) m/uL Hgb 8.3 L (11.4-16.0) gm/dL Hct 26.7 L (34.0-46.0) % RDW 23.5 H (11.5-15.5) % Plt Count 472 H (150-450) k/uL Lymphocytes # 0.8 L (1.0-4.8) k/uL Chloride 108 H (98-107) mmol/L BUN 21 H (7-17) mg/dL Creatinine 0.44 L (0.52-1.04) mg/dL Calcium 8.0 L (8.4-10.2) mg/dL
--- NOTE | 2023-12-19 14:18 | P.PN ---
Subjective Progress Note Date: 12/18/23 Principal diagnosis: Reason for follow-up is complicated diverticulitis with colocutaneous fistula Patient is a 73-year-old female who was brought into the ER at [facility] for the patient complaining of generalized weakness patient noticed to have sacral pressure ulcer and also complicate diverticulitis with a fistula to the left lower abdominal wall.Patient was taken to the OR on 12/06/2023 and this patient was status post exploratory laparotomy with sigmoid colectomy takedown of the colocutaneous fistula left inguinal hernia repair and peritoneal lavage. On today's evaluation that is 12/18/2023, Patient is afebrile patient is currently on 5 L current oxygen and denies having any shortness of breath, the patient denies any chest pain or cough, the patient denies any nausea vomiting did not have any abdominal pain and no diarrhea Patient did have a white count of 8.9, creatinine is 0.52 Objective - Vital Signs Vital signs: Vital Signs Temp 98.0 F 12/18/23 08:00 Pulse 80 12/18/23 12:00 Resp 24 12/18/23 12:00 BP 97/56 12/18/23 12:00 Pulse Ox 97 12/18/23 12:00 FiO2 40 12/17/23 11:28 Intake & Output 12/17/23 12/18/23 12/18/23 18:59 06:59 18:59 Intake Total 1095 590 220 Output Total 1245 1090 2115 Balance -150 -500 -1895 Weight 93.2 kg Intake: IV 540 340 220 0.9 240 240 120 Anidulafungin 100 mg In 100 Sodium Chloride 0.9% 100 ml @ 84 mls/hr IVPB DAILY @1600 [facility] Rx#:[id number] Meropenem 1 gm In Sodium 200 100 100 Chloride 0.9% 100 ml @ 33 .3 mls/hr IVPB Q8HR [facility] Rx#:[id number] Intake, IV Titration 250 Amount Heparin Sod,Pork in 0.45% 250 NaCl 25,000 unit In 0.45 % NaCl 1 250ml.bag @ 10. 661 UNITS/KG/HR 10 mls/hr IV .Q24H [facility] Rx#: [id number] Tube Feeding 495 Other 60 Output: Urine 895 1090 2015 Stool 350 100 Other: Voiding Method Indwelling Catheter Indwelling Catheter Indwelling Catheter ABP, PAP, CO, CI - Last Documented Arterial Blood Pressure 95/53 - Exam GENERAL DESCRIPTION: An elderly female lying in bed in no distress RESPIRATORY SYSTEM: Unlabored breathing , decreased breath sounds at bases HEART: S1 S2 regular rate and rhythm , ABDOMEN: Soft , no tenderness EXTREMITIES: No edema feet - Labs CBC & Chem 7: 12/19/23 04:12 12/19/23 04:12 Labs: Abnormal Lab Results - Last 24 Hours (Table) 12/17/23 12/17/23 12/18/23 Range/Units 18:06 23:49 04:01 RBC (3.80-5.40) m/uL Hgb (11.4-16.0) gm/dL Hct (34.0-46.0) % MCHC (31.0-37.0) g/dL RDW (11.5-15.5) % Lymphocytes # (1.0-4.8) k/uL APTT 48.9 H (22.0-30.0) sec Chloride (98-107) mmol/L BUN (7-17) mg/dL POC Glucose (mg/dL) 130 H 130 H (70-110) mg/dL Calcium (8.4-10.2) mg/dL 12/18/23 12/18/23 Range/Units 04:01 04:01 RBC 3.13 L (3.80-5.40) m/uL Hgb 8.2 L (11.4-16.0) gm/dL Hct 28.6 L (34.0-46.0) % MCHC 28.8 L (31.0-37.0) g/dL RDW 23.5 H (11.5-15.5) % Lymphocytes # 0.9 L (1.0-4.8) k/uL APTT (22.0-30.0) sec Chloride 110 H (98-107) mmol/L BUN 23 H (7-17) mg/dL POC Glucose (mg/dL) (70-110) mg/dL Calcium 8.1 L (8.4-10.2) mg/dL Assessment and Plan (1) Diverticulitis of intestine, part unspecified, without perforation or abscess without bleeding Current Visit: Yes Status: Acute Code(s): K57.92 - DVTRCLI OF INTEST, PART UNSP, W/O PERF OR ABSCESS W/O BLEED SNOMED Code(s): 119307358 (2) Leukocytosis Current Visit: Yes Status: Acute Code(s): D72.829 - ELEVATED WHITE BLOOD CELL COUNT, UNSPECIFIED SNOMED Code(s): 741594220 (3) Sepsis Current Visit: Yes Status: Acute Code(s): A41.9 - SEPSIS, UNSPECIFIED ORGANISM SNOMED Code(s): 38898059 (4) Gram-negative bacteremia Current Visit: Yes Status: Acute Code(s): R78.81 - BACTEREMIA SNOMED Cod e(s): 463527145199 Plan: 1patient with complicated diverticulitis with evidence of fistulous communication to the skin left lower quadrant area and concern for possible extension to the bladder, will need to cover for the polymicrobial jessie associated with such condition including enteric gram-negative both aerobes and anaerobes 2-patient also have a pressure ulcer but no significant surrounding cellulitis, wound care has been consulted continue local wound care per them 3gram-negative 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 with ID sensitivities pendi ng, repeat blood culture has been negative so far 3-patient is status post extensive surgery including 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 5patient sputum culture grew Romelia bronchoscopy culture also grew Romelia as well as abdominal culture growing Romelia albicans 6-patient remains to be afebrile and white count has normalized today down to 8000 today 7- patient is currently covered with meropenem still waiting for the final on the blood culture drawn on 12/04/2023 along with Eraxis, and monitor clinical course closely Dictation was produced using [employer] dictation software. please excuse any grammatical, word or spelling errors. Time with Patient: Less than 30
--- NOTE | 2023-12-19 14:20 | P.PN ---
Subjective Progress Note Date: 12/19/23 Principal diagnosis: Reason for follow-up is complicated diverticulitis with colocutaneous fistula Patient is a 73-year-old female who was brought into the ER at [facility] for the patient complaining of generalized weakness patient noticed to have sacral pressure ulcer and also complicate diverticulitis with a fistula to the left lower abdominal wall.Patient was taken to the OR on 12/06/2023 and this patient was status post exploratory laparotomy with sigmoid colectomy takedown of the colocutaneous fistula left inguinal hernia repair and peritoneal lavage. On today's evaluation that is 12/19/2023, patient has been afebrile, patient is breathing comfortably and is currently on 5 L nasal cannula oxygen, patient denies having any significant cough no chest pain shortness of breath, patient denies nausea vomiting or diarrhea and no abdominal pain. Patient did have white count of 8.1, creatinine 0.44 per discussion with the micro lab the blood culture positive on 12/04/2023 was a Fusobacterium beta- lactamase negative Objective - Vital Signs Vital signs: Vital Signs Temp 98.1 F 12/19/23 12:00 Pulse 85 12/19/23 12:00 Resp 32 H 12/19/23 12:00 BP 110/83 12/19/23 12:00 Pulse Ox 97 12/19/23 12:00 FiO2 40 12/17/23 11:28 Intake & Output 12/18/23 12/19/23 12/19/23 18:59 06:59 18:59 Intake Total 340 240 146.6 Output Total 2655 640 225 Balance -2315 -400 -78.4 Weight 93.2 kg 91.6 kg Intake: IV 340 240 146.6 0.9 240 240 80 Meropenem 1 gm In Sodium 100 66.6 Chloride 0.9% 100 ml @ 33 .3 mls/hr IVPB Q8HR [facility] Rx#:[id number] Output: Urine 2515 640 225 Stool 140 Other: Voiding Method Indwelling Catheter Indwelling Catheter Indwelling Catheter ABP, PAP, CO, CI - Last Documented Arterial Blood Pressure 95/53 - Exam GENERAL DESCRIPTION: An elderly female lying in bed in no distress RESPIRATORY SYSTEM: Unlabored breathing , decreased breath sounds at bases HEART: S1 S2 regular rate and rhythm , ABDOMEN: Soft , no tenderness EXTREMITIES: No edema feet - Labs CBC & Chem 7: 12/19/23 04:12 12/19/23 04:12 Labs: Abnormal Lab Results - Last 24 Hours (Table) 12/19/23 12/19/23 Range/Units 04:12 04:12 RBC 3.06 L (3.80-5.40) m/uL Hgb 8.3 L (11.4-16.0) gm/dL Hct 26.7 L (34.0-46.0) % RDW 23.5 H (11.5-15.5) % Plt Count 472 H (150-450) k/uL Lymphocytes # 0.8 L (1.0-4.8) k/uL Chloride 108 H (98-107) mmol/L BUN 21 H (7-17) mg/dL Creatinine 0.44 L (0.52-1.04) mg/dL Calcium 8.0 L (8.4-10.2) mg/dL Assessment and Plan (1) Diverticulitis of intestine, part unspecified, without perforation or abscess without bleeding Current Visit: Yes Status: Acute Code(s): K57.92 - DVTRCLI OF INTEST, PART UNSP, W/O PERF OR ABSCESS W/O BLEED SNOMED Code(s): 992107684 (2) Leukocytosis Current Visit: Yes Status: Acute Code(s): D72.829 - ELEVATED WHITE BLOOD CELL COUNT, UNSPECIFIED SNOMED Code(s): 531047698 (3) Sepsis Current Visit: Yes Status: Acute Code(s): A41.9 - SEPSIS, UNSPECIFIED ORGANISM SNOMED Code(s): 39511234 (4) Gram-negative bacteremia Current Visit: Yes Status: Acute Code(s): R78.81 - BACTEREMIA SNOMED Code(s): 977859984408 Plan: 1patient with complicated diverticulitis with evidence of fistulous communication to the skin left lower quadrant area and concern for possible extension to the bladder, will need to cover for the polymicrobial jessie associated with such condition including enteric gram-negative both aerobes and anaerobes 2-patient also have a pressure ulcer but no significant surrounding cellulitis, wound care has been consulted continue local wound care per them 3Fusobacterium 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 that is beta-lactamase negative repeat blood culture has been negative so far 3-patient is status post extensive surgery including 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 5patient sputum culture grew Romelia bronchoscopy culture also grew Romelia as well as abdominal culture growing Romelia albicans 6-get a final also from the micro lab patient blood cultures on 12/04/2023 was a Fusobacterium that was beta-lactamase negative we will discontinue meropenem start the patient on Unasyn and continue with Eraxis Dictation was produced using [employer] dictation software. please excuse any grammatical, word or spelling errors. Time with Patient: Less than 30
[2023-12-19] MEDS: AMPICILLIN-SULBACTAM 3 GM in SODIUM CHLORIDE 0.9% 100 ML IVPB SCH (17:47)
--- NOTE | 2023-12-20 01:05 | P.PN ---
Subjective Progress Note Date: 12/19/23 This is a pleasant 73 years old female who presents to the emergency room for lower abdominal fistula drainage, associated with generalized weakness. Patient looks awake alert but tired looking, pale. Feels generally weak. N has mild generalized abdominal pain and tenderness. No rebound tenderness. Blood with malodorous left lower abdominal fistula drainage with fecal material coming out. Patient also with right rotation. Patient also with unstageable sacral pressure ulcer. With some evidence of cellulitis. Patient is mildly confused. But no headache or weakness in upper or lower patient was hypotensive with a blood pressure/42, currently slightly better 96/43. Potassium is low 2.9, WBC elevated 23,000, hemoglobin 7.4. Creatinine 0.7. Liver enzymes unremarkable. CT of the abdomen pelvis showing sigmoid diverticulitis and proctitis. 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 Please refer to the report for more details. Patient was ordered received normal saline boluses. Currently on Normosol at 130 mL/h She received 1 dose of Zosyn and started on Flagyl. We are going to add cefepime for gram-negative coverage. 12/05/2023 Patient is awake and alert, generally weak and tired, mildly drowsy Denies abdominal pain or tenderness, she has fistula in the left lower abdomen She denies chest pain or dyspnea. No headache dizziness weakness or numbness. No breathing difficulty. And currently she is saturating well on room air. Blood pressure is still on the low side.but is improving while on IV fluid Glucose 65 and her fluids changed to D5 normal saline at 1 30 mL/h She is currently covered with cefepime and IV Flagyl and IV Protonix She has leukocytosis of 23,000, hemoglobin stable 7.9, low potassium been replaced. Magnesium is normal 2.0. B12 541, Elevated ESR 75 and CRP 25 Patient at moderate risk for her multiple medical problems. Because of this echocardiogram was requested and cardiology consulted for preop evaluation. 12/06/2023 Patient remains awake and oriented, mildly lethargic Patient today was supposed to go for surgery to fix her enteric fistula Blood pressure was on the low side this morning I got a call from the bedside nurse blood pressure was 68/32, a bolus of normal saline is provided as well as midodrine Blood pressure a little low after first bolus, where going to give her another bolus of 1 L follow-up with the blood pressure. 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 [employer]etr[employer] Manager eval into the patient for preop assessment and there is no contraindication to proceed with surgery. Patient remains on normal saline with 30 mL/h, cefepime, IV Flagyl and IV Protonix 12/07/2023 Patient s/p sigmoid colectomy and taken down the fistula with peritoneal lavage, creatinine descending colostomy pouch with rectum Gabriel procedure by surgery team Postoperatively and perioperatively patient was hypotensive, after the procedure she got intubated and sent to the intensive care unit and started on pressors Patient remains on excessive hydration She is making about 10 to 20 mL of urine output She remains on broad-spectrum antibiotics with IV cefepime and Flagyl Patient labs and vitals are reviewed 12/08/2023 Patient remains in the ICU 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 Patient was started on amiodarone and heparin drip Also patient abdomen soft but she is becoming more anuric She still intubated on mechanical ventilation with assist-control Her leukocytosis is worse at 33,000 urine cultures grewing Klebsiella. Blood cultures positive for gram negative bacilli Her antibiotics was adjusted to meropenem and IV vancomycin. Her fluids running normal saline changed to sodium bicarb at 150 mL/h She is still on IV Protonix Her albumin is low so they are going to give her 1 dose of albumin IV if no improvement 12/09/2023 Patient remains in the ICU intubated and sedated She was still on pressors this morning on Levophed at 0.09, bicarbonate drip at 150 mL also vasopressin 0.03. She still has wound VAC in his abdomen. Patient blood pressure started improving 115/45 Potassium 3.4, WBC trending down to 28,000, hemoglobin 9.8. Albumin is 1.5 and patient 2 more bags of albumin 25 g to support her system as she has anasarca and significant swelling of the lower extremities. Patient remains also on broad-spectrum antibiotics with IV vancomycin and meropenem. She is also on Protonix. Discussed with staff. 12/10/2023 pt remains in the icu intubated and sedated pt chest xray showing left hemilthorax collapse pt requiring pressors, planning to wean down if possible c'w treatment for a fib with amiodaron and heparin drip still on broad spectrum antibioitc 12/11/2023 Patient felt to be improving although she still intubated in the ICU in critical condition and followed closely by pulmonary/critical care team Levophed dose decreased from yesterday 0.09 down to 0.03. Bicarb drip was stopped. Vasopressin dose actually slightly increased from 0.03 up to 0.04. Heparin drip was continued. Patient continued on tube feeding Antibiotic with vancomycin and meropenem, Eraxis added today 12/12/2023 Patient remains intubated in the ICU Patient showing signs of improving gradually. She is requiring less pressors of Levophed today was down to 0.01, she was on vasopressin 0.04 trying to wean it down to 0.0 3 in the morning and see the response of the patient through the day. Her leukocytosis also coming down 20,000 down to 16,000, Patient continued on broad-spectrum antibiotics of meropenem, IV vancomycin and Eraxis. Also she is on oral amiodarone with cardiology following closely. 12/13/2023 Patient remains in the ICU intubated and sedated with pulmonary/critical care team following closely and help with the vent management. Actually today there were trying sedation holiday and patient has been waking up and follows simple commands. Patient could come off pressors today and her blood pressure remained stable. She remains on heparin drip for her A-fib about amiodarone drip switched to oral amiodarone 200 mg by her secondary history teacher Labs look stable or slightly fluctuating. Remains on IV vancomycin, meropenem and Eraxis 12/14/2023 Patient is still intubated in the ICU, she is off sedation. She open eyes to verbal commands and trying to follow commands. She is off pressors She remains on meropenem and Eraxis Patient significantly edematous His heart rate is controlled regarding his A-fib 12/15/2023 Patient remains in the ICU. She is s/p extubation today. Blood she has left lung collapse so she underwent bronchoscopy with Dr. More and postprocedure x- ray showing expanded left lung as before. Patient continues on BiPAP for now. She needed short time off Levophed but stopped. Her blood pressure is supported. She continues to improve slowly and gradually. WBC count down to 15 down to 11,000. Afebrile. She is continued on meropenem and Eraxis She is on heparin drip for new onset A-fib and RVR on admission 12/16/2023 Patient is currently in the MICU. On BiPAP. Awake alert and oriented x 3. Chest x-ray showed interval worsening aeration and volume loss at the left lower lung. Suspect increasing atelectasis and now moderate effusion. Patient was given a dose of IV Lasix today. Denies any complaints of chest pain. Still having shortness of breath. Afebrile. Laboratory data showed WBC 10.7 hemoglobin 7.9 and platelets 338 Sodium 139 potassium 3.7 chloride 109 bicarb 35 BUN 29 creatinine 0.49 and calcium 7.4. Patient is being continued on heparin drip and is also on amiodarone. Cardiology and pulmonary is on board. 12/17/2023 Patient is in the MICU. Still requiring BiPAP at 40% FiO2. Otherwise patient is awake alert and oriented. Afebrile. Chest x-ray today showed recurrent whiteout and volume loss on the left. Patient is being continued on antibiotics in the form of meropenem and also on IV Lasix. Heparin drip due to atrial fibrillation and also on amiodarone. Patient is on micafungin due to Romelia albicans growing in the bronchoalveolar lavage. Urine cultures on 12/04/2023 showed Klebsiella pneumonia. Laboratory data showed WBC 10.0 hemoglobin 8.1 and platelets 373 Bicarb is 32 potassium 3.6 BUN 28 and creatinine 0.51 and blood sugar 113 and calcium is 10.8. Pulmonary cardiology and ID is on board. 12/18/2023 Patient is currently in the MICU. Awake alert and oriented x 3. Patient is more alert today. On oxygen at 5 L via nasal cannula. Rest patient was being continued heparin drip and also on amiodarone. Chest x-ray showed ongoing complete whiteout and volume loss of left hemithorax. Patient is being continued Lasix 40 mg IV daily and anticoagulation changed to Eliquis. Cardiology and pulmonary is on board. 12/19/2023 Patient is in the intensive care unit. Awake alert and oriented x 3. Currently oxygen requirement down to 4 L via nasal cannula. Patient has been afebrile. Tolerating oral diet slowly. Breathing status is fairly stable. Patient is being transferred to medical floor today. Otherwise patient is being continued on antibiotics at home with meropenem changed to Unasyn, and also on micafungin. Currently maintaining sinus rhythm. Patient is on amiodarone and Eliquis. Laboratory data showed WBC 8.1 hemoglobin 8.3 and platelets 472 Sodium 138 potassium 4.0 chloride 108 bicarb is 30 BUN 21 and creatinine 0.44 and calcium 8.0. Current medications reviewed. Objective - Vital Signs Vital signs: Vital Signs Temp 98.0 F 12/19/23 08:00 Pulse 79 12/19/23 08:00 Resp 20 12/19/23 08:00 BP 98/44 12/19/23 08:00 Pulse Ox 94 L 12/19/23 08:00 FiO2 40 12/17/23 11:28 Intake & Output 12/18/23 12/19/23 12/19/23 18:59 06:59 18:59 Intake Total 340 240 146.6 Output Total 2655 640 225 Balance -2315 -400 -78.4 Weight 93.2 kg 91.6 kg Intake: IV 340 240 146.6 0.9 240 240 80 Meropenem 1 gm In Sodium 100 66.6 Chloride 0.9% 100 ml @ 33 .3 mls/hr IVPB Q8HR [facility] Rx#:[id number] Output: Urine 2515 640 225 Stool 140 Other: Voiding Method Indwelling Catheter Indwelling Catheter Indwelling Catheter ABP, PAP, CO, CI - Last Documented Arterial Blood Pressure 95/53 - Exam - Exam -GENERAL: The patient is awake alert and oriented. On BiPAP currently. Bilateral lower extremity HEENT: Pupils are round and equally reacting to light. EOMI. No scleral icterus. No conjunctival pallor. Normocephalic, atraumatic. No pharyngeal erythema. No thyromegaly. CARDIOVASCULAR: S1 and S2 present. No murmurs, rubs, or gallops. PULMONARY: Bibasilar diminished sounds and left basilar coarse sounds., no wheezing. Nonlabored breathing. -ABDOMEN: Soft, nontender, nondistended, normoactive bowel sounds. No palpable organomegaly. Left lower abdominal colostomy bag MUSCULOSKELETAL: No joint swelling or deformity. -EXTREMITIES: No cyanosis, clubbing, bilateral trace pedal edema. Right elbow knee amputation, old NEUROLOGICAL: Gross neurological examination did not reveal any focal deficits. SKIN: No rashes. no petechiae. - Labs CBC & Chem 7: 12/19/23 04:12 12/19/23 04:12 Labs: Abnormal Lab Results - Last 24 Hours (Table) 12/19/23 12/19/23 Range/Units 04:12 04:12 RBC 3.06 L (3.80-5.40) m/uL Hgb 8.3 L (11.4-16.0) gm/dL Hct 26.7 L (34.0-46.0) % RDW 23.5 H (11.5-15.5) % Plt Count 472 H (150-450) k/uL Lymphocytes # 0.8 L (1.0-4.8) k/uL Chloride 108 H (98-107) mmol/L BUN 21 H (7-17) mg/dL Creatinine 0.44 L (0.52-1.04) mg/dL Calcium 8.0 L (8.4-10.2) mg/dL Assessment and Plan Assessment: Acute sigmoid sigmoid colitis, diverticulitis with proctitis. With multiple entero-cutaneous and entero-vesical fistulas, including to the left lower abdominal wall. Septic shock secondary to above new onset. Improved Acute hypoxic respiratory failure requiring intubation and mechanical ventilation. S/p extubation on 12/24. Patient is currently on BiPAP-->4L via NC Left lung collapse secondary to mucous plugging status post bronchoscopy and lavage of left lung. Done on 12/10/2023 and also on 12/15/2023 Klebsiella urinary tract infection New onset A-fib and RVR Acute kidney injury, Improved no more need for dialysis Acute anemia, unknown baseline, chronic microcytic. S/p units of PRBC transfusion Full-thickness sacral pressure ulcer, left buttock. With no obvious osseous erosions. Metabolic encephalopathy, with possible elements of delirium Bilateral adrenal nodule, recommend follow-up CT in 3 months. Hydropic gallbladder with multiple gallstones Anasarca With severe hypoalbuminemia Suspect critical illness polyneuropathy Patient is currently on BiPAP. Plan: Patient is currently on BiPAP Continue with antibiotic, meropenem-->unasyn and Eraxis ID team on the case. Continue with wound care and wound VAC in place with surgery team following closely Patient is being currently on Lasix 40 mg IV daily. pulmonary/critical care team is on board. Patient is on Eliquis and oral amiodarone for new onset atrial fibrillation with RVR. Heparin drip has been discontinued. Monitor and follow-up blood culture repeat cultures negative. DVT prophylaxis: Patient is on IV heparin, SCD GI prophylaxis: Protonix Prognosis guarded, CODE STATUS DNR/DNI Prognosis is poor at this time. Patient has declined BiPAP, bronchoscopy, reintubation. Time with Patient: Greater than 30
[2023-12-20 06:48] LABS: African American GFR (CKD) >90 (>60 ml/min/1.73 sqM); Anion Gap -1 mmol/L; Blood Urea Nitrogen 20 mg/dL (7-17); Calcium 7.8 mg/dL (8.4-10.2); Carbon Dioxide 33 mmol/L (22-30); Chloride 107 mmol/L (98-107); Glucose 82 mg/dL (74-99); Non-African American GFR(CKD) 86 (>60 ml/min/1.73 sqM); Potassium 3.9 mmol/L (3.5-5.1); Sodium 139 mmol/L (137-145)
[2023-12-20 08:36] LABS: Basophils # (A) 0.04 X 10*3/uL (0.00-0.10); Basophils % (A) 0.5 %; Eosinophils # (A) 0.78 X 10*3/uL (0.04-0.35); Eosinophils % (A) 10.3 %; HCT 24.5 % (37.2-46.3); HGB 7.3 g/dL (12.0-15.0); Lymphocytes # (A) 0.96 X 10*3/uL (0.90-5.00); Lymphocytes % (A) 12.6 %; MCH 25.8 pg (27.0-32.0); MCHC 29.8 g/dL (32.0-37.0); MCV 86.6 FL (80.0-97.0); Mean Platelet Volume 10.2 FL (9.5-12.2); Monocytes # (A) 0.52 X 10*3/uL (0.20-1.00); Monocytes % (A) 6.8 %; NRBC Per 100 WBC 0 X 10*3/uL (0.00-0.01); Neutrophils # (A) 5.26 X 10*3/uL (1.80-7.70); Neutrophils % (A) 69.3 %; Platelet Count 522 X 10*3/uL (140-440); RBC 2.83 X 10*6/uL (4.10-5.20); RDW 26.5 % (11.5-14.5)
--- NOTE | 2023-12-20 11:11 | P.PN ---
Subjective Progress Note Date: 12/20/23 This is a 74-year-old female patient who was brought into the intensive care unit after an extensive abdominal surgery. The patient underwent exploratory laparotomy and sigmoid colectomy and diverging colostomy. The patient was emergently taken to the operating room this afternoon as the patient was bec oming hypotensive and she had developed persistent leukocytosis intermittent fevers consistent with sepsis and septic shock. The patient was also becoming hypotensive despite being resuscitated with IV fluids and the patient preoperatively received a total of 3 L of IV fluids. An emergent surgical exploration was indicated. 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 At this point in time, the patient is sedated and the patient is currently on propofol. She is intubated on mechanical ventilator and she is on assist- control mode at a rate of 12, tidal volume of 400, FiO2 of 100% and a PEEP of 5. Chest x-ray shows a right IJ triple-lumen catheter. ET tube is in good loca tion. No airspace disease or consolidation. The blood gases showed a pH of 7.22 with a pCO2 of 51 and pO2 of 255. The patient is currently on no pressors and urine output is quite diminished in the order of 10 to 20 cc since arrival from the operating room. The patient is on IV cefepime and Flagyl. Received a total of 2 unit PRBC intraop 12/07/2023, I am seeing the patient for a follow-up in the intensive care unit. The patient is currently postop day #1. The patient remains intubated on the mechanical ventilator. This morning, the patient is on propofol which is running at 30 mcg/kg/min. She was resuscitated with IV fluids. She was maintained on normal saline at rate of 150 cc an hour and norepinephrine was also added overnight and currently norepinephrine is running at 0.07 mcg/kg/min. Her urine output is in the order of 10 to 20 cc an hour. Overall fluid balance over the past 24 hours has been +3.6 L. The patient remains on a combination of cefepime and Flagyl. The blood work from today shows a WBC count of 37.4, hemoglobin 10.7 and platelet count of 499. BUN is at 15 with a creatinine of 0.8. Sodium is at 143 from yesterday. Repeat electrolytes are still pending for now. Meanwhile, the patient remains intubated on mechanical ventilator. This morning, she is on assist-control mode at rate of 24, tidal volume of 400, FiO2 is at 55% with a PEEP of 5. The blood gas shows a pH of 7.38 with a pCO2 of 31 and pO2 of 119. Review of the chest x-ray from this morning shows adequate positioning of the orotracheal tube. This may need to be pushed in by 1 cm. The patient has a small atelectasis/left-sided pleural effusion. Otherwise, the right lung is essentially clear at this point in time. Antibiotic coverage includes a combination of cefepime and Flagyl. The patient will need Dilaudid for pain control. She is on heparin subcu for DVT prophylaxis. She is resting comfortably in bed. No other significant events overnight. Currently she is afebrile. The wound VAC is in place. Colostomy site is not fully functional at this point in time. Abdomen is soft. 12/08/2023, the patient remains intubated on mechanical ventilator and she is in the intensive care unit postop day #2. The patient remains on a mechanical ventilator. She is currently on assist-control mode with rate of 24, tidal volume of 400, FiO2 of 50% with a PEEP of 5. The blood gases from this morning showed a pH of 7.28 with a pCO2 of 32 and pO2 of 105. The chest x-ray was r eviewed and shows evidence of left basilar effusion/atelectasis. Orotracheal tube is in good location. The patient is triple-lumen catheter in her right IJ. Unfortunately, at around 3 AM this morning, the patient went into A-fib RVR and the patient became profoundly hypotensive. The patient progressively required higher dose of norepinephrine and currently norepinephrine is running at 0.2 mcg/kg/min and her mean arterial pressure is around 64. At the same time, the patient received treatment for her new onset atrial fibrillation. She was given an amiodarone bolus and currently she is on amiodarone at 0.5 mg/min. Based on her underlying hypotension. The patient was thought to hemodynamically unstable with A-fib RVR. The patient received cardioversion on 3 separate occasions using 120 J, 150 J and 200 J. Those attempts failed and the patient remained in atrial fibrillation. Her current heart rate is running at around 150 beats a minute, irregular. Urine output has dropped and the patient is producing only 10 cc an hour. At the same time, the patient's white cell count is up to 33.3 with a hemoglobin 12.1 and platelet count of 412. NG tube is in place. Output is minimal. Abdomen remains soft. The wound VAC is still in place. There is some liquidy stool material in the colostomy bag. No abdominal distention. The patient has been developing progressive edema and upper extremities in the left lower extremity. 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 Rest of the electrolytes show a sodium level of 143, serum bicarb is down to 12, anion gap is at 6, BUN is at 17 with a creatinine of 0.8. Magnesium level is at 1.9 with a calcium level of 7.9. The patient remains on IV cefepime and Flagyl. Urine culture from 12/04/2023 was positive for Klebsiella pneumoniae. She is currently afebrile. Propofol is running at 35 mcg/kg/min. The patient has been adequately sedated for now. Patient was reevaluated today on 12/09/2023, remains intubated and mechanically ventilated. On assist-control rate of 24 tidal volume 400 FiO2 50% and PEEP of 5. ABG showed a pO2 of 128 pCO2 35 pH 7.39. His FiO2 was cut down to 40% instead of 50%. Patient remained on multiple drips including norepinephrine, 0.04 mcg/kg/min, propofol at 35 mcg/kg/min, vasopressin at 0.03 units/min, D5W with 3 A of bicarb running at 150 cc/h. Patient is receiving vancomycin and Merrem. Patient has a left IJ triple-lumen catheter and left radial arterial line. Urine is positive Klebsiella, blood cultures were noted to be also positive for gram-negative bacilli. Most likely Klebsiella. Patient is on Merrem and she is on vancomycin patient is now postoperative day #3. Patient received 2 units of packed RBCs, since admission, hemoglobin now is 9.8, hemoglobin went as low as 7.4 on 12/04 labs today showed PTT of 57.4, basic metabolic profile is normal except for low potassium of 3.0 bicarb is 16, renal profile is normal WBC count is 28.5 hemoglobin is 9.8 urine cultures are positive for Klebsiella pneumoniae. Nutrition hicks the patient is receiving vital HP 10 cc/h. Patient remains in atrial fibrillation, rate seems to be reasonably controlled Patient was reevaluated today on 12/10/2023, remains in the ICU, intubated and mechanically ventilated. Earlier this morning I was made aware of the patient's chest x-ray showing complete collapse of the left lung, and tracheal deviation to the ipsilateral side. This was clearly consistent with mucous plugging involving the left mainstem bronchus. Hence the patient underwent bronchoscopy, suctioning of the mucous plugs, and bronchoalveolar lavage of the left upper lobe lingula and left lower lobe. Please refer to the full operative report regarding this procedure. Patient remains intubated, mechanically ventilated, she is on assist-control rate of 24 tidal volume 400 FiO2 is now 50% PEEP of 10 and I cut it down to 8. Patient remains on multiple drips including norepinephrine at 0.06 mcg/kg/min vasopressin at 0.04 units/h, bicarb drip which I have discontinued today, Cardizem drip at 5 mg/h. Patient is also on heparin drip, propofol at 15 mcg/kg/min. Antibiotics hicks remains on Merrem for Kle bsiella infection involving urine and blood. Chest x-ray as noted above, patient had complete opacification of the left lung, however after bronchoscopy and BAL significant improvement was noted and aeration of left lung significantly improved. ABG this morning on 40% showed a pO2 of 55 pCO2 48 and pH of 7.39 BBC count is 19.7, improving hemoglobin is 9.1. Platelets 253. ASIC metabolic profile is normal and renal profile is normal Patient was placed today on 12/11/2023, remains in the ICU, intubated and mechanically ventilated, sedated. On assist-control rate of 24 tidal volume 400 FiO2 50% and PEEP of 8 patient is requiring hemodynamic support with vasopressin 0.04 units, norepinephrine at 0.03 mcg/kg/min, patient is nutritionally supported with vital HP at 53 mL/h. ABG showed a pO2 of 96 pCO2 39 pH of 7.48. Patient remains on vancomycin and Merrem, urine output is about 40 cc/h hence I recommended Lasix to be given today 40 mg IV push x 1. Patient has a functioning ostomy, and she continues to have a wound VAC in place. CODE STATUS has been changed to DNR, yesterday, the patient underwent a bronchoscopy for complete opacification of the left lung, cultures from the BAL are pending, on today's chest x-ray there is minimal atelectasis in the left midlung, left lung remains relatively fully expanded Patient was reevaluated today on 12/12/2023, remains in the ICU intubated and mechanically ventilated. Patient is still requiring pressors, still on assist- control rate of 24 tidal volume 400 FiO2 45% PEEP is 8 and I cut it down to 6 today. ABG showed a pO2 of 105 pCO2 37 pH of 7.52 patient has been off propofol for the last 24 hours, still receiving heparin, she is on vasopressin at 0.02, and on norepinephrine at 0.01 mcg/kg/min. Antibiotics hicks, patient remains on Merrem and Eraxis. Patient is arousable, opens her eyes, extremely weak, however she is able to squeeze hands only. Continues to have leukocytosis with WBC count of 16.1 hemoglobin is 8.6, basic metabolic profile is normal. Nutrition hicks, patient remains on vital HP at 53/53 cc/h. Plan today on this patient is to continue patient off any sedation, and hopefully give the patient a trial of pressure support and CPAP, I do not believe the patient is ready to be extubated, but will start at least at times of weaning trials with pressure support mode of mechanical ventilation Patient was evaluated today on 12/13/2023, remains in the ICU, intubated and mechanically ventilated, patient is on assist-control rate of 24 tidal volume 400 FiO2 45% and PEEP of 6. ABG was done this morning. Overall the patient has not shown any significant change in the last few days, remains off sedation, pat ient is arousable, follows simple instructions like squeezing hands and wiggling toes. Hence I plan to give the patient today a trial of pressure support of 12 and CPAP, patient is still requiring a tiny bit of norepinephrine at 0.01 mcg/kg/min, patient remains on vital HP at 53 cc/h, and on heparin drip. Cardiac hicks, patient is on Merrem. Patient looks edematous and swollen, I recommended Lasix 40 mg IV push x 1 today chest x-ray is showing small left pleural effusion and atelectasis.WBC count is 15.1 hemoglobin 8.6. Basic metabolic profile is normal. BUN and creatinine are normal. Patient presented today on 12/14/2023, patient remains in the ICU, remains intubated and mechanically ventilated, on assist-control rate of 24 tidal volume 400 FiO2 35% and PEEP of 6. ABG not done today. Patient remains on antibiotics in the form of Eraxis and Merrem.Patient had Romelia and bronchoalveolar lavage, and she had Klebsiella pneumonia in her urine chest x-ray continues to show some minimal left basilar atelectasis. WBC count is 13.5 hemoglobin is 8.8, PTT is 44 basic metabolic profile is normal renal profile is normal, patient is not requiring any pressors anymore. Continues to improve with intermittent Lasix and should be given more Lasix today. Patient went on pressure support and CPAP almost 8 hours yesterday, she was transitioned to assist-control mode of mechanical ventilation overnight, and this morning early this morning, she was placed back on pressure support and CPAP. Hence the patient will be extubated to BiPAP, and we will continue to monitor the patient in the ICU. Although patient's CODE STATUS has been changed to no code, and not to reintubate if she fails extubation patient was reevaluated today on 12/15/2023, remains in the ICU, patient has been on BiPAP all the day yesterday, however at night she was placed on nasal cannula, apparently the patient kept taking her BiPAP off, and the decision was made by the nurses to place on nasal cannula, she tolerated nasal cannula overnight quite well, however this morning her chest x-ray showed complete wi dening of the left lung. Patient developed mucous plugging again involving the left mainstem bronchus and the left lung,, this required bronchoscopy done at bedside with IV conscious sedation, and I was able to remove all the mucous plugs from the left lung, and follow-up chest x-ray postoperatively showed complete reexpansion of the left lung. Meantime the patient remains on Lasix 40 mg IV push daily and I have been ordering that on a daily basis, patient will receive Ativan on BiPAP to keep her wearing the BiPAP overnight, presently her BiPAP is 16/6/50%. IV fluids at KVO, she is on vital HP at 40 cc/h which will be restarted. Labs today show WBC count of 11 hemoglobin 8.6 hematocrit 27.8 basic metabolic profile is normal renal profile is normal. Patient remains on amiodarone, Eraxis, heparin, Ativan 0.5 mg every 4 hours as needed while she is on BiPAP, she is also on Merrem, pantoprazole 40 mg IV push daily, patient has been off norepinephrine since last night CBC showed WC of 11 hemoglobin 8.6 PTT is 36.7 basic metabolic profile is normal BUN is 28 creatinine 0.44 The patient is seen today December 16, 2023 in follow-up in the intensive care unit. She is currently sitting up in bed. Awake. Currently on BiPAP 12/6 and 40% FiO2. She remains on a heparin drip. Normal saline it keep mean open. Chest x-ray continues to show worsening aeration and volume loss in the left lower lung. She is status post 2 units of packed red blood cells this admission. Current hemoglobin 7.9. Platelets 338. White count 10.7. Sodium 139. Potassium 3.7. Bicarb 35. BUN 29. Creatinine 0.49. Glucose 109. She continues on bronchodilators. Eraxis and meropenem. She is receiving chest physiotherapy in an attempt to keep the left lung open. She did undergo bedside bronchoscopy yesterday with improved aeration however within 24 hours there is new left lower lobe collapse. She is not to be reintubated and remains a DO NOT RESUSCITATE CODE STATUS. The patient is seen today December 17, 2023 in follow-up in the intensive care unit. She is currently resting in bed. She remains on the BiPAP 12/6 and 40% FiO2. Today's chest x-ray shows recurrent complete whiteout of the left lung. Bronchoalveolar wash was positive for Romelia only. White count 10.0. Hemoglobin 8.1. Platelets 373. Sodium 139. Potassium 3.6. Bicarb 32. BUN 28. Creatinine 0.51. Glucose 113. She is continued on DuoNebs, antibiotics in the form of Merrem. Continued on Eraxis. She is on a heparin drip. Continued on oral amiodarone. The patient is seen today December 18, 2023 in follow-up in the intensive care unit. She is sitting up in bed. Awake and alert in no acute distress. She remains on a heparin drip. She remains on normal saline at KVO. She is currently on oxygen at 5 L/min per nasal cannula with O2 saturations in the upper 90s. She is afebrile. Hemodynamically stable. Chest x-ray continues to show ongoing complete whiteout with volume loss of the left hemithorax. She has decided not to wear the BiPAP, not to be reintubated, no bronchoscopy procedures. She is continued on Eraxis and meropenem. Remains on bronchodilators. The patient is seen today December 19, 2023 in follow-up in the intensive care unit. She is currently sitting up in bed. Awake and alert in no acute distress. She is maintaining O2 saturations in the 90s on 4 L/min per nasal cannula. She has normal saline at 20 MLS per hour. She is currently in sinus rhythm. She is continued on amiodarone and anticoagulated with Eliquis. Remains on IV diuretics. Remains on Eraxis and meropenem. She is status post 2 units of packed red blood cells this admission. Current hemoglobin 8.3. Platelets 472. White count 8.1. Sodium 138. Potassium 4.0. Bicarb 30. BUN 21. Creatinine 0.44. Glucose 84. The patient is seen today December 20, 2023 in follow-up on the regular medical floor. She was transferred out of the ICU yesterday. She is currently sitting up in bed. Awake and alert in no acute distress. She is currently maintaining good O2 saturations in the mid 90s on 4 L/min per nasal cannula. She is afebrile. Hemodynamically stable. She is status post 2 units of packed red blood cells this admission. Current hemoglobin 7.3. Platelets 522. White count 7.6. Sodium 139. Potassium 3.9. Bicarb 33. BUN 20. Creatinine 0.71. She is continued on Unasyn, Eraxis. Remains on IV diuretics. Currently net - 3.5 L balance. Bronchial wash cultures revealed Romelia only. Objective - Vital Signs Vital signs: Vital Signs Temp 97.7 F 12/20/23 07:40 Pulse 75 12/20/23 07:40 Resp 18 12/20/23 07:40 BP 96/56 12/20/23 07:40 Pulse Ox 95 12/20/23 07:40 FiO2 40 12/17/23 11:28 Intake & Output 12/19/23 12/20/23 12/20/23 18:59 06:59 18:59 Intake Total 226.6 Output Total 3175 600 Balance -2948.4 -600 Weight 84.5 kg Intake: IV 226.6 0.9 160 Meropenem 1 gm In Sodium 66.6 Chloride 0.9% 100 ml @ 33 .3 mls/hr IVPB Q8HR [facility] Rx#:[id number] Output: Urine 2375 600 Stool 800 Other: Voiding Method Indwelling Catheter Indwelling Catheter Indwelling Catheter ABP, PAP, CO, CI - Last Documented Arterial Blood Pressure 95/53 - Exam GENERAL EXAM: Alert, 73-year-old female, resting comfortably in bed, on 4 L nasal cannula, in no apparent distress. HEAD: Normocephalic. EYES: Normal reaction of pupils, equal size. NOSE: Clear with pink turbinates. THROAT: No erythema or exudates. NECK: No masses, no JVD. CHEST: No chest wall deformity. LUNGS: Equal air entry with crackles, diminished in the left lung base. CVS: S1 and S2 normal with no audible murmur, irregular rhythm. ABDOMEN: No hepatosplenomegaly, normal bowel sounds, no guarding or rigidity. SPINE: No scoliosis or deformity SKIN: No rashes CENTRAL NERVOUS SYSTEM: No focal deficits, tone is normal in all 4 extremities. EXTREMITIES: Right [id number] amputation. Significant swelling of the left lower extremity. Peripheral pulses are intact. - Labs CBC & Chem 7: 12/20/23 05:52 12/20/23 05:52 Labs: Abnormal Lab Results - Last 24 Hours (Table) 12/20/23 12/20/23 Range/Units 05:52 05:52 RBC 2.83 L (4.10-5.20) X 10*6/uL Hgb 7.3 L (12.0-15.0) g/dL Hct 24.5 L (37.2-46.3) % MCH 25.8 L (27.0-32.0) pg MCHC 29.8 L (32.0-37.0) g/dL RDW 26.5 H (11.5-14.5) % Plt Count 522 H (140-440) X 10*3/uL Eosinophils # 0.78 H (0.04-0.35) X 10*3/uL Carbon Dioxide 33 H (22-30) mmol/L BUN 20 H (7-17) mg/dL Calcium 7.8 L (8.4-10.2) mg/dL Microbiology - Last 24 Hours (Table) 12/10/23 07:20 Acid Fast Bacilli Smear - Preliminary Bronchoalviolar Lavage - Left Acid Fast Bacilli Culture - Preliminary Assessment and Plan Assessment: Status post exploratory laparotomy, colectomy and diverting colostomy and debridement of cutaneous fistula December 06, 2023 Abdominal sepsis and septic shock, recovered New onset atrial fibrillation with RVR, currently on Eliquis Klebsiella pneumonia urinary tract infection Leukocytosis secondary to above, improving. Recurrent left lung collapse secondary to mucous plugging, status post bronchoscopy and lavage of left lung, done 12/10/2023, also done on 12/15/2023 Acute hypoxic and hypercapnic respiratory failure secondary to above None anion gap metabolic acidosis, resolved, bicarb drip was discontinued today History of previous right above-knee amputation Left buttocks unstageable pressure ulcer Hydropic gallbladder with multiple gallstones Adrenal nodules Strongly suspect critical illness polyneuropathy Plan: The patient was seen and evaluated Labs and medications reviewed Currently on 4 L nasal cannula She declines any further interventions Currently declines hospice Requesting for subacute rehabilitation at discharge I have personally seen and examined the patient, performed the documentation and the assessment and plan as written. Number of minutes spent on the visit: 10.
--- NOTE | 2023-12-20 12:49 | P.PN ---
Subjective Progress Note Date: 12/20/23 Principal diagnosis: Reason for follow-up is complicated diverticulitis with colocutaneous fistula Patient is a 73-year-old female who was brought into the ER at [facility] for the patient complaining of generalized weakness patient noticed to have sacral pressure ulcer and also complicate diverticulitis with a fistula to the left lower abdominal wall.Patient was taken to the OR on 12/06/2023 and this patient was status post exploratory laparotomy with sigmoid colectomy takedown of the colocutaneous fistula left inguinal hernia repair and peritoneal lavage. On today's evaluation that is 12/20/2023,the patient denies any fever or any chills, patient is breathing comfortably on 4 L nasal cannula oxygen, the patient denies chest pain shortness of breath and no significant cough, patient denies abdominal pain, no nausea vomiting or diarrhea. Patient white count 7.60, creatinine 0.71 Objective - Vital Signs Vital signs: Vital Signs Temp 97.7 F 12/20/23 07:40 Pulse 75 12/20/23 07:40 Resp 18 12/20/23 07:40 BP 96/56 12/20/23 07:40 Pulse Ox 95 12/20/23 07:40 FiO2 40 12/17/23 11:28 Intake & Output 12/19/23 12/20/23 12/20/23 18:59 06:59 18:59 Intake Total 226.6 Output Total 3175 600 2275 Balance -2948.4 -600 -2275 Weight 84.5 kg Intake: IV 226.6 0.9 160 Meropenem 1 gm In Sodium 66.6 Chloride 0.9% 100 ml @ 33 .3 mls/hr IVPB Q8HR [facility] Rx#:[id number] Output: Urine 2375 600 2000 Stool 800 275 Other: Voiding Method Indwelling Catheter Indwelling Catheter Indwelling Catheter ABP, PAP, CO, CI - Last Documented Arterial Blood Pressure 95/53 - Exam GENERAL DESCRIPTION: An elderly female lying in bed in no distress RESPIRATORY SYSTEM: Unlabored breathing , decreased breath sounds at bases HEART: S1 S2 regular rate and rhythm , ABDOMEN: Soft , no tenderness EXTREMITIES: No edema feet - Labs CBC & Chem 7: 12/20/23 05:52 12/20/23 05:52 Labs: Abnormal Lab Results - Last 24 Hours (Table) 12/20/23 12/20/23 Range/Units 05:52 05:52 RBC 2.83 L (4.10-5.20) X 10*6/uL Hgb 7.3 L (12.0-15.0) g/dL Hct 24.5 L (37.2-46.3) % MCH 25.8 L (27.0-32.0) pg MCHC 29.8 L (32.0-37.0) g/dL RDW 26.5 H (11.5-14.5) % Plt Count 522 H (140-440) X 10*3/uL Eosinophils # 0.78 H (0.04-0.35) X 10*3/uL Carbon Dioxide 33 H (22-30) mmol/L BUN 20 H (7-17) mg/dL Calcium 7.8 L (8.4-10.2) mg/dL Microbiology - Last 24 Hours (Table) 12/10/23 07:20 Acid Fast Bacilli Smear - Preliminary Bronchoalviolar Lavage - Left Acid Fast Bacilli Culture - Preliminary Assessment and Plan (1) Diverticulitis of intestine, part unspecified, without perforation or abscess without bleeding Current Visit: Yes Status: Acute Code(s): K57.92 - DVTRCLI OF INTEST, PART UNSP, W/O PERF OR ABSCESS W/O BLEED SNOMED Code(s): 017016534 (2) Leukocytosis Current Visit: Yes Status: Acute Code(s): D72.829 - ELEVATED WHITE BLOOD CELL COUNT, UNSPECIFIED SNOMED Code(s): 752092196 (3) Sepsis Current Visit: Yes Status: Acute Code(s): A41.9 - SEPSIS, UNSPECIFIED ORGANISM SNOMED Code(s): 45157099 (4) Gram-negative bacteremia Current Visit: Yes Status: Acute Code(s): R78.81 - BACTEREMIA SNOMED Code(s): 702927912459 Plan: 1patient with complicated diverticulitis with evidence of fistulous communication to the skin left lower quadrant area and concern for possible extension to the bladder, will need to cover for the polymicrobial jessie associated with such condition including enteric gram-negative both aerobes and anaerobes 2-patient also have a sacral pressure ulcer but no significant surrounding cellulitis, wound care has been consulted continue local wound care per them 3Fusobacterium 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 that is beta-lactamase negative repeat blood culture has been negative so far 3-patient is status post extensive surgery including 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 5patient sputum culture grew Romelia bronchoscopy culture also grew Romelia as well as abdominal culture growing Romelia albicans 6-patient is afebrile white normalized to continue with Unasyn and Eraxis, monitor clinical course closely Dictation was produced using [employer] dictation software. please excuse any grammatical, word or spelling errors. Time with Patient: Less than 30
--- NOTE | 2023-12-20 12:52 | P.PN ---
Subjective HISTORY OF PRESENT ILLNESS: The patient is a 73-year-old female who presented for an exploratory laparotomy sigmoid colectomy, diverting colostomy who had postoperative hypotension. She had episodes of atrial fibrillation. She is extubated on BiPAP, feeling better. Her blood pressure stable. Continues to be in sinus mechanism. Her urinary output is good. She denies any dizziness or palpitations. She underwent bronchoscopy for left lung collapse. She had no further episodes of atrial fibrillation. Her echocardiogram showed ejection fraction of 50%. She had mild to moderate mitral regurgitation. December 16: The patient continues to be on the BiPAP. She is hemodynamically stable. Continues to be on IV heparin. Her chest x-ray shows total collapse of the left lung. She has no evidence of atrial fibrillation. Her urine output is stable. There is no evidence of malignant arrhythmia. December 17: The patient is feeling well, she denies any chest discomfort or dizziness. According to the nursing staff she has not been using her BiPAP. She continues to have a white out of the left lung. She has declined bronchoscopy. She continues to be in sinus mechanism. Her blood pressure has been stable. Her urine output is stable. Her CODE STATUS has been discussed by the intensive care team with her and her family. December 18: The patient is awake and alert, tired. She is on nasal cannula, her oxygenation is stable. She denies any chest discomfort, dizziness or palpitations. She had an episode of brief nonsustained VT otherwise continues to be in sinus mechanism. Hemodynamically she is stable. Her urine output is stable. The patient is DNR and does not want to use the BiPAP or having any further bronchoscopy. She had complete opacification of the left lung. 12/20/2023 Patient examined this morning at the bedside. She has been transferred to . Patient currently denies chest pain or pressure. She denies shortness of breath. She remains on 4 L nasal cannula with oxygen saturations greater than 92%. She continues to have significant left lower extremity swelling. She remains on IV diuretics. Kidney function remained stable this morning with a creatinine of 0.71. PHYSICAL EXAM: VITAL SIGNS: Reviewed. GENERAL: Well-developed in no acute distress. NECK: Supple. No JVD or thyromegaly LUNGS: Respirations even and unlabored. Lungs diminished, worse on the left. HEART: Regular rate and rhythm. S1 and S2 heard. Systolic murmur noted. EXTREMITIES: Normal range of motion. No clubbing or cyanosis. Peripheral pulses intact. 3-4+ left lower extremity edema. Right AKA. ASSESSMENT: 1. Status post abdominal surgery and colostomy 2. Paroxysmal atrial fibrillation, maintaining sinus mechanism 3. Left lung collapse status post bronchoscopy x 2 in the past 4. Status post right AKA 5. Fluid overload PLAN: Continue current cardiac medications Continue IV diuretics: Lasix 40 mg daily Daily weights, accurate intake and output, and monitoring of kidney function Further recommendations pending patient course Nurse practitioner note has been reviewed by physician. Signing provider agrees with the documented findings, assessment, and plan of care documented by GARBAGE DEPOT WORKER as a scribe. Objective - Vital Signs Vital signs: Vital Signs Temp 97.7 F 12/20/23 07:40 Pulse 75 12/20/23 07:40 Resp 18 12/20/23 07:40 BP 96/56 12/20/23 07:40 Pulse Ox 95 12/20/23 07:40 FiO2 40 12/17/23 11:28 Intake & Output 12/19/23 12/20/23 12/20/23 18:59 06:59 18:59 Intake Total 226.6 Output Total 3175 600 2275 Balance -2948.4 -600 -2275 Weight 84.5 kg Intake: IV 226.6 0.9 160 Meropenem 1 gm In Sodium 66.6 Chloride 0.9% 100 ml @ 33 .3 mls/hr IVPB Q8HR [facility] Rx#:[id number] Output: Urine 2375 600 2000 Stool 800 275 Other: Voiding Method Indwelling Catheter Indwelling Catheter Indwelling Catheter ABP, PAP, CO, CI - Last Documented Arterial Blood Pressure 95/53 - Labs CBC & Chem 7: 12/20/23 05:52 12/20/23 05:52 Labs: Abnormal Lab Results - Last 24 Hours (Table) 12/20/23 12/20/23 Range/Units 05:52 05:52 RBC 2.83 L (4.10-5.20) X 10*6/uL Hgb 7.3 L (12.0-15.0) g/dL Hct 24.5 L (37.2-46.3) % MCH 25.8 L (27.0-32.0) pg MCHC 29.8 L (32.0-37.0) g/dL RDW 26.5 H (11.5-14.5) % Plt Count 522 H (140-440) X 10*3/uL Eosinophils # 0.78 H (0.04-0.35) X 10*3/uL Carbon Dioxide 33 H (22-30) mmol/L BUN 20 H (7-17) mg/dL Calcium 7.8 L (8.4-10.2) mg/dL Microbiology - Last 24 Hours (Table) 12/10/23 07:20 Acid Fast Bacilli Smear - Preliminary Bronchoalviolar Lavage - Left Acid Fast Bacilli Culture - Preliminary
--- NOTE | 2023-12-20 13:45 | P.PN ---
Subjective Progress Note Date: 12/20/23 CHIEF COMPLAINT: Perforated diverticular disease with fistulization to the skin HISTORY OF PRESENT ILLNESS: The patient is a [id number]-year-old female status post exploratory laparotomy, Magaña's procedure for colocutaneous fistula and septic shock. Patient transferred out of the ICU yesterday to regular medical floor. Patient reports her pain is controlled. She is tolerating diet. Ostomy is functioning. She has declined hospice at this time. CODE STATUS DNR. Improve on a wound VAC was discontinued yesterday and Optifoam dressing placed to her midline incision. She does have the wound VAC in the left lower quadrant scheduled to be changed today. Afebrile. WBC 7.6 Hgb 7.3 platelets 522 PHYSICAL EXAM: VITAL SIGNS: Reviewed GENERAL: no acute distress. HEENT: No sclera icterus. Extraocular movements grossly intact. Moist buccal mucosa. Head is atraumatic, normocephalic. Hears conversational speech. No nasal drainage. NECK: Supple without lymphadenopathy. CHEST: Non-labored respirations and equal bilateral excursions. CARDIOVASCULAR: Palpable 2+ radial pulses. ABDOMEN: Soft. Nondistended. Midline incision with Optifoam dressing clean dry and intact stoma beefy red. Stool in ostomy bag. Left lower abdomen wound VAC intact. MUSCULOSKELETAL: No clubbing or cyanosis. NEUROLOGIC: No focal or lateralizing signs. Cranial nerves II through XII grossly intact. ASSESSMENT: 1. Septic shock 2. 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 Lack of general medical care 4. Complicated left groin wound, 4 cm 5. Intermesenteric abscess, pelvis 6. Left inguinal hernia 7. Atrial fibrillation with rapid ventricular response 8. Collapsed left lung secondary to mucous plugging with prior bronchoscopy x 2 PLAN: -Continue supportive care -Continue low fiber diet. Patient and family are aware she is high risk for aspiration -Wound VAC to be changed today -Continue pain management -Continue antibiotics and antifungal per ID service -DVT prophylaxis Eliquis -Consult PT OT -Consult social work for ECF placement at discharge -Repeat CBC in a.m. Physician Sewage Disposal Engineer note has been reviewed by physician. Signing provider agrees with the documented findings, assessment, and plan of care. Objective - Vital Signs Vital signs: Vital Signs Temp 97.7 F 12/20/23 07:40 Pulse 75 12/20/23 07:40 Resp 18 12/20/23 07:40 BP 96/56 12/20/23 07:40 Pulse Ox 95 12/20/23 07:40 FiO2 40 12/17/23 11:28 Intake & Output 12/19/23 12/20/23 12/20/23 18:59 06:59 18:59 Intake Total 226.6 Output Total 3175 600 Balance -2948.4 -600 Weight 84.5 kg Intake: IV 226.6 0.9 160 Meropenem 1 gm In Sodium 66.6 Chloride 0.9% 100 ml @ 33 .3 mls/hr IVPB Q8HR [facility] Rx#:[id number] Output: Urine 2375 600 Stool 800 Other: Voiding Method Indwelling Catheter Indwelling Catheter Indwelling Catheter ABP, PAP, CO, CI - Last Documented Arterial Blood Pressure 95/53 - Labs CBC & Chem 7: 12/20/23 05:52 12/20/23 05:52 Labs: Abnormal Lab Results - Last 24 Hours (Table) 12/20/23 12/20/23 Range/Units 05:52 05:52 RBC 2.83 L (4.10-5.20) X 10*6/uL Hgb 7.3 L (12.0-15.0) g/dL Hct 24.5 L (37.2-46.3) % MCH 25.8 L (27.0-32.0) pg MCHC 29.8 L (32.0-37.0) g/dL RDW 26.5 H (11.5-14.5) % Plt Count 522 H (140-440) X 10*3/uL Eosinophils # 0.78 H (0.04-0.35) X 10*3/uL Carbon Dioxide 33 H (22-30) mmol/L BUN 20 H (7-17) mg/dL Calcium 7.8 L (8.4-10.2) mg/dL Microbiology - Last 24 Hours (Table) 12/10/23 07:20 Acid Fast Bacilli Smear - Preliminary Bronchoalviolar Lavage - Left Acid Fast Bacilli Culture - Preliminary
--- NOTE | 2023-12-20 18:25 | P.PN ---
Subjective Progress Note Date: 12/20/23 73 years old female who presents to the emergency room for lower abdominal fistula drainage, associated with generalized weakness. Patient looks awake alert but tired looking, pale. Feels generally weak. N has mild generalized abdominal pain and tenderness. No rebound tenderness. Blood with malodorous left lower abdominal fistula drainage with fecal material coming out. Patient also with right rotation. Patient also with unstageable sacral pressure ulcer. With some evidence of cellulitis. Patient is mildly confused. But no headache or weakness in upper or lower patient was hypotensive with a blood pressure/42, currently slightly better 96/43. Potassium is low 2.9, WBC elevated 23,000, hemoglobin 7.4. Creatinine 0.7. Liver enzymes unremarkable. CT of the abdomen pelvis showing sigmoid diverticulitis and proctitis. 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 Please refer to the report for more details. Patient was ordered received normal saline boluses. Currently on Normosol at 130 mL/h She received 1 dose of Zosyn and started on Flagyl. We are going to add cefepime for gram-negative coverage. Objective - Vital Signs Vital signs: Vital Signs Temp 97.7 F 12/20/23 07:40 Pulse 75 12/20/23 07:40 Resp 18 12/20/23 07:40 BP 96/56 12/20/23 07:40 Pulse Ox 95 12/20/23 07:40 FiO2 40 12/17/23 11:28 Intake & Output 12/19/23 12/20/23 12/20/23 18:59 06:59 18:59 Intake Total 226.6 Output Total 3175 600 2275 Balance -2948.4 -600 -2275 Weight 84.5 kg Intake: IV 226.6 0.9 160 Meropenem 1 gm In Sodium 66.6 Chloride 0.9% 100 ml @ 33 .3 mls/hr IVPB Q8HR [facility] Rx#:[id number] Output: Urine 2375 600 2000 Stool 800 275 Other: Voiding Method Indwelling Catheter Indwelling Catheter Indwelling Catheter ABP, PAP, CO, CI - Last Documented Arterial Blood Pressure 95/53 - Exam -GENERAL: The patient is awake alert and oriented. Bilateral lower extremity HEENT: Pupils are round and equally reacting to light. EOMI. No scleral icterus. No conjunctival pallor. Normocephalic, atraumatic. No pharyngeal erythema. No thyromegaly. CARDIOVASCULAR: S1 and S2 present. No murmurs, rubs, or gallops. PULMONARY: Bibasilar diminished sounds and left basilar coarse sounds., no wheezing. Nonlabored breathing. -ABDOMEN: Soft, nontender, nondistended, normoactive bowel sounds. No palpable organomegaly. Left lower abdominal colostomy bag MUSCULOSKELETAL: No joint swelling or deformity. -EXTREMITIES: No cyanosis, clubbing, bilateral trace pedal edema. Right elbow knee amputation, old NEUROLOGICAL: Gross neurological examination did not reveal any focal deficits. SKIN: No rashes. no petechiae. - Labs CBC & Chem 7: 12/20/23 05:52 12/20/23 05:52 Labs: Abnormal Lab Results - Last 24 Hours (Table) 12/20/23 12/20/23 Range/Units 05:52 05:52 RBC 2.83 L (4.10-5.20) X 10*6/uL Hgb 7.3 L (12.0-15.0) g/dL Hct 24.5 L (37.2-46.3) % MCH 25.8 L (27.0-32.0) pg MCHC 29.8 L (32.0-37.0) g/dL RDW 26.5 H (11.5-14.5) % Plt Count 522 H (140-440) X 10*3/uL Eosinophils # 0.78 H (0.04-0.35) X 10*3/uL Carbon Dioxide 33 H (22-30) mmol/L BUN 20 H (7-17) mg/dL Calcium 7.8 L (8.4-10.2) mg/dL Microbiology - Last 24 Hours (Table) 12/10/23 07:20 Acid Fast Bacilli Smear - Preliminary Bronchoalviolar Lavage - Left Acid Fast Bacilli Culture - Preliminary Assessment and Plan Assessment: Acute sigmoid sigmoid colitis, diverticulitis with proctitis. With multiple entero-cutaneous and entero-vesical fistulas, including to the left lower abdominal wall. Septic shock secondary to above new onset. Improved Acute hypoxic respiratory failure requiring intubation and mechanical ventilation. S/p extubation on 12/24. Patient is currently on BiPAP-->4L via NC Left lung collapse secondary to mucous plugging status post bronchoscopy and lavage of left lung. Done on 12/10/2023 and also on 12/15/2023 Klebsiella urinary tract infection New onset A-fib and RVR Acute kidney injury, Improved no more need for dialysis Acute anemia, unknown baseline, chronic microcytic. S/p units of PRBC transfusion Full-thickness sacral pressure ulcer, left buttock. With no obvious osseous erosions. Metabolic encephalopathy, with possible elements of delirium Bilateral adrenal nodule, recommend follow-up CT in 3 months. Hydropic gallbladder with multiple gallstones Anasarca With severe hypoalbuminemia Suspect critical illness polyneuropathy Patient is currently on BiPAP. Plan: Patient is currently on BiPAP Continue with antibiotic, meropenem-->unasyn and Eraxis ID team on the case. Continue with wound care and wound VAC in place with surgery team following closely Patient is being currently on Lasix 40 mg IV daily. pulmonary/critical care team is on board. Patient is on Eliquis and oral amiodarone for new onset atrial fibrillation with RVR. Heparin drip has been discontinued. Monitor and follow-up blood culture repeat cultures negative. DVT prophylaxis: Patient is on IV heparin, SCD GI prophylaxis: Protonix Prognosis guarded, CODE STATUS DNR/DNI Prognosis is poor at this time. Patient has declined BiPAP, bronchoscopy, reintubation.
[2023-12-21 09:40] LABS: HCT 25.8 % (37.2-46.3); HGB 7.7 g/dL (12.0-15.0); MCH 25.8 pg (27.0-32.0); MCHC 29.8 g/dL (32.0-37.0); MCV 86.3 FL (80.0-97.0); Mean Platelet Volume 10.1 FL (9.5-12.2); NRBC Per 100 WBC 0 X 10*3/uL (0.00-0.01); Platelet Count 601 X 10*3/uL (140-440); RBC 2.99 X 10*6/uL (4.10-5.20)
[2023-12-21 10:08] LABS: Blood Urea Nitrogen 17.6 mg/dL (9.0-27.0); Calcium 7.8 mg/dL (8.7-10.3); Carbon Dioxide 32.4 mmol/L (21.6-31.8); Chloride 106 mmol/L (96-109); Glucose 101 mg/dL (70-110); Potassium 3.6 mmol/L (3.5-5.5); Sodium 145 mmol/L (135-145)
--- NOTE | 2023-12-21 11:56 | P.PN ---
Subjective Progress Note Date: 12/21/23 This is a 74-year-old female patient who was brought into the intensive care unit after an extensive abdominal surgery. The patient underwent exploratory laparotomy and sigmoid colectomy and diverging colostomy. The patient was emergently taken to the operating room this afternoon as the patient was bec oming hypotensive and she had developed persistent leukocytosis intermittent fevers consistent with sepsis and septic shock. The patient was also becoming hypotensive despite being resuscitated with IV fluids and the patient preoperatively received a total of 3 L of IV fluids. An emergent surgical exploration was indicated. 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 At this point in time, the patient is sedated and the patient is currently on propofol. She is intubated on mechanical ventilator and she is on assist- control mode at a rate of 12, tidal volume of 400, FiO2 of 100% and a PEEP of 5. Chest x-ray shows a right IJ triple-lumen catheter. ET tube is in good loca tion. No airspace disease or consolidation. The blood gases showed a pH of 7.22 with a pCO2 of 51 and pO2 of 255. The patient is currently on no pressors and urine output is quite diminished in the order of 10 to 20 cc since arrival from the operating room. The patient is on IV cefepime and Flagyl. Received a total of 2 unit PRBC intraop 12/07/2023, I am seeing the patient for a follow-up in the intensive care unit. The patient is currently postop day #1. The patient remains intubated on the mechanical ventilator. This morning, the patient is on propofol which is running at 30 mcg/kg/min. She was resuscitated with IV fluids. She was maintained on normal saline at rate of 150 cc an hour and norepinephrine was also added overnight and currently norepinephrine is running at 0.07 mcg/kg/min. Her urine output is in the order of 10 to 20 cc an hour. Overall fluid balance over the past 24 hours has been +3.6 L. The patient remains on a combination of cefepime and Flagyl. The blood work from today shows a WBC count of 37.4, hemoglobin 10.7 and platelet count of 499. BUN is at 15 with a creatinine of 0.8. Sodium is at 143 from yesterday. Repeat electrolytes are still pending for now. Meanwhile, the patient remains intubated on mechanical ventilator. This morning, she is on assist-control mode at rate of 24, tidal volume of 400, FiO2 is at 55% with a PEEP of 5. The blood gas shows a pH of 7.38 with a pCO2 of 31 and pO2 of 119. Review of the chest x-ray from this morning shows adequate positioning of the orotracheal tube. This may need to be pushed in by 1 cm. The patient has a small atelectasis/left-sided pleural effusion. Otherwise, the right lung is essentially clear at this point in time. Antibiotic coverage includes a combination of cefepime and Flagyl. The patient will need Dilaudid for pain control. She is on heparin subcu for DVT prophylaxis. She is resting comfortably in bed. No other significant events overnight. Currently she is afebrile. The wound VAC is in place. Colostomy site is not fully functional at this point in time. Abdomen is soft. 12/08/2023, the patient remains intubated on mechanical ventilator and she is in the intensive care unit postop day #2. The patient remains on a mechanical ventilator. She is currently on assist-control mode with rate of 24, tidal volume of 400, FiO2 of 50% with a PEEP of 5. The blood gases from this morning showed a pH of 7.28 with a pCO2 of 32 and pO2 of 105. The chest x-ray was r eviewed and shows evidence of left basilar effusion/atelectasis. Orotracheal tube is in good location. The patient is triple-lumen catheter in her right IJ. Unfortunately, at around 3 AM this morning, the patient went into A-fib RVR and the patient became profoundly hypotensive. The patient progressively required higher dose of norepinephrine and currently norepinephrine is running at 0.2 mcg/kg/min and her mean arterial pressure is around 64. At the same time, the patient received treatment for her new onset atrial fibrillation. She was given an amiodarone bolus and currently she is on amiodarone at 0.5 mg/min. Based on her underlying hypotension. The patient was thought to hemodynamically unstable with A-fib RVR. The patient received cardioversion on 3 separate occasions using 120 J, 150 J and 200 J. Those attempts failed and the patient remained in atrial fibrillation. Her current heart rate is running at around 150 beats a minute, irregular. Urine output has dropped and the patient is producing only 10 cc an hour. At the same time, the patient's white cell count is up to 33.3 with a hemoglobin 12.1 and platelet count of 412. NG tube is in place. Output is minimal. Abdomen remains soft. The wound VAC is still in place. There is some liquidy stool material in the colostomy bag. No abdominal distention. The patient has been developing progressive edema and upper extremities in the left lower extremity. 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 Rest of the electrolytes show a sodium level of 143, serum bicarb is down to 12, anion gap is at 6, BUN is at 17 with a creatinine of 0.8. Magnesium level is at 1.9 with a calcium level of 7.9. The patient remains on IV cefepime and Flagyl. Urine culture from 12/04/2023 was positive for Klebsiella pneumoniae. She is currently afebrile. Propofol is running at 35 mcg/kg/min. The patient has been adequately sedated for now. Patient was reevaluated today on 12/09/2023, remains intubated and mechanically ventilated. On assist-control rate of 24 tidal volume 400 FiO2 50% and PEEP of 5. ABG showed a pO2 of 128 pCO2 35 pH 7.39. His FiO2 was cut down to 40% instead of 50%. Patient remained on multiple drips including norepinephrine, 0.04 mcg/kg/min, propofol at 35 mcg/kg/min, vasopressin at 0.03 units/min, D5W with 3 A of bicarb running at 150 cc/h. Patient is receiving vancomycin and Merrem. Patient has a left IJ triple-lumen catheter and left radial arterial line. Urine is positive Klebsiella, blood cultures were noted to be also positive for gram-negative bacilli. Most likely Klebsiella. Patient is on Merrem and she is on vancomycin patient is now postoperative day #3. Patient received 2 units of packed RBCs, since admission, hemoglobin now is 9.8, hemoglobin went as low as 7.4 on 12/04 labs today showed PTT of 57.4, basic metabolic profile is normal except for low potassium of 3.0 bicarb is 16, renal profile is normal WBC count is 28.5 hemoglobin is 9.8 urine cultures are positive for Klebsiella pneumoniae. Nutrition hicks the patient is receiving vital HP 10 cc/h. Patient remains in atrial fibrillation, rate seems to be reasonably controlled Patient was reevaluated today on 12/10/2023, remains in the ICU, intubated and mechanically ventilated. Earlier this morning I was made aware of the patient's chest x-ray showing complete collapse of the left lung, and tracheal deviation to the ipsilateral side. This was clearly consistent with mucous plugging involving the left mainstem bronchus. Hence the patient underwent bronchoscopy, suctioning of the mucous plugs, and bronchoalveolar lavage of the left upper lobe lingula and left lower lobe. Please refer to the full operative report regarding this procedure. Patient remains intubated, mechanically ventilated, she is on assist-control rate of 24 tidal volume 400 FiO2 is now 50% PEEP of 10 and I cut it down to 8. Patient remains on multiple drips including norepinephrine at 0.06 mcg/kg/min vasopressin at 0.04 units/h, bicarb drip which I have discontinued today, Cardizem drip at 5 mg/h. Patient is also on heparin drip, propofol at 15 mcg/kg/min. Antibiotics hicks remains on Merrem for Kle bsiella infection involving urine and blood. Chest x-ray as noted above, patient had complete opacification of the left lung, however after bronchoscopy and BAL significant improvement was noted and aeration of left lung significantly improved. ABG this morning on 40% showed a pO2 of 55 pCO2 48 and pH of 7.39 BBC count is 19.7, improving hemoglobin is 9.1. Platelets 253. ASIC metabolic profile is normal and renal profile is normal Patient was placed today on 12/11/2023, remains in the ICU, intubated and mechanically ventilated, sedated. On assist-control rate of 24 tidal volume 400 FiO2 50% and PEEP of 8 patient is requiring hemodynamic support with vasopressin 0.04 units, norepinephrine at 0.03 mcg/kg/min, patient is nutritionally supported with vital HP at 53 mL/h. ABG showed a pO2 of 96 pCO2 39 pH of 7.48. Patient remains on vancomycin and Merrem, urine output is about 40 cc/h hence I recommended Lasix to be given today 40 mg IV push x 1. Patient has a functioning ostomy, and she continues to have a wound VAC in place. CODE STATUS has been changed to DNR, yesterday, the patient underwent a bronchoscopy for complete opacification of the left lung, cultures from the BAL are pending, on today's chest x-ray there is minimal atelectasis in the left midlung, left lung remains relatively fully expanded Patient was reevaluated today on 12/12/2023, remains in the ICU intubated and mechanically ventilated. Patient is still requiring pressors, still on assist- control rate of 24 tidal volume 400 FiO2 45% PEEP is 8 and I cut it down to 6 today. ABG showed a pO2 of 105 pCO2 37 pH of 7.52 patient has been off propofol for the last 24 hours, still receiving heparin, she is on vasopressin at 0.02, and on norepinephrine at 0.01 mcg/kg/min. Antibiotics hicks, patient remains on Merrem and Eraxis. Patient is arousable, opens her eyes, extremely weak, however she is able to squeeze hands only. Continues to have leukocytosis with WBC count of 16.1 hemoglobin is 8.6, basic metabolic profile is normal. Nutrition hicks, patient remains on vital HP at 53/53 cc/h. Plan today on this patient is to continue patient off any sedation, and hopefully give the patient a trial of pressure support and CPAP, I do not believe the patient is ready to be extubated, but will start at least at times of weaning trials with pressure support mode of mechanical ventilation Patient was evaluated today on 12/13/2023, remains in the ICU, intubated and mechanically ventilated, patient is on assist-control rate of 24 tidal volume 400 FiO2 45% and PEEP of 6. ABG was done this morning. Overall the patient has not shown any significant change in the last few days, remains off sedation, pat ient is arousable, follows simple instructions like squeezing hands and wiggling toes. Hence I plan to give the patient today a trial of pressure support of 12 and CPAP, patient is still requiring a tiny bit of norepinephrine at 0.01 mcg/kg/min, patient remains on vital HP at 53 cc/h, and on heparin drip. Cardiac hicks, patient is on Merrem. Patient looks edematous and swollen, I recommended Lasix 40 mg IV push x 1 today chest x-ray is showing small left pleural effusion and atelectasis.WBC count is 15.1 hemoglobin 8.6. Basic metabolic profile is normal. BUN and creatinine are normal. Patient presented today on 12/14/2023, patient remains in the ICU, remains intubated and mechanically ventilated, on assist-control rate of 24 tidal volume 400 FiO2 35% and PEEP of 6. ABG not done today. Patient remains on antibiotics in the form of Eraxis and Merrem.Patient had Romelia and bronchoalveolar lavage, and she had Klebsiella pneumonia in her urine chest x-ray continues to show some minimal left basilar atelectasis. WBC count is 13.5 hemoglobin is 8.8, PTT is 44 basic metabolic profile is normal renal profile is normal, patient is not requiring any pressors anymore. Continues to improve with intermittent Lasix and should be given more Lasix today. Patient went on pressure support and CPAP almost 8 hours yesterday, she was transitioned to assist-control mode of mechanical ventilation overnight, and this morning early this morning, she was placed back on pressure support and CPAP. Hence the patient will be extubated to BiPAP, and we will continue to monitor the patient in the ICU. Although patient's CODE STATUS has been changed to no code, and not to reintubate if she fails extubation patient was reevaluated today on 12/15/2023, remains in the ICU, patient has been on BiPAP all the day yesterday, however at night she was placed on nasal cannula, apparently the patient kept taking her BiPAP off, and the decision was made by the nurses to place on nasal cannula, she tolerated nasal cannula overnight quite well, however this morning her chest x-ray showed complete wi dening of the left lung. Patient developed mucous plugging again involving the left mainstem bronchus and the left lung,, this required bronchoscopy done at bedside with IV conscious sedation, and I was able to remove all the mucous plugs from the left lung, and follow-up chest x-ray postoperatively showed complete reexpansion of the left lung. Meantime the patient remains on Lasix 40 mg IV push daily and I have been ordering that on a daily basis, patient will receive Ativan on BiPAP to keep her wearing the BiPAP overnight, presently her BiPAP is 16/6/50%. IV fluids at KVO, she is on vital HP at 40 cc/h which will be restarted. Labs today show WBC count of 11 hemoglobin 8.6 hematocrit 27.8 basic metabolic profile is normal renal profile is normal. Patient remains on amiodarone, Eraxis, heparin, Ativan 0.5 mg every 4 hours as needed while she is on BiPAP, she is also on Merrem, pantoprazole 40 mg IV push daily, patient has been off norepinephrine since last night CBC showed WC of 11 hemoglobin 8.6 PTT is 36.7 basic metabolic profile is normal BUN is 28 creatinine 0.44 The patient is seen today December 16, 2023 in follow-up in the intensive care unit. She is currently sitting up in bed. Awake. Currently on BiPAP 12/6 and 40% FiO2. She remains on a heparin drip. Normal saline it keep mean open. Chest x-ray continues to show worsening aeration and volume loss in the left lower lung. She is status post 2 units of packed red blood cells this admission. Current hemoglobin 7.9. Platelets 338. White count 10.7. Sodium 139. Potassium 3.7. Bicarb 35. BUN 29. Creatinine 0.49. Glucose 109. She continues on bronchodilators. Eraxis and meropenem. She is receiving chest physiotherapy in an attempt to keep the left lung open. She did undergo bedside bronchoscopy yesterday with improved aeration however within 24 hours there is new left lower lobe collapse. She is not to be reintubated and remains a DO NOT RESUSCITATE CODE STATUS. The patient is seen today December 17, 2023 in follow-up in the intensive care unit. She is currently resting in bed. She remains on the BiPAP 12/6 and 40% FiO2. Today's chest x-ray shows recurrent complete whiteout of the left lung. Bronchoalveolar wash was positive for Romelia only. White count 10.0. Hemoglobin 8.1. Platelets 373. Sodium 139. Potassium 3.6. Bicarb 32. BUN 28. Creatinine 0.51. Glucose 113. She is continued on DuoNebs, antibiotics in the form of Merrem. Continued on Eraxis. She is on a heparin drip. Continued on oral amiodarone. The patient is seen today December 18, 2023 in follow-up in the intensive care unit. She is sitting up in bed. Awake and alert in no acute distress. She remains on a heparin drip. She remains on normal saline at KVO. She is currently on oxygen at 5 L/min per nasal cannula with O2 saturations in the upper 90s. She is afebrile. Hemodynamically stable. Chest x-ray continues to show ongoing complete whiteout with volume loss of the left hemithorax. She has decided not to wear the BiPAP, not to be reintubated, no bronchoscopy procedures. She is continued on Eraxis and meropenem. Remains on bronchodilators. The patient is seen today December 19, 2023 in follow-up in the intensive care unit. She is currently sitting up in bed. Awake and alert in no acute distress. She is maintaining O2 saturations in the 90s on 4 L/min per nasal cannula. She has normal saline at 20 MLS per hour. She is currently in sinus rhythm. She is continued on amiodarone and anticoagulated with Eliquis. Remains on IV diuretics. Remains on Eraxis and meropenem. She is status post 2 units of packed red blood cells this admission. Current hemoglobin 8.3. Platelets 472. White count 8.1. Sodium 138. Potassium 4.0. Bicarb 30. BUN 21. Creatinine 0.44. Glucose 84. The patient is seen today December 20, 2023 in follow-up on the regular medical floor. She was transferred out of the ICU yesterday. She is currently sitting up in bed. Awake and alert in no acute distress. She is currently maintaining good O2 saturations in the mid 90s on 4 L/min per nasal cannula. She is afebrile. Hemodynamically stable. She is status post 2 units of packed red blood cells this admission. Current hemoglobin 7.3. Platelets 522. White count 7.6. Sodium 139. Potassium 3.9. Bicarb 33. BUN 20. Creatinine 0.71. She is continued on Unasyn, Eraxis. Remains on IV diuretics. Currently net - 3.5 L balance. Bronchial wash cultures revealed Romelia only. The patient is seen today December 21, 2023 in follow-up on the regular medical floor. She is currently sitting up in bed. Awake and alert in no acute distress. She is maintaining good O2 saturations in the mid 90s on 4 L/min per nasal cannula. She is afebrile. Hemodynamically stable. She has normal sta yomaira at KVO. She continues on Unasyn and Eraxis. She is diminished in the left lung. White count 7.9. Hemoglobin 7.7. Platelets 601. Sodium 145. Potassium 3.6. Bicarb 32. BUN 18. Creatinine 0.5. Glucose 101. She remains on IV diuretics. She is currently in a -3.6 L balance. Objective - Vital Signs Vital signs: Vital Signs Temp 98.7 F 12/21/23 07:36 Pulse 83 12/21/23 07:36 Resp 20 12/21/23 07:36 BP 96/58 12/21/23 07:36 Pulse Ox 94 L 12/21/23 07:36 FiO2 40 12/17/23 11:28 Intake & Output 12/20/23 12/21/23 12/21/23 18:59 06:59 18:59 Output Total 2925 700 Balance -2925 -700 Weight 86 kg 83 kg Output: Urine 2650 700 Stool 275 Other: Voiding Method Indwelling Catheter Indwelling Catheter Indwelling Catheter ABP, PAP, CO, CI - Last Documented Arterial Blood Pressure 95/53 - Exam GENERAL EXAM: Alert, weak, frail 73-year-old female, resting in bed, on 4 L nasal cannula, in no acute distress. HEAD: Normocephalic. EYES: Normal reaction of pupils, equal size. NOSE: Clear with pink turbinates. THROAT: No erythema or exudates. NECK: No masses, no JVD. CHEST: No chest wall deformity. LUNGS: Equal air entry with crackles, diminished in the left lung base. CVS: S1 and S2 normal with no audible murmur, irregular rhythm. ABDOMEN: No hepatosplenomegaly, normal bowel sounds, no guarding or rigidity. SPINE: No scoliosis or deformity SKIN: No rashes CENTRAL NERVOUS SYSTEM: No focal deficits, tone is normal in all 4 extremities. EXTREMITIES: Right [id number] amputation. Significant swelling of the left lower extremity. Peripheral pulses are intact. - Labs CBC & Chem 7: 12/21/23 05:48 12/21/23 05:48 Labs: Abnormal Lab Results - Last 24 Hours (Table) 12/21/23 12/21/23 Range/Units 05:48 05:48 RBC 2.99 L (4.10-5.20) X 10*6/uL Hgb 7.7 L (12.0-15.0) g/dL Hct 25.8 L (37.2-46.3) % MCH 25.8 L (27.0-32.0) pg MCHC 29.8 L (32.0-37.0) g/dL RDW 26.0 H (11.5-14.5) % Plt Count 601 H (140-440) X 10*3/uL Carbon Dioxide 32.4 H (21.6-31.8) mmol/L Creatinine 0.5 L (0.6-1.5) mg/dL BUN/Creatinine Ratio 35.20 H (12.00-20.00) Ratio Calcium 7.8 L (8.7-10.3) mg/dL Microbiology - Last 24 Hours (Table) 12/04/23 16:00 Blood Culture Gram Stain - Final Blood Blood Culture - Final Assessment and Plan Assessment: Status post exploratory laparotomy, colectomy and diverting colostomy and debridement of cutaneous fistula December 06, 2023 Abdominal sepsis and septic shock, recovered New onset atrial fibrillation with RVR, currently on Eliquis Klebsiella pneumonia urinary tract infection Leukocytosis secondary to above, recovered Recurrent left lung collapse secondary to mucous plugging, status post bronchoscopy and lavage of left lung, done 12/10/2023, also done on 12/15/2023 Acute hypoxic and hypercapnic respiratory failure secondary to above None anion gap metabolic acidosis, resolved, bicarb drip was discontinued today History of previous right above-knee amputation Left buttocks unstageable pressure ulcer Hydropic gallbladder with multiple gallstones Adrenal nodules Strongly suspect critical illness polyneuropathy Plan: The patient was seen and evaluated Labs and medications reviewed Currently on 4 L nasal cannula Titrate the FiO2 as tolerated She declines any further interventions Prognosis remains poor She is a DNR/DNI CODE STATUS Plan is for subacute rehabilitation at discharge The patient was seen independently by the pulmonary nurse practitioner addressing pulmonary issues I have personally seen and examined the patient, performed the documentation and the assessment and plan as written. Number of minutes spent on the visit: 25.
--- NOTE | 2023-12-21 13:04 | P.PN ---
Subjective Progress Note Date: 12/21/23 The patient is a 73-year-old female who presented for an exploratory laparotomy sigmoid colectomy, diverting colostomy who had postoperative hypotension. She had episodes of atrial fibrillation. She is extubated on BiPAP, feeling better. Her blood pressure stable. Continues to be in sinus mechanism. Her urinary output is good. She denies any dizziness or palpitations. She underwent bronchoscopy for left lung collapse. She had no further episodes of atrial fibrillation. Her echocardiogram showed ejection fraction of 50%. She had mild to moderate mitral regurgitation. December 16: The patient continues to be on the BiPAP. She is hemodynamically stable. Continues to be on IV heparin. Her chest x-ray shows total collapse of the left lung. She has no evidence of atrial fibrillation. Her urine output is stable. There is no evidence of malignant arrhythmia. December 17: The patient is feeling well, she denies any chest discomfort or dizziness. According to the nursing staff she has not been using her BiPAP. She continues to have a white out of the left lung. She has declined bronchoscopy. She continues to be in sinus mechanism. Her blood pressure has been stable. Her urine output is stable. Her CODE STATUS has been discussed by the intensive care team with her and her family. December 18: The patient is awake and alert, tired. She is on nasal cannula, her oxygenation is stable. She denies any chest discomfort, dizziness or palpitations. She had an episode of brief nonsustained VT otherwise continues to be in sinus mechanism. Hemodynamically she is stable. Her urine output is stable. The patient is DNR and does not want to use the BiPAP or having any further broncho scopy. She had complete opacification of the left lung. 12/20/2023 Patient examined this morning at the bedside. She has been transferred to . Patient currently denies chest pain or pressure. She denies shortness of breath. She remains on 4 L nasal cannula with oxygen saturations greater than 92%. She continues to have significant left lower extremity swelling. She remains on IV diuretics. Kidney function remained stable this morning with a creatinine of 0.71. 12/21/2023 Patient was seen and examined resting comfortably in bed. From a cardiac standpoint she is relatively stable. There is been no signs or symptoms of recurrent atrial fibrillation she is maintained on anticoagulation with Eliquis. Renal function is stable. Hemoglobin stable at 7.7. She denies any chest discomfort or palpitations. She has had no complaints of shortness of breath. She denies any orthopnea or PND. Objective - Vital Signs Vital signs: Vital Signs Temp 98.7 F 12/21/23 07:36 Pulse 83 12/21/23 07:36 Resp 20 12/21/23 07:36 BP 96/58 12/21/23 07:36 Pulse Ox 94 L 12/21/23 07:36 FiO2 40 12/17/23 11:28 Intake & Output 12/20/23 12/21/23 12/21/23 18:59 06:59 18:59 Output Total 2925 700 Balance -2925 -700 Weight 86 kg 83 kg Output: Urine 2650 700 Stool 275 Other: Voiding Method Indwelling Catheter Indwelling Catheter Indwelling Catheter ABP, PAP, CO, CI - Last Documented Arterial Blood Pressure 95/53 - Exam VITAL SIGNS: Reviewed. GENERAL: Well-developed in no acute distress. NECK: Supple. No JVD or thyromegaly LUNGS: Respirations even and unlabored. Lungs diminished, worse on the left. HEART: Regular rate and rhythm. S1 and S2 heard. Systolic murmur noted. EXTREMITIES: Normal range of motion. No clubbing or cyanosis. Peripheral pulses intact. 2+ left lower extremity edema. Right AKA. - Labs CBC & Chem 7: 12/21/23 05:48 12/21/23 05:48 Labs: Abnormal Lab Results - Last 24 Hours (Table) 12/21/23 12/21/23 Range/Units 05:48 05:48 RBC 2.99 L (4.10-5.20) X 10*6/uL Hgb 7.7 L (12.0-15.0) g/dL Hct 25.8 L (37.2-46.3) % MCH 25.8 L (27.0-32.0) pg MCHC 29.8 L (32.0-37.0) g/dL RDW 26.0 H (11.5-14.5) % Plt Count 601 H (140-440) X 10*3/uL Carbon Dioxide 32.4 H (21.6-31.8) mmol/L Creatinine 0.5 L (0.6-1.5) mg/dL BUN/Creatinine Ratio 35.20 H (12.00-20.00) Ratio Calcium 7.8 L (8.7-10.3) mg/dL Microbiology - Last 24 Hours (Table) 12/04/23 16:00 Blood Culture Gram Stain - Final Blood Blood Culture - Final Assessment and Plan Assessment: 1. Status post abdominal surgery and colostomy 2. Paroxysmal atrial fibrillation, maintaining sinus mechanism 3. Left lung collapse status post bronchoscopy x 2 in the past 4. Status post right AKA 5. Fluid overload Plan: From cardiology's perspective medications were reviewed and we will continue the same. At this time we will follow the patient on an as-needed basis. Please do not hesitate to contact us with questions. ATOMIC PROCESS ENGINEER note has been reviewed, I agree with a documented findings and plan of care. Patient was seen and examined.
--- NOTE | 2023-12-21 13:55 | P.PN ---
Progress Note - Text Progress Note Date: 12/21/23 Patient is status post Magaña's colectomy with a enterocutaneous fistula. She is tolerating her diet of cold pancakes. She has no complaints today. Abdomen is soft.
--- NOTE | 2023-12-21 14:20 | P.PN ---
Subjective Progress Note Date: 12/21/23 73 years old female who presents to the emergency room for lower abdominal fistula drainage, associated with generalized weakness. Patient looks awake alert but tired looking, pale. Feels generally weak. N has mild generalized abdominal pain and tenderness. No rebound tenderness. Blood with malodorous left lower abdominal fistula drainage with fecal material coming out. Patient also with right rotation. Patient also with unstageable sacral pressure ulcer. With some evidence of cellulitis. Patient is mildly confused. But no headache or weakness in upper or lower patient was hypotensive with a blood pressure/42, currently slightly better 96/43. Potassium is low 2.9, WBC elevated 23,000, hemoglobin 7.4. Creatinine 0.7. Liver enzymes unremarkable. CT of the abdomen pelvis showing sigmoid diverticulitis and proctitis. 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 Please refer to the report for more details. Patient was ordered received normal saline boluses. Currently on Normosol at 130 mL/h She received 1 dose of Zosyn and started on Flagyl. We are going to add cefepime for gram-negative coverage. 12/21/2023 Patient is seen and evaluated in follow-up on the regular medical floor. She is currently sitting up in bed. Awake and alert in no acute distress. -- Remains on O2 at 4 L per nasal cannula maintaining O2 saturations in the mid 90s. She is afebrile. Hemodynamically stable. She has normal staying at KVO. --She continues on Unasyn and Eraxis. -White count 7.9. Hemoglobin 7.7. Platelets 601. Sodium 145. Potassium 3.6. Bicarb 32. BUN 18. Creatinine 0.5. Glucose 101. She remains on IV diuretics. She is currently in a -3.6 L balance. Objective - Vital Signs Vital signs: Vital Signs Temp 98.7 F 12/21/23 07:36 Pulse 83 12/21/23 07:36 Resp 20 12/21/23 07:36 BP 96/58 12/21/23 07:36 Pulse Ox 94 L 12/21/23 07:36 FiO2 40 12/17/23 11:28 Intake & Output 12/20/23 12/21/23 12/21/23 18:59 06:59 18:59 Output Total 2925 700 Balance -2925 -700 Weight 86 kg 83 kg Output: Urine 2650 700 Stool 275 Other: Voiding Method Indwelling Catheter Indwelling Catheter ABP, PAP, CO, CI - Last Documented Arterial Blood Pressure 95/53 - Exam -GENERAL: The patient is awake alert and oriented. Bilateral lower extremity HEENT: Pupils are round and equally reacting to light. EOMI. No scleral icterus. No conjunctival pallor. Normocephalic, atraumatic. No pharyngeal erythema. No thyromegaly. CARDIOVASCULAR: S1 and S2 present. No murmurs, rubs, or gallops. PULMONARY: Bibasilar diminished sounds and left basilar coarse sounds., no wheez ing. Nonlabored breathing. -ABDOMEN: Soft, nontender, nondistended, normoactive bowel sounds. No palpable organomegaly. Left lower abdominal colostomy bag MUSCULOSKELETAL: No joint swelling or deformity. -EXTREMITIES: No cyanosis, clubbing, bilateral trace pedal edema. Right elbow knee amputation, old NEUROLOGICAL: Gross neurological examination did not reveal any focal deficits. SKIN: No rashes. no petechiae. - Labs CBC & Chem 7: 12/21/23 05:48 12/21/23 05:48 Labs: Abnormal Lab Results - Last 24 Hours (Table) 12/21/23 12/21/23 Range/Units 05:48 05:48 RBC 2.99 L (4.10-5.20) X 10*6/uL Hgb 7.7 L (12.0-15.0) g/dL Hct 25.8 L (37.2-46.3) % MCH 25.8 L (27.0-32.0) pg MCHC 29.8 L (32.0-37.0) g/dL RDW 26.0 H (11.5-14.5) % Plt Count 601 H (140-440) X 10*3/uL Carbon Dioxide 32.4 H (21.6-31.8) mmol/L Creatinine 0.5 L (0.6-1.5) mg/dL BUN/Creatinine Ratio 35.20 H (12.00-20.00) Ratio Calcium 7.8 L (8.7-10.3) mg/dL Microbiology - Last 24 Hours (Table) 12/04/23 16:00 Blood Culture Gram Stain - Final Blood Blood Culture - Final Assessment and Plan Assessment: Acute sigmoid sigmoid colitis, diverticulitis with proctitis. With multiple entero-cutaneous and entero-vesical fistulas, including to the left lower abdominal wall. Septic shock secondary to above new onset. Improved Acute hypoxic respiratory failure requiring intubation and mechanical ventilation. S/p extubation on 12/24. Patient is currently on BiPAP-->4L via NC Left lung collapse secondary to mucous plugging status post bronchoscopy and lavage of left lung. Done on 12/10/2023 and also on 12/15/2023 Klebsiella urinary tract infection New onset A-fib and RVR Acute kidney injury, Improved no more need for dialysis Acute anemia, unknown baseline, chronic microcytic. S/p units of PRBC transfusion Full-thickness sacral pressure ulcer, left buttock. With no obvious osseous ero sions. Metabolic encephalopathy, with possible elements of delirium Bilateral adrenal nodule, recommend follow-up CT in 3 months. Hydropic gallbladder with multiple gallstones Anasarca With severe hypoalbuminemia Suspect critical illness polyneuropathy Patient is currently on BiPAP. Plan: Patient is currently on BiPAP Continue with antibiotic, meropenem-->unasyn and Eraxis ID team on the case. Continue with wound care and wound VAC in place with surgery team following closely Patient is being currently on Lasix 40 mg IV daily. pulmonary/critical care team is on board. Patient is on Eliquis and oral amiodarone for new onset atrial fibrillation with RVR. Heparin drip has been discontinued. Monitor and follow-up blood culture repeat cultures negative. DVT prophylaxis: Patient is on IV heparin, SCD GI prophylaxis: Protonix Prognosis guarded, CODE STATUS DNR/DNI Prognosis is poor at this time. Patient has declined BiPAP, bronchoscopy, reintubation.
--- NOTE | 2023-12-21 16:04 | P.PN ---
Subjective Progress Note Date: 12/21/23 Principal diagnosis: Reason for follow-up is complicated diverticulitis with colocutaneous fistula Patient is a 73-year-old female who was brought into the ER at [facility] for the patient complaining of generalized weakness patient noticed to have sacral pressure ulcer and also complicate diverticulitis with a fistula to the left lower abdominal wall.Patient was taken to the OR on 12/06/2023 and this patient was status post exploratory laparotomy with sigmoid colectomy takedown of the colocutaneous fistula left inguinal hernia repair and peritoneal lavage. On today's evaluation that is 12/21/2023,the patient remains to be afebrile, patient is on 4 L nasal cannula supplemental oxygen and denies any shortness of breath no chest pain or cough.Patient denies having any nausea or vomiting, no abdominal pain and no diarrhea has been reported. Patient white count 7.90, creatinine 0.5 Objective - Vital Signs Vital signs: Vital Signs Temp 98.0 F 12/21/23 13:52 Pulse 86 12/21/23 13:52 Resp 22 12/21/23 13:52 BP 118/67 12/21/23 13:52 Pulse Ox 97 12/21/23 13:52 FiO2 40 12/17/23 11:28 Intake & Output 12/20/23 12/21/23 12/21/23 18:59 06:59 18:59 Output Total 2925 700 1800 Balance -2925 -700 -1800 Weight 86 kg 83 kg Output: Urine 2650 700 1800 Stool 275 Other: Voiding Method Indwelling Catheter Indwelling Catheter Indwelling Catheter ABP, PAP, CO, CI - Last Documented Arterial Blood Pressure 95/53 - Exam GENERAL DESCRIPTION: An elderly female lying in bed in no distress RESPIRATORY SYSTEM: Unlabored breathing , decreased breath sounds at bases HEART: S1 S2 regular rate and rhythm , ABDOMEN: Soft , no tenderness EXTREMITIES: No edema feet - Labs CBC & Chem 7: 12/21/23 05:48 12/21/23 05:48 Labs: Abnormal Lab Results - Last 24 Hours (Table) 12/21/23 12/21/23 Range/Units 05:48 05:48 RBC 2.99 L (4.10-5.20) X 10*6/uL Hgb 7.7 L (12.0-15.0) g/dL Hct 25.8 L (37.2-46.3) % MCH 25.8 L (27.0-32.0) pg MCHC 29.8 L (32.0-37.0) g/dL RDW 26.0 H (11.5-14.5) % Plt Count 601 H (140-440) X 10*3/uL Carbon Dioxide 32.4 H (21.6-31.8) mmol/L Creatinine 0.5 L (0.6-1.5) mg/dL BUN/Creatinine Ratio 35.20 H (12.00-20.00) Ratio Calcium 7.8 L (8.7-10.3) mg/dL Microbiology - Last 24 Hours (Table) 12/04/23 16:00 Blood Culture Gram Stain - Final Blood Blood Culture - Final Assessment and Plan (1) Diverticulitis of intestine, part unspecified, without perforation or abscess without bleeding Current Visit: Yes Status: Acute Code(s): K57.92 - DVTRCLI OF INTEST, PART UNSP, W/O PERF OR ABSCESS W/O BLEED SNOMED Code(s): 568152788 (2) Leukocytosis Current Visit: Yes Status: Acute Code(s): D72.829 - ELEVATED WHITE BLOOD CELL COUNT, UNSPECIFIED SNOMED Code(s): 715598562 (3) Sepsis Current Visit: Yes Status: Acute Code(s): A41.9 - SEPSIS, UNSPECIFIED ORGANISM SNOMED Code(s): 53655918 (4) Gram-negative bacteremia Current Visit: Yes Status: Acute Code(s): R78.81 - BACTEREMIA SNOMED Code(s): 568036825983 Plan: 1patient with complicated diverticulitis with evidence of fistulous communic ation to the skin left lower quadrant area and concern for possible extension to the bladder, will need to cover for the polymicrobial jessie associated with such condition including enteric gram-negative both aerobes and anaerobes 2-patient also have a sacral pressure ulcer but no significant surrounding cellulitis, wound care has been consulted continue local wound care per them 3Fusobacterium 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 that is beta-lactamase negative repeat blood culture has been negative so far 3-patient is status post extensive surgery including 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 5patient sputum culture grew Romelia bronchoscopy culture also grew Romelia as well as abdominal culture growing Romelia albicans 6-patient remains to be afebrile and the patient white normalized 7-patient to continue with Unasyn and Eraxis, monitor clinical course closely Dictation was produced using [employer] dictation software. please excuse any grammatical, word or spelling errors. Time with Patient: Less than 30
--- NOTE | 2023-12-22 10:39 | P.PN ---
Progress Note - Text Progress Note Date: 12/22/23 Patient still. She has no pain. On exam vital signs are stable. Abdomen soft. Status post heart procedure patient will continue receive supportive care.
--- NOTE | 2023-12-22 11:22 | P.PN ---
Subjective Progress Note Date: 12/22/23 Principal diagnosis: Respiratory failure, mucous plugs. The patient is seen today December 16, 2023 in follow-up in the intensive care unit. She is currently sitting up in bed. Awake. Currently on BiPAP 12/6 and 40% FiO2. She remains on a heparin drip. Normal saline it keep mean open. Chest x-ray continues to show worsening aeration and volume loss in the left lower lung. She is status post 2 units of packed red blood cells this admission. Current hemoglobin 7.9. Platelets 338. White count 10.7. Sodium 139. Potassium 3.7. Bicarb 35. BUN 29. Creatinine 0.49. Glucose 109. She continues on bronchodilators. Eraxis and meropenem. She is receiving chest physiotherapy in an attempt to keep the left lung open. She did undergo bedside bronchoscopy yesterday with improved aeration however within 24 hours there is new left lower lobe collapse. She is not to be reintubated and remains a DO NOT RESUSCITATE CODE STATUS. The patient is seen today December 17, 2023 in follow-up in the intensive care unit. She is currently resting in bed. She remains on the BiPAP 12/6 and 40% FiO2. Today's chest x-ray shows recurrent complete whiteout of the left lung. Bronchoalveolar wash was positive for Romelia only. White count 10.0. Hemoglobin 8.1. Platelets 373. Sodium 139. Potassium 3.6. Bicarb 32. BUN 28. Creatinine 0.51. Glucose 113. She is continued on DuoNebs, antibiotics in the form of Merrem. Continued on Eraxis. She is on a heparin drip. Continued on oral amiodarone. The patient is seen today December 18, 2023 in follow-up in the intensive care unit. She is sitting up in bed. Awake and alert in no acute distress. She remains on a heparin drip. She remains on normal saline at KVO. She is currently on oxygen at 5 L/min per nasal cannula with O2 saturations in the upper 90s. She is afebrile. Hemodynamically stable. Chest x-ray continues to show ongoing complete whiteout with volume loss of the left hemithorax. She has decided not to wear the BiPAP, not to be reintubated, no bronchoscopy procedures. She is continued on Eraxis and meropenem. Remains on bronchodilators. The patient is seen today December 19, 2023 in follow-up in the intensive care unit. She is currently sitting up in bed. Awake and alert in no acute distres s. She is maintaining O2 saturations in the 90s on 4 L/min per nasal cannula. She has normal saline at 20 MLS per hour. She is currently in sinus rhythm. She is continued on amiodarone and anticoagulated with Eliquis. Remains on IV diuretics. Remains on Eraxis and meropenem. She is status post 2 units of packed red blood cells this admission. Current hemoglobin 8.3. Platelets 472. White count 8.1. Sodium 138. Potassium 4.0. Bicarb 30. BUN 21. Creatinine 0.44. Glucose 84. The patient is seen today December 20, 2023 in follow-up on the regular medical floor. She was transferred out of the ICU yesterday. She is currently sitting up in bed. Awake and alert in no acute distress. She is currently maintaining good O2 saturations in the mid 90s on 4 L/min per nasal cannula. She is afebrile. Hemodynamically stable. She is status post 2 units of packed red blood cells this admission. Current hemoglobin 7.3. Platelets 522. White count 7.6. Sodium 139. Potassium 3.9. Bicarb 33. BUN 20. Creatinine 0.71. She is continued on Unasyn, Eraxis. Remains on IV diuretics. Currently net - 3.5 L balance. Bronchial wash cultures revealed Romelia only. The patient is seen today December 21, 2023 in follow-up on the regular medical floor. She is currently sitting up in bed. Awake and alert in no acute distress. She is maintaining good O2 saturations in the mid 90s on 4 L/min per nasal cannula. She is afebrile. Hemodynamically stable. She has normal staying at KVO. She continues on Unasyn and Eraxis. She is diminished in the left lung. White count 7.9. Hemoglobin 7.7. Platelets 601. Sodium 145. Potassium 3.6. Bicarb 32. BUN 18. Creatinine 0.5. Glucose 101. She remains on IV diuretics. She is currently in a -3.6 L balance. Progress note dated December 22, 2023. This is a 73-year-old female who is now been in the hospital for 18 days. The patient is seen today in room 518. The patient continues on oxygen, at 4 L, with saturations of 96%. The patient is getting saline at 20 cc an hour. Previously, the patient was in the intensive care unit. At 1 point, the patient decided that she did not want mechanical ventilation, bronchoscopy, BiPAP, etc. The patient was transferred out of the intensive care unit. No new labs today. The labs from yesterday have been reviewed. Urine from December 04, showed evidence of Klebsiella pneumonia I. Subsequent sputum, and BAL sampling, showed evidence of Romelia albicans. The patient continues on Unasyn, and Eraxis. No recent chest x-ray to speak of. Objective - Vital Signs Vital signs: Vital Signs Temp 97.6 F 12/22/23 07:27 Pulse 86 12/22/23 07:27 Resp 21 12/22/23 07:27 BP 115/60 12/22/23 07:27 Pulse Ox 96 12/22/23 07:27 FiO2 40 12/17/23 11:28 Intake & Output 12/21/23 12/22/23 12/22/23 18:59 06:59 18:59 Output Total 2400 1050 1250 Balance -2400 -1050 -1250 Weight 82 kg Output: Urine 2400 1050 1250 Other: Voiding Method Indwelling Catheter Indwelling Catheter Indwelling Catheter ABP, PAP, CO, CI - Last Documented Arterial Blood Pressure 95/53 - Exam No acute distress, lethargic/somnolent, arousable, on 4 L, with saturations of 96%. HEENT examination is grossly unremarkable. Neck supple. Full range of motion. No adenopathy thyromegaly or neck vein distention. Cardiovascular examination reveals regular rhythm rate. S1-S2 normal. No S3 or S4. No discernible murmur noted. Rate 86 bpm. Lungs reveal severely diminished breath sounds on the left. Scattered rhonchi on the right. No wheezes or crackles. Saturations are 96% on 4 L. Abdomen soft, without bowel sounds. No masses or tenderness. Extremities are intact. No cyanosis clubbing or edema. Skin is without rash or lesion. Neurologic examination reveals a patient who is lethargic/somnolent. She does move all 4 extremities. - Labs CBC & Chem 7: 12/21/23 05:48 12/21/23 05:48 Assessment and Plan Assessment: Status post exploratory laparotomy, colectomy and diverting colostomy and debridement of cutaneous fistula December 06, 2023. Abdominal sepsis and septic shock, recovered. New onset atrial fibrillation with RVR, currently on Eliquis. Klebsiella pneumonia urinary tract infection. Leukocytosis secondary to above, recovered. Recurrent left lung collapse secondary to mucous plugging, status post bronchoscopy and lavage of left lung, done 12/10/2023, also done on 12/15/2023. Acute hypoxic and hypercapnic respiratory failure secondary to above. History of previous right above-knee amputation. Left buttocks unstageable pressure ulcer. Hydropic gallbladder with multiple gallstones. Adrenal nodules. Strongly suspect critical illness polyneuropathy. Plan: Plan dated December 22, 2023. The patient was seen and evaluated. The patient's labs, x-rays, and medications are reviewed. Currently, the patient is on 4 L by nasal cannula. The patient declines further interventions. She does continue on Eraxis, and Unasyn. The patient's overall prognosis remains very poor. The patient is a DO NOT RESUSCITATE/DO NOT INTUBATE patient. The plan is for subacute rehabilitation at discharge. We will continue to follow make recommendations. Time with Patient: Less than 30
[2023-12-22] MEDS: ACETAMINOPHEN TAB 325 MG TAB PO PRN (14:30)
[2023-12-22] MEDS: NYSTATIN 100,000 UNIT/GM POWD 15 GM TOPICAL SCH (14:31)
--- NOTE | 2023-12-22 15:27 | P.PN ---
Subjective Progress Note Date: 12/22/23 Principal diagnosis: Reason for follow-up is complicated diverticulitis with colocutaneous fistula Patient is a 73-year-old female who was brought into the ER at [facility] for the patient complaining of generalized weakness patient noticed to have sacral pressure ulcer and also complicate diverticulitis with a fistula to the left lower abdominal wall.Patient was taken to the OR on 12/06/2023 and this patient was status post exploratory laparotomy with sigmoid colectomy takedown of the colocutaneous fistula left inguinal hernia repair and peritoneal lavage. On today's evaluation that is 12/22/2023, the patient continues to be afebrile, the patient is on 4 L nasal cannula oxygen and breathing comfortably, the Pt has been complaining of right ear and nasal stuffiness, denies having any chest pain or cough, the patient denies having any abdominal pain no vomiting or any diarrhea has been reported by the nursing staff. White count 7.90, creatinine 0.5 Objective - Vital Signs Vital signs: Vital Signs Temp 98.2 F 12/22/23 13:08 Pulse 85 12/22/23 13:08 Resp 22 12/22/23 13:08 BP 121/68 12/22/23 13:08 Pulse Ox 97 12/22/23 13:08 FiO2 40 12/17/23 11:28 Intake & Output 12/21/23 12/22/23 12/22/23 18:59 06:59 18:59 Output Total 2400 1050 1250 Balance -2400 -1050 -1250 Weight 82 kg Output: Urine 2400 1050 1250 Other: Voiding Method Indwelling Catheter Indwelling Catheter Indwelling Catheter ABP, PAP, CO, CI - Last Documented Arterial Blood Pressure 95/53 - Exam GENERAL DESCRIPTION: An elderly female lying in bed in no distress RESPIRATORY SYSTEM: Unlabored breathing , decreased breath sounds at bases HEART: S1 S2 regular rate and rhythm , ABDOMEN: Soft , no tenderness EXTREMITIES: No edema feet - Labs CBC & Chem 7: 12/21/23 05:48 12/21/23 05:48 Assessment and Plan (1) Diverticulitis of intestine, part unspecified, without perforation or abscess without bleeding Current Visit: Yes Status: Acute Code(s): K57.92 - DVTRCLI OF INTEST, PART UNSP, W/O PERF OR ABSCESS W/O BLEED SNOMED Code(s): 110001199 (2) Leukocytosis Current Visit: Yes Status: Acute Code(s): D72.829 - ELEVATED WHITE BLOOD CELL COUNT, UNSPECIFIED SNOMED Code(s): 749023043 (3) Sepsis Current Visit: Yes Status: Acute Code(s): A41.9 - SEPSIS, UNSPECIFIED ORGANISM SNOMED Code(s): 19296973 (4) Gram-negative bacteremia Current Visit: Yes Status: Acute Code(s): R78.81 - BACTEREMIA SNOMED Code(s): 746181042122 Plan: 1patient with complicated diverticulitis with evidence of fistulous communication to the skin left lower quadrant area and concern for possible extension to the bladder, will need to cover for the polymicrobial jessie associ ated with such condition including enteric gram-negative both aerobes and anaerobes 2-patient also have a sacral pressure ulcer but no significant surrounding cellulitis, wound care has been consulted continue local wound care per them 3Fusobacterium 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 that is beta-lactamase negative repeat blood culture has been negative so far 3-patient is status post extensive surgery including 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 5patient sputum culture grew Romelia bronchoscopy culture also grew Romelia as well as abdominal culture growing Romelia albicans 6-patient remains to be afebrile and the patient white normalized 7-patient to continue with Unasyn and Eraxis, will need a 7 to 10-day course of IV Unasyn and Eraxis on discharge as we cannot use Diflucan patient is on amiodarone Dictation was produced using [employer] software. please excuse any grammatical, word or spelling errors.
--- NOTE | 2023-12-22 15:58 | P.PN ---
Subjective Progress Note Date: 12/22/23 73 years old female who presents to the emergency room for lower abdominal fistula drainage, associated with generalized weakness. Patient looks awake alert but tired looking, pale. Feels generally weak. N has mild generalized abdominal pain and tenderness. No rebound tenderness. Blood with malodorous left lower abdominal fistula drainage with fecal material coming out. Patient also with right rotation. Patient also with unstageable sacral pressure ulcer. With some evidence of cellulitis. Patient is mildly confused. But no headache or weakness in upper or lower patient was hypotensive with a blood pressure/42, currently slightly better 96/43. Potassium is low 2.9, WBC elevated 23,000, hemoglobin 7.4. Creatinine 0.7. Liver enzymes unremarkable. CT of the abdomen pelvis showing sigmoid diverticulitis and proctitis. 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 Please refer to the report for more details. Patient was ordered received normal saline boluses. Currently on Normosol at 130 mL/h She received 1 dose of Zosyn and started on Flagyl. We are going to add cefepime for gram-negative coverage. 12/21/2023 Patient is seen and evaluated in follow-up on the regular medical floor. She is currently sitting up in bed. Awake and alert in no acute distress. -- Remains on O2 at 4 L per nasal cannula maintaining O2 saturations in the mid 90s. She is afebrile. Hemodynamically stable. She has normal staying at KVO. --She continues on Unasyn and Eraxis. -White count 7.9. Hemoglobin 7.7. Platelets 601. Sodium 145. Potassium 3.6. Bicarb 32. BUN 18. Creatinine 0.5. Glucose 101. She remains on IV diuretics. She is currently in a -3.6 L balance. 12/22/2023 the patient is seen and evaluated in room at bedside; continues to be afebrile, the patient is on 4 L nasal cannula oxygen and breathing comfortably, the Pt has been complaining of right ear and nasal stuffiness, denies having any chest pain or cough, the patient denies having any abdominal pain no vomiting or any diarrhea has been reported. -patient is status post extensive surgery including 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 patient sputum culture grew Romelia bronchoscopy culture also grew Romelia as well as abdominal culture growing Romelia albicans -ID on board and recommending for patient to continue with Unasyn and Eraxis, will need a 7 to 10-day course of IV Unasyn and Eraxis on discharge as we cannot use Diflucan patient is on amiodarone Objective - Vital Signs Vital signs: Vital Signs Temp 97.6 F 12/22/23 07:27 Pulse 86 12/22/23 07:27 Resp 21 12/22/23 07:27 BP 115/60 12/22/23 07:27 Pulse Ox 96 12/22/23 07:27 FiO2 40 12/17/23 11:28 Intake & Output 12/21/23 12/22/23 12/22/23 18:59 06:59 18:59 Output Total 2400 1050 1250 Balance -2400 -1050 -1250 Weight 82 kg Output: Urine 2400 1050 1250 Other: Voiding Method Indwelling Catheter Indwelling Catheter Indwelling Catheter ABP, PAP, CO, CI - Last Documented Arterial Blood Pressure 95/53 - Exam -GENERAL: The patient is awake alert and oriented. Bilateral lower extremity HEENT: Pupils are round and equally reacting to light. EOMI. No scleral icterus. No conjunctival pallor. Normocephalic, atraumatic. No pharyngeal erythema. No thyromegaly. CARDIOVASCULAR: S1 and S2 present. No murmurs, rubs, or gallops. PULMONARY: Bibasilar diminished sounds and left basilar coarse sounds., no wheezing. Nonlabored breathing. -ABDOMEN: Soft, nontender, nondistended, normoactive bowel sounds. No palpable organomegaly. Left lower abdominal colostomy bag MUSCULOSKELETAL: No joint swelling or deformity. -EXTREMITIES: No cyanosis, clubbing, bilateral trace pedal edema. Right elbow knee amputation, old NEUROLOGICAL: Gross neurological examination did not reveal any focal deficits. SKIN: No rashes. no petechiae. - Labs CBC & Chem 7: 12/21/23 05:48 12/21/23 05:48 Assessment and Plan Assessment: Acute sigmoid sigmoid colitis, diverticulitis with proctitis. With multiple entero-cutaneous and entero-vesical fistulas, including to the left lower abdominal wall. Septic shock secondary to above new onset. Improved Acute hypoxic respiratory failure requiring intubation and mechanical ventilation. S/p extubation on 12/24. Patient is currently on BiPAP-->4L via NC Left lung collapse secondary to mucous plugging status post bronchoscopy and lavage of left lung. Done on 12/10/2023 and also on 12/15/2023 Klebsiella urinary tract infection New onset A-fib and RVR Acute kidney injury, Improved no more need for dialysis Acute anemia, unknown baseline, chronic microcytic. S/p units of PRBC transfusion Full-thickness sacral pressure ulcer, left buttock. With no obvious osseous erosions. Metabolic encephalopathy, with possible elements of delirium Bilateral adrenal nodule, recommend follow-up CT in 3 months. Hydropic gallbladder with multiple gallstones Anasarca With severe hypoalbuminemia Suspect critical illness polyneuropathy Patient is currently on BiPAP. Plan: Patient is currently on BiPAP Continue with antibiotic, meropenem-->unasyn and Eraxis ID team on the case. Continue with wound care and wound VAC in place with surgery team following closely Patient is being currently on Lasix 40 mg IV daily. pulmonary/critical care team is on board. Patient is on Eliquis and oral amiodarone for new onset atrial fibrillation with RVR. Heparin drip has been discontinued. Monitor and follow-up blood culture repeat cultures negative. DVT prophylaxis: Patient is on IV heparin, SCD GI prophylaxis: Protonix Prognosis guarded, CODE STATUS DNR/DNI Prognosis is poor at this time. Patient has declined BiPAP, bronchoscopy, reintubation.
[2023-12-23] MEDS: IOPAMIDOL CONTRAST (ORAL USE) VIAL PO PRN (11:27)
--- NOTE | 2023-12-23 14:46 | P.PN ---
Subjective Progress Note Date: 12/23/23 This is a 74-year-old female patient who underwent exploratory laparotomy and sigmoid colectomy and diverging colostomy. The patient was emergently taken to the operating room this afternoon as the patient was becoming hypotensive and she had developed persistent leukocytosis intermittent fevers consistent with sepsis and septic shock. The patient was also becoming hypotensive The patient has developed a colocutaneous fistula and the preop CAT scan of the abdomen shows a perforated diverticular disease with fistulization to the skin. On today's evaluation of 12/23/2023, the patient is being seen for a follow-up. The patient has no specific complaints. The patient has undergone a complicated abdominal surgery which involved explant laparotomy, colectomy and diverting colostomy and debridement of a cutaneous fistula and this was done on 12/06/2023. The patient also status post ventilator dependent respiratory failure and the patient has been weaned off and extubated. The patient currently is on 4 L of oxygen by nasal cannula. She also had abdominal sepsis and septic shock, recovered. At this point in time, the patient is on the medical floor, hemodynamically stable. Her colostomy is functional. Her WBC count is at 7.9 with hemoglobin 7.7 and platelet count of 601. BUN is at 17 with a creatinine of 0.7 and sodium levels at 145. The patient remains on Eraxis and IV Unasyn. Follow-up CAT scan of the abdomen and pelvis is in progress for today. The patient will also need a follow-up chest x-ray regarding ongoing issues with recurrent atelectasis and volume loss of the left lung. Most recent chest x-ray was done on 12/18/2023. Objective - Vital Signs Vital signs: Vital Signs Temp 98.3 F 12/23/23 07:21 Pulse 86 12/23/23 07:21 Resp 17 12/23/23 07:21 BP 109/63 12/23/23 07:21 Pulse Ox 95 12/23/23 07:21 FiO2 40 12/17/23 11:28 Intake & Output 12/22/23 12/23/23 12/23/23 18:59 06:59 18:59 Output Total 1850 Balance -1850 Weight 83.5 kg Output: Urine 1850 Other: Voiding Method Indwelling Catheter Indwelling Catheter Indwelling Catheter ABP, PAP, CO, CI - Last Documented Arterial Blood Pressure 95/53 - Exam No acute distress, lethargic/somnolent, arousable, on 4 L, with saturations of 96%. HEENT examination is grossly unremarkable. Neck supple. Full range of motion. No adenopathy thyromegaly or neck vein distention. Cardiovascular examination reveals regular rhythm rate. S1-S2 normal. No S3 or S4. No discernible murmur noted. Lungs reveal severely diminished breath sounds on the left. Scattered rhonchi on the right. No wheezes or crackles. The patient diminished breath sounds bilaterally more so on the left. Abdomen soft, without bowel sounds. No masses or tenderness. The patient is a clear mid abdominal surgical wound and umang are still in place. The patient has a colostomy and the wound VAC has been applied at the site of the enterocutaneous fistula. Extremities are intact. No cyanosis clubbing or edema. The patient has a right above-knee amputation Skin is without rash or lesion. The patient has stage IV sacral decubitus ulceration. Neurologic examination reveals a patient who is lethargic/somnolent. She does move all 4 extremities. - Labs CBC & Chem 7: 12/21/23 05:48 12/21/23 05:48 Assessment and Plan Plan: Status post exploratory laparotomy, colectomy and diverting colostomy and debridement of cutaneous fistula December 06, 2023. Surgical wound site is clean. Colostomy is functional. The patient has a wound VAC applied to the enterocutaneous fistula site. Abdominal sepsis and septic shock, recovered. Clinically and hemodynamically stable at this point in time Paroxysmal atrial fibrillation, rate is controlled Recurrent left lung collapse secondary to mucous plugging, status post bronchoscopy and lavage of left lung, done 12/10/2023, also done on 12/15/2023. Most recent chest x-ray from 12/18/2023 showed significant volume loss and atelectasis of the left lung along with possibly some residual pleural effusion Acute hypoxic and hypercapnic respiratory failure secondary to above. Patient is currently on 4 L of O2 nasal cannula History of previous right above-knee amputation. Left buttocks unstageable pressure ulcer, likely stage IV Hydropic gallbladder with multiple gallstones. Adrenal nodules. Strongly suspect critical illness polyneuropathy. Plan Continue attempts to titrate the patient's FiO2 currently on 4 L of oxygen by nasal cannula Encourage use of incentive spirometer Repeat chest x-ray for tomorrow CAT scan of the abdomen pelvis was ordered and the results will be noted Continue Unasyn and Eraxis for now Wound care Colostomy care . Continue amiodarone and anticoagulation with Eliquis will continue to follow
--- NOTE | 2023-12-23 15:20 | P.PN ---
Subjective Progress Note Date: 12/23/23 CHIEF COMPLAINT: Perforated diverticular disease with fistulization to the skin HISTORY OF PRESENT ILLNESS: The patient is a 11-juuw[age]fl-year-old female status post exploratory laparotomy, Magaña's procedure for colocutaneous fistula and septic shock. Patient is lying in bed comfortably. She is tolerating low fiber diet. Her platelets are trending upwards. She is scheduled to have her wound VAC changed today. She will be discharged to ECF at time of discharge. Ostomy is functioning. She does have a large sacral wound with tunneling. Afebrile. WBC 7.9 Hgb 7.7 platelets 601 PHYSICAL EXAM: VITAL SIGNS: Reviewed GENERAL: no acute distress. HEENT: No sclera icterus. Extraocular movements grossly intact. Moist buccal mucosa. Head is atraumatic, normocephalic. Hears conversational speech. No nasal drainage. NECK: Supple without lymphadenopathy. CHEST: Non-labored respirations and equal bilateral excursions. CARDIOVASCULAR: Palpable 2+ radial pulses. ABDOMEN: Soft. Nondistended. Midline incision with Optifoam dressing clean dry and intact stoma beefy red. Stool in ostomy bag. Left lower abdomen wound VAC intact. MUSCULOSKELETAL: No clubbing or cyanosis. NEUROLOGIC: No focal or lateralizing signs. Cranial nerves II through XII grossly intact. Skin: Large sacral decubitus ulcer, unstageable, tunneling noted. Eschar tissue present. Granulation tissue present ASSESSMENT: 1. Septic shock 2. 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 Lack of general medical care 4. Complicated left groin wound, 4 cm 5. Intermesenteric abscess, pelvis 6. Left inguinal hernia 7. Atrial fibrillation with rapid ventricular response 8. Collapsed left lung secondary to mucous plugging with prior bronchoscopy x 2 9. Large sacral decubitus ulcer, unstageable 10. Thrombocytosis PLAN: -Further recommendations forthcoming per surgeon regarding possible debridement of sacral decubitus ulcer -CT scan abdomen and pelvis ordered regarding increase in platelets and to rule out fluid collection in abdomen -Continue supportive care -Continue low fiber diet. Patient and family are aware she is high risk for aspiration -Wound VAC to be changed today -Continue pain management -Continue antibiotics and antifungal per ID service -DVT prophylaxis Eliquis -Consult PT OT -Consult social work for ECF placement at discharge Physician [employer] note has been reviewed by physician. Signing provider agrees with the documented findings, assessment, and plan of care. Objective - Vital Signs Vital signs: Vital Signs Temp 98.3 F 12/23/23 07:21 Pulse 86 12/23/23 07:21 Resp 17 12/23/23 07:21 BP 109/63 12/23/23 07:21 Pulse Ox 95 12/23/23 07:21 FiO2 40 12/17/23 11:28 Intake & Output 12/22/23 12/23/23 12/23/23 18:59 06:59 18:59 Output Total 1850 Balance -1850 Weight 83.5 kg Output: Urine 1850 Other: Voiding Method Indwelling Catheter Indwelling Catheter Indwelling Catheter ABP, PAP, CO, CI - Last Documented Arterial Blood Pressure 95/53 - Labs CBC & Chem 7: 12/21/23 05:48 12/21/23 05:48
--- NOTE | 2023-12-23 19:46 | CT ---
EXAMINATION TYPE: CT abdomen pelvis w con CT DLP: 1854 mGycm, Automated exposure control for dose reduction was used. DATE OF EXAM: 12/23/2023 1:32 PM COMPARISON: CT abdomen and pelvis 12/04/2023 CLINICAL INDICATION:Female, 73 years old with history of abdominal pain, rule out abscess; abd pain. Prior study gives history of cancer. TECHNIQUE: Axial CT abdomen pelvis w con;Sagittal and coronal reformats were created on a separate w orkstation. Contrast used:100 mL of Isovue 370 with IV Contrast, (none if empty) Oral contrast used: with Oral Contrast (none if empty) FINDINGS: LOWER CHEST: Atelectasis/consolidation with associated moderate bilateral pleural effusions. ABDOMEN LIVER: Small irregular margins ascites GALLBLADDER AND BILE DUCTS: Several moderate-sized gallstones are once again identified similar to pr ior. PANCREAS: Intact. No inflammatory changes appreciated. SPLEEN: Unremarkable. ADRENAL GLANDS: A 2.1 cm left and a 1.3 cm right adrenal nodule are identified once again, unchanged from prior. KIDNEYS AND URETERS: No evidence of hydronephrosis or renal calculus. The ureters are unremarkable. Kidneys enhance and excrete contrast normally. Bilateral cortical cysts are simple and require no fol low-up. PELVIS BLADDER: Gill catheter in place. REPRODUCTIVE: Unremarkable. ABDOMEN & PELVIS STOMACH AND BOWEL: Stomach and duodenum are unremarkable. No evidence of bowel obstruction. As befor e, perforated diverticulitis is a consideration versus perforated sigmoid colon carcinoma versus othe r source of large amount of abdominal and pelvic free fluid. PERITONEUM/RETROPERITONEUM: No evidence of pneumoperitoneum. Large amount free fluid.. Much larger t miller before. VASCULATURE: No evidence of aortic aneurysm. MUSCULOSKELETAL: No acute osseous abnormalities LYMPH NODES: No gross evidence for lymphadenopathy. SOFT TISSUE/ABDOMINAL WALL: Fistula tract left lower quadrant. Marked soft tissue edema, possibly ira sarca. Large (9 cm AP by 16 cm craniocaudal) fluid collection in the lateral mid abdomen soft tissues . Left of midline abdominal wall ventral hernia containing a loop bowel versus possible ostomy. Corre late with history of ostomy surgery and/or other clinical physical exam and history. IMPRESSION: 1. Large volume abdominal free fluid and moderately large bilateral pleural effusions. Consider perf orated diverticulitis (as before) versus perforated colon carcinoma are less likely cirrhosis. 2. Greatly worsened anasarca with large localized fluid collection within the mid left abdominal wall laterally. 3. Fistula left lower quadrant to inguinal region. 4. Ostomy site versus hernia sac with bowel wall possibly penetrating the skin. Located left of midli ne, ventral abdomen, lower mid abdomen. 5. Coccygeal decubitus ulcer exposing the bony surface of the coccyx. 6. Bilateral adrenal nodules. 7. Uncomplicated cholelithiasis
--- NOTE | 2023-12-23 22:24 | P.PN ---
Subjective Progress Note Date: 12/23/23 Principal diagnosis: Reason for follow-up is complicated diverticulitis with colocutaneous fistula Patient is a 73-year-old female who was brought into the ER at [facility] for the patient complaining of generalized weakness patient noticed to have sacral pressure ulcer and also complicate diverticulitis with a fistula to the left lower abdominal wall.Patient was taken to the OR on 12/06/2023 and this patient was status post exploratory laparotomy with sigmoid colectomy takedown of the colocutaneous fistula left inguinal hernia repair and peritoneal lavage. On today's evaluation that is 12/23/2023, Patient is afebrile patient is currently on 4 L nasal cannula oxygen and denies having any shortness of breath, the patient denies any chest pain or cough, the patient denies any nausea vomiting did not have any abdominal pain and did have output in the colostomy bag. No new labs has been obtained today Objective - Vital Signs Vital signs: Vital Signs Temp 98.3 F 12/23/23 07:21 Pulse 86 12/23/23 07:21 Resp 17 12/23/23 07:21 BP 109/63 12/23/23 07:21 Pulse Ox 95 12/23/23 07:21 FiO2 40 12/17/23 11:28 Intake & Output 12/22/23 12/23/23 12/23/23 18:59 06:59 18:59 Output Total 1850 1550 Balance -1850 -1550 Weight 83.5 kg Output: Urine 1850 1550 Other: Voiding Method Indwelling Catheter Indwelling Catheter Indwelling Catheter ABP, PAP, CO, CI - Last Documented Arterial Blood Pressure 95/53 - Exam GENERAL DESCRIPTION: An elderly female lying in bed in no distress RESPIRATORY SYSTEM: Unlabored breathing , decreased breath sounds at bases HEART: S1 S2 regular rate and rhythm , ABDOMEN: Soft , no tenderness EXTREMITIES: No edema feet - Labs CBC & Chem 7: 12/21/23 05:48 12/21/23 05:48 Assessment and Plan (1) Diverticulitis of intestine, part unspecified, without perforation or abscess without bleeding Current Visit: Yes Status: Acute Code(s): K57.92 - DVTRCLI OF INTEST, PART UNSP, W/O PERF OR ABSCESS W/O BLEED SNOMED Code(s): 500584387 (2) Leukocytosis Current Visit: Yes Status: Acute Code(s): D72.829 - ELEVATED WHITE BLOOD CELL COUNT, UNSPECIFIED SNOMED Code(s): 426416994 (3) Sepsis Current Visit: Yes Status: Acute Code(s): A41.9 - SEPSIS, UNSPECIFIED ORGANISM SNOMED Code(s): 58857147 (4) Gram-negative bacteremia Current Visit: Yes Status: Acute Code(s): R78.81 - BACTEREMIA SNOMED Code(s): 108253412942 Plan: 1patient with complicated diverticulitis with evidence of fistulous communication to the skin left lower quadrant area and concern for possible extension to the bladder, will need to cover for the polymicrobial jessie associated with such condition including enteric gram-negative both aerobes and anaerobes 2-patient also have a sacral pressure ulcer but no significant surrounding tiffany lulitis, wound care has been consulted continue local wound care per them 3Fusobacterium 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 that is beta-lactamase negative repeat blood culture has been negative so far 3-patient is status post extensive surgery including 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 5patient sputum culture grew Romelia bronchoscopy culture also grew Romelia as well as abdominal culture growing Romelia albicans 6-patient remains to be afebrile and the patient white normalized, patient did have elevated platelet count CT abdominal pelvis has been ordered by surgery and results will be followed 7-patient to continue with Unasyn and Eraxis, await CT abdominal pelvis before recommending any discharge antibiotics Dictation was produced using [employer] dictation software. please excuse any grammatical, word or spelling errors. Time with Patient: Less than 30
--- NOTE | 2023-12-24 05:51 | P.PN ---
Subjective Progress Note Date: 12/23/23 73 years old female who presents to the emergency room for lower abdominal fistula drainage, associated with generalized weakness. Patient looks awake alert but tired looking, pale. Feels generally weak. N has mild generalized abdominal pain and tenderness. No rebound tenderness. Blood with malodorous left lower abdominal fistula drainage with fecal material coming out. Patient also with right rotation. Patient also with unstageable sacral pressure ulcer. With some evidence of cellulitis. Patient is mildly confused. But no headache or weakness in upper or lower patient was hypotensive with a blood pressure/42, currently slightly better 96/43. Potassium is low 2.9, WBC elevated 23,000, hemoglobin 7.4. Creatinine 0.7. Liver enzymes unremarkable. CT of the abdomen pelvis showing sigmoid diverticulitis and proctitis. 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 Please refer to the report for more details. Patient was ordered received normal saline boluses. Currently on Normosol at 130 mL/h She received 1 dose of Zosyn and started on Flagyl. We are going to add cefepime for gram-negative coverage. 12/21/2023 Patient is seen and evaluated in follow-up on the regular medical floor. She is currently sitting up in bed. Awake and alert in no acute distress. -- Remains on O2 at 4 L per nasal cannula maintaining O2 saturations in the mid 90s. She is afebrile. Hemodynamically stable. She has normal staying at KVO. --She continues on Unasyn and Eraxis. -White count 7.9. Hemoglobin 7.7. Platelets 601. Sodium 145. Potassium 3.6. Bicarb 32. BUN 18. Creatinine 0.5. Glucose 101. She remains on IV diuretics. She is currently in a -3.6 L balance. 12/22/2023 the patient is seen and evaluated in room at bedside; continues to be afebrile, the patient is on 4 L nasal cannula oxygen and breathing comfortably, the Pt has been complaining of right ear and nasal stuffiness, denies having any chest pain or cough, the patient denies having any abdominal pain no vomiting or any diarrhea has been reported. 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 Patient is on the medical surgical unit with extensive wounds noted to the abdomen including wound VAC on the left groin for a fistula and ostomy with stool noted. Patient with extensive abdominal drainage. Surgical site with umang noted with no significant redness or drainage noted. Patient is maintained on antibiotics with infectious disease following and repeat cultures thus far showing Romelia maintained on antifungals along with antibiotics. Patient sensitive wounds to the decubitus area unstageable on admission and has worsened during hospitalization with extensive tunneling and some drainage noted that is nonpurulent. With surgery following with the need for possible debridement. Repeat CT abdomen is ordered as well per surgery as patient continues to have pain and distention. Patient is currently afebrile with no reports of worsening shortness of breath. Currently rate controlled medications and will continue to monitor closely. Patient has refused hospice and would like to go to rehab. Case management following working on discharge planning and patient will also require insurance authorization. Review of systems: Constitutional: No reports of fatigue, fever, or chills Cardiovascular: No reports of chest pain or palpitations Respiratory: No reports of worsening shortness of breath or cough GI: No reports of nausea, vomiting, or diarrhea, not much oral intake : No reports of dysuria or retention Neurovascular: reports of extreme weakness All medications have been reviewed Physical exam: Gen: This is a 73-year-old female who is awake, alert and oriented x 2-3, ill- appearing, well developed, elderly appearing HEENT: Head is atraumatic, normocephalic. Pupils equal, round. Sclerae is anicteric. NECK: Supple. No JVD. No lymphadenopathy. No thyromegaly. LUNGS: Diminished breath sounds bilaterally otherwise clear to auscultation. No wheezes or rhonchi. No intercostal retractions. HEART: S1, S2 are muffled ABDOMEN: Soft. Distended. bowel sounds are present. No masses. tenderness noted throughout. Surgical dressing is dry and umang noted with no significant redness or drainage noted, ostomy noted with stool in the left, wound VAC noted in the left groin EXTREMITIES: Bilateral lower extremity edema. No calf tenderness. NEUROLOGICAL: Patient is awake, alert and oriented x2-3. Cranial nerves 2 through 12 are grossly intact. Diffusely weak Assessment: Acute sigmoid sigmoid colitis, diverticulitis with proctitis and perforation. With multiple entero-cutaneous and entero-vesical fistulas, including to the left lower abdominal wall. Status post colostomy Septic shock secondary to above, Improved Acute hypoxic respiratory failure requiring intubation and mechanical ventilation. S/p extubation on 12/24. Patient is currently on BiPAP-->4L via NC Left lung collapse secondary to mucous plugging status post bronchoscopy and lavage of left lung. Done on 12/10/2023 and also on 12/15/2023 Klebsiella urinary tract infection New onset A-fib and RVR Acute kidney injury, Improved no more need for dialysis Acute anemia, unknown baseline, chronic microcytic. S/p units of PRBC transfusion pressure ulcer, left upper buttock, present on admission, stage II Unstageable sacral decubitus pressure ulcer, present on admission , significant tunneling, possibly requiring debridement Metabolic encephalopathy, with possible elements of delirium, improving Bilateral adrenal nodule, recommend follow-up CT in 3 months. Hydropic gallbladder with multiple gallstones Anasarca With severe hypoalbuminemia Suspect critical illness polyneuropathy Plan: Patient has been transferred to the medical surgical unit Patient is continued on antibiotics with infectious disease following also maintained on antifungals as culture showing Romelia Wound care reconsulted as patient has extensive decubitus coccyx ulcer that is unstageable with extensive tunneling noted. There is some drainage noted as well and may need debridement. General surgery following will discuss further with Dr. Trivedi if patient is requiring debridement Patient remains off BiPAP and is on 4 L via nasal cannula Continue with wound care and wound VAC in place on the left groin wound with surgery team following closely Patient is being currently on Lasix 40 mg IV daily. Pulmonary following as well Patient is on Eliquis and oral amiodarone for new onset atrial fibrillation with RVR. currently rate controlled DVT prophylaxis GI prophylaxis Due to multiple complex medical issues prognosis is extremely poor and guarded, CODE STATUS DNR/DNI, Patient has declined any further BiPAP, bronchoscopy, reintubation. Patient is refusing hospice at this time The impression and plan of care has been dictated by Irene Israel, Nurse Practitioner as directed. Dr. Sierra MD I have performed a history and examination and MDM of this patient, discussed the same with the dictator, and agree with the dictator's assessment and plan as written ,documented as a scribe. Based on total visit time, I have performed more than 50% of the visit. Objective - Vital Signs Vital signs: Vital Signs Temp 98.2 F 12/23/23 12:02 Pulse 83 12/23/23 12:02 Resp 20 12/23/23 12:02 BP 121/64 12/23/23 12:02 Pulse Ox 100 12/23/23 12:02 FiO2 40 12/17/23 11:28 Intake & Output 12/22/23 12/23/23 12/23/23 18:59 06:59 18:59 Output Total 1850 1550 Balance -1850 -1550 Weight 83.5 kg Output: Urine 1850 1550 Other: Voiding Method Indwelling Catheter Indwelling Catheter Indwelling Catheter ABP, PAP, CO, CI - Last Documented Arterial Blood Pressure 95/53 - Labs CBC & Chem 7: 12/21/23 05:48 12/21/23 05:48
--- NOTE | 2023-12-24 10:05 | P.PN ---
Subjective Progress Note Date: 12/24/23 Principal diagnosis: This is a 73-year-old patient with past medical history significant for right below the knee amputation. Patient is being seen for unstageable pressure ulcer to the left buttocks. Ulceration has significant amount of eschar in place with tunneling noted at 3 cm. Patient does not know how long the ulceration has been there. She is a poor historian. 12/24/2023: Patient is scheduled for surgery on the . We will continue with honey to the site. Review Of Systems: Constitutional: No fever, no chills, no night sweats. No weight change. No weakness, fatigue or lethargy. No daytime sleepiness. Integumentary:reports wounds, no lesions. No rash or pruritus. No unusual bruising. No change in hair or nails. Physical exam: General Appearance: Alert, cooperative, no distress, appears stated age. Skin: See HPI all other Skin color, texture, tugor normal, no rashes or lesions. Neurologic: Alert oriented x3 Assessment: 1. Unstageable pressure ulcer left buttocks Plan: 1. Apply honey gel and bordered foam to the site. Patient would benefit from debridement to remove eschar and possible negative pressure wound VAC placement. Prognosis is guarded. Thank you for the consultation any questions please contact the wound care center DNP note has been reviewed and discussed with Dr. Hines and the impression and plan of care has been directed as dictated. Objective - Vital Signs Vital signs: Vital Signs Temp 97.7 F 12/24/23 07:14 Pulse 81 12/24/23 07:14 Resp 16 12/24/23 07:14 BP 108/63 12/24/23 07:14 Pulse Ox 98 12/24/23 09:57 FiO2 40 12/17/23 11:28 Intake & Output 12/23/23 12/24/23 12/24/23 18:59 06:59 18:59 Output Total 1550 650 Balance -1550 -650 Weight 83 kg Output: Urine 1550 500 Stool 150 Other: Voiding Method Indwelling Catheter Indwelling Catheter Indwelling Catheter ABP, PAP, CO, CI - Last Documented Arterial Blood Pressure 95/53 - Labs CBC & Chem 7: 12/21/23 05:48 12/21/23 05:48 Assessment and Plan (1) Unstageable pressure ulcer of left buttock Current Visit: Yes Status: Acute Code(s): L89.320 - PRESSURE ULCER OF LEFT BUTTOCK, UNSTAGEABLE SNOMED Code(s): 31894577105764143
[2023-12-24 11:23] LABS: Basophils # (A) 0.08 X 10*3/uL (0.00-0.10); Basophils % (A) 1.1 %; Eosinophils # (A) 0.25 X 10*3/uL (0.04-0.35); Eosinophils % (A) 3.3 %; HCT 28.1 % (37.2-46.3); HGB 8.4 g/dL (12.0-15.0); Lymphocytes # (A) 0.79 X 10*3/uL (0.90-5.00); Lymphocytes % (A) 10.4 %; MCH 25.7 pg (27.0-32.0); MCHC 29.9 g/dL (32.0-37.0); MCV 85.9 FL (80.0-97.0); Mean Platelet Volume 9.3 FL (9.5-12.2); Monocytes # (A) 0.63 X 10*3/uL (0.20-1.00); Monocytes % (A) 8.3 %; NRBC Per 100 WBC 0 X 10*3/uL (0.00-0.01); Neutrophils # (A) 5.79 X 10*3/uL (1.80-7.70); Neutrophils % (A) 76.2 %; Platelet Count 676 X 10*3/uL (140-440); RBC 3.27 X 10*6/uL (4.10-5.20); RDW 23.9 % (11.5-14.5); WBC 7.59 X 10*3/uL (4.50-10.00)
[2023-12-24 12:19] LABS: Blood Urea Nitrogen 12.1 mg/dL (9.0-27.0); Carbon Dioxide 33.3 mmol/L (21.6-31.8); Chloride 100 mmol/L (96-109); Glucose 85 mg/dL (70-110); Magnesium 1.7 mg/dL (1.5-2.4); Potassium 3.7 mmol/L (3.5-5.5); Sodium 142 mmol/L (135-145)
--- NOTE | 2023-12-24 14:11 | P.PN ---
Subjective Progress Note Date: 12/24/23 CHIEF COMPLAINT: Perforated diverticular disease with fistulization to the skin HISTORY OF PRESENT ILLNESS: The patient is a 26-gprl-urk-year-old female status post exploratory laparotomy, Magaña's procedure for colocutaneous fistula and septic shock. Patient is lying in bed comfortably. She is tolerating low fiber diet. Wound VAC was changed yesterday. Afebrile. WBC 7.9 Hgb 8.4 platelets elevated at 676 CT scan abdomen and pelvis reviewed with Dr. Felipe. No evidence of free air. Evidence of anasarca. Diffuse ascites. Cholelithiasis noted. Also noted bilateral pleural effusions. PHYSICAL EXAM: VITAL SIGNS: Reviewed GENERAL: no acute distress. HEENT: No sclera icterus. Extraocular movements grossly intact. Moist buccal mucosa. Head is atraumatic, normocephalic. Hears conversational speech. No nasal drainage. NECK: Supple without lymphadenopathy. CHEST: Non-labored respirations and equal bilateral excursions. CARDIOVASCULAR: Palpable 2+ radial pulses. ABDOMEN: Soft. Nondistended. Midline incision with Optifoam dressing clean dry and intact stoma beefy red. Stool in ostomy bag. Left lower abdomen wound VAC intact. MUSCULOSKELETAL: No clubbing or cyanosis. NEUROLOGIC: No focal or lateralizing signs. Cranial nerves II through XII grossly intact. Skin: Large sacral decubitus ulcer, unstageable, tunneling noted. Eschar tissue present. Granulation tissue present ASSESSMENT: 1. Septic shock 2. 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 Lack of general medical care 4. Complicated left groin wound, 4 cm 5. Intermesenteric abscess, pelvis 6. Left inguinal hernia 7. Atrial fibrillation with rapid ventricular response 8. Collapsed left lung secondary to mucous plugging with prior bronchoscopy x 2 9. Large sacral decubitus ulcer, unstageable 10. Thrombocytosis 11. Cholelithiasis noted on CAT scan 12. Severe protein calorie malnutrition PLAN: -Patient scheduled for excisional debridement of sacral decubitus ulcer on December 26, [address] Felipe -Place Eliquis on Hold for surgical intervention -CT scan findings reviewed with Dr. Felipe -Consult interventional radiology for drainage of abdominal ascites. Will send body fluid for culture -Check LFTs due to evidence of gallstones on CT -Continue supportive care -Continue low fiber diet. Patient and family are aware she is high risk for aspiration -Continue Wound VAC -Continue pain management -Continue antibiotics and antifungal per ID service Physician Informatics Educator note has been reviewed by physician. Signing provider agrees with the documented findings, assessment, and plan of care. Objective - Vital Signs Vital signs: Vital Signs Temp 98 F 12/24/23 12:49 Pulse 91 12/24/23 12:49 Resp 16 12/24/23 12:49 BP 113/62 12/24/23 12:49 Pulse Ox 100 12/24/23 12:49 FiO2 40 12/17/23 11:28 Intake & Output 12/23/23 12/24/23 12/24/23 18:59 06:59 18:59 Output Total 2514 092 1881 Balance -1550 -650 -1000 Weight 83 kg Output: Urine 1550 500 700 Stool 150 300 Other: Voiding Method Indwelling Catheter Indwelling Catheter Indwelling Catheter ABP, PAP, CO, CI - Last Documented Arterial Blood Pressure 95/53 - Labs CBC & Chem 7: 12/24/23 06:57 12/24/23 06:57 Labs: Abnormal Lab Results - Last 24 Hours (Table) 12/24/23 12/24/23 Range/Units 06:57 06:57 RBC 3.27 L (4.10-5.20) X 10*6/uL Hgb 8.4 L (12.0-15.0) g/dL Hct 28.1 L (37.2-46.3) % MCH 25.7 L (27.0-32.0) pg MCHC 29.9 L (32.0-37.0) g/dL RDW 23.9 H (11.5-14.5) % Plt Count 676 H (140-440) X 10*3/uL MPV 9.3 L (9.5-12.2) FL Immature Gran # 0.05 H (0.00-0.04) X 10*3/uL Lymphocytes # 0.79 L (0.90-5.00) X 10*3/uL Carbon Dioxide 33.3 H (21.6-31.8) mmol/L Creatinine 0.5 L (0.6-1.5) mg/dL BUN/Creatinine Ratio 24.20 H (12.00-20.00) Ratio Calcium 8.0 L (8.7-10.3) mg/dL
--- NOTE | 2023-12-24 14:22 | P.PN ---
Subjective Progress Note Date: 12/24/23 Principal diagnosis: Reason for follow-up is complicated diverticulitis with colocutaneous fistula Patient is a 73-year-old female who was brought into the ER at [facility] for the patient complaining of generalized weakness patient noticed to have sacral pressure ulcer and also complicate diverticulitis with a fistula to the left lower abdominal wall.Patient was taken to the OR on 12/06/2023 and this patient was status post exploratory laparotomy with sigmoid colectomy takedown of the colocutaneous fistula left inguinal hernia repair and peritoneal lavage. On today's evaluation that is 12/24/2023, patient has been afebrile, patient is breathing comfortably and is currently on 4 L nasal cannula oxygen, patient denies having any significant cough no chest pain shortness of breath, patient denies nausea vomiting or diarrhea and no abdominal pain, patient has been mostly complaining of pain to the lower back and bottom area. Patient white count is 7.59, creatinine 0.5 Objective - Vital Signs Vital signs: Vital Signs Temp 98 F 12/24/23 12:49 Pulse 91 12/24/23 12:49 Resp 16 12/24/23 12:49 BP 113/62 12/24/23 12:49 Pulse Ox 100 12/24/23 12:49 FiO2 40 12/17/23 11:28 Intake & Output 12/23/23 12/24/23 12/24/23 18:59 06:59 18:59 Output Total 4825 516 5017 Balance -1550 -650 -1000 Weight 83 kg Output: Urine 1550 500 700 Stool 150 300 Other: Voiding Method Indwelling Catheter Indwelling Catheter Indwelling Catheter ABP, PAP, CO, CI - Last Documented Arterial Blood Pressure 95/53 - Exam GENERAL DESCRIPTION: An elderly female lying in bed in no distress RESPIRATORY SYSTEM: Unlabored breathing , decreased breath sounds at bases HEART: S1 S2 regular rate and rhythm , ABDOMEN: Soft , no tenderness EXTREMITIES: No edema feet - Labs CBC & Chem 7: 12/24/23 06:57 12/24/23 06:57 Labs: Abnormal Lab Results - Last 24 Hours (Table) 12/24/23 12/24/23 Range/Units 06:57 06:57 RBC 3.27 L (4.10-5.20) X 10*6/uL Hgb 8.4 L (12.0-15.0) g/dL Hct 28.1 L (37.2-46.3) % MCH 25.7 L (27.0-32.0) pg MCHC 29.9 L (32.0-37.0) g/dL RDW 23.9 H (11.5-14.5) % Plt Count 676 H (140-440) X 10*3/uL MPV 9.3 L (9.5-12.2) FL Immature Gran # 0.05 H (0.00-0.04) X 10*3/uL Lymphocytes # 0.79 L (0.90-5.00) X 10*3/uL Carbon Dioxide 33.3 H (21.6-31.8) mmol/L Creatinine 0.5 L (0.6-1.5) mg/dL BUN/Creatinine Ratio 24.20 H (12.00-20.00) Ratio Calcium 8.0 L (8.7-10.3) mg/dL Assessment and Plan (1) Diverticulitis of intestine, part unspecified, without perforation or abscess without bleeding Current Visit: Yes Status: Acute Code(s): K57.92 - DVTRCLI OF INTEST, PART UNSP, W/O PERF OR ABSCESS W/O BLEED SNOMED Code(s): 642846402 (2) Leukocytosis Current Visit: Yes Status: Acute Code(s): D72.829 - ELEVATED WHITE BLOOD CELL COUNT, UNSPECIFIED SNOMED Code(s): 099892909 (3) Sepsis Current Visit: Yes Status: Acute Code(s): A41.9 - SEPSIS, UNSPECIFIED ORGANISM SNOMED Code(s): 75745969 (4) Gram-negative bacteremia Current Visit: Yes Status: Acute Code(s): R78.81 - BACTEREMIA SNOMED Code(s): 830906186909 Plan: 1patient with complicated diverticulitis with evidence of fistulous communication to the skin left lower quadrant area and concern for possible extension to the bladder, will need to cover for the polymicrobial jessie associated with such condition including enteric gram-negative both aerobes and anaerobes 2-patient also have a sacral pressure ulcer but no significant surrounding cellulitis, wound care has been consulted continue local wound care per them 3Fusobacterium 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 that is beta-lactamase negative repeat blood culture has been negative so far 3-patient is status post extensive surgery including 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 5patient sputum culture grew Romelia bronchoscopy culture also grew Romelia as well as abdominal culture growing Romelia albicans 6-patient remains to be afebrile and the patient white normalized, patient did have elevated platelet count CT abdominal pelvis did show worsening anasarca localized fluid collection within the left mid abdominal wall and worsening of the sacral ulcer exposing the bony surface of the coccyx 7-patient to continue with Unasyn and Eraxis, await surgical debridement of the sacral wound and deep culture continue local care per the wound care team Dictation was produced using [employer] dictation software. please excuse any grammatical, word or spelling errors.
[2023-12-25] MEDS ORDERED: Magnesium Replacement Protocol 1 EACH MISC MISCELLANE PRN (05:54)
--- NOTE | 2023-12-25 06:26 | P.PN ---
Subjective Progress Note Date: 12/24/23 73 years old female who presents to the emergency room for lower abdominal fistula drainage, associated with generalized weakness. Patient looks awake alert but tired looking, pale. Feels generally weak. N has mild generalized abdominal pain and tenderness. No rebound tenderness. Blood with malodorous left lower abdominal fistula drainage with fecal material coming out. Patient also with right rotation. Patient also with unstageable sacral pressure ulcer. With some evidence of cellulitis. Patient is mildly confused. But no headache or weakness in upper or lower patient was hypotensive with a blood pressure/42, currently slightly better 96/43. Potassium is low 2.9, WBC elevated 23,000, hemoglobin 7.4. Creatinine 0.7. Liver enzymes unremarkable. CT of the abdomen pelvis showing sigmoid diverticulitis and proctitis. 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 Please refer to the report for more details. Patient was ordered received normal saline boluses. Currently on Normosol at 130 mL/h She received 1 dose of Zosyn and started on Flagyl. We are going to add cefepime for gram-negative coverage. 12/21/2023 Patient is seen and evaluated in follow-up on the regular medical floor. She is currently sitting up in bed. Awake and alert in no acute distress. -- Remains on O2 at 4 L per nasal cannula maintaining O2 saturations in the mid 90s. She is afebrile. Hemodynamically stable. She has normal staying at KVO. --She continues on Unasyn and Eraxis. -White count 7.9. Hemoglobin 7.7. Platelets 601. Sodium 145. Potassium 3.6. Bicarb 32. BUN 18. Creatinine 0.5. Glucose 101. She remains on IV diuretics. She is currently in a -3.6 L balance. 12/22/2023 the patient is seen and evaluated in room at bedside; continues to be afebrile, the patient is on 4 L nasal cannula oxygen and breathing comfortably, the Pt has been complaining of right ear and nasal stuffiness, denies having any chest pain or cough, the patient denies having any abdominal pain no vomiting or any diarrhea has been reported. 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 Patient is on the medical surgical unit with extensive wounds noted to the abdomen including wound VAC on the left groin for a fistula and ostomy with stool noted. Patient with extensive abdominal drainage. Surgical site with umang noted with no significant redness or drainage noted. Patient is maintained on antibiotics with infectious disease following and repeat cultures thus far showing Romelia maintained on antifungals along with antibiotics. Patient sensitive wounds to the decubitus area unstageable on admission and has worsened during hospitalization with extensive tunneling and some drainage noted that is nonpurulent. With surgery following with the need for possible debridement. Repeat CT abdomen is ordered as well per surgery as patient continues to have pain and distention. Patient is currently afebrile with no reports of worsening shortness of breath. Currently rate controlled medications and will continue to monitor closely. Patient has refused hospice and would like to go to rehab. Case management following working on discharge planning and patient will also require insurance authorization. 12/24/2023 Patient is seen in follow-up today with general surgery following. Patient underwent repeat CT abdomen showing significant ascites and interventional rad iology being for possible drainage and recommend fluid analysis. Infectious disease following patient is maintained on antibiotics along with antifungals and will continue. Patient with extensive unstageable sacral decubitus ulcer in need of debridement and tentatively scheduled for debridement with Dr. Trivedi on 12/26/2023. Hold anticoagulation for the procedure. Patient is currently afebrile with no reported chest pain or worsening shortness of breath. Encouraged oral intake and recommend PT/OT therapy daily. Patient is significantly weak and has had prolonged hospitalization. Plans on going to [facility] for continued ability. Case management is following as patient will require insurance authorization. Review of systems: Constitutional: No reports of fatigue, fever, or chills Cardiovascular: No reports of chest pain or palpitations Respiratory: No reports of worsening shortness of breath or cough GI: No reports of nausea, vomiting, or diarrhea, not much oral intake : No reports of dysuria or retention Neurovascular: reports of extreme weakness All medications have been reviewed Physical exam: Gen: This is a 73-year-old female who is awake, alert and oriented x 2-3, ill- appearing, well developed, elderly appearing HEENT: Head is atraumatic, normocephalic. Pupils equal, round. Sclerae is anicteric. NECK: Supple. No JVD. No lymphadenopathy. No thyromegaly. LUNGS: Diminished breath sounds bilaterally otherwise clear to auscultation. No wheezes or rhonchi. No intercostal retractions. HEART: S1, S2 are muffled ABDOMEN: Soft. Distended. bowel sounds are present. No masses. tenderness noted throughout. Surgical dressing is dry and umang noted with no significant redness or drainage noted, ostomy noted with stool in the left, wound VAC noted in the left groin EXTREMITIES: Bilateral lower extremity edema. No calf tenderness. NEUROLOGICAL: Patient is awake, alert and oriented x2-3. Cranial nerves 2 through 12 are grossly intact. Diffusely weak Assessment: Acute sigmoid sigmoid colitis, diverticulitis with proctitis and perforation. With multiple entero-cutaneous and entero-vesical fistulas, including to the left lower abdominal wall. Status post colostomy Septic shock secondary to above, Improved Acute hypoxic respiratory failure requiring intubation and mechanical ventilation. S/p extubation on 12/24. Patient is currently on BiPAP-->4L via NC Left lung collapse secondary to mucous plugging status post bronchoscopy and lavage of left lung. Done on 12/10/2023 and also on 12/15/2023 Klebsiella urinary tract infection New onset A-fib and RVR Acute kidney injury, Improved no more need for dialysis Acute anemia, unknown baseline, chronic microcytic. S/p units of PRBC transfusion pressure ulcer, left upper buttock, present on admission, stage II Unstageable sacral decubitus pressure ulcer, present on admission , significant tunneling, possibly requiring debridement Metabolic encephalopathy, with possible elements of delirium, improving Bilateral adrenal nodule, recommend follow-up CT in 3 months. Hydropic gallbladder with multiple gallstones Anasarca With severe hypoalbuminemia Suspect critical illness polyneuropathy Plan: Patient is continued on antibiotics with infectious disease following also maintained on antifungals as culture showing Romelia Wound care reconsulted as patient has extensive decubitus coccyx ulcer that is unstageable with extensive tunneling noted. There is some drainage noted as well and may need debridement. General surgery following with plans for debridement on 12/[address] Trivedi IR consulted for possible ascites drainage and will send for fluid analysis Patient remains off BiPAP and is on 4 L via nasal cannula Continue with wound care and wound VAC in place on the left groin wound with surgery team following closely Patient is being currently on Lasix 40 mg IV daily. Pulmonary following as well Patient is on Eliquis and oral amiodarone for new onset atrial fibrillation with RVR. currently rate controlled. HOLD eliquis for debridement on 12/25 DVT prophylaxis GI prophylaxis Due to multiple complex medical issues prognosis is extremely poor and guarded, CODE STATUS DNR/DNI, Patient has declined any further BiPAP, bronchoscopy, reintubation. Patient is refusing hospice at this time The impression and plan of care has been dictated by Irene Israel, Nurse Practitioner as directed. Dr. Sierra MD I have performed a history and examination and MDM of this patient, discussed the same with the dictator, and agree with the dictator's assessment and plan as written ,documented as a scribe. Based on total visit time, I have performed more than 50% of the visit. Objective - Vital Signs Vital signs: Vital Signs Temp 98.2 F 12/25/23 01:35 Pulse 81 12/25/23 01:35 Resp 16 12/25/23 01:35 BP 126/74 12/25/23 01:35 Pulse Ox 99 12/25/23 01:35 FiO2 40 12/17/23 11:28 Intake & Output 12/24/23 12/24/23 12/25/23 06:59 18:59 06:59 Output Total 650 2450 Balance -650 -2450 Weight 83 kg Output: Urine 500 2150 Stool 150 300 Other: Voiding Method Indwelling Catheter Indwelling Catheter Indwelling Catheter ABP, PAP, CO, CI - Last Documented Arterial Blood Pressure 95/53 - Labs CBC & Chem 7: 12/24/23 06:57 12/24/23 06:57 Labs: Abnormal Lab Results - Last 24 Hours (Table) 12/24/23 12/24/23 Range/Units 06:57 06:57 RBC 3.27 L (4.10-5.20) X 10*6/uL Hgb 8.4 L (12.0-15.0) g/dL Hct 28.1 L (37.2-46.3) % MCH 25.7 L (27.0-32.0) pg MCHC 29.9 L (32.0-37.0) g/dL RDW 23.9 H (11.5-14.5) % Plt Count 676 H (140-440) X 10*3/uL MPV 9.3 L (9.5-12.2) FL Immature Gran # 0.05 H (0.00-0.04) X 10*3/uL Lymphocytes # 0.79 L (0.90-5.00) X 10*3/uL Carbon Dioxide 33.3 H (21.6-31.8) mmol/L Creatinine 0.5 L (0.6-1.5) mg/dL BUN/Creatinine Ratio 24.20 H (12.00-20.00) Ratio Calcium 8.0 L (8.7-10.3) mg/dL
[2023-12-25 10:05] LABS: INR 1.1 (<1.2); Prothrombin Time 11.5 sec (10.0-12.5)
[2023-12-25] MEDS: MAGNESIUM SULFATE-D5W PMX 1 GM in DEXTROSE/WATER 1 100ML.BAG IVPB ONE (11:05)
[2023-12-25] MEDS: POTASSIUM CHLORIDE ER 20 MEQ TAB.ER PO SCH (11:05)
--- NOTE | 2023-12-25 11:26 | US ---
Ultrasound-guided paracentesis. DATE OF EXAM: 12/25/2023 CLINICAL HISTORY: Ascites The procedure was discussed with the patient. The risks, complications, benefits, and alternatives we re discussed and any questions were answered. Informed consent was obtained. The patient was placed s upine on the ultrasound table and prepped and draped in the usual sterile fashion. All elements of maximal barrier technique were utilized. Under ultrasound guidance, access into the right lower quadrant was obtained, via the paracentesis catheter system and direct ultrasound guidanc e. Approximately 2 liters of straw-colored fluid was removed. The patient was stable throughout the proc edure and remained stable upon discharge from Department of Radiology. IMPRESSION: Successful paracentesis under ultrasound guidance.
[2023-12-25 11:54] LABS: Basophils # (A) 0.05 X 10*3/uL (0.00-0.10); Basophils % (A) 0.6 %; Eosinophils # (A) 0.35 X 10*3/uL (0.04-0.35); Eosinophils % (A) 4.3 %; HCT 26.1 % (37.2-46.3); HGB 7.9 g/dL (12.0-15.0); Lymphocytes # (A) 0.82 X 10*3/uL (0.90-5.00); Lymphocytes % (A) 10.1 %; MCH 25.8 pg (27.0-32.0); MCHC 30.3 g/dL (32.0-37.0); MCV 85.3 FL (80.0-97.0); Mean Platelet Volume 9.4 FL (9.5-12.2); Monocytes % (A) 9.9 %; NRBC Per 100 WBC 0 X 10*3/uL (0.00-0.01); Neutrophils # (A) 6.05 X 10*3/uL (1.80-7.70); Neutrophils % (A) 74.5 %; Platelet Count 668 X 10*3/uL (140-440); RBC 3.06 X 10*6/uL (4.10-5.20); RDW 23.6 % (11.5-14.5); WBC 8.12 X 10*3/uL (4.50-10.00)
[2023-12-25 12:29] LABS: ALT 10 U/L (8-44); AST 19 U/L (13-35); Albumin/Globulin Ratio 0.87 Ratio (1.60-3.17); Alkaline Phosphatase 91 U/L (41-126); BUN/Creat Ratio 27.25 Ratio (12.00-20.00); Blood Urea Nitrogen 10.9 mg/dL (9.0-27.0); Carbon Dioxide 34.6 mmol/L (21.6-31.8); Chloride 101 mmol/L (96-109); Globulin 2.3 g/dL (1.6-3.3); Glucose 102 mg/dL (70-110); Magnesium 1.8 mg/dL (1.5-2.4); Potassium 3.2 mmol/L (3.5-5.5); Sodium 143 mmol/L (135-145); Total Bilirubin <0.2 mg/dL (0.3-1.2); Total Protein 4.3 g/dL (6.2-8.2)
--- NOTE | 2023-12-25 15:53 | P.PN ---
Subjective Progress Note Date: 12/25/23 CHIEF COMPLAINT: Perforated diverticular disease with fistulization to the skin HISTORY OF PRESENT ILLNESS: The patient is a [id number]-year-old female status post exploratory laparotomy, Magaña's procedure for colocutaneous fistula and septic shock. Patient is lying in bed comfortably. She is tolerating low fiber diet. Patient had paracentesis completed today with 2 L of fluid removed. Culture obtained. Afebrile. WBC 8.12 Hgb 7.9 potassium 3.2 and being replaced magnesium 1.[address] scan abdomen and pelvis reviewed with Dr. Felipe. No evidence of free air. Evidence of anasarca. Diffuse ascites. Cholelithiasis noted. Also noted bilateral pleural effusions. PHYSICAL EXAM: VITAL SIGNS: Reviewed GENERAL: no acute distress. HEENT: No sclera icterus. Extraocular movements grossly intact. Moist buccal mucosa. Head is atraumatic, normocephalic. Hears conversational speech. No nasal drainage. NECK: Supple without lymphadenopathy. CHEST: Non-labored respirations and equal bilateral excursions. CARDIOVASCULAR: Palpable 2+ radial pulses. ABDOMEN: Soft. Nondistended. Midline incision with Optifoam dressing clean dry and intact stoma beefy red. Stool in ostomy bag. Left lower abdomen wound VAC intact. MUSCULOSKELETAL: No clubbing or cyanosis. NEUROLOGIC: No focal or lateralizing signs. Cranial nerves II through XII grossly intact. Skin: Large sacral decubitus ulcer, unstageable, tunneling noted. Eschar tissue present. Granulation tissue present ASSESSMENT: 1. Septic shock 2. 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 Lack of general medical care 4. Complicated left groin wound, 4 cm 5. Intermesenteric abscess, pelvis 6. Left inguinal hernia 7. Atrial fibrillation with rapid ventricular response 8. Collapsed left lung secondary to mucous plugging with prior bronchoscopy x 2 9. Large sacral decubitus ulcer, unstageable 10. Thrombocytosis 11. Cholelithiasis noted on CAT scan. LFTs normal 12. Severe protein calorie malnutrition PLAN: -Patient scheduled for excisional debridement of sacral decubitus ulcer on December 26, [address] Felipe -N.p.o. after midnight -Hold Eliquis -Follow-up on ascites fluid culture results -Continue Wound VAC -Continue pain management -Continue antibiotics and antifungal per ID service Physician Retail Receiving Clerk note has been reviewed by physician. Signing provider agrees with the documented findings, assessment, and plan of care. Objective - Vital Signs Vital signs: Vital Signs Temp 98.1 F 12/25/23 08:01 Pulse 74 12/25/23 10:40 Resp 12 12/25/23 10:40 BP 106/71 12/25/23 10:40 Pulse Ox 100 12/25/23 10:40 FiO2 40 12/17/23 11:28 Intake & Output 12/24/23 12/25/23 12/25/23 18:59 06:59 18:59 Output Total 2450 Balance -2450 Weight 83 kg Output: Urine 2150 Stool 300 Other: Voiding Method Indwelling Catheter Indwelling Catheter ABP, PAP, CO, CI - Last Documented Arterial Blood Pressure 95/53 - Labs CBC & Chem 7: 12/25/23 06:53 12/25/23 06:53 Labs: Abnormal Lab Results - Last 24 Hours (Table) 12/25/23 12/25/23 Range/Units 06:53 06:53 RBC 3.06 L (4.10-5.20) X 10*6/uL Hgb 7.9 L (12.0-15.0) g/dL Hct 26.1 L (37.2-46.3) % MCH 25.8 L (27.0-32.0) pg MCHC 30.3 L (32.0-37.0) g/dL RDW 23.6 H (11.5-14.5) % Plt Count 668 H (140-440) X 10*3/uL MPV 9.4 L (9.5-12.2) FL Immature Gran # 0.05 H (0.00-0.04) X 10*3/uL Lymphocytes # 0.82 L (0.90-5.00) X 10*3/uL Potassium 3.2 L (3.5-5.5) mmol/L Carbon Dioxide 34.6 H (21.6-31.8) mmol/L Creatinine 0.4 L (0.6-1.5) mg/dL BUN/Creatinine Ratio 27.25 H (12.00-20.00) Ratio Calcium 8.0 L (8.7-10.3) mg/dL Total Bilirubin <0.2 L (0.3-1.2) mg/dL Total Protein 4.3 L (6.2-8.2) g/dL Albumin 2.0 L (3.8-4.9) g/dL Albumin/Globulin Ratio 0.87 L (1.60-3.17) Ratio
--- NOTE | 2023-12-25 23:47 | P.PN ---
Subjective Progress Note Date: 12/25/23 Principal diagnosis: Reason for follow-up is complicated diverticulitis with colocutaneous fistula Patient is a 73-year-old female who was brought into the ER at [facility] for the patient complaining of generalized weakness patient noticed to have sacral pressure ulcer and also complicate diverticulitis with a fistula to the left lower abdominal wall.Patient was taken to the OR on 12/06/2023 and this patient was status post exploratory laparotomy with sigmoid colectomy takedown of the colocutaneous fistula left inguinal hernia repair and peritoneal lavage. On today's evaluation that is 12/25/2023,the patient denies any fever or any chills, patient is breathing comfortably on 4 L nasal cannula oxygen, the patient denies chest pain shortness of breath and no significant cough, patient denies abdominal pain, no nausea vomiting and did have output in the colostomy complaining of mostly pain to the lower back wound area. Patient white count is 8.12 creatinine 0.4 Objective - Vital Signs Vital signs: Vital Signs Temp 98.1 F 12/25/23 08:01 Pulse 74 12/25/23 10:40 Resp 12 12/25/23 10:40 BP 106/71 12/25/23 10:40 Pulse Ox 100 12/25/23 10:40 FiO2 40 12/17/23 11:28 Intake & Output 12/24/23 12/25/23 12/25/23 18:59 06:59 18:59 Output Total 2450 Balance -2450 Weight 83 kg Output: Urine 2150 Stool 300 Other: Voiding Method Indwelling Catheter Indwelling Catheter ABP, PAP, CO, CI - Last Documented Arterial Blood Pressure 95/53 - Exam GENERAL DESCRIPTION: An elderly female lying in bed in no distress RESPIRATORY SYSTEM: Unlabored breathing , decreased breath sounds at bases HEART: S1 S2 regular rate and rhythm , ABDOMEN: Soft , no tenderness EXTREMITIES: No edema feet - Labs CBC & Chem 7: 12/25/23 06:53 12/25/23 06:53 Labs: Abnormal Lab Results - Last 24 Hours (Table) 12/25/23 12/25/23 Range/Units 06:53 06:53 RBC 3.06 L (4.10-5.20) X 10*6/uL Hgb 7.9 L (12.0-15.0) g/dL Hct 26.1 L (37.2-46.3) % MCH 25.8 L (27.0-32.0) pg MCHC 30.3 L (32.0-37.0) g/dL RDW 23.6 H (11.5-14.5) % Plt Count 668 H (140-440) X 10*3/uL MPV 9.4 L (9.5-12.2) FL Immature Gran # 0.05 H (0.00-0.04) X 10*3/uL Lymphocytes # 0.82 L (0.90-5.00) X 10*3/uL Potassium 3.2 L (3.5-5.5) mmol/L Carbon Dioxide 34.6 H (21.6-31.8) mmol/L Creatinine 0.4 L (0.6-1.5) mg/dL BUN/Creatinine Ratio 27.25 H (12.00-20.00) Ratio Calcium 8.0 L (8.7-10.3) mg/dL Total Bilirubin <0.2 L (0.3-1.2) mg/dL Total Protein 4.3 L (6.2-8.2) g/dL Albumin 2.0 L (3.8-4.9) g/dL Albumin/Globulin Ratio 0.87 L (1.60-3.17) Ratio Assessment and Plan (1) Diverticulitis of intestine, part unspecified, without perforation or abscess without bleeding Current Visit: Yes Status: Acute Code(s): K57.92 - DVTRCLI OF INTEST, PART UNSP, W/O PERF OR ABSCESS W/O BLEED SNOMED Code(s): 402500537 (2) Leukocytosis Current Visit: Yes Status: Acute Code(s): D72.829 - ELEVATED WHITE BLOOD CELL COUNT, UNSPECIFIED SNOMED Code(s): 715036060 (3) Sepsis Current Visit: Yes Status: Acute Code(s): A41.9 - SEPSIS, UNSPECIFIED ORGANISM SNOMED Code(s): 38108161 (4) Gram-negative bacteremia Current Visit: Yes Status: Acute Code(s): R78.81 - BACTEREMIA SNOMED Code(s): 619151986164 Plan: 1patient with complicated diverticulitis with evidence of fistulous communication to the skin left lower quadrant area and concern for possible extension to the bladder, will need to cover for the polymicrobial jessie associated with such condition including enteric gram-negative both aerobes and anaerobes 2-patient also have a sacral pressure ulcer but no significant surrounding cellulitis, wound care has been consulted continue local wound care per them 3Fusobacterium 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 that is beta-lactamase negative repeat blood culture has been negative so far 3-patient is status post extensive surgery including 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 5patient sputum culture grew Romelia bronchoscopy culture also grew Romelia as well as abdominal culture growing Romelia albicans 6-patient remains to be afebrile and the patient white normalized, patient did have elevated platelet count CT abdominal pelvis did show worsening anasarca localized fluid collection within the left mid abdominal wall and worsening of the sacral ulcer exposing the bony surface of the coccyx, patient is currently waiting for debridement of the sacral wound and deep culture 7-patient to continue with Unasyn and Eraxis, and monitor clinical course closely Dictation was produced using [employer] dictation software. please excuse any grammatical, word or spelling errors. Time with Patient: Less than 30
--- NOTE | 2023-12-26 06:37 | P.PN ---
Subjective Progress Note Date: 12/25/23 73 years old female who presents to the emergency room for lower abdominal fistula drainage, associated with generalized weakness. Patient looks awake alert but tired looking, pale. Feels generally weak. N has mild generalized abdominal pain and tenderness. No rebound tenderness. Blood with malodorous left lower abdominal fistula drainage with fecal material coming out. Patient also with right rotation. Patient also with unstageable sacral pressure ulcer. With some evidence of cellulitis. Patient is mildly confused. But no headache or weakness in upper or lower patient was hypotensive with a blood pressure/42, currently slightly better 96/43. Potassium is low 2.9, WBC elevated 23,000, hemoglobin 7.4. Creatinine 0.7. Liver enzymes unremarkable. CT of the abdomen pelvis showing sigmoid diverticulitis and proctitis. 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 Please refer to the report for more details. Patient was ordered received normal saline boluses. Currently on Normosol at 130 mL/h She received 1 dose of Zosyn and started on Flagyl. We are going to add cefepime for gram-negative coverage. 12/21/2023 Patient is seen and evaluated in follow-up on the regular medical floor. She is currently sitting up in bed. Awake and alert in no acute distress. -- Remains on O2 at 4 L per nasal cannula maintaining O2 saturations in the mid 90s. She is afebrile. Hemodynamically stable. She has normal staying at KVO. --She continues on Unasyn and Eraxis. -White count 7.9. Hemoglobin 7.7. Platelets 601. Sodium 145. Potassium 3.6. Bicarb 32. BUN 18. Creatinine 0.5. Glucose 101. She remains on IV diuretics. She is currently in a -3.6 L balance. 12/22/2023 the patient is seen and evaluated in room at bedside; continues to be afebrile, the patient is on 4 L nasal cannula oxygen and breathing comfortably, the Pt has been complaining of right ear and nasal stuffiness, denies having any chest pain or cough, the patient denies having any abdominal pain no vomiting or any diarrhea has been reported. 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 Patient is on the medical surgical unit with extensive wounds noted to the abdomen including wound VAC on the left groin for a fistula and ostomy with stool noted. Patient with extensive abdominal drainage. Surgical site with umang noted with no significant redness or drainage noted. Patient is maintained on antibiotics with infectious disease following and repeat cultures thus far showing Romelia maintained on antifungals along with antibiotics. Patient sensitive wounds to the decubitus area unstageable on admission and has worsened during hospitalization with extensive tunneling and some drainage noted that is nonpurulent. With surgery following with the need for possible debridement. Repeat CT abdomen is ordered as well per surgery as patient continues to have pain and distention. Patient is currently afebrile with no reports of worsening shortness of breath. Currently rate controlled medications and will continue to monitor closely. Patient has refused hospice and would like to go to rehab. Case management following working on discharge planning and patient will also require insurance authorization. 12/24/2023 Patient is seen in follow-up today with general surgery following. Patient underwent repeat CT abdomen showing significant ascites and interventional rad iology being for possible drainage and recommend fluid analysis. Infectious disease following patient is maintained on antibiotics along with antifungals and will continue. Patient with extensive unstageable sacral decubitus ulcer in need of debridement and tentatively scheduled for debridement with Dr. Trivedi on 12/26/2023. Hold anticoagulation for the procedure. Patient is currently afebrile with no reported chest pain or worsening shortness of breath. Encouraged oral intake and recommend PT/OT therapy daily. Patient is significantly weak and has had prolonged hospitalization. Plans on going to [facility] for continued ability. Case management is following as patient will require insurance authorization. 12/25/2023 Patient is seen and evaluated in follow-up today remains lethargic although arousable. Patient underwent paracentesis with approximately 2 L removed for ascites with interventional radiology today. Fluid sent for analysis. Patient is also scheduled to undergo debridement of the unstageable decubitus ulcer with Dr. Trivedi tomorrow would recommend holding anticoagulation and n.p.o. at midnight. Patient needs encouragement with increased activity and oral intake. Electrolytes reveal a potassium of 3.1 and magnesium 1.7 and will replace per protocol. Will follow-up on repeat labs and continue to replace as needed. Encouraged oral intake. Prognosis remains extremely guarded Review of systems: Constitutional: reports of fatigue, no fever, or chills Cardiovascular: No reports of chest pain or palpitations Respiratory: No reports of worsening shortness of breath or cough GI: No reports of nausea, vomiting, or diarrhea, not much oral intake, no a ppetite : No reports of dysuria or retention Neurovascular: reports of extreme weakness All medications have been reviewed Physical exam: Gen: This is a 73-year-old female who is asleep although arousable, alert and oriented x 2-3, ill-appearing, well developed, elderly appearing HEENT: Head is atraumatic, normocephalic. Pupils equal, round. Sclerae is anicteric. NECK: Supple. No JVD. No lymphadenopathy. No thyromegaly. LUNGS: Diminished breath sounds bilaterally otherwise clear to auscultation. No wheezes or rhonchi. No intercostal retractions. HEART: S1, S2 are muffled ABDOMEN: Soft. Distended. bowel sounds are present. No masses. tenderness noted throughout. Surgical dressing is dry and umang noted with no significant redness or drainage noted, ostomy noted with stool in the left, wound VAC noted in the left groin EXTREMITIES: Bilateral lower extremity edema. No calf tenderness. NEUROLOGICAL: Patient is asleep although arousable, alert and oriented x2. Cranial nerves 2 through 12 are grossly intact. Diffusely weak Assessment: Acute sigmoid sigmoid colitis, diverticulitis with proctitis and perforation. With multiple entero-cutaneous and entero-vesical fistulas, including to the left lower abdominal wall. Status post colostomy Septic shock secondary to above, Improved Acute hypoxic respiratory failure requiring intubation and mechanical ventilation. S/p extubation on 12/24. Patient is continued on 4L via NC Left lung collapse secondary to mucous plugging status post bronchoscopy and lavage of left lung. Done on 12/10/2023 and also on 12/15/2023 Klebsiella urinary tract infection New onset A-fib and RVR, currently rate controlled Acute kidney injury, Improved no more need for dialysis Acute anemia, unknown baseline, chronic microcytic. S/p units of PRBC transfusion pressure ulcer, left upper buttock, present on admission, stage II Unstageable sacral decubitus pressure ulcer, present on admission , significant tunneling, scheduled to undergo debridement on 12/26/2023 Metabolic encephalopathy, with possible elements of delirium, improving Bilateral adrenal nodule, recommend follow-up CT in 3 months. Severe protein calorie malnutrition with a BMI of 29.9 Hydropic gallbladder with multiple gallstones Anasarca With severe hypoalbuminemia and ascites status post paracentesis on 12/25/2023 with approximately 2 L removed Suspect critical illness polyneuropathy GI prophylaxis DVT prophylaxis No code Plan: Patient is continued on antibiotics with infectious disease following also maintained on antifungals as culture showing Romelia Wound care reconsulted as patient has extensive decubitus coccyx ulcer that is unstageable with extensive tunneling noted. There is some drainage noted as well and scheduled to undergo debridement on 12/[address] Trivedi IR consulted and patient is status post paracentesis with approximately 2 L removed. Fluid sent for analysis and pending Patient remains off BiPAP and is on 4 L via nasal cannula Continue with wound care and wound VAC in place on the left groin wound with surgery team following closely Patient is being currently on Lasix 40 mg IV daily. Pulmonary following as well Patient is on Eliquis and oral amiodarone for new onset atrial fibrillation with RVR. currently rate controlled. HOLD eliquis for debridement on 12/25 DVT prophylaxis, currently on Eliquis GI prophylaxis Due to multiple complex medical issues prognosis is extremely poor and guarded, CODE STATUS DNR/DNI, Patient has declined any further BiPAP, bronchoscopy, reintubation. Patient is refusing hospice at this time The impression and plan of care has been dictated by Nurse Rohit Cutlert joanne as directed. Dr. Sierar MD I have performed a history and examination and MDM of this patient, discussed the same with the dictator, and agree with the dictator's assessment and plan as written ,documented as a scribe. Based on total visit time, I have performed more than 50% of the visit. Objective - Vital Signs Vital signs: Vital Signs Temp 98.1 F 12/25/23 08:01 Pulse 75 12/25/23 09:48 Resp 12 12/25/23 09:48 BP 129/73 12/25/23 09:48 Pulse Ox 100 12/25/23 09:48 FiO2 40 12/17/23 11:28 Intake & Output 12/24/23 12/25/23 12/25/23 18:59 06:59 18:59 Output Total 2450 Balance -2450 Output: Urine 2150 Stool 300 Other: Voiding Method Indwelling Catheter Indwelling Catheter ABP, PAP, CO, CI - Last Documented Arterial Blood Pressure 95/53 - Labs CBC & Chem 7: 12/25/23 06:53 12/25/23 06:53 Labs: Abnormal Lab Results - Last 24 Hours (Table) 12/24/23 12/24/23 Range/Units 06:57 06:57 RBC 3.27 L (4.10-5.20) X 10*6/uL Hgb 8.4 L (12.0-15.0) g/dL Hct 28.1 L (37.2-46.3) % MCH 25.7 L (27.0-32.0) pg MCHC 29.9 L (32.0-37.0) g/dL RDW 23.9 H (11.5-14.5) % Plt Count 676 H (140-440) X 10*3/uL MPV 9.3 L (9.5-12.2) FL Immature Gran # 0.05 H (0.00-0.04) X 10*3/uL Lymphocytes # 0.79 L (0.90-5.00) X 10*3/uL Carbon Dioxide 33.3 H (21.6-31.8) mmol/L Creatinine 0.5 L (0.6-1.5) mg/dL BUN/Creatinine Ratio 24.20 H (12.00-20.00) Ratio Calcium 8.0 L (8.7-10.3) mg/dL
[2023-12-26] MEDS ORDERED: HYDROmorphone 0.5 MG/0.5 ML SYRINGE IVP PRN (07:44)
[2023-12-26 08:49] LABS: Calcium 8.3 mg/dL (8.7-10.3); Carbon Dioxide 33.5 mmol/L (21.6-31.8); Chloride 101 mmol/L (96-109); Glucose 88 mg/dL (70-110); Magnesium 1.9 mg/dL (1.5-2.4); Potassium 3.6 mmol/L (3.5-5.5); Sodium 142 mmol/L (135-145)
--- NOTE | 2023-12-26 10:03 | P.PN ---
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 She has drainage from sacral decubitus ulcer. She is status post paracentesis for intra-abdominal fluid collection with cultures sent. ROS: No reports of nausea and vomiting. No new chest pain. Has productive sputum PHYSICAL EXAM: VITAL SIGNS: Reviewed CONSTITUTIONAL: Well developed and in no acute distress. EYES: Conjuctivae without sclera icterus. Extraocular movements grossly intact. HEAD, EARS, NOSE, THROAT: Moist buccal mucosa. Head is atraumatic, nor mocephalic. Extremely hard of hearing. No nasal drainage. RESPIRATORY: Non-labored respirations and equal bilateral excursions. CARDIOVASCULAR: Palpable 2+ radial pulses. ABDOMEN: Ostomy functioning with stool. MUSCULOSKELETAL: Has right [id number] amputation. SKIN: Good skin turgor. Well perfused. NEUROLOGIC: Cranial nerves II through XII grossly intact. No focal or lateralizing signs. PSYCH: Appropriate affect. Alert and oriented to person, place and time. SACRUM: Unstageable pressure ulcer CLINICAL LABS: Reviewed. WBC normal. Platelets elevated over 600 ASSESSMENT: 1. 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 Sensorineural hearing loss, moderate to extreme 3. No previous medical care 4. Severe iron deficiency anemia 5. Generalized malnutrition 6. Pressure sacral ulcer, unstageable 7. Thrombocytosis PLAN: 1. Sharp excisional debridement of sacral ulcer with possible wound VAC 2. Blood thinner discontinued. 3. Patient elevated risk due to multiple comorbid condition Objective - Vital Signs Vital signs: Vital Signs Temp 97.6 F 12/26/23 08:00 Pulse 76 12/26/23 08:00 Resp 17 12/26/23 08:00 BP 107/62 12/26/23 08:00 Pulse Ox 99 12/26/23 08:00 FiO2 40 12/17/23 11:28 Intake & Output 12/25/23 12/26/23 12/26/23 18:59 06:59 18:59 Output Total 1825 Balance -1825 Weight 83 kg 86.5 kg Output: Urine 1775 Stool 50 Other: Voiding Method Indwelling Catheter Indwelling Catheter ABP, PAP, CO, CI - Last Documented Arterial Blood Pressure 95/53 - Labs CBC & Chem 7: 12/25/23 06:53 12/26/23 05:25 Labs: Abnormal Lab Results - Last 24 Hours (Table) 12/25/23 12/25/23 12/26/23 Range/Units 06:53 06:53 05:25 RBC 3.06 L (4.10-5.20) X 10*6/uL Hgb 7.9 L (12.0-15.0) g/dL Hct 26.1 L (37.2-46.3) % MCH 25.8 L (27.0-32.0) pg MCHC 30.3 L (32.0-37.0) g/dL RDW 23.6 H (11.5-14.5) % Plt Count 668 H (140-440) X 10*3/uL MPV 9.4 L (9.5-12.2) FL Immature Gran # 0.05 H (0.00-0.04) X 10*3/uL Lymphocytes # 0.82 L (0.90-5.00) X 10*3/uL Potassium 3.2 L (3.5-5.5) mmol/L Carbon Dioxide 34.6 H 33.5 H (21.6-31.8) mmol/L Creatinine 0.4 L 0.5 L (0.6-1.5) mg/dL BUN/Creatinine Ratio 27.25 H (12.00-20.00) Ratio Calcium 8.0 L 8.3 L (8.7-10.3) mg/dL Total Bilirubin <0.2 L (0.3-1.2) mg/dL Total Protein 4.3 L (6.2-8.2) g/dL Albumin 2.0 L (3.8-4.9) g/dL Albumin/Globulin Ratio 0.87 L (1.60-3.17) Ratio
[2023-12-26] MEDS: LACTATED RINGERS 1,000 ML IV SCH (13:47)
--- NOTE | 2023-12-26 15:19 | P.PN ---
Subjective Progress Note Date: 12/26/23 Principal diagnosis: Reason for follow-up is complicated diverticulitis with colocutaneous fistula Patient is a 73-year-old female who was brought into the ER at [facility] for the patient complaining of generalized weakness patient noticed to have sacral pressure ulcer and also complicate diverticulitis with a fistula to the left lower abdominal wall.Patient was taken to the OR on 12/06/2023 and this patient was status post exploratory laparotomy with sigmoid colectomy takedown of the colocutaneous fistula left inguinal hernia repair and peritoneal lavage. On today's evaluation that is 12/26/2023,the patient remains to be afebrile, patient is on 4 L nasal cannula supplemental oxygen and denies any shortness of breath no chest pain or cough.Patient denies having any nausea or vomiting, no abdominal pain has been complaining of mostly feeling thirsty waiting for surgery this afternoon. Patient did have a creatinine 0.85 no CBC was done today Objective - Vital Signs Vital signs: Vital Signs Temp 97.8 F 12/26/23 13:50 Pulse 78 12/26/23 13:50 Resp 16 12/26/23 13:50 BP 120/56 12/26/23 13:50 Pulse Ox 100 12/26/23 13:50 FiO2 40 12/17/23 11:28 Intake & Output 12/25/23 12/26/23 12/26/23 18:59 06:59 18:59 Output Total 1825 1600 Balance -1825 -1600 Weight 83 kg 86.5 kg Output: Urine 1775 1600 Stool 50 Other: Voiding Method Indwelling Catheter Indwelling Catheter Indwelling Catheter ABP, PAP, CO, CI - Last Documented Arterial Blood Pressure 95/53 - Exam GENERAL DESCRIPTION: An elderly female lying in bed in no distress RESPIRATORY SYSTEM: Unlabored breathing , decreased breath sounds at bases HEART: S1 S2 regular rate and rhythm , ABDOMEN: Soft , no tenderness EXTREMITIES: No edema feet - Labs CBC & Chem 7: 12/25/23 06:53 12/26/23 05:25 Labs: Abnormal Lab Results - Last 24 Hours (Table) 12/26/23 Range/Units 05:25 Carbon Dioxide 33.5 H (21.6-31.8) mmol/L Creatinine 0.5 L (0.6-1.5) mg/dL Calcium 8.3 L (8.7-10.3) mg/dL Assessment and Plan (1) Diverticulitis of intestine, part unspecified, without perforation or abscess without bleeding Current Visit: Yes Status: Acute Code(s): K57.92 - DVTRCLI OF INTEST, PART UNSP, W/O PERF OR ABSCESS W/O BLEED SNOMED Code(s): 295431411 (2) Leukocytosis Current Visit: Yes Status: Acute Code(s): D72.829 - ELEVATED WHITE BLOOD CELL COUNT, UNSPECIFIED SNOMED Code(s): 526687643 (3) Sepsis Current Visit: Yes Status: Acute Code(s): A41.9 - SEPSIS, UNSPECIFIED ORGANISM SNOMED Code(s): 45041046 (4) Gram-negative bacteremia Current Visit: Yes Status: Acute Code(s): R78.81 - BACTEREMIA SNOMED Code(s): 636453873891 Plan: 1patient with complicated diverticulitis with evidence of fistulous communication to the skin left lower quadrant area and concern for possible extension to the bladder, will need to cover for the polymicrobial jessie associated with such condition including enteric gram-negative both aerobes and anaerobes 2-patient also have a sacral pressure ulcer but no significant surrounding c ellulitis, wound care has been consulted continue local wound care per them 3Fusobacterium 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 that is beta-lactamase negative repeat blood culture has been negative so far 3-patient is status post extensive surgery including 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 5patient sputum culture grew Romelia bronchoscopy culture also grew Romelia as well as abdominal culture growing Romelia albicans 6-patient remains to be afebrile and the patient white normalized, patient did have elevated platelet count CT abdominal pelvis did show worsening anasarca localized fluid collection within the left mid abdominal wall and worsening of the sacral ulcer exposing the bony surface of the coccyx, patient is currently waiting for debridement of the sacral wound and deep culture and that will determine her discharge antibiotics for now continue with Unasyn and Eraxis, this was discussed with [employer] for admitting team Dictation was produced using [employer] dictation software. please excuse any grammatical, word or spelling errors.
[2023-12-26] MEDS ORDERED: fentaNYL (PF) 50 MCG/ML 2 ML AMP ONE (15:24)
[2023-12-26] MEDS ORDERED: PROPOFOL 10 MG/ML 20 ML VIAL IV ONE (15:24)
[2023-12-26] MEDS ORDERED: ceFAZolin 1 GM/50 ML BAG (PMX) ONE (15:24)
[2023-12-26] MEDS ORDERED: SUCCINYLCHOLINE CHLORIDE 200 MG/10 ML VIAL IV ONE (15:24)
[2023-12-26] MEDS ORDERED: LIDOCAINE 1% INJ 10MG/ML (20 ML MDV) ONE (15:24)
[2023-12-26] MEDS ORDERED: PHENYLEPHRINE-0.9% NACL SYG 1,000 MCG/10 ML SYRINGE ONE (15:24)
--- NOTE | 2023-12-26 15:24 | P.PN ---
Progress Note - Text Progress Note Date: 12/26/23 Patient has unstageable sacral ulcer. She is agreeable for surgical intervention with full CODE STATUS only during surgery. DNR to resume after surgery.
[2023-12-26] MEDS: SODIUM CHLORIDE 0.9% 50 ML with ceFAZolin 2,000 MG IV ONE (16:05)
--- NOTE | 2023-12-26 17:22 | P.OP ---
Date of Procedure: 12/26/23 Description of Procedure: SURGEON: JANIS ELENA MD PREOPERATIVE DIAGNOSES: 1. Unstageable sacrococcygeal ulcer. POSTOPERATIVE DIAGNOSES: 1. Unstageable sacrococcygeal ulcer. OPERATION: 1. Sharp excisional debridement with blade and scissor of 15 x 14 x 3 cm sacrococcygeal wound to muscle and bone. 2. Water pulse lavage 3 L normal saline debridement of sacrococcygeal wound 15 x 14 x 3 cm to muscle and bone. 3. Bone biopsy of coccyx, deep biopsy. 4. Sharp excisional debridement umbilicus, 3 x 3 cm, using scissors ANESTHESIA: General. ESTIMATED BLOOD LOSS: 50 mL. COMPLICATIONS: None. SPECIMENS: Bone biopsy coccyx FINDINGS: 1. Coccyx bone exposed consistent with stage IV sacrococcygeal ulcer. INDICATIONS: Benefits and risks were discussed with the patient and family. Informed consent was obtained. DESCRIPTION: Patient was brought to the operating room, initially placed supine. After general induction, she was repositioned in the right lateral decubitus position. The patient was also on schedule antibiotics. The buttocks and sacrococcygeal area were prepped and draped in a standard sterile fashion using Betadine. After a timeout protocol, attention was brought to the depth of the wound whereby moderate necrosis with brown to yellow tissue exudate and slough was found along the surface of the sacrococcygeal wound. The wound was measured to a depth of 2 cm with dimension of 8 x 8 cm with undermining along the superior aspects of at least 2 cm as well. Using a sharp excisional debridement with a #10 blade, the tissue was excised to healthy bleeding tissue to the the muscle. At the coccyx, the bone was exposed. Bone biopsy was obtained using a rongeur. The tail of the coccyx bone was very soft, highly suspicious for clinical osteomyelitis. Next using a combination of Metzenbaum scissor, the periphery of the wound was also cleared of any fibrinous deposits. Along the buttocks were features of second degree burn of 13 x 7 cm with dark eschar. Using a blade, sharp excisional debridement down to healthy dermis and subcutaneous tissue was also performed. Bleeding was checked with electro Bovie cautery. 3 L of water jet pulse lavage was performed along the wound for mechanically debridement followed by a 4 x 4 sponge. All yellow exudate was addressed. Again, the depth of the wound was confirmed by 8 x 8 cm in length and width and depth of at least 2 cm with another 2 cm undermine along the superior aspect of the sacrococcygeal area. Using a moist Kerlix roll, the wound was packed. An ABD x 3 were placed along the wound. Six-inch micropore tape was placed to secure the dressing. The patient was placed in adult diapers. She was awoken and taken to the postanesthesia care unit in stable condition. Intraoperative findings were discussed with the patient's family including concern of what appeared to be a secondary burn along the bilateral buttocks. The family had stated the patient lived alone and will be living with family members and/or transferred to a subacute rehab facility. I have also recommended that she will need regular followups at the wound care center given the depth of the wound as well. Thank you for allowing me to participate in the care of care your patient.
[2023-12-26] MEDS: DEXAMETHASONE SOD PHOSPHATE 4 MG/ML 1 ML VIAL IV ONE (17:54)
[2023-12-26] MEDS: ONDANSETRON 4 MG/2 ML VIAL IVP ONE (17:55)
--- NOTE | 2023-12-27 06:29 | P.PN ---
Subjective Progress Note Date: 12/26/23 73 years old female who presents to the emergency room for lower abdominal fistula drainage, associated with generalized weakness. Patient looks awake alert but tired looking, pale. Feels generally weak. N has mild generalized abdominal pain and tenderness. No rebound tenderness. Blood with malodorous left lower abdominal fistula drainage with fecal material coming out. Patient also with right rotation. Patient also with unstageable sacral pressure ulcer. With some evidence of cellulitis. Patient is mildly confused. But no headache or weakness in upper or lower patient was hypotensive with a blood pressure/42, currently slightly better 96/43. Potassium is low 2.9, WBC elevated 23,000, hemoglobin 7.4. Creatinine 0.7. Liver enzymes unremarkable. CT of the abdomen pelvis showing sigmoid diverticulitis and proctitis. 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 Please refer to the report for more details. Patient was ordered received normal saline boluses. Currently on Normosol at 130 mL/h She received 1 dose of Zosyn and started on Flagyl. We are going to add cefepime for gram-negative coverage. 12/21/2023 Patient is seen and evaluated in follow-up on the regular medical floor. She is currently sitting up in bed. Awake and alert in no acute distress. -- Remains on O2 at 4 L per nasal cannula maintaining O2 saturations in the mid 90s. She is afebrile. Hemodynamically stable. She has normal staying at KVO. --She continues on Unasyn and Eraxis. -White count 7.9. Hemoglobin 7.7. Platelets 601. Sodium 145. Potassium 3.6. Bicarb 32. BUN 18. Creatinine 0.5. Glucose 101. She remains on IV diuretics. She is currently in a -3.6 L balance. 12/22/2023 the patient is seen and evaluated in room at bedside; continues to be afebrile, the patient is on 4 L nasal cannula oxygen and breathing comfortably, the Pt has been complaining of right ear and nasal stuffiness, denies having any chest pain or cough, the patient denies having any abdominal pain no vomiting or any diarrhea has been reported. 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 Patient is on the medical surgical unit with extensive wounds noted to the abdomen including wound VAC on the left groin for a fistula and ostomy with stool noted. Patient with extensive abdominal drainage. Surgical site with umang noted with no significant redness or drainage noted. Patient is maintained on antibiotics with infectious disease following and repeat cultures thus far showing Romelia maintained on antifungals along with antibiotics. Patient sensitive wounds to the decubitus area unstageable on admission and has worsened during hospitalization with extensive tunneling and some drainage noted that is nonpurulent. With surgery following with the need for possible debridement. Repeat CT abdomen is ordered as well per surgery as patient continues to have pain and distention. Patient is currently afebrile with no reports of worsening shortness of breath. Currently rate controlled medications and will continue to monitor closely. Patient has refused hospice and would like to go to rehab. Case management following working on discharge planning and patient will also require insurance authorization. 12/24/2023 Patient is seen in follow-up today with general surgery following. Patient underwent repeat CT abdomen showing significant ascites and interventional rad iology being for possible drainage and recommend fluid analysis. Infectious disease following patient is maintained on antibiotics along with antifungals and will continue. Patient with extensive unstageable sacral decubitus ulcer in need of debridement and tentatively scheduled for debridement with Dr. Trivedi on 12/26/2023. Hold anticoagulation for the procedure. Patient is currently afebrile with no reported chest pain or worsening shortness of breath. Encouraged oral intake and recommend PT/OT therapy daily. Patient is significantly weak and has had prolonged hospitalization. Plans on going to [facility] for continued ability. Case management is following as patient will require insurance authorization. 12/25/2023 Patient is seen and evaluated in follow-up today remains lethargic although arousable. Patient underwent paracentesis with approximately 2 L removed for ascites with interventional radiology today. Fluid sent for analysis. Patient is also scheduled to undergo debridement of the unstageable decubitus ulcer with Dr. Trivedi tomorrow would recommend holding anticoagulation and n.p.o. at midnight. Patient needs encouragement with increased activity and oral intake. Electrolytes reveal a potassium of 3.1 and magnesium 1.7 and will replace per protocol. Will follow-up on repeat labs and continue to replace as needed. Encouraged oral intake. Prognosis remains extremely guarded 12/26/2023 Patient is seen in follow-up this morning scheduled to undergo excisional debridement of the decubitus ulcer with Dr. Trivedi today. Patient is currently n.p.o. and awaiting the procedure. Patient continues on antibiotics with infectious disease following as well as antifungals. Currently awaiting deep tissue cultures to determine appropriate antibiotic use on discharge. Patient with extensive sacral decubitus ulcer will need intense wound care physical therapy. Patient is currently afebrile no reports of chest pain or shortness of breath. Will await surgical report Review of systems: Constitutional: reports of fatigue, no fever, or chills Cardiovascular: No reports of chest pain or palpitations Respiratory: No reports of worsening shortness of breath or cough GI: No reports of nausea, vomiting, or diarrhea, not much oral intake, no appetite : No reports of dysuria or retention Neurovascular: reports of extreme weakness All medications have been reviewed Physical exam: Gen: This is a 73-year-old female who is asleep although arousable, alert and oriented x 2-3, ill-appearing, well developed, elderly appearing HEENT: Head is atraumatic, normocephalic. Pupils equal, round. Sclerae is anicteric. NECK: Supple. No JVD. No lymphadenopathy. No thyromegaly. LUNGS: Diminished breath sounds bilaterally otherwise clear to auscultation. No wheezes or rhonchi. No intercostal retractions. HEART: S1, S2 are muffled ABDOMEN: Soft. Distended. bowel sounds are present. No masses. tenderness noted throughout. Surgical dressing is dry and umang noted with no significant redness or drainage noted, ostomy noted with stool in the left, wound VAC noted in the left groin EXTREMITIES: Bilateral lower extremity edema. No calf tenderness. NEUROLOGICAL: Patient is asleep although arousable, alert and oriented x2. Cranial nerves 2 through 12 are grossly intact. Diffusely weak Assessment: Acute sigmoid sigmoid colitis, diverticulitis with proctitis and perforation. With multiple entero-cutaneous and entero-vesical fistulas, including to the left lower abdominal wall. Status post colostomy Septic shock secondary to above, Improved Acute hypoxic respiratory failure requiring intubation and mechanical ventilation. S/p extubation on 12/24. Patient is continued on 4L via NC Left lung collapse secondary to mucous plugging status post bronchoscopy and lavage of left lung. Done on 12/10/2023 and also on 12/15/2023 Klebsiella urinary tract infection New onset A-fib and RVR, currently rate controlled Acute kidney injury, Improved no more need for dialysis Acute anemia, unknown baseline, chronic microcytic. S/p units of PRBC transfusion pressure ulcer, left upper buttock, present on admission, stage II Unstageable sacrococcygeal pressure ulcer, present on admission , as confirmed by surgery and is status post sharp excisional debridement obtained. Bone exposed on the coccyx status post debridement, most likely osteomyelitis Metabolic encephalopathy, with possible elements of delirium, improving Bilateral adrenal nodule, recommend follow-up CT in 3 months. Severe protein calorie malnutrition with a BMI of 29.9 Hydropic gallbladder with multiple gallstones Anasarca With severe hypoalbuminemia and ascites status post paracentesis on 12/25/2023 with approximately 2 L removed Suspect critical illness polyneuropathy GI prophylaxis DVT prophylaxis No code Plan: Patient is continued on antibiotics with infectious disease following also maintained on antifungals as culture showing Romelia Wound care reconsulted as patient has extensive decubitus sacral coccyx ulcer that is unstageable with extensive tunneling noted. There is some drainage noted as well and underwent sharp excisional debridement today with Dr. Trivedi. Biopsies were obtained including of the bone as there was bone noted once debrided and irrigated., Highly suggestive of osteomyelitis in the coccyx region Patient is status post paracentesis with approximately 2 L removed on 12/25/2023. Fluid sent for analysis and pending Patient remains off BiPAP and is on 4 L via nasal cannula Continue with wound care and wound VAC in place on the left groin wound with surgery team following closely. Patient will need extensive wound care and close outpatient follow-up at the Center for discharge Patient is being currently on Lasix 40 mg IV daily. Pulmonary following as well Patient is on Eliquis and oral amiodarone for new onset atrial fibrillation with RVR. currently rate controlled. HOLD eliquis for debridement on 12/25 DVT prophylaxis, currently on Eliquis GI prophylaxis Due to multiple complex medical issues prognosis is extremely poor and guarded, CODE STATUS DNR/DNI, Patient has declined any further BiPAP, bronchoscopy, re intubation. Patient is refusing hospice at this time The impression and plan of care has been dictated by Irene Israel, Nurse Practitioner as directed. Dr. Sierra MD I have performed a history and examination and MDM of this patient, discussed the same with the dictator, and agree with the dictator's assessment and plan as written ,documented as a scribe. Based on total visit time, I have performed more than 50% of the visit. Objective - Vital Signs Vital signs: Vital Signs Temp 97.4 F L 12/27/23 02:00 Pulse 78 12/27/23 02:00 Resp 16 12/27/23 02:00 BP 103/63 12/27/23 02:00 Pulse Ox 100 12/27/23 02:00 FiO2 40 12/17/23 11:28 Intake & Output 12/26/23 12/26/23 12/27/23 06:59 18:59 06:59 Intake Total 900 0 Output Total 1680 Balance -780 0 Weight 86.5 kg 81.6 kg Intake: IV 900 Oral 0 Output: Urine 1630 Estimated Blood Loss 50 Other: Voiding Method Indwelling Catheter Indwelling Catheter Indwelling Catheter ABP, PAP, CO, CI - Last Documented Arterial Blood Pressure 95/53 - Labs CBC & Chem 7: 12/25/23 06:53 12/26/23 05:25 Labs: Abnormal Lab Results - Last 24 Hours (Table) 12/26/23 Range/Units 05:25 Carbon Dioxide 33.5 H (21.6-31.8) mmol/L Creatinine 0.5 L (0.6-1.5) mg/dL Calcium 8.3 L (8.7-10.3) mg/dL Microbiology - Last 24 Hours (Table) 12/25/23 10:14 Gram Stain - Preliminary Ascites Fluid Body Fluid Culture - Preliminary 12/10/23 07:20 Acid Fast Bacilli Smear - Preliminary Bronchoalviolar Lavage - Left Acid Fast Bacilli Culture - Preliminary
[2023-12-27 08:20] LABS: Anisocytosis Slight; Basophils # (A) 0.1 k/uL (0-0.2); Basophils % (A) 1 %; Eosinophils # (A) 0.3 k/uL (0-0.7); Eosinophils % (A) 3 %; HCT 29.8 % (34.0-46.0); HGB 8.5 gm/dL (11.4-16.0); Hypochromasia Marked; Lymphocytes % (A) 12 %; MCH 25.8 pg (25.0-35.0); MCHC 28.7 g/dL (31.0-37.0); MCV 89.9 fL (80.0-100.0); Mean Platelet Volume 7.3; Monocytes # (A) 0.4 k/uL (0-1.0); Monocytes % (A) 5 %; Neutrophils % (A) 78 %; Platelet Count 727 k/uL (150-450); RBC 3.31 m/uL (3.80-5.40)
[2023-12-27 08:24] LABS: ALT 14 U/L (4-34); AST 32 U/L (14-36); African American GFR (CKD) >90 (>60 ml/min/1.73 sqM); Albumin 1.8 g/dL (3.5-5.0); Albumin/Globulin Ratio 0.7; Alkaline Phosphatase 94 U/L (38-126); Blood Urea Nitrogen 12 mg/dL (7-17); Calcium 7.8 mg/dL (8.4-10.2); Chloride 98 mmol/L (98-107); Globulin 2.6 g/dL; Glucose 79 mg/dL (74-99); Non-African American GFR(CKD) 89 (>60 ml/min/1.73 sqM); Potassium 3.2 mmol/L (3.5-5.1); Sodium 139 mmol/L (137-145); Total Bilirubin 0.3 mg/dL (0.2-1.3); Total Protein 4.4 g/dL (6.3-8.2)
[2023-12-27 08:31] LABS: Anion Gap 7 mmol/L
[2023-12-27 08:40] LABS: Carbon Dioxide 34 mmol/L (22-30)
--- NOTE | 2023-12-27 15:06 | P.PN ---
Subjective Progress Note Date: 12/27/23 CHIEF COMPLAINT: Large sacral ulcer HISTORY OF PRESENT ILLNESS: The patient is a [id number]-year-old female who is status post debridement of large sacral ulcer including of the abdominal wall and change of wound VAC of the left groin. No new complaints. She reports generalized weakness. ROS: No reports of nausea and vomiting. No new chest pain. Has productive sputum PHYSICAL EXAM: VITAL SIGNS: Reviewed CONSTITUTIONAL: Well developed and in no acute distress. EYES: Conjuctivae without sclera icterus. Extraocular movements grossly intact. HEAD, EARS, NOSE, THROAT: Moist buccal mucosa. Head is atraumatic, normocephalic. Extremely hard of hearing. No nasal drainage. RESPIRATORY: Non-labored respirations and equal bilateral excursions. CARDIOVASCULAR: Palpable 2+ radial pulses. ABDOMEN: Ostomy functioning with stool. Midline dressing with wound VAC along the left groin, mid abdomen. MUSCULOSKELETAL: Has right [id number] amputation. SKIN: Good skin turgor. Well perfused. NEUROLOGIC: Cranial nerves II through XII grossly intact. No focal or lateralizing signs. PSYCH: Appropriate affect. Alert and oriented to person, place and time. SACRUM: Pressure dressing intact CLINICAL LABS: Reviewed. WBC normal. Platelet count elevated, thrombocytosis ASSESSMENT: 1. 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 Sensorineural hearing loss, moderate to extreme 3. No previous medical care 4. Severe iron deficiency anemia 5. Generalized malnutrition 6. Stage IV sacral ulcer 7. Thrombocytosis PLAN: 1. Will need wound VAC Y adapter for 3 wounds including abdomen, left groin, sacrum 2. Recommend increase protein intake for optimal nutrition and healing 3. Transfer to extended care facility for next week Objective - Vital Signs Vital signs: Vital Signs Temp 98.1 F 12/27/23 13:46 Pulse 83 12/27/23 13:46 Resp 18 12/27/23 13:46 BP 106/65 12/27/23 13:46 Pulse Ox 98 12/27/23 13:46 FiO2 40 12/17/23 11:28 Intake & Output 12/26/23 12/27/23 12/27/23 18:59 06:59 18:59 Intake Total 900 0 Output Total 1680 1550 Balance -780 0 -1550 Weight 81.6 kg Intake: IV 900 Oral 0 Output: Urine 1630 1300 Stool 250 Estimated Blood Loss 50 Other: Voiding Method Indwelling Catheter Indwelling Catheter Indwelling Catheter ABP, PAP, CO, CI - Last Documented Arterial Blood Pressure 95/53 - Labs CBC & Chem 7: 12/27/23 06:52 12/27/23 06:52 Labs: Abnormal Lab Results - Last 24 Hours (Table) 12/27/23 12/27/23 Range/Units 06:52 06:52 RBC 3.31 L (3.80-5.40) m/uL Hgb 8.5 L (11.4-16.0) gm/dL Hct 29.8 L (34.0-46.0) % MCHC 28.7 L (31.0-37.0) g/dL RDW 20.0 H (11.5-15.5) % Plt Count 727 H (150-450) k/uL Potassium 3.2 L (3.5-5.1) mmol/L Carbon Dioxide 34 H (22-30) mmol/L Calcium 7.8 L (8.4-10.2) mg/dL Total Protein 4.4 L (6.3-8.2) g/dL Albumin 1.8 L (3.5-5.0) g/dL Microbiology - Last 24 Hours (Table) 12/25/23 10:14 Gram Stain - Preliminary Ascites Fluid Body Fluid Culture - Preliminary 12/10/23 07:20 Acid Fast Bacilli Smear - Preliminary Bronchoalviolar Lavage - Left Acid Fast Bacilli Culture - Preliminary
--- NOTE | 2023-12-27 16:19 | P.PN ---
Subjective Progress Note Date: 12/27/23 Principal diagnosis: Reason for follow-up is complicated diverticulitis with colocutaneous fistula Patient is a 73-year-old female who was brought into the ER at [facility] for the patient complaining of generalized weakness patient noticed to have sacral pressure ulcer and also complicate diverticulitis with a fistula to the left lower abdominal wall.Patient was taken to the OR on 12/06/2023 and this patient was status post exploratory laparotomy with sigmoid colectomy takedown of the colocutaneous fistula left inguinal hernia repair and peritoneal lavage.Patient is status post Sharp excisional debridement with blade and scissor of 15 x 14 x 3 cm sacrococcygeal wound to muscle and bone, along with Bone biopsy of coccyx, completed on 12/26/2023. On today's evaluation that is 12/27/2023, the patient continues to be afebrile, the patient is on room air and breathing comfortably, the Pt denies having any chest pain or cough, the patient denies nausea vomiting some abdominal discomfort mention pain to the sacral wound has slightly decreased in intensity. Patient white count is 9.0, creatinine 0.66 sacral cultures are pending Objective - Vital Signs Vital signs: Vital Signs Temp 97.6 F 12/27/23 07:01 Pulse 78 12/27/23 08:14 Resp 18 12/27/23 08:14 BP 108/63 12/27/23 07:01 Pulse Ox 97 12/27/23 07:01 FiO2 40 12/17/23 11:28 Intake & Output 12/26/23 12/27/23 12/27/23 18:59 06:59 18:59 Intake Total 900 0 Output Total 1680 Balance -780 0 Weight 81.6 kg Intake: IV 900 Oral 0 Output: Urine 1630 Estimated Blood Loss 50 Other: Voiding Method Indwelling Catheter Indwelling Catheter Indwelling Catheter ABP, PAP, CO, CI - Last Documented Arterial Blood Pressure 95/53 - Exam GENERAL DESCRIPTION: An elderly female lying in bed in no distress RESPIRATORY SYSTEM: Unlabored breathing , decreased breath sounds at bases HEART: S1 S2 regular rate and rhythm , ABDOMEN: Soft , no tenderness EXTREMITIES: No edema feet - Labs CBC & Chem 7: 12/27/23 06:52 12/27/23 06:52 Labs: Abnormal Lab Results - Last 24 Hours (Table) 12/27/23 12/27/23 Range/Units 06:52 06:52 RBC 3.31 L (3.80-5.40) m/uL Hgb 8.5 L (11.4-16.0) gm/dL Hct 29.8 L (34.0-46.0) % MCHC 28.7 L (31.0-37.0) g/dL RDW 20.0 H (11.5-15.5) % Plt Count 727 H (150-450) k/uL Potassium 3.2 L (3.5-5.1) mmol/L Carbon Dioxide 34 H (22-30) mmol/L Calcium 7.8 L (8.4-10.2) mg/dL Total Protein 4.4 L (6.3-8.2) g/dL Albumin 1.8 L (3.5-5.0) g/dL Microbiology - Last 24 Hours (Table) 12/25/23 10:14 Gram Stain - Preliminary Ascites Fluid Body Fluid Culture - Preliminary 12/10/23 07:20 Acid Fast Bacilli Smear - Preliminary Bronchoalviolar Lavage - Left Acid Fast Bacilli Culture - Preliminary Assessment and Plan (1) Diverticulitis of intestine, part unspecified, without perforation or abscess without bleeding Current Visit: Yes Status: Acute Code(s): K57.92 - DVTRCLI OF INTEST, PART UNSP, W/O PERF OR ABSCESS W/O BLEED SNOMED Code(s): 864322854 (2) Leukocytosis Current Visit: Yes Status: Acute Code(s): D72.829 - ELEVATED WHITE BLOOD CELL COUNT, UNSPECIFIED SNOMED Code(s): 517091604 (3) Sepsis Current Visit: Yes Status: Acute Code(s): A41.9 - SEPSIS, UNSPECIFIED ORGANISM SNOMED Code(s): 84982190 (4) Gram-negative bacteremia Current Visit: Yes Status: Acute Code(s): R78.81 - BACTEREMIA SNOMED Code(s): 346056300347 Plan: 1patient with complicated diverticulitis with evidence of fistulous communication to the skin left lower quadrant area and concern for possible extension to the bladder, will need to cover for the polymicrobial jessie associated with such condition including enteric gram-negative both aerobes and anaerobes 2-patient also have a sacral pressure ulcer but no significant surrounding cellulitis, wound care has been consulted continue local wound care per them 3Fusobacterium 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 that is beta-lactamase negative repeat blood culture has been negative so far 3-patient is status post extensive surgery including 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 5patient sputum culture grew Romelia bronchoscopy culture also grew Romelia as well as abdominal culture growing Romelia albicans 6-patient remains to be afebrile and the patient white normalized, patient did have elevated platelet count CT abdominal pelvis did show worsening anasarca localized fluid collection within the left mid abdominal wall and worsening of the sacral ulcer exposing the bony surface of the coccyx, patient is status post debridement of the sacral wound down to the bones along with bone biopsy and culture was apparently pending we will continue with Unasyn and Eraxis with the discharge antibiotic on the basis of OR culture Dictation was produced using [employer] dictation software. please excuse any grammatical, word or spelling errors. Time with Patient: Less than 30
--- NOTE | 2023-12-27 19:31 | P.PN ---
Subjective Progress Note Date: 12/27/23 73 years old female who presents to the emergency room for lower abdominal fistula drainage, associated with generalized weakness. Patient looks awake alert but tired looking, pale. Feels generally weak. N has mild generalized abdominal pain and tenderness. No rebound tenderness. Blood with malodorous left lower abdominal fistula drainage with fecal material coming out. Patient also with right rotation. Patient also with unstageable sacral pressure ulcer. With some evidence of cellulitis. Patient is mildly confused. But no headache or weakness in upper or lower patient was hypotensive with a blood pressure/42, currently slightly better 96/43. Potassium is low 2.9, WBC elevated 23,000, hemoglobin 7.4. Creatinine 0.7. Liver enzymes unremarkable. CT of the abdomen pelvis showing sigmoid diverticulitis and proctitis. 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 Please refer to the report for more details. Patient was ordered received normal saline boluses. Currently on Normosol at 130 mL/h She received 1 dose of Zosyn and started on Flagyl. We are going to add cefepime for gram-negative coverage. 12/21/2023 Patient is seen and evaluated in follow-up on the regular medical floor. She is currently sitting up in bed. Awake and alert in no acute distress. -- Remains on O2 at 4 L per nasal cannula maintaining O2 saturations in the mid 90s. She is afebrile. Hemodynamically stable. She has normal staying at KVO. --She continues on Unasyn and Eraxis. -White count 7.9. Hemoglobin 7.7. Platelets 601. Sodium 145. Potassium 3.6. Bicarb 32. BUN 18. Creatinine 0.5. Glucose 101. She remains on IV diuretics. She is currently in a -3.6 L balance. 12/22/2023 the patient is seen and evaluated in room at bedside; continues to be afebrile, the patient is on 4 L nasal cannula oxygen and breathing comfortably, the Pt has been complaining of right ear and nasal stuffiness, denies having any chest pain or cough, the patient denies having any abdominal pain no vomiting or any diarrhea has been reported. 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 Patient is on the medical surgical unit with extensive wounds noted to the abdomen including wound VAC on the left groin for a fistula and ostomy with stool noted. Patient with extensive abdominal drainage. Surgical site with umang noted with no significant redness or drainage noted. Patient is maintained on antibiotics with infectious disease following and repeat cultures thus far showing Romelia maintained on antifungals along with antibiotics. Patient sensitive wounds to the decubitus area unstageable on admission and has worsened during hospitalization with extensive tunneling and some drainage noted that is nonpurulent. With surgery following with the need for possible debridement. Repeat CT abdomen is ordered as well per surgery as patient continues to have pain and distention. Patient is currently afebrile with no reports of worsening shortness of breath. Currently rate controlled medications and will continue to monitor closely. Patient has refused hospice and would like to go to rehab. Case management following working on discharge planning and patient will also require insurance authorization. 12/24/2023 Patient is seen in follow-up today with general surgery following. Patient underwent repeat CT abdomen showing significant ascites and interventional rad iology being for possible drainage and recommend fluid analysis. Infectious disease following patient is maintained on antibiotics along with antifungals and will continue. Patient with extensive unstageable sacral decubitus ulcer in need of debridement and tentatively scheduled for debridement with Dr. Trivedi on 12/26/2023. Hold anticoagulation for the procedure. Patient is currently afebrile with no reported chest pain or worsening shortness of breath. Encouraged oral intake and recommend PT/OT therapy daily. Patient is significantly weak and has had prolonged hospitalization. Plans on going to [facility] for continued ability. Case management is following as patient will require insurance authorization. 12/25/2023 Patient is seen and evaluated in follow-up today remains lethargic although arousable. Patient underwent paracentesis with approximately 2 L removed for ascites with interventional radiology today. Fluid sent for analysis. Patient is also scheduled to undergo debridement of the unstageable decubitus ulcer with Dr. Trivedi tomorrow would recommend holding anticoagulation and n.p.o. at midnight. Patient needs encouragement with increased activity and oral intake. Electrolytes reveal a potassium of 3.1 and magnesium 1.7 and will replace per protocol. Will follow-up on repeat labs and continue to replace as needed. Encouraged oral intake. Prognosis remains extremely guarded 12/26/2023 Patient is seen in follow-up this morning scheduled to undergo excisional debridement of the decubitus ulcer with Dr. Trivedi today. Patient is currently n.p.o. and awaiting the procedure. Patient continues on antibiotics with infectious disease following as well as antifungals. Currently awaiting deep tissue cultures to determine appropriate antibiotic use on discharge. Patient with extensive sacral decubitus ulcer will need intense wound care physical therapy. Patient is currently afebrile no reports of chest pain or shortness of breath. Will await surgical report 12/27/2023 Patient is seen in follow-up today status post excisional debridement of the extensive decubitus ulcer. After debridement and evaluation, stage IV sacral ulcer with bony involvement with concerns of osteomyelitis requiring wound VAC. Patient did have a bone biopsy as well as deep cultures which are currently pending. Patient is continued on antibiotics along with Eraxis and awaiting cultures to finalize discharge antibiotics. Patient needs extensive wound care and continuous encouraged oral intake. Patient is not eating adequately and continues to be extremely weak and would recommend aggressive physical therapy. Patient is currently afebrile with no reported chest pain or shortness of breath. Review of systems: Constitutional: reports of fatigue, no fever, or chills Cardiovascular: No reports of chest pain or palpitations Respiratory: No reports of worsening shortness of breath or cough GI: No reports of nausea, vomiting, or diarrhea, not much oral intake, no appetite : No reports of dysuria or retention Neurovascular: reports of extreme weakness All medications have been reviewed Physical exam: Gen: This is a 73-year-old female who is asleep although arousable, alert and oriented x 2-3, ill-appearing, well developed, elderly appearing HEENT: Head is atraumatic, normocephalic. Pupils equal, round. Sclerae is anicteric. NECK: Supple. No JVD. No lymphadenopathy. No thyromegaly. LUNGS: Diminished breath sounds bilaterally otherwise clear to auscultation. No wheezes or rhonchi. No intercostal retractions. HEART: S1, S2 are muffled ABDOMEN: Soft. Distended. bowel sounds are present. No masses. tenderness noted throughout. Surgical dressing is dry and umang noted with no significant redness or drainage noted, ostomy noted with stool in the left, wound VAC noted in the left groin EXTREMITIES: Bilateral lower extremity edema. No calf tenderness. NEUROLOGICAL: Patient is asleep although arousable, alert and oriented x2. Cranial nerves 2 through 12 are grossly intact. Diffusely weak Assessment: Acute sigmoid sigmoid colitis, diverticulitis with proctitis and perforation. With multiple entero-cutaneous and entero-vesical fistulas, including to the left lower abdominal wall. Status post colostomy Septic shock secondary to above, Improved Acute hypoxic respiratory failure requiring intubation and mechanical ventilation. S/p extubation on 12/24. Patient is continued on 4L via NC Left lung collapse secondary to mucous plugging status post bronchoscopy and lavage of left lung. Done on 12/10/2023 and also on 12/15/2023 Klebsiella urinary tract infection New onset A-fib and RVR, currently rate controlled Acute kidney injury, Improved no more need for dialysis Acute anemia, unknown baseline, chronic microcytic. S/p units of PRBC transfusion pressure ulcer, left upper buttock, present on admission, stage II Unstageable sacrococcygeal pressure ulcer, present on admission , status post excisional debridement and noted to be stage IV sacral decubitus ulcer with coccyx bony involvement, status post biopsy and deep tissue cultures obtained Bone exposed on the coccyx status post debridement, most likely osteomyelitis Metabolic encephalopathy, with possible elements of delirium, improving Bilateral adrenal nodule, recommend follow-up CT in 3 months. Severe protein calorie malnutrition with a BMI of 29.9 Hydropic gallbladder with multiple gallstones Anasarca With severe hypoalbuminemia and ascites status post paracentesis on 12/25/2023 with approximately 2 L removed Suspect critical illness polyneuropathy GI prophylaxis DVT prophylaxis No code Plan: Patient is continued on antibiotics with infectious disease following also maintained on antifungals as culture showing Romelia Patient will continue to require extensive wound care with 3 wound vacs to the abdomen groin and coccyx. Patient is status post excisional debridement with general surgery and awaiting biopsy results and cultures Patient is status post paracentesis with approximately 2 L removed on 12/25/2023. Fluid sent for analysis and pending Patient remains off BiPAP and is on 4 L via nasal cannula Patient is being currently on Lasix 40 mg IV daily. Pulmonary following as well Patient is on Eliquis and oral amiodarone for new onset atrial fibrillation with RVR. currently rate controlled. HOLD eliquis for debridement on 12/25. Will discuss with surgery when to resume anticoagulation DVT prophylaxis GI prophylaxis Due to multiple complex medical issues prognosis is extremely poor and guarded, CODE STATUS DNR/DNI, Patient has declined any further BiPAP, bronchoscopy, reintubation. Patient is refusing hospice at this time The impression and plan of care has been dictated by Irene Israel, Nurse Prac titioner as directed. Dr. Sierra MD I have performed a history and examination and MDM of this patient, discussed the same with the dictator, and agree with the dictator's assessment and plan as written ,documented as a scribe. Based on total visit time, I have performed more than 50% of the visit. Objective - Vital Signs Vital signs: Vital Signs Temp 98.1 F 12/27/23 13:46 Pulse 83 12/27/23 13:46 Resp 18 12/27/23 13:46 BP 106/65 12/27/23 13:46 Pulse Ox 98 12/27/23 13:46 FiO2 40 12/17/23 11:28 Intake & Output 12/26/23 12/27/23 12/27/23 18:59 06:59 18:59 Intake Total 900 0 Output Total 1680 1550 Balance -780 0 -1550 Weight 81.6 kg Intake: IV 900 Oral 0 Output: Urine 1630 1300 Stool 250 Estimated Blood Loss 50 Other: Voiding Method Indwelling Catheter Indwelling Catheter Indwelling Catheter ABP, PAP, CO, CI - Last Documented Arterial Blood Pressure 95/53 - Labs CBC & Chem 7: 12/27/23 06:52 12/27/23 06:52 Labs: Abnormal Lab Results - Last 24 Hours (Table) 12/27/23 12/27/23 Range/Units 06:52 06:52 RBC 3.31 L (3.80-5.40) m/uL Hgb 8.5 L (11.4-16.0) gm/dL Hct 29.8 L (34.0-46.0) % MCHC 28.7 L (31.0-37.0) g/dL RDW 20.0 H (11.5-15.5) % Plt Count 727 H (150-450) k/uL Potassium 3.2 L (3.5-5.1) mmol/L Carbon Dioxide 34 H (22-30) mmol/L Calcium 7.8 L (8.4-10.2) mg/dL Total Protein 4.4 L (6.3-8.2) g/dL Albumin 1.8 L (3.5-5.0) g/dL Microbiology - Last 24 Hours (Table) 12/25/23 10:14 Gram Stain - Preliminary Ascites Fluid Body Fluid Culture - Preliminary 12/10/23 07:20 Acid Fast Bacilli Smear - Preliminary Bronchoalviolar Lavage - Left Acid Fast Bacilli Culture - Preliminary
--- NOTE | 2023-12-28 12:58 | P.PN ---
Subjective Progress Note Date: 12/28/23 No acute events overnight. No nausea or vomiting. No abdominal pain. No fevers or chills. No drainage from around wound vacuums per nursing staff. Objective - Vital Signs Vital signs: Vital Signs Temp 97.6 F 12/28/23 07:37 Pulse 75 12/28/23 07:37 Resp 19 12/28/23 07:37 BP 113/58 12/28/23 07:37 Pulse Ox 99 12/28/23 07:37 FiO2 40 12/17/23 11:28 Intake & Output 12/27/23 12/28/23 12/28/23 18:59 06:59 18:59 Output Total 1550 475 Balance -1550 -475 Weight 81.3 kg Output: Urine 1300 475 Stool 250 Other: Voiding Method Indwelling Catheter Indwelling Catheter ABP, PAP, CO, CI - Last Documented Arterial Blood Pressure 95/53 - Exam Gen: AxO, NAD Pulm: non-labored respirations Abd: soft, mildy-tender around incisions, mildly-distended. No guardin g/rebound/rigidity Incisions: wound vac x3 C/D/I, no erythema or drainage seen from around vac. Serosang drainage seen in vac container Extrem: no edema seen - Labs CBC & Chem 7: 12/27/23 06:52 12/27/23 06:52 Labs: Microbiology - Last 24 Hours (Table) 12/25/23 10:14 Anaerobic Culture - Preliminary Ascites Fluid 12/25/23 10:14 Gram Stain - Preliminary Ascites Fluid Body Fluid Culture - Preliminary Assessment and Plan Assessment: 73-year-old female who is now status post debridement of necrotic abdominal wound as well as sacral decubital ulcer with a wound vacuum placement Plan: -Diet as tolerated -Continue wound vac to suction -PRN pain and nausea control -DVT/GI PPx -No acute surgical intervention -Okay to DC from surgical standpoint Cooper Westfall MD General Surgery
[2023-12-28 13:41] LABS: Basophils # (A) 0.06 X 10*3/uL (0.00-0.10); Basophils % (A) 0.8 %; Eosinophils # (A) 0.46 X 10*3/uL (0.04-0.35); Eosinophils % (A) 5.8 %; HCT 26.3 % (37.2-46.3); HGB 7.8 g/dL (12.0-15.0); Lymphocytes # (A) 1.24 X 10*3/uL (0.90-5.00); Lymphocytes % (A) 15.6 %; MCH 25.7 pg (27.0-32.0); MCHC 29.7 g/dL (32.0-37.0); MCV 86.5 FL (80.0-97.0); Mean Platelet Volume 9.6 FL (9.5-12.2); Monocytes # (A) 0.65 X 10*3/uL (0.20-1.00); Monocytes % (A) 8.2 %; NRBC Per 100 WBC 0 X 10*3/uL (0.00-0.01); Neutrophils # (A) 5.52 X 10*3/uL (1.80-7.70); Neutrophils % (A) 69.1 %; Platelet Count 665 X 10*3/uL (140-440); RBC 3.04 X 10*6/uL (4.10-5.20); RDW 22.6 % (11.5-14.5); WBC 7.97 X 10*3/uL (4.50-10.00)
[2023-12-28 14:06] LABS: Blood Urea Nitrogen 10.8 mg/dL (9.0-27.0); Carbon Dioxide 35.9 mmol/L (21.6-31.8); Chloride 98 mmol/L (96-109); Glucose 90 mg/dL (70-110); Magnesium 1.9 mg/dL (1.5-2.4); Potassium 3.8 mmol/L (3.5-5.5); Sodium 142 mmol/L (135-145)
--- NOTE | 2023-12-28 15:40 | P.PN ---
Subjective Progress Note Date: 12/28/23 Principal diagnosis: Reason for follow-up is complicated diverticulitis with colocutaneous fistula Patient is a 73-year-old female who was brought into the ER at [facility] for the patient complaining of generalized weakness patient noticed to have sacral pressure ulcer and also complicate diverticulitis with a fistula to the left lower abdominal wall.Patient was taken to the OR on 12/06/2023 and this patient was status post exploratory laparotomy with sigmoid colectomy takedown of the colocutaneous fistula left inguinal hernia repair and peritoneal lavage.Patient is status post Sharp excisional debridement with blade and scissor of 15 x 14 x 3 cm sacrococcygeal wound to muscle and bone, along with Bone biopsy of coccyx, completed on 12/26/2023. On today's evaluation that is 12/28/2023, Patient is afebrile patient is currently on 2 L nasal cannula oxygen and denies having any shortness of breath, the patient denies any chest pain or cough, the patient denies any nausea vomiting did not have any abdominal pain has been complaining of mostly pain to the left lower extremity not relieved with the Tylenol. Patient white count is 7.97, creatinine 0.5-sacral wound cultures are pending Objective - Vital Signs Vital signs: Vital Signs Temp 97.4 F L 12/28/23 13:10 Pulse 78 12/28/23 13:10 Resp 19 12/28/23 13:10 BP 112/65 12/28/23 13:10 Pulse Ox 99 12/28/23 13:10 FiO2 40 12/17/23 11:28 Intake & Output 12/27/23 12/28/23 12/28/23 18:59 06:59 18:59 Output Total 1550 475 Balance -1550 -475 Weight 81.3 kg Output: Urine 1300 475 Stool 250 Other: Voiding Method Indwelling Catheter Indwelling Catheter Indwelling Catheter ABP, PAP, CO, CI - Last Documented Arterial Blood Pressure 95/53 - Exam GENERAL DESCRIPTION: An elderly female lying in bed in no distress RESPIRATORY SYSTEM: Unlabored breathing , decreased breath sounds at bases HEART: S1 S2 regular rate and rhythm , ABDOMEN: Soft , no tenderness EXTREMITIES: No edema feet - Labs CBC & Chem 7: 12/28/23 06:35 12/28/23 06:35 Labs: Abnormal Lab Results - Last 24 Hours (Table) 12/28/23 12/28/23 Range/Units 06:35 06:35 RBC 3.04 L (4.10-5.20) X 10*6/uL Hgb 7.8 L (12.0-15.0) g/dL Hct 26.3 L (37.2-46.3) % MCH 25.7 L (27.0-32.0) pg MCHC 29.7 L (32.0-37.0) g/dL RDW 22.6 H (11.5-14.5) % Plt Count 665 H (140-440) X 10*3/uL Eosinophils # 0.46 H (0.04-0.35) X 10*3/uL Carbon Dioxide 35.9 H (21.6-31.8) mmol/L Creatinine 0.5 L (0.6-1.5) mg/dL BUN/Creatinine Ratio 21.60 H (12.00-20.00) Ratio Calcium 8.0 L (8.7-10.3) mg/dL Microbiology - Last 24 Hours (Table) 12/25/23 10:14 Anaerobic Culture - Preliminary Ascites Fluid 12/25/23 10:14 Gram Stain - Preliminary Ascites Fluid Body Fluid Culture - Preliminary Assessment and Plan (1) Diverticulitis of intestine, part unspecified, without perforation or abscess without bleeding Current Visit: Yes Status: Acute Code(s): K57.92 - DVTRCLI OF INTEST, PART UNSP, W/O PERF OR ABSCESS W/O BLEED SNOMED Code(s): 135728127 (2) Leukocytosis Current Visit: Yes Status: Acute Code(s): D72.829 - ELEVATED WHITE BLOOD CELL COUNT, UNSPECIFIED SNOMED Code(s): 615457959 (3) Sepsis Current Visit: Yes Status: Acute Code(s): A41.9 - SEPSIS, UNSPECIFIED O RGANISM SNOMED Code(s): 16597296 (4) Gram-negative bacteremia Current Visit: Yes Status: Acute Code(s): R78.81 - BACTEREMIA SNOMED Code(s): 769600963660 Plan: 1patient with complicated diverticulitis with evidence of fistulous communication to the skin left lower quadrant area and concern for possible extension to the bladder, will need to cover for the polymicrobial jessie associated with such condition including enteric gram-negative both aerobes and anaerobes 2-Fusobacterium 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 that is beta-lactamase negative repeat blood culture has been negative so far 3-patient is status post extensive surgery including 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 4patient sputum culture grew Romelia bronchoscopy culture also grew Romelia as well as abdominal culture growing Romelia albicans 5-patient did have elevated platelet count CT abdominal pelvis did show worsening anasarca localized fluid collection within the left mid abdominal wall and worsening of the sacral ulcer exposing the bony surface of the coccyx, patient is status post debridement of the sacral wound down to the bones along with bone biopsy and culture which are currently pending 6- we will continue with Unasyn and Eraxis with the discharge antibiotic on the basis of OR culture Dictation was produced using [employer] dictation software. please excuse any grammatical, word or spelling errors. Time with Patient: Less than 30
--- NOTE | 2023-12-28 16:37 | XR ---
EXAMINATION TYPE: XR chest 1V portable DATE OF EXAM: 12/28/2023 COMPARISON: 12/18/2023 HISTORY: Shortness of breath TECHNIQUE: Single frontal view of the chest is obtained. FINDINGS: Diffuse interstitial pattern with bilateral consolidation and small effusion superimposed on a background COPD. Left-sided PICC line stable. Heart is stable and within normal limits. Atherosc lerotic change aorta. Underlying COPD since yesterday. Osteopenia and arthritic change of the shoulde rs. Degenerative change of the spine. IMPRESSION: [place] 1. Bilateral infiltrate and pleural effusion correlate for mild CHF. Underlying pneumonia also the di fferential diagnosis.
[2023-12-28] MEDS: HEPARIN SODIUM,PORCINE 5,000 UNIT/ML 1 ML VIAL SQ SCH (19:54)
--- NOTE | 2023-12-28 19:55 | PN ---
PROGRESS NOTE DATE OF SERVICE: 12/28/2023 SUBJECTIVE: This 73-year-old woman was admitted with acute sigmoid colitis, perforation , also had multiple fistulous. The patient was closely monitored. The patient was seen by multiple consultants. Hemoglobin 7.8 at this time. The patient underwent paracentesis. A chest x-ray on 12/17, showed opacification on the left side. The CT showed large abdominal free fluid, anasarca, multiple findings. REVIEW OF SYSTEMS: A 14-point review is negative except as mentioned above. CURRENT MEDICATIONS: Reviewed, include PHYSICAL EXAMINATION: VITAL SIGNS: Pulse is 72, blood pressure n respirations 18. HEENT: Conjunctivae normal. NECK: No carotid bruits. RESPIRATIONS: Diminished at the bases. ABDOMEN: Soft. Distended. LEGS: No edema. NERVOUS SYSTEM: Diffusely weak. LABORATORY DATA: Reviewed. ASSESSMENT: 1. Acute sigmoid colitis with diverticulitis with proctitis and perforation. 2. Multiple enterocutaneous, enterovesical fistula. 3. Ascites, status post aspiration. 4. Septic shock. 5. Acute hypoxic respiratory failure. 6. Left lung collapse due secondary to mucus plug. 7. Status post bronchoscopy. 8. Klebsiella urinary tract infection. 9. Atrial ablation with fast ventricular rate. 10.Pressure ulcers, left upper buttock. 11.Multiple complex medical issues. RECOMMENDATIONS: Recommend to continue current medications. I would recommend repeat chest x- ray. Continue the antibiotics, which is a combination of Unasyn and antifungal regimen. BAL showed Romelia. Blood cultures were negative. . Romelia from the bronchial aspirate. See orders for details. MMODL / IJN: [id number] / MTDD
[2023-12-28] MEDS: HYDROcodone/APAP 5-325MG 1 EACH TAB PO PRN (21:14)
[2023-12-29 10:03] LABS: HCT 25.7 % (37.2-46.3); HGB 7.6 g/dL (12.0-15.0); MCH 25.9 pg (27.0-32.0); MCHC 29.6 g/dL (32.0-37.0); MCV 87.7 FL (80.0-97.0); Mean Platelet Volume 9.5 FL (9.5-12.2); Platelet Count 731 X 10*3/uL (140-440); RBC 2.93 X 10*6/uL (4.10-5.20); RDW 22.1 % (11.5-14.5); WBC 7.92 X 10*3/uL (4.50-10.00)
[2023-12-29 10:04] LABS: Basophils # (A) 0.04 X 10*3/uL (0.00-0.10); Basophils % (A) 0.5 %; Eosinophils % (A) 5.1 %; Lymphocytes # (A) 1.33 X 10*3/uL (0.90-5.00); Lymphocytes % (A) 16.8 %; Monocytes # (A) 0.69 X 10*3/uL (0.20-1.00); Monocytes % (A) 8.7 %; NRBC Per 100 WBC 0 X 10*3/uL (0.00-0.01); Neutrophils # (A) 5.41 X 10*3/uL (1.80-7.70); Neutrophils % (A) 68.3 %
[2023-12-29 10:10] LABS: Blood Urea Nitrogen 10.8 mg/dL (9.0-27.0); Glucose 94 mg/dL (70-110)
[2023-12-29 10:11] LABS: ALT 11 U/L (8-44); AST 23 U/L (13-35); Albumin/Globulin Ratio 0.87 Ratio (1.60-3.17); Alkaline Phosphatase 89 U/L (41-126); Calcium 8.2 mg/dL (8.7-10.3); Carbon Dioxide 38.7 mmol/L (21.6-31.8); Chloride 100 mmol/L (96-109); Globulin 2.3 g/dL (1.6-3.3); Sodium 146 mmol/L (135-145); Total Bilirubin <0.2 mg/dL (0.3-1.2); Total Protein 4.3 g/dL (6.2-8.2)
[2023-12-29] MEDS ORDERED: Potassium Replacement Protocol 1 EACH MISC MISCELLANE PRN ×2 (11:45→14:10)
[2023-12-29] MEDS: POTASSIUM CHLORIDE ER 20 MEQ TAB.ER PO SCH ×2 (12:19→19:09)
[2023-12-29] MEDS ORDERED: Magnesium Replacement Protocol 1 EACH MISC MISCELLANE PRN (14:10)
[2023-12-29] MEDS: FUROSEMIDE 10 MG/ML 2 ML VIAL IV ONE (15:32)
--- NOTE | 2023-12-29 16:01 | P.PN ---
Subjective Progress Note Date: 12/29/23 Principal diagnosis: Clinically stable. Wound VAC working. Denies any moderate abdominal pain. Tolerating diet. Ostomy functioning. Continue wound VAC for abdominal wound, left groin and sacrum. Pending bone biopsy results. Objective - Vital Signs Vital signs: Vital Signs Temp 97.6 F 12/29/23 13:15 Pulse 76 12/29/23 13:15 Resp 17 12/29/23 13:15 BP 102/60 12/29/23 13:15 Pulse Ox 99 12/29/23 13:15 FiO2 40 12/17/23 11:28 Intake & Output 12/28/23 12/29/23 12/29/23 18:59 06:59 18:59 Output Total 1999 Balance -1999 Weight 81.4 kg Output: Urine 1999 Uretheral (Gill) 1999 Other: Voiding Method Indwelling Catheter Indwelling Catheter Indwelling Catheter ABP, PAP, CO, CI - Last Documented Arterial Blood Pressure 95/53 - Labs CBC & Chem 7: 12/29/23 05:48 12/29/23 05:48 Labs: Abnormal Lab Results - Last 24 Hours (Table) 12/29/23 12/29/23 Range/Units 05:48 05:48 RBC 2.93 L (4.10-5.20) X 10*6/uL Hgb 7.6 L (12.0-15.0) g/dL Hct 25.7 L (37.2-46.3) % MCH 25.9 L (27.0-32.0) pg MCHC 29.6 L (32.0-37.0) g/dL RDW 22.1 H (11.5-14.5) % Plt Count 731 H (140-440) X 10*3/uL Immature Gran # 0.05 H (0.00-0.04) X 10*3/uL Eosinophils # 0.40 H (0.04-0.35) X 10*3/uL Sodium 146 H (135-145) mmol/L Potassium 3.0 L (3.5-5.5) mmol/L Carbon Dioxide 38.7 H (21.6-31.8) mmol/L Creatinine 0.5 L (0.6-1.5) mg/dL BUN/Creatinine Ratio 21.60 H (12.00-20.00) Ratio Calcium 8.2 L (8.7-10.3) mg/dL Total Bilirubin <0.2 L (0.3-1.2) mg/dL Total Protein 4.3 L (6.2-8.2) g/dL Albumin 2.0 L (3.8-4.9) g/dL Albumin/Globulin Ratio 0.87 L (1.60-3.17) Ratio Microbiology - Last 24 Hours (Table) 12/25/23 10:14 Gram Stain - Preliminary Ascites Fluid Body Fluid Culture - Preliminary
--- NOTE | 2023-12-29 16:38 | P.PN ---
Subjective Progress Note Date: 12/29/23 Principal diagnosis: Reason for follow-up is complicated diverticulitis with colocutaneous fistula Patient is a 73-year-old female who was brought into the ER at [facility] for the patient complaining of generalized weakness patient noticed to have sacral pressure ulcer and also complicate diverticulitis with a fistula to the left lower abdominal wall.Patient was taken to the OR on 12/06/2023 and this patient was status post exploratory laparotomy with sigmoid colectomy takedown of the colocutaneous fistula left inguinal hernia repair and peritoneal lavage.Patient is status post Sharp excisional debridement with blade and scissor of 15 x 14 x 3 cm sacrococcygeal wound to muscle and bone, along with Bone biopsy of coccyx, completed on 12/26/2023. On today's evaluation that is 12/29/2023, patient has been afebrile, patient is breathing comfortably and is currently on 2 L nasal cannula oxygen, patient denies having any significant cough no chest pain shortness of breath, patient denies nausea vomiting or diarrhea and no abdominal pain has been complaining of pain to the left lower extremity mention controlled today. Patient white count is 7.92, creatinine 0.5 Objective - Vital Signs Vital signs: Vital Signs Temp 97.6 F 12/29/23 13:15 Pulse 76 12/29/23 13:15 Resp 17 12/29/23 13:15 BP 102/60 12/29/23 13:15 Pulse Ox 99 12/29/23 13:15 FiO2 40 12/17/23 11:28 Intake & Output 12/28/23 12/29/23 12/29/23 18:59 06:59 18:59 Output Total 1999 Balance -1999 Weight 81.4 kg Output: Urine 1999 Uretheral (Gill) 1999 Other: Voiding Method Indwelling Catheter Indwelling Catheter Indwelling Catheter ABP, PAP, CO, CI - Last Documented Arterial Blood Pressure 95/53 - Exam GENERAL DESCRIPTION: An elderly female lying in bed in no distress RESPIRATORY SYSTEM: Unlabored breathing , decreased breath sounds at bases HEART: S1 S2 regular rate and rhythm , ABDOMEN: Soft , no tenderness EXTREMITIES: No edema feet - Labs CBC & Chem 7: 12/29/23 05:48 12/29/23 05:48 Labs: Abnormal Lab Results - Last 24 Hours (Table) 12/29/23 12/29/23 Range/Units 05:48 05:48 RBC 2.93 L (4.10-5.20) X 10*6/uL Hgb 7.6 L (12.0-15.0) g/dL Hct 25.7 L (37.2-46.3) % MCH 25.9 L (27.0-32.0) pg MCHC 29.6 L (32.0-37.0) g/dL RDW 22.1 H (11.5-14.5) % Plt Count 731 H (140-440) X 10*3/uL Immature Gran # 0.05 H (0.00-0.04) X 10*3/uL Eosinophils # 0.40 H (0.04-0.35) X 10*3/uL Sodium 146 H (135-145) mmol/L Potassium 3.0 L (3.5-5.5) mmol/L Carbon Dioxide 38.7 H (21.6-31.8) mmol/L Creatinine 0.5 L (0.6-1.5) mg/dL BUN/Creatinine Ratio 21.60 H (12.00-20.00) Ratio Calcium 8.2 L (8.7-10.3) mg/dL Total Bilirubin <0.2 L (0.3-1.2) mg/dL Total Protein 4.3 L (6.2-8.2) g/dL Albumin 2.0 L (3.8-4.9) g/dL Albumin/Globulin Ratio 0.87 L (1.60-3.17) Ratio Microbiology - Last 24 Hours (Table) 12/25/23 10:14 Gram Stain - Preliminary Ascites Fluid Body Fluid Culture - Preliminary Assessment and Plan (1) Diverticulitis of intestine, part unspecified, without perforation or abscess without bleeding Current Visit: Yes Status: Acute Code(s): K57.92 - DVTRCLI OF INTEST, PART UNSP, W/O PERF OR ABSCESS W/O BLEED SNOMED Code(s): 985540082 (2) Leukocytosis Current Visit: Yes Status: Acute Code(s): D72.829 - ELEVATED WHITE BLOOD CELL COUNT, UNSPECIFIED SNOMED Code(s): 953237922 (3) Sepsis Current Visit: Yes Status: Acute Code(s): A41.9 - SEPSIS, UNSPECIFIED ORGANISM SNOMED Code(s): 04639515 (4) Gram-negative bacteremia Current Visit: Yes Status: Acute Code(s): R78.81 - BACTEREMIA SNOMED Code(s): 037813041283 Plan: 1patient with complicated diverticulitis with evidence of fistulous communication to the skin left lower quadrant area and concern for possible extension to the bladder, will need to cover for the polymicrobial jessie associated with such condition including enteric gram-negative both aerobes and anaerobes 2-Fusobacterium 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 that is beta-lactamase negative repeat blood culture has been negative so far 3-patient is status post extensive surgery including 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 4patient sputum culture grew Romelia bronchoscopy culture also grew Romelia as well as abdominal culture growing Romelia albicans 5-patient did have elevated platelet count CT abdominal pelvis did show worsening anasarca localized fluid collection within the left mid abdominal wall and worsening of the sacral ulcer exposing the bony surface of the coccyx, patient is status post debridement of the sacral wound down to the bones along with bone biopsy and culture which are currently pending 6-patient currently covered with Unasyn and Eraxis discharge debated on the basis of sacral wound culture Dictation was produced using [employer] dictation software. please excuse any grammatical, word or spelling errors. Time with Patient: Less than 30
--- NOTE | 2023-12-29 22:10 | PN ---
PROGRESS NOTE DATE OF SERVICE: 12/29/2023 SUBJECTIVE: This is a 73-year-old woman, who was admitted with acute sigmoid colitis with diverticulitis and perforation, is complaining also of pain. The patient also had septic shock and multiple other complex medical issues. Also, a chest x-ray done yesterday showed some infiltrate versus atelectasis mainly on the right lower lobe. CHF is also a consideration. PAST MEDICAL HISTORY: Reviewed. REVIEW OF SYSTEMS: 14-point review systems negative except as mentioned earlier. CURRENT MEDICATIONS: Reviewed . PHYSICAL EXAMINATION: VITAL SIGNS: Pulse 76, blood pressure n, respirations 17. CHEST: Bilateral scattered rhonchi and crackles. ABDOMEN: Soft, status post surgery. LEGS: No edema. NERVOUS SYSTEM: Nonfocal. LABORATORY DATA: Sodium is 146, potassium 3. Rest of the labs are noted. ASSESSMENT: 1. Acute sigmoid colitis, diverticulitis with proctitis and perforation. 2. Multiple enterocutaneous and enterovesical fistula. 3. Possible congestive heart failure. 4. Ascites, status post aspiration. 5. Septic shock. 6. Acute hypoxic respiratory failure. 7. Left lung collapse secondary to mucus plug. 8. Status post bronchoscopy. 9. Klebsiella urinary tract infection. 10.Atrial fibrillation with fast ventricular rate. 11.Pressure ulcers, left upper buttock. 12.Pain. 13.Multiple complex medical issues. RECOMMENDATIONS: Recommend to continue current management. Continue symptomatic treatment. Otherwise, continue the antibiotics, antifungals. Blood pressure is very borderline. I recommend a small dose of Lasix and continue to monitor repeat labs in the morning and cultures are showing multiple organisms including Romelia. The most recent cultures are negative and further recommendations to follow. MMODL / IJN: [id number] / [facility]
[2023-12-30 07:00] LABS: ALT 12 U/L (4-34); AST 31 U/L (14-36); African American GFR (CKD) >90 (>60 ml/min/1.73 sqM); Albumin 1.9 g/dL (3.5-5.0); Albumin/Globulin Ratio 0.7; Alkaline Phosphatase 98 U/L (38-126); Anion Gap 0 mmol/L; Blood Urea Nitrogen 14 mg/dL (7-17); Calcium 7.9 mg/dL (8.4-10.2); Carbon Dioxide 35 mmol/L (22-30); Chloride 100 mmol/L (98-107); Globulin 2.7 g/dL; Glucose 81 mg/dL (74-99); Magnesium 1.7 mg/dL (1.6-2.3); Non-African American GFR(CKD) >90 (>60 ml/min/1.73 sqM); Sodium 135 mmol/L (137-145); Total Bilirubin 0.3 mg/dL (0.2-1.3); Total Protein 4.6 g/dL (6.3-8.2)
[2023-12-30 12:21] LABS: Basophils % (A) 1.3 %; Eosinophils # (A) 0.41 X 10*3/uL (0.04-0.35); Eosinophils % (A) 5.2 %; HCT 28.7 % (37.2-46.3); HGB 8.4 g/dL (12.0-15.0); Lymphocytes # (A) 1.53 X 10*3/uL (0.90-5.00); Lymphocytes % (A) 19.2 %; MCH 25.6 pg (27.0-32.0); MCHC 29.3 g/dL (32.0-37.0); MCV 87.5 FL (80.0-97.0); Mean Platelet Volume 9.6 FL (9.5-12.2); Monocytes % (A) 7.5 %; NRBC Per 100 WBC 0 X 10*3/uL (0.00-0.01); Neutrophils # (A) 5.23 X 10*3/uL (1.80-7.70); Neutrophils % (A) 65.7 %; Platelet Count 843 X 10*3/uL (140-440); RBC 3.28 X 10*6/uL (4.10-5.20); RBC Morphology Normal (Normal); RDW 21.9 % (11.5-14.5); WBC 7.96 X 10*3/uL (4.50-10.00)
[2023-12-30] MEDS: FOLIC ACID 1 MG TAB PO SCH (13:41)
[2023-12-30] MEDS: MULTIVITAMINS, THERA 1 EACH TAB PO SCH (13:41)
[2023-12-30] MEDS: THIAMINE 100 MG TAB PO SCH (13:41)
[2023-12-30] MEDS ORDERED: guaiFENesin SYRUP 100MG/5ML 200 MG/10 ML CUP PO PRN (14:05)
--- NOTE | 2023-12-30 14:25 | P.PN ---
Subjective Progress Note Date: 12/30/23 73 years old female who presents to the emergency room for lower abdominal fistula drainage, associated with generalized weakness. Patient looks awake alert but tired looking, pale. Feels generally weak. N has mild generalized abdominal pain and tenderness. No rebound tenderness. Blood with malodorous left lower abdominal fistula drainage with fecal material coming out. Patient also with right rotation. Patient also with unstageable sacral pressure ulcer. With some evidence of cellulitis. Patient is mildly confused. But no headache or weakness in upper or lower patient was hypotensive with a blood pressure/42, currently slightly better 96/43. Potassium is low 2.9, WBC elevated 23,000, hemoglobin 7.4. Creatinine 0.7. Liver enzymes unremarkable. CT of the abdomen pelvis showing sigmoid diverticulitis and proctitis. 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 Please refer to the report for more details. Patient was ordered received normal saline boluses. Currently on Normosol at 130 mL/h She received 1 dose of Zosyn and started on Flagyl. We are going to add cefepime for gram-negative coverage. 12/21/2023 Patient is seen and evaluated in follow-up on the regular medical floor. She is currently sitting up in bed. Awake and alert in no acute distress. -- Remains on O2 at 4 L per nasal cannula maintaining O2 saturations in the mid 90s. She is afebrile. Hemodynamically stable. She has normal staying at KVO. --She continues on Unasyn and Eraxis. -White count 7.9. Hemoglobin 7.7. Platelets 601. Sodium 145. Potassium 3.6. Bicarb 32. BUN 18. Creatinine 0.5. Glucose 101. She remains on IV diuretics. She is currently in a -3.6 L balance. 12/22/2023 the patient is seen and evaluated in room at bedside; continues to be afebrile, the patient is on 4 L nasal cannula oxygen and breathing comfortably, the Pt has been complaining of right ear and nasal stuffiness, denies having any chest pain or cough, the patient denies having any abdominal pain no vomiting or any diarrhea has been reported. 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 Patient is on the medical surgical unit with extensive wounds noted to the abdomen including wound VAC on the left groin for a fistula and ostomy with stool noted. Patient with extensive abdominal drainage. Surgical site with umang noted with no significant redness or drainage noted. Patient is maintained on antibiotics with infectious disease following and repeat cultures thus far showing Romelia maintained on antifungals along with antibiotics. Patient sensitive wounds to the decubitus area unstageable on admission and has worsened during hospitalization with extensive tunneling and some drainage noted that is nonpurulent. With surgery following with the need for possible debridement. Repeat CT abdomen is ordered as well per surgery as patient continues to have pain and distention. Patient is currently afebrile with no reports of worsening shortness of breath. Currently rate controlled medications and will continue to monitor closely. Patient has refused hospice and would like to go to rehab. Case management following working on discharge planning and patient will also require insurance authorization. 12/24/2023 Patient is seen in follow-up today with general surgery following. Patient underwent repeat CT abdomen showing significant ascites and interventional rad iology being for possible drainage and recommend fluid analysis. Infectious disease following patient is maintained on antibiotics along with antifungals and will continue. Patient with extensive unstageable sacral decubitus ulcer in need of debridement and tentatively scheduled for debridement with Dr. Trivedi on 12/26/2023. Hold anticoagulation for the procedure. Patient is currently afebrile with no reported chest pain or worsening shortness of breath. Encouraged oral intake and recommend PT/OT therapy daily. Patient is significantly weak and has had prolonged hospitalization. Plans on going to [facility] for continued ability. Case management is following as patient will require insurance authorization. 12/25/2023 Patient is seen and evaluated in follow-up today remains lethargic although arousable. Patient underwent paracentesis with approximately 2 L removed for ascites with interventional radiology today. Fluid sent for analysis. Patient is also scheduled to undergo debridement of the unstageable decubitus ulcer with Dr. Trivedi tomorrow would recommend holding anticoagulation and n.p.o. at midnight. Patient needs encouragement with increased activity and oral intake. Electrolytes reveal a potassium of 3.1 and magnesium 1.7 and will replace per protocol. Will follow-up on repeat labs and continue to replace as needed. Encouraged oral intake. Prognosis remains extremely guarded 12/26/2023 Patient is seen in follow-up this morning scheduled to undergo excisional debridement of the decubitus ulcer with Dr. Trivedi today. Patient is currently n.p.o. and awaiting the procedure. Patient continues on antibiotics with infectious disease following as well as antifungals. Currently awaiting deep tissue cultures to determine appropriate antibiotic use on discharge. Patient with extensive sacral decubitus ulcer will need intense wound care physical therapy. Patient is currently afebrile no reports of chest pain or shortness of breath. Will await surgical report 12/27/2023 Patient is seen in follow-up today status post excisional debridement of the extensive decubitus ulcer. After debridement and evaluation, stage IV sacral ulcer with bony involvement with concerns of osteomyelitis requiring wound VAC. Patient did have a bone biopsy as well as deep cultures which are currently pending. Patient is continued on antibiotics along with Eraxis and awaiting cultures to finalize discharge antibiotics. Patient needs extensive wound care and continuous encouraged oral intake. Patient is not eating adequately and continues to be extremely weak and would recommend aggressive physical therapy. Patient is currently afebrile with no reported chest pain or shortness of breath. 12/30/2023 Patient is seen and evaluated in follow-up with general surgery and infectious disease following maintained on antibiotics along with antifungals. Patient is status post sharp excisional debridement with bone tissue sent and currently remains pending for pathology. Patient continues with multiple wound vacs in place and will need continued extensive wound care. Will discuss further with infectious disease regarding discharge planning antibiotics and treatment plan moving forward. Overall prognosis is poor and guarded at this time. Patient is afebrile and denies any chest pain or shortness of breath. Patient is tolerating diet and would recommend aspiration precautions and supervision with meals. Case management following working on [facility] Review of systems: Constitutional: reports of fatigue, no fever, or chills Cardiovascular: No reports of chest pain or palpitations Respiratory: No reports of worsening shortness of breath or cough GI: No reports of nausea, vomiting, or diarrhea, not much oral intake, no appetite : No reports of dysuria or retention Neurovascular: reports of extreme weakness All medications have been reviewed Active Medications Acetaminophen (Acetaminophen Tab 325 Mg Tab) 650 mg PO Q6HR PRN PRN Reason: Mild Pain or Fever > 100.5 Last Admin: 12/29/23 20:13 Dose: 650 mg Hydrocodone Bitart/Acetaminophen (Hydrocodone/Apap 5-325mg 1 Each Tab) 1 each PO Q6HR PRN PRN Reason: Pain Last Admin: 12/30/23 11:21 Dose: 1 each Amiodarone HCl (Amiodarone 200 Mg Tab) [address] [facility] Last Admin: 12/30/23 08:46 Dose: 200 mg Folic Acid (Folic Acid 1 Mg Tab) 1 mg PO DAILY@1200 [facility] Last Admin: 12/30/23 13:41 Dose: 1 mg Furosemide (Furosemide 10 Mg/Ml 4 Ml Vial) [address] [facility] Last Admin: 12/30/23 08:46 Dose: 40 mg Guaifenesin (Guaifenesin Syrup 100mg/5ml 200 Mg/10 Ml Cup) 400 mg PO TID PRN PRN Reason: Cough Heparin Sodium (Porcine) (Heparin Sodium,Porcine 5,000 Unit/Ml 1 Ml Vial) 5,[address] [facility] Last Admin: 12/30/23 08:46 Dose: 5,000 unit Anidulafungin 100 mg/ Sodium (Chloride) 100 mls @ 84 mls/hr IVPB DAILY@1600 [facility]; Protocol Last Admin: 12/29/23 15:33 Dose: 84 mls/hr Ampicillin Sodium/Sulbactam (Sodium 3 gm/ Sodium Chloride) 100 mls @ 200 mls/hr IVPB Q6HR [facility]; Protocol Last Admin: 12/30/23 11:20 Dose: 200 mls/hr Lactated Ringer's (Lactated Ringers) 1,000 mls @ 20 mls/hr IV .Q24H [facility] Last Admin: 12/29/23 08:58 Dose: Not Given Lorazepam (Lorazepam 2 Mg/Ml Inj) 0.5 mg IV Q4HR PRN PRN Reason: Anxiety Miscellaneous Information (Magnesium Replacement Protocol 1 Each Misc) 1 each MISCELLANE DAILY PRN; Protocol PRN Reason: Per Protocol Miscellaneous Information (Potassium Replacement Protocol 1 Each Misc) 1 each MISCELLANE DAILY PRN; Protocol PRN Reason: Per Protocol Multivitamins (Multivitamins, Thera 1 Each Tab) 1 each PO DAILY@1200 [facility] Last Admin: 12/30/23 13:41 Dose: 1 each Naloxone HCl (Naloxone 0.4 Mg/Ml 1 Ml Vial) 0.2 mg IV Q2M PRN PRN Reason: Opioid Reversal Nystatin (Nystatin 100,000 Unit/Gm Powd 15 Gm) [address] [facility] Last Admin: 12/30/23 08:47 Dose: 1 applic Pantoprazole Sodium (Pantoprazole 40 Mg/10 Ml Vial) [address] [facility] Last Admin: 12/30/23 08:46 Dose: 40 mg Petrolatum (Zinc Oxide Paste (Z-Guard) 1 Applic) 1 applic TOPICAL BID PRN; Protocol PRN Reason: Wound Healing Thiamine HCl (Thiamine 100 Mg Tab) 100 mg PO DAILY@1200 [facility] Last Admin: 12/30/23 13:41 Dose: 100 mg Physical exam: Gen: This is a 73-year-old female who is asleep although arousable, alert and oriented x 2-3, ill-appearing, well developed, elderly appearing HEENT: Head is atraumatic, normocephalic. Pupils equal, round. Sclerae is anicteric. NECK: Supple. No JVD. No lymphadenopathy. No thyromegaly. LUNGS: Diminished breath sounds bilaterally otherwise clear to auscultation. No wheezes or rhonchi. No intercostal retractions. HEART: S1, S2 are muffled ABDOMEN: Soft. Distended. bowel sounds are present. No masses. tenderness noted throughout. Surgical dressing is dry and umang noted with no significant redness or drainage noted, ostomy noted with stool in the left, wound VAC noted in the left groin EXTREMITIES: Bilateral lower extremity edema. No calf tenderness. NEUROLOGICAL: Patient is asleep although arousable, alert and oriented x2. Cranial nerves 2 through 12 are grossly intact. Diffusely weak Assessment: Acute sigmoid colitis, diverticulitis with proctitis and perforation. With multiple entero-cutaneous and entero-vesical fistulas, including to the left lower abdominal wall. Status post colostomy Septic shock secondary to above, Improved Acute hypoxic respiratory failure requiring intubation and mechanical ventilation. S/p extubation on 12/24. Patient is continued on 4L via NC Left lung collapse secondary to mucous plugging status post bronchoscopy and lavage of left lung. Done on 12/10/2023 and also on 12/15/2023 Klebsiella urinary tract infection New onset A-fib and RVR, currently rate controlled Acute kidney injury, Improved no more need for dialysis Acute anemia, unknown baseline, chronic microcytic. S/p units of PRBC transfusion pressure ulcer, left upper buttock, present on admission, stage II Unstageable sacrococcygeal pressure ulcer, present on admission , status post excisional debridement and noted to be stage IV sacral decubitus ulcer with coccyx bony involvement, status post biopsy and deep tissue cultures obtained Bone exposed on the coccyx status post debridement, most likely osteomyelitis Metabolic encephalopathy, with possible elements of delirium, improving Bilateral adrenal nodule, recommend follow-up CT in 3 months. Severe protein calorie malnutrition with a BMI of 29.9 Hydropic gallbladder with multiple gallstones Anasarca With severe hypoalbuminemia and ascites status post paracentesis on 12/25/2023 with approximately 2 L removed Suspect critical illness polyneuropathy GI prophylaxis DVT prophylaxis No code Plan: Patient is continued on antibiotics with infectious disease following also maintained on antifungals as culture showing Romelia. Awaiting finalized cultures from excisional debridement with surgery to discuss further with infectious disease on discharge planning. Patient will continue to require extensive wound care with 3 wound vacs to the abdomen groin and coccyx. Patient is status post excisional debridement with general surgery and awaiting biopsy results and cultures Patient is status post paracentesis with approximately 2 L removed on 12/25/2023. Fluid sent for analysis is negative Patient remains on 4 L via nasal cannula Patient is being currently on Lasix 40 mg IV daily. Most recent chest x-ray shows some atelectasis likely Pulmonary following as well Patient is on Eliquis and oral amiodarone for new onset atrial fibrillation with RVR. currently rate controlled. HOLD eliquis for debridement on 12/25. Will discuss with surgery when to resume anticoagulation. Patient will continue on subcutaneous heparin for now Due to multiple complex medical issues prognosis is extremely poor and guarded, CODE STATUS DNR/DNI, Patient has declined any further BiPAP, bronchoscopy, reintubation. Patient is refusing hospice at this time The impression and plan of care has been dictated by Irene Israel, Nurse Practitioner as directed. Dr. Rodríguez MD I have performed a history and examination and MDM of this patient, discussed the same with the dictator, and agree with the dictator's assessment and plan as written ,documented as a scribe. Based on total visit time, I have performed more than 50% of the visit. Objective - Vital Signs Vital signs: Vital Signs Temp 98.4 F 12/30/23 08:00 Pulse 77 12/30/23 08:46 Resp 17 12/30/23 08:46 BP 111/64 12/30/23 08:00 Pulse Ox 99 12/30/23 08:27 FiO2 40 12/17/23 11:28 Intake & Output 12/29/23 12/30/23 12/30/23 18:59 06:59 18:59 Output Total 1999 1165 1600 Balance -1999 -1165 -1600 Output: Drainage 75 Abdomen 25 Buttock 50 Urine 1999 1050 1600 Uretheral (Gill) 1999 500 Stool 40 Other: Voiding Method Indwelling Catheter Indwelling Catheter Indwelling Catheter ABP, PAP, CO, CI - Last Documented Arterial Blood Pressure 95/53 - Labs CBC & Chem 7: 12/30/23 07:45 12/30/23 05:58 Labs: Abnormal Lab Results - Last 24 Hours (Table) 12/30/23 12/30/23 Range/Units 05:58 07:45 RBC 3.28 L (4.10-5.20) X 10*6/uL Hgb 8.4 L (12.0-15.0) g/dL Hct 28.7 L (37.2-46.3) % MCH 25.6 L (27.0-32.0) pg MCHC 29.3 L (32.0-37.0) g/dL RDW 21.9 H (11.5-14.5) % Plt Count 843 H (140-440) X 10*3/uL Immature Gran # 0.09 H (0.00-0.04) X 10*3/uL Eosinophils # 0.41 H (0.04-0.35) X 10*3/uL Sodium 135 L (137-145) mmol/L Carbon Dioxide 35 H (22-30) mmol/L Calcium 7.9 L (8.4-10.2) mg/dL Total Protein 4.6 L (6.3-8.2) g/dL Albumin 1.9 L (3.5-5.0) g/dL Microbiology - Last 24 Hours (Table) 12/25/23 10:14 Anaerobic Culture - Final Ascites Fluid 12/25/23 10:14 Gram Stain - Final Ascites Fluid Body Fluid Culture - Final
--- NOTE | 2023-12-30 15:27 | P.PN ---
Subjective Progress Note Date: 12/30/23 CHIEF COMPLAINT: Perforated diverticular disease with fistulization to the skin HISTORY OF PRESENT ILLNESS: The patient is a 67-zwov-[age]-year-old female status post exploratory laparotomy, Magaña's procedure for colocutaneous fistula and septic shock. Patient is status post debridement of unstageable sacrococcygeal ulcer. Bone biopsy also taken. Patient lying in bed comfortably. Wound vacs are intact. They are working on ECF placement. Afebrile. WBC 7.96 PHYSICAL EXAM: VITAL SIGNS: Reviewed GENERAL: no acute distress. HEENT: No sclera icterus. Extraocular movements grossly intact. Moist buccal mucosa. Head is atraumatic, normocephalic. Hears conversational speech. No nasal drainage. NECK: Supple without lymphadenopathy. CHEST: Non-labored respirations and equal bilateral excursions. CARDIOVASCULAR: Palpable 2+ radial pulses. ABDOMEN: Soft. Nondistended. Midline incision with Optifoam dressing clean dry and intact stoma beefy red. Stool in ostomy bag. Left lower abdomen wound VAC intact. MUSCULOSKELETAL: No clubbing or cyanosis. NEUROLOGIC: No focal or lateralizing signs. Cranial nerves II through XII grossly intact. ASSESSMENT: 1. Septic shock 2. 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 Lack of general medical care 4. Complicated left groin wound, 4 cm 5. Intermesenteric abscess, pelvis 6. Left inguinal hernia 7. Atrial fibrillation with rapid ventricular response 8. Collapsed left lung secondary to mucous plugging with prior bronchoscopy x 2 9. Unstageable sacrococcygeal ulcer 10. Thrombocytosis 11. Cholelithiasis noted on CAT scan. LFTs normal 12. Severe protein calorie malnutrition PLAN: -Patient can be discharged from surgical standpoint when medically cleared -Patient awaiting ECF placement -Continue wound vacs. Wound VAC to be changed today -Discharge antibiotics per ID service Physician Cost Engineer note has been reviewed by physician. Signing provider agrees with the documented findings, assessment, and plan of care. Objective - Vital Signs Vital signs: Vital Signs Temp 98.2 F 12/30/23 14:00 Pulse 76 12/30/23 14:00 Resp 16 12/30/23 14:00 BP 100/63 12/30/23 14:00 Pulse Ox 99 12/30/23 14:00 FiO2 40 12/17/23 11:28 Intake & Output 12/29/23 12/30/23 12/30/23 18:59 06:59 18:59 Output Total 1999 1165 1600 Balance -1999 Output: Drainage 75 Abdomen 25 Buttock 50 Urine 1999 1050 1600 Uretheral (Gill) 1999 500 Stool 40 Other: Voiding Method Indwelling Catheter Indwelling Catheter Indwelling Catheter ABP, PAP, CO, CI - Last Documented Arterial Blood Pressure 95/53 - Labs CBC & Chem 7: 12/30/23 07:45 12/30/23 05:58 Labs: Abnormal Lab Results - Last 24 Hours (Table) 12/30/23 12/30/23 Range/Units 05:58 07:45 RBC 3.28 L (4.10-5.20) X 10*6/uL Hgb 8.4 L (12.0-15.0) g/dL Hct 28.7 L (37.2-46.3) % MCH 25.6 L (27.0-32.0) pg MCHC 29.3 L (32.0-37.0) g/dL RDW 21.9 H (11.5-14.5) % Plt Count 843 H (140-440) X 10*3/uL Immature Gran # 0.09 H (0.00-0.04) X 10*3/uL Eosinophils # 0.41 H (0.04-0.35) X 10*3/uL Sodium 135 L (137-145) mmol/L Carbon Dioxide 35 H (22-30) mmol/L Calcium 7.9 L (8.4-10.2) mg/dL Total Protein 4.6 L (6.3-8.2) g/dL Albumin 1.9 L (3.5-5.0) g/dL Microbiology - Last 24 Hours (Table) 12/25/23 10:14 Anaerobic Culture - Final Ascites Fluid 12/25/23 10:14 Gram Stain - Final Ascites Fluid Body Fluid Culture - Final
--- NOTE | 2023-12-30 17:52 | P.PN ---
Subjective Progress Note Date: 12/30/23 Principal diagnosis: Reason for follow-up is complicated diverticulitis with colocutaneous fistula Patient is a 73-year-old female who was brought into the ER at [facility] for the patient complaining of generalized weakness patient noticed to have sacral pressure ulcer and also complicate diverticulitis with a fistula to the left lower abdominal wall.Patient was taken to the OR on 12/06/2023 and this patient was status post exploratory laparotomy with sigmoid colectomy takedown of the colocutaneous fistula left inguinal hernia repair and peritoneal lavage.Patient is status post Sharp excisional debridement with blade and scissor of 15 x 14 x 3 cm sacrococcygeal wound to muscle and bone, along with Bone biopsy of coccyx, completed on 12/26/2023. On today's evaluation that is 12/30/2023,the patient denies any fever or any chills, patient is breathing comfortably on 2 L nasal cannula oxygen the patient denies chest pain shortness of breath and no significant cough, patient denies abdominal pain, no nausea vomiting has been complaining of left knee being locked out. Patient white count 7.96 creatinine 0.59 Objective - Vital Signs Vital signs: Vital Signs Temp 98.4 F 12/30/23 08:00 Pulse 77 12/30/23 08:46 Resp 17 12/30/23 08:46 BP 111/64 12/30/23 08:00 Pulse Ox 99 12/30/23 08:27 FiO2 40 12/17/23 11:28 Intake & Output 12/29/23 12/30/23 12/30/23 18:59 06:59 18:59 Output Total 1999 1165 1600 Balance -19991165 -1600 Output: Drainage 75 Abdomen 25 Buttock 50 Urine 1999 1050 1600 Uretheral (Gill) 1999 500 Stool 40 Other: Voiding Method Indwelling Catheter Indwelling Catheter Indwelling Catheter ABP, PAP, CO, CI - Last Documented Arterial Blood Pressure 95/53 - Exam GENERAL DESCRIPTION: An elderly female lying in bed in no distress RESPIRATORY SYSTEM: Unlabored breathing , decreased breath sounds at bases HEART: S1 S2 regular rate and rhythm , ABDOMEN: Soft , no tenderness EXTREMITIES: No edema feet - Labs CBC & Chem 7: 12/30/23 07:45 12/30/23 05:58 Labs: Abnormal Lab Results - Last 24 Hours (Table) 12/30/23 12/30/23 Range/Units 05:58 07:45 RBC 3.28 L (4.10-5.20) X 10*6/uL Hgb 8.4 L (12.0-15.0) g/dL Hct 28.7 L (37.2-46.3) % MCH 25.6 L (27.0-32.0) pg MCHC 29.3 L (32.0-37.0) g/dL RDW 21.9 H (11.5-14.5) % Plt Count 843 H (140-440) X 10*3/uL Immature Gran # 0.09 H (0.00-0.04) X 10*3/uL Eosinophils # 0.41 H (0.04-0.35) X 10*3/uL Sodium 135 L (137-145) mmol/L Carbon Dioxide 35 H (22-30) mmol/L Calcium 7.9 L (8.4-10.2) mg/dL Total Protein 4.6 L (6.3-8.2) g/dL Albumin 1.9 L (3.5-5.0) g/dL Microbiology - Last 24 Hours (Table) 12/25/23 10:14 Anaerobic Culture - Final Ascites Fluid 12/25/23 10:14 Gram Stain - Final Ascites Fluid Body Fluid Culture - Final Assessment and Plan (1) Diverticulitis of intestine, part unspecified, without perforation or abscess without bleeding Current Visit: Yes Status: Acute Code(s): K57.92 - DVTRCLI OF INTEST, PART UNSP, W/O PERF OR ABSCESS W/O BLEED SNOMED Code(s): 959875397 (2) Leukocytosis Current Visit: Yes Status: Acute Code(s): D72.829 - ELEVATED WHITE BLOOD CE LL COUNT, UNSPECIFIED SNOMED Code(s): 761373686 (3) Sepsis Current Visit: Yes Status: Acute Code(s): A41.9 - SEPSIS, UNSPECIFIED ORGANISM SNOMED Code(s): 70803925 (4) Gram-negative bacteremia Current Visit: Yes Status: Acute Code(s): R78.81 - BACTEREMIA SNOMED Code(s): 695535115890 Plan: 1patient with complicated diverticulitis with evidence of fistulous communication to the skin left lower quadrant area and concern for possible extension to the bladder, will need to cover for the polymicrobial jessie associated with such condition including enteric gram-negative both aerobes and anaerobes 2-Fusobacterium 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 that is beta-lactamase negative repeat blood culture has been negative so far 3-patient is status post extensive surgery including 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 4patient sputum culture grew Romelia bronchoscopy culture also grew Romelia as well as abdominal culture growing Romelia albicans 5-patient did have elevated platelet count CT abdominal pelvis did show worsening anasarca localized fluid collection within the left mid abdominal wall and worsening of the sacral ulcer exposing the bony surface of the coccyx, patient is status post debridement of the sacral wound down to the bones along with bone biopsy has been suggestive of osteomyelitis however I am not able to find any cultures in the [facility] system done on the sacral wound on 12/26/[address] this debridement took place 6-patient currently covered with Unasyn and Eraxis discharge antibiotic per surgical services as I do not have any cultures to recommend any discharge antibiotics Dictation was produced using [employer] dictation software. please excuse any grammatical, word or spelling errors. Time with Patient: Less than 30
[2023-12-31 11:40] LABS: Magnesium 1.8 mg/dL (1.5-2.4)
[2023-12-31 11:52] LABS: Blood Urea Nitrogen 10.4 mg/dL (9.0-27.0); Calcium 8.2 mg/dL (8.7-10.3); Chloride 100 mmol/L (96-109); Glucose 88 mg/dL (70-110); Potassium 4.4 mmol/L (3.5-5.5); Sodium 142 mmol/L (135-145)
[2023-12-31 12:17] LABS: Basophils # (A) 0.07 X 10*3/uL (0.00-0.10); Basophils % (A) 0.9 %; Eosinophils # (A) 0.51 X 10*3/uL (0.04-0.35); Eosinophils % (A) 6.4 %; HCT 25.3 % (37.2-46.3); HGB 7.6 g/dL (12.0-15.0); Lymphocytes # (A) 1.66 X 10*3/uL (0.90-5.00); Lymphocytes % (A) 20.8 %; MCV 86.6 FL (80.0-97.0); Mean Platelet Volume 9.1 FL (9.5-12.2); Monocytes # (A) 0.67 X 10*3/uL (0.20-1.00); Monocytes % (A) 8.4 %; NRBC Per 100 WBC 0 X 10*3/uL (0.00-0.01); Neutrophils # (A) 4.93 X 10*3/uL (1.80-7.70); Neutrophils % (A) 61.9 %; Platelet Count 745 X 10*3/uL (140-440); RBC 2.92 X 10*6/uL (4.10-5.20); RDW 21.9 % (11.5-14.5); WBC 7.97 X 10*3/uL (4.50-10.00)
--- NOTE | 2023-12-31 15:20 | P.PN ---
Subjective Progress Note Date: 12/31/23 CHIEF COMPLAINT: Perforated diverticular disease with fistulization to the skin HISTORY OF PRESENT ILLNESS: The patient is a 26-bara-ayq-year-old female status post exploratory laparotomy, Magaña's procedure for colocutaneous fistula and septic shock. Patient is status post debridement of unstageable sacrococcygeal ulcer. Bone biopsy also taken. Patient lying in bed comfortably. Wound vacs are intact. They are working on ECF placement. Afebrile. WBC 7.96 hgb 7.6 PHYSICAL EXAM: VITAL SIGNS: Reviewed GENERAL: no acute distress. HEENT: No sclera icterus. Extraocular movements grossly intact. Moist buccal mucosa. Head is atraumatic, normocephalic. Hears conversational speech. No nasal drainage. NECK: Supple without lymphadenopathy. CHEST: Non-labored respirations and equal bilateral excursions. CARDIOVASCULAR: Palpable 2+ radial pulses. ABDOMEN: Soft. Nondistended. Midline incision with Optifoam dressing clean dry and intact stoma beefy red. Stool in ostomy bag. Left lower abdomen wound VAC intact. MUSCULOSKELETAL: No clubbing or cyanosis. NEUROLOGIC: No focal or lateralizing signs. Cranial nerves II through XII grossly intact. ASSESSMENT: 1. Septic shock 2. 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 Lack of general medical care 4. Complicated left groin wound, 4 cm 5. Intermesenteric abscess, pelvis 6. Left inguinal hernia 7. Atrial fibrillation with rapid ventricular response 8. Collapsed left lung secondary to mucous plugging with prior bronchoscopy x 2 9. Unstageable sacrococcygeal ulcer 10. Thrombocytosis 11. Cholelithiasis noted on CAT scan. LFTs normal 12. Severe protein calorie malnutrition PLAN: -Patient can be discharged from surgical standpoint when medically cleared -Patient awaiting ECF placement -Continue wound vacs. Wound VAC to be changed today -Discharge antibiotics per ID service Physician Foil Cutter note has been reviewed by physician. Signing provider agrees with the documented findings, assessment, and plan of care. Objective - Vital Signs Vital signs: Vital Signs Temp 97.5 F L 12/31/23 07:30 Pulse 78 12/31/23 07:30 Resp 19 12/31/23 07:30 BP 112/57 12/31/23 07:30 Pulse Ox 97 03/26/24 07:30 FiO2 40 12/17/23 11:28 Intake & Output 12/30/23 12/31/23 12/31/23 18:59 06:59 18:59 Output Total 2300 770 Balance -2300 -770 Weight 76.6 kg Output: Urine 2300 770 Other: Voiding Method Indwelling Catheter Indwelling Catheter ABP, PAP, CO, CI - Last Documented Arterial Blood Pressure 95/53 - Labs CBC & Chem 7: 12/31/23 06:07 12/31/23 06:07 Labs: Abnormal Lab Results - Last 24 Hours (Table) 12/31/23 12/31/23 Range/Units 06:07 06:07 RBC 2.92 L (4.10-5.20) X 10*6/uL Hgb 7.6 L (12.0-15.0) g/dL Hct 25.3 L (37.2-46.3) % MCH 26.0 L (27.0-32.0) pg MCHC 30.0 L (32.0-37.0) g/dL RDW 21.9 H (11.5-14.5) % Plt Count 745 H (140-440) X 10*3/uL MPV 9.1 L (9.5-12.2) FL Immature Gran # 0.13 H (0.00-0.04) X 10*3/uL Eosinophils # 0.51 H (0.04-0.35) X 10*3/uL Carbon Dioxide 37.0 H (21.6-31.8) mmol/L Creatinine 0.5 L (0.6-1.5) mg/dL BUN/Creatinine Ratio 20.80 H (12.00-20.00) Ratio Calcium 8.2 L (8.7-10.3) mg/dL
--- NOTE | 2023-12-31 15:23 | P.PN ---
Subjective Progress Note Date: 12/31/23 Principal diagnosis: Reason for follow-up is complicated diverticulitis with colocutaneous fistula Patient is a 73-year-old female who was brought into the ER at [facility] for the patient complaining of generalized weakness patient noticed to have sacral pressure ulcer and also complicate diverticulitis with a fistula to the left lower abdominal wall.Patient was taken to the OR on 12/06/2023 and this patient was status post exploratory laparotomy with sigmoid colectomy takedown of the colocutaneous fistula left inguinal hernia repair and peritoneal lavage.Patient is status post Sharp excisional debridement with blade and scissor of 15 x 14 x 3 cm sacrococcygeal wound to muscle and bone, along with Bone biopsy of coccyx, completed on 12/26/2023. On today's evaluation that is 12/31/2023,the patient remains to be afebrile, patient is on 2 L nasal cannula supplemental oxygen and denies any shortness of breath no chest pain or cough.Patient denies having any nausea or vomiting, no abdominal pain and denies any worsening pain to the left knee or leg area today. Patient white count 7.97, creatinine 0.5 Objective - Vital Signs Vital signs: Vital Signs Temp 97.5 F L 12/31/23 07:30 Pulse 78 12/31/23 07:30 Resp 19 12/31/23 07:30 BP 112/57 12/31/23 07:30 Pulse Ox 97 12/31/23 07:30 FiO2 40 12/17/23 11:28 Intake & Output 12/30/23 12/31/23 12/31/23 18:59 06:59 18:59 Output Total 2300 770 Balance -2300 -770 Weight 76.6 kg Output: Urine 2300 770 Other: Voiding Method Indwelling Catheter Indwelling Catheter ABP, PAP, CO, CI - Last Documented Arterial Blood Pressure 95/53 - Exam GENERAL DESCRIPTION: An elderly female lying in bed in no distress RESPIRATORY SYSTEM: Unlabored breathing , decreased breath sounds at bases HEART: S1 S2 regular rate and rhythm , ABDOMEN: Soft , no tenderness EXTREMITIES: No edema feet - Labs CBC & Chem 7: 12/31/23 06:07 12/31/23 06:07 Labs: Abnormal Lab Results - Last 24 Hours (Table) 12/31/23 12/31/23 Range/Units 06:07 06:07 RBC 2.92 L (4.10-5.20) X 10*6/uL Hgb 7.6 L (12.0-15.0) g/dL Hct 25.3 L (37.2-46.3) % MCH 26.0 L (27.0-32.0) pg MCHC 30.0 L (32.0-37.0) g/dL RDW 21.9 H (11.5-14.5) % Plt Count 745 H (140-440) X 10*3/uL MPV 9.1 L (9.5-12.2) FL Immature Gran # 0.13 H (0.00-0.04) X 10*3/uL Eosinophils # 0.51 H (0.04-0.35) X 10*3/uL Carbon Dioxide 37.0 H (21.6-31.8) mmol/L Creatinine 0.5 L (0.6-1.5) mg/dL BUN/Creatinine Ratio 20.80 H (12.00-20.00) Ratio Calcium 8.2 L (8.7-10.3) mg/dL Assessment and Plan (1) Diverticulitis of intestine, part unspecified, without perforation or abscess without bleeding Current Visit: Yes Status: Acute Code(s): K57.92 - DVTRCLI OF INTEST, PART UNSP, W/O PERF OR ABSCESS W/O BLEED SNOMED Code(s): 283192825 (2) Leukocytosis Current Visit: Yes Status: Acute Code(s): D72.829 - ELEVATED WHITE BLOOD CELL COUNT, UNSPECIFIED SNOMED Code(s): 483340104 (3) Sepsis Current Visit: Yes Status: Acute Code(s): A41.9 - SEPSIS, UNSPECIFIED ORGANISM SNOMED Code(s): 43875139 (4) Gram-negative bacteremia Current Visit: Yes Status: Acute Code(s): R78.81 - BACTEREMIA SNOMED Code(s): 984845533430 Plan: 1patient with complicated diverticulitis with evidence of fistulous communication to the skin left lower quadrant area and concern for possible extension to the bladder, will need to cover for the polymicrobial jessie asso ciated with such condition including enteric gram-negative both aerobes and anaerobes 2-Fusobacterium 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 that is beta-lactamase negative repeat blood culture has been negative so far 3-patient is status post extensive surgery including 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 4patient sputum culture grew Romelia bronchoscopy culture also grew Romelia as well as abdominal culture growing Romelia albicans 5-patient did have elevated platelet count CT abdominal pelvis did show worsening anasarca localized fluid collection within the left mid abdominal wall and worsening of the sacral ulcer exposing the bony surface of the coccyx, p atient is status post debridement of the sacral wound down to the bones along with bone biopsy has been suggestive of osteomyelitis, unfortunately no cultures were done 6-patient to continue with Unasyn however will discontinue Eraxis and recommending a 3-week course of IV Unasyn on discharge that will complete about 6 weeks of antibiotic for the osteomyelitis to the sacral wound area and close outpatient follow-up this has been discussed in detail with the LEGISLATIVE AIDE for admitting team Dictation was produced using [employer] dictation software. please excuse any grammatical, word or spelling errors. Time with Patient: Less than 30
--- NOTE | 2024-01-01 06:43 | P.PN ---
Subjective Progress Note Date: 12/31/23 73 years old female who presents to the emergency room for lower abdominal fistula drainage, associated with generalized weakness. Patient looks awake alert but tired looking, pale. Feels generally weak. N has mild generalized abdominal pain and tenderness. No rebound tenderness. Blood with malodorous left lower abdominal fistula drainage with fecal material coming out. Patient also with right rotation. Patient also with unstageable sacral pressure ulcer. With some evidence of cellulitis. Patient is mildly confused. But no headache or weakness in upper or lower patient was hypotensive with a blood pressure/42, currently slightly better 96/43. Potassium is low 2.9, WBC elevated 23,000, hemoglobin 7.4. Creatinine 0.7. Liver enzymes unremarkable. CT of the abdomen pelvis showing sigmoid diverticulitis and proctitis. 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 Please refer to the report for more details. Patient was ordered received normal saline boluses. Currently on Normosol at 130 mL/h She received 1 dose of Zosyn and started on Flagyl. We are going to add cefepime for gram-negative coverage. 12/21/2023 Patient is seen and evaluated in follow-up on the regular medical floor. She is currently sitting up in bed. Awake and alert in no acute distress. -- Remains on O2 at 4 L per nasal cannula maintaining O2 saturations in the mid 90s. She is afebrile. Hemodynamically stable. She has normal staying at KVO. --She continues on Unasyn and Eraxis. -White count 7.9. Hemoglobin 7.7. Platelets 601. Sodium 145. Potassium 3.6. Bicarb 32. BUN 18. Creatinine 0.5. Glucose 101. She remains on IV diuretics. She is currently in a -3.6 L balance. 12/22/2023 the patient is seen and evaluated in room at bedside; continues to be afebrile, the patient is on 4 L nasal cannula oxygen and breathing comfortably, the Pt has been complaining of right ear and nasal stuffiness, denies having any chest pain or cough, the patient denies having any abdominal pain no vomiting or any diarrhea has been reported. 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 Patient is on the medical surgical unit with extensive wounds noted to the abdomen including wound VAC on the left groin for a fistula and ostomy with stool noted. Patient with extensive abdominal drainage. Surgical site with umang noted with no significant redness or drainage noted. Patient is maintained on antibiotics with infectious disease following and repeat cultures thus far showing Romelia maintained on antifungals along with antibiotics. Patient sensitive wounds to the decubitus area unstageable on admission and has worsened during hospitalization with extensive tunneling and some drainage noted that is nonpurulent. With surgery following with the need for possible debridement. Repeat CT abdomen is ordered as well per surgery as patient continues to have pain and distention. Patient is currently afebrile with no reports of worsening shortness of breath. Currently rate controlled medications and will continue to monitor closely. Patient has refused hospice and would like to go to rehab. Case management following working on discharge planning and patient will also require insurance authorization. 12/24/2023 Patient is seen in follow-up today with general surgery following. Patient underwent repeat CT abdomen showing significant ascites and interventional rad iology being for possible drainage and recommend fluid analysis. Infectious disease following patient is maintained on antibiotics along with antifungals and will continue. Patient with extensive unstageable sacral decubitus ulcer in need of debridement and tentatively scheduled for debridement with Dr. Trivedi on 12/26/2023. Hold anticoagulation for the procedure. Patient is currently afebrile with no reported chest pain or worsening shortness of breath. Encouraged oral intake and recommend PT/OT therapy daily. Patient is significantly weak and has had prolonged hospitalization. Plans on going to [facility] for continued ability. Case management is following as patient will require insurance authorization. 12/25/2023 Patient is seen and evaluated in follow-up today remains lethargic although arousable. Patient underwent paracentesis with approximately 2 L removed for ascites with interventional radiology today. Fluid sent for analysis. Patient is also scheduled to undergo debridement of the unstageable decubitus ulcer with Dr. Trivedi tomorrow would recommend holding anticoagulation and n.p.o. at midnight. Patient needs encouragement with increased activity and oral intake. Electrolytes reveal a potassium of 3.1 and magnesium 1.7 and will replace per protocol. Will follow-up on repeat labs and continue to replace as needed. Encouraged oral intake. Prognosis remains extremely guarded 12/26/2023 Patient is seen in follow-up this morning scheduled to undergo excisional debridement of the decubitus ulcer with Dr. Trivedi today. Patient is currently n.p.o. and awaiting the procedure. Patient continues on antibiotics with infectious disease following as well as antifungals. Currently awaiting deep tissue cultures to determine appropriate antibiotic use on discharge. Patient with extensive sacral decubitus ulcer will need intense wound care physical therapy. Patient is currently afebrile no reports of chest pain or shortness of breath. Will await surgical report 12/27/2023 Patient is seen in follow-up today status post excisional debridement of the extensive decubitus ulcer. After debridement and evaluation, stage IV sacral ulcer with bony involvement with concerns of osteomyelitis requiring wound VAC. Patient did have a bone biopsy as well as deep cultures which are currently pending. Patient is continued on antibiotics along with Eraxis and awaiting cultures to finalize discharge antibiotics. Patient needs extensive wound care and continuous encouraged oral intake. Patient is not eating adequately and continues to be extremely weak and would recommend aggressive physical therapy. Patient is currently afebrile with no reported chest pain or shortness of breath. 12/30/2023 Patient is seen and evaluated in follow-up with general surgery and infectious disease following maintained on antibiotics along with antifungals. Patient is status post sharp excisional debridement with bone tissue sent and currently remains pending for pathology. Patient continues with multiple wound vacs in place and will need continued extensive wound care. Will discuss further with infectious disease regarding discharge planning antibiotics and treatment plan moving forward. Overall prognosis is poor and guarded at this time. Patient is afebrile and denies any chest pain or shortness of breath. Patient is tolerating diet and would recommend aspiration precautions and supervision with meals. Case management following working on [facility] 12/31/2023 Patient is seen this morning with general surgery and infectious disease following. Patient continues on antibiotics along with antifungals. And will continue with IV Zosyn via PICC line for 3 weeks course to complete the 6 weeks course of suggestive of osteomyelitis found on the bone biopsy. Patient to continue with wound care and wound VAC with close outpatient follow-up with the wound care center. Patient plans on going to [facility] for continued strength and mobility. Patient is currently afebrile with no reported chest pain or shortness of breath. Patient has been tolerating diet and needs encouragement with meals. Recommend supplements in between meals. Review of systems: Constitutional: reports of fatigue, no fever, or chills Cardiovascular: No reports of chest pain or palpitations Respiratory: No reports of worsening shortness of breath or cough GI: No reports of nausea, vomiting, or diarrhea, not much oral intake, no appetite : No reports of dysuria or retention Neurovascular: reports of extreme weakness All medications have been reviewed Active Medications Acetaminophen (Acetaminophen Tab 325 Mg Tab) 650 mg PO Q6HR PRN PRN Reason: Mild Pain or Fever > 100.5 Last Admin: 12/29/23 20:13 Dose: 650 mg Hydrocodone Bitart/Acetaminophen (Hydrocodone/Apap 5-325mg 1 Each Tab) 1 each PO Q6HR PRN PRN Reason: Pain Last Admin: 12/30/23 18:33 Dose: 1 each Amiodarone HCl (Amiodarone 200 Mg Tab) 200 mg PO DAILY [facility] Last Admin: 12/31/23 08:16 Dose: 200 mg Folic Acid (Folic Acid 1 Mg Tab) 1 mg PO DAILY@1200 [facility] Last Admin: 12/31/23 12:05 Dose: 1 mg Furosemide (Furosemide 10 Mg/Ml 4 Ml Vial) 40 mg IV DAILY [facility] Last Admin: 12/31/23 08:17 Dose: 40 mg Guaifenesin (Guaifenesin Syrup 100mg/5ml 200 Mg/10 Ml Cup) 400 mg PO TID PRN PRN Reason: Cough Heparin Sodium (Porcine) (Heparin Sodium,Porcine 5,000 Unit/Ml 1 Ml Vial) 5,000 unit SQ Q12HR [facility] Last Admin: 12/31/23 08:17 Dose: 5,000 unit Ampicillin Sodium/Sulbactam (Sodium 3 gm/ Sodium Chloride) 100 mls @ 200 mls/hr IVPB Q6HR [facility]; Protocol Last Admin: 12/31/23 12:05 Dose: 200 mls/hr Lactated Ringer's (Lactated Ringers) 1,000 mls @ 20 mls/hr IV .Q24H [facility] Last Admin: 12/30/23 23:12 Dose: Not Given Lorazepam (Lorazepam 2 Mg/Ml Inj) 0.5 mg IV Q4HR PRN PRN Reason: Anxiety Miscellaneous Information (Magnesium Replacement Protocol 1 Each Misc) 1 each MISCELLANE DAILY PRN; Protocol PRN Reason: Per Protocol Miscellaneous Information (Potassium Replacement Protocol 1 Each Misc) 1 each MISCELLANE DAILY PRN; Protocol PRN Reason: Per Protocol Miscellaneous Information (Potassium Replacement Protocol 1 Each Misc) 1 each MISCELLANE DAILY PRN; Protocol PRN Reason: Per Protocol Miscellaneous Information (Magnesium Replacement Protocol 1 Each Misc) 1 each MISCELLANE DAILY PRN; Protocol PRN Reason: Per Protocol Miscellaneous Information (Potassium Replacement Protocol 1 Each Misc) 1 each MISCELLANE DAILY PRN; Protocol PRN Reason: Per Protocol Multivitamins (Multivitamins, Thera 1 Each Tab) 1 each PO DAILY@1200 [facility] Last Admin: 12/31/23 12:05 Dose: 1 each Naloxone HCl (Naloxone 0.4 Mg/Ml 1 Ml Vial) 0.2 mg IV Q2M PRN PRN Reason: Opioid Reversal Nystatin (Nystatin 100,000 Unit/Gm Powd 15 Gm) 1 applic TOPICAL BID [facility] Last Admin: 12/31/23 08:17 Dose: 1 applic Pantoprazole Sodium (Pantoprazole 40 Mg/10 Ml Vial) 40 mg IVP DAILY [facility] Last Admin: 12/31/23 08:16 Dose: 40 mg Petrolatum (Zinc Oxide Paste (Z-Guard) 1 Applic) 1 applic TOPICAL BID PRN; Protocol PRN Reason: Wound Healing Thiamine HCl (Thiamine 100 Mg Tab) 100 mg PO DAILY@1200 [facility] Last Admin: 12/31/23 12:05 Dose: 100 mg Physical exam: Gen: This is a 73-year-old female who is asleep although arousable, alert and oriented x 2-3, ill-appearing, well developed, elderly appearing HEENT: Head is atraumatic, normocephalic. Pupils equal, round. Sclerae is anicteric. NECK: Supple. No JVD. No lymphadenopathy. No thyromegaly. LUNGS: Diminished breath sounds bilaterally otherwise clear to auscultation. No wheezes or rhonchi. No intercostal retractions. HEART: S1, S2 are muffled ABDOMEN: Soft. less of the bodies distended. bowel sounds are present. No masses. tenderness noted throughout. Surgical dressing is dry and umang noted with no significant redness or drainage noted, ostomy noted with stool in the left, wound VAC noted in the left groin EXTREMITIES: Bilateral lower extremity edema. No calf tenderness. NEUROLOGICAL: Patient is asleep although arousable, alert and oriented x2. Cranial nerves 2 through 12 are grossly intact. Diffusely weak Assessment: Acute sigmoid colitis, diverticulitis with proctitis and perforation. With multiple entero-cutaneous and entero-vesical fistulas, including to the left lower abdominal wall. Status post colostomy Septic shock secondary to above, Improved Acute hypoxic respiratory failure requiring intubation and mechanical ventilation. S/p extubation on 12/24. Patient is continued on 2 mild residual sickness L via NC Left lung collapse secondary to mucous plugging status post bronchoscopy and lavage of left lung. Done on 12/10/2023 and also on 12/15/2023 Klebsiella urinary tract infection New onset A-fib and RVR, currently rate controlled Acute kidney injury, Improved no more need for dialysis Acute anemia, unknown baseline, chronic microcytic. S/p units of PRBC wright sfusion pressure ulcer, left upper buttock, present on admission, stage II Unstageable sacrococcygeal pressure ulcer, present on admission , status post excisional debridement and noted to be stage IV sacral decubitus ulcer with coccyx bony involvement, status post biopsy Bone exposed on the coccyx status post debridement, most likely osteomyelitis Metabolic encephalopathy, with possible elements of delirium, improved Bilateral adrenal nodule, recommend follow-up CT in 3 months. Severe protein calorie malnutrition with a BMI of 29.9 Hydropic gallbladder with multiple gallstones Anasarca With severe hypoalbuminemia and ascites status post paracentesis on 12/25/2023 with approximately 2 L removed Suspect critical illness polyneuropathy GI prophylaxis DVT prophylaxis No code Plan: Patient is continued on antibiotics with infectious disease following also maintained on antifungals as culture showing Romelia. Unfortunately no cultures were obtained from excisional debridement and bone biopsy suggestive of osteomyelitis. Patient will continue on IV Zosyn for 3 weeks course via PICC l ine per ID recommendations Patient will continue to require extensive wound care with 3 wound vacs to the abdomen groin and coccyx. Patient is status post excisional debridement with general surgery Patient is status post paracentesis with approximately 2 L removed on 12/25/2023. Fluid sent for analysis is negative Patient remains on 2-4 L via nasal cannula Patient is being currently on Lasix 40 mg IV daily. Most recent chest x-ray shows some atelectasis likely Pulmonary following as well Patient is on Eliquis and oral amiodarone for new onset atrial fibrillation with RVR. currently rate controlled. Patient will continue on subcutaneous heparin for now. Will discuss with general surgery when to resume Eliquis Due to multiple complex medical issues prognosis is extremely poor and guarded, CODE STATUS DNR/DNI, Patient has declined any further BiPAP, bronchoscopy, reintubation. Patient is refusing hospice at this time case management following working on ECF Case management following working on ECF with possible discharge planning in next 24 to 48 hours The impression and plan of care has been dictated by Irene Israel, Nurse Practitioner as directed. Dr. Rodríguez MD I have performed a history and examination and MDM of this patient, discussed the same with the dictator, and agree with the dictator's assessment and plan as written ,documented as a scribe. Based on total visit time, I have performed more than 50% of the visit. Objective - Vital Signs Vital signs: Vital Signs Temp 97.9 F 12/31/23 13:57 Pulse 77 12/31/23 13:57 Resp 19 12/31/23 13:57 BP 102/58 12/31/23 13:57 Pulse Ox 96 12/31/23 13:57 FiO2 40 12/17/23 11:28 Intake & Output 12/30/23 12/31/23 12/31/23 18:59 06:59 18:59 Output Total 2300 770 Balance -2300 -770 Weight 76.6 kg Output: Urine 2300 770 Other: Voiding Method Indwelling Catheter Indwelling Catheter ABP, PAP, CO, CI - Last Documented Arterial Blood Pressure 95/53 - Labs CBC & Chem 7: 12/31/23 06:07 12/31/23 06:07 Labs: Abnormal Lab Results - Last 24 Hours (Table) 12/31/23 12/31/23 Range/Units 06:07 06:07 RBC 2.92 L (4.10-5.20) X 10*6/uL Hgb 7.6 L (12.0-15.0) g/dL Hct 25.3 L (37.2-46.3) % MCH 26.0 L (27.0-32.0) pg MCHC 30.0 L (32.0-37.0) g/dL RDW 21.9 H (11.5-14.5) % Plt Count 745 H (140-440) X 10*3/uL MPV 9.1 L (9.5-12.2) FL Immature Gran # 0.13 H (0.00-0.04) X 10*3/uL Eosinophils # 0.51 H (0.04-0.35) X 10*3/uL Carbon Dioxide 37.0 H (21.6-31.8) mmol/L Creatinine 0.5 L (0.6-1.5) mg/dL BUN/Creatinine Ratio 20.80 H (12.00-20.00) Ratio Calcium 8.2 L (8.7-10.3) mg/dL
[2024-01-01] MEDS: SODIUM FERRIC GLUCONAT-SUCROSE 125 MG in SODIUM CHLORIDE 0.9% 100 ML IVPB ONE (12:18)
--- NOTE | 2024-01-01 12:31 | P.DS ---
Providers Date of admission: 12/04/23 18:09 Expected date of discharge: 01/01/24 Attending physician: Tong Tracey MD Consults: 12/04/23 18:04 Consult Physician Routine Consulting Provider: Carolyne Felipe Consult Reason/Comments: enteric fistula Do you want consulting provider notified?: Already Contacted 12/04/23 19:35 Consult Physician Routine Consulting Provider: Ramona Molina Consult Reason/Comments: sacral pressure ulcer. colitis Do you want consulting provider notified?: Yes, Notify in am 12/05/23 09:35 Consult Physician Urgent Consulting Provider: Domenic Barker Consult Reason/Comments: preop evaluation Do you want consulting provider notified?: Yes 12/06/23 16:08 Consult Physician Stat Consulting Provider: Tre Reece Consult Reason/Comments: Septic Do you want consulting provider notified?: Already Contacted 12/08/23 01:54 Consult Physician Routine Consulting Provider: Domenic Barker Consult Reason/Comments: Afib RVR Do you want consulting provider notified?: Already Contacted Primary care physician: Stated None Hospital Course: Final diagnosis Acute sigmoid colitis, diverticulitis with proctitis and perforation. With multiple entero-cutaneous and entero-vesical fistulas, including to the left lower abdominal wall. Status post colostomy Septic shock secondary to above, Improved Acute hypoxic respiratory failure requiring intubation and mechanical ventilation. S/p extubation on 12/24. Patient is continued on 2 L via NC Left lung collapse secondary to mucous plugging status post bronchoscopy and lavage of left lung. Done on 12/10/2023 and also on 12/15/2023 Klebsiella urinary tract infection New onset A-fib and RVR, currently rate controlled Acute kidney injury, Improved no more need for dialysis Acute anemia, unknown baseline, chronic microcytic. S/p units of PRBC transfusion pressure ulcer, left upper buttock, present on admission, stage II Unstageable sacrococcygeal pressure ulcer, present on admission , status post excisional debridement and noted to be stage IV sacral decubitus ulcer with coccyx bony involvement, status post biopsy Bone exposed on the coccyx status post debridement, most likely osteomyelitis Metabolic encephalopathy, with possible elements of delirium, improved Bilateral adrenal nodule, recommend follow-up CT in 3 months. Severe protein calorie malnutrition with a BMI of 29.9 Hydropic gallbladder with multiple gallstones Anasarca With severe hypoalbuminemia and ascites status post paracentesis on 12/25/2023 with approximately 2 L removed Suspect critical illness polyneuropathy GI prophylaxis DVT prophylaxis No code Discharge disposition Patient is being discharged in a stable condition with guarded prognosis to [facility]. Patient will follow-up with Dr. Boss in the outpatient setting upon discharge. Patient previously had no primary care provider and needs to establish. patient is to continue with PICC line and IV Unasyn every 6 hours for 3 weeks per ID recommendations. Patient to follow-up with wound care center outpatient as scheduled. Repeat CBC, CMP, magnesium in 2 to 3 days. Total time taken is greater than 35 minutes. Hospital course This is a 73-year-old female who was recently admitted with abdominal pain found to have acute sigmoid colitis with diverticulitis and proctitis with perforation status post colostomy with general surgery. There was noted to be multiple enterocutaneous and enteral vesicular fistulas. Patient was in the ICU for quite some time with sepsis secondary to above and septic shock requiring intubation and maintained on mechanical ventilation. Patient was extubated successfully on 12/24 and continues on 2 L of oxygen via nasal cannula. Patient also was noted to have a left lung collapse secondary to mucous plugging and is status post bronchoscopy with lavage of the left lung done twice showing improvements. Patient was noted to have Klebsiella urinary tract infection, present on admission and treated with antibiotics. Patient also underwent new onset atrial fibrillation currently rate controlled. Patient with anemia, chronic microcytic status post transfusions this admission and maintained on iron and recommend to continue with iron supplementation. Follow-up repeat labs of CBC, CMP in the next few days. Patient during septic shock also had acute kidney injury underwent dialysis briefly and kidney functions improved and patient is making urine. Patient to continue with indwelling Gill catheter until more mobile. Patient with a noted pressure ulcer on admission of the left upper buttock stage II recommend to continue with frequent offloading and wound care with close outpatient follow-up with the wound center. Patient did have an unstageable sacrococcygeal pressure ulcer on admission and with prolonged hospitalization had worsened requiring excisional debridement and after cleansing and washout likely stage IV sacral decubitus ulcer with coccyx bony involvement and concerns for osteomyelitis. Patient does have a PICC line and has been maintained on antibiotics and will continue on IV Unasyn every 6 hours per ID recommendations for the next 3 weeks. During this admission there was bilateral adrenal nodules noted and recommending outpatient follow-up in 3 months. Patient not eating much and has no appetite recommend aspiration precautions and head of bed bed elevated 30 to 45 degrees at all times and supervision with meals. Patient with prolonged hospitalization and significant weakness needs aggressive PT/OT therapy for continued strength and mobility. Patient is adamant about not being placed back on a ventilator, refusing BiPAP, and refusing CPR. Patient wishes to remain no code. Discussed possible hospice and patient was not agreeable with this at this time. Patient would like to go to physical therapy to get stronger and hopefully go home. Patient has been cleared by consultations for discharge to [facility] today. Please refer to other consultation notes for further HPI. Currently no reports of chest pain, shortness of breath, or palpitations. Patient is afebrile. No reports of nausea or vomiting and patient is tolerating diet. Patient will be going to [facility] bed today. Extremely guarded prognosis and high risk for readmissions given patient's significant comorbidities. Patient has not had any medicati or medical follow-up outpatient. Physical exam: Gen: This is a 73-year-old female who is awake, alert and oriented x 2-3, emaciated, elderly appearing, ill-appearing HEENT: Head is atraumatic, normocephalic. Pupils equal, round. Sclerae is anicteric. NECK: Supple. No JVD. No lymphadenopathy. No thyromegaly. LUNGS: Diminished breath sounds bilaterally otherwise clear to auscultation. No wheezes or rhonchi. No intercostal retractions. HEART: S1, S2 are muffled ABDOMEN: Soft. Obese bowel sounds are present. No masses. tenderness noted throughout. Surgical site with continued umang are dry and intact with dressing changed, ostomy on the left along with a wound VAC in the left groin with good suction EXTREMITIES: Generalized bilateral lower extremity swelling. No calf tenderness. Muscle wasting noted of upper and lower extremities NEUROLOGICAL: Patient is awake, alert and oriented x2-3. Cranial nerves 2 through 12 are grossly intact. Extremely weak Please refer to medication reconciliation sheet for a list of medications. The impression and plan of care has been dictated by Irene Israel, Nurse Practitioner as directed. Dr. Rodríguez MD I have performed a history and examination and MDM of this patient, discussed the same with the dictator, and agree with the dictator's assessment and plan as written ,documented as a scribe. Based on total visit time, I have performed more than 50% of the visit. Patient Condition at Discharge: Fair Plan - Discharge Summary New Discharge Prescriptions: New Folic Acid 1 mg PO DAILY@1200 tab Heparin Sodium,Porcine (1 ml) [Heparin Sodium] 5,000 unit SQ Q12HR each Furosemide [Lasix] 40 mg PO DAILY #30 tablet Multivitamins, Thera [Multivitamin (formulary)] 1 each PO DAILY@1200 tab Nystatin 100,000 Unit/gm Powd [Mycostatin Powder] 1 applic TOPICAL BID each guaiFENesin SYRUP 100MG/5ML [Robitussin] 400 mg PO TID PRN ml PRN Reason: Cough Ampicillin-Sulbactam [Unasyn 3 gm vial] 3 gm IVPB Q6HR 21 Days #84 each Ferrous Sulfate [Feosol] 325 mg PO DAILY #30 tab Amiodarone [Cordarone] 200 mg PO DAILY tab HYDROcodone/APAP 5-325MG [[place] 5-325] 1 each PO Q6HR PRN #4 tab PRN Reason: Pain Acetaminophen Tab [Tylenol] 650 mg PO Q6HR PRN tab PRN Reason: Mild Pain Or Fever > 100.5 Thiamine [Vitamin B-1] 100 mg PO DAILY@1200 tab Discharge Medication List Acetaminophen Tab [Tylenol] 650 mg PO Q6HR PRN tab 01/01/24 [Rx] Amiodarone [Cordarone] 200 mg PO DAILY tab 01/01/24 [Rx] Ampicillin-Sulbactam [Unasyn 3 gm vial] 3 gm IVPB Q6HR 21 Days #84 each 01/01/24 [Rx] Ferrous Sulfate [Feosol] 325 mg PO DAILY #30 tab 01/01/24 [Rx] Folic Acid 1 mg PO DAILY@1200 tab 01/01/24 [Rx] Furosemide [Lasix] 40 mg PO DAILY #30 tablet 01/01/24 [Rx] HYDROcodone/APAP 5-325MG [[place] 5-325] 1 each PO Q6HR PRN #4 tab 01/01/24 [Rx] Heparin Sodium,Porcine (1 ml) [Heparin Sodium] 5,000 unit SQ Q12HR each 01/01/24 [Rx] Multivitamins, Thera [Multivitamin (formulary)] 1 each PO DAILY@1200 tab 01/01/24 [Rx] Nystatin 100,000 Unit/gm Powd [Mycostatin Powder] 1 applic TOPICAL BID each 01/01/24 [Rx] Thiamine [Vitamin B-1] 100 mg PO DAILY@1200 tab 01/01/24 [Rx] guaiFENesin SYRUP 100MG/5ML [Robitussin] 400 mg PO TID PRN ml 01/01/24 [Rx] Follow up Appointment(s)/Referral(s): Carolyne Felipe MD [STAFF PHYSICIAN] - 3 Weeks Dong Boss MD [REFERRING] - 1 Week Wound Center,[facility] [NON-STAFF] - 1 Week Ambulatory/Diagnostic Orders: Complete Blood Count w/diff [LAB.AMB] Time Frame: 2 Days, Location: None Selected Activity/Diet/Wound Care/Special Instructions: Ostomy: Joe 1 piece convex appliance #[id number]; Jaren ring (halved along retracted area of stoma); last changed 12/30/23 Non-sting skin prep Change Wound Vacs Mon, Wed, Fri. Patient has wound VAC for the sacral coccygeal area and wound VAC for abdomen upper midline incision is well as the left lower quadrant abdomen. Abdominal wounds are bridged together to one wound vac. The sacral cocygeal area is connected to a separate wound vac. Use black granulofoam. Settings: 125mmHG continuous medium suction. Regular Diet Activity as tolerated. Patient is going to [facility] Patient to establish with a primary care provider outpatient Patient has a PICC line and to continue with IV antibiotics in the form of Unasyn for the next 3 weeks per ID recommendations Continue with wound care and wound VAC Patient needs encouragement with meals and recommend aspiration precautions with head of the bed elevated 30 to 45 degrees at all times Follow-up on repeat labs of CBC, CMP, magnesium in 2 to 3 days Patient will need to follow-up with the wound care center outpatient Patient is in no code and this was discussed and refusing any further mechanical ventilation, BiPAP, or CPR Discharge/Stand Alone Forms: Area PCPs Discharge Disposition: TRANSFER TO SNF/F
[2024-01-01 13:24] VITALS: BMI 29.2
[2024-01-01 14:39] VITALS: BP 97/52; PULSE 78; RESP 17; TEMP 98.3
--- NOTE | 2024-01-01 16:49 | P.PN ---
Subjective Progress Note Date: 01/01/24 CHIEF COMPLAINT: Perforated diverticular disease with fistulization to the skin HISTORY OF PRESENT ILLNESS: The patient is a 89-[id number]-year-old female status post exploratory laparotomy, Magaña's procedure for colocutaneous fistula and septic shock. Patient is status post debridement of unstageable sacrococcygeal ulcer. Bone biopsy also taken. Patient lying in bed comfortably. Wound vacs are intact. Patient to be discharged to ECF today. Afebrile. PHYSICAL EXAM: VITAL SIGNS: Reviewed GENERAL: no acute distress. HEENT: No sclera icterus. Extraocular movements grossly intact. Moist buccal mucosa. Head is atraumatic, normocephalic. Hears conversational speech. No nasal drainage. NECK: Supple without lymphadenopathy. CHEST: Non-labored respirations and equal bilateral excursions. CARDIOVASCULAR: Palpable 2+ radial pulses. ABDOMEN: Soft. Nondistended. Midline incision clean dry and intact stool in ostomy bag. Wound vacs intact MUSCULOSKELETAL: No clubbing or cyanosis. NEUROLOGIC: No focal or lateralizing signs. Cranial nerves II through XII grossly intact. ASSESSMENT: 1. Septic shock 2. 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 Lack of general medical care 4. Complicated left groin wound, 4 cm 5. Intermesenteric abscess, pelvis 6. Left inguinal hernia 7. Atrial fibrillation with rapid ventricular response 8. Collapsed left lung secondary to mucous plugging with prior bronchoscopy x 2 9. Unstageable sacrococcygeal ulcer 10. Thrombocytosis 11. Cholelithiasis noted on CAT scan. LFTs normal 12. Severe protein calorie malnutrition PLAN: -Patient can be discharged from surgical standpoint when medically cleared -Patient to be discharged to ECF -Continue wound vacs -Discharge antibiotics per ID service Physician Field Service Representative note has been reviewed by physician. Signing provider agrees with the documented findings, assessment, and plan of care. Objective - Vital Signs Vital signs: Vital Signs Temp 97.4 F L 01/01/24 08:04 Pulse 83 01/01/24 08:04 Resp 14 01/01/24 08:04 BP 105/60 01/01/24 08:04 Pulse Ox 97 01/01/24 08:04 FiO2 40 12/17/23 11:28 Intake & Output 12/31/23 01/01/24 01/01/24 18:59 06:59 18:59 Intake Total 0 Output Total 1800 40 Balance -1800 0 -40 Weight 84.82 kg Intake: Oral 0 Output: Urine 1800 Stool 40 Other: Voiding Method Indwelling Catheter Indwelling Catheter ABP, PAP, CO, CI - Last Documented Arterial Blood Pressure 95/53 - Labs CBC & Chem 7: 12/31/23 06:07 12/31/23 06:07 Labs: Abnormal Lab Results - Last 24 Hours (Table) 12/31/23 12/31/23 Range/Units 06:07 06:07 RBC 2.92 L (4.10-5.20) X 10*6/uL Hgb 7.6 L (12.0-15.0) g/dL Hct 25.3 L (37.2-46.3) % MCH 26.0 L (27.0-32.0) pg MCHC 30.0 L (32.0-37.0) g/dL RDW 21.9 H (11.5-14.5) % Plt Count 745 H (140-440) X 10*3/uL MPV 9.1 L (9.5-12.2) FL Immature Gran # 0.13 H (0.00-0.04) X 10*3/uL Eosinophils # 0.51 H (0.04-0.35) X 10*3/uL Carbon Dioxide 37.0 H (21.6-31.8) mmol/L Creatinine 0.5 L (0.6-1.5) mg/dL BUN/Creatinine Ratio 20.80 H (12.00-20.00) Ratio Calcium 8.2 L (8.7-10.3) mg/dL
--- NOTE | 2024-01-02 14:11 | P.PN ---
Subjective Progress Note Date: 01/01/24 Principal diagnosis: Reason for follow-up is complicated diverticulitis with colocutaneous fistula Patient is a 73-year-old female who was brought into the ER at [facility] for the patient complaining of generalized weakness patient noticed to have sacral pressure ulcer and also complicate diverticulitis with a fistula to the left lower abdominal wall.Patient was taken to the OR on 12/06/2023 and this patient was status post exploratory laparotomy with sigmoid colectomy takedown of the colocutaneous fistula left inguinal hernia repair and peritoneal lavage.Patient is status post Sharp excisional debridement with blade and scissor of 15 x 14 x 3 cm sacrococcygeal wound to muscle and bone, along with Bone biopsy of coccyx, completed on 12/26/2023. On today's evaluation that is 01/01/2024, the patient continues to be afebrile, the patient is on 2 L nasal cannula oxygen and breathing comfortably, the Pt denies having any chest pain or cough, the patient denies having any abdominal pain no vomiting, did have output in the colostomy bag. Patient white count is 7.97 creatinine 0.5 as of yesterday no laboratory. Objective - Vital Signs Vital signs: Vital Signs Temp 97.4 F L 01/01/24 08:04 Pulse 83 01/01/24 08:04 Resp 14 01/01/24 08:04 BP 105/60 01/01/24 08:04 Pulse Ox 97 01/01/24 08:04 FiO2 40 12/17/23 11:28 Intake & Output 12/31/23 01/01/24 01/01/24 18:59 06:59 18:59 Intake Total 0 Output Total 1800 40 Balance -1800 0 -40 Weight 84.82 kg 84.82 kg Intake: Oral 0 Output: Urine 1800 Stool 40 Other: Voiding Method Indwelling Catheter Indwelling Catheter ABP, PAP, CO, CI - Last Documented Arterial Blood Pressure 95/53 - Exam GENERAL DESCRIPTION: An elderly female lying in bed in no distress RESPIRATORY SYSTEM: Unlabored breathing , decreased breath sounds at bases HEART: S1 S2 regular rate and rhythm , ABDOMEN: Soft , no tenderness EXTREMITIES: No edema feet - Labs CBC & Chem 7: 12/31/23 06:07 12/31/23 06:07 Assessment and Plan (1) Diverticulitis of intestine, part unspecified, without perforation or abscess without bleeding Status: Acute Code(s): K57.92 - DVTRCLI OF INTEST, PART UNSP, W/O PERF OR ABSCESS W/O BLEED SNOMED Code(s): 175225777 (2) Leukocytosis Status: Acute Code(s): D72.829 - ELEVATED WHITE BLOOD CELL COUNT, UNSPECIFIED SNOMED Code(s): 958236529 (3) Sepsis Status: Acute Code(s): A41.9 - SEPSIS, UNSPECIFIED ORGANISM SNOMED Code(s): 27096382 (4) Gram-negative bacteremia Status: Acute Code(s): R78.81 - BACTEREMIA SNOMED Code(s): 423255594534 Plan: 1patient with complicated diverticulitis with evidence of fistulous communication to the skin left lower quadrant area and concern for possible extension to the bladder, will need to cover for the polymicrobial jessie associated with such condition including enteric gram-negative both aerobes and anaerobes 2-Fusobacterium 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 that is beta-lactamase negative repeat blood culture has been negative so far 3-patient is status post extensive surgery including 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 4patient sputum culture grew Romelia bronchoscopy culture also grew Romelia as well as abdominal culture growing Romelia albicans 5-patient did have elevated platelet count CT abdominal pelvis did show worsening anasarca localized fluid collection within the left mid abdominal wall and worsening of the sacral ulcer exposing the bony surface of the coccyx, patient is status post debridement of the sacral wound down to the bones along with bone biopsy has been suggestive of osteomyelitis, unfortunately no cultures were done 6-patient to continue with Unasyn for another 3-week course on discharge to complete about 6 weeks of antibiotic for the osteomyelitis to the sacral wound area and close outpatient follow-up. Family the bedside question concern has been answered Dictation was produced using [employer] dictation software. please excuse any gram matical, word or spelling errors. Time with Patient: Less than 30
--- NOTE | 2024-01-03 10:36 | CDI ---
Documentation Clarification Form Date: 01/03/24 From: Michelle Enciso Admit Date: 12/04/2023 06:09:00 PM Patient Name: Michelle Roca Visit Number: [id number] Discharge Date: 01/01/2024 02:26:00 PM ATTENTION: The Clinical Documentation Specialists (CDI) and [facility] Coding Staff appreciate your assistance in clarifying documentation. Please respond to the clarification below the line at the bottom and electronically sign. The CDI & [facility] Coding staff will review the response and follow-up if needed. Please note: Queries are made part of the Legal Health Record. If you have any questions, please contact the author of this message via ITS. Dr. Sachin Arreguin. The final diagnosis of the pathology report states Sacral bone biopsy suggestive of acute osteomyelitis. Coding guidelines do not allow coding professionals to code based on pathology results; therefore, clarification is requested. History/risk factors: Stage IV sacral ulcer with cellulitis with bony involvement, Clinical Indicators: SACRAL BONE AND TISSUE, BIOPSY AND DEBRIDEMENT: Reactive bone and soft tissue with focal degenerative change, heterogeneous marrow elements, and focal featuressuggestive ofacute osteomyelitis. Treatment: Continue with Unasyn for another 3 week course on discharge to complete about 6 weeks of antibiotic for osteomyelitis. Please clarify if you agree with the pathology report diagnosis of acute osteomyelitis of sacral bone: [ ] Yes [ ] No [ ] Other (please specify) [ ] Unable to determine Yes MTDD
== END 2024-01-01 14:26 | disposition swing bed (61) | DRG 853 ==
LOC: EC 13:14 → 5NMEDONC 18:09 → 4SSUR 12-05 13:51 → 2SICU 12-06 18:08 → 5NMEDONC 12-19 15:58 → 4SSUR 12-26 06:12
PROVIDERS: ADMIT Internal Medicine; ATTEND Internal Medicine
PROC: 02HV33Z Insertion of Infusion Device into Superior Vena Cava, Percutaneous Approach (ICD-10-PCS; 2023-12-05)
PROC: 0D9670Z Drainage of Stomach with Drainage Device, Via Natural or Artificial Opening (ICD-10-PCS; 2023-12-06)
PROC: 5A1955Z Respiratory Ventilation, Greater than 96 Consecutive Hours (ICD-10-PCS; 2023-12-06)
PROC: 0DBN0ZZ Excision of Sigmoid Colon, Open Approach (ICD-10-PCS; principal; 2023-12-06 07:30)
PROC: 0D1M0Z4 Bypass Descending Colon to Cutaneous, Open Approach (ICD-10-PCS; principal; 2023-12-06 07:30)
PROC: 0JD80ZZ Extraction of Abdomen Subcutaneous Tissue and Fascia, Open Approach (ICD-10-PCS; principal; 2023-12-06 07:30)
PROC: 0YQ60ZZ Repair Left Inguinal Region, Open Approach (ICD-10-PCS; principal; 2023-12-06 07:30)
PROC: 4A133B1 Monitoring of Arterial Pressure, Peripheral, Percutaneous Approach (ICD-10-PCS; 2023-12-07)
PROC: 4A133J1 Monitoring of Arterial Pulse, Peripheral, Percutaneous Approach (ICD-10-PCS; 2023-12-07)
PROC: 03HY32Z Insertion of Monitoring Device into Upper Artery, Percutaneous Approach (ICD-10-PCS; 2023-12-07)
PROC: 3E043XZ Introduction of Vasopressor into Central Vein, Percutaneous Approach (ICD-10-PCS; 2023-12-08)
PROC: 3E0G76Z Introduction of Nutritional Substance into Upper GI, Via Natural or Artificial Opening (ICD-10-PCS; 2023-12-09)
PROC: 0BC98ZZ Extirpation of Matter from Lingula Bronchus, Via Natural or Artificial Opening Endoscopic (ICD-10-PCS; 2023-12-10)
PROC: 0BCB8ZZ Extirpation of Matter from Left Lower Lobe Bronchus, Via Natural or Artificial Opening Endoscopic (ICD-10-PCS; 2023-12-10)
PROC: 0B9G8ZX Drainage of Left Upper Lung Lobe, Via Natural or Artificial Opening Endoscopic, Diagnostic (ICD-10-PCS; 2023-12-10)
PROC: 0BC78ZZ Extirpation of Matter from Left Main Bronchus, Via Natural or Artificial Opening Endoscopic (ICD-10-PCS; 2023-12-10)
PROC: 5A09357 Assistance with Respiratory Ventilation, Less than 24 Consecutive Hours, Continuous Positive Airway Pressure (ICD-10-PCS; 2023-12-14)
PROC: 0BCB8ZZ Extirpation of Matter from Left Lower Lobe Bronchus, Via Natural or Artificial Opening Endoscopic (ICD-10-PCS; 2023-12-15)
PROC: 0BC88ZZ Extirpation of Matter from Left Upper Lobe Bronchus, Via Natural or Artificial Opening Endoscopic (ICD-10-PCS; 2023-12-15)
PROC: 0BC78ZZ Extirpation of Matter from Left Main Bronchus, Via Natural or Artificial Opening Endoscopic (ICD-10-PCS; 2023-12-15)
PROC: 0JB80ZZ Excision of Abdomen Subcutaneous Tissue and Fascia, Open Approach (ICD-10-PCS; 2023-12-26)
PROC: 0QB10ZZ Excision of Sacrum, Open Approach (ICD-10-PCS; 2023-12-26)
PROC: 0QBS0ZX Excision of Coccyx, Open Approach, Diagnostic (ICD-10-PCS; 2023-12-26)
DX: A41.50 Gram-negative sepsis, unspecified (principal); E43 Unspecified severe protein-calorie malnutrition; J96.01 Acute respiratory failure with hypoxia; R65.21 Severe sepsis with septic shock; R57.0 Cardiogenic shock; G93.41 Metabolic encephalopathy; K65.1 Peritoneal abscess; J96.02 Acute respiratory failure with hypercapnia; L89.154 Pressure ulcer of sacral region, stage 4; G72.81 Critical illness myopathy; K63.2 Fistula of intestine; N17.9 Acute kidney failure, unspecified; J90 Pleural effusion, not elsewhere classified; K82.1 Hydrops of gallbladder; E87.3 Alkalosis; R18.8 Other ascites; I42.9 Cardiomyopathy, unspecified; E87.20 Acidosis, unspecified; K57.20 Diverticulitis of large intestine with perforation and abscess without bleeding; N32.1 Vesicointestinal fistula; I47.10 Supraventricular tachycardia, unspecified; L03.312 Cellulitis of back [any part except buttock and flank]; N30.00 Acute cystitis without hematuria; J98.11 Atelectasis; M46.28 Osteomyelitis of vertebra, sacral and sacrococcygeal region; L89.320 Pressure ulcer of left buttock, unstageable; E27.8 Other specified disorders of adrenal gland; I48.0 Paroxysmal atrial fibrillation; I10 Essential (primary) hypertension; I34.0 Nonrheumatic mitral (valve) insufficiency; D50.9 Iron deficiency anemia, unspecified; Z89.611 Acquired absence of right leg above knee; Z66 Do not resuscitate; E88.09 Other disorders of plasma-protein metabolism, not elsewhere classified; J98.09 Other diseases of bronchus, not elsewhere classified; K62.89 Other specified diseases of anus and rectum; K40.90 Unilateral inguinal hernia, without obstruction or gangrene, not specified as recurrent; K80.20 Calculus of gallbladder without cholecystitis without obstruction; E86.0 Dehydration; D75.839 Thrombocytosis, unspecified; E87.6 Hypokalemia; E86.1 Hypovolemia; E87.70 Fluid overload, unspecified; M54.50 Low back pain, unspecified; H90.5 Unspecified sensorineural hearing loss; Z68.28 Body mass index [BMI] 28.0-28.9, adult; Z53.20 Procedure and treatment not carried out because of patient's decision for unspecified reasons; Z71.3 Dietary counseling and surveillance; Z91.040 Latex allergy status
CPT/HCPCS: 36415; 36430; 36573; 36600; 49083; 71045; 74177; 80048; 80053; 80076; 80202; 81001; 82272; 82607; 82728; 82746; 82805; 83540; 83550; 83605; 83690; 83735; 84100; 84132; 84484; 85025; 85027; 85610; 85652; 85730; 86140; 86850; 86900; 86901; 86920; 87040; 87070; 87075; 87077; 87086; 87102; 87116; 87186; 87205; 87206; 87496; 87498; 87502; 87529; 87634; 87635; 87798; 88108; 88305; 88307; 88311; 89050; 93005; 93306; 93308; 94002; 94003; 94640; 94660; 94667; 94668; 94760; 96361; 96365; 96366; 96367; 99285

== ENCOUNTER 2024-12-09 09:05 | Day surgery (SDC) | payer MEDICARE, OTHER ==
[2024-12-08 14:13] VITALS: BMI 24.5
--- NOTE | 2024-12-09 08:38 | P.GSHP ---
History of Present Illness H&P Date: 12/09/24 CHIEF COMPLAINT: Diverticulitis with fistula HISTORY OF PRESENT ILLNESS: The patient is a 74-year-old female with pre- existing history of colostomy bag due to perforated diverticulitis and fistula. Reports of recurrent fistula is being investigated. Will endoscopy to colostomy and rectum as advised. PAST MEDICAL HISTORY: Please see list. PAST SURGICAL HISTORY: Please see list. MEDICATIONS: Please see list. ALLERGIES: Please see list. SOCIAL HISTORY: No illicit drug use FAMILY HISTORY: No reports of Crohn disease or ulcerative colitis. REVIEW OF ORGAN SYSTEMS: CONSTITUTIONAL: No reports of fevers or chills. PHYSICAL EXAM: VITAL SIGNS: Stable GENERAL: Well-developed pleasant in no acute distress. HEENT: No scleral icterus. Extraocular movements grossly intact. Moist buccal mucosa. NECK: Supple without lymphadenopathy. CHEST: Unlabored respirations. Equal bilateral excursions. CARDIOVASCULAR: Regular rate and rhythm. Distal 2+ pulses. ABDOMEN: Soft, nontender, nondistended. MUSCULOSKELETAL: No clubbing, cyanosis, or edema. ASSESSMENT: 1. Diverticulitis with fistula PLAN: 1. Recommend proceeding with a lower endoscopy Past Medical History Past Medical History: Atrial Fibrillation, Hearing Disorder / Deafness Additional Past Medical History / Comment(s): intestianl fistual,uses w/c and emanuel lift, hx malnutrition,cholelithiasis w/out complication,allergic rhinitis,thrombocytosis,anemia,paroxysmal afib,stg 4 pressure ulcer to buttocks has dressing changes MOWEFR-santyl cream with calcium alginate -healing-had dial catheter, periorbital cellulitis,macular degeneration meli eys,episcleritis left eye,meli cataracts,hyperglycemia,vit d def,ascites,pharyngeal dysphagia- needs to sit upright for eating and for 30 min post meals/snacks,generalized muscle weakness, unable to wear prosthesis for rt leg,pulmonary htn,mitral valve insuff,tricuspid valve insuff,pulmonary valve insuff,generalized edema,kidney cyst,bronchitis,adrenal gland disorder History of Any Multi-Drug Resistant Organisms: MRSA Date of last positivie culture/infection: 04/01/24 MDRO Source:: ABDOMEN Past Surgical History: Bowel Resection Additional Past Surgical History / Comment(s): 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,colostomy due to diverticulitis and perforation, Past Anesthesia/Blood Transfusion Reactions: No Reported Reaction Additional Past Anesthesia/Blood Transfusion Reaction / Comment(s): no known complications Smoking Status: Never smoker - Past Family History Father Additional Family Medical History / Comment(s): Colon Cancer Medications and Allergies Home Medications Medication Instructions Recorded Confirmed Type Acetaminophen Tab [Tylenol] 650 mg PO Q6HR PRN tab 01/01/24 12/08/24 Rx Ferrous Sulfate [Feosol] 325 mg PO DAILY #30 tab 01/01/24 12/08/24 Rx Furosemide [Lasix] 40 mg PO DAILY #30 tablet 01/01/24 12/08/24 Rx Multivitamins, Thera [Multivitamin 1 each PO DAILY@1200 tab 01/01/24 12/08/24 Rx (formulary)] Thiamine [Vitamin B-1] 100 mg PO DAILY@1200 tab 01/01/24 12/08/24 Rx Ascorbic Acid [Vitamin C] 1,000 mg PO DAILY 12/08/24 12/08/24 History Ergocalciferol (Vitamin D2) 1,250 mcg PO WEEKLY 12/08/24 12/08/24 History [Drisdol (50,000 Iu)] HYDROcodone/APAP 7.5-325MG [[place] 1 tab PO BID 12/08/24 12/08/24 History 7.5-325] Prednisolone Acetate/Pf 1 drop BOTH EYES TID 12/08/24 12/08/24 History [Prednisolone Acet 1% Eye Drop] Sertraline HCl [Zoloft] 75 mg PO QAM 12/08/24 12/08/24 History Zinc Gluconate [Zinc] 50 mg PO DAILY 12/08/24 12/08/24 History Allergies Allergy/AdvReac Type Severity Reaction Status Date / Time latex Allergy Rash/Hives Verified 12/08/24 12:45
[~2024-12-09 09:05] MED LIST: LIDOCAINE 1% (10MG/ML) FOR IV START INTRADERMA PRN
[2024-12-09] MEDS: IV FLUID CONTINUATION 1,000 ML IV ONE (10:01)
[2024-12-09 10:19] VITALS: TEMP 98
[2024-12-09] MEDS: LACTATED RINGERS 1,000 ML IV SCH (10:20)
[2024-12-09 10:27] LABS: Glucose,Whole Blood 133 mg/dL (70-110)
[2024-12-09] MEDS ORDERED: PROPOFOL 10 MG/ML 20 ML VIAL IV ONE (11:07)
[2024-12-09 11:57] VITALS: BP 116/66; PULSE 71; RESP 14
--- NOTE | 2024-12-09 12:07 | P.PCN ---
Date of Procedure: 12/09/24 Description of Procedure: PREOPERATIVE DIAGNOSIS: History of perforated diverticulitis with sepsis Colostomy status Concern for colovesical fistula POSTOPERATIVE DIAGNOSIS: History of perforated diverticulitis with sepsis Colostomy status Concern for colovesical fistula OPERATION: Colonoscopy through descending colostomy to appendiceal orifice. Colonoscopy through rectum, colon stump SURGEON: Carolyne Felipe MD. ANESTHESIA: MAC. INDICATIONS: The patient is a 74-year-old female who presents with history of perforated diverticulitis with sepsis. Concerns for fistula from her diverticulitis as a result looser diagnostic colonoscopy. Benefits and risks were described and informed consent was obtained. DESCRIPTION OF PROCEDURE: The patient had undergone GoLytely prep. She had been brought into the operating room and laid supine. The stoma appliance was opened and suction with stool. An Olympus colonoscope was advanced through the descending colostomy to the appendiceal orifice. The prep was excellent with clear visualization of the mucosal folds. The scope was removed with visualization of each mucosal fold. Pandiverticulosis was encountered without diverticulitis. No colonic polyps were found. No evidence of focal colitis was found. The colon was desufflated. The patient was transitioned in the left lateral decubitus position where remnant colon stump was 20 cm from the anal verge with erythema. No polyps identified. Stoma appliance was applied. The patient had tolerated the procedure well. Withdrawal time was over 6 minutes. FINDINGS: [place] preparation quality scale 1 (1-5) No colovesical fistula identified Moderate purulent drainage from colon identified Stage IV sacral ulcer No arteriovenous malformations. No adenomatous polyps. RECOMMENDATIONS: Lower endoscopy as needed Plan - Discharge Summary Discharge Rx Participant: No New Discharge Prescriptions: Continue Furosemide [Lasix] 40 mg PO DAILY #30 tablet Multivitamins, Thera [Multivitamin (formulary)] 1 each PO DAILY@1200 tab Ferrous Sulfate [Feosol] 325 mg PO DAILY #30 tab Prednisolone Acetate/Pf [Prednisolone Acet 1% Eye Drop] 1 drop BOTH EYES TID Sertraline HCl [Zoloft] 75 mg PO QAM Acetaminophen Tab [Tylenol] 650 mg PO Q6HR PRN tab PRN Reason: Mild Pain Or Fever > 100.5 Thiamine [Vitamin B-1] 100 mg PO DAILY@1200 tab Ergocalciferol (Vitamin D2) [Drisdol (50,000 Iu)] 1,250 mcg PO WEEKLY HYDROcodone/APAP 7.5-325MG [[place] 7.5-325] 1 tab PO BID Zinc Gluconate [Zinc] 50 mg PO DAILY Ascorbic Acid [Vitamin C] 1,000 mg PO DAILY Discharge Medication List Acetaminophen Tab [Tylenol] 650 mg PO Q6HR PRN tab 01/01/24 [Rx] Ferrous Sulfate [Feosol] 325 mg PO DAILY #30 tab 01/01/24 [Rx] Furosemide [Lasix] 40 mg PO DAILY #30 tablet 01/01/24 [Rx] Multivitamins, Thera [Multivitamin (formulary)] 1 each PO DAILY@1200 tab 01/01/24 [Rx] Thiamine [Vitamin B-1] 100 mg PO DAILY@1200 tab 01/01/24 [Rx] Ascorbic Acid [Vitamin C] 1,000 mg PO DAILY 12/08/24 [History] Ergocalciferol (Vitamin D2) [Drisdol (50,000 Iu)] 1,250 mcg PO WEEKLY 12/08/24 [History] HYDROcodone/APAP 7.5-325MG [[place] 7.5-325] 1 tab PO BID 12/08/24 [History] Prednisolone Acetate/Pf [Prednisolone Acet 1% Eye Drop] 1 drop BOTH EYES TID 12/08/24 [History] Sertraline HCl [Zoloft] 75 mg PO QAM 12/08/24 [History] Zinc Gluconate [Zinc] 50 mg PO DAILY 12/08/24 [History] Follow up Appointment(s)/Referral(s): Carolyne Felipe MD [STAFF PHYSICIAN] - As Needed Patient Instructions/Handouts: Diverticulitis (GEN) Activity/Diet/Wound Care/Special Instructions: No fistula identified Discharge Disposition: HOME SELF-CARE
== END 2024-12-09 12:59 | disposition home or self-care (01) ==
LOC: ORWHC2ENDO 09:05
PROVIDERS: ATTEND Surgery Plastic and Reconstructive Surgery
DX: K57.32 Diverticulitis of large intestine without perforation or abscess without bleeding (principal); I48.91 Unspecified atrial fibrillation; Z93.3 Colostomy status
CPT/HCPCS: 45378; 44388; J2704